=== PATIENT | female | born 1975 | race Caucasian/White ===

== ENCOUNTER 2017-01-08 14:53 | Emergency (ER) | payer MEDICARE, OTHER ==
[2017-01-08 16:21] LABS: Basophils % (Auto) 0.4 % (0.0-1.8); Hematocrit 39.6 % (30.3-42.9); Hemoglobin 13.4 gm/dl (10.1-14.3); Mean Corpuscular HGB Conc 34 % (30-34); Mean Corpuscular Hemoglobin 31 pg (28-32); Mean Corpuscular Volume 91 fl (79-97); Platelet Count 219 K/mm3 (140-440); Red Blood Count 4.36 M/mm3 (3.65-5.03); Red Cell Distribution Width 13.2 % (13.2-15.2); White Blood Count 8.6 K/mm3 (4.5-11.0)
[2017-01-08 16:25] LABS: Anion Gap 16 mmol/L; BUN/Creatinine Ratio 19; Blood Urea Nitrogen 13 mg/dL (7-17); Calcium 9.6 mg/dL (8.4-10.2); Carbon Dioxide 26 mmol/L (22-30); Chloride 99.7 mmol/L (98-107); Glucose 86 mg/dL (65-100); Potassium 4.1 mmol/L (3.6-5.0); Sodium 138 mmol/L (137-145)
[2017-01-08 16:57] LABS: Bilirubin,Urine NEG (Negative); Blood,Urine NEG (Negative); Ketones,Urine NEG (Negative); Leukocyte Esterase,Urine NEG (Negative); Mucus,Urine 1+ /HPF; Nitrite,Urine NEG (Negative); Protein,Urine <15 mg/dL mg/dL (Negative); Urobilinogen,Urine < 2.0 mg/dL (<2.0)
--- NOTE | 2017-01-08 22:02 | Emergency Department Report ---
HPI - General Chief Complaint: Nausea/Vomiting/Diarrhea Time Seen by Provider: 01/08/17 21:37 - HPI HPI: Room 6 The patient is a 41-year-old female presenting with a chief complaint of diarrhea. The patient states the past 3 days she's had diarrhea subjective fever or chills and periumbilical abdominal pain. The patient states the abdominal pain is periumbilical and constant. The patient gets her pain score 10/10. The patient has a history of gastroparesis and when asked if her presentation feels similar to gastroparesis she states it "feels like it but feels like something else." Location: Abdomen Duration: [See above] Quality: Pain Severity: 01/01 Modifying factors: [see above] Context: [see above] Mode of transportation: [not driving] ED Past Medical Hx - Past Medical History Previous Medical History?: Yes Hx Diabetes: Yes (type II) Additional medical history: Gastroparesis - Surgical History Past Surgical History?: Yes Additional Surgical History: PICC line right arm,. Ramirez catheter in the chest. Feeding tube, Hysterectomy. Breast augmentation - Family History Family history: no significant - Social History Smoking Status: Current Every Day Smoker (1 cigarette daily) Substance Use Type: None (denies illicit drug use) - Medications Home Medications: Home Medications Medication Instructions Recorded Confirmed Last Taken Type HYDROcodone/APAP 5-325 [[place] 1 - 2 each PO Q6HR PRN #10 tablet 01/08/17 Unknown Rx 5/325] ED Review of Systems ROS: Stated complaint: NVD Other details as noted in HPI Comment: All other systems reviewed and negative Constitutional: no symptoms reported, chills Eyes: denies: eye pain, eye discharge, vision change ENT: denies: ear pain, throat pain Respiratory: denies: cough, shortness of breath, wheezing Cardiovascular: denies: chest pain, palpitations Endocrine: no symptoms reported Gastrointestinal: abdominal pain, diarrhea Genitourinary: denies: urgency, dysuria, discharge Musculoskeletal: denies: back pain, joint swelling, arthralgia Skin: denies: rash, lesions Neurological: denies: headache, weakness, paresthesias Psychiatric: denies: anxiety, depression Hematological/Lymphatic: denies: easy bleeding, easy bruising Physical Exam - Physical Exam Vital Signs: Vital Signs 01/08/17 15:10 Temperature 97.7 F Pulse Rate 75 Respiratory 18 Rate Blood Pressure 102/77 O2 Sat by Pulse 99 Oximetry Physical Exam: GENERAL: The patient is well-developed well-nourished female lying on stretcher not appearing to be in acute distress. [] HEENT: Normocephalic. Atraumatic. Extraocular motions are intact. NECK: Supple. Trachea midline CHEST/LUNGS: Clear to auscultation. There is no respiratory distress noted. HEART/CARDIOVASCULAR: Regular. There is no tachycardia. There is no gallop rub or murmur. ABDOMEN: Abdomen is soft, with diffuse discomfort to palpation. There is no guarding. Patient has normal bowel sounds. There is no abdominal distention. SKIN: There is no rash. There is no edema. There is no diaphoresis. NEURO: The patient is awake, alert, and oriented. The patient is cooperative. The patient has normal speech MUSCULOSKELETAL: There is no evidence of acute injury. ED Course Vital Signs 01/08/17 15:10 Temperature 97.7 F Pulse Rate 75 Respiratory 18 Rate Blood Pressure 102/77 O2 Sat by Pulse 99 Oximetry ED Medical Decision Making - Lab Data Result diagrams: 01/08/17 15:51 01/08/17 15:51 Laboratory Tests 01/08/17 01/08/17 01/08/17 15:51 15:51 16:16 WBC 8.6 RBC 4.36 Hgb 13.4 Hct 39.6 MCV 91 MCH 31 MCHC 34 RDW 13.2 Plt Count 219 Lymph % (Auto) 34.4 [place] % (Auto) 4.8 Eos % (Auto) 0.0 Baso % (Auto) 0.4 Lymph # 3.0 [place] # 0.4 Eos # 0.0 Baso # 0.0 Seg Neutrophils % 60.4 Seg Neutrophils # 5.2 Sodium 138 Potassium 4.1 Chloride 99.7 Carbon Dioxide 26 Anion Gap 16 BUN 13 Creatinine 0.7 Estimated GFR > 60 BUN/Creatinine Ratio 19 Glucose 86 Calcium 9.6 Urine Color Yellow Urine Turbidity Clear Urine pH 5.0 Ur Specific [place] 1.026 Urine Protein <15 mg/dl Urine Glucose (UA) Neg Urine Ketones Neg Urine Blood Neg Urine Nitrite Neg Urine Bilirubin Neg Urine Urobilinogen < 2.0 Ur Leukocyte Esterase Neg Urine WBC (Auto) 2.0 Urine RBC (Auto) 1.0 U Epithel Cells (Auto) 4.0 Urine Mucus 1+ - Radiology Data Radiology results: report reviewed (CT abdomen and pelvis), image reviewed (CT abdomen pelvis) CT abdomen and pelvis (read by radiologist)-no evidence of acute disease in the abdomen - Differential Diagnosis gastroparesis, enteritis Critical care attestation.: If time is entered above; I have spent that time in minutes in the direct care of this critically ill patient, excluding procedure time. ED Disposition Clinical Impression: Diarrhea, Abdominal pain, Gastroparesis Disposition: TO HOME OR SELFCARE Is pt being admited?: No Does the pt Need Aspirin: No Condition: Stable Instructions: Acute Diarrhea (ED) Additional Instructions: Return to the emergency department immediately should you develop worsening symptoms, fever, inability to tolerate food or liquid or any other concerns. Prescriptions: HYDROcodone/APAP 5-325 [[place] 5/325] 1 - 2 each PO Q6HR PRN #10 tablet PRN Reason: Pain Referrals: PRIMARY CARE, [Primary Care Provider] - [facility]EL[facility] Dr. Garcia, gastroenterology [Other] - [facility] Time of Disposition: 23:41
[2017-01-08] MEDS ORDERED: MORPHINE ONE ×2 (22:12→23:09)
[2017-01-08] MEDS ORDERED: NACL 0.9% 1000 ML 1,000 ML ONE (22:13)
[2017-01-08] MEDS: MORPHINE IV ONE ×2 (22:20→23:09)
[2017-01-08] MEDS: ZOFRAN IV ONE (22:21)
--- NOTE | 2017-01-08 23:37 | Cat Scan Report ---
FINAL REPORT PROCEDURE: CT abdomen with contrast. TECHNIQUE: Computerized axial tomography of the abdomen was performed following the IV injection of iodinated nonionic contrast. HISTORY: Diffuse abdominal pain, nausea and vomiting. COMPARISON: No prior studies are available for comparison. FINDINGS: The lung bases are clear. There are no pleural effusions. The heart size is normal. There are bilateral breast prostheses. There is an external catheter that appears to enter the subcutaneous tissues of the left breast. This happens medially. This catheter is of uncertain significance. The liver, spleen and pancreas appear normal. The gallbladder is present. There is a small mass in the medial limb of the right adrenal gland. This has fairly low attenuation and measures 13.6 millimeters x 9.7 millimeters in cross-section. This is consistent with a small adenoma. Both kidneys appear normal in size and configuration. The abdominal aorta has a normal caliber. There is no retroperitoneal adenopathy. There is a gastrostomy tube that terminates in the 1st portion of the duodenum. The unopacified gastrointestinal tract is unremarkable as far as visualized. A normal appendix is visible. The regional skeleton appears intact. The pelvis was not scanned. IMPRESSION: Small catheter of uncertain significance entering the subcutaneous tissues of the left breast. Gastrostomy tube terminating in duodenal bulb. Bilateral breast prostheses. Small right adrenal adenoma. No evidence of acute disease in the abdomen.
[2017-01-09] MEDS: NORCO PO ONE (00:20)
[2017-01-09 00:41] VITALS: BP 107/75
== END 2017-01-09 00:40 | disposition home or self-care (01) ==
LOC: ED 14:53
DX: K31.84 Gastroparesis (principal); R10.33 Periumbilical pain; R19.7 Diarrhea, unspecified; E11.9 Type 2 diabetes mellitus without complications; F17.200 Nicotine dependence, unspecified, uncomplicated
CPT/HCPCS: 36415; 74160; 80048; 81001; 82962; 85025; 96374; 96375; 96376; 99284; J2270; J2405; J7030; Q9967

== ENCOUNTER 2017-02-16 21:44 | Emergency (ER) | payer OTHER ==
[2017-02-17 01:51] LABS: Basophils % (Auto) 0.8 % (0.0-1.8); Eosinophils % (Auto) 0.1 % (0.0-4.3); Hematocrit 35.8 % (30.3-42.9); Hemoglobin 12.3 gm/dl (10.1-14.3); Mean Corpuscular HGB Conc 34 % (30-34); Mean Corpuscular Hemoglobin 31 pg (28-32); Mean Corpuscular Volume 92 fl (79-97); Platelet Count 203 K/mm3 (140-440); Red Blood Count 3.92 M/mm3 (3.65-5.03); White Blood Count 7.7 K/mm3 (4.5-11.0)
[2017-02-17 01:53] LABS: Alanine Aminotransferase 60 units/L (7-56); Albumin 4.4 g/dL (3.9-5); Albumin/Globulin Ratio 1.5 %; Alkaline Phosphatase 102 units/L (35-129); Anion Gap 16 mmol/L; BUN/Creatinine Ratio 16; Bilirubin,Total < 0.20 mg/dL (0.1-1.2); Blood Urea Nitrogen 11 mg/dL (7-17); Calcium 9.3 mg/dL (8.4-10.2); Carbon Dioxide 27 mmol/L (22-30); Chloride 101.7 mmol/L (98-107); Glucose 89 mg/dL (65-100); Lipase 14 units/L (13-60); Potassium 4.2 mmol/L (3.6-5.0); Sodium 140 mmol/L (137-145); Total Protein 7.3 g/dL (6.3-8.2)
[2017-02-17 03:26] LABS: Bacteria,Urine 1+ /HPF (Negative); Bilirubin,Urine NEG (Negative); Blood,Urine NEG (Negative); Ketones,Urine NEG (Negative); Leukocyte Esterase,Urine SM (Negative); Mucus,Urine 1+ /HPF; Nitrite,Urine NEG (Negative); Protein,Urine <15 mg/dL mg/dL (Negative); Urobilinogen,Urine < 2.0 mg/dL (<2.0)
[2017-02-17] MEDS ORDERED: NORCO 5/325 PO ONE (08:50)
[2017-02-17] MEDS ORDERED: ZOFRAN IV ONE (10:22)
[2017-02-17] MEDS ORDERED: NACL 0.9% 1000 ML 1,000 ML IV ONE (10:22)
[2017-02-17] MEDS ORDERED: MORPHINE IV ONE (10:22)
--- NOTE | 2017-02-17 10:29 | Emergency Department Report ---
HPI - General Chief Complaint: Abdominal Pain Time Seen by Provider: 02/17/17 10:07 - HPI HPI: This is a 41-year-old female who presents to the emergency department with complaint of a 2 day history of nausea, vomiting, diarrhea and abdominal pain/ cramping. She has a history of diabetic gastroparesis and has a severe course of this causes her to get TPN 18 hours a day, IV fluid 2 hours a day, and has a feeding tube in her abdomen. She also has some home health care and the nurse came today and tried to access her chest port but it would not flush or pull back any blood. Without access from the chest port she has been unable to take anything for her symptoms. She spoke to her donor relations associate and was advised to come to the emergency department. Her donor relations associate is Dr. Mckinney through [facility]. She has an oncologist for the fascia paresis who also placed to the chest port. She has a surgical history of hysterectomy. No recent travel or sick contacts at home. She denies any fever, chest pain, shortness of breath. ED Past Medical Hx - Past Medical History Previous Medical History?: Yes Hx Diabetes: Yes (type II) Additional medical history: Gastroparesis, Unable to eat or drink on TPN 18 hours a day and IVF 2 hours a day, REBEL Button - Surgical History Past Surgical History?: Yes Additional Surgical History: PICC line right arm,. Ramirez catheter in the chest. Feeding tube, Hysterectomy. Breast augmentation - Social History Smoking Status: Never Smoker - Medications Home Medications: Home Medications Medication Instructions Recorded Confirmed Last Taken Type HYDROcodone/APAP 7.5-325 [[place]] 15 ml PO Q4-6H PRN #150 ml 01/08/17 Unknown Rx Acetaminophen with Codeine 15 ml PO Q6H PRN #180 ml 02/17/17 Unknown Rx [Acetaminop-Codeine 120-12 mg/5] Ondansetron [Zofran Odt] 4 mg PO Q8HR PRN #10 tab.rapdis 02/17/17 Unknown Rx ED Review of Systems ROS: Stated complaint: ABD PAIN/VOMITING/DIARRHEA/HEADACHE Other details as noted in HPI Comment: All other systems reviewed and negative Constitutional: denies: chills, fever Eyes: denies: eye pain, eye discharge, vision change ENT: denies: ear pain, throat pain Respiratory: denies: cough, shortness of breath, wheezing Cardiovascular: denies: chest pain, palpitations Gastrointestinal: abdominal pain, nausea, vomiting, diarrhea Genitourinary: denies: urgency, dysuria, discharge Musculoskeletal: denies: back pain, joint swelling, arthralgia Skin: denies: rash, lesions Neurological: denies: headache, weakness, paresthesias Physical Exam - Physical Exam Vital Signs: Vital Signs 02/17/17 02/17/17 00:19 05:42 Temperature 98.2 F 97.9 F Pulse Rate 83 75 Respiratory 18 18 Rate Blood Pressure 110/80 115/73 O2 Sat by Pulse 99 98 Oximetry Physical Exam: GENERAL: The patient is well-developed well-nourished. HENT: Normocephalic. Atraumatic. Patient has moist mucous membranes. EYES: Extraocular motions are intact. Pupils equal reactive to light bilaterally. NECK: Supple. Trachea is midline. CHEST/LUNGS: Clear to auscultation. There is no respiratory distress noted. HEART/CARDIOVASCULAR: Regular. There is no tachycardia. There is no gallop rub or murmur. ABDOMEN: Abdomen is soft. There is some mild generalized tenderness to palpation of the abdomen. No guarding rebound tenderness. There is a feeding tube in place. Patient has normal bowel sounds. There is no abdominal distention. SKIN: Skin is warm and dry. NEURO: The patient is awake, alert, and oriented. The patient is cooperative. The patient has no focal neurologic deficits. The patient has normal speech. MUSCULOSKELETAL: There is no tenderness or deformity. There is no limitation range of motion. There is no evidence of acute injury. ED Course Vital Signs 02/17/17 02/17/17 00:19 05:42 Temperature 98.2 F 97.9 F Pulse Rate 83 75 Respiratory 18 18 Rate Blood Pressure 110/80 115/73 O2 Sat by Pulse 99 98 Oximetry ED Medical Decision Making - Lab Data Result diagrams: 02/17/17 01:01 02/17/17 01:01 - Radiology Data Radiology results: image reviewed interpreted by me: Abdominal x-ray shows a large amount of stool throughout the intestines but otherwise no signs of obstruction or any other acute processes. - Medical Decision Making 41-year-old female with history of gastroparesis presents with some nausea and vomiting and abdominal discomfort. Labs and unremarkable. Abdominal x-ray shows stool throughout the intestines but no signs of obstruction and this was confirmed by radiology. She was given some IV fluid, pain medication, nausea medication and upon reevaluation she is feeling improved. We were able to show that her catheter in the chest is working. She has good follow-up with both primary care and gastroenterology. She appears safe for discharge home at this time. Vital signs stable throughout her ED course. She will be discharged home with a 3 day course of pain medication and sling for nausea and encouraged follow-up with her donor relations associate in the next 24 hours. She will return to the ER with any worsening of her symptoms or any acute distress. - Differential Diagnosis food poisoning, viral syndrome, diabetic gastroparesis, colitis Critical Care Time: No Critical care attestation.: If time is entered above; I have spent that time in minutes in the direct care of this critically ill patient, excluding procedure time. ED Disposition Clinical Impression: Gastroparesis due to DM Abdominal pain Qualifiers: Abdominal location: generalized Qualified Code(s): R10.84 - Generalized abdominal pain Nausea & vomiting Qualifiers: Vomiting type: unspecified Vomiting Intractability: non-intractable Qualified Code(s): R11.2 - Nausea with vomiting, unspecified Disposition: DC-01 TO HOME OR SELFCARE Is pt being admited?: No Condition: Stable Instructions: Acute Nausea and Vomiting (ED), Abdominal Pain (ED) Additional Instructions: These follow-up with your donor relations associate and primary care doctor in the next few days. Return to the emergency Department with any worsening of your symptoms or any acute distress. You have been prescribed a medication that is sedating and therefore should not be taken prior to driving, working, and responsible for children and in no way should be mixed with alcohol of any quantity. Prescriptions: Acetaminophen with Codeine [Acetaminop-Codeine 120-12 mg/5] 15 ml PO Q6H PRN # 180 ml PRN Reason: Pain Ondansetron [Zofran Odt] 4 mg PO Q8HR PRN #10 tab.rapdis PRN Reason: Nausea Referrals: PRIMARY CARE, [Primary Care Provider] - [facility] Time of Disposition: 14:07
[2017-02-17] MEDS ORDERED: DILAUDID IV ONE (10:59)
[2017-02-17 11:26] VITALS: BP 121/74
--- NOTE | 2017-02-17 12:23 | XRay Report ---
Abdomen 2 views: History: Abdominal pain. Findings: No free intraperitoneal air. No bowel distention or wall thickening due to stool in colon. No radiopaque calculus or abnormal calcification. Impression: Stool in colon. No bowel distention.
[2017-02-17] MEDS ORDERED: TYLENOL/CODEINE FEEDTUBE ONE (12:49)
== END 2017-02-17 14:50 | disposition home or self-care (01) ==
LOC: ED 21:44
DX: E11.43 Type 2 diabetes mellitus with diabetic autonomic (poly)neuropathy (principal); K31.84 Gastroparesis; R10.84 Generalized abdominal pain; R11.2 Nausea with vomiting, unspecified; Z88.8 Allergy status to other drugs, medicaments and biological substances; Z88.0 Allergy status to penicillin
CPT/HCPCS: 36415; 74020; 80053; 81001; 82962; 83690; 85025; 96361; 96374; 96375; 99284; J1170; J2270; J2405; J7030

== ENCOUNTER 2017-07-02 12:56 | Emergency (ER) | payer OTHER ==
[2017-07-02 13:10] VITALS: BP 91/66
--- NOTE | 2017-07-02 14:32 | Emergency Department Report ---
ED ENT HPI - General Chief complaint: Dental/Oral Stated complaint: EAR/HEAD/NECK PAIN Time Seen by Provider: 07/02/17 14:13 Source: patient Mode of arrival: Ambulatory Limitations: No Limitations - History of Present Illness Initial comments: Patient is a 41-year-old female who is presenting with right sided facial pain. Patient states that for the past 3 days she has had pain in the right lower jaw with radiation of pain to the right ear neck. Patient states she has a worn tooth in that area that she believes the culprit. Patient denies any nausea vomiting diarrhea fever at this time. Patient does have some mild dizziness but this is chronic patient has a history of gastroparesis as a feeding tube states her blood pressure normally runs around 95 systolic. - Related Data Previous Rx's Medication Instructions Recorded Last Taken Type Acetaminophen with Codeine 15 ml PO Q6H PRN #180 ml 02/17/17 Unknown Rx [Acetaminop-Codeine 120-12 mg/5] Ondansetron [Zofran Odt] 4 mg PO Q8HR PRN #10 tab.rapdis 02/17/17 Unknown Rx Clindamycin [Clindamycin CAP] 600 mg PO BID 7 Days capsule 07/02/17 Unknown Rx HYDROcodone/APAP 7.5-325 [[place] 15 ml PO Q4-6H PRN #150 ml 07/02/17 Unknown Rx 7.5-325 mg per 15 ML] Allergies Allergy/AdvReac Type Severity Reaction Status Date / Time ketorolac [From Toradol] Allergy Swelling Verified 01/08/17 15:10 Penicillins Allergy Swelling Verified 01/08/17 15:09 promethazine [From Phenergan] Allergy Swelling Verified 01/08/17 15:10 tramadol Allergy Swelling Verified 01/08/17 15:10 ED Dental HPI - General Chief complaint: Dental/Oral Stated complaint: EAR/HEAD/NECK PAIN Time Seen by Provider: 07/02/17 14:13 Source: patient Mode of arrival: Ambulatory Limitations: No Limitations - Related Data Previous Rx's Medication Instructions Recorded Last Taken Type Acetaminophen with Codeine 15 ml PO Q6H PRN #180 ml 02/17/17 Unknown Rx [Acetaminop-Codeine 120-12 mg/5] Ondansetron [Zofran Odt] 4 mg PO Q8HR PRN #10 tab.rapdis 02/17/17 Unknown Rx Clindamycin [Clindamycin CAP] 600 mg PO BID 7 Days capsule 07/02/17 Unknown Rx HYDROcodone/APAP 7.5-325 [[place] 15 ml PO Q4-6H PRN #150 ml 07/02/17 Unknown Rx 7.5-325 mg per 15 ML] Allergies Allergy/AdvReac Type Severity Reaction Status Date / Time ketorolac [From Toradol] Allergy Swelling Verified 01/08/17 15:10 Penicillins Allergy Swelling Verified 01/08/17 15:09 promethazine [From Phenergan] Allergy Swelling Verified 01/08/17 15:10 tramadol Allergy Swelling Verified 01/08/17 15:10 ED Review of Systems ROS: Stated complaint: EAR/HEAD/NECK PAIN Other details as noted in HPI Comment: All other systems reviewed and negative ED Past Medical Hx - Past Medical History Hx Diabetes: Yes (type II) Additional medical history: Gastroparesis, Unable to eat or drink on TPN 18 hours a day and IVF 2 hours a day, REBEL Button - Surgical History Additional Surgical History: Infusaport left chest wall. G-tube(2016) and J- tube(2017), Hysterectomy. Breast augmentation - Social History Smoking Status: Never Smoker Substance Use Type: None - Medications Home Medications: Home Medications Medication Instructions Recorded Confirmed Last Taken Type Acetaminophen with Codeine 15 ml PO Q6H PRN #180 ml 02/17/17 Unknown Rx [Acetaminop-Codeine 120-12 mg/5] Ondansetron [Zofran Odt] 4 mg PO Q8HR PRN #10 tab.rapdis 02/17/17 Unknown Rx Clindamycin [Clindamycin CAP] 600 mg PO BID 7 Days capsule 07/02/17 Unknown Rx HYDROcodone/APAP 7.5-325 [[place] 15 ml PO Q4-6H PRN #150 ml 07/02/17 Unknown Rx 7.5-325 mg per 15 ML] ED Physical Exam - General Limitations: No Limitations General appearance: alert, in no apparent distress - Head Head exam: Present: atraumatic, normocephalic - Eye Eye exam: Present: normal appearance - ENT ENT exam: Present: mucous membranes moist, other (patient has tenderness to the area of the first molar on the right bottom. This tooth is worn down to the level of the gum.) - Neck Neck exam: Present: normal inspection - Respiratory Respiratory exam: Present: normal lung sounds bilaterally. Absent: respiratory distress - Cardiovascular Cardiovascular Exam: Present: regular rate, normal rhythm. Absent: systolic murmur, diastolic murmur, rubs, gallop - GI/Abdominal GI/Abdominal exam: Present: soft, normal bowel sounds - Extremities Exam Extremities exam: Present: normal inspection - Back Exam Back exam: Present: normal inspection - Neurological Exam Neurological exam: Present: alert, oriented X3 - Psychiatric Psychiatric exam: Present: normal affect, normal mood - Skin Skin exam: Present: warm, dry, intact, normal color. Absent: rash ED Course Vital Signs 07/02/17 13:06 Temperature 98.6 F Pulse Rate 96 H Respiratory 16 Rate Blood Pressure 91/66 O2 Sat by Pulse 96 Oximetry ED Medical Decision Making - Medical Decision Making Patient will be given follow-up with sinus at medical clinic to the dental area. Patient also will be discharged home with antibiotics and pain meds. Critical care attestation.: If time is entered above; I have spent that time in minutes in the direct care of this critically ill patient, excluding procedure time. ED Disposition Clinical Impression: Dental abscess Disposition: DC-01 TO HOME OR SELFCARE Is pt being admited?: No Does the pt Need Aspirin: No Condition: Stable Instructions: Dental Abscess (ED) Prescriptions: Clindamycin [Clindamycin CAP] 600 mg PO BID 7 Days capsule HYDROcodone/APAP 7.5-325 [[place] 7.5-325 mg per 15 ML] 15 ml PO Q4-6H PRN #150 ml PRN Reason: Pain Referrals: [facility] [Outside] - 3-5 Days
== END 2017-07-02 14:36 | disposition home or self-care (01) ==
LOC: ED 12:56
DX: K04.7 Periapical abscess without sinus (principal); E11.9 Type 2 diabetes mellitus without complications; Z88.6 Allergy status to analgesic agent; Z88.1 Allergy status to other antibiotic agents; Z88.8 Allergy status to other drugs, medicaments and biological substances
CPT/HCPCS: 99282

== ENCOUNTER 2017-07-14 22:18 | Emergency (ER) | payer OTHER ==
[2017-07-14 23:33] LABS: Basophils % (Auto) 0.3 % (0.0-1.8); Hemoglobin 12.3 gm/dl (10.1-14.3); Lymphocytes # (Auto) 2.7 K/mm3 (1.2-5.4); Lymphocytes % (Auto) 30.7 % (13.4-35.0); Mean Corpuscular HGB Conc 33 % (30-34); Mean Corpuscular Hemoglobin 30 pg (28-32); Mean Corpuscular Volume 90 fl (79-97); Monocytes # (Auto) 0.5 K/mm3 (0.0-0.8); Monocytes % (Auto) 5.2 % (0.0-7.3); Platelet Count 259 K/mm3 (140-440); Red Blood Count 4.12 M/mm3 (3.65-5.03); Red Cell Distribution Width 12.8 % (13.2-15.2)
[2017-07-14 23:48] LABS: Alanine Aminotransferase 11 units/L (7-56); Albumin 3.9 g/dL (3.9-5); BUN/Creatinine Ratio 13; Blood Urea Nitrogen 9 mg/dL (7-17); Calcium 8.8 mg/dL (8.4-10.2); Hemolysis Index 7; Lipase 15 units/L (13-60)
[2017-07-15] MEDS ORDERED: MORPHINE IV ONE (07:12)
[2017-07-15] MEDS ORDERED: ZOFRAN IV ONE ×2 (07:52→10:41)
[2017-07-15] MEDS ORDERED: NACL 0.9% 1000 ML 1,000 ML IV ONE (08:18)
--- NOTE | 2017-07-15 08:18 | Emergency Department Report ---
ED N/V/D HPI - General Chief complaint: Abdominal Pain Stated complaint: FEVER,HEADACHE,DIARRHEA,STOMACH PAIN Time Seen by Provider: 07/15/17 06:14 Source: patient Mode of arrival: Ambulatory Limitations: No Limitations - History of Present Illness Initial comments: Pt is a 41 yo female with a history of diabetic gastroparesis who presents with vomiting, diarrhea, and abdominal pain. Pt states she had a j tube placed in [place] . Pt states she also has a port. Pt states she has had these symptoms for 5 days. Pt states she vomited about 10 times and had the same amount of episodes of diarrhea. pt states she also had fever, sore throat, and feeling ill. PT STATES THAT SHE HAS A J TUBE DUE TO HER GASTROPARESIS AND IS ON TPN. PT STATES HER GI IS DR WILSON AND DR ANAND IS HER SURGEON. PT STATES SHE TAKE TYLENOL #3 AT HOME FOR HER PAIN. MD complaint: nausea, vomiting, diarrhea Location: epigastric Quality: cramping Improves with: rest Context: history of abdominal surg - Related Data Previous Rx's Medication Instructions Recorded Last Taken Type Ondansetron [Zofran ODT TAB] 4 mg PO Q8HR PRN #10 tab.rapdis 07/15/17 Unknown Rx Allergies Allergy/AdvReac Type Severity Reaction Status Date / Time ketorolac [From Toradol] Allergy Swelling Verified 01/08/17 15:10 metoclopramide [From Reglan] Allergy Unknown Verified 07/14/17 22:49 Penicillins Allergy Swelling Verified 01/08/17 15:09 prochlorperazine Allergy Unknown Verified 07/14/17 22:49 [From Compazine] promethazine [From Phenergan] Allergy Swelling Verified 01/08/17 15:10 tramadol Allergy Swelling Verified 01/08/17 15:10 ED Review of Systems ROS: Stated complaint: FEVER,HEADACHE,DIARRHEA,STOMACH PAIN Other details as noted in HPI ED Past Medical Hx - Past Medical History Hx Diabetes: Yes (type II) Additional medical history: Gastroparesis, Unable to eat or drink on TPN 18 hours a day and IVF 2 hours a day, REBEL Button - Surgical History Additional Surgical History: Infusaport left chest wall. G-tube(2016) and J- tube(2017), Hysterectomy. Breast augmentation - Social History Smoking Status: Never Smoker Substance Use Type: None - Medications Home Medications: Home Medications Medication Instructions Recorded Confirmed Last Taken Type Ondansetron [Zofran ODT TAB] 4 mg PO Q8HR PRN #10 tab.rapdis 07/15/17 Unknown Rx ED Physical Exam - General Limitations: No Limitations General appearance: alert - Head Head exam: Present: atraumatic, normocephalic - Eye Eye exam: Present: normal appearance, PERRL, EOMI - ENT ENT exam: Present: normal exam - Neck Neck exam: Present: normal inspection - Respiratory Respiratory exam: Present: normal lung sounds bilaterally. Absent: respiratory distress, wheezes, rales, rhonchi, stridor - Cardiovascular Cardiovascular Exam: Present: normal rhythm, tachycardia, normal heart sounds - GI/Abdominal GI/Abdominal exam: Present: soft, tenderness (midepigastric), normal bowel sounds. Absent: distended, guarding, rebound - Extremities Exam Extremities exam: Present: normal inspection, full ROM - Back Exam Back exam: Present: normal inspection - Neurological Exam Neurological exam: Present: alert, oriented X3, CN II-XII intact, normal gait - Skin Skin exam: Present: other (multiple tattooes) ED Course Vital Signs 07/14/17 07/14/17 07/15/17 22:33 22:44 05:32 Temperature 98.2 F 98.2 F 98.0 F Pulse Rate 105 H 110 H 89 Respiratory 18 18 20 Rate Blood Pressure 121/68 121/68 Blood Pressure 119/73 [Left] O2 Sat by Pulse 97 98 Oximetry 07/15/17 07/15/17 09:47 12:10 Temperature 98.6 F Pulse Rate 85 Respiratory 16 18 Rate Blood Pressure Blood Pressure 97/59 109/73 [Left] O2 Sat by Pulse 99 Oximetry - Reevaluation(s) Reevaluation #1: 07/15/17 11:30 STABLE ED COURSE; PT AWARE THAT SHE WILL BE GOING HOME IF SHE CONTINUES TO REMAIN STABLE. WE HAVE REVIEWED HER LAB STUDIES AND G TUBE STUDY ED Medical Decision Making - Lab Data Result diagrams: 07/14/17 23:13 07/14/17 23:13 - Medical Decision Making PT STATES THAT SHE WAS FEELING NAUSEOUS SO I GAVE HER ZOFRAN; I DISCUSSED WITH THE PT HER FINDINGS; I OFFERED THE PT SOME BENTYL AND SHE REFUSED SAYING SHE HAS SOME AT HOME. PT STATES SHE WILL CALL HER SURGEON. I INFORMED THE PT TO FOLLOW UP WITH HER GI DOCTOR. I HAD REPOSITIONED THE J TUBE THE BALLOON WAS OUT OF THE TRACT. PT STATED THAT IT CAME OUT TODAY WHEN SHE WAS VOMITING. I HAD INFLATED THE BALLOON PRIOR THE G TUBE STUDY FOR PLACMENT VERIFICATION. - Differential Diagnosis DIABETIC GASTROPARESIS, VIRAL ILLNESS Critical care attestation.: If time is entered above; I have spent that time in minutes in the direct care of this critically ill patient, excluding procedure time. ED Disposition Clinical Impression: Diabetic gastroparesis, Jejunostomy tube present, Nausea & vomiting Disposition: - TO HOME OR SELFCARE Is pt being admited?: No Does the pt Need Aspirin: No Condition: Stable Instructions: Diabetes Mellitus Type 2 in Adults (ED), Acute Nausea and Vomiting (ED), Abdominal Pain (ED) Additional Instructions: BE SURE TO FOLLOW UP WITH YOUR GI DOCTOR-CALL TODAY FOR A FOLLW UP APPT; RETURN SOONER IF WORSE OR IF FURTHER CONCERNS TAKE ZOFRAN NEEDED FOR NAUSEA Prescriptions: Ondansetron [Zofran ODT TAB] 4 mg PO Q8HR PRN #10 tab.rapdis PRN Reason: Nausea Referrals: RADHA WYATT MD [Primary Care Provider] - 3-5 Days Time of Disposition: 12:19 Print Language: KOREAN
[2017-07-15] MEDS ORDERED: DILAUDID IV ONE (08:19)
--- NOTE | 2017-07-15 09:42 | XRay Report ---
G-TUBE STUDY History: Evaluate tube location. Findings: A PEG tube is identified terminating in the left upper quadrant. Following the injection of oral contrast, multiple normal caliber small bowel loops in the left upper quadrant are opacified. The gastric cavity is not clearly identified on this exam. Please correlate with the patient's history. No evidence for obstruction or extravasation. Impression: Injection of the PEG tube outlines multiple normal appearing small bowel loops in the left upper quadrant.
[2017-07-15 12:11] VITALS: BP 109/73
== END 2017-07-15 12:56 | disposition home or self-care (01) ==
LOC: ED 22:18
DX: E11.43 Type 2 diabetes mellitus with diabetic autonomic (poly)neuropathy (principal); K31.84 Gastroparesis; Z88.6 Allergy status to analgesic agent; Z88.0 Allergy status to penicillin; Z88.8 Allergy status to other drugs, medicaments and biological substances
CPT/HCPCS: 36415; 43760; 74018; 80053; 83690; 85025; 96361; 96374; 96375; 96376; 99283; J1170; J2270; J2405; J7030; Q9967

== ENCOUNTER 2017-10-03 15:25 | Emergency (ER) | payer SELFPAY ==
[2017-10-03 15:37] VITALS: BP 125/74
[2017-10-03 16:16] LABS: Bilirubin,Urine NEG (Negative); Blood,Urine LG (Negative); Mucus,Urine 3+ /HPF; Urobilinogen,Urine < 2.0 mg/dL (<2.0)
[2017-10-03 16:21] LABS: Color,Urine Red (Yellow); RBC,Urine > 182.0 /HPF (0.0-6.0)
[2017-10-03 16:22] LABS: Hematocrit 38.4 % (30.3-42.9); Hemoglobin 12.3 gm/dl (10.1-14.3); Mean Corpuscular HGB Conc 32 % (30-34); Mean Corpuscular Hemoglobin 29 pg (28-32); Mean Corpuscular Volume 92 fl (79-97); Red Blood Count 4.19 M/mm3 (3.65-5.03); Red Cell Distribution Width 15.9 % (13.2-15.2)
[2017-10-03 16:23] LABS: Basophils % (Auto) 0.4 % (0.0-1.8); Lymphocytes # (Auto) 2.4 K/mm3 (1.2-5.4); Lymphocytes % (Auto) 34.8 % (13.4-35.0); Monocytes # (Auto) 0.5 K/mm3 (0.0-0.8); Monocytes % (Auto) 7.5 % (0.0-7.3); Platelet Count 218 K/mm3 (140-440)
[2017-10-03 16:26] LABS: Alanine Aminotransferase 15 units/L (7-56); Albumin 4.4 g/dL (3.9-5); BUN/Creatinine Ratio 8; Blood Urea Nitrogen 6 mg/dL (7-17); Hemolysis Index 8; Lipase 12 units/L (13-60)
[2017-10-03] MEDS ORDERED: MORPHINE IV ONE (16:39)
[2017-10-03] MEDS ORDERED: ZOFRAN IV ONE (16:39)
[2017-10-03] MEDS ORDERED: NACL 0.9% 1000 ML 1,000 ML IV ONE (16:40)
--- NOTE | 2017-10-03 16:44 | Emergency Department Report ---
ED Abdominal Pain HPI - General Chief Complaint: Urogenital-Female Stated Complaint: BLOOD IN URINE Time Seen by Provider: 10/03/17 16:16 Source: patient Mode of arrival: Ambulatory Limitations: No Limitations - History of Present Illness Initial Comments: Patient is 41 years old female history of gastroparesis on TPN. Patient presented to the ER complaining of bilateral flank pain for the last 2 days associated with hematuria. Patient denied any fever or vomiting. No dysuria or urinary frequency. Patient was recently discharged from the hospital after she was admitted for sepsis secondary to port infection. MD Complaint: flank pain -: Last night Location: L flank, R flank Radiation: none Migration to: no migration Severity: moderate Severity scale (0 -10): 5 Quality: aching Consistency: constant Improves With: nothing Worsens With: nothing - Related Data Previous Rx's Medication Instructions Recorded Last Taken Type Acetaminophen/Codeine [Tylenol 1 tab PO Q6H PRN #12 tab 09/12/17 Unknown Rx /Codeine # 3 tab] Ondansetron [Zofran ODT TAB] 4 mg PO Q8HR PRN #10 tab.rapdis 09/12/17 Unknown Rx Allergies Allergy/AdvReac Type Severity Reaction Status Date / Time ketorolac [From Toradol] Allergy Swelling Verified 01/08/17 15:10 metoclopramide [From Reglan] Allergy Unknown Verified 07/14/17 22:49 Penicillins Allergy Swelling Verified 01/08/17 15:09 prochlorperazine Allergy Unknown Verified 07/14/17 22:49 [From Compazine] promethazine [From Phenergan] Allergy Swelling Verified 01/08/17 15:10 tramadol Allergy Swelling Verified 01/08/17 15:10 adhesive tape AdvReac Itching Verified 09/04/17 10:45 ED Review of Systems ROS: Stated complaint: BLOOD IN URINE Other details as noted in HPI Comment: All other systems reviewed and negative Constitutional: denies: chills, fever Cardiovascular: denies: chest pain Gastrointestinal: denies: abdominal pain, nausea, vomiting, diarrhea, constipation, hematemesis, hematochezia Genitourinary: hematuria. denies: urgency, dysuria Neurological: denies: headache, weakness, numbness, paresthesias, confusion, abnormal gait ED Past Medical Hx - Past Medical History Previous Medical History?: Yes Hx Diabetes: (hypoglycemia) Hx Deep Vein Thrombosis: No Additional medical history: Gastroparesis, Unable to eat or drink on TPN 18 hours a day and IVF 2 hours a day, REBEL Button - Surgical History Past Surgical History?: Yes Hx Pacemaker: No Hx Internal Defibrillator: No Additional Surgical History: Infusaport left chest wall. G-tube(2016) and J- tube(2017), Hysterectomy. Breast augmentation, PICC line - Social History Smoking Status: Never Smoker Substance Use Type: Prescribed - Medications Home Medications: Home Medications Medication Instructions Recorded Confirmed Last Taken Type Acetaminophen/Codeine [Tylenol 1 tab PO Q6H PRN #12 tab 09/12/17 Unknown Rx /Codeine # 3 tab] Ondansetron [Zofran ODT TAB] 4 mg PO Q8HR PRN #10 tab.rapdis 09/12/17 Unknown Rx ED Physical Exam - General Limitations: No Limitations General appearance: alert, in no apparent distress - Head Head exam: Present: atraumatic, normocephalic, normal inspection - Eye Eye exam: Present: normal appearance - ENT ENT exam: Present: normal exam, normal orophraynx, mucous membranes moist - Neck Neck exam: Present: normal inspection, full ROM. Absent: tenderness, meningismus - Respiratory Respiratory exam: Present: normal lung sounds bilaterally. Absent: respiratory distress, wheezes, rales, rhonchi, chest wall tenderness - Cardiovascular Cardiovascular Exam: Present: regular rate, normal rhythm, normal heart sounds - GI/Abdominal GI/Abdominal exam: Present: soft, normal bowel sounds. Absent: distended, tenderness, guarding, rebound, rigid, diminished bowel sounds, organomegaly, mass, bruit, pulsatile mass - Extremities Exam Extremities exam: Present: normal inspection, normal capillary refill. Absent: calf tenderness - Back Exam Back exam: Present: normal inspection, full ROM, CVA tenderness (R), CVA tenderness (L). Absent: muscle spasm, paraspinal tenderness, vertebral tenderness - Neurological Exam Neurological exam: Present: alert, oriented X3, CN II-XII intact, normal gait, reflexes normal - Skin Skin exam: Present: warm, intact, normal color ED Course Vital Signs 10/03/17 10/03/17 15:32 17:04 Temperature 98.4 F Pulse Rate 85 Respiratory 20 20 Rate Blood Pressure 125/74 O2 Sat by Pulse 97 Oximetry - Reevaluation(s) Reevaluation #1: 10/03/17 18:08 Patient stated that she is feeling much better. I informed about her CT abdomen and pelvis results and I strongly advised her to follow up with her primary care physician. I also advised her to retain to the ER if her symptoms are not improving. ED Medical Decision Making - Lab Data Result diagrams: 10/03/17 15:42 10/03/17 15:42 - Radiology Data Radiology results: report reviewed Referring Physician: AIDEE RODRIGEZ Patient Name: CHUY MIRELES Date of : 1975 Sex: Female Report Date: 2017-10-03 Report Status: [place] [address] Cat Scan Report Signed Patient: CHUY REAL MR#: [id number] : 1975 Acct:[id number] Age/Sex: 41 / F ADM Date: 10/03/17 Loc: ED Attending Dr: Ordering Physician: AIDEE RODRIGEZ Date of Service: 10/03/17 Procedure(s): CT abdomen pelvis wo con Accession Number(s): [id number] cc: AIDEE RODRIGEZ FINAL REPORT PROCEDURE: CT ABDOMEN PELVIS WO CON TECHNIQUE: Computerized axial tomography of the abdomen and pelvis was performed without intravenous contrast. This study is performed without intravascular contrast material and its sensitivity for abdominal and pelvic pathology, including neoplasms, inflammation, abscess, free fluid, thrombosis, arterial dissection and infarction, is reduced compared with a contrast enhanced study. HISTORY: ABDOMINAL PAIN/flank pain and hematuria COMPARISON: Prior CT scan abdomen and pelvis 09/03/2017 FINDINGS: Lower Lung valle: Portions of bilateral breast implants visualized. Lung bases are clear today. Upper Abdomen: The liver, gallbladder, unenhanced images of the pancreas and spleen are unremarkable. Kidneys, Ureters and Urinary bladder: There is a nonobstructing 3 millimeter calculus in the lower 3rd of the right kidney. The kidneys, the ureters and urinary bladder otherwise are unremarkable. Left adrenal gland is unremarkable. Oval low-density nodule right adrenal gland measuring 2.0 x 1.1 centimeter is unchanged. The appearance suggest a small adrenal adenoma. This has a density of approximately 3.4 Hounsfield units. Retroperitoneum: Abdominal aorta appears normal. Nonspecific subcentimeter lymph nodes are seen in the retroperitoneum. No pathologically enlarged lymph nodes are identified. Bowel: Peg tube in place as well as gastrostomy tube. These are unchanged compared to the prior study and appear to be in good position. Bowel loops otherwise unremarkable. No evidence of bowel obstruction ascites or free intraperitoneal gas. Normal-appearing appendix seen in the right lower quadrant. Reproductive organs: Uterus is surgically absent. No abnormal adnexal masses are seen. Other: No acute bony abnormalities are identified. IMPRESSION: Stable small nonobstructing calculus lower 3rd right kidney. Kidneys ureters and urinary bladder otherwise are unremarkable. Peg tube and percutaneous jejunal tube remain in place unchanged in appear to be good position.. Prior hysterectomy. Transcribed By: KISHORE Dictated By: ERNESTINE DANIELS MD Electronically Authenticated By: ERNESTINE DANIELS MD Signed Date/Time: 10/03/171740 DD/ 40 TD/TT: 10/03/171740 Critical care attestation.: If time is entered above; I have spent that time in minutes in the direct care of this critically ill patient, excluding procedure time. ED Disposition Clinical Impression: Flank pain, Hematuria, UTI (urinary tract infection) Disposition: - TO HOME OR SELFCARE Is pt being admited?: No Condition: Stable Instructions: Kidney Stones (ED), Urinary Tract Infection in Women (ED), Flank Pain (ED) Referrals: PRIMARY CAREMD [Primary Care Provider] - 3-5 Days
--- NOTE | 2017-10-03 17:46 | Cat Scan Report ---
FINAL REPORT PROCEDURE: CT ABDOMEN PELVIS WO CON TECHNIQUE: Computerized axial tomography of the abdomen and pelvis was performed without intravenous contrast. This study is performed without intravascular contrast material and its sensitivity for abdominal and pelvic pathology, including neoplasms, inflammation, abscess, free fluid, thrombosis, arterial dissection and infarction, is reduced compared with a contrast enhanced study. HISTORY: ABDOMINAL PAIN/flank pain and hematuria COMPARISON: Prior CT scan abdomen and pelvis 09/03/2017 FINDINGS: Lower Lung valle: Portions of bilateral breast implants visualized. Lung bases are clear today. Upper Abdomen: The liver, gallbladder, unenhanced images of the pancreas and spleen are unremarkable. Kidneys, Ureters and Urinary bladder: There is a nonobstructing 3 millimeter calculus in the lower 3rd of the right kidney. The kidneys, the ureters and urinary bladder otherwise are unremarkable. Left adrenal gland is unremarkable. Oval low-density nodule right adrenal gland measuring 2.0 x 1.1 centimeter is unchanged. The appearance suggest a small adrenal adenoma. This has a density of approximately 3.4 Hounsfield units. Retroperitoneum: Abdominal aorta appears normal. Nonspecific subcentimeter lymph nodes are seen in the retroperitoneum. No pathologically enlarged lymph nodes are identified. Bowel: Peg tube in place as well as gastrostomy tube. These are unchanged compared to the prior study and appear to be in good position. Bowel loops otherwise unremarkable. No evidence of bowel obstruction ascites or free intraperitoneal gas. Normal-appearing appendix seen in the right lower quadrant. Reproductive organs: Uterus is surgically absent. No abnormal adnexal masses are seen. Other: No acute bony abnormalities are identified. IMPRESSION: Stable small nonobstructing calculus lower 3rd right kidney. Kidneys ureters and urinary bladder otherwise are unremarkable. Peg tube and percutaneous jejunal tube remain in place unchanged in appear to be good position.. Prior hysterectomy.
[2017-10-03] MEDS ORDERED: SUBLIMAZE IV ONE (19:00)
== END 2017-10-03 18:37 | disposition home or self-care (01) ==
LOC: ED 15:25
DX: N39.0 Urinary tract infection, site not specified (principal); R31.9 Hematuria, unspecified; E11.649 Type 2 diabetes mellitus with hypoglycemia without coma; Z88.6 Allergy status to analgesic agent; Z88.0 Allergy status to penicillin; Z88.8 Allergy status to other drugs, medicaments and biological substances
CPT/HCPCS: 36415; 74176; 80053; 81001; 83690; 85025; 96374; 96375; 99284; J2270; J2405; J3010; J7030

== ENCOUNTER 2017-10-19 20:26 | Emergency (ER) | payer SELFPAY ==
[2017-10-19 20:42] VITALS: BP 124/78
[2017-10-19] MEDS ORDERED: NACL 0.9% 500 ML 500 ML IV ONE (20:42)
--- NOTE | 2017-10-19 21:16 | XRay Report ---
FINAL REPORT PROCEDURE: XR CHEST 1V AP TECHNIQUE: Chest radiograph anteroposterior view. CPT 42831 HISTORY: possible Sepsis COMPARISON: Prior chest x-ray 09/02/2017 FINDINGS: There is subtle increased density overlying the lower lung field which represents artifact from bilateral breast implants. There is a PICC line entering from the right. The tip of the catheter projects in the mid SVC. Lungs are clear. No infiltrates masses or effusions are identified. Heart size and pulmonary vasculature appear normal. No acute bony abnormalities are identified. IMPRESSION: PICC line in place. No acute abnormality is seen.
[2017-10-19 21:58] LABS: Basophils % (Auto) 0.2 % (0.0-1.8); Hematocrit 38.4 % (30.3-42.9); Hemoglobin 12.6 gm/dl (10.1-14.3); Lymphocytes # (Auto) 3.5 K/mm3 (1.2-5.4); Mean Corpuscular HGB Conc 33 % (30-34); Mean Corpuscular Hemoglobin 30 pg (28-32); Mean Corpuscular Volume 90 fl (79-97); Monocytes # (Auto) 0.6 K/mm3 (0.0-0.8); Monocytes % (Auto) 6.2 % (0.0-7.3); Platelet Count 311 K/mm3 (140-440); Red Blood Count 4.27 M/mm3 (3.65-5.03); Red Cell Distribution Width 15.2 % (13.2-15.2)
[2017-10-19 22:06] LABS: INR 1.23 (0.87-1.13)
[2017-10-19 22:12] LABS: Alanine Aminotransferase 16 units/L (7-56); Albumin 4.7 g/dL (3.9-5); BUN/Creatinine Ratio 13; Blood Urea Nitrogen 10 mg/dL (7-17); Calcium 9.7 mg/dL (8.4-10.2); Hemolysis Index 12
[2017-10-19 22:50] LABS: Bacteria,Urine 4+ /HPF (Negative); Bilirubin,Urine NEG (Negative); Blood,Urine LG (Negative); Calcium Oxalate Crystals,Urine 2+; Color,Urine Yellow (Yellow); Mucus,Urine 3+ /HPF; RBC,Urine > 182.0 /HPF (0.0-6.0)
[2017-10-19] MEDS ORDERED: LEVAQUIN 750MG/150ML 750 MG/150 ML BAG IV ONE (23:33)
[2017-10-19] MEDS ORDERED: MORPHINE IV ONE (23:37)
[2017-10-19] MEDS ORDERED: NACL 0.9% 500 ML 500 ML ONE (23:50)
--- NOTE | 2017-10-20 00:04 | Emergency Department Report ---
HPI - General Chief Complaint: Abdominal Pain Time Seen by Provider: 10/19/17 23:19 - HPI HPI: 41-year-old female presents to the emergency department with a few different complaints. For the past 2 days the patient has had purulent drainage from the left chest wall where she used to have an [id number]. She complains of some abdominal pain around the area where she has a J-tube also with some small amount of purulent discharge coming from around it. And lastly , the patient has been dealing with 2 days of increased urinary frequency and seeing blood in the urine. This is associated with some low back pain. She says that she's been having some intermittent subjective fevers over the past few days. The patient was here at [facility] last month with sepsis secondary to a chest port infection that later caused an abscess. She has a past medical history of gastroparesis and gets TPN. Her primary care physician is Dr. Farias and her GI doc is Dr Brown in [place]. ED Past Medical Hx - Past Medical History Hx Diabetes: (hypoglycemia) Hx Deep Vein Thrombosis: No Additional medical history: Gastroparesis, Unable to eat or drink on TPN 18 hours a day and IVF 2 hours a day, REBEL Button, SEPSIS - Surgical History Hx Pacemaker: No Hx Internal Defibrillator: No Additional Surgical History: Infusaport left chest wall. G-tube(2016) and J- tube(2017), Hysterectomy. Breast augmentation, PICC line - Social History Smoking Status: Never Smoker Substance Use Type: None - Medications Home Medications: Home Medications Medication Instructions Recorded Confirmed Last Taken Type Acetaminophen/Codeine [Tylenol 1 tab PO Q6H PRN #12 tab 09/12/17 Unknown Rx /Codeine # 3 tab] Ondansetron [Zofran ODT TAB] 4 mg PO Q8HR PRN #10 tab.rapdis 09/12/17 Unknown Rx Acetaminophen/Codeine [Tylenol 1 tab PO Q6H PRN #14 tab 10/03/17 Unknown Rx /Codeine # 3 tab] Ciprofloxacin HCl [Ciprofloxacin 500 mg PO Q12H #14 tab 10/03/17 Unknown Rx TAB] Ondansetron [Zofran Odt] 4 mg PO Q8HR PRN #14 tab.rapdis 10/03/17 Unknown Rx HYDROcodone/APAP 5-325 [Anderson 1 each PO Q6HR PRN #12 tablet 10/20/17 Unknown Rx 5/325] Levofloxacin [Levaquin] 750 mg PO QDAY #7 tablet 10/20/17 Unknown Rx ED Review of Systems ROS: Stated complaint: POSS SEPSIS/BLOOD IN URINE/ABD PAIN Other details as noted in HPI Comment: All other systems reviewed and negative Constitutional: chills, fever Eyes: denies: eye pain, eye discharge, vision change ENT: denies: ear pain, throat pain Respiratory: denies: cough, shortness of breath Cardiovascular: denies: palpitations, edema Gastrointestinal: abdominal pain. denies: vomiting Genitourinary: urgency, hematuria Musculoskeletal: back pain. denies: joint swelling Skin: change in color. denies: pruritus Neurological: denies: headache, weakness, paresthesias Physical Exam - Physical Exam Vital Signs: Vital Signs 10/19/17 20:35 Temperature 98.1 F Pulse Rate 94 H Respiratory 18 Rate Blood Pressure 124/78 O2 Sat by Pulse 98 Oximetry Physical Exam: GENERAL: The patient is well-developed well-nourished. HENT: Normocephalic. Atraumatic. Patient has moist mucous membranes. EYES: Extraocular motions are intact. Pupils equal reactive to light bilaterally. NECK: Supple. Trachea is midline. CHEST/LUNGS: Clear to auscultation. There is no respiratory distress noted. There is some tenderness palpation to the left side of the chest with the patient had her previous port and has a small abscess. HEART/CARDIOVASCULAR: Regular. There is no tachycardia. There is no murmur. ABDOMEN: Abdomen is soft. There is some mild tenderness palpation around the J- tube. Patient has normal bowel sounds. SKIN: Skin is warm and dry. NEURO: The patient is awake, alert, and oriented. The patient is cooperative. The patient has no focal neurologic deficits. The patient has normal speech. MUSCULOSKELETAL: There is no tenderness or deformity. There is no limitation range of motion. There is no evidence of acute injury. ED Course Vital Signs 10/19/17 20:35 Temperature 98.1 F Pulse Rate 94 H Respiratory 18 Rate Blood Pressure 124/78 O2 Sat by Pulse 98 Oximetry - Consultations Consultation #1: 10/20/17 03:08 I spoke with the patient's infectious disease physician, Dr. Cole, who agrees that the patient appears safe for discharge home given that she is afebrile, without any leukocytosis, without any lactic acidosis or any other abnormal findings on the labs or imaging. She recommends the patient go back on Levaquin. ED Medical Decision Making - Lab Data Result diagrams: 10/19/17 21:25 10/19/17 21:25 - EKG Data -: EKG Interpreted by Me EKG shows normal: sinus rhythm, axis, intervals, QRS complexes, ST-T waves Rate: normal - EKG Data When compared to previous EKG there are: previous EKG unavailable Interpretation: normal EKG - Radiology Data Radiology results: report reviewed, image reviewed interpreted by me: Chest x-ray does not show any acute process. There are no pleural effusions, obvious pneumonia and there is no pneumothorax. EXAM: US Abdomen CLINICAL INDICATIONS: abd pain, concern for abscess near J-tube FINDINGS: Real-time ultrasound of the abdomen was performed. No evidence of abscess is seen around the jejunostomy tube. The visualized portion of pancreas appears mildly echogenic but is otherwise unremarkable. The liver appears normal in size and echotexture. The aorta proximally measures 1.5 cm which is normal. The inferior vena cava is patent. There is no evidence of gallstones or cholecystitis. The common duct measures 2.7 cm which is within normal limits. The spleen measures 9.6 cm which is normal. The right kidney measures 9.8 x 3.9 x 4.4 cm and the left kidney 9.5 x 5.9 x 4.8 cm. There is no evidence of hydronephrosis. IMPRESSION: NO ABSCESS IS SEEN AT THE JEJUNOSTOMY SITE Transcribed By: JOSE Dictated By: KENNETH KENNY MD Electronically Authenticated By: KENNETH KENNY MD Signed Date/Time: 10/20/17 0128 EXAM: CT CHEST W CON HISTORY: Abscess / infection at previous port site R chest TECHNIQUE: High-resolution helical axial images were obtained of the chest during intravenous administration of iodinated contrast. Images are reconstructed in the sagittal and coronal planes. PRIORS: It 09/06/2017 FINDINGS: There are bilateral breast prostheses. There is no evidence of subcutaneous abscess. There is a small area subcutaneous fat nodular thickening in the left anterior upper chest overlying the medial pectoralis muscle in the area of a previous abscess.. The heart and thoracic aorta appear normal. The lungs are clear. Images through the upper abdomen are unremarkable. The bones are unremarkable. IMPRESSION: 1. Small area subcutaneous thickening in area of previous Port-A- Cath abscess. This is most consistent with scar tissue. 2. Otherwise no acute findings in the chest Transcribed By: RICK Dictated By: ORTEGA TONG MD Electronically Authenticated By: ORTEGA TONG MD Signed Date/Time: 10/20/17 0130 - Medical Decision Making The patient came in complaining of some abdominal pain, hematuria, questionable infection around the G-tube and an infection/abscess to the left chest wall. The abdomen is soft. The G-tube appears to be functioning appropriately. There is no purulent drainage or any surrounding erythema. An abdominal ultrasound was done that did not show any signs of any abscess around the G- tube and also got a good look at the kidneys that did not show any hydronephrosis, signs of nephrolithiasis or any pyelonephritis. The patient's labs did show some hematuria without any significant urinary tract infection. Breasts the patient's labs were also unremarkable. There was no leukocytosis. No lactic acidosis. Normal electrolytes. Her vital signs were stable throughout her ED course including being afebrile. When examining the chest, the patient does have an area where she previously had a Port-A-Cath and an abscess where she still appears to have some collection of pus and/or infection. When she presses on the area it does express a malodorous cheesy caseous purulent substance. This area is tender to palpation. A CT scan of the chest with IV contrast was done that does not show any significant fluid collection at this time. The patient says that it appears to expand in the morning and she expresses the infection throughout the day. Given that the patient has normal vitals, negative imaging, mostly normal labs, and is feeling better, I feel that the patient is safe for discharge home at this time. As per the consultation section, I spoke with the infectious disease doctor who agrees that the patient does not require admission and agrees that the patient should be placed on antibiotics. She was given a dose of Levaquin here as this was one of the antibiotics that both her previous bloodstream and chest wall infections were susceptible to. She has been given a prescription for oral Levaquin to be used to her J-tube. In the meantime, a voicemail with the left forearm case management on Saturday to try and facilitate a change to IV antibiotics to go through the home health care and to be used in the patient's PICC. She has an appointment coming up with her infectious disease doctor. She was given a referral for urology regarding the hematuria. She was given a very small amount of pain medication. I did look her up on the [place] prescription monitoring system and she does have about 1 scheduled prescription per month over the past few months. However I have only given her a three-day supply and I feel it is appropriate given her conditions. The patient has been instructed to return to the emergency Department with any worsening of her symptoms or any acute distress. She understands and agrees to the plans. - Differential Diagnosis abscess, gastroparesis, colitis, cellulitis Critical Care Time: No Critical care attestation.: If time is entered above; I have spent that time in minutes in the direct care of this critically ill patient, excluding procedure time. ED Disposition Clinical Impression: Abscess of chest wall Abdominal pain Qualifiers: Abdominal location: unspecified location Qualified Code(s): R10.9 - Unspecified abdominal pain Hematuria Qualifiers: Hematuria type: gross Qualified Code(s): R31.0 - Gross hematuria Disposition: - TO HOME OR SELFCARE Is pt being admited?: No Condition: Stable Instructions: Acute Hematuria (ED), Abscess (ED), Abdominal Pain (ED) Additional Instructions: Please follow-up with your primary care physician and your infectious disease physician as soon as possible. I have also given a referral for a local urologist, Dr. Sanford, to follow up regarding the blood seen in the urine. Take the antibiotics as prescribed. We are trying to arrange for case management to contact you to set up IV antibiotics but you have been prescribed oral antibiotics in the meantime. Return to the emergency Department with any worsening of your symptoms or any acute distress. You have been prescribed a medication that is sedating and therefore should not be taken prior to driving, working, and responsible for children and in no way should be mixed with alcohol of any quantity. Prescriptions: HYDROcodone/APAP 5-325 [Anderson 5/325] 1 each PO Q6HR PRN #12 tablet PRN Reason: Pain Levofloxacin [Levaquin] 750 mg PO QDAY #7 tablet Referrals: LORETTA OCONNOR [Other] - JEFFERSON GREGORIO MD [Staff Physician] - KELLEY FANTASMA SANFORD MD [Staff Physician] - KELLEY Time of Disposition: 02:40
[2017-10-20] MEDS ORDERED: ZOFRAN ONE (00:09)
[2017-10-20] MEDS ORDERED: ZOFRAN IV ONE (00:10)
[2017-10-20 00:19] LABS: HCG Qualitative,Urine Negative (Negative)
[2017-10-20] MEDS ORDERED: DILAUDID ONE (01:13)
[2017-10-20] MEDS ORDERED: DILAUDID IV ONE (01:14)
--- NOTE | 2017-10-20 01:35 | Ultrasound Report ---
FINAL REPORT EXAM: US Abdomen CLINICAL INDICATIONS: abd pain, concern for abscess near J-tube FINDINGS: Real-time ultrasound of the abdomen was performed. No evidence of abscess is seen around the jejunostomy tube. The visualized portion of pancreas appears mildly echogenic but is otherwise unremarkable. The liver appears normal in size and echotexture. The aorta proximally measures 1.5 cm which is normal. The inferior vena cava is patent. There is no evidence of gallstones or cholecystitis. The common duct measures 2.7 cm which is within normal limits. The spleen measures 9.6 cm which is normal. The right kidney measures 9.8 x 3.9 x 4.4 cm and the left kidney 9.5 x 5.9 x 4.8 cm. There is no evidence of hydronephrosis. IMPRESSION: NO ABSCESS IS SEEN AT THE JEJUNOSTOMY SITE
--- NOTE | 2017-10-20 01:36 | Cat Scan Report ---
FINAL REPORT EXAM: CT CHEST W CON HISTORY: Abscess / infection at previous port site R chest TECHNIQUE: High-resolution helical axial images were obtained of the chest during intravenous administration of iodinated contrast. Images are reconstructed in the sagittal and coronal planes. PRIORS: It 09/06/2017 FINDINGS: There are bilateral breast prostheses. There is no evidence of subcutaneous abscess. There is a small area subcutaneous fat nodular thickening in the left anterior upper chest overlying the medial pectoralis muscle in the area of a previous abscess.. The heart and thoracic aorta appear normal. The lungs are clear. Images through the upper abdomen are unremarkable. The bones are unremarkable. IMPRESSION: 1. Small area subcutaneous thickening in area of previous Port-A-Cath abscess. This is most consistent with scar tissue. 2. Otherwise no acute findings in the chest
== END 2017-10-20 03:00 | disposition home or self-care (01) ==
LOC: ED 20:26
DX: R10.9 Unspecified abdominal pain (principal); L02.213 Cutaneous abscess of chest wall; R35.0 Frequency of micturition; R31.0 Gross hematuria; M54.5 Low back pain; E16.2 Hypoglycemia, unspecified; Z88.6 Allergy status to analgesic agent; Z88.8 Allergy status to other drugs, medicaments and biological substances; Z88.0 Allergy status to penicillin
CPT/HCPCS: 36415; 71045; 71260; 76700; 80053; 81001; 81025; 82140; 82805; 85025; 85610; 87040; 87076; 87086; 87116; 87186; 93005; 93010; 96365; 96366; 96375; 99285; J1170; J1956; J2270; J2405; J7040; Q9967

== ENCOUNTER 2017-12-28 13:41 | Emergency (ER) | payer SELFPAY ==
[2017-12-28] MEDS ORDERED: NACL 0.9% 1000 ML 1,000 ML IV ONE ×2 (14:30→17:46)
[2017-12-28 15:01] LABS: Basophils % (Auto) 0.2 % (0.0-1.8); Hemoglobin 12.3 gm/dl (10.1-14.3); Lymphocytes # (Auto) 2.5 K/mm3 (1.2-5.4); Lymphocytes % (Auto) 36.9 % (13.4-35.0); Mean Corpuscular HGB Conc 34 % (30-34); Mean Corpuscular Hemoglobin 31 pg (28-32); Mean Corpuscular Volume 90 fl (79-97); Monocytes # (Auto) 0.4 K/mm3 (0.0-0.8); Monocytes % (Auto) 5.7 % (0.0-7.3); Platelet Count 199 K/mm3 (140-440); Red Blood Count 3.98 M/mm3 (3.65-5.03)
[2017-12-28 15:33] LABS: Alanine Aminotransferase 8 units/L (7-56); Albumin 4.5 g/dL (3.9-5); BUN/Creatinine Ratio 14; Blood Urea Nitrogen 13 mg/dL (7-17); Calcium 9.5 mg/dL (8.4-10.2); Hemolysis Index 3
[2017-12-28] MEDS ORDERED: MORPHINE IV ONE ×2 (17:46→20:26)
[2017-12-28] MEDS ORDERED: ZOFRAN IV ONE (17:46)
--- NOTE | 2017-12-28 17:50 | Emergency Department Report ---
ED Abdominal Pain HPI - General Chief Complaint: Abdominal Pain Stated Complaint: VOMITING/STOMACH PAIN/PICC LINE Time Seen by Provider: 12/28/17 17:38 Source: patient Mode of arrival: Ambulatory Limitations: No Limitations - History of Present Illness Initial Comments: Patient is 42 years old female with history of chronic abdominal pain secondary to gastroparesis. Patient is on TPN 18 hours per day and 2 hours of IV fluids. Patient presented to the ER complaining of abdominal pain, crampy in nature associated with nausea vomiting and diarrhea. Patient stated that this is typical for her flare up. Patient denied any fever or urinary symptoms. MD Complaint: abdominal pain Location: diffuse Radiation: none Migration to: no migration Severity scale (0 -10): 6 Quality: cramping Consistency: intermittent - Related Data Previous Rx's Medication Instructions Recorded Last Taken Type Acetaminophen/Codeine [Tylenol 1 tab PO Q6H PRN #12 tab 09/12/17 Unknown Rx /Codeine # 3 tab] Ondansetron [Zofran ODT TAB] 4 mg PO Q8HR PRN #10 tab.rapdis 09/12/17 Unknown Rx Acetaminophen/Codeine [Tylenol 1 tab PO Q6H PRN #14 tab 10/03/17 Unknown Rx /Codeine # 3 tab] Ciprofloxacin HCl [Ciprofloxacin 500 mg PO Q12H #14 tab 10/03/17 Unknown Rx TAB] Ondansetron [Zofran Odt] 4 mg PO Q8HR PRN #14 tab.rapdis 10/03/17 Unknown Rx HYDROcodone/APAP 5-325 [Sanford 1 each PO Q6HR PRN #12 tablet 10/20/17 Unknown Rx 5/325] levoFLOXacin [Levaquin] 750 mg PO QDAY #7 tablet 10/20/17 Unknown Rx Acetaminophen/Codeine [Tylenol 1 tab PO Q6H PRN #14 tab 12/28/17 Unknown Rx /Codeine # 3 tab] Ondansetron [Zofran Odt] 4 mg PO Q8HR PRN #14 tab.rapdis 12/28/17 Unknown Rx Allergies Allergy/AdvReac Type Severity Reaction Status Date / Time ketorolac [From Toradol] Allergy Swelling Verified 01/08/17 15:10 metoclopramide [From Reglan] Allergy Unknown Verified 07/14/17 22:49 Penicillins Allergy Swelling Verified 01/08/17 15:09 prochlorperazine Allergy Unknown Verified 07/14/17 22:49 [From Compazine] promethazine [From Phenergan] Allergy Swelling Verified 01/08/17 15:10 tramadol Allergy Swelling Verified 01/08/17 15:10 adhesive tape AdvReac Itching Verified 09/04/17 10:45 ED Review of Systems ROS: Stated complaint: VOMITING/STOMACH PAIN/PICC LINE Other details as noted in HPI Comment: All other systems reviewed and negative Constitutional: denies: chills, fever Respiratory: denies: cough, orthopnea, shortness of breath, SOB with exertion Cardiovascular: denies: chest pain, palpitations, dyspnea on exertion Gastrointestinal: abdominal pain, nausea, vomiting, diarrhea. denies: constipation, hematemesis, melena, hematochezia Neurological: denies: headache, weakness, numbness, paresthesias, confusion, abnormal gait ED Past Medical Hx - Past Medical History Hx Diabetes: (hypoglycemia) Hx Deep Vein Thrombosis: No Additional medical history: Gastroparesis, Unable to eat or drink on TPN 18 hours a day and IVF 2 hours a day, REBEL Button, SEPSIS - Surgical History Past Surgical History?: Yes Hx Pacemaker: No Hx Internal Defibrillator: No Additional Surgical History: Infusaport left chest wall. G-tube(2016) and J- tube(2017), Hysterectomy. Breast augmentation, PICC line - Social History Smoking Status: Never Smoker Substance Use Type: None - Medications Home Medications: Home Medications Medication Instructions Recorded Confirmed Last Taken Type Acetaminophen/Codeine [Tylenol 1 tab PO Q6H PRN #12 tab 09/12/17 Unknown Rx /Codeine # 3 tab] Ondansetron [Zofran ODT TAB] 4 mg PO Q8HR PRN #10 tab.rapdis 09/12/17 Unknown Rx Acetaminophen/Codeine [Tylenol 1 tab PO Q6H PRN #14 tab 10/03/17 Unknown Rx /Codeine # 3 tab] Ciprofloxacin HCl [Ciprofloxacin 500 mg PO Q12H #14 tab 10/03/17 Unknown Rx TAB] Ondansetron [Zofran Odt] 4 mg PO Q8HR PRN #14 tab.rapdis 10/03/17 Unknown Rx HYDROcodone/APAP 5-325 [Sanford 1 each PO Q6HR PRN #12 tablet 10/20/17 Unknown Rx 5/325] levoFLOXacin [Levaquin] 750 mg PO QDAY #7 tablet 10/20/17 Unknown Rx Acetaminophen/Codeine [Tylenol 1 tab PO Q6H PRN #14 tab 12/28/17 Unknown Rx /Codeine # 3 tab] Ondansetron [Zofran Odt] 4 mg PO Q8HR PRN #14 tab.rapdis 12/28/17 Unknown Rx ED Physical Exam - General Limitations: No Limitations General appearance: alert, in no apparent distress - Head Head exam: Present: atraumatic, normocephalic - Eye Eye exam: Present: normal appearance, PERRL - ENT ENT exam: Present: normal exam, normal orophraynx, mucous membranes moist - Neck Neck exam: Present: normal inspection, full ROM. Absent: tenderness, meningismus, lymphadenopathy, thyromegaly - Respiratory Respiratory exam: Present: normal lung sounds bilaterally. Absent: respiratory distress, wheezes, rales, rhonchi, chest wall tenderness, accessory muscle use, decreased breath sounds, prolonged expiratory - Cardiovascular Cardiovascular Exam: Present: regular rate, normal rhythm, normal heart sounds - GI/Abdominal GI/Abdominal exam: Present: soft, normal bowel sounds, other (PEG tube in place) . Absent: distended, tenderness, rigid, organomegaly, mass, bruit, pulsatile mass - Extremities Exam Extremities exam: Present: normal inspection, full ROM, normal capillary refill. Absent: pedal edema, calf tenderness - Back Exam Back exam: Present: normal inspection, full ROM. Absent: tenderness, CVA tenderness (R), CVA tenderness (L), muscle spasm, paraspinal tenderness, vertebral tenderness, rash noted - Neurological Exam Neurological exam: Present: alert, oriented X3, CN II-XII intact, normal gait, reflexes normal - Skin Skin exam: Present: warm, intact, normal color ED Course Vital Signs 12/28/17 14:24 Temperature 98.6 F Pulse Rate 94 H Respiratory 16 Rate Blood Pressure 110/71 O2 Sat by Pulse 99 Oximetry ED Medical Decision Making - Lab Data Result diagrams: 12/28/17 14:52 12/28/17 14:52 - Radiology Data Radiology results: report reviewed Acute abdomen series is negative for acute finding. - Medical Decision Making Patient is 42 years old female with history of chronic abdominal pain secondary to gastroparesis. Patient is on TPN 18 hours per day and 2 hours of IV fluids. Patient presented to the ER complaining of abdominal pain, crampy in nature associated with nausea vomiting and diarrhea. Patient stated that this is typical for her flare up. Patient denied any fever or urinary symptoms. Patient stated that she is feeling much better. I advised the patient to follow -up with her primary care physician in the next 2-3 days and to return to the ER if her symptoms are not improving. Critical care attestation.: If time is entered above; I have spent that time in minutes in the direct care of this critically ill patient, excluding procedure time. ED Disposition Clinical Impression: Gastroparesis, Abdominal pain Disposition: TO HOME OR SELFCARE Is pt being admited?: No Condition: Stable Instructions: Abdominal Pain (ED) Prescriptions: Acetaminophen/Codeine [Tylenol /Codeine # 3 tab] 1 tab PO Q6H PRN #14 tab PRN Reason: Pain Ondansetron [Zofran Odt] 4 mg PO Q8HR PRN #14 tab.rapdis PRN Reason: Nausea And Vomiting Referrals: PRIMARY CARE,MD [Primary Care Provider] - 3-5 Days
[2017-12-28] MEDS ORDERED: FLUSH HEPARIN IV ONE (17:59)
--- NOTE | 2017-12-28 18:40 | XRay Report ---
FINAL REPORT EXAM: XR ABD SERIES W CXR 1V HISTORY: abdominal pain TECHNIQUE: Frontal view of the chest and frontal views of the abdomen and pelvis Comparison: X-ray chest dated October 19, [address] abdomen and pelvis dated October 03, 2017 FINDINGS: Chest x-ray: There is no evidence of infiltrate, pneumothorax or pleural fluid collection. The cardiomediastinal silhouette is normal in appearance. The bony structures are unremarkable. A right-sided PICC line is demonstrated with the tip projected in the region of the superior vena cava.. X-ray abdomen and pelvis: The bowel gas pattern is nonobstructive with air in nondistended loops of small bowel and colon. There is no definite evidence of pneumoperitoneum. An enterostomy tube is projected over the left abdomen. Surgical clips are demonstrated in the upper abdomen. The bony structures are unremarkable. IMPRESSION: 1. No evidence of an acute pulmonary process. 2. Right-sided PICC line. 3. Nonobstructive bowel gas pattern. 4. Enterostomy tube projected over the left abdomen.
[2017-12-28] MEDS ORDERED: SUBLIMAZE IV ONE ×2 (19:35→21:00)
[2017-12-28] MEDS ORDERED: MORPHINE ONE (20:20)
[2017-12-28 20:29] VITALS: BP 108/65
== END 2017-12-28 21:00 | disposition home or self-care (01) ==
LOC: ED 13:41
DX: E11.43 Type 2 diabetes mellitus with diabetic autonomic (poly)neuropathy (principal); K31.84 Gastroparesis; Z90.710 Acquired absence of both cervix and uterus
CPT/HCPCS: 36415; 74022; 80053; 85025; 96361; 96374; 96375; 96376; 99284; J1642; J2270; J2405; J7030; J3010

== ENCOUNTER 2018-04-03 15:36 | Emergency (ER) | payer MEDICAID, OTHER ==
[2018-04-03] MEDS ORDERED: CATHFLO IV ONE (19:39)
[2018-04-03] MEDS ORDERED: NORCO 10/325 PO ONE ×2 (20:38→22:00)
[2018-04-03] MEDS ORDERED: MORPHINE IM ONE (20:42)
--- NOTE | 2018-04-03 21:39 | Emergency Department Report ---
ED General Adult HPI - General Chief complaint: Medical Clearance Stated complaint: RAMIREZ LINE/NO BLOOD RETURN Time Seen by Provider: 04/03/18 19:29 Source: patient Mode of arrival: Ambulatory Limitations: No Limitations - History of Present Illness Initial comments: This is a 42-year-old female nontoxic, well nourished in appearance, no acute signs of distress presents to the ED with c/o of Hitman catheter clogged. Patient stated a Ramirez catheter has been placed by Dr. Fallon to the right chest and has not been properly working 1 day. Patient today she has good flush but does not have any back return. Patient also stated has some irritation to the site. Patient denies any trauma. She does have a nurse that comes and helps her with a Ramirez catheter. Patient currently takes TPN daily. He stated that she didn't take her TPN today. Patient denies any other symptoms. Denies any chest pain, shortness of breath, fever, chills, nausea, vomiting, headache or stiff neck. -: This morning Severity scale (0 -10): 0 Improves with: none Worsens with: none Associated Symptoms: denies other symptoms. denies: confusion, chest pain, cough, diaphoresis, fever/chills, headaches, loss of appetite, malaise, nausea/ vomiting, rash, seizure, shortness of breath, syncope, weakness Treatments Prior to Arrival: none - Related Data Home Medications Medication Instructions Recorded Confirmed Last Taken Acetaminophen/Codeine [Tylenol 12 mg PO Q6H PRN 03/04/18 Unknown /Codeine # 3 tab] Morphine Sulfate/0.9% NaCl/Pf 2 mg IV Q4H PRN 03/04/18 03/04/18 Unknown [Morphine 2 mg/ml-0.9% NaCl Syr] Ondansetron [Zofran ODT TAB] 4 mg PO Q4HR PRN 03/04/18 03/04/18 Unknown Previous Rx's Medication Instructions Recorded Last Taken Type Apixaban [Eliquis] 5 mg PO BID #70 tablet 02/11/18 03/04/18 23:50 Rx Acetaminophen/Codeine [Tylenol 1 tab PO Q6H PRN #12 tab 04/03/18 Unknown Rx /Codeine # 3 tab] Clindamycin [Clindamycin CAP] 300 mg PO Q8H #21 cap 04/03/18 Unknown Rx Allergies Allergy/AdvReac Type Severity Reaction Status Date / Time ketorolac [From Toradol] Allergy Swelling Verified 02/11/18 20:10 metoclopramide [From Reglan] Allergy Unknown Verified 02/11/18 20:10 Penicillins Allergy Swelling Verified 02/11/18 20:10 prochlorperazine Allergy Unknown Verified 02/11/18 20:10 [From Compazine] promethazine [From Phenergan] Allergy Swelling Verified 02/11/18 20:10 tramadol Allergy Swelling Verified 02/11/18 20:10 adhesive tape AdvReac Itching Verified 02/11/18 20:10 ED Review of Systems ROS: Stated complaint: RAMIREZ LINE/NO BLOOD RETURN Other details as noted in HPI Constitutional: denies: chills, fever Eyes: denies: eye pain, eye discharge, vision change ENT: denies: ear pain, throat pain Respiratory: denies: cough, shortness of breath, wheezing Cardiovascular: denies: chest pain, palpitations Endocrine: no symptoms reported Gastrointestinal: denies: abdominal pain, nausea, diarrhea Genitourinary: denies: urgency, dysuria, discharge Musculoskeletal: denies: back pain, joint swelling, arthralgia Skin: denies: rash, lesions Neurological: denies: headache, weakness, paresthesias Psychiatric: denies: anxiety, depression Hematological/Lymphatic: denies: easy bleeding, easy bruising ED Past Medical Hx - Past Medical History Hx Diabetes: Yes (type II) Hx Deep Vein Thrombosis: Yes (R AXILLARY VEIN) Hx GERD: Yes Additional medical history: Gastroparesis, Unable to eat or drink on TPN 18 hours a day and IVF 2 hours a day, REBEL Button, SEPSIS. hypoglycemia - Surgical History Past Surgical History?: Yes Hx Pacemaker: No Hx Internal Defibrillator: No Hx Breast Surgery: (yes, augmentation) Additional Surgical History: Infusaport left chest wall. G-tube(2015) and J- tube(2017), Hysterectomy. Breast augmentation, PICC line - Social History Smoking Status: Never Smoker Substance Use Type: None - Medications Home Medications: Home Medications Medication Instructions Recorded Confirmed Last Taken Type Apixaban [Eliquis] 5 mg PO BID #70 tablet 02/11/18 03/04/18 03/04/18 23:50 Rx Acetaminophen/Codeine [Tylenol 12 mg PO Q6H PRN 03/04/18 Unknown History /Codeine # 3 tab] Morphine Sulfate/0.9% NaCl/Pf 2 mg IV Q4H PRN 03/04/18 03/04/18 Unknown History [Morphine 2 mg/ml-0.9% NaCl Syr] Ondansetron [Zofran ODT TAB] 4 mg PO Q4HR PRN 03/04/18 03/04/18 Unknown History Acetaminophen/Codeine [Tylenol 1 tab PO Q6H PRN #12 tab 04/03/18 Unknown Rx /Codeine # 3 tab] Clindamycin [Clindamycin CAP] 300 mg PO Q8H #21 cap 04/03/18 Unknown Rx ED Physical Exam - General Limitations: No Limitations General appearance: alert, in no apparent distress - Head Head exam: Present: atraumatic, normocephalic - Eye Eye exam: Present: normal appearance - Neck Neck exam: Present: normal inspection, full ROM - Cardiovascular Cardiovascular Exam: Present: regular rate, normal rhythm, normal heart sounds. Absent: systolic murmur, diastolic murmur, rubs, gallop - Extremities Exam Extremities exam: Present: normal inspection, full ROM - Back Exam Back exam: Present: normal inspection, full ROM - Neurological Exam Neurological exam: Present: alert, oriented X3 - Psychiatric Psychiatric exam: Present: normal affect, normal mood - Skin Skin exam: Present: warm, dry, intact, normal color. Absent: rash - Other Other exam information: Hitman catheter with a dressing to right chest. There is some redness in that area. No signs of abscess or swelling. ED Course Vital Signs 04/03/18 15:42 Temperature 97.8 F Pulse Rate 95 H Respiratory 18 Rate Blood Pressure 130/79 O2 Sat by Pulse 99 Oximetry - Reevaluation(s) Reevaluation #1: 04/03/18 21:40 Patient is speaking in full sentences with no signs of distress noted. - Consultations Consultation #1: 04/03/18 21:40 Patient has been consulted with Dr. Israel (vascular surgery) paperhanger contractor for Dr. Fallon about patient history, physical exam, and stated patient can be discharged with NPO at midnight and to come in tomorrow morning at 9 AM to outpatient preop surgery for a possible procedure tomorrow. ED Medical Decision Making - Medical Decision Making This is a 42-year-old female that presents with cellulitis and Hitman line clogged. Patient is stable and was examined by me. 2 mL of Flow has been place d and after 30 minutes the catheter can be flushed but there was still no back return. I initially wanted the patient to stay and be admitted for a possible procedure tomorrow for a new catheter to be placed the patient stated that she has to leave due to her child not feeling well. I instructed and educated patient my concerns but she still stated she has to leave. I still consulted vascular surgeon on-call for Dr. Fallon which was Dr. Israel and he stated that patient can be discharged and to come tomorrow morning at 9 AM for a procedure and to be nothing by mouth after midnight. Wound dressing has been done by RN. I will discharge patient with some clindamycin and Tylenol with codeine for pain that placed through the feeding tube. Patient was referred to Follow-up with a primary care doctor in 3-5 days or if symptoms worsen and continue return to emergency room as soon as possible. At time of discharge, the patient does not seem toxic or ill in appearance. No acute signs of distress noted. Patient agrees to discharge treatment plan of care. No further questions noted by the patient. Critical care attestation.: If time is entered above; I have spent that time in minutes in the direct care of this critically ill patient, excluding procedure time. ED Disposition Clinical Impression: Ramirez catheter dysfunction Qualifiers: Encounter type: initial encounter Qualified Code(s): T82.514A - Breakdown (mechanical) of infusion catheter, initial encounter Cellulitis Qualifiers: Site of cellulitis: other site Qualified Code(s): L03.818 - Cellulitis of other sites Disposition: DC-01 TO HOME OR SELFCARE Is pt being admited?: No Does the pt Need Aspirin: No Condition: Stable Instructions: Acetaminophen/Codeine (By mouth), Cellulitis (ED) Additional Instructions: Follow-up with a primary care doctor in 3-5 days or if symptoms worsen and continue return to emergency room as soon as possible. Do not operate any machinery while taking Tylenol with codeine as this may cause drowsiness. As discussed with you, do not eat or drink after midnight 12 AM. Return to outpatient procedure Center at 9 AM tomorrow morning. Prescriptions: Acetaminophen/Codeine [Tylenol /Codeine # 3 tab] 1 tab PO Q6H PRN #12 tab PRN Reason: Pain , Severe (7-10) Clindamycin [Clindamycin CAP] 300 mg PO Q8H #21 cap Referrals: PRIMARY CARE, [Primary Care Provider] - 3-5 Days AUSTIN LEY MD [Staff Physician] - 3-5 Days [facility] [Outside] - 3-5 Days [facility] [Outside] - 3-5 Days
[2018-04-03 22:07] VITALS: BP 136/72
== END 2018-04-03 22:04 | disposition home or self-care (01) ==
LOC: ED 15:36
DX: T82.514A Breakdown (mechanical) of infusion catheter, initial encounter (principal); L03.818 Cellulitis of other sites; E11.9 Type 2 diabetes mellitus without complications; K21.9 Gastro-esophageal reflux disease without esophagitis; Z90.710 Acquired absence of both cervix and uterus; Z86.718 Personal history of other venous thrombosis and embolism; Z88.6 Allergy status to analgesic agent; Z88.0 Allergy status to penicillin; Z88.8 Allergy status to other drugs, medicaments and biological substances; Z91.048 Other nonmedicinal substance allergy status; Y92.89 Other specified places as the place of occurrence of the external cause; Y84.6 Urinary catheterization as the cause of abnormal reaction of the patient, or of later complication, without mention of misadventure at the time of the procedure
CPT/HCPCS: 96372; 96374; 99282; J2270; J2997

== ENCOUNTER 2018-04-04 09:09 | Day surgery (SDC) | payer MEDICAID ==
[2018-04-04 09:44] LABS: Basophils % (Auto) 0.3 % (0.0-1.8); Hematocrit 36.4 % (30.3-42.9); Hemoglobin 12.1 gm/dl (10.1-14.3); Lymphocytes # (Auto) 1.6 K/mm3 (1.2-5.4); Lymphocytes % (Auto) 28.1 % (13.4-35.0); Mean Corpuscular HGB Conc 33 % (30-34); Mean Corpuscular Volume 91 fl (79-97); Monocytes # (Auto) 0.5 K/mm3 (0.0-0.8); Platelet Count 229 K/mm3 (140-440); Red Blood Count 3.99 M/mm3 (3.65-5.03); Red Cell Distribution Width 14.1 % (13.2-15.2)
[2018-04-04 09:53] LABS: INR 0.87 (0.87-1.13)
[2018-04-04 09:54] LABS: Partial Thromboplastin Time 26.7 Sec. (24.2-36.6)
[2018-04-04] MEDS ORDERED: NACL 0.9% 1000 ML 1,000 ML IV SCH (10:00)
[2018-04-04 11:12] LABS: BUN/Creatinine Ratio 15; Blood Urea Nitrogen 12 mg/dL (7-17); Calcium 8.9 mg/dL (8.4-10.2); Hemolysis Index 39
[2018-04-04] MEDS ORDERED: D50W (25GM) Syringe IV ONE (11:51)
[2018-04-04] MEDS ORDERED: DIPRIVAN 10 MG/ML IV ONE ×2 (12:30)
[2018-04-04] MEDS ORDERED: SUBLIMAZE ONE (12:42)
[2018-04-04] MEDS ORDERED: ZOFRAN ONE (13:23)
--- NOTE | 2018-04-04 13:24 | Vascular Lab Report ---
FINAL REPORT EXAM: VL GUIDE VASCULAR ACCESS HISTORY: Assess neck and chest veins TECHNIQUE: Sonography of PRIORS: None. FINDINGS: Internal jugular vein is patent and measures 8 mm AP diameter at the level of the thyroid. Catheter s een at the subclavian/IJ junction. There is no venous thrombus identified. Ramirez port identified guajardo bcutaneously. No abnormal hyperemia Doppler. No abnormal fluid collections seen. IMPRESSION: Visualized patent the vein. The visualize catheter port is unremarkable.
--- NOTE | 2018-04-04 13:26 | Anesthesia Day of Surgery ---
Anesthesia Day of Surgery - Day of Surgery Patient Examined: Yes Patient H&P Reviewed: Yes Patient is NPO: Yes
--- NOTE | 2018-04-04 13:26 | Anesthesia Consultation ---
Anesthesia Consult and Med Hx Date of service: 04/04/18 - Airway Anesthetic Teeth Evaluation: Good ROM Head & Neck: Adequate Mental/Hyoid Distance: Adequate Mallampati Class: Class II Intubation Access Assessment: Probably Good - Pre-Operative Health Status ASA Pre-Surgery Classification: ASA2 Proposed Anesthetic Plan: MAC - Pulmonary Hx Smoking: No Hx Pneumonia: No - Cardiovascular System Hx Pacemaker: No Hx Internal Defibrillator: No Hx Peripheral Vascular Disease: Yes (right upper arm vein thrombosis s/p PICC line) - Central Nervous System Hx Psychiatric Problems: Yes (anxiety) - Gastrointestinal Hx Gastroesophageal Reflux Disease: No (G-tube and J-tube in-situ for gastroparesis) - Endocrine Hx Non-Insulin Dependent Diabetes: Yes - Other Systems Hx Cancer: No
[2018-04-04] MEDS ORDERED: XYLOCAINE 2% INFILTRATI ONE (13:34)
[2018-04-04] MEDS ORDERED: HEPARIN/NS 5000 UNIT/500ML(CATH LAB) 500 ML IR ONE (13:46)
[2018-04-04] MEDS ORDERED: HEPARIN 10,000 UNITS/10 ML ONE (13:46)
[2018-04-04] MEDS: XYLOCAINE 2% INFILTRATI ONE ×3 (13:58→14:29)
[2018-04-04] MEDS ORDERED: VANCOMYCIN/NS 1 GM/250 ML 1 GM/250 ML BAG IV NR (14:00)
[2018-04-04] MEDS ORDERED: XYLOCAINE 1%/ EPI 1:100,000 INFILTRATI ONE (14:33)
--- NOTE | 2018-04-04 14:57 | Short Stay Summary ---
Short Stay Documentation Date of service: 04/04/18 Narrative H&P: 42 year old female with multiple TPN catheters who presents with TPN catheter malfunction requiring TPN catheter placement and old catheter removal - History Principal diagnosis: TPN catheter malfunction, diabetic gastroparesis Past Medical History: other (gastroparesis) - Allergies and Medications Current Medications: Allergies ketorolac [From Toradol] Allergy (Verified 02/11/18 20:10) Swelling metoclopramide [From Reglan] Allergy (Verified 02/11/18 20:10) Unknown Penicillins Allergy (Verified 02/11/18 20:10) Swelling prochlorperazine [From Compazine] Allergy (Verified 02/11/18 20:10) Unknown promethazine [From Phenergan] Allergy (Verified 02/11/18 20:10) Swelling tramadol Allergy (Verified 02/11/18 20:10) Swelling adhesive tape Adverse Reaction (Verified 02/11/18 20:10) Itching Home Medications Medication Instructions Recorded Confirmed Last Taken Type Ondansetron [Zofran ODT TAB] 4 mg PO Q4HR PRN 03/04/18 04/04/18 04/03/18 History 4mg Clindamycin [Clindamycin CAP] 300 mg PO Q8H #21 cap 04/03/18 04/04/18 04/03/18 Rx 300mg Active Medications Sodium Chloride (Nacl 0.9% 1000 Ml) 1,000 mls @ 42 mls/hr IV DIRECT HERI Last Admin: 04/04/18 10:14 Dose: 42 mls/hr Documented by: Vancomycin HCl (Vancomycin/Ns 1 Gm/250 Ml) 1 gm in 250 mls @ 167.007 mls/hr IV PREOP NR; Protocol Stop: 04/04/18 23:59 - Physical exam General appearance: no acute distress Lungs: Normal air movement Gastrointestinal: other (J tubes with leakage, injected 1.5 mL more saline in each tube balloon to help prevent leakage) Extremities: normal temperature, normal color - Brief post op/procedure progress note Date of procedure: 04/04/18 Pre-op diagnosis: TPN catheter malfunction Post-op diagnosis: other (TPN catheter malfunction, SVC stenosis) Procedure: Hodeg catheter placement SVC venography and angioplasty Old hodge catheter removal Anesthesia: local (w/ conscious sedation) Surgeon: MAURICIO SOTO Estimated blood loss: minimal Condition: stable - Hospital course Hospital course: Having hyperalgesia at the neck catheter insertion site, which is expected for this patient after discussing the situation with her prior interventionalist. No issues otherwise. - Disposition Condition at discharge: Stable Disposition: DC-01 TO HOME OR SELFCARE Short Stay Discharge Plan Activity: advance as tolerated Weight Bearing Status: Weight Bear as Tolerated Diet: advance as tolerated Wound: keep clean and dry, other (do not get catheter site wet) Follow up with: PRIMARY CARE, [Primary Care Provider] - 7 Days
[2018-04-04] MEDS ORDERED: DILAUDID ONE ×2 (14:59→15:30)
--- NOTE | 2018-04-04 15:07 | Operative Report ---
Operative Report Operative Report: EXAM: 1. Ultrasound guided access of the right internal jugular vein. 2. SVC venography. 3. Angioplasty of the SVC with a 12 mm angioplasty balloon. 4. Fluoroscopic guided removal of the old single lumen Hodge catheter. 5. Fluoroscopic-guided placement of a new single-lumen Hodge catheter DATE: 04/04/18 JAVA PROGRAMMER: MAURICIO SOTO MD INDICATION: 42-year-old female with chronic gastro-paresis requiring TPN. The patient's TPN catheter is malfunctioning and she requires TPN catheter removal and a new Hodge catheter. MEDICATIONS: Please see nursing report for full details. DEVICES: Single-lumen Hodge catheter, new site placement Single-lumen Hodge catheter, removed CONTRAST: Please see ballistics laboratory gunsmith report for full details PROCEDURE: Anesthesia was present for the procedure to the patient's difficulty to sedate. She also has chronic pain issues. The right neck and chest were prepped and draped in a sterile fashion. Ultrasound was used for evaluation of the internal jugular vein which was patent. Under direct ultrasound guidance, the right internal jugular vein was accessed above the existing Hodge catheter with a 21-gauge micropuncture needle. 0.018 inch wire was passed into the SVC. After manipulation, the wire was ultimately passed into the IVC. Needle was exchanged for transitional dilator. Wire was exchanged for 0.035 inch wire passed into the SVC. The wire did not pass into the IVC and there was a stenosis in the mid SVC. Transitional dilator was exchanged for a 5 Chinese sheath and digital subtraction angiography was performed demonstrating severe 90% narrowing of the mid SVC. Sheath was then upsized to an 8 Chinese sheath. Glidewire and catheter were used to negotiate past the narrowing into the IVC. Wire was exchanged for a stiff wire. In order to resolve her underlying issue of hodge catheter malfunction, a new catheter would need to be placed and the SVC narrowing would need to be addressed to prevent future hodge malfunction and to allow placement of a new catheter. 12 mm angioplasty balloon was then used to perform angioplasty of the mid SVC at burst pressure. The old Hodge catheter was dissected free and retracted above the narrowing during angioplasty. Digital subtraction angiography was performed demonstrating 40% residual narrowing. The old Hodge catheter was then completely removed. A suitable exit site was identified on the patient's chest inferior and lateral to the venotomy. The site was anesthetized with local anesthetic and the track was anesthetized. Dermatotomy was made. The 9.6 Chinese single lumen Hodge catheter was tunneled between the dermatotomy to the venotomy with the assistance of the tunneler. Over 0.035 inch wire, the transitional dilator was exchanged for a 10 Chinese peel-away sheath. The catheter was cut to appropriate size. Wire and introducer were removed. The catheter was advanced through the peel-away sheath under suspended respirations and positioned centrally under fluoroscopic guidance. The peel-away sheath was removed. Excellent flow was obtained through the single lumen tunneled catheter. The catheter tip is in the right atrium. 4-0 Vicryl suture was used to close the venotomy and Dermabond was then applied. 3-0 Ethilon suture was used to secure the catheter at the dermatotomy. The catheter was charged with heparin 200 units/mL space. Sterile dressing applied. The patient was transferred from the angiography suite back to the floor in sta ble condition. FINDINGS: Please see procedure note above. IMPRESSION: 1. Successful ultrasound and fluoroscopically guided placement of a right internal jugular tunneled cuffed single-lumen Hodge catheter. 2. Successful fluoroscopic guided removal of the right internal jugular Hodge catheter. 3. Successful angiography of the SVC with angioplasty of the SVC.
[2018-04-04] MEDS ORDERED: NORCO 5/325 PO PRN (15:18)
[2018-04-04] MEDS ORDERED: DILAUDID IV ONE (15:30)
[2018-04-04 16:16] VITALS: BP 126/78
== END 2018-04-04 16:32 | disposition home or self-care (01) ==
LOC: CATHLABREC 09:09
PROVIDERS: ATTEND Radiology Diagnostic Radiology
DX: I87.1 Compression of vein (principal); T82.514A Breakdown (mechanical) of infusion catheter, initial encounter; K21.9 Gastro-esophageal reflux disease without esophagitis; F41.9 Anxiety disorder, unspecified; E11.9 Type 2 diabetes mellitus without complications; Z79.899 Other long term (current) drug therapy; Z79.01 Long term (current) use of anticoagulants; Z88.5 Allergy status to narcotic agent; Z88.0 Allergy status to penicillin; Z88.8 Allergy status to other drugs, medicaments and biological substances; Z91.09 Other allergy status, other than to drugs and biological substances; Z90.710 Acquired absence of both cervix and uterus; Z86.718 Personal history of other venous thrombosis and embolism; Z98.890 Other specified postprocedural states; Y83.1 Surgical operation with implant of artificial internal device as the cause of abnormal reaction of the patient, or of later complication, without mention of misadventure at the time of the procedure; Z80.9 Family history of malignant neoplasm, unspecified; Z83.3 Family history of diabetes mellitus
CPT/HCPCS: 36415; 36558; 36589; 37248; 75827; 76937; 77001; 80048; 82962; 85025; 85610; 85730; 96374; 96375; C1725; C1751; C1752; C1769; C1894; J1170; J1644; J2405; J2704; J3010; J3370; J7030; Q9967

== ENCOUNTER 2018-04-13 14:56 | Inpatient (IN) | payer MEDICAID, OTHER ==
[2018-04-13] MEDS ORDERED: DILAUDID IV ONE (15:30)
[2018-04-13] MEDS ORDERED: MORPHINE IV ONE (16:20)
[2018-04-13] MEDS ORDERED: MORPHINE ONE (16:51)
[2018-04-13] MEDS ORDERED: ZOFRAN IV ONE (17:16)
[2018-04-13 18:00] LABS: Basophils # (Auto) 0.2 K/mm3 (0.0-0.1); Eosinophils % (Auto) 0.1 % (0.0-4.3); Hematocrit 37.7 % (30.3-42.9); Hemoglobin 12.3 gm/dl (10.1-14.3); Lymphocytes # (Auto) 1.5 K/mm3 (1.2-5.4); Lymphocytes % (Auto) 24.9 % (13.4-35.0); Mean Corpuscular HGB Conc 33 % (30-34); Mean Corpuscular Volume 92 fl (79-97); Monocytes # (Auto) 0.3 K/mm3 (0.0-0.8); Monocytes % (Auto) 5.2 % (0.0-7.3); Platelet Count 235 K/mm3 (140-440); Red Cell Distribution Width 13.9 % (13.2-15.2)
--- NOTE | 2018-04-13 18:10 | Emergency Department Report ---
ED General Adult HPI - General Chief complaint: Pain General Stated complaint: UNABLE TO REINSERT FEEDING TUB Time Seen by Provider: 04/13/18 15:18 Source: patient Mode of arrival: Ambulatory Limitations: No Limitations - History of Present Illness Initial comments: This is a 42-year-old female nontoxic, well nourished in appearance, no acute signs of distress presents to the ED with c/o of unable to place g-tube. Patient stated she has G-tube for about 3 years now and changes it every 6 months. Patient stated that 1 hour prior to coming to the ED her was changing her g-tube and was not able to instruct it back. Patient denies any trauma. Patient denies swelling, pus, drainage, fever, chills, nausea, vomiting, chest pain, shortness of breathe. PMH includes gastroparesis. -: This afternoon Severity scale (0 -10): 8 Quality: aching Consistency: constant Improves with: none Worsens with: none Associated Symptoms: denies: confusion, chest pain, cough, diaphoresis, fever/chills, headaches, loss of appetite, malaise, nausea/vomiting, rash, seizure, shortness of breath, syncope, weakness Treatments Prior to Arrival: none - Related Data Home Medications Medication Instructions Recorded Confirmed Last Taken Ondansetron [Zofran ODT TAB] 4 mg PO Q4HR PRN 03/04/18 04/04/18 04/03/18 4mg Previous Rx's Medication Instructions Recorded Last Taken Type Clindamycin [Clindamycin CAP] 300 mg PO Q8H #21 cap 04/03/18 04/03/18 Rx 300mg HYDROcodone/APAP 5-325 [[place] 1 each PO Q6HR PRN #20 tablet 04/04/18 Unknown Rx 5/325] Allergies Allergy/AdvReac Type Severity Reaction Status Date / Time ketorolac [From Toradol] Allergy Swelling Verified 02/11/18 20:10 metoclopramide [From Reglan] Allergy Unknown Verified 02/11/18 20:10 Penicillins Allergy Swelling Verified 02/11/18 20:10 prochlorperazine Allergy Unknown Verified 02/11/18 20:10 [From Compazine] promethazine [From Phenergan] Allergy Swelling Verified 02/11/18 20:10 tramadol Allergy Swelling Verified 02/11/18 20:10 adhesive tape AdvReac Itching Verified 02/11/18 20:10 ED Review of Systems ROS: Stated complaint: UNABLE TO REINSERT FEEDING TUB Other details as noted in HPI Constitutional: denies: chills, fever Eyes: denies: eye pain, eye discharge, vision change ENT: denies: ear pain, throat pain Respiratory: denies: cough, shortness of breath, wheezing Cardiovascular: denies: chest pain, palpitations Endocrine: no symptoms reported Gastrointestinal: denies: abdominal pain, nausea, diarrhea Genitourinary: denies: urgency, dysuria, discharge Musculoskeletal: denies: back pain, joint swelling, arthralgia Skin: denies: rash, lesions Neurological: denies: headache, weakness, paresthesias Psychiatric: denies: anxiety, depression Hematological/Lymphatic: denies: easy bleeding, easy bruising ED Past Medical Hx - Past Medical History Hx Diabetes: Yes (type II) Hx Deep Vein Thrombosis: Yes (R AXILLARY VEIN) Hx GERD: Yes Additional medical history: Gastroparesis, Unable to eat or drink on TPN 18 hours a day and IVF 2 hours a day, REBEL Button, SEPSIS. hypoglycemia////G-tube and J-tube - Surgical History Hx Pacemaker: No Hx Internal Defibrillator: No Hx Breast Surgery: (yes, augmentation) Additional Surgical History: Infusaport left chest wall. G-tube(2016) and J- tube(2017), Hysterectomy. Breast augmentation, PICC line - Social History Smoking Status: Never Smoker Substance Use Type: None - Medications Home Medications: Home Medications Medication Instructions Recorded Confirmed Last Taken Type Ondansetron [Zofran ODT TAB] 4 mg PO Q4HR PRN 03/04/18 04/04/18 04/03/18 History 4mg Clindamycin [Clindamycin CAP] 300 mg PO Q8H #21 cap 04/03/18 04/04/18 04/03/18 Rx 300mg HYDROcodone/APAP 5-325 [[place] 1 each PO Q6HR PRN #20 tablet 04/04/18 Unknown Rx 5/325] ED Physical Exam - General Limitations: No Limitations General appearance: alert, in no apparent distress - Head Head exam: Present: atraumatic, normocephalic - Eye Eye exam: Present: normal appearance - Neck Neck exam: Present: normal inspection, full ROM - GI/Abdominal GI/Abdominal exam: Present: soft, tenderness, normal bowel sounds, other (G-tube incision site with no induration or fluctuance or swelling or cellulitis present). Absent: distended, guarding, rebound, rigid, diminished bowel sounds - Extremities Exam Extremities exam: Present: normal inspection, full ROM - Back Exam Back exam: Present: normal inspection, full ROM - Neurological Exam Neurological exam: Present: alert, oriented X3 - Psychiatric Psychiatric exam: Present: normal affect, normal mood - Skin Skin exam: Present: warm, dry, intact, normal color. Absent: rash ED Course Vital Signs 04/13/18 04/13/18 15:09 16:25 Temperature 98.3 F Pulse Rate 100 H Respiratory 18 18 Rate Blood Pressure 121/79 O2 Sat by Pulse 100 82 L Oximetry - Reevaluation(s) Reevaluation #1: 04/13/18 18:12 Patient is speaking in full sentences with no signs of distress noted. ED Medical Decision Making - Lab Data Result diagrams: 04/13/18 Unknown - Medical Decision Making This is a 42-year-old female that presents with G-tube malfunction. Patient is stable and was examined by me. I attempted to reinsert G-tube with Lucille Braun several time with no success. Patient was consulted with Sergio Tejada ([facility]) and recommended patient to be admitted with hospitalist for a possible procedure tomorrow morning. Patient put out nothing by mouth after midnight. Labs obtained. Patient has been consulted with Dr. Kaleigh V (hospitalist) about patient and accepts patient to services for admission. At time of admission, the patient does not seem toxic or ill in appearance. No acute signs of distress noted. Patient agrees to admission treatment plan of care. No further questions noted by the patient. Critical care attestation.: If time is entered above; I have spent that time in minutes in the direct care of this critically ill patient, excluding procedure time. ED Disposition Clinical Impression: Dislodged gastrostomy tube, Malfunction of gastrostomy tube Disposition: OP ADMIT IP TO THIS HOSP Is pt being admited?: Yes
[2018-04-13 18:34] LABS: Alanine Aminotransferase 46 units/L (7-56); Albumin 4.5 g/dL (3.9-5); BUN/Creatinine Ratio 11; Blood Urea Nitrogen 9 mg/dL (7-17); Calcium 9.1 mg/dL (8.4-10.2); Hemolysis Index 1
[2018-04-13] MEDS ORDERED: REGLAN IV PRN (21:43)
[2018-04-13] MEDS ORDERED: TYLENOL PO PRN (21:43)
[2018-04-13] MEDS ORDERED: SODIUM CHLORIDE FLUSH SYRINGE 10 ML IV PRN (21:43)
[2018-04-13] MEDS ORDERED: ZOFRAN IV PRN (21:43)
--- NOTE | 2018-04-13 21:43 | Event Note ---
Date: 04/13/18 Seer H/p in reports Gtube malfundction Gastroparesis
[2018-04-13] MEDS ORDERED: NACL 0.9% 1000 ML 1,000 ML IV SCH (22:00)
[2018-04-13] MEDS: MORPHINE IV PRN (23:04)
[2018-04-13] MEDS: SODIUM CHLORIDE FLUSH SYRINGE 10 ML IV SCH (23:05)
[2018-04-13] MEDS: D5NS 1,000 ML IV SCH (23:07)
[2018-04-14] MEDS: MORPHINE IV PRN ×2 (06:14→20:16)
--- NOTE | 2018-04-14 07:09 | History and Physical Report ---
CHIEF COMPLAINT: Unable to replace the G-tube. HISTORY OF PRESENT ILLNESS: A 42-year-old female with severe gastroparesis, on G-tube and J-tube for feeding and also Ramirez catheter for TPN, comes in for inability to replace the G-tube. The patient has been changing her G-tube every 6 months by herself. In the ER, physician and the nurse practitioner tried changing her change and was unable to do it back. The patient is being admitted for reinsertion of G-tube. The patient does not have vomiting at this point. No fever or chills. The patient was on antibiotics in the past for infection. No fever or chills. PAST MEDICAL HISTORY: Significant for diabetes, deep vein thrombosis, right axillary vein, severe gastroparesis, GERD. PAST SURGICAL HISTORY: G-tube and J-tube placement in 2016 and 2017 respectively. Hysterectomy. Breast augmentation. PICC line. SOCIAL HISTORY: Does not smoke. FAMILY HISTORY: Noncontributory. REVIEW OF SYSTEMS: Significant for G-tube placement. No nausea, no vomiting, no diarrhea. No fever or chills. Otherwise, 14-point review of systems negative. PHYSICAL EXAMINATION: GENERAL: A young female, cooperative during examination. VITAL SIGNS: Blood pressure is 121/79, temperature is 98.3, pulse is 100, respirations are 18. HEENT: Unremarkable. Pupils equal and reactive. NECK: Supple, no lymphadenopathy, no thyromegaly. LUNGS: Clear to auscultation and percussion. Good air entry. CARDIOVASCULAR: S1, S2 heard. No gallop, no murmur, no rub. Apical impulse in left fifth intercostal space and midclavicular line. ABDOMEN: Soft and benign. No hepatosplenomegaly. No guarding, no rigidity. Hernial orifices are normal. Reexamination of the abdomen, G-tube site, no G-tube, J-tube is functioning. EXTREMITIES: Good pedal pulses. No pedal edema. LABORATORY DATA: Labs are normal. ASSESSMENT AND PLAN: 1. G-tube malfunction. The patient unable to replace the G-tube. G-tube to be replaced. 2. Gastroparesis. At this point, the patient is not vomiting. The patient to get TPN. Dietitian consult requested for TPN. The patient admitted for 24 hours for replacement of the G-tube. 3. Deep venous thrombosis prophylaxis, Lovenox 40 mg subcutaneous daily. JOB# [id number] LINDAM/ELOISA MTDD
[2018-04-14 07:50] LABS: Basophils % (Auto) 0.3 % (0.0-1.8); Hematocrit 34.7 % (30.3-42.9); Hemoglobin 11.4 gm/dl (10.1-14.3); Lymphocytes # (Auto) 2.2 K/mm3 (1.2-5.4); Lymphocytes % (Auto) 45.9 % (13.4-35.0); Mean Corpuscular HGB Conc 33 % (30-34); Mean Corpuscular Volume 92 fl (79-97); Monocytes # (Auto) 0.4 K/mm3 (0.0-0.8); Monocytes % (Auto) 8.7 % (0.0-7.3); Platelet Count 199 K/mm3 (140-440); Red Blood Count 3.77 M/mm3 (3.65-5.03); Red Cell Distribution Width 13.7 % (13.2-15.2)
[2018-04-14 07:57] LABS: Alanine Aminotransferase 36 units/L (7-56); BUN/Creatinine Ratio 10; Blood Urea Nitrogen 9 mg/dL (7-17); Calcium 8.9 mg/dL (8.4-10.2); Hemolysis Index 5
[2018-04-14] MEDS ORDERED: GENTAMICIN 120 MG in NACL 0.9% 100 ML IV SCH (09:00)
[2018-04-14] MEDS ORDERED: NACL 0.9% 1000 ML 1,000 ML IV SCH (09:00)
[2018-04-14] MEDS ORDERED: ANCEF/STERILE WATER 2 GM/20 ML 2 GM/20 ML SYRINGE IV NR (09:00)
--- NOTE | 2018-04-14 09:41 | Gastroenterology Consultation ---
<MORELIA RAMIREZ - Last Filed: 04/14/18 10:11> History of Present Illness - Reason for Consult Consult date: 04/14/18 G-tube malfunction Requesting physician: TINA MUSE - History of Present Illness Patient is a 42 y/o female who presented to ED with c/o malfunctioning PEG to which GI has been consulted. This morning patient was resting in bed w/o acute distress. By patient report, she has a hx of gastroparesis with a G-tube and J-tube in place. She states that she uses the J-tube for feedings and medications and the G-tube more for decompression and occasionally medications to which she changes out herself every 3 month herself. Yesterday after she removed the G-tube (DANG-CARDOZA) at 4 pm for an exchange she was unable to replacement tube due to resistance, along with bleeding at the site and come to the hospital for evaluation. G-tube was attempted to be reinserted by ER provider with no success upon admission. Weight has been stable. Admits to some abd distention but denies fever, CP, SOB, abd pain, N/V, or signs of bleeding. Currently on TPN 18 hrs a day as well. Upon exam, old G-tube site w/o redness, swelling, drainage, odor, or bleeding. Past History Past Medical History: diabetes, DVT, GERD, other (Gastroparesis, on TPN) Past Surgical History: hysterectomy, Other (breast augmentation, Infusaport left chest wall, G-tube(2016) and J-tube(2017), PICC line) Social history: denies: smoking, alcohol abuse Medications and Allergies Allergies Allergy/AdvReac Type Severity Reaction Status Date / Time ketorolac [From Toradol] Allergy Swelling Verified 02/11/18 20:10 metoclopramide [From Reglan] Allergy Unknown Verified 02/11/18 20:10 Penicillins Allergy Swelling Verified 02/11/18 20:10 prochlorperazine Allergy Unknown Verified 02/11/18 20:10 [From Compazine] promethazine [From Phenergan] Allergy Swelling Verified 02/11/18 20:10 tramadol Allergy Swelling Verified 02/11/18 20:10 adhesive tape AdvReac Itching Verified 02/11/18 20:10 Home Medications Medication Instructions Recorded Confirmed Last Taken Type RX: Ondansetron [Zofran ODT TAB] 4 mg PO Q4HR PRN 03/04/18 04/04/18 04/03/18 History 4mg Clindamycin [Clindamycin CAP] 300 mg PO Q8H #21 cap 04/03/18 04/04/18 04/03/18 Rx 300mg HYDROcodone/APAP 5-325 [[place] 1 each PO Q6HR PRN #20 tablet 04/04/18 Unknown Rx 5/325] Active Meds: Active Medications Acetaminophen (Tylenol) 650 mg PO Q4H PRN PRN Reason: Pain MILD(1-3)/Fever >100.5/GONZALEZ Hydromorphone HCl (Dilaudid) 0.5 mg IV Q3H PRN PRN Reason: Pain , Severe (7-10) Dextrose/Sodium Chloride (D5ns) 1,000 mls @ 75 mls/hr IV DIRECT HERI Last Admin: 04/13/18 23:07 Dose: 75 mls/hr Documented by: Sodium Chloride (Nacl 0.9% 1000 Ml) 1,000 mls @ 42 mls/hr IV DIRECT HERI Sodium Chloride (Nacl 0.9% 1000 Ml) 1,000 mls @ 50 mls/hr IV DIRECT HERI Stop: 04/15/18 08:59 Clindamycin HCl (Cleocin 600 Mg/50 Ml) 600 mg in 50 mls @ 100 mls/hr IV PREOP NR; Protocol Stop: 04/14/18 13:00 Gentamicin Sulfate/Sodium Chloride (Garamycin/Ns 120mg/100ml) 120 mg in 100 mls @ 200 mls/hr IV PREOP NR Stop: 04/14/18 13:00 Metoclopramide HCl (Reglan) 10 mg IV Q6H PRN PRN Reason: Nausea And Vomiting Morphine Sulfate (Morphine) 2 mg IV Q4H PRN PRN Reason: Pain, Moderate (4-6) Last Admin: 04/14/18 06:14 Dose: 2 mg Documented by: Ondansetron HCl (Zofran) 4 mg IV Q8H PRN PRN Reason: Nausea And Vomiting Sodium Chloride (Sodium Chloride Flush Syringe 10 Ml) 10 ml IV BID HERI Last Admin: 04/13/18 23:05 Dose: 10 ml Documented by: Sodium Chloride (Sodium Chloride Flush Syringe 10 Ml) 10 ml IV PRN PRN PRN Reason: LINE FLUSH medications reviewed/updated as required Review of Systems - Review of Systems All systems: negative Gastrointestinal: other (dislodged G-tube, mild abd distention), no abdominal pain, no nausea, no vomiting Exam - Constitutional Vital Signs: Temp Pulse Resp BP Pulse Ox 97.8 F 80 16 94/56 98 04/14/18 06:07 04/14/18 06:07 04/14/18 06:07 04/14/18 06:07 04/14/18 06:07 General appearance: no acute distress, well-nourished - Respiratory Respiratory: bilateral: CTA - Cardiovascular Rhythm: regular Heart Sounds: Present: S1 & S2 - Gastrointestinal General gastrointestinal: Present: soft, non-distended, normal bowel sounds, other (+old PEG site w/o s/s of infection, +J tube) - Neurologic Neurological: alert and oriented x3 - Labs CBC & Chem 7: 04/14/18 06:40 04/14/18 06:40 Lab Results: Laboratory Results - last 24 hr 04/13/18 04/13/18 04/13/18 Unknown Unknown Unknown WBC 6.2 RBC 4.10 Hgb 12.3 Hct 37.7 MCV 92 MCH 30 MCHC 33 RDW 13.9 Plt Count 235 Lymph % (Auto) 24.9 Collin % (Auto) 5.2 Eos % (Auto) 0.1 Baso % (Auto) 3.0 H Lymph # 1.5 Collin # 0.3 Eos # 0.0 Baso # 0.2 H Seg Neutrophils % 66.8 Seg Neutrophils # 4.2 Sodium 139 Potassium 4.0 Chloride 101.3 Carbon Dioxide 27 Anion Gap 15 BUN 9 Creatinine 0.8 Estimated GFR > 60 BUN/Creatinine Ratio 11 Glucose 83 Hemoglobin A1c Calcium 9.1 Total Bilirubin < 0.20 AST 34 ALT 46 Alkaline Phosphatase 96 Total Protein 7.9 Albumin 4.5 Albumin/Globulin Ratio 1.3 HCG, Qual Negative 04/13/18 04/14/18 04/14/18 Unknown 06:40 06:40 WBC 4.8 RBC 3.77 Hgb 11.4 Hct 34.7 MCV 92 MCH 30 MCHC 33 RDW 13.7 Plt Count 199 Lymph % (Auto) 45.9 H Collin % (Auto) 8.7 H Eos % (Auto) 0.0 Baso % (Auto) 0.3 Lymph # 2.2 Collin # 0.4 Eos # 0.0 Baso # 0.0 Seg Neutrophils % 45.1 Seg Neutrophils # 2.2 Sodium 141 Potassium 3.9 Chloride 103.1 Carbon Dioxide 27 Anion Gap 15 BUN 9 Creatinine 0.9 Estimated GFR > 60 BUN/Creatinine Ratio 10 Glucose 89 Hemoglobin A1c 6.0 Calcium 8.9 Total Bilirubin 0.20 AST 22 ALT 36 Alkaline Phosphatase 87 Total Protein 7.0 Albumin 4.0 Albumin/Globulin Ratio 1.3 HCG, Qual Assessment and Plan 1.malfunctioning G-tube -patient with a hx of gastroparesis with G-tube and J-tube for feedings/decompression to which she removed G-tube yesterday to exchange tube but was unable to replace due to resistance and bleeding at site. Upon admission, reinsertion attempted by ED provider was also unsuccessful. -old G-tube site w/o s/s infection -J-tube intact and functioning -will schedule for EGD today with replacement of G-tube -Keep NPO -continue current medications and TPN -continue supportive care -will follow <JORDON DOMINGUEZ - Last Filed: 04/14/18 19:26> Medications and Allergies Active Meds: Active Medications Acetaminophen (Tylenol) 650 mg PO Q4H PRN PRN Reason: Pain MILD(1-3)/Fever >100.5/GONZALEZ Lipase/Protease/Amylase (Pancreaze Dr 10,500 Unit) 1 each FEEDTUBE PRN PRN PRN Reason: For Clogged Feeding Tube Diphenhydramine HCl (Banophen) 25 mg FEEDTUBE Q6H PRN PRN Reason: Itching Last Admin: 04/14/18 18:40 Dose: 25 mg Documented by: Hydromorphone HCl (Dilaudid) 0.5 mg IV Q3H PRN PRN Reason: Pain , Severe (7-10) Last Admin: 04/14/18 16:29 Dose: 0.5 mg Documented by: Dextrose/Sodium Chloride (D5ns) 1,000 mls @ 75 mls/hr IV DIRECT HERI Last Admin: 04/14/18 16:30 Dose: 75 mls/hr Documented by: Sodium Chloride (Nacl 0.9% 1000 Ml) 1,000 mls @ 50 mls/hr IV DIRECT HERI Stop: 04/15/18 08:59 Last Admin: 04/14/18 10:35 Dose: 50 mls/hr Documented by: Morphine Sulfate (Morphine) 2 mg IV Q4H PRN PRN Reason: Pain, Moderate (4-6) Ondansetron HCl (Zofran) 4 mg IV Q8H PRN PRN Reason: Nausea And Vomiting Last Admin: 04/14/18 18:59 Dose: 4 mg Documented by: Simple Syrup (Simple Syrup) 15 ml FEEDTUBE PRN PRN PRN Reason: Hypoglycemia Simple Syrup (Simple Syrup) 30 ml FEEDTUBE PRN PRN PRN Reason: Hypoglycemia Sodium Bicarbonate (Sodium Bicarbonate) 325 mg FEEDTUBE PRN PRN PRN Reason: For Clogged Feeding Tube Sodium Chloride (Sodium Chloride Flush Syringe 10 Ml) 10 ml IV BID [facility] Last Admin: 04/13/18 23:05 Dose: 10 ml Documented by: Sodium Chloride (Sodium Chloride Flush Syringe 10 Ml) 10 ml IV PRN PRN PRN Reason: LINE FLUSH Exam - Constitutional Vital Signs: Temp Pulse Resp BP Pulse Ox 97.7 F 81 12 95/56 97 04/14/18 11:38 04/14/18 12:15 04/14/18 12:15 04/14/18 12:15 04/14/18 12:15 - Labs CBC & Chem 7: 04/14/18 06:40 04/14/18 06:40 Lab Results: Laboratory Results - last 24 hr 04/13/18 04/14/18 04/14/18 Unknown 06:40 06:40 WBC 4.8 RBC 3.77 Hgb 11.4 Hct 34.7 MCV 92 MCH 30 MCHC 33 RDW 13.7 Plt Count 199 Lymph % (Auto) 45.9 H Collin % (Auto) 8.7 H Eos % (Auto) 0.0 Baso % (Auto) 0.3 Lymph # 2.2 Collin # 0.4 Eos # 0.0 Baso # 0.0 Seg Neutrophils % 45.1 Seg Neutrophils # 2.2 Sodium 141 Potassium 3.9 Chloride 103.1 Carbon Dioxide 27 Anion Gap 15 BUN 9 Creatinine 0.9 Estimated GFR > 60 BUN/Creatinine Ratio 10 Glucose 89 Hemoglobin A1c 6.0 Calcium 8.9 Phosphorus Magnesium Total Bilirubin 0.20 AST 22 ALT 36 Alkaline Phosphatase 87 Total Protein 7.0 Albumin 4.0 Albumin/Globulin Ratio 1.3 04/14/18 06:40 WBC RBC Hgb Hct MCV MCH MCHC RDW Plt Count Lymph % (Auto) Collin % (Auto) Eos % (Auto) Baso % (Auto) Lymph # Collin # Eos # Baso # Seg Neutrophils % Seg Neutrophils # Sodium Potassium Chloride Carbon Dioxide Anion Gap BUN Creatinine Estimated GFR BUN/Creatinine Ratio Glucose Hemoglobin A1c Calcium Phosphorus 4.30 Magnesium 2.10 Total Bilirubin AST ALT Alkaline Phosphatase Total Protein Albumin Albumin/Globulin Ratio Assessment and Plan Pt seen and examined. Agree with note above.
[2018-04-14] MEDS ORDERED: CLEOCIN 600 MG/50 mL 600 MG/50 ML BAG IV NR (10:00)
[2018-04-14] MEDS ORDERED: GENTAMICIN/NS 120MG/100ML 120 MG/100 ML BAG IV NR (10:00)
--- NOTE | 2018-04-14 10:32 | Anesthesia Consultation ---
Anesthesia Consult and Med Hx Date of service: 04/14/18 - Airway Anesthetic Teeth Evaluation: Good ROM Head & Neck: Adequate Mental/Hyoid Distance: Adequate Mallampati Class: Class II Intubation Access Assessment: Probably Good - Pulmonary Exam CTA: Yes - Cardiac Exam Cardiac Exam: RRR - Pre-Operative Health Status ASA Pre-Surgery Classification: ASA4 Proposed Anesthetic Plan: MAC - Pulmonary Hx Smoking: No Hx Pneumonia: No - Cardiovascular System Hx Pacemaker: No Hx Internal Defibrillator: No Hx Peripheral Vascular Disease: Yes (right upper arm vein thrombosis s/p PICC line) - Central Nervous System Hx Psychiatric Problems: No - Gastrointestinal Hx Gastroesophageal Reflux Disease: No (G-tube and J-tube in-situ for gastroparesis) - Endocrine Hx End Stage Renal Disease: No Hx Non-Insulin Dependent Diabetes: Yes - Hematic Hx Sickle Cell Disease: No - Other Systems Hx Cancer: No - Additional Comments Anesthesia Medical History Comments: No GAC, No FHAC
[2018-04-14] MEDS ORDERED: DIPRIVAN 10 MG/ML IV ONE (11:07)
[2018-04-14] MEDS ORDERED: VERSED ONE (11:07)
--- NOTE | 2018-04-14 11:32 | Operative Report ---
Operative Report Operative Report: Esophagogastroduodenoscopy with PEG tube placement Date of procedure: 04/14/2018 Endoscopist: Sergio Medeiros Pre-op diagnosis/indication: Gastroparesis, venting PEG tube Post-op diagnosis: Successful PEG tube placement MEDICATIONS: MAC, ancef 2 gm COMPLICATIONS: No immediate complications ESTIMATED BLOOD LOSS: minimal DESCRIPTION OF PROCEDURE: After consent was obtained, the patient was placed in the left lateral decubitis position. The upper olympus endoscope was passed with direct vision through the mouth and advanced to the 2nd portion of the duodenum. The mucosal views were good. The patient tolerated the procedure fairly well. The stomach was transilluminated and an optimal position for the PEG tube was identified using finger indentation and transillumination. The site was sterilized in standard fashion. The skin was infiltrated with local (lidocaine), and incision was made, followed insertion of needle and sheath through the abdomen and into the stomach. The needle was removed and a guidewire was inserted through the sheath. The guidewire was grasped with a snare and removed completely. 20 Fr PEG tube was attached to guidewire, then pulled through the mouth and esophagus and snug to the abdominal wall (confirmed by direct endoscopic visualization). FINDINGS: Successful PEG tube placement as detailed above. IMPRESSION: 1. Successful PEG tube placement as above RECOMMENDATIONS: -post PEG care daily -venting via PEG tube per patient's needs -cont tube feeds through J tube
[2018-04-14] MEDS ORDERED: DILAUDID ONE (11:51)
--- NOTE | 2018-04-14 12:04 | Anesthesia Day of Surgery ---
Anesthesia Day of Surgery - Day of Surgery Patient Examined: Yes Patient H&P Reviewed: Yes Patient is NPO: Yes
--- NOTE | 2018-04-14 12:05 | Post Anesthesia Evaluation ---
- Post Anesthesia Evaluation Patient Participated: Yes Airway Patent: Yes Stable Respiratory Function: Yes Temp > 96.8F: Yes Pain Manageable: Yes Adequeate Hydration: Yes Anesthesia Complications: No
[2018-04-14] MEDS ORDERED: DILAUDID IV ONE ×2 (12:30→12:41)
[2018-04-14] MEDS: DILAUDID IV PRN ×2 (16:29→23:27)
[2018-04-14] MEDS: D5NS 1,000 ML IV SCH (16:30)
[2018-04-14] MEDS ORDERED: SODIUM BICARBONATE FEEDTUBE PRN (17:13)
[2018-04-14] MEDS ORDERED: SIMPLE SYRUP FEEDTUBE PRN ×2 (17:13)
[2018-04-14] MEDS ORDERED: PANCREAZE DR 10,500 UNIT FEEDTUBE PRN (17:13)
--- NOTE | 2018-04-14 17:40 | Progress Note ---
Assessment and Plan Assessment and plan: --Malfunctioning of PEG tube; GI evaluated the patient Scheduling replacement of PEG, supportive care is ----History of gastroparesis; patient has G-tube for venting, and J-tube for feeding GI following, continue current management, TPN as needed --J-tube is functional and intact; continue tube feeding per protocol --DVT prophylaxis; Lovenox Closely monitor the patient and adjust management as needed Plan of care reviewed for the patient and her nurse History Interval history: Patient seen and evaluated medical records reviewed was admitted with malfunctioning PEG tube GI evaluated the patient and scheduled for replacement of PEG Patient complaints of pain and requests more pain medication Alert awake oriented 3 Vital signs reviewed Hospitalist Physical - Constitutional Vitals: Temp Pulse Resp BP Pulse Ox 97.7 F 81 12 95/56 97 04/14/18 11:38 04/14/18 12:15 04/14/18 12:15 04/14/18 12:15 04/14/18 12:15 General appearance: Present: no acute distress, well-nourished - EENT Eyes: Present: PERRL, EOM intact - Neck Neck: Present: supple, normal ROM - Respiratory Respiratory effort: normal Respiratory: bilateral: diminished, negative: rales, rhonchi, wheezing - Cardiovascular Rhythm: regular Heart Sounds: Present: S1 & S2 - Extremities Extremities: no ischemia, No edema - Abdominal General gastrointestinal: soft, non-tender, non-distended, normal bowel sounds, other (J-tube intact) - Integumentary Integumentary: Present: clear, warm - Psychiatric Psychiatric: appropriate mood/affect, cooperative - Neurologic Neurologic: CNII-XII intact, moves all extremities Results - Labs CBC & Chem 7: 04/14/18 06:40 04/14/18 06:40 Labs: Laboratory Last Values WBC 4.8 K/mm3 (4.5-11.0) 04/14/18 06:40 RBC 3.77 M/mm3 (3.65-5.03) 04/14/18 06:40 Hgb 11.4 gm/dl (10.1-14.3) 04/14/18 06:40 Hct 34.7 % (30.3-42.9) 04/14/18 06:40 MCV 92 fl (79-97) 04/14/18 06:40 MCH 30 pg (28-32) 04/14/18 06:40 MCHC 33 % (30-34) 04/14/18 06:40 RDW 13.7 % (13.2-15.2) 04/14/18 06:40 Plt Count 199 K/mm3 (140-440) 04/14/18 06:40 Lymph % (Auto) 45.9 % (13.4-35.0) H 04/14/18 06:40 Mora % (Auto) 8.7 % (0.0-7.3) H 04/14/18 06:40 Eos % (Auto) 0.0 % (0.0-4.3) 04/14/18 06:40 Baso % (Auto) 0.3 % (0.0-1.8) 04/14/18 06:40 Lymph # 2.2 K/mm3 (1.2-5.4) 04/14/18 06:40 Mora # 0.4 K/mm3 (0.0-0.8) 04/14/18 06:40 Eos # 0.0 K/mm3 (0.0-0.4) 04/14/18 06:40 Baso # 0.0 K/mm3 (0.0-0.1) 04/14/18 06:40 Seg Neutrophils % 45.1 % (40.0-70.0) 04/14/18 06:40 Seg Neutrophils # 2.2 K/mm3 (1.8-7.7) 04/14/18 06:40 Sodium 141 mmol/L (137-145) 04/14/18 06:40 Potassium 3.9 mmol/L (3.6-5.0) 04/14/18 06:40 Chloride 103.1 mmol/L (98-107) 04/14/18 06:40 Carbon Dioxide 27 mmol/L (22-30) 04/14/18 06:40 Anion Gap 15 mmol/L 04/14/18 06:40 BUN 9 mg/dL (7-17) 04/14/18 06:40 Creatinine 0.9 mg/dL (0.7-1.2) 04/14/18 06:40 Estimated GFR > 60 ml/min 04/14/18 06:40 BUN/Creatinine Ratio 10 % 04/14/18 06:40 Glucose 89 mg/dL (65-100) 04/14/18 06:40 Hemoglobin A1c 6.0 % (4-6) 04/13/18 Unknown Calcium 8.9 mg/dL (8.4-10.2) 04/14/18 06:40 Phosphorus 4.30 mg/dL (2.5-4.5) 04/14/18 06:40 Magnesium 2.10 mg/dL (1.7-2.3) 04/14/18 06:40 Total Bilirubin 0.20 mg/dL (0.1-1.2) 04/14/18 06:40 AST 22 units/L (5-40) 04/14/18 06:40 ALT 36 units/L (7-56) 04/14/18 06:40 Alkaline Phosphatase 87 units/L (35-129) 04/14/18 06:40 Total Protein 7.0 g/dL (6.3-8.2) 04/14/18 06:40 Albumin 4.0 g/dL (3.9-5) 04/14/18 06:40 Albumin/Globulin Ratio 1.3 % 04/14/18 06:40 HCG, Qual Negative (Negative) 04/13/18 Unknown Nutrition/Malnutrition Assess - Dietary Evaluation Nutrition/Malnutrition Findings: Nutrition Notes Start: 04/14/18 17:06 Freq: Status: Active Protocol: Document 04/14/18 17:06 OL (Rec: 04/14/18 17:13 OL [id number]) Nutrition Notes Need for Assessment generated from: MD Order Initial or Follow up Assessment Current Diagnosis Diabetes Other Pertinent Diagnosis gastroparesis Current Diet NPO Labs/Tests Reviewed Pertinent Medications Reviewed Height 5 ft 8 in Weight 79.5 kg [place] Body Weight (lbs) 140.0 BMI 26.6 Subjective/Other Information RD consult for TPN and TF. cancelled TPN consult later today and only desires to run TF. Pt. with G/J tube. Pt. well known to RD through frequent admissions; pt. using TPN and TF to meet nutrient needs. Pt. currently receiving TPN services through [facility]. Pt. admitted for G tube malfunction. G tube replaced. Pt. utilizing Glucerna 1.2 at home at 20mL/ hr (this is the most she is able to tolerate). Pt. to d/c home tomorrow. Burn Absent Trauma Absent #1 Nutrition Diagnosis Inadequate oral intake Etiology gastroparesis As Evidenced by Signs and Symptoms pt. meeting nutrient needs via TF and TPN Is patient on ventilator? No Is Patient Ambulatory and/or Out of Bed Yes REE-([facility]-ambulatory/OOB) [ 1948.050 [id number]] Calculation Used for Recommendations [facility] Additional Notes protein (0.8-1g/kg): 64-79g fluid: 1mL/kcal or per MD Nutrition Intervention Change Diet Order: TF Nutrition Support: Glucerna 1.2 at 20mL/hr. 50mL flush q4h Kcal 576 Protein (gm) 29 Fluid (mL) 386 Goal #1 TF tolerance Anticipated Discharge Needs: TF + TPN Follow-Up By: 04/15/18 Additional Comments f/u: TF tolerance/ need to start TPN?
[2018-04-14] MEDS: BANOPHEN FEEDTUBE PRN (18:40)
[2018-04-14] MEDS ORDERED: TPN ADULT 1,999.92 ML IV SCH (20:00)
[2018-04-14] MEDS: SODIUM CHLORIDE FLUSH SYRINGE 10 ML IV SCH ×2 (20:22→21:57)
[2018-04-15] MEDS: DILAUDID IV PRN (04:12)
[2018-04-15] MEDS: MORPHINE IV PRN ×2 (05:20→09:52)
[2018-04-15] MEDS: D5NS 1,000 ML IV SCH (05:21)
[2018-04-15 06:14] LABS: Basophils % (Auto) 0.2 % (0.0-1.8); Hematocrit 30.7 % (30.3-42.9); Hemoglobin 10.1 gm/dl (10.1-14.3); Lymphocytes # (Auto) 1.8 K/mm3 (1.2-5.4); Lymphocytes % (Auto) 39.6 % (13.4-35.0); Mean Corpuscular HGB Conc 33 % (30-34); Mean Corpuscular Volume 93 fl (79-97); Monocytes # (Auto) 0.4 K/mm3 (0.0-0.8); Platelet Count 175 K/mm3 (140-440); Red Blood Count 3.31 M/mm3 (3.65-5.03); Red Cell Distribution Width 13.7 % (13.2-15.2)
[2018-04-15] MEDS: BANOPHEN FEEDTUBE PRN (06:32)
[2018-04-15 06:39] LABS: BUN/Creatinine Ratio 10; Blood Urea Nitrogen 8 mg/dL (7-17); Calcium 8.3 mg/dL (8.4-10.2); Hemolysis Index 13
--- NOTE | 2018-04-15 11:53 | Gastroenterology Progress Note ---
Assessment and Plan 1.malfunctioning G-tube -patient with a hx of gastroparesis with G-tube and J-tube for feedings/decompression. she removed G-tube (DANG-CARDOZA) to exchange tube but was unable to replace due to resistance and bleeding at site. Upon admission, r einsertion attempted by ED provider was also unsuccessful. -s/p EGD with PEG replacement yesterday -PEG site this am w/o s/s of infection or bleeding -post PEG care daily; split gauze dressing PRN -clinically, patient denies abd pain or N/V. -Tolerating TFs via J-tube -continue supportive care -patient is okay to be d/c per GI standpoint with follow up with primary GI in ~3-4 weeks (can assess possibility of changing out PEG to DANG-CARDOZA at that time per pt request) -will sign off, please call if needed Subjective Date of service: 04/15/18 Principal diagnosis: dislodged PEG Interval history: PEG site w/o redness, swelling, odor, bleeding, or drainage. Patient admits to some mild local soreness at site but no abd pain or N/V. Tolerating TFs via J- tube. Objective - Constitutional Vitals: Temp Pulse Resp BP Pulse Ox 98.9 F 83 20 86/49 96 04/15/18 06:07 04/15/18 06:07 04/15/18 06:07 04/15/18 06:07 04/15/18 06:07 General appearance: no acute distress - Respiratory Respiratory: bilateral: CTA - Cardiovascular Rhythm: regular Heart Sounds: Present: S1 & S2 - Gastrointestinal General gastrointestinal: Present: soft, tender (slight TTP around PEG site), non-distended, normal bowel sounds, other (+J-tube, +PEG ) - Neurologic Neurological: alert and oriented x3 - Labs CBC & Chem 7: 04/15/18 05:45 04/15/18 05:45 Labs: Laboratory Results - last 24 hr 04/14/18 04/15/18 04/15/18 21:38 05:45 05:45 WBC 4.6 RBC 3.31 L Hgb 10.1 Hct 30.7 MCV 93 MCH 31 MCHC 33 RDW 13.7 Plt Count 175 Lymph % (Auto) 39.6 H Woodson % (Auto) 9.0 H Eos % (Auto) 0.0 Baso % (Auto) 0.2 Lymph # 1.8 Woodson # 0.4 Eos # 0.0 Baso # 0.0 Seg Neutrophils % 51.2 Seg Neutrophils # 2.4 Sodium 136 L Potassium 4.0 Chloride 102.7 Carbon Dioxide 24 Anion Gap 13 BUN 8 Creatinine 0.8 Estimated GFR > 60 BUN/Creatinine Ratio 10 Glucose 100 POC Glucose 101 Calcium 8.3 L Phosphorus 4.10 Magnesium 2.00
--- NOTE | 2018-04-15 11:59 | Discharge Summary ---
Providers - Providers Date of Admission: 04/13/18 16:21 Date of discharge: 04/15/18 Attending physician: TORITO KELLY 04/13/18 16:23 Consult to Physician [CONS] Urgent Comment: Consulting Provider: JORDON DOMINGUEZ Physician Instructions: Reason For Exam: g-tube malfunction 04/13/18 21:44 Consult to Dietitian/Nutrition [CONS] Routine Physician Instructions: Reason For Exam: TPN orders Reason for Consult: Pt needs oral supplement 04/14/18 14:25 Consult to Dietitian/Nutrition [CONS] Routine Physician Instructions: Reason For Exam: Reason for Consult: tube feeding Primary care physician: SHERMAN OLSON Hospitalization Reason for admission: PEG malfunction Condition: Stable Procedures: PEG replacement Hospital course: 42 yr old female patient with h/o severe gastroparesis with PEG tube on PEG feeds was admitted with malfunctioning of PEG tube.GI evaluated the patient and replaced the PEG tube abd pt tolerated PEG feeds. Today patient is comfortable,no new complaints,vital signs stable,Physical exam unremarkable. Patient is stable at discharge. Discharge Diagnosis: --Malfunctioning of PEG tube; GI evaluated the patient replacement of PEG, supportive care is ----History of gastroparesis; patient has G-tube for venting, and J-tube for feeding PEG feeds and TPN as needed --J-tube is functional and intact; continue tube feeding per protocol Stable at discharge Disposition: [facility] TO HOME OR SELFCARE Time spent for discharge: 32 min Core Measure Documentation - Palliative Care Palliative Care/ Comfort Measures: Not Applicable - Core Measures Any of the following diagnoses?: none Exam - Constitutional Vitals: Temp Pulse Resp BP Pulse Ox 98.9 F 83 20 86/49 96 04/15/18 06:07 04/15/18 06:07 04/15/18 06:07 04/15/18 06:07 04/15/18 06:07 General appearance: Present: no acute distress, well-nourished - EENT Eyes: Present: PERRL, EOM intact - Neck Neck: Present: supple, normal ROM - Respiratory Respiratory effort: normal Respiratory: negative: rales, rhonchi, wheezing - Cardiovascular Rhythm: regular Heart Sounds: Present: S1 & S2 - Extremities Extremities: no ischemia, No edema - Abdominal General gastrointestinal: Present: soft, non-tender, non-distended, normal bowel sounds - Integumentary Integumentary: Present: clear, warm - Musculoskeletal Musculoskeletal: strength equal bilaterally - Psychiatric Psychiatric: appropriate mood/affect, cooperative - Neurologic Neurologic: CNII-XII intact, moves all extremities Plan Activity: no restrictions Diet: other (Tube feeds per protocol) Additional Instructions: f/u PMD. f/u Private GI as needed Follow up with: SHERMAN OLSON [Primary Care Provider] - 7 Days Prescriptions: HYDROcodone/APAP 5-325 [[place] 5-325 mg TAB] 1 each PO BID PRN #10 tablet PRN Reason: Pain
[2018-04-15] MEDS ORDERED: FLUSH HEPARIN IV ONE (12:31)
[2018-04-15 16:01] VITALS: BP 103/57
== END 2018-04-15 14:30 | disposition home or self-care (01) | DRG 395 ==
LOC: ED 14:56 → 3A 16:21
PROVIDERS: ADMIT Internal Medicine; ATTEND Internal Medicine
PROC: 0DH63UZ Insertion of Feeding Device into Stomach, Percutaneous Approach (ICD-10-PCS; principal; 2018-04-14)
DX: K94.23 Gastrostomy malfunction (principal); E11.51 Type 2 diabetes mellitus with diabetic peripheral angiopathy without gangrene; E11.43 Type 2 diabetes mellitus with diabetic autonomic (poly)neuropathy; K31.84 Gastroparesis; K21.9 Gastro-esophageal reflux disease without esophagitis; Z86.718 Personal history of other venous thrombosis and embolism; Z90.710 Acquired absence of both cervix and uterus; Z88.0 Allergy status to penicillin; Z79.899 Other long term (current) drug therapy
CPT/HCPCS: 36415; 80048; 80053; 82962; 83036; 83735; 84100; 84703; 85025; 87116; 96374; 96375; G0378; J1170; J1580; J1642; J2250; J2270; J2405; J2704; J7042; Q0163

== ENCOUNTER 2018-05-13 18:57 | Emergency (ER) | payer MEDICAID, OTHER ==
[2018-05-13 20:04] VITALS: BP 135/82
--- NOTE | 2018-05-13 21:11 | Emergency Department Report ---
Blank Doc - Documentation Documentation: 42 y/o female with Hodeg catheter and Jtube presets to ed c/o redness around her jtube and foul odor and swelling to hodge site. no fever or chills.
[2018-05-13 21:33] LABS: Basophils % (Auto) 0.3 % (0.0-1.8); Hematocrit 35.6 % (30.3-42.9); Hemoglobin 11.7 gm/dl (10.1-14.3); Lymphocytes # (Auto) 2.4 K/mm3 (1.2-5.4); Lymphocytes % (Auto) 37.1 % (13.4-35.0); Mean Corpuscular HGB Conc 33 % (30-34); Mean Corpuscular Volume 91 fl (79-97); Monocytes # (Auto) 0.5 K/mm3 (0.0-0.8); Monocytes % (Auto) 7.1 % (0.0-7.3); Platelet Count 247 K/mm3 (140-440); Red Cell Distribution Width 13.8 % (13.2-15.2)
[2018-05-13 21:52] LABS: Alanine Aminotransferase 27 units/L (7-56); Albumin 4.2 g/dL (3.9-5); BUN/Creatinine Ratio 8; Blood Urea Nitrogen 9 mg/dL (7-17); Calcium 9.3 mg/dL (8.4-10.2); Hemolysis Index 12
--- NOTE | 2018-05-13 23:22 | XRay Report ---
FINAL REPORT EXAM: XR CHEST ROUTINE 2V HISTORY: wheeze TECHNIQUE: PA and lateral views of the chest were obtained. PRIORS: Several priors, most recent 12/28/2017. FINDINGS: Right-sided vascular access catheter is present with the tip overlying the distal superior vena cava. The more proximal aspect of the tubing there are no focal consolidations to suggest pneumonia. No la rge pleural effusion. No pneumothorax. Cardiac silhouette and mediastinal structures are unremarkable . No acute osseous abnormality identified. Probable gastric tube overlies the anterior left upper yahir drant. IMPRESSION: No radiographic evidence of acute cardiopulmonary disease. Right-sided vascular access catheter and left upper quadrant G tube are unremarkable.
--- NOTE | 2018-05-13 23:25 | XRay Report ---
FINAL REPORT EXAM: XR ABDOMEN 1V AP HISTORY: Abdominal pain TECHNIQUE: Supine and upright views of the abdomen were obtained. PRIORS: CT abdomen and pelvis dated 01/28/2018. FINDINGS: G-tube overlies the left upper quadrant. Nonobstructive bowel gas pattern. Moderate volume formed sto ol is present in the ascending colon. No free intraperitoneal air appreciated. No acute osseous abno rmality identified. IMPRESSION: Nonobstructive bowel gas pattern.
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
== END 2018-05-14 04:00 | disposition home or self-care (01) ==
LOC: ED 18:57
DX: K94.19 Other complications of enterostomy (principal); E11.9 Type 2 diabetes mellitus without complications; K21.9 Gastro-esophageal reflux disease without esophagitis; Z86.718 Personal history of other venous thrombosis and embolism; Z88.8 Allergy status to other drugs, medicaments and biological substances; Z88.0 Allergy status to penicillin; Z88.5 Allergy status to narcotic agent
CPT/HCPCS: 36415; 71046; 74018; 80053; 83690; 85025

== ENCOUNTER 2018-06-07 16:01 | Inpatient (IN) | payer MEDICAID, OTHER ==
[2018-06-07] MEDS ORDERED: NACL 0.9% 1000 ML IV ONE (16:12)
[2018-06-07] MEDS ORDERED: BENADRYL IV ONE (16:18)
[2018-06-07] MEDS ORDERED: ZOFRAN IV ONE (16:18)
[2018-06-07] MEDS ORDERED: SUBLIMAZE IV ONE (16:18)
[2018-06-07] MEDS ORDERED: MORPHINE IV ONE (16:27)
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
[2018-06-07 16:58] LABS: Basophils % (Auto) 0.2 % (0.0-1.8); Hematocrit 38.4 % (30.3-42.9); Hemoglobin 12.9 gm/dl (10.1-14.3); Lymphocytes # (Auto) 0.4 K/mm3 (1.2-5.4); Mean Corpuscular HGB Conc 34 % (30-34); Mean Corpuscular Volume 90 fl (79-97); Monocytes # (Auto) 0.6 K/mm3 (0.0-0.8); Monocytes % (Auto) 7.2 % (0.0-7.3); Platelet Count 213 K/mm3 (140-440); Red Blood Count 4.28 M/mm3 (3.65-5.03); Red Cell Distribution Width 14.1 % (13.2-15.2)
--- NOTE | 2018-06-07 17:05 | XRay Report ---
PROCEDURE: XR CHEST 1V AP TECHNIQUE: Single view chest HISTORY: fever, tachycardia COMPARISONS: Chest x-ray May 13, 2018 FINDINGS: Trachea midline. Heart size normal. No pneumothorax. No sizable effusion. No acute airspace disease. Right central line with tip cavoatrial junction. No acute bony abnormality. IMPRESSION: No acute pulmonary disease.. This document is electronically signed by Jere Messer MD., June 07 2018 05:03:06 PM ET
[2018-06-07 17:10] LABS: Albumin 4.6 g/dL (3.9-5); Calcium 9.8 mg/dL (8.4-10.2)
[2018-06-07] MEDS ORDERED: DILAUDID IV ONE (17:30)
[2018-06-07 17:36] LABS: Bilirubin,Urine NEG (Negative); Blood,Urine NEG (Negative); Color,Urine Yellow (Yellow); Protein,Urine <15 mg/dL mg/dL (Negative); RBC,Urine < 1.0 /HPF (0.0-6.0); Urobilinogen,Urine < 2.0 mg/dL (<2.0); WBC,Urine < 1.0 /HPF (0.0-6.0)
[2018-06-07] MEDS ORDERED: TYLENOL PO ONE (17:58)
[2018-06-07] MEDS ORDERED: LEVAQUIN 750MG/150ML 750 MG/150 ML BAG IV ONE (18:00)
--- NOTE | 2018-06-07 19:21 | Cat Scan Report ---
PROCEDURE: CT ANGIO CHEST TECHNIQUE: Following administration of IV contrast axial helical imaging was performed through the c hest with sagittal and coronal reformatted images and maximum intensity projection images obtained. HISTORY: shortness of breath, tachycardia COMPARISONS: X-ray chest also performed today and CT chest dated October 19, [address] abdomen and pel vis dated January 28, 2018. FINDINGS: There is no evidence of infiltrate, pneumothorax or pleural fluid collection. There is a pleural-based focal area of pulmonary consolidation that is not significantly changed sinc e the previous study of October 20, 2017 and measures approximately 1.6 cm in the maximal axial dimensio n. The heart is normal size. The thoracic aorta is normal caliber. There is no evidence of intrathoracic adenopathy. No filling defects are demonstrated within the pulmonary arteries to suggest the presence of pulmonar y artery emboli. The visualized portion of the upper abdomen is notable for a percutaneous gastrostomy tube with the t ip in the stomach. There are mildly prominent lymph nodes in the region of the celiac axis and peripancreatic region juan t are also demonstrated on the CT abdomen and pelvis dated January 28, 2018. The bony structures are unremarkable. There are bilateral breast prostheses are unremarkable in appearance. IMPRESSION: 1. No evidence of an acute intrathoracic process. 2. No evidence of pulmonary artery emboli. 3. No significant change in pleural-based nodular consolidation anterior aspect left upper lobe. 4. Percutaneous gastrostomy tube with tip in the stomach. This document is electronically signed by Laure Diop MD., June 07 2018 07:19:03 PM ET
--- NOTE | 2018-06-07 21:19 | History and Physical Report ---
History of Present Illness Date of examination: 06/07/18 Chief complaint: Fever or chills body aches nausea and vomiting since last night History of present illness: The patient is a 42-year-old female presented with history of gastroparesis and diabetes not on medication and nothing by mouth for 3 years presents to the ED chief complaint of fever and body aches. The patient says yesterday she developed nausea and vomiting. Last night she states she developed a fever 104F as well as shaking chills and body aches Patient states she's had dysuria for 1 day. Patient denies hematuria but states her urine has been orange in color. Patient denies diarrhea. Patient admits to diffuse body aches. She also stated that recently about 2 weeks ago she was diagnosed with DVT in the right arm and was started on Lovenox subcutaneous every 12 hours. Details not known. She was found to have elevated lactic acid and quite tachycardic and she is being admitted with suspected sepsis Past History Past Medical History: diabetes, DVT, GERD, other (gastroparesis) Past Surgical History: hysterectomy, Other (G-tube, J-tube, [id number] placement in the left chest and Ramirez catheter in the right chest) Social history: no significant social history Family history: no significant family history Medications and Allergies Allergies Allergy/AdvReac Type Severity Reaction Status Date / Time ketorolac [From Toradol] Allergy Swelling Verified 06/07/18 16:06 metoclopramide [From Reglan] Allergy Unknown Verified 06/07/18 16:06 Penicillins Allergy Swelling Verified 06/07/18 16:06 prochlorperazine Allergy Unknown Verified 06/07/18 16:06 [From Compazine] promethazine [From Phenergan] Allergy Swelling Verified 06/07/18 16:06 tramadol Allergy Swelling Verified 06/07/18 16:06 adhesive tape AdvReac Itching Verified 06/07/18 16:06 Home Medications Medication Instructions Recorded Confirmed Last Taken Type Ondansetron [Zofran ODT TAB] 4 mg PO Q4HR PRN 03/04/18 06/07/18 04/03/18 History 4mg Clindamycin [Clindamycin CAP] 300 mg PO Q8H #21 cap 04/03/18 06/07/18 04/03/18 Rx 300mg HYDROcodone/APAP 5-325 [[place] 1 each PO BID PRN #10 tablet 04/15/18 06/07/18 Unknown Rx 5-325 mg TAB] Active Meds: Active Medications Acetaminophen (Tylenol) 650 mg PO Q4H PRN PRN Reason: Pain MILD(1-3)/Fever >100.5/GONZALEZ Dextrose (D50w (25gm) Syringe) 50 ml IV PRN PRN PRN Reason: Hypoglycemia Enoxaparin Sodium (Lovenox) 70 mg 1 mg/kg (70 mg) SUB-Q Q12HR HERI Levofloxacin/Dextrose (Levaquin 750mg/150ml) 750 mg in 150 mls @ 100 mls/hr IV Q24HR HERI; Protocol Sodium Chloride (Nacl 0.9% 1000 Ml) 1,000 mls @ 125 mls/hr IV DIRECT HERI Vancomycin HCl (Vancomycin/Ns 1 Gm/250 Ml) 1 gm in 250 mls @ 167.007 mls/hr IV Q12H HERI; Protocol Morphine Sulfate (Morphine) 2 mg IV Q4H PRN PRN Reason: Pain, Moderate (4-6) Ondansetron HCl (Zofran) 4 mg IV Q8H PRN PRN Reason: Nausea And Vomiting Sodium Chloride (Sodium Chloride Flush Syringe 10 Ml) 10 ml IV BID HERI Sodium Chloride (Sodium Chloride Flush Syringe 10 Ml) 10 ml IV PRN PRN PRN Reason: LINE FLUSH Review of Systems Constitutional: fever, chills, sweats, weakness, no weight loss Ears, nose, mouth and throat: no ear pain, no nasal congestion, no sore throat Cardiovascular: no chest pain, no dyspnea on exertion Respiratory: no cough, no shortness of breath Gastrointestinal: nausea, vomiting, no abdominal pain, no diarrhea, no coffee ground emesis, no melena Genitourinary Female: no dysuria, no urinary frequency Rectal: no pain Musculoskeletal: no neck pain Integumentary: no rash Neurological: no head injury, no vertigo, no convulsions Exam - Constitutional Vitals: Temp Pulse Resp BP Pulse Ox 99.4 F 101 H 19 94/58 98 06/07/18 19:44 06/07/18 20:35 06/07/18 20:35 06/07/18 20:35 06/07/18 20:35 General appearance: Present: mild distress, well-nourished, other - EENT Eyes: Present: PERRL, EOM intact ENT: hearing intact, clear oral mucosa - Neck Neck: Present: supple, normal ROM. Absent: masses or JVD - Respiratory Respiratory effort: normal Respiratory: bilateral: CTA, diminished - Cardiovascular Rhythm: other (tachycardiac) Heart Sounds: Present: S1 & S2 - Extremities Extremities: No edema - Abdominal General gastrointestinal: Present: soft, non-tender. Absent: hepatomegaly, splenomegaly Female genitourinary: Present: deferred - Rectal Rectal Exam: deferred - Integumentary Integumentary: Present: clear - Musculoskeletal Musculoskeletal: strength equal bilaterally - Psychiatric Psychiatric: appropriate mood/affect - Neurologic Neurologic: no focal deficits Results - Labs CBC & Chem 7: 06/07/18 16:26 06/07/18 16:26 Labs: Abnormal lab results 06/07/18 06/07/18 06/07/18 Range/Units 16:26 16:26 16:26 Lymph % (Auto) 5.0 L (13.4-35.0) % Lymph # 0.4 L (1.2-5.4) K/mm3 Seg Neutrophils % 87.6 H (40.0-70.0) % Carbon Dioxide 19 L (22-30) mmol/L Glucose 109 H (65-100) mg/dL Lactic Acid 4.60 H* (0.7-2.0) mmol/L AST 48 H (5-40) units/L ALT 78 H (7-56) units/L Alkaline Phosphatase 161 H (35-129) units/L Total Protein 8.4 H (6.3-8.2) g/dL 06/07/18 Range/Units 17:40 Lymph % (Auto) (13.4-35.0) % Lymph # (1.2-5.4) K/mm3 Seg Neutrophils % (40.0-70.0) % Carbon Dioxide (22-30) mmol/L Glucose (65-100) mg/dL Lactic Acid 4.00 H* (0.7-2.0) mmol/L AST (5-40) units/L ALT (7-56) units/L Alkaline Phosphatase (35-129) units/L Total Protein (6.3-8.2) g/dL Assessment and Plan - Patient Problems (1) Sepsis Current Visit: Yes Status: Acute Qualifiers: Sepsis type: sepsis due to unspecified organism Qualified Code(s): A41.9 - Sepsis, unspecified organism Plan to address problem: Sepsis pathway initiated Blood and urine cultures obtained Serial lactic acid levels IV fluids Start the patient on empiric therapy with vancomycin and Levaquin Rule out line sepsis secondary to Ramirez catheter ID consult (2) History of diabetic gastroparesis Current Visit: Yes Status: Chronic Plan to address problem: Patient states that she has been nothing by mouth for the past 3 years and on TPN for the past 2 years she also gets TPN alternating with tube feedings Daily. We will request nutrition consult History of diagnosis is confusing at this time She denies ever taking insulin or oral hypoglycemic agents and apparently she gonzalez s mostly low blood sugars and checks her blood sugars several times a day (3) DVT (deep venous thrombosis) Current Visit: Yes Status: Acute Qualifiers: DVT location: upper extremity Chronicity: acute Laterality: right Plan to address problem: Patient states that she was diagnosed with DVT in the right arm close to her shoulder Details are not known but she is taking Lovenox every 12 hour sq (4) GERD (gastroesophageal reflux disease) Current Visit: Yes Status: Chronic Plan to address problem: We will start on Pepcid IV twice a day (5) Metabolic acidosis Current Visit: Yes Status: Acute Plan to address problem: Mild and most likely secondary to sepsis We'll monitor
[2018-06-07] MEDS ORDERED: TYLENOL ONE (22:02)
[2018-06-07] MEDS: TYLENOL PO PRN (22:15)
[2018-06-07] MEDS: HumaLOG SUB-Q SCH (23:49)
[2018-06-08] MEDS: NACL 0.9% 1000 ML 1,000 ML IV SCH ×2 (01:02→12:22)
[2018-06-08] MEDS: VANCOMYCIN/NS 1 GM/250 ML 1 GM/250 ML BAG IV SCH ×3 (01:07→23:13)
[2018-06-08] MEDS: PEPCID IV SCH ×3 (01:11→23:17)
[2018-06-08] MEDS: LOVENOX SUB-Q SCH ×3 (01:11→23:17)
[2018-06-08] MEDS: SODIUM CHLORIDE FLUSH SYRINGE 10 ML IV SCH ×3 (01:12→22:00)
[2018-06-08] MEDS: MORPHINE IV PRN ×5 (01:27→21:22)
[2018-06-08] MEDS: HumaLOG SUB-Q SCH ×6 (03:34→22:00)
[2018-06-08 06:09] LABS: Basophils % (Auto) 0.4 % (0.0-1.8); Eosinophils % (Auto) 0.1 % (0.0-4.3); Hematocrit 32.9 % (30.3-42.9); Lymphocytes # (Auto) 0.9 K/mm3 (1.2-5.4); Lymphocytes % (Auto) 17.8 % (13.4-35.0); Mean Corpuscular HGB Conc 33 % (30-34); Mean Corpuscular Volume 91 fl (79-97); Monocytes # (Auto) 0.4 K/mm3 (0.0-0.8); Monocytes % (Auto) 7.6 % (0.0-7.3); Platelet Count 150 K/mm3 (140-440); Red Blood Count 3.63 M/mm3 (3.65-5.03); Red Cell Distribution Width 14.1 % (13.2-15.2)
[2018-06-08 06:24] LABS: BUN/Creatinine Ratio 5; Blood Urea Nitrogen 4 mg/dL (7-17); Calcium 8.4 mg/dL (8.4-10.2); Hemolysis Index 2
[2018-06-08] MEDS: TYLENOL PO PRN (07:51)
[2018-06-08] MEDS: LEVAQUIN 750MG/150ML 750 MG/150 ML BAG IV SCH (10:15)
--- NOTE | 2018-06-08 10:25 | Progress Note ---
Assessment and Plan /Possible Sepsis/SIRS so far no clear etiology Sepsis pathway initiated Blood and urine cultures obtained - pending result Serial lactic acid levels, IV fluids Started the patient on empiric therapy with vancomycin and Levaquin need to Rule out line sepsis secondary to Hodge catheter, ID consulted /History of diabetic gastroparesis Patient states that she has been nothing by mouth for the past 3 years and on TPN for the past 2 years she also gets TPN alternating with tube feedings Daily. Nutrition consult requested She denies ever taking insulin or oral hypoglycemic agents cont to monitor BG with SSI / DVT (deep venous thrombosis) Patient states that she was diagnosed with DVT in the right arm close to her shoulder Details are not known but she is taking Lovenox every 12 hour sq - will cont / GERD (gastroesophageal reflux disease) Cont on Pepcid IV twice a day / Metabolic acidosis Mild and most likely secondary to sepsis, We'll monitor, cont Iv fluid Brief History: The patient is a 42-year-old female presented with history of gastroparesis and diabetes not on medication and nothing by mouth for 3 years presents to the ED chief complaint of fever and body aches. CTA chest: 1. No evidence of an acute intrathoracic process. 2. No evidence of pulmonary artery emboli. 3. No significant change in pleural-based nodular consolidation anterior aspect left upper lobe. 4. Percutaneous gastrostomy tube with tip in the stomach. CXR: No acute pulmonary disease.. Subjective Date of service: 06/08/18 Interval history: Patient seen and examined c/o pain at the hodge catheter site, afebrile, pending Cx Objective - Constitutional Vitals: Vital Signs - 12hr 06/07/18 06/08/18 06/08/18 22:30 01:15 03:19 Temperature Pulse Rate 90 Respiratory 20 Rate Blood Pressure 108/68 Blood Pressure 118/67 [Left] O2 Sat by Pulse 98 Oximetry 06/08/18 05:02 Temperature 98.0 F Pulse Rate 95 H Respiratory 20 Rate Blood Pressure 89/44 Blood Pressure [Left] O2 Sat by Pulse 98 Oximetry General appearance: Present: no acute distress, well-nourished - EENT Eyes: PERRL, EOM intact ENT: hearing intact, clear oral mucosa Ears: bilateral: normal - Neck Neck: supple, normal ROM - Respiratory Respiratory effort: normal Respiratory: bilateral: CTA - Cardiovascular Rhythm: regular Heart Sounds: Present: S1 & S2. Absent: gallop, rub Details: tender on the right side of the chest on the catheter area Extremities: pulses intact, No edema, normal color, Full ROM - Gastrointestinal General gastrointestinal: Present: soft, non-tender, non-distended, normal bowel sounds - Integumentary Integumentary: clear, warm, dry - Musculoskeletal Musculoskeletal: 1, strength equal bilaterally - Neurologic Neurologic: moves all extremities - Psychiatric Psychiatric: memory intact, appropriate mood/affect, intact judgment & insight - Labs CBC & Chem 7: 06/08/18 05:45 06/09/18 06:05 Labs: Abnormal lab results 06/07/18 06/07/18 06/07/18 Range/Units 16:26 16:26 16:26 RBC (3.65-5.03) M/mm3 Lymph % (Auto) 5.0 L (13.4-35.0) % [place] % (Auto) (0.0-7.3) % Lymph # 0.4 L (1.2-5.4) K/mm3 Seg Neutrophils % 87.6 H (40.0-70.0) % Carbon Dioxide 19 L (22-30) mmol/L BUN (7-17) mg/dL Glucose 109 H (65-100) mg/dL Lactic Acid 4.60 H* (0.7-2.0) mmol/L AST 48 H (5-40) units/L ALT 78 H (7-56) units/L Alkaline Phosphatase 161 H (35-129) units/L Total Protein 8.4 H (6.3-8.2) g/dL 06/07/18 06/08/18 06/08/18 Range/Units 17:40 00:28 05:45 RBC 3.63 L (3.65-5.03) M/mm3 Lymph % (Auto) (13.4-35.0) % [place] % (Auto) 7.6 H (0.0-7.3) % Lymph # 0.9 L (1.2-5.4) K/mm3 Seg Neutrophils % 74.1 H (40.0-70.0) % Carbon Dioxide (22-30) mmol/L BUN (7-17) mg/dL Glucose (65-100) mg/dL Lactic Acid 4.00 H* 0.60 L (0.7-2.0) mmol/L AST (5-40) units/L ALT (7-56) units/L Alkaline Phosphatase (35-129) units/L Total Protein (6.3-8.2) g/dL 03// Range/Units 05:45 RBC (3.65-5.03) M/mm3 Lymph % (Auto) (13.4-35.0) % [place] % (Auto) (0.0-7.3) % Lymph # (1.2-5.4) K/mm3 Seg Neutrophils % (40.0-70.0) % Carbon Dioxide (22-30) mmol/L BUN 4 L (7-17) mg/dL Glucose (65-100) mg/dL Lactic Acid (0.7-2.0) mmol/L AST (5-40) units/L ALT (7-56) units/L Alkaline Phosphatase (35-129) units/L Total Protein (6.3-8.2) g/dL - Imaging and cardiology Chest x-ray: report reviewed CT scan - chest: report reviewed
[2018-06-08] MEDS: ZOFRAN IV PRN (15:42)
[2018-06-08] MEDS: D50W (25GM) Syringe IV PRN ×2 (15:43→18:14)
[2018-06-08] MEDS: TYLENOL #3 PO PRN (18:25)
[2018-06-08] MEDS ORDERED: TPN ADULT 2,400 ML IV SCH (20:00)
[2018-06-09] MEDS: HumaLOG SUB-Q SCH ×6 (02:00→22:19)
[2018-06-09] MEDS: MORPHINE IV PRN ×4 (02:28→21:04)
[2018-06-09] MEDS: ZOFRAN IV PRN ×3 (02:28→15:43)
[2018-06-09 06:42] LABS: BUN/Creatinine Ratio 8; Blood Urea Nitrogen 6 mg/dL (7-17); Calcium 8.4 mg/dL (8.4-10.2); Hemolysis Index 2
[2018-06-09] MEDS: VANCOMYCIN/NS 1 GM/250 ML 1 GM/250 ML BAG IV SCH (10:06)
[2018-06-09] MEDS: LEVAQUIN 750MG/150ML 750 MG/150 ML BAG IV SCH (10:06)
[2018-06-09] MEDS: LOVENOX SUB-Q SCH ×2 (10:07→22:19)
[2018-06-09] MEDS: PEPCID IV SCH ×2 (10:07→22:24)
[2018-06-09] MEDS: SODIUM CHLORIDE FLUSH SYRINGE 10 ML IV SCH ×2 (10:09→22:20)
[2018-06-09] MEDS: TYLENOL #3 PO PRN (11:27)
--- NOTE | 2018-06-09 11:27 | Consultation ---
History of Present Illness - Reason for Consult Consult date: 06/09/18 Pain at catheter - History of Present Illness 42-year-old female presented with history of gastroparesis and diabetes not on medication and nothing by mouth for 3 years presents to the ED chief complaint of fever and body aches. The patient says saturday she developed nausea and vomiting, fever, shaking chills and body aches. Reports dysuria. Patient denies diarrhea. Patient admits to diffuse body aches. She also stated that recently about 3 weeks ago she was diagnosed with DVT in the right arm and was initially started on Eliquis and then transitioned to Lovenox subcutaneous every 12 hours due to DVT progression to the chest veins. She has swelling of her right arm, and head and neck. She also had syncopal ted nts when she bends over and gets a headache when she bends over. No headache or syncope when not bending over. Patient has palpable pulses in her radial ulnar arteries. Her right tunneled catheter was evaluated and she has an exit site infection. Wound cultured. BCx NGTD. Past History Past Medical History: diabetes, DVT, GERD, other (gastroparesis) Past Surgical History: hysterectomy, Other (G-tube, J-tube, [id number] placem ent in the left chest and Ramirez catheter in the right chest) Social history: no significant social history Family history: no significant family history Medications and Allergies Allergies Allergy/AdvReac Type Severity Reaction Status Date / Time ketorolac [From Toradol] Allergy Swelling Verified 06/07/18 16:06 metoclopramide [From Reglan] Allergy Unknown Verified 06/07/18 16:06 Penicillins Allergy Swelling Verified 06/07/18 16:06 prochlorperazine Allergy Unknown Verified 06/07/18 16:06 [From Compazine] promethazine [From Phenergan] Allergy Swelling Verified 06/07/18 16:06 tramadol Allergy Swelling Verified 06/07/18 16:06 adhesive tape AdvReac Itching Verified 06/07/18 16:06 Home Medications Medication Instructions Recorded Confirmed Last Taken Type Ondansetron [Zofran ODT TAB] 4 mg PO Q4HR PRN 03/04/18 06/07/18 04/03/18 History 4mg Clindamycin [Clindamycin CAP] 300 mg PO Q8H #21 cap 04/03/18 06/07/18 04/03/18 Rx 300mg HYDROcodone/APAP 5-325 [[place] 1 each PO BID PRN #10 tablet 04/15/18 06/07/18 Unknown Rx 5-325 mg TAB] Active Meds: Active Medications Acetaminophen/Codeine Phosphate (Tylenol #3) 1 tab PO Q4H PRN PRN Reason: Pain, Moderate (4-6) Last Admin: 06/08/18 18:25 Dose: 1 tab Documented by: Dextrose (D50w (25gm) Syringe) 50 ml IV PRN PRN PRN Reason: Hypoglycemia Last Admin: 06/08/18 18:14 Dose: 50 ml Documented by: Enoxaparin Sodium (Lovenox) 70 mg SUB-Q Q12HR HERI Last Admin: 06/09/18 10:07 Dose: 70 mg Documented by: Famotidine (Pepcid) 20 mg IV Q12H HERI Last Admin: 06/09/18 10:07 Dose: 20 mg Documented by: Levofloxacin/Dextrose (Levaquin 750mg/150ml) 750 mg in 150 mls @ 100 mls/hr IV Q24HR HERI; Protocol Last Admin: 06/09/18 10:06 Dose: 100 mls/hr Documented by: Vancomycin HCl (Vancomycin/Ns 1 Gm/250 Ml) 1 gm in 250 mls @ 167.007 mls/hr IV Q12H HERI; Protocol Last Admin: 06/09/18 10:06 Dose: 167.007 mls/hr Documented by: Amino Acids/Electrolytes/Dextrose (Tpn Adult) 2,400 mls @ 100 mls/hr IV DAILY@1999 HERI; Protocol Stop: 06/09/18 19:59 Last Admin: 06/08/18 20:34 Dose: 100 mls/hr Documented by: Insulin Human Lispro (Humalog) 0 unit SUB-Q Q4HR HERI; Protocol Last Admin: 06/09/18 10:08 Dose: Not Given Documented by: Morphine Sulfate (Morphine) 2 mg IV Q4H PRN PRN Reason: Pain, Moderate (4-6) Last Admin: 06/09/18 08:12 Dose: 2 mg Documented by: Ondansetron HCl (Zofran) 4 mg IV Q8H PRN PRN Reason: Nausea And Vomiting Last Admin: 06/09/18 08:12 Dose: 4 mg Documented by: Sodium Chloride (Sodium Chloride Flush Syringe 10 Ml) 10 ml IV BID HERI Last Admin: 06/09/18 10:09 Dose: 10 ml Documented by: Sodium Chloride (Sodium Chloride Flush Syringe 10 Ml) 10 ml IV PRN PRN PRN Reason: LINE FLUSH Review of Systems All systems: negative (see HPI) Exam - Constitutional Vitals: Temp Pulse Resp BP Pulse Ox 99.4 F 94 H 20 92/46 95 06/09/18 04:45 06/09/18 04:45 06/09/18 04:45 06/09/18 04:45 06/09/18 04:45 General appearance: Present: mild distress (right chest discomfort, right arm discomfort) - EENT Eyes: Present: EOM intact ENT: hearing intact - Neck Neck: Present: other (purulent material at exit site, erythema at exit site, no pain along tract, some discomfort at the venotomy site) - Respiratory Respiratory effort: normal - Psychiatric Psychiatric: appropriate mood/affect, cooperative Results - Labs CBC & Chem 7: 06/08/18 05:45 06/09/18 06:05 Labs: Abnormal lab results 06/08/18 06/08/18 06/08/18 Range/Units 16:35 18:14 18:57 BUN (7-17) mg/dL Glucose (65-100) mg/dL POC Glucose 110 H 48 L 123 H (70-105) Triglycerides (2-149) mg/dL 06/09/18 Range/Units 06:05 BUN 6 L (7-17) mg/dL Glucose 107 H (65-100) mg/dL POC Glucose (70-105) Triglycerides 190 H (2-149) mg/dL Assessment and Plan 42-year-old female who presents with right chest exit site infection with history of fever and chills with catheter usage. Suspect she has intermittent bacteremia from tunneled catheter and hasn't exit site infection. CT scans demonstrates occlusion of the right subclavian, and innominate vein. Possible involvement of the left innominate vein and part of the SVC. Has a history of SVC stenosis. Patient also has DVT with significant central symptoms with SVC syndrome. Sent off wound culture of drainage at exit site. Plan for right groin access venography of the chest pains to assess thrombus, thrombectomy of the involved veins, and then either PermCath cut down and re- tunneling of the right chest catheter or left IJ catheter placement if central veins allow this to be performed.
[2018-06-09] MEDS: MAXIPIME/NS 2 GM/100 ML 2 GM/100 ML BAG IV SCH ×2 (15:43→22:28)
--- NOTE | 2018-06-09 15:43 | Progress Note ---
Assessment and Plan /Possible Sepsis/SIRS Possible from bacteremia associated with Hodge catheter ID and vascular surgeon consulted Sepsis pathway initiated Blood and urine cultures obtained - pending result Serial lactic acid levels, IV fluids Started the patient on empiric therapy with vancomycin and Levaquin - will change to cefepime /History of diabetic gastroparesis Patient states that she has been nothing by mouth for the past 3 years and on TPN for the past 2 years she also gets TPN alternating with tube feedings Daily. Nutrition consult requested She denies ever taking insulin or oral hypoglycemic agents cont to monitor BG with SSI / DVT (deep venous thrombosis) Patient states that she was diagnosed with DVT in the right arm close to her shoulder Details are not known but she is taking Lovenox every 12 hour sq - will cont / GERD (gastroesophageal reflux disease) Cont on Pepcid IV twice a day / Metabolic acidosis Mild and most likely secondary to sepsis, We'll monitor, cont Iv fluid Brief History: The patient is a 42-year-old female presented with history of gastroparesis and diabetes not on medication and nothing by mouth for 3 years presents to the ED chief complaint of fever and body aches. CTA chest: 1. No evidence of an acute intrathoracic process. 2. No evidence of pulmonary artery emboli. 3. No significant change in pleural-based nodular consolidation anterior aspect left upper lobe. 4. Percutaneous gastrostomy tube with tip in the stomach. CXR: No acute pulmonary disease.. Physical exam: General appearance: Present: no acute distress, well-nourished - EENT Eyes: PERRL, EOM intact ENT: hearing intact, clear oral mucosa Ears: bilateral: normal - Neck Neck: supple, normal ROM - Respiratory Respiratory effort: normal Respiratory: bilateral: CTA - Cardiovascular Rhythm: regular Heart Sounds: Present: S1 & S2. Absent: gallop, rub Details: tender on the right side of the chest on the catheter area Extremities: pulses intact, No edema, normal color, Full ROM - Gastrointestinal General gastrointestinal: Present: soft, non-tender, non-distended, normal bowel sounds - Integumentary Integumentary: clear, warm, dry - Musculoskeletal Musculoskeletal: 1, strength equal bilaterally - Neurologic Neurologic: moves all extremities - Psychiatric Psychiatric: memory intact, appropriate mood/affect, intact judgment & insight Subjective Date of service: 06/09/18 Interval history: Patient seen and examined c/o pain at the hodge catheter site, afebrile, pending final blood Cx Vascular surgeon consulted Objective - Constitutional Vitals: Vital Signs - 12hr 06/09/18 06/09/18 04:45 12:39 Temperature 99.4 F 98.4 F Pulse Rate 94 H 83 Respiratory 20 16 Rate Blood Pressure 92/46 107/60 O2 Sat by Pulse 95 97 Oximetry - Labs CBC & Chem 7: 06/08/18 05:45 06/10/18 04:45 Labs: Abnormal lab results 06/08/18 06/08/18 06/08/18 Range/Units 16:35 18:14 18:57 BUN (7-17) mg/dL Glucose (65-100) mg/dL POC Glucose 110 H 48 L 123 H (70-105) Triglycerides (2-149) mg/dL 06/09/18 06/09/18 Range/Units 06:05 14:54 BUN 6 L (7-17) mg/dL Glucose 107 H (65-100) mg/dL POC Glucose 114 H (70-105) Triglycerides 190 H (2-149) mg/dL
--- NOTE | 2018-06-09 16:20 | Consultation ---
History of Present Illness - Reason for Consult Consult date: 06/09/18 Sepsis Requesting physician: HEMAL HAMILTON - History of Present Illness This patient is a 42 year old female known to ID with a past medial history of diabetes type 2, severe gastropparesis, s/p Port a cath placement for TPN, J- tube and G-tube placement. Previous infected port a cath for TPN associated with sepsis with septic shock due to Klebsiella bacteremia. Klebsiella oxytoca bacteremia was 6 of 6 bottles positive on 09/02, blood cx 09/03 neg. Port-A-cath s/p removal on 09/04/17. She then developed a chest wall collection. CT chest showed a collection 2.6x2.5x1.6 cm with a small bubble of air s/p bediside I +D. Port cx + Stenotrophomona maltophilia. She was treated with Levaquin 750 mg IV qday for 2 weeks until 09/22/17 via a new PICC line to her right arm.On 01/27/18 Emma claire was readmitted and blood cultures grew MSSA bateremia, likely from PICC site infection/thrombus. PICC line was removed and a right Ramirez cath was placed. .She was discharged on vancomycin 1 gm IV every 12 hours until 02/23/18. The patient now presents to the ED on 06/07/18 with nausea, vomiting, fevers and redness around her J tube and foul odor and swelling to her Ramirez site. Patient states that she has had dysuria for 1 day. Upon further evaluation, she states that she was diagnosed with a DVT in the right arm 3 weeks ago and was started on lovenox subcutaneous every 12 hours. On admission WBC 4.9, Creatinine 0.8, lactic Acid 4.6, Temperature 100.4, HR 127, BP 115/63, U/A was not consistent with a UTI, Influenza rapid was negative. Blood cultures were drawn and show GNR, 1 out of 4 bottles. Review of Systems: General: + fever, chills on admission Cutaneous: no rash, pruritus Head: no headaches or injury Eyes: no changes in vision, eye pain, double vision Ears: no ear pain, ear discharge, ringing or hearing loss Nose: no nose bleeding, stuffiness Mouth & throat: no bleeding gums, no horseness, no dental problems, or swollen glands Neck: no pain, node enlargement/lumps, +tenderness RIght Ramirez Cath Respiratory: no cough, wheezing, sputum, hemoptysis, pleuritic chest pain Cardiovascular: no chest pain, leg edema, cyanosis, EAST, orthopnea Musculoskeletal: no decreased joint motion, bone or joint pain, joint swelling, muscle aches Gastrointestinal: + nausea,, no vomiting, hematemesis, diarrhea, constipation, melena, bright red blood in stools, fecal incontinence, jaundice Genitourinary/Reproductive: no frequent urination, no dysuria, hematuria, incontinence Neurogical: no seizures, no headaches, no weakness, no paresthesias, Psychiatric: stable mood; no excessive anxiety, sadness or moodiness Past History Past Medical History: diabetes, DVT, GERD, other (gastroparesis) Past Surgical History: hysterectomy, Other (G-tube, J-tube, Virsft-m-Medd placement in the left chest and Ramirez catheter in the right chest) Social history: no significant social history Family history: no significant family history Medications and Allergies Allergies Allergy/AdvReac Type Severity Reaction Status Date / Time ketorolac [From Toradol] Allergy Swelling Verified 06/07/18 16:06 metoclopramide [From Reglan] Allergy Unknown Verified 06/07/18 16:06 Penicillins Allergy Swelling Verified 06/07/18 16:06 prochlorperazine Allergy Unknown Verified 06/07/18 16:06 [From Compazine] promethazine [From Phenergan] Allergy Swelling Verified 06/07/18 16:06 tramadol Allergy Swelling Verified 06/07/18 16:06 adhesive tape AdvReac Itching Verified 06/07/18 16:06 Apple Allergy Swelling Uncoded 06/09/18 15:36 Sour cream Allergy Swelling Uncoded 06/09/18 15:36 Whip cream Allergy Swelling Uncoded 06/09/18 15:36 Home Medications Medication Instructions Recorded Confirmed Last Taken Type Ondansetron [Zofran ODT TAB] 4 mg PO Q4HR PRN 03/04/18 06/07/18 04/03/18 History 4mg Clindamycin [Clindamycin CAP] 300 mg PO Q8H #21 cap 04/03/18 06/07/18 04/03/18 Rx 300mg HYDROcodone/APAP 5-325 [[place] 1 each PO BID PRN #10 tablet 04/15/18 06/07/18 Unknown Rx 5-325 mg TAB] Active Meds: Active Medications Acetaminophen/Codeine Phosphate (Tylenol #3) 1 tab PO Q4H PRN PRN Reason: Pain, Moderate (4-6) Last Admin: 06/09/18 11:27 Dose: 1 tab Documented by: Dextrose (D50w (25gm) Syringe) 50 ml IV PRN PRN PRN Reason: Hypoglycemia Last Admin: 06/08/18 18:14 Dose: 50 ml Documented by: Enoxaparin Sodium (Lovenox) 70 mg SUB-Q Q12HR HERI Last Admin: 06/09/18 10:07 Dose: 70 mg Documented by: Famotidine (Pepcid) 20 mg IV Q12H HERI Last Admin: 06/09/18 10:07 Dose: 20 mg Documented by: Amino Acids/Electrolytes/Dextrose (Tpn Adult) 2,400 mls @ 100 mls/hr IV DAILY@2000 HERI; Protocol Stop: 06/09/18 19:59 Last Admin: 06/08/18 20:34 Dose: 100 mls/hr Documented by: Amino Acids/Electrolytes/Dextrose (Tpn Adult) 2,400 mls @ 100 mls/hr IV DAILY@2000 HERI; Protocol Stop: 06/10/18 19:59 Cefepime HCl (Maxipime/Ns 2 Gm/100 Ml) 2 gm in 100 mls @ 200 mls/hr IV Q12HR HERI; Protocol Last Admin: 06/09/18 15:43 Dose: 200 mls/hr Documented by: Dextrose/Sodium Chloride (D5ns) 1,000 mls @ 42 mls/hr IV DIRECT HERI Insulin Human Lispro (Humalog) 0 unit SUB-Q Q4HR HERI; Protocol Last Admin: 06/09/18 15:15 Dose: Not Given Documented by: Morphine Sulfate (Morphine) 2 mg IV Q4H PRN PRN Reason: Pain, Moderate (4-6) Last Admin: 06/09/18 15:43 Dose: 2 mg Documented by: Ondansetron HCl (Zofran) 4 mg IV Q8H PRN PRN Reason: Nausea And Vomiting Last Admin: 06/09/18 15:43 Dose: 4 mg Documented by: Sodium Chloride (Sodium Chloride Flush Syringe 10 Ml) 10 ml IV BID HERI Last Admin: 06/09/18 10:09 Dose: 10 ml Documented by: Sodium Chloride (Sodium Chloride Flush Syringe 10 Ml) 10 ml IV PRN PRN PRN Reason: LINE FLUSH Physical Examination - Physical Exam Narrative exam: Constitutional: Alert, cooperative. No acute distress Head, Ears, Nose: Normocephalic, atraumatic. External ears, nose normal Eyes: Conjunctivae/corneas clear. No icterus. No ptosis. Neck: Supple, no meningeal signs, + right Ramirez Catheter, + tenderness Oral: dentition good, no thrush Cardiovascular: S1, S2 normal. Respiratory: Good air entry, clear to auscultation bilaterally GI: Soft, non-tender; bowel sounds normal. No peritoneal signs, + J tube Musculoskeletal: No pedal edema, no cyanosis. Skin: No rash or abscess. Dry skin Hem/Lymphatic: No palpable cervical or supraclavicular nodes. No lymphangitis Psych: Mood ok. Affect normal Neurological: Awake, alert, oriented. - Constitutional Vitals: Vital Signs Temp Pulse Resp BP Pulse Ox 98.4 F 83 16 107/60 97 06/09/18 12:39 06/09/18 12:39 06/09/18 12:39 06/09/18 12:39 06/09/18 12:39 Temperature -Last 24 Hours Temperature 98.4 F Temperature 99.4 F Temperature 99.6 F Temperature 32.1 F Temperature 97.7 F Results - Labs CBC & Chem 7: 06/08/18 05:45 06/09/18 06:05 Labs: Abnormal lab results 06/08/18 06/08/18 06/08/18 Range/Units 16:35 18:14 18:57 BUN (7-17) mg/dL Glucose (65-100) mg/dL POC Glucose 110 H 48 L 123 H (70-105) Triglycerides (2-149) mg/dL 06/09/18 06/09/18 Range/Units 06:05 14:54 BUN 6 L (7-17) mg/dL Glucose 107 H (65-100) mg/dL POC Glucose 114 H (70-105) Triglycerides 190 H (2-149) mg/dL Assessment and Plan Cultures: 06/07/18 Blood: GNR: 1 out of 4 bottles 06/07/18 Urine culture: 10-100K mixed culture of >2 organisms 06/09/18 Right Ramirez Cath: In progress A/P: 42-year-old patient known to ID with a past medcial history of diabetes type 2, severe gastropparesis, s/p Port a cath palacement for TPN, J-tube and G-tube placement. Previous infected port a cath for TPN associated with sepsis with septic shock due to Klebsiella bacteremia. Klebsiella oxytoca bacteremia was 6 of 6 bottles positive on 09/02, blood cx 09/03 neg. Port-A-cath s/p removal on 09/04/17. She then developed a chest wall collection. CT chest showed a collection 2.6x2.5x1.6 cm with a small bubble of air s/p bediside I +D. Port cx + Stenotrophomona maltophilia. She was treated with Levaquin 750 mg IV qday for 2 weeks until 09/22/17 via a new PICC line to her right arm. On 01/27/18 She was readmitted and blood cultures grew MSSA bateremia, likely from PICC site infection/thrombus. PICC line was removed and a right Ramirez catheter was pl aced. She was discharged home on Vancomycin 1 gm IV every 12 hours until 02/23/18. Now admitted with: 1.Sepsis on Admission; evidenced by fever, tachycardia, and elevated lactic acid. Etiology most likely DVT, Patient states that about 3 weeks ago she was diagnosed with a DVT in the right arm and was initially started on Eliquis and then transitioned to lovenox. Blood cultures were drawn and show GNR, 1 out of 4 bottles. U/A is negative for a UTI, Urine culture shows mixed culture of greater than 2 organisms. CXR shows no acute pulmonary disease. Chest CT show No si gnificant change in pleural-based nodular consolidation anterior aspect left upper lobe. 2. Gram Negative Romeo Bacteremia: 1 out of 4 bottles. Source unclear, Cultures obtained from Ramirez catheter are in progress. Currently being treated with Cefepime. 3. DVT Right Arm: CT scans demonstrates occlusion of the right subclavian, and innominate vein. Possible involvement of the left innominate vein and part of the SVC. Has a history of SVC stenosis. Patient also has DVT with significant central symptoms with SVC syndrome. Vascular following 4. Diabetic Gastroparesis: has had nothing by mouth for the past 3 years, on TPN for the past 2 years. Gets TPN alternating with tube feedings. Plan: -f/u Blood Cultures -f/u Ramirez Cath Cultures -Continue Cefepime 2gm IV every 12 hours -Repeat Blood Cultures D/W Dr. Curt Vidal, E [employer] [facility] M: [phone] O:[phone]
[2018-06-09] MEDS: D5NS 1,000 ML IV SCH (16:50)
[2018-06-09] MEDS ORDERED: TPN ADULT 2,400 ML IV SCH (20:00)
[2018-06-10] MEDS: ZOFRAN IV PRN ×2 (01:20→09:31)
[2018-06-10] MEDS: MORPHINE IV PRN ×4 (01:20→20:04)
[2018-06-10] MEDS: HumaLOG SUB-Q SCH ×6 (02:41→21:55)
[2018-06-10 07:01] LABS: INR 0.95 (0.87-1.13)
[2018-06-10 07:21] LABS: BUN/Creatinine Ratio 11; Blood Urea Nitrogen 9 mg/dL (7-17); Calcium 8.5 mg/dL (8.4-10.2); Hemolysis Index 6
[2018-06-10] MEDS: MAXIPIME/NS 2 GM/100 ML 2 GM/100 ML BAG IV SCH ×2 (09:26→21:55)
[2018-06-10] MEDS: LOVENOX SUB-Q SCH ×2 (09:28→21:55)
[2018-06-10] MEDS: SODIUM CHLORIDE FLUSH SYRINGE 10 ML IV SCH ×2 (09:29→21:55)
[2018-06-10] MEDS: PEPCID IV SCH ×2 (09:31→21:55)
--- NOTE | 2018-06-10 09:31 | Progress Note ---
Assessment and Plan Cultures: 06/07/18 Blood: GNR: 2 out of 4 bottles 06/07/18 Urine culture: 10-100K mixed culture of >2 organisms 06/09/18 Right Ramirez Cath: In progress 06/09/18 Blood: in progress A/P: 42-year-old patient known to ID with a past medcial history of diabetes type 2, severe gastropparesis, s/p Port a cath palacement for TPN, J-tube and G-tube placement. Previous infected port a cath for TPN associated with sepsis with septic shock due to Klebsiella bacteremia. Klebsiella oxytoca bacteremia was 6 of 6 bottles positive on 09/02, blood cx 09/03 neg. Port-A-cath s/p removal on 09/04/17. She then developed a chest wall collection. CT chest showed a collection 2.6x2.5x1.6 cm with a small bubble of air s/p bediside I +D. Port cx + Stenotrophomona maltophilia. She was treated with Levaquin 750 mg IV qday for 2 weeks until 09/22/17 via a new PICC line to her right arm. On 01/27/18 She was readmitted and blood cultures grew MSSA bateremia, likely from PICC site infection/thrombus. PICC line was removed and a right Ramirez catheter was placed. She was discharged home on Vancomycin 1 gm IV every 12 hours until 02/23/18. Now admitted with: 1.Sepsis on Admission; Resolved. Etiology most likely DVT, Patient states that about 3 weeks ago she was diagnosed with a DVT in the right arm and was initially started on Eliquis and then transitioned to lovenox. Blood cultures were drawn and show GNR, 1 out of 4 bottles. U/A is negative for a UTI, Urine culture shows mixed culture of greater than 2 organisms. CXR shows no acute pulmonary disease. Chest CT show No significant change in pleural-based nodular consolidation anterior aspect left upper lobe. 2. Gram Negative Bacteremia: 2 out of 4 bottles. Source unclear, Cultures obtained from Ramirez catheter are in progress. Currently being treated with Cefepime. New blood cultures ordered to ensure clearance, pending. 3. DVT Right Arm: CT scans demonstrates occlusion of the right subclavian, and innominate vein. Possible involvement of the left innominate vein and part of the SVC. Has a history of SVC stenosis. Patient also has DVT with significant central symptoms with SVC syndrome. Prefer to ensure bacteremia clearance prior to new line. Also, patient with extensive thrombus, if bacteremia persists, it could be suggestive of thrombus seeding and patient may need prolonged abx therapy. 4. Diabetic Gastroparesis: has had nothing by mouth for the past 3 years, on TPN for the past 2 years. Gets TPN alternating with tube feedings. Plan: -f/u Blood Cultures ID and DANG's -f/u Ramirez Cath Cultures -Continue Cefepime 2gm IV every 12 hours -f/u repeat blood cultures -CBC ordered for tomorrow [facility] M: [phone] O:[phone] Subjective Date of service: 06/10/18 Interval history: Patient seen and examined. Reports generalized weakness, continued right shoulder pain and weakness. No fevers. Objective - Exam Narrative Exam: Constitutional: Alert, cooperative. No acute distress Head, Ears, Nose: Normocephalic, atraumatic. External ears, nose normal Eyes: Conjunctivae/corneas clear. No icterus. No ptosis. Neck: Supple, no meningeal signs, + right Ramirez Catheter, + tenderness Oral: dentition good, no thrush Cardiovascular: S1, S2 normal. Respiratory: Good air entry, clear to auscultation bilaterally GI: Soft, non-tender; bowel sounds normal. No peritoneal signs, + J tube Musculoskeletal: No pedal edema, no cyanosis., +right arm tenderness Skin: No rash or abscess. Hem/Lymphatic: No palpable cervical or supraclavicular nodes. No lymphangitis Psych: Mood ok. Affect normal Neurological: Awake, alert, oriented. - Constitutional Vitals: Vital Signs Temp Pulse Resp BP Pulse Ox 98.4 F 80 18 123/71 97 06/10/18 06:31 06/10/18 06:31 06/10/18 06:31 06/10/18 06:31 06/10/18 06:31 Temperature -Last 24 Hours Temperature 98.4 F Temperature 97.6 F Temperature 98.4 F Temperature 98.4 F - Labs CBC & Chem 7: 06/08/18 05:45 06/10/18 04:45 Labs: Abnormal lab results 06/09/18 06/09/18 Range/Units 14:54 22:00 POC Glucose 114 H 123 H (70-105)
[2018-06-10] MEDS: TYLENOL #3 PO PRN ×2 (12:45→20:04)
--- NOTE | 2018-06-10 16:38 | Progress Note ---
Assessment and Plan /Sepsis with bacteremia, POA Possible from bacteremia associated with Hodge catheter ID and vascular surgeon consulted Sepsis pathway initiated Blood and urine cultures obtained - growing gm negative rods Serial lactic acid levels, IV fluids Started the patient on empiric therapy with vancomycin and Levaquin - now on cefepime /History of diabetic gastroparesis Patient states that she has been nothing by mouth for the past 3 years and on TPN for the past 2 years she also gets TPN alternating with tube feedings Daily. Nutrition consult requested She denies ever taking insulin or oral hypoglycemic agents cont to monitor BG / DVT (deep venous thrombosis) Diagnosed on last admission On Lovenox every 12 hour sq - will cont / Metabolic acidosis Mild and most likely secondary to sepsis, We'll monitor, cont Iv fluid /hypoglycemic event, D50 as needed, added d5/NS / GERD (gastroesophageal reflux disease) Cont on Pepcid IV twice a day Brief History: The patient is a 42-year-old female presented with history of gastroparesis and diabetes not on medication and nothing by mouth for 3 years presents to the ED chief complaint of fever and body aches. CTA chest: 1. No evidence of an acute intrathoracic process. 2. No evidence of pulmonary artery emboli. 3. No significant change in pleural-based nodular consolidation anterior aspect left upper lobe. 4. Percutaneous gastrostomy tube with tip in the stomach. CXR: No acute pulmonary disease.. Physical exam: General appearance: Present: no acute distress, well-nourished - EENT Eyes: PERRL, EOM intact ENT: hearing intact, clear oral mucosa Ears: bilateral: normal - Neck Neck: supple, normal ROM - Respiratory Respiratory effort: normal Respiratory: bilateral: CTA - Cardiovascular Rhythm: regular Heart Sounds: Present: S1 & S2. Absent: gallop, rub Details: tender on the right side of the chest on the catheter area Extremities: pulses intact, No edema, normal color, Full ROM - Gastrointestinal General gastrointestinal: Present: soft, non-tender, non-distended, normal bowel sounds - Integumentary Integumentary: clear, warm, dry - Musculoskeletal Musculoskeletal: 1, strength equal bilaterally - Neurologic Neurologic: moves all extremities - Psychiatric Psychiatric: memory intact, appropriate mood/affect, intact judgment & insight Subjective Date of service: 06/10/18 Interval history: Patient seen and examined c/o pain at the hodge catheter site, afebrile, pending final blood Cx Had hypoglycemic event responded to D50 Objective - Constitutional Vitals: Vital Signs - 12hr 06/10/18 06/10/18 06:31 12:13 Temperature 98.4 F 98.4 F Pulse Rate 80 83 Respiratory 18 16 Rate Blood Pressure 123/71 104/63 O2 Sat by Pulse 97 94 Oximetry - Labs CBC & Chem 7: 06/11/18 00:37 06/11/18 03:46 Labs: Abnormal lab results 06/09/18 Range/Units 22:00 POC Glucose 123 H (70-105)
[2018-06-10] MEDS: D50W (25GM) Syringe IV PRN (18:39)
[2018-06-10] MEDS ORDERED: TPN ADULT 2,400 ML IV SCH (20:00)
[2018-06-10] MEDS ORDERED: TYLENOL PO PRN (20:19)
[2018-06-11] MEDS ORDERED: TYLENOL PR PRN (00:02)
[2018-06-11] MEDS: MORPHINE IV PRN ×5 (00:09→20:17)
[2018-06-11] MEDS: ZOFRAN IV PRN ×2 (00:09→08:03)
[2018-06-11 01:21] LABS: Basophils % (Auto) 0.3 % (0.0-1.8); Hematocrit 29.7 % (30.3-42.9); Hemoglobin 9.9 gm/dl (10.1-14.3); Lymphocytes # (Auto) 1.1 K/mm3 (1.2-5.4); Lymphocytes % (Auto) 12.3 % (13.4-35.0); Mean Corpuscular HGB Conc 34 % (30-34); Mean Corpuscular Volume 89 fl (79-97); Monocytes % (Auto) 11.5 % (0.0-7.3); Platelet Count 174 K/mm3 (140-440); Red Blood Count 3.33 M/mm3 (3.65-5.03); Red Cell Distribution Width 13.9 % (13.2-15.2)
[2018-06-11] MEDS: HumaLOG SUB-Q SCH ×6 (03:00→22:18)
[2018-06-11 04:22] LABS: BUN/Creatinine Ratio 18; Blood Urea Nitrogen 14 mg/dL (7-17); Calcium 8.8 mg/dL (8.4-10.2); Hemolysis Index 1
[2018-06-11] MEDS: MAXIPIME/NS 2 GM/100 ML 2 GM/100 ML BAG IV SCH (09:18)
[2018-06-11] MEDS: PEPCID IV SCH ×2 (09:18→22:30)
[2018-06-11] MEDS: LOVENOX SUB-Q SCH ×2 (09:18→22:31)
[2018-06-11] MEDS: SODIUM CHLORIDE FLUSH SYRINGE 10 ML IV SCH ×2 (09:19→22:31)
--- NOTE | 2018-06-11 09:38 | Progress Note ---
Assessment and Plan Cultures: 06/07/18 Blood: A. baumannii/haemolyticus, 2 out of 4 bottles, 06/07/18 Urine culture: 10-100K mixed culture of >2 organisms 06/09/18 Right Ramirez Cath: no growth to date 06/09/18 Blood: no growth in 24 hours A/P: 42-year-old patient known to ID with a past medcial history of diabetes type 2, severe gastropparesis, s/p Port a cath palacement for TPN, J-tube and G-tube placement. Previous infected port a cath for TPN associated with sepsis with septic shock due to Klebsiella bacteremia. Klebsiella oxytoca bacteremia was 6 of 6 bottles positive on 09/02, blood cx 09/03 neg. Port-A-cath s/p removal on 09/04/17. She then developed a chest wall collection. CT chest showed a collection 2.6x2.5x1.6 cm with a small bubble of air s/p bediside I +D. Port cx + Stenotrophomona maltophilia. She was treated with Levaquin 750 mg IV qday for 2 weeks until 09/22/17 via a new PICC line to her right arm. On 01/27/18 She was readmitted and blood cultures grew MSSA bateremia, likely from PICC site infection/thrombus. PICC line was removed and a right Ramirez catheter was placed. She was discharged home on Vancomycin 1 gm IV every 12 hours until 02/23/18. Now admitted with: 1.Sepsis on Admission; Improved, Fever spike 102.2, Etiology uunclear, +/- DVT, Patient states that about 3 weeks ago she was diagnosed with a DVT in the right arm and was initially started on Eliquis and then transitioned to lovenox. Bacteremia, Blood cultures were drawn and show GNR 2 out of 4 bottles. U/A is negative for a UTI, Urine culture shows mixed culture of greater than 2 organisms. CXR shows no acute pulmonary disease. Chest CT show No significant change in pleural-based nodular consolidation anterior aspect left upper lobe, TTE shows no valvular vegetation. 2. A.baumannii/Haemolyticus Bacteremia: 2 out of 4 bottles, indeterminate to cefepime, will switch to Meropenem. Source unclear, Cultures obtained from Ramirez catheter show no growth to date. 3. DVT Right Arm: CT scans demonstrates occlusion of the right subclavian, and innominate vein. Possible involvement of the left innominate vein and part of the SVC. Has a history of SVC stenosis. Patient also has DVT with significant central symptoms with SVC syndrome. Prefer to ensure bacteremia clearance prior to new line. Also, patient with extensive thrombus, if bacteremia persists, it could be suggestive of thrombus seeding and patient may need prolonged abx therapy. 4. Diabetic Gastroparesis: has had nothing by mouth for the past 3 years, on TPN for the past 2 years. Gets TPN alternating with tube feedings. Plan: -f/u Ramirez Cath Cultures -discontinue Cefepime 2gm IV every 12 hours -start Meropenem 1 gm every 8 hours -f/u repeat blood cultures [facility] M: [phone] O:[phone] Subjective Date of service: 06/11/18 Interval history: Patient seen and examined. Reports right should tenderness and generalized weakness. Fever spike last night 102.2. Nurses notes, labs and reports reviewed, discussed with patient. Objective - Exam Narrative Exam: Constitutional: Alert, cooperative. No acute distress Head, Ears, Nose: Normocephalic, atraumatic. External ears, nose normal Eyes: Conjunctivae/corneas clear. No icterus. No ptosis. Neck: Supple, no meningeal signs, + right Ramirez Catheter, + tenderness Oral: dentition good, no thrush Cardiovascular: S1, S2 normal. Respiratory: Good air entry, clear to auscultation bilaterally GI: Soft, non-tender; bowel sounds normal. No peritoneal signs, + J tube Musculoskeletal: No pedal edema, no cyanosis., +right arm tenderness Skin: No rash or abscess. Hem/Lymphatic: No palpable cervical or supraclavicular nodes. No lymphangitis Psych: Mood ok. Affect normal Neurological: Awake, alert, oriented. - Constitutional Vitals: Vital Signs Temp Pulse Resp BP Pulse Ox 98 F 73 20 104/64 97 06/11/18 08:08 06/11/18 08:08 06/11/18 08:08 06/11/18 08:08 06/11/18 02:48 Temperature -Last 24 Hours Temperature 98 F Temperature 98.0 F Temperature 98.6 F Temperature 102.2 F Temperature 99.3 F Temperature 98.4 F - Labs CBC & Chem 7: 06/11/18 00:37 06/11/18 03:46 Labs: Abnormal lab results 06/10/18 06/10/18 06/11/18 Range/Units 18:39 18:53 00:37 RBC 3.33 L (3.65-5.03) M/mm3 Hgb 9.9 L (10.1-14.3) gm/dl Hct 29.7 L (30.3-42.9) % Lymph % (Auto) 12.3 L (13.4-35.0) % [place] % (Auto) 11.5 H (0.0-7.3) % Lymph # 1.1 L (1.2-5.4) K/mm3 [place] # 1.0 H (0.0-0.8) K/mm3 Seg Neutrophils % 75.9 H (40.0-70.0) % Potassium (3.6-5.0) mmol/L POC Glucose 58 L 143 H (70-105) 06/11/18 Range/Units 03:46 RBC (3.65-5.03) M/mm3 Hgb (10.1-14.3) gm/dl Hct (30.3-42.9) % Lymph % (Auto) (13.4-35.0) % [place] % (Auto) (0.0-7.3) % Lymph # (1.2-5.4) K/mm3 [place] # (0.0-0.8) K/mm3 Seg Neutrophils % (40.0-70.0) % Potassium 3.5 L (3.6-5.0) mmol/L POC Glucose (70-105)
[2018-06-11] MEDS ORDERED: MERREM 1,000 MG in NACL 0.9% 100 ML IV SCH (10:30)
--- NOTE | 2018-06-11 14:32 | Progress Note ---
Assessment and Plan /Sepsis with bacteremia, POA Possible from bacteremia associated with Hodge catheter Blood cx growing Acintobacter Bacteremia: 2 out of 4 bottles, - continue Meropenem 1 gm every 8 hours -f/u repeat blood cultures ID and vascular surgeon consulted Sepsis pathway initiated /History of diabetic gastroparesis Patient states that she has been nothing by mouth for the past 3 years and on TPN for the past 2 years she also gets TPN alternating with tube feedings Daily. 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 Possible involvement of the left innominate vein and part of the SVC. Has a history of SVC stenosis. Plan for thrombectomy of the involved veins, and then either PermCath cut down and re-tunneling of the right chest catheter or left IJ catheter placement if central veins allow this to be performed - per vascular. / Metabolic acidosis Mild and most likely secondary to sepsis, We'll monitor, cont Iv fluid /hypoglycemic event, D50 as needed, added d5/NS - place on dexamethasone, order cortisol level / GERD (gastroesophageal reflux disease) Cont on Pepcid IV twice a day Brief History: The patient is a 42-year-old female presented with history of gastroparesis and diabetes not on medication and nothing by mouth for 3 years presents to the ED chief complaint of fever and body aches. CTA chest: 1. No evidence of an acute intrathoracic process. 2. No evidence of pulmonary artery emboli. 3. No significant change in pleural-based nodular consolidation anterior aspect left upper lobe. 4. Percutaneous gastrostomy tube with tip in the stomach. CXR: No acute pulmonary disease.. Physical exam: General appearance: Present: no acute distress, well-nourished - EENT Eyes: PERRL, EOM intact ENT: hearing intact, clear oral mucosa Ears: bilateral: normal - Neck Neck: supple, normal ROM - Respiratory Respiratory effort: normal Respiratory: bilateral: CTA - Cardiovascular Rhythm: regular Heart Sounds: Present: S1 & S2. Absent: gallop, rub Details: tender on the right side of the chest on the catheter area Extremities: pulses intact, No edema, normal color, Full ROM - Gastrointestinal General gastrointestinal: Present: soft, non-tender, non-distended, normal bowel sounds - Integumentary Integumentary: clear, warm, dry - Musculoskeletal Musculoskeletal: 1, strength equal bilaterally - Neurologic Neurologic: moves all extremities - Psychiatric Psychiatric: memory intact, appropriate mood/affect, intact judgment & insight Subjective Date of service: 06/11/18 Interval history: Patient seen and examined c/o pain at the hodge catheter site, afebrile, pending final blood Cx cont to have hypoglycemic event Objective - Constitutional Vitals: Vital Signs - 12hr 06/11/18 06/11/18 06/11/18 02:48 08:08 11:36 Temperature 98.0 F 98 F 99.0 F Pulse Rate 93 H 73 82 Respiratory 18 20 18 Rate Blood Pressure 94/58 103/57 Blood Pressure 104/64 [Left] O2 Sat by Pulse 97 97 Oximetry - Labs CBC & Chem 7: 06/12/18 04:42 06/12/18 04:42 Labs: Abnormal lab results 06/10/18 06/10/18 06/11/18 Range/Units 18:39 18:53 00:37 RBC 3.33 L (3.65-5.03) M/mm3 Hgb 9.9 L (10.1-14.3) gm/dl Hct 29.7 L (30.3-42.9) % Lymph % (Auto) 12.3 L (13.4-35.0) % [place] % (Auto) 11.5 H (0.0-7.3) % Lymph # 1.1 L (1.2-5.4) K/mm3 [place] # 1.0 H (0.0-0.8) K/mm3 Seg Neutrophils % 75.9 H (40.0-70.0) % Potassium (3.6-5.0) mmol/L POC Glucose 58 L 143 H (70-105) 06/11/18 Range/Units 03:46 RBC (3.65-5.03) M/mm3 Hgb (10.1-14.3) gm/dl Hct (30.3-42.9) % Lymph % (Auto) (13.4-35.0) % [place] % (Auto) (0.0-7.3) % Lymph # (1.2-5.4) K/mm3 [place] # (0.0-0.8) K/mm3 Seg Neutrophils % (40.0-70.0) % Potassium 3.5 L (3.6-5.0) mmol/L POC Glucose (70-105)
[2018-06-11] MEDS: DECADRON IV SCH ×2 (15:01→17:12)
--- NOTE | 2018-06-11 16:15 | Progress Note ---
Assessment and Plan 42-year-old female who presents with right chest exit site infection, and bacteremia with history of fever and chills with catheter usage. CT scans demonstrates occlusion of the right subclavian, and innominate vein. Possible involvement of the left innominate vein and part of the SVC. Has a history of SVC stenosis. Patient also has DVT with significant central symptoms with SVC syndrome. Plan for right groin access for venography of the chest veins to assess thrombus, possible thrombectomy of the involved veins, and then either PermCath cut down and re-tunneling of the right chest catheter or left IJ catheter placement if central veins allow this to be performed. R/B/A discussed. BCx NGTD x 24 hrs at this point. Subjective Date of service: 06/11/18 Interval history: Had fever. Plan for attempted thrombectomy of SVC thrombus, and new line placement/line exchange. BCx NGTD x 24 hrs. Objective - Constitutional Vitals: Vital Signs - 12hr 06/11/18 06/11/18 08:08 11:36 Temperature 98 F 99.0 F Pulse Rate 73 82 Respiratory 20 18 Rate Blood Pressure 103/57 Blood Pressure 104/64 [Left] O2 Sat by Pulse 97 Oximetry General appearance: Present: no acute distress - EENT Eyes: EOM intact ENT: hearing intact - Neck Neck: other (Mild swelling head and neck, and arms) - Respiratory Respiratory effort: normal - Labs CBC & Chem 7: 06/11/18 00:37 06/11/18 03:46 Labs: Abnormal lab results 06/10/18 06/10/18 06/11/18 Range/Units 18:39 18:53 00:37 RBC 3.33 L (3.65-5.03) M/mm3 Hgb 9.9 L (10.1-14.3) gm/dl Hct 29.7 L (30.3-42.9) % Lymph % (Auto) 12.3 L (13.4-35.0) % [place] % (Auto) 11.5 H (0.0-7.3) % Lymph # 1.1 L (1.2-5.4) K/mm3 [place] # 1.0 H (0.0-0.8) K/mm3 Seg Neutrophils % 75.9 H (40.0-70.0) % Potassium (3.6-5.0) mmol/L POC Glucose 58 L 143 H (70-105) 06/11/18 Range/Units 03:46 RBC (3.65-5.03) M/mm3 Hgb (10.1-14.3) gm/dl Hct (30.3-42.9) % Lymph % (Auto) (13.4-35.0) % [place] % (Auto) (0.0-7.3) % Lymph # (1.2-5.4) K/mm3 [place] # (0.0-0.8) K/mm3 Seg Neutrophils % (40.0-70.0) % Potassium 3.5 L (3.6-5.0) mmol/L POC Glucose (70-105) Medications & Allergies - Medications Allergies/Adverse Reactions: Allergies ketorolac [From Toradol] Allergy (Verified 06/07/18 16:06) Swelling metoclopramide [From Reglan] Allergy (Verified 06/07/18 16:06) Unknown Penicillins Allergy (Verified 06/07/18 16:06) Swelling prochlorperazine [From Compazine] Allergy (Verified 06/07/18 16:06) Unknown promethazine [From Phenergan] Allergy (Verified 06/07/18 16:06) Swelling tramadol Allergy (Verified 06/07/18 16:06) Swelling adhesive tape Adverse Reaction (Verified 06/07/18 16:06) Itching Apple Allergy (Uncoded 06/09/18 15:36) Swelling Sour cream Allergy (Uncoded 06/09/18 15:36) Swelling Whip cream Allergy (Uncoded 06/09/18 15:36) Swelling Home Medications: Home Medications Medication Instructions Recorded Confirmed Last Taken Type Ondansetron [Zofran ODT TAB] 4 mg PO Q4HR PRN 03/04/18 06/07/18 04/03/18 History 4mg Clindamycin [Clindamycin CAP] 300 mg PO Q8H #21 cap 04/03/18 06/07/18 04/03/18 Rx 300mg HYDROcodone/APAP 5-325 [[place] 1 each PO BID PRN #10 tablet 04/15/18 06/07/18 Unknown Rx 5-325 mg TAB] Active Medications: Generic Name Dose Route Start Last Admin Trade Name Freq PRN Reason Stop Dose Admin Acetaminophen 325 mg 06/11/18 00:02 06/11/18 00:25 Tylenol [place] 325 mg Q6H PRN Administration Fever >101 Acetaminophen/Codeine Phosphate 1 tab 06/08/18 12:52 06/10/18 20:04 Tylenol #3 PO 1 tab Q4H PRN Administration Pain, Moderate (4-6) Dexamethasone 4 mg 06/11/18 15:00 06/11/18 15:01 Decadron IV Not Given Q6HR [facility] Dextrose 50 ml 06/07/18 20:56 06/10/18 18:39 D50w (25gm) Syringe IV 50 ml PRN PRN Administration Hypoglycemia Enoxaparin Sodium 70 mg 06/07/18 22:00 06/11/18 09:18 Lovenox SUB-Q Not Given Q12HR [facility] Famotidine 20 mg 06/07/18 22:00 06/11/18 09:18 Pepcid IV 20 mg Q12H [facility] Administration Dextrose/Sodium Chloride 1,000 mls @ 42 mls/hr 06/09/18 16:00 06/09/18 16:50 D5ns IV 42 mls/hr [facility] Administration Amino Acids/Electrolytes/Dextrose 2,400 mls @ 100 mls/hr 06/10/18 20:00 06/10/18 19:59 Tpn Adult IV 06/11/18 19:59 100 mls/hr [email or web address] Administration Protocol Fat Emulsion Intravenous 250 mls @ 21 mls/hr 06/11/18 20:00 Intralipid 20% IV 06/12/18 08:00 DAILY@[email or web address] Amino Acids/Electrolytes/Dextrose 2,400 mls @ 100 mls/hr 06/11/18 20:00 Tpn Adult IV 06/12/18 19:59 DAILY@[email or web address] Protocol Meropenem 1,000 mg/ Sodium 100 mls @ 100 mls/hr 06/11/18 20:00 Chloride IV Q8H [facility] Insulin Human Lispro 0 unit 06/07/18 22:00 06/11/18 14:00 Humalog SUB-Q Not Given Q4HR [facility] Protocol Morphine Sulfate 2 mg 06/07/18 20:56 06/11/18 12:31 Morphine IV 2 mg Q4H PRN Administration Pain, Moderate (4-6) Ondansetron HCl 4 mg 06/07/18 20:56 06/11/18 08:03 Zofran IV 4 mg Q8H PRN Administration Nausea And Vomiting Sodium Chloride 10 ml 06/07/18 22:00 06/11/18 09:19 Sodium Chloride Flush Syringe 10 Ml IV 10 ml BID HERI Administration Sodium Chloride 10 ml 06/07/18 20:56 Sodium Chloride Flush Syringe 10 Ml IV PRN PRN LINE FLUSH
[2018-06-11] MEDS: D5NS 1,000 ML IV SCH (16:21)
[2018-06-11] MEDS ORDERED: TPN ADULT 2,400 ML IV SCH (20:00)
[2018-06-11] MEDS: INTRALIPID 20% 250 ML IV SCH ×2 (20:10→22:31)
[2018-06-11] MEDS: MERREM 1,000 MG in NACL 0.9% 100 ML IV SCH (20:13)
[2018-06-12] MEDS: MORPHINE IV PRN ×5 (00:18→20:57)
[2018-06-12] MEDS: DECADRON IV SCH ×4 (00:24→18:13)
[2018-06-12] MEDS: HumaLOG SUB-Q SCH ×5 (02:21→18:00)
[2018-06-12 05:13] LABS: Basophils % (Auto) 0.2 % (0.0-1.8); Hematocrit 29.5 % (30.3-42.9); Lymphocytes # (Auto) 1.5 K/mm3 (1.2-5.4); Mean Corpuscular HGB Conc 34 % (30-34); Mean Corpuscular Volume 89 fl (79-97); Monocytes % (Auto) 14.7 % (0.0-7.3); Platelet Count 206 K/mm3 (140-440); Red Blood Count 3.31 M/mm3 (3.65-5.03); Red Cell Distribution Width 13.9 % (13.2-15.2)
[2018-06-12] MEDS: MERREM 1,000 MG in NACL 0.9% 100 ML IV SCH ×2 (05:23→12:00)
[2018-06-12 05:32] LABS: BUN/Creatinine Ratio 22; Blood Urea Nitrogen 13 mg/dL (7-17); Calcium 8.9 mg/dL (8.4-10.2); Hemolysis Index 0
[2018-06-12] MEDS: ZOFRAN IV PRN ×2 (05:36→14:02)
[2018-06-12] MEDS ORDERED: NACL 0.9% 500 ML 500 ML ONE (09:26)
[2018-06-12] MEDS ORDERED: DIPRIVAN 10 MG/ML 0 MG/0 ML BOTTLE IV ONE (09:37)
[2018-06-12] MEDS ORDERED: XYLOCAINE MPF 2% ONE (09:42)
[2018-06-12] MEDS ORDERED: VERSED ONE (09:42)
[2018-06-12] MEDS ORDERED: DECADRON ONE (09:42)
[2018-06-12] MEDS ORDERED: SUBLIMAZE ONE (09:42)
[2018-06-12] MEDS ORDERED: ZOFRAN ONE ×2 (09:42→14:00)
[2018-06-12] MEDS ORDERED: DIPRIVAN 10 MG/ML IV ONE (09:42)
[2018-06-12] MEDS ORDERED: KETALAR ONE (09:42)
[2018-06-12] MEDS ORDERED: XYLOCAINE 1%/ EPI 1:100,000 INFILTRATI ONE (09:50)
[2018-06-12] MEDS ORDERED: HEPARIN/NS 5000 UNIT/500ML(CATH LAB) 500 ML IR ONE (09:50)
--- NOTE | 2018-06-12 09:56 | Progress Note ---
Assessment and Plan Cultures: 06/07/18 Blood: Acintobacter 2 out of 4 bottles, 06/07/18 Urine culture: 10-100K mixed culture of >2 organisms 06/09/18 Right Ramirez Cath: no growth to date 06/09/18 Blood: no growth in 48 hours A/P: 42-year-old patient known to ID with a past medcial history of diabetes type 2, severe gastropparesis, s/p Port a cath palacement for TPN, J-tube and G-tube placement. Previous infected port a cath for TPN associated with sepsis with septic shock due to Klebsiella bacteremia. Klebsiella oxytoca bacteremia was 6 of 6 bottles positive on 09/02, blood cx 09/03 neg. Port-A-cath s/p removal on 09/04/17. She then developed a chest wall collection. CT chest showed a collecti on 2.6x2.5x1.6 cm with a small bubble of air s/p bediside I +D. Port cx + Stenotrophomona maltophilia. She was treated with Levaquin 750 mg IV qday for 2 weeks until 09/22/17 via a new PICC line to her right arm. On 01/27/18 She was readmitted and blood cultures grew MSSA bateremia, likely from PICC site infection/thrombus. PICC line was removed and a right Ramirez catheter was placed. She was discharged home on Vancomycin 1 gm IV every 12 hours until 02/23/18. Now admitted with: 1.Sepsis on Admission; Improved, no fevers in > 24 hours. Etiology uunclear, +/- DVT, Patient states that about 3 weeks ago she was diagnosed with a DVT in the right arm and was initially started on Eliquis and then transitioned to lovenox. Bacteremia, Blood cultures were drawn and show GNR 2 out of 4 bottles. U/A is negative for a UTI, Urine culture shows mixed culture of greater than 2 organisms. CXR shows no acute pulmonary disease. Chest CT show No significant change in pleural-based nodular consolidation anterior aspect left upper lobe, TTE shows no valvular vegetation. 2. Acintobacter Bacteremia: 2 out of 4 bottles, 1 bottle indeterminate to cefepime, switched to Meropenem. Source unclear, Cultures obtained from Ramirez catheter show no growth to date. 3. DVT Right Arm: CT scans demonstrates occlusion of the right subclavian, and innominate vein. Possible involvement of the left innominate vein and part of the SVC. Has a history of SVC stenosis. Patient also has DVT with significant central symptoms with SVC syndrome. Prefer to ensure bacteremia clearance prior to new line. Also, patient with extensive thrombus, if bacteremia persists, it could be suggestive of thrombus seeding and patient may need prolonged abx therapy. Blood cultures show no growth in 48 hours, proceed with plan for attempted thrombectomy of SVC thrombus, and new line placement/line exchange 4. Diabetic Gastroparesis: has had nothing by mouth for the past 3 years, on TPN for the past 2 years. Gets TPN alternating with tube feedings. Plan: -f/u Ramirez Cath Cultures -discontinue Meropenem 1 gm every 8 hours -f/u repeat blood cultures -Anticipate discharge on Levofloxacin 750mg via J tube every 24 hours for 7 days -Start Levofloxacin 750 mg IV every 24 hours -Order HIV rapid at patient request [facility] M: [phone] O:[phone] Subjective Date of service: 06/12/18 Interval history: Patient seen and examined. s/p surgery. Awake, alert, no acute distress observed. Nurses notes, labs and reports reviewed, discussed with patient. Objective - Exam Narrative Exam: Constitutional: Alert, cooperative. No acute distress Head, Ears, Nose: Normocephalic, atraumatic. External ears, nose normal Eyes: Conjunctivae/corneas clear. No icterus. No ptosis. Neck: Supple, no meningeal signs, + right Ramirez Catheter, + tenderness Oral: dentition good, no thrush Cardiovascular: S1, S2 normal. Respiratory: Good air entry, clear to auscultation bilaterally GI: Soft, non-tender; bowel sounds normal. No peritoneal signs, + J tube Musculoskeletal: No pedal edema, no cyanosis., +right arm tenderness Skin: No rash or abscess. Hem/Lymphatic: No palpable cervical or supraclavicular nodes. No lymphangitis Psych: Mood ok. Affect normal Neurological: Awake, alert, oriented. - Constitutional Vitals: Vital Signs Temp Pulse Resp BP Pulse Ox 98.2 F 76 18 98/59 97 06/12/18 06:19 06/12/18 06:19 06/12/18 06:19 06/12/18 06:19 06/12/18 06:19 Temperature -Last 24 Hours Temperature 98.2 F Temperature 98.3 F Temperature 98.8 F Temperature 99.0 F - Labs CBC & Chem 7: 06/12/18 04:42 06/12/18 04:42 Labs: Abnormal lab results 06/12/18 06/12/18 06/12/18 Range/Units 02:11 04:42 04:42 RBC 3.31 L (3.65-5.03) M/mm3 Hgb 10.0 L (10.1-14.3) gm/dl Hct 29.5 L (30.3-42.9) % [place] % (Auto) 14.7 H (0.0-7.3) % [place] # 1.0 H (0.0-0.8) K/mm3 Creatinine 0.6 L (0.7-1.2) mg/dL Glucose 106 H (65-100) mg/dL POC Glucose 165 H (70-105) 06/12/18 Range/Units 05:46 RBC (3.65-5.03) M/mm3 Hgb (10.1-14.3) gm/dl Hct (30.3-42.9) % [place] % (Auto) (0.0-7.3) % [place] # (0.0-0.8) K/mm3 Creatinine (0.7-1.2) mg/dL Glucose (65-100) mg/dL POC Glucose 106 H (70-105)
--- NOTE | 2018-06-12 09:58 | Anesthesia Consultation ---
Anesthesia Consult and Med Hx Date of service: 06/12/18 - Airway Anesthetic Teeth Evaluation: Good ROM Head & Neck: Adequate Mental/Hyoid Distance: Adequate Mallampati Class: Class I Intubation Access Assessment: Good - Pulmonary Exam CTA: Yes - Cardiac Exam Cardiac Exam: RRR - Pre-Operative Health Status ASA Pre-Surgery Classification: ASA3 Proposed Anesthetic Plan: MAC - Pulmonary Hx Smoking: Yes Hx Asthma: No Hx Respiratory Symptoms: No - Cardiovascular System Hx Hypertension: No Hx Heart Attack/AMI: No Hx Percutaneous Transluminal Coronary Angioplasty (PTCA): No Hx Cardia Arrhythmia: No Hx Pacemaker: No Hx Internal Defibrillator: No - Central Nervous System Hx Seizures: No CVA: No - Gastrointestinal Hx Gastroesophageal Reflux Disease: No (G-tube in-situ for gastroparesis) - Endocrine Hx Renal Disease: No Hx Liver Disease: No Hx Non-Insulin Dependent Diabetes: Yes (hypoglycemic episodes this admission. No hyperglycemia.) Hx Thyroid Disease: No - Hematic Hx Anemia: Yes - Other Systems Hx Obesity: No - Additional Comments Anesthesia Medical History Comments: PMH severe gastroparesis s/p PEG tube (NPO for many years) on TPN, RUE DVT with SVC syndrome symptoms, DM, smoking presenting initially with sepsis 2/2 bacteremia and line infection. Sepsis resolved, blood cultures NG >48hrs now scheduled for thrombectomy and percath exchange. No hx anesthetic complications.
--- NOTE | 2018-06-12 09:58 | Anesthesia Day of Surgery ---
Anesthesia Day of Surgery - Day of Surgery Patient Examined: Yes Patient H&P Reviewed: Yes Patient is NPO: Yes
[2018-06-12] MEDS ORDERED: NACL 0.9% 500 ML 500 ML IV SCH (10:00)
[2018-06-12] MEDS: LOVENOX SUB-Q SCH (10:00)
[2018-06-12] MEDS: PEPCID IV SCH (10:00)
[2018-06-12] MEDS ORDERED: LEVAQUIN 500MG/100ML 500 MG/100 ML BAG IV ONE (10:02)
[2018-06-12] MEDS ORDERED: XYLOCAINE 2% INFILTRATI ONE (10:22)
[2018-06-12] MEDS ORDERED: CATHFLO ONE (10:49)
[2018-06-12] MEDS ORDERED: WATER FOR INJ (PF) ONE (10:49)
[2018-06-12] MEDS: HEPARIN 10,000 UNITS/10 ML ONE ×3 (10:53→12:29)
[2018-06-12] MEDS ORDERED: NACL 0.9% 50 ML ONE (10:56)
[2018-06-12] MEDS ORDERED: HEPARIN/NS 5000 UNIT/500ML(CATH LAB) 1,000 ML IR ONE (10:58)
[2018-06-12] MEDS: XYLOCAINE 1%/ EPI 1:100,000 INFILTRATI ONE ×2 (11:40→12:19)
[2018-06-12] MEDS ORDERED: HEPARIN 10,000 UNITS/10 ML ONE (12:47)
--- NOTE | 2018-06-12 12:51 | Post Operative Note ---
Date of procedure: 06/12/18 Pre-op diagnosis: SVC syndrome, bacteremia with right tunneled catheter Post-op diagnosis: same Procedure: 1. Ultrasound guided access of the right common femoral vein 2. Selection of the SVC with venography 3. Selection of the right subclavian vein with venography 4. Selection of the left innominate vein, subclavian vein, and axillary vein with venography 5. Pulse spray 6 mg tPA in the superior portion of the SVC and 8 Fr angiojet thrombectomy of the superior SVC 6. Angioplasty of the left subclavian vein, innominate vein, and SVC with an 8 mm x 80 mm angioplasty balloon 7. Selection of the right internal jugular vein with angiography 8. Angioplasty of the right innominate vein and SVC with a 9 mm x 60 mm angioplasty balloon 9. Angioplasty of the left innominate vein and SVC with a 9 mm x 60 mm angioplasty balloon 10. Angioplasty of the SVC with a 12 mm x 60 mm angioplasty balloon 11. Ultrasound guided access of the right internal jugular vein above the prior catheter 12. Fluoroscopic guided removal of the right tunneled cuffed single lumen Ramirez catheter 13. Fluoroscopic guided placement of a new right internal jugular single lumen Ramirez catheter Anesthesia: local (w/ conscious sedation) Surgeon: MAURICIO SOTO Estimated blood loss: minimal Condition: stable Disposition: floor
[2018-06-12] MEDS ORDERED: HEPARIN/ 0.45% NACL-25,000 UNIT/500 ML 25,000 UNIT/500 ML BAG IV SCH ×2 (13:00→15:00)
--- NOTE | 2018-06-12 13:01 | Event Note ---
Date: 06/12/18 Successful central vein thrombectomy, tunneled catheter removal and placement of a new tunneled catheter. Started heparin drip. Tomorrow restart lovenox and can discontinue heparin drip at time of lovenox administration.
--- NOTE | 2018-06-12 13:01 | Operative Report ---
Operative Report Operative Report: EXAM: 1. Ultrasound guided access of the right common femoral vein 2. Selection of the SVC with venography 3. Selection of the right subclavian vein with venography 4. Selection of the left innominate vein, subclavian vein, and axillary vein with venography 5. Pulse spray 6 mg tPA in the superior portion of the SVC and 8 Fr angiojet thrombectomy of the superior SVC 6. Angioplasty of the left subclavian vein, innominate vein, and SVC with an 8 mm x 80 mm angioplasty balloon 7. Selection of the right internal jugular vein with angiography 8. Angioplasty of the right innominate vein and SVC with a 9 mm x 60 mm angioplasty balloon 9. Angioplasty of the left innominate vein and SVC with a 9 mm x 60 mm stu oplasty balloon 10. Angioplasty of the SVC with a 12 mm x 60 mm angioplasty balloon 11. Ultrasound guided access of the right internal jugular vein above the prior catheter 12. Fluoroscopic guided removal of the right tunneled cuffed single lumen Ramirez catheter 13. Fluoroscopic guided placement of a new right internal jugular single lumen Ramirez catheter DATE: 06/12/18 INSTRUCTIONAL SERVICES SPECIALIST: MAURICIO SOTO MD INDICATION: Symptomatic with SVC syndrome and syncopal events with her face turning blue and upper extremity and head swelling with tunneled catheter bacteremia. Blood cultures negative 48 hours. MEDICATIONS: Please see nursing report for full details. ANESTHESIA: GENERAL WITH LMA. SEE ANESTHESIA REPORT. DEVICES: 8 mm x 80 mm angioplasty balloon 9 mm x 60 mm angioplasty balloon 12 mm x 60 mm angioplasty balloon 8 [place] AngioJet 9.6 [place] single lumen Ramirez catheter CONTRAST: Please see trestle mainternance laborer report for full details PROCEDURE: The risks, benefits, and alternatives were discussed with the patient; written informed consent was obtained. The groins were prepped and draped in a sterile fashion. Ultrasound is used to evaluate the right common femoral vein which was patent. Under direct ultrasound guidance, the right common femoral vein was accessed with a 21-gauge micropuncture needle. 0.018 inch wire was passed into the IVC. Needle was exchanged for transitional dilator. Wire was exchanged for 0.035 inch wire. Transitional dilator was exchanged for a 5 [place] sheath. This was then upsized to an 8 [place]an 65 cm [place] destination positioned in the SVC. The SVC was selected. Digital subtraction angiography was performed demonstrating 60% narrowing of the infra-azygos SVC with patency of the azygos vein. The SVC at the innominate vein junction was occluded. 6 [place] catheter and Glidewire advantage were then used to select the right central subclavian vein. The wire would not cross into the peripheral subclavian vein. Digital subtraction angiography was performed demonstrating severe narrowing/near occlusion of the peripheral portion of the innominate vein and some thrombus within the central portion of the subclavian vein. Multiple attempts were used to cross into the peripheral portion of the subclavian vein but this was unsuccessful compatible with a more chronic occlusion of the peripheral subclavian vein. I decided to abandon attempts at reconstructing the right subclavian vein. The left innominate vein was then selected, the left subclavian vein was selected, and the left axillary vein was selected. Digital subtraction angiography was performed demonstrating patency of the left axillary vein with 50% narrowing of the left subclavian vein and 90% narrowing of the central left innominate vein. The SVC at the junction of the innominate vein was occluded and the flow was into collaterals supplying the azygos vein. 6 mg of tPA was pulse sprayed into the SVC at the junction of the innominate veins using an 8 [place] AngioJet. 15 minute dwell time was performed at which time the right neck was prepped and draped in a sterile fashion. 8 [place] AngioJet was then used to perform mechanical thrombectomy of the upper portion of the SVC. There was resolution of some thrombus but still severe narrowing at this region. 8 mm x 80 mm angioplasty balloon was then used to perform angioplasty of the left subclavian and left innominate vein and upper portion of the SVC. Digital subtraction angiography was performed demonstrating improved flow with flow now into the SVC which previously drained into the azygos vein. There was 40% residual narrowing of the left innominate vein and less than 10% residual narrowing of the left subclavian vein. The right internal jugular vein was then selected through a sandra wire and digital subtraction angiography was performed imaging patency of the right internal jugular vein with severe narrowing of the central portion of the innominate vein with the internal jugular vein predomi nantly draining into the azygos. 9 mm x 60 mm angioplasty balloon was used to perform angioplasty of the right innominate vein and the upper portion of the superior vena cava. This was then performed of the left innominate vein and upper portion of the superior vena cava. Digital subtraction angiography demonstrated significantly improved flow with drainage through the superior vena cava although there was still residual narrowing in the infra-azygos superior vena cava as described previously and at the SVC junction with the innominate veins. The central right innominate vein and the left innominate vein now had less than 10% residual narrowing. 12 mm x 60 mm angioplasty balloon was then used to perform angioplasty along the SVC. Digital subtraction angiography was performed demonstrating excellent drainage through the central right innominate vein and left innominate vein into the SVC with good flow into the SVC and 30% residual narrowing of the infra- azygos SVC. There was 20% residual narrowing in the SVC at the innominate vein drainage sites. At this point, the wires were removed and the sheath was retracted into the IVC. Ultrasound was used to evaluate the right internal jugular vein which was patent. Under direct ultrasound guidance, the right internal jugular vein above the existing catheter was accessed with a 21-gauge micropuncture needle. 0.018 inch wire was passed into the IVC. Needle was exchanged for transitional dilator. At this point, under fluoroscopic guidance, the existing tunneled Ramirez catheter cuff was removed and the catheter was then removed his pressure was held at the venotomy. Pressure was held until hemostasis was achieved. At this point, the 0.018 inch wire in the right internal jugular vein access site was then used to jeff an appropriate distance. Wire and in her dilator was removed and 0.035 inch Amplatz wire was passed into the IVC. Transitional dilator was exchanged for the peel-away sheath. The skin was anesthetized in a lateral course around the prior tunneled catheter tract to prevent cross contamination. Dermatology was made and Ramirez was attached to a tunneling device which was tunneled from the dermatology to the venotomy. Catheter was cut and then passed through the peel-away sheath. Venotomy was closed with 4-0 Vicryl and Dermabond. Dermatology was secured with 3-0 Ethilon. The Ramirez catheter is able to aspirate and flushed without issue. The tip was in the proximal right atrium. The catheter was infused with 200 units of heparin per mL of space. One-way valve was attached. Bio patch and sterile dressing applied. At this point, the right common femoral vein sheath was removed and pressure was held until hemostasis was achieved. Sterile dressing applied. Pressure dressing applied. Patient tolerated the procedure well. No immediate postprocedure complication. FINDINGS: Please see procedure note above. IMPRESSION: 1. Successful ultrasound-guided access of the right common femoral vein. 2. Successful selection of the right subclavian vein and left axillary vein with angiography of the upper extremities and the SVC. 3. Successful thrombectomy of the upper portion of the SVC. 4. Successful angioplasty of the right innominate vein, left subclavian and innominate vein, and SVC. 5. Successful ultrasound-guided access of the right internal jugular vein. 6. Successful fluoroscopically guided removal of the right internal jugular tunneled cuffed catheter. 7. Successful fluoroscopically guided placement of a de juancho right internal jugular tunneled cuffed catheter.
[2018-06-12] MEDS ORDERED: MORPHINE ONE (14:00)
[2018-06-12] MEDS ORDERED: NACL 0.9% 1000 ML 1,000 ML IV SCH (14:00)
--- NOTE | 2018-06-12 15:13 | Post Anesthesia Evaluation ---
- Post Anesthesia Evaluation Patient Participated: Yes Airway Patent: Yes Stable Respiratory Function: Yes Nausea/Vomiting: No Temp > 96.8F: Yes Pain Manageable: Yes Adequeate Hydration: Yes Anesthesia Complications: No
--- NOTE | 2018-06-12 15:27 | Progress Note ---
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 Possible involvement of the left innominate vein and part of the SVC. Has a history of SVC stenosis. Successful central vein thrombectomy, tunneled catheter removal and placement of a new tunneled catheter by vascular cont heparin drip for now, will change to lovenox tomorrow /Sepsis with bacteremia, POA Possible from bacteremia associated with Ramirez catheter Blood cx growing Acintobacter Bacteremia: 2 out of 4 bottles, - continue Meropenem 1 gm every 8 hours -f/u repeat blood cultures ID and vascular surgeon consulted Sepsis pathway initiated /History of diabetic gastroparesis Patient states that she has been nothing by mouth for the past 3 years and on TPN for the past 2 years she also gets TPN alternating with tube feedings Daily. Nutrition consult requested She denies ever taking insulin or oral hypoglycemic agents cont to monitor BG / Metabolic acidosis Mild and most likely secondary to sepsis, We'll monitor, cont Iv fluid /hypoglycemic event, D50 as needed, added d5/NS - placed on dexamethasone, ordered cortisol level - pending / GERD (gastroesophageal reflux disease) Cont on Pepcid IV twice a day Brief History: The patient is a 42-year-old female presented with history of gastroparesis and diabetes not on medication and nothing by mouth for 3 years presents to the ED chief complaint of fever and body aches. CTA chest: 1. No evidence of an acute intrathoracic process. 2. No evidence of pulmonary artery emboli. 3. No significant change in pleural-based nodular consolidation anterior aspect left upper lobe. 4. Percutaneous gastrostomy tube with tip in the stomach. CXR: No acute pulmonary disease.. Physical exam: General appearance: Present: no acute distress, well-nourished - EENT Eyes: PERRL, EOM intact ENT: hearing intact, clear oral mucosa Ears: bilateral: normal - Neck Neck: supple, normal ROM - Respiratory Respiratory effort: normal Respiratory: bilateral: CTA - Cardiovascular Rhythm: regular Heart Sounds: Present: S1 & S2. Absent: gallop, rub Details: tender on the right side of the chest on the catheter area Extremities: pulses intact, No edema, normal color, Full ROM - Gastrointestinal General gastrointestinal: Present: soft, non-tender, non-distended, normal bowel sounds - Integumentary Integumentary: clear, warm, dry - Musculoskeletal Musculoskeletal: 1, strength equal bilaterally - Neurologic Neurologic: moves all extremities - Psychiatric Psychiatric: memory intact, appropriate mood/affect, intact judgment & insight Subjective Date of service: 06/12/18 Interval history: Patient seen and examined s/p vascular procedure today, but still c/o pain Objective - Constitutional Vitals: Vital Signs - 12hr 06/12/18 06/12/18 06/12/18 06:19 13:15 13:30 Temperature 98.2 F Pulse Rate 76 60 59 L Respiratory 18 12 13 Rate Blood Pressure 98/59 151/65 145/76 O2 Sat by Pulse 97 100 100 Oximetry 06/12/18 06/12/18 06/12/18 13:45 14:00 14:15 Temperature Pulse Rate 60 57 L 53 L Respiratory 14 15 12 Rate Blood Pressure 150/59 143/66 132/74 O2 Sat by Pulse 100 100 100 Oximetry 06/12/18 14:31 Temperature Pulse Rate 54 L Respiratory 12 Rate Blood Pressure 141/78 O2 Sat by Pulse 100 Oximetry - Labs CBC & Chem 7: 06/13/18 00:34 06/13/18 04:00 Labs: Abnormal lab results 06/12/18 06/12/18 06/12/18 Range/Units 02:11 04:42 04:42 RBC 3.31 L (3.65-5.03) M/mm3 Hgb 10.0 L (10.1-14.3) gm/dl Hct 29.5 L (30.3-42.9) % [place] % (Auto) 14.7 H (0.0-7.3) % [place] # 1.0 H (0.0-0.8) K/mm3 Creatinine 0.6 L (0.7-1.2) mg/dL Glucose 106 H (65-100) mg/dL POC Glucose 165 H (70-105) 06/12/18 06/12/18 06/12/18 Range/Units 05:46 09:47 13:33 RBC (3.65-5.03) M/mm3 Hgb (10.1-14.3) gm/dl Hct (30.3-42.9) % [place] % (Auto) (0.0-7.3) % [place] # (0.0-0.8) K/mm3 Creatinine (0.7-1.2) mg/dL Glucose (65-100) mg/dL POC Glucose 106 H 135 H 177 H (70-105)
[2018-06-12 16:16] LABS: Hematocrit 29.8 % (30.3-42.9); Hemoglobin 9.9 gm/dl (10.1-14.3)
[2018-06-12 16:26] LABS: INR 0.87 (0.87-1.13)
[2018-06-12 16:27] LABS: Partial Thromboplastin Time 52.3 Sec. (24.2-36.6)
[2018-06-12] MEDS: LEVAQUIN 750MG/150ML 750 MG/150 ML BAG IV SCH (17:14)
[2018-06-12] MEDS: SODIUM CHLORIDE FLUSH SYRINGE 10 ML IV SCH (19:00)
[2018-06-12] MEDS ORDERED: TPN ADULT 2,400 ML IV SCH (20:00)
[2018-06-12] MEDS: TYLENOL #3 PO PRN (20:15)
[2018-06-13] MEDS: PEPCID IV SCH ×3 (00:32→22:08)
[2018-06-13] MEDS: HumaLOG SUB-Q SCH ×7 (00:34→22:51)
[2018-06-13] MEDS: SODIUM CHLORIDE FLUSH SYRINGE 10 ML IV SCH ×3 (00:34→22:13)
[2018-06-13] MEDS: DECADRON IV SCH ×4 (00:36→22:49)
[2018-06-13 01:00] LABS: Basophils % (Auto) 0.1 % (0.0-1.8); Hematocrit 29.2 % (30.3-42.9); Hemoglobin 9.6 gm/dl (10.1-14.3); Lymphocytes # (Auto) 2.3 K/mm3 (1.2-5.4); Lymphocytes % (Auto) 18.9 % (13.4-35.0); Mean Corpuscular HGB Conc 33 % (30-34); Mean Corpuscular Volume 90 fl (79-97); Monocytes # (Auto) 1.5 K/mm3 (0.0-0.8); Monocytes % (Auto) 12.1 % (0.0-7.3); Platelet Count 197 K/mm3 (140-440); Red Blood Count 3.26 M/mm3 (3.65-5.03); Red Cell Distribution Width 13.7 % (13.2-15.2)
[2018-06-13] MEDS: MORPHINE IV PRN ×5 (01:48→22:04)
[2018-06-13 04:28] LABS: BUN/Creatinine Ratio 22; Blood Urea Nitrogen 13 mg/dL (7-17); Calcium 8.5 mg/dL (8.4-10.2); Hemolysis Index 3
[2018-06-13] MEDS: TYLENOL #3 PO PRN ×2 (09:35→19:12)
[2018-06-13] MEDS: LEVAQUIN 750MG/150ML 750 MG/150 ML BAG IV SCH (09:35)
--- NOTE | 2018-06-13 09:43 | Progress Note ---
Assessment and Plan Cultures: 06/07/18 Blood: Acintobacter 2 out of 4 bottles, 06/07/18 Urine culture: 10-100K mixed culture of >2 organisms 06/09/18 Right Ramirez Cath: no growth to date 06/09/18 Blood: no growth thus far A/P: 42-year-old patient known to ID with a past medcial history of diabetes type 2, severe gastropparesis, s/p Port a cath palacement for TPN, J-tube and G-tube placement. Previous infected port a cath for TPN associated with sepsis with septic shock due to Klebsiella bacteremia. Klebsiella oxytoca bacteremia was 6 of 6 bottles positive on 09/02, blood cx 09/03 neg. Port-A-cath s/p removal on 09/04/17. She then developed a chest wall collection. CT chest showed a collection 2.6x2.5x1.6 cm with a small bubble of air s/p bediside I +D. Port cx + Stenotrophomona maltophilia. She was treated with Levaquin 750 mg IV qday for 2 weeks until 09/22/17 via a new PICC line to her right arm. On 01/27/18 She was readmitted and blood cultures grew MSSA bateremia, likely from PICC site i nfection/thrombus. PICC line was removed and a right Ramirez catheter was placed. She was discharged home on Vancomycin 1 gm IV every 12 hours until 02/23/18. Now admitted with: 1.Sepsis on Admission; Improved, no fevers in > 24 hours. Etiology uunclear, +/- DVT, Patient states that about 3 weeks ago she was diagnosed with a DVT in the right arm and was initially started on Eliquis and then transitioned to lovenox. Bacteremia, Blood cultures were drawn and show GNR 2 out of 4 bottles. U/A is negative for a UTI, Urine culture shows mixed culture of greater than 2 organisms. CXR shows no acute pulmonary disease. Chest CT show No significant change in pleural-based nodular consolidation anterior aspect left upper lobe, TTE shows no valvular vegetation. HIV negative 2. Acintobacter Bacteremia: 2 out of 4 bottles, 1 bottle indeterminate to cefepime, switched to Levofloxacin. Source unclear, most likely Ramirez catheter.However, cultures obtained from Ramirez catheter show no growth to da te. 3. DVT Right Arm: CT scans demonstrates occlusion of the right subclavian, and innominate vein. Possible involvement of the left innominate vein and part of the SVC. Has a history of SVC stenosis. Patient also has DVT with significant central symptoms with SVC syndrome. s/p angioplasty of the right innominate vein, left subclavian and innominate vein, and SVC and fluoroscopically guided placement of a de juancho right internal jugular tunneled cuffed catheter 06/12/18. Anticipate being discharged home on levofloxacin 750mg IV every 24 hours for total 7 days. 4. Diabetic Gastroparesis: has had nothing by mouth for the past 3 years, on TPN for the past 2 years. Gets TPN alternating with tube feedings. Plan: -f/u repeat blood cultures -continue Levofloxacin 750 mg IV every 24 hours -switch to Levofloxacin 750mg IV every 24 hours for total 7 days ending 06/19/18 at discharge (per discussion with Pharmacist) Order sent to [facility] for approval Dr. Elias will be commissioner public works this weekend, , please call for questions. [facility] [employer] [facility] M: [id number] O:[phone] Subjective Date of service: 06/13/18 Interval history: Patient seen and examined. Generalized pain and tenderness at right Ramirez site. No SOB, or fevers. Objective - Exam Narrative Exam: Constitutional: Alert, cooperative, generalized weakness, mild acute distress Head, Ears, Nose: Normocephalic, atraumatic. External ears, nose normal Eyes: Conjunctivae/corneas clear. No icterus. No ptosis. Neck: Supple, no meningeal signs, + right Ramirez Catheter, + tenderness, redness Oral: dentition good, no thrush Cardiovascular: S1, S2 normal. Respiratory: Good air entry, clear to auscultation bilaterally GI: Soft, non-tender; bowel sounds normal. No peritoneal signs, + J tube Musculoskeletal: No pedal edema, no cyanosis., +right arm tenderness Skin: No rash or abscess. Hem/Lymphatic: No palpable cervical or supraclavicular nodes. No lymphangitis Psych: Mood ok. Affect normal Neurological: Awake, alert, oriented. - Constitutional Vitals: Vital Signs Temp Pulse Resp BP Pulse Ox 98.2 F 75 18 86/44 95 06/13/18 05:02 06/13/18 05:02 06/13/18 05:02 06/13/18 05:02 06/13/18 05:02 Temperature -Last 24 Hours Temperature 98.2 F Temperature 98.3 F Temperature 98.4 F - Labs CBC & Chem 7: 06/13/18 00:34 06/13/18 04:00 Labs: Abnormal lab results 06/12/18 06/12/18 06/12/18 Range/Units 09:47 13:33 15:54 WBC (4.5-11.0) K/mm3 RBC (3.65-5.03) M/mm3 Hgb 9.9 L (10.1-14.3) gm/dl Hct 29.8 L (30.3-42.9) % [place] % (Auto) (0.0-7.3) % [place] # (0.0-0.8) K/mm3 Seg Neutrophils # (1.8-7.7) K/mm3 APTT (24.2-36.6) Sec. Heparin Anti-Xa Level (0.3-0.7) U.I./ml Carbon Dioxide (22-30) mmol/L Creatinine (0.7-1.2) mg/dL Glucose (65-100) mg/dL POC Glucose 135 H 177 H (70-105) Phosphorus (2.5-4.5) mg/dL 06/12/18 06/12/18 06/12/18 Range/Units 15:54 17:45 21:06 WBC (4.5-11.0) K/mm3 RBC (3.65-5.03) M/mm3 Hgb (10.1-14.3) gm/dl Hct (30.3-42.9) % [place] % (Auto) (0.0-7.3) % [place] # (0.0-0.8) K/mm3 Seg Neutrophils # (1.8-7.7) K/mm3 APTT 52.3 H (24.2-36.6) Sec. Heparin Anti-Xa Level 0.28 L (0.3-0.7) U.I./ml Carbon Dioxide (22-30) mmol/L Creatinine (0.7-1.2) mg/dL Glucose (65-100) mg/dL POC Glucose 130 H (70-105) Phosphorus (2.5-4.5) mg/dL 06/13/18 06/13/18 Range/Units 00:34 04:00 WBC 12.1 H (4.5-11.0) K/mm3 RBC 3.26 L (3.65-5.03) M/mm3 Hgb 9.6 L (10.1-14.3) gm/dl Hct 29.2 L (30.3-42.9) % [place] % (Auto) 12.1 H (0.0-7.3) % [place] # 1.5 H (0.0-0.8) K/mm3 Seg Neutrophils # 8.3 H (1.8-7.7) K/mm3 APTT (24.2-36.6) Sec. Heparin Anti-Xa Level (0.3-0.7) U.I./ml Carbon Dioxide 21 L (22-30) mmol/L Creatinine 0.6 L (0.7-1.2) mg/dL Glucose 138 H (65-100) mg/dL POC Glucose (70-105) Phosphorus 2.20 L D (2.5-4.5) mg/dL
[2018-06-13] MEDS: LOVENOX SUB-Q SCH ×2 (10:32→22:02)
[2018-06-13] MEDS: BENADRYL IV PRN (12:14)
--- NOTE | 2018-06-13 16:39 | Progress Note ---
Assessment and Plan 42-year-old female who presents with right chest exit site infection, and bacteremia with history of fever and chills with catheter usage. 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 Status post intervention with improvement of outflow and no further episodes of syncope and facial cyanosis. Infected catheter removed. New catheter placed with a new access site above the existing catheter. Recommend anticoagulation for as long as patient needs central catheter (for TPN), which may be for life. Discussed with patient. Subjective Date of service: 06/13/18 Interval history: Has some right chest pain at the site of tunneled catheter placement and removal. Some headache which occurs after procedure. No further head swelling or left arm swelling. Still has some right arm swelling. Feeling better. Objective - Constitutional Vitals: Vital Signs - 12hr 06/13/18 06/13/18 05:02 11:42 Temperature 98.2 F 98.2 F Pulse Rate 75 89 Respiratory 18 18 Rate Blood Pressure 86/44 126/87 O2 Sat by Pulse 95 98 Oximetry General appearance: Present: mild distress (right chest discomfort with palpation) - EENT Eyes: EOM intact - Neck Neck: other (right arm swelling) - Respiratory Respiratory effort: normal Extremities: normal temperature, normal color - Gastrointestinal General gastrointestinal: Present: soft - Psychiatric Psychiatric: appropriate mood/affect, cooperative - Labs CBC & Chem 7: 06/13/18 00:34 06/13/18 04:00 Labs: Abnormal lab results 06/12/18 06/12/18 06/13/18 Range/Units 17:45 21:06 00:34 WBC 12.1 H (4.5-11.0) K/mm3 RBC 3.26 L (3.65-5.03) M/mm3 Hgb 9.6 L (10.1-14.3) gm/dl Hct 29.2 L (30.3-42.9) % Armstrong % (Auto) 12.1 H (0.0-7.3) % Armstrong # 1.5 H (0.0-0.8) K/mm3 Seg Neutrophils # 8.3 H (1.8-7.7) K/mm3 Heparin Anti-Xa Level 0.28 L (0.3-0.7) U.I./ml Carbon Dioxide (22-30) mmol/L Creatinine (0.7-1.2) mg/dL Glucose (65-100) mg/dL POC Glucose 130 H (70-105) Phosphorus (2.5-4.5) mg/dL 06/13/18 06/13/18 Range/Units 04:00 10:31 WBC (4.5-11.0) K/mm3 RBC (3.65-5.03) M/mm3 Hgb (10.1-14.3) gm/dl Hct (30.3-42.9) % Armstrong % (Auto) (0.0-7.3) % Armstrong # (0.0-0.8) K/mm3 Seg Neutrophils # (1.8-7.7) K/mm3 Heparin Anti-Xa Level (0.3-0.7) U.I./ml Carbon Dioxide 21 L (22-30) mmol/L Creatinine 0.6 L (0.7-1.2) mg/dL Glucose 138 H (65-100) mg/dL POC Glucose 114 H (70-105) Phosphorus 2.20 L D (2.5-4.5) mg/dL Medications & Allergies - Medications Allergies/Adverse Reactions: Allergies ketorolac [From Toradol] Allergy (Verified 06/07/18 16:06) Swelling metoclopramide [From Reglan] Allergy (Verified 06/07/18 16:06) Unknown Penicillins Allergy (Verified 06/07/18 16:06) Swelling prochlorperazine [From Compazine] Allergy (Verified 06/07/18 16:06) Unknown promethazine [From Phenergan] Allergy (Verified 06/07/18 16:06) Swelling tramadol Allergy (Verified 06/07/18 16:06) Swelling adhesive tape Adverse Reaction (Verified 06/07/18 16:06) Itching Apple Allergy (Uncoded 06/09/18 15:36) Swelling Sour cream Allergy (Uncoded 06/09/18 15:36) Swelling Whip cream Allergy (Uncoded 06/09/18 15:36) Swelling Home Medications: Home Medications Medication Instructions Recorded Confirmed Last Taken Type Ondansetron [Zofran ODT TAB] 4 mg PO Q4HR PRN 03/04/18 06/07/18 04/03/18 History 4mg Clindamycin [Clindamycin CAP] 300 mg PO Q8H #21 cap 04/03/18 06/07/18 04/03/18 Rx 300mg HYDROcodone/APAP 5-325 [[place] 1 each PO BID PRN #10 tablet 04/15/18 06/07/18 Unknown Rx 5-325 mg TAB] Active Medications: Generic Name Dose Route Start Last Admin Trade Name Aguilarq PRN Reason Stop Dose Admin Acetaminophen 325 mg 06/11/18 00:02 06/11/18 00:25 Tylenol [place] 325 mg Q6H PRN Administration Fever >101 Acetaminophen/Codeine Phosphate 1 tab 06/08/18 12:52 06/13/18 09:35 Tylenol #3 PO 1 tab Q4H PRN Administration Pain, Moderate (4-6) Dexamethasone 4 mg 06/13/18 10:00 06/13/18 09:49 Decadron IV Not Given Q12HR HERI Dextrose 50 ml 06/07/18 20:56 06/10/18 18:39 D50w (25gm) Syringe IV 50 ml PRN PRN Administration Hypoglycemia Diphenhydramine HCl 25 mg 06/13/18 10:27 06/13/18 12:14 Benadryl IV 25 mg Q6H PRN Administration Itching Enoxaparin Sodium 80 mg 06/13/18 10:00 06/13/18 10:32 Lovenox 1 mg/kg (80 mg) 80 mg SUB-Q Administration Q12HR HERI Famotidine 20 mg 06/07/18 22:00 06/13/18 12:07 Pepcid IV 20 mg Q12H HERI Administration Dextrose/Sodium Chloride 1,000 mls @ 42 mls/hr 06/09/18 16:00 06/11/18 16:21 D5ns IV 42 mls/hr DIRECT HERI Administration Sodium Chloride 500 mls @ 50 mls/hr 06/12/18 10:00 06/12/18 10:44 Nacl 0.9% 500 Ml IV 100 mls DIRECT HERI Administration Amino Acids/Electrolytes/Dextrose 2,400 mls @ 100 mls/hr 06/12/18 20:00 06/13/18 00:19 Tpn Adult IV 06/13/18 19:59 100 mls/hr DAILY@2000 HERI Administration Protocol Heparin Sodium/Sodium Chloride 25,000 unit in 500 mls @ 23 mls/hr 06/12/18 15:00 06/13/18 00:08 Heparin/ 0.45% Nacl-25,000 Unit/500 Ml IV 1,250 units/hr TITR HERI 25 mls/hr Titration Protocol 1,150 UNITS/HR Levofloxacin/Dextrose 750 mg in 150 mls @ 100 mls/hr 06/12/18 16:00 06/13/18 09:35 Levaquin 750mg/150ml IV 06/19/18 15:59 100 mls/hr Q24HR HERI Administration Protocol Fat Emulsion Intravenous 250 mls @ 21 mls/hr 06/13/18 20:00 Intralipid 20% IV 06/14/18 08:00 DAILY@[email or web address] [facility] Amino Acids/Electrolytes/Dextrose 2,400 mls @ 100 mls/hr 06/13/18 20:00 Tpn Adult IV 06/14/18 19:59 DAILY@[email or web address] [facility] Protocol Insulin Human Lispro 0 unit 06/07/18 22:00 06/13/18 16:26 Humalog SUB-Q Not Given Q4HR [facility] Protocol Morphine Sulfate 2 mg 06/07/18 20:56 06/13/18 12:06 Morphine IV 2 mg Q4H PRN Administration Pain, Moderate (4-6) Ondansetron HCl 4 mg 06/07/18 20:56 06/12/18 14:02 Zofran IV 4 mg Q8H PRN Administration Nausea And Vomiting Sodium Chloride 10 ml 06/07/18 22:00 06/13/18 10:36 Sodium Chloride Flush Syringe 10 Ml IV 10 ml BID HERI Administration Sodium Chloride 10 ml 06/07/18 20:56 Sodium Chloride Flush Syringe 10 Ml IV PRN PRN LINE FLUSH
--- NOTE | 2018-06-13 17:02 | Progress Note ---
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 Possible involvement of the left innominate vein and part of the SVC. Has a history of SVC stenosis. Successful central vein thrombectomy, tunneled catheter removal and placement of a new tunneled catheter by vascular s/p heparin drip following the procedure, changed to lovenox today /Sepsis with bacteremia, POA Possible from bacteremia associated with Ramirez catheter Blood cx growing Acintobacter Bacteremia: 2 out of 4 bottles, - continue Meropenem 1 gm every 8 hours -f/u repeat blood cultures ID and vascular surgeon consulted Sepsis pathway initiated /History of diabetic gastroparesis Patient states that she has been nothing by mouth for the past 3 years and on TPN for the past 2 years she also gets TPN alternating with tube feedings Daily. Nutrition consult requested She denies ever taking insulin or oral hypoglycemic agents cont to monitor BG / Metabolic acidosis Mild and most likely secondary to sepsis, We'll monitor, cont Iv fluid /hypoglycemic event, D50 as needed, added d5/NS - placed on dexamethasone, ordered cortisol level - pending / GERD (gastroesophageal reflux disease) Cont on Pepcid IV twice a day Brief History: The patient is a 42-year-old female presented with history of gastroparesis and diabetes not on medication and nothing by mouth for 3 years presents to the ED chief complaint of fever and body aches. CTA chest: 1. No evidence of an acute intrathoracic process. 2. No evidence of pulmonary artery emboli. 3. No significant change in pleural-based nodular consolidation anterior aspect left upper lobe. 4. Percutaneous gastrostomy tube with tip in the stomach. CXR: No acute pulmonary disease.. Physical exam: General appearance: Present: no acute distress, well-nourished - EENT Eyes: PERRL, EOM intact ENT: hearing intact, clear oral mucosa Ears: bilateral: normal - Neck Neck: supple, normal ROM - Respiratory Respiratory effort: normal Respiratory: bilateral: CTA - Cardiovascular Rhythm: regular Heart Sounds: Present: S1 & S2. Absent: gallop, rub Details: tender on the right side of the chest on the catheter area Extremities: pulses intact, No edema, normal color, Full ROM - Gastrointestinal General gastrointestinal: Present: soft, non-tender, non-distended, normal bowel sounds - Integumentary Integumentary: clear, warm, dry - Musculoskeletal Musculoskeletal: 1, strength equal bilaterally - Neurologic Neurologic: moves all extremities - Psychiatric Psychiatric: memory intact, appropriate mood/affect, intact judgment & insight Subjective Date of service: 06/13/18 Objective - Constitutional Vitals: Vital Signs - 12hr 06/13/18 06/13/18 06/13/18 05:02 11:42 16:48 Temperature 98.2 F 98.2 F 97.7 F Pulse Rate 75 89 77 Respiratory 18 18 16 Rate Blood Pressure 86/44 126/87 118/69 O2 Sat by Pulse 95 98 98 Oximetry - Labs CBC & Chem 7: 06/13/18 00:34 06/13/18 04:00 Labs: Abnormal lab results 06/12/18 06/12/18 06/13/18 Range/Units 17:45 21:06 00:34 WBC 12.1 H (4.5-11.0) K/mm3 RBC 3.26 L (3.65-5.03) M/mm3 Hgb 9.6 L (10.1-14.3) gm/dl Hct 29.2 L (30.3-42.9) % Dare % (Auto) 12.1 H (0.0-7.3) % Dare # 1.5 H (0.0-0.8) K/mm3 Seg Neutrophils # 8.3 H (1.8-7.7) K/mm3 Heparin Anti-Xa Level 0.28 L (0.3-0.7) U.I./ml Carbon Dioxide (22-30) mmol/L Creatinine (0.7-1.2) mg/dL Glucose (65-100) mg/dL POC Glucose 130 H (70-105) Phosphorus (2.5-4.5) mg/dL 06/13/18 06/13/18 Range/Units 04:00 10:31 WBC (4.5-11.0) K/mm3 RBC (3.65-5.03) M/mm3 Hgb (10.1-14.3) gm/dl Hct (30.3-42.9) % Dare % (Auto) (0.0-7.3) % Dare # (0.0-0.8) K/mm3 Seg Neutrophils # (1.8-7.7) K/mm3 Heparin Anti-Xa Level (0.3-0.7) U.I./ml Carbon Dioxide 21 L (22-30) mmol/L Creatinine 0.6 L (0.7-1.2) mg/dL Glucose 138 H (65-100) mg/dL POC Glucose 114 H (70-105) Phosphorus 2.20 L D (2.5-4.5) mg/dL
[2018-06-13] MEDS ORDERED: INTRALIPID 20% 250 ML IV SCH (20:00)
[2018-06-13] MEDS ORDERED: TPN ADULT 2,400 ML IV SCH (20:00)
[2018-06-13] MEDS: ZOFRAN IV PRN (22:08)
[2018-06-14] MEDS: MORPHINE IV PRN ×6 (02:32→20:50)
[2018-06-14] MEDS: HumaLOG SUB-Q SCH ×6 (05:54→21:57)
[2018-06-14 06:27] LABS: Hematocrit 28.5 % (30.3-42.9)
[2018-06-14 06:48] LABS: BUN/Creatinine Ratio 23; Blood Urea Nitrogen 14 mg/dL (7-17); Calcium 8.7 mg/dL (8.4-10.2); Hemolysis Index 11
[2018-06-14] MEDS: ZOFRAN IV PRN (06:59)
[2018-06-14] MEDS: DECADRON IV SCH ×2 (09:28→21:52)
[2018-06-14] MEDS: LEVAQUIN 750MG/150ML 750 MG/150 ML BAG IV SCH (09:28)
[2018-06-14] MEDS: BENADRYL IV PRN ×2 (09:29→16:47)
[2018-06-14] MEDS: LOVENOX SUB-Q SCH ×2 (09:30→21:51)
[2018-06-14] MEDS: SODIUM CHLORIDE FLUSH SYRINGE 10 ML IV SCH ×2 (09:30→22:26)
[2018-06-14] MEDS: PEPCID IV SCH ×2 (09:34→21:51)
--- NOTE | 2018-06-14 11:22 | Discharge Summary ---
Providers - Providers Date of Admission: 06/07/18 20:57 Date of discharge: 06/16/18 Attending physician: MARVIN RODRIGEZ 06/07/18 20:56 Consult to Physician [CONS] Routine Comment: Consulting Provider: MISAEL BURGOS Physician Instructions: Reason For Exam: sepsis 06/07/18 21:03 Consult to Dietitian/Nutrition [CONS] Routine Physician Instructions: Reason For Exam: Reason for Consult: Write/Manage TPN/PPN 06/08/18 10:26 Consult to Dietitian/Nutrition [CONS] Routine Physician Instructions: Reason For Exam: Reason for Consult: Write/Manage TPN/PPN 06/09/18 08:43 Consult to Physician [CONS] Routine Comment: Consulting Provider: MAURICIO SOTO Physician Instructions: Reason For Exam: pain at the [facility] Primary care physician: MAURICIO WILSON Hospitalization Reason for admission: 06/14/18 Condition: Fair Pertinent studies: CTA chest: 1. No evidence of an acute intrathoracic process. 2. No evidence of pulmonary artery emboli. 3. No significant change in pleural-based nodular consolidation anterior aspect left upper lobe. 4. Percutaneous gastrostomy tube with tip in the stomach. CXR: No acute pulmonary disease.. Microbiology 06/07/18 16:26 Peripheral/Venous Blood Culture - Final A.baumannii/Haemolyticus 06/07/18 16:26 Peripheral/Venous Blood Culture - Final A.baumannii/Haemolyticus 06/09/18 19:47 Peripheral/Venous Blood Culture - Preliminary NO GROWTH AFTER 4 DAYS 06/09/18 19:30 Peripheral/Venous Blood Culture - Preliminary NO GROWTH AFTER 4 DAYS 06/09/18 11:00 Other (Please Specify:) - Drainage Surgical Culture - Final 06/07/18 16:54 Urine,Clean Catch Urine Culture - Final Hospital course: Brief History: The patient is a 42-year-old female presented with history of gastroparesis and diabetes not on medication and nothing by mouth for 3 years presents to the ED chief complaint of fever and body aches. 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 Possible involvement of the left innominate vein and part of the SVC. Has a history of SVC stenosis. Successful central vein thrombectomy, tunneled catheter removal and placement of a new tunneled catheter by vascular s/p heparin drip following the procedure, then changed to lovenox from next day- will need to cont AC probably life long /Sepsis with bacteremia, POA Possible from bacteremia associated with Ramirez catheter Blood cx growing Acintobacter Bacteremia: 2 out of 4 bottles, - Placed on Meropenem 1 gm every 8 hours now switched to Levofloxacin 750 mg IV every 24 hours -Repeat blood cultures negative ID and vascular surgeon consulted -Will need Levofloxacin 750mg IV every 24 hours for total 7 days ending 06/19/18 at discharge (per discussion with Pharmacist) , Order sent to [facility] for approval /History of diabetic gastroparesis Patient states that she has been nothing by mouth for the past 3 years and on TPN for the past 2 years she also gets TPN alternating with tube feedings Daily. 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 Absent: gallop, rub Details: tender on the right side of the chest on the catheter area Extremities: pulses intact, No edema, normal color, Full ROM - Gastrointestinal General gastrointestinal: Present: soft, non-tender, non-distended, normal bowel sounds - Integumentary Integumentary: clear, warm, dry - Musculoskeletal Musculoskeletal: 1, strength equal bilaterally - Neurologic Neurologic: moves all extremities - Psychiatric Psychiatric: memory intact, appropriate mood/affect, intact judgment & insight Disposition: [id number]/[place]-[id number] [facility] Time spent for discharge: 34 minutes Core Measure Documentation - Palliative Care Palliative Care/ Comfort Measures: Not Applicable - Core Measures Any of the following diagnoses?: none Exam - Constitutional Vitals: Temp Pulse Resp BP Pulse Ox 97.8 F 84 18 94/55 94 06/14/18 06:39 06/14/18 06:39 06/14/18 06:39 06/14/18 06:39 06/14/18 06:39 Plan Activity: advance as tolerated Weight Bearing Status: Weight Bear as Tolerated Diet: other (TPN) Wound: per your surgeon's advice Follow up with: PRIMARY CARE, [Referring] - 3-5 Days Prescriptions: levoFLOXacin 250MG/50ML [Levaquin IV PREMIX] 750 mg IV Q24H #7 piggyback Enoxaparin [Lovenox] 80 mg SUB-Q Q12HR #30 syringe
[2018-06-14] MEDS: TYLENOL #3 PO PRN (13:39)
--- NOTE | 2018-06-14 16:34 | Progress Note ---
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 Possible involvement of the left innominate vein and part of the SVC. Has a history of SVC stenosis. Successful central vein thrombectomy, tunneled catheter removal and placement of a new tunneled catheter by vascular s/p heparin drip following the procedure, changed to lovenox after o/n drip /Sepsis with bacteremia, POA Possible from bacteremia associated with Ramirez catheter Blood cx growing Acintobacter Bacteremia: 2 out of 4 bottles, - Placed on Meropenem 1 gm every 8 hours now switched to Levofloxacin 750 mg IV every 24 hours -Repeat blood cultures negative ID and vascular surgeon consulted -Will continue Levofloxacin 750mg IV every 24 hours for total 7 days ending 06/19/18 at discharge (per ID) /History of diabetic gastroparesis Patient states that she has been nothing by mouth for the past 3 years and on TPN for the past 2 years she also gets TPN alternating with tube feedings Daily. Nutrition consult requested She denies ever taking insulin or oral hypoglycemic agents cont to monitor BG / Metabolic acidosis Mild and most likely secondary to sepsis, We'll monitor, cont Iv fluid /hypoglycemic event, D50 as needed, added d5/NS - placed on dexamethasone, ordered cortisol level - pending / GERD (gastroesophageal reflux disease) Cont on Pepcid IV twice a day Brief History: The patient is a 42-year-old female presented with history of gastroparesis and diabetes not on medication and nothing by mouth for 3 years presents to the ED chief complaint of fever and body aches. CTA chest: 1. No evidence of an acute intrathoracic process. 2. No evidence of pulmonary artery emboli. 3. No significant change in pleural-based nodular consolidation anterior aspect left upper lobe. 4. Percutaneous gastrostomy tube with tip in the stomach. CXR: No acute pulmonary disease.. Physical exam: General appearance: Present: no acute distress, well-nourished - EENT Eyes: PERRL, EOM intact ENT: hearing intact, clear oral mucosa Ears: bilateral: normal - Neck Neck: supple, normal ROM - Respiratory Respiratory effort: normal Respiratory: bilateral: CTA - Cardiovascular Rhythm: regular Heart Sounds: Present: S1 & S2. Absent: gallop, rub Details: tender on the right side of the chest on the catheter area Extremities: pulses intact, No edema, normal color, Full ROM - Gastrointestinal General gastrointestinal: Present: soft, non-tender, non-distended, normal bowel sounds - Integumentary Integumentary: clear, warm, dry - Musculoskeletal Musculoskeletal: 1, strength equal bilaterally - Neurologic Neurologic: moves all extremities - Psychiatric Psychiatric: memory intact, appropriate mood/affect, intact judgment & insight Subjective Date of service: 06/14/18 Interval history: Patient seen and examined feels better, wants to go home discharge pending on iv abx approval Objective - Constitutional Vitals: Vital Signs - 12hr 06/14/18 06/14/18 06:39 13:46 Temperature 97.8 F 97.5 F L Pulse Rate 84 89 Respiratory 18 16 Rate Blood Pressure 94/55 99/61 O2 Sat by Pulse 94 98 Oximetry - Labs CBC & Chem 7: 06/14/18 05:41 06/14/18 05:41 Labs: Abnormal lab results 06/14/18 06/14/18 Range/Units 05:41 05:41 Hgb 10.0 L (10.1-14.3) gm/dl Hct 28.5 L (30.3-42.9) % Creatinine 0.6 L (0.7-1.2) mg/dL Glucose 103 H (65-100) mg/dL
[2018-06-14] MEDS ORDERED: TPN ADULT 2,400 ML IV SCH (20:00)
[2018-06-15] MEDS: HumaLOG SUB-Q SCH ×6 (01:35→22:59)
[2018-06-15] MEDS: MORPHINE IV PRN ×4 (04:58→22:44)
[2018-06-15 08:00] LABS: BUN/Creatinine Ratio 17; Blood Urea Nitrogen 15 mg/dL (7-17); Calcium 8.8 mg/dL (8.4-10.2); Hemolysis Index 7
[2018-06-15] MEDS: DECADRON IV SCH ×2 (09:18→22:45)
[2018-06-15] MEDS: LOVENOX SUB-Q SCH ×2 (09:33→22:45)
[2018-06-15] MEDS: PEPCID IV SCH ×2 (09:34→22:45)
[2018-06-15] MEDS: LEVAQUIN 750MG/150ML 750 MG/150 ML BAG IV SCH (09:59)
--- NOTE | 2018-06-15 12:59 | Progress Note ---
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 Possible involvement of the left innominate vein and part of the SVC. Has a history of SVC stenosis. Successful central vein thrombectomy, tunneled catheter removal and placement of a new tunneled catheter by vascular s/p heparin drip following the procedure, changed to lovenox bid after o/n drip /Sepsis with bacteremia, POA Possible from bacteremia associated with Ramirez catheter Blood cx growing Acintobacter Bacteremia: 2 out of 4 bottles, - Placed on Meropenem 1 gm every 8 hours now switched to Levofloxacin 750 mg IV every 24 hours -Repeat blood cultures negative ID and vascular surgeon consulted -Will need Levofloxacin 750mg IV every 24 hours for total 7 days ending 06/19/18 at discharge (per ID) /History of diabetic gastroparesis Patient states that she has been nothing by mouth for the past 3 years and on TPN for the past 2 years she also gets TPN alternating with tube feedings Daily. Nutrition consult requested She denies ever taking insulin or oral hypoglycemic agents cont to monitor BG / Metabolic acidosis Mild and most likely secondary to sepsis, We'll monitor, cont Iv fluid /hypoglycemic event, D50 as needed, added d5/NS - placed on dexamethasone, ordered cortisol level - pending / GERD (gastroesophageal reflux disease) Cont on Pepcid IV twice a day Brief History: The patient is a 42-year-old female presented with history of gastroparesis and diabetes not on medication and nothing by mouth for 3 years presents to the ED chief complaint of fever and body aches. CTA chest: 1. No evidence of an acute intrathoracic process. 2. No evidence of pulmonary artery emboli. 3. No significant change in pleural-based nodular consolidation anterior aspect left upper lobe. 4. Percutaneous gastrostomy tube with tip in the stomach. CXR: No acute pulmonary disease.. Physical exam: General appearance: Present: no acute distress, well-nourished - EENT Eyes: PERRL, EOM intact ENT: hearing intact, clear oral mucosa Ears: bilateral: normal - Neck Neck: supple, normal ROM - Respiratory Respiratory effort: normal Respiratory: bilateral: CTA - Cardiovascular Rhythm: regular Heart Sounds: Present: S1 & S2. Absent: gallop, rub Details: tender on the right side of the chest on the catheter area Extremities: pulses intact, No edema, normal color, Full ROM - Gastrointestinal General gastrointestinal: Present: soft, non-tender, non-distended, normal bowel sounds - Integumentary Integumentary: clear, warm, dry - Musculoskeletal Musculoskeletal: 1, strength equal bilaterally - Neurologic Neurologic: moves all extremities - Psychiatric Psychiatric: memory intact, appropriate mood/affect, intact judgment & insight Subjective Date of service: 06/15/18 Interval history: Patient seen and examined feels better, wants to go home discharge pending on iv abx approval Objective - Constitutional Vitals: Vital Signs - 12hr 06/15/18 05:52 Temperature 98.2 F Pulse Rate 86 Respiratory 22 Rate Blood Pressure 91/48 O2 Sat by Pulse 94 Oximetry - Labs CBC & Chem 7: 06/14/18 05:41 06/15/18 07:05 Labs: Abnormal lab results 06/15/18 Range/Units 07:05 Glucose 102 H (65-100) mg/dL Phosphorus 5.30 H D (2.5-4.5) mg/dL
[2018-06-15] MEDS: BENADRYL IV PRN (13:02)
[2018-06-15] MEDS: TYLENOL #3 PO PRN (16:19)
[2018-06-15] MEDS: ZOFRAN IV PRN (16:19)
[2018-06-15] MEDS: SODIUM CHLORIDE FLUSH SYRINGE 10 ML IV SCH ×2 (19:48→22:59)
[2018-06-15] MEDS ORDERED: TPN ADULT 2,400 ML IV SCH (20:00)
[2018-06-16 04:57] LABS: Hemoglobin 10.9 gm/dl (10.1-14.3)
[2018-06-16] MEDS: MORPHINE IV PRN ×4 (05:43→22:53)
[2018-06-16] MEDS: HumaLOG SUB-Q SCH ×4 (05:50→13:30)
--- NOTE | 2018-06-16 09:51 | Progress Note ---
Assessment and Plan Cultures: 06/07/18 Blood: Acintobacter 2 out of 4 bottles, 06/07/18 Urine culture: 10-100K mixed culture of >2 organisms 06/09/18 Right Ramirez Cath: no growth to date 06/09/18 Blood: no growth thus far A/P: 42-year-old patient known to ID with a past medcial history of diabetes type 2, severe gastropparesis, s/p Port a cath palacement for TPN, J-tube and G-tube placement. Previous infected port a cath for TPN associated with sepsis with septic shock due to Klebsiella bacteremia. Klebsiella oxytoca bacteremia was 6 of 6 bottles positive on 09/02, blood cx 09/03 neg. Port-A-cath s/p removal on 09/04/17. She then developed a chest wall collection. CT chest showed a collection 2.6x2.5x1.6 cm with a small bubble of air s/p bediside I +D. Port cx + Stenotrophomona maltophilia. She was treated with Levaquin 750 mg IV qday for 2 weeks until 09/22/17 via a new PICC line to her right arm. On 01/27/18 She was readmitted and blood cultures grew MSSA bateremia, likely from PICC site i nfection/thrombus. PICC line was removed and a right Ramirez catheter was placed. She was discharged home on Vancomycin 1 gm IV every 12 hours until 02/23/18. Now admitted with: 1.Sepsis on Admission;Resolved. Etiology unclear, +/- DVT, Acintobacter bacteremia. Patient states that about 3 weeks ago she was diagnosed with a DVT in the right arm and was initially started on Eliquis and then transitioned to lovenox. Bacteremia, Blood cultures were drawn and show GNR 2 out of 4 bottles. U/A is negative for a UTI, Urine culture shows mixed culture of greater than 2 organisms. CXR shows no acute pulmonary disease. Chest CT show No significant change in pleural-based nodular consolidation anterior aspect left upper lobe, TTE shows no valvular vegetation. HIV negative 2. Acintobacter Bacteremia: 2 out of 4 bottles, 1 bottle indeterminate to cefepime, switched to Levofloxacin. Source unclear, most likely Ramirez catheter.However, cultures obtained from Ramirez catheter show no growth to date. 3. DVT Right Arm: CT scans demonstrates occlusion of the right subclavian, and innominate vein. Possible involvement of the left innominate vein and part of the SVC. Has a history of SVC stenosis. Patient also has DVT with significant central symptoms with SVC syndrome. s/p angioplasty of the right innominate vein, left subclavian and innominate vein, and SVC and fluoroscopically guided placement of a de juancho right internal jugular tunneled cuffed catheter 06/12/18. Anticipate being discharged home on levofloxacin 750mg IV every 24 hours for total 7 days. 4. Diabetic Gastroparesis: has had nothing by mouth for the past 3 years, on TPN for the past 2 years. Gets TPN alternating with tube feedings. Plan: -f/u repeat blood cultures -continue Levofloxacin 750 mg IV every 24 hours -switch to Levofloxacin 750mg IV every 24 hours for total 7 days ending 06/19/18 at discharge (per discussion with Pharmacist) Order sent to case management f/u with ID clinic on 07-02-18 Dr Ghosh recommends ethanol lock therapy to Ramirez catheter, will consider order for home health [facility] M: [phone] O:[phone] Subjective Date of service: 06/16/18 Interval history: Patient seen and examined. Generalized weakness, but states that she is feeling better. Right Ramirez catheter site tender, no redness. Discussion about OPAT a nd follow up appointment with ID, verbalized understanding. Objective - Exam Narrative Exam: Constitutional: Alert, cooperative, generalized weakness, No acute distress Head, Ears, Nose: Normocephalic, atraumatic. External ears, nose normal Eyes: Conjunctivae/corneas clear. No icterus. No ptosis. Neck: Supple, no meningeal signs, + right Ramirez Catheter, + tenderness Oral: dentition good, no thrush Cardiovascular: S1, S2 normal. Respiratory: Good air entry, clear to auscultation bilaterally GI: Soft, non-tender; bowel sounds normal. No peritoneal signs, + J tube Musculoskeletal: No pedal edema, no cyanosis., +right arm tenderness Skin: No rash or abscess. Hem/Lymphatic: No palpable cervical or supraclavicular nodes. No lymphangitis Psych: Mood ok. Affect normal Neurological: Awake, alert, oriented. - Constitutional Vitals: Vital Signs Temp Pulse Resp BP Pulse Ox 98.3 F 91 H 24 95/60 98 06/16/18 05:35 06/15/18 21:32 06/16/18 05:35 06/16/18 05:35 06/15/18 21:32 Temperature -Last 24 Hours Temperature 98.3 F Temperature 98.6 F Temperature 98.6 F Temperature 97.5 F Temperature 97.3 F - Labs CBC & Chem 7: 06/16/18 11:14 06/16/18 09:40
[2018-06-16 10:11] LABS: BUN/Creatinine Ratio 27; Blood Urea Nitrogen 19 mg/dL (7-17); Calcium 9.3 mg/dL (8.4-10.2); Hemolysis Index 11
[2018-06-16] MEDS: ZOFRAN IV PRN ×2 (10:34→22:54)
[2018-06-16] MEDS: LEVAQUIN 750MG/150ML 750 MG/150 ML BAG IV SCH (10:41)
[2018-06-16] MEDS: PEPCID IV SCH ×2 (10:41→22:55)
[2018-06-16] MEDS: LOVENOX SUB-Q SCH ×2 (10:42→22:55)
[2018-06-16] MEDS: SODIUM CHLORIDE FLUSH SYRINGE 10 ML IV SCH ×2 (11:04→22:55)
[2018-06-16 11:30] LABS: Basophils # (Auto) 0.1 K/mm3 (0.0-0.1); Basophils % (Auto) 0.8 % (0.0-1.8); Hematocrit 32.7 % (30.3-42.9); Hemoglobin 10.9 gm/dl (10.1-14.3); Lymphocytes # (Auto) 2.5 K/mm3 (1.2-5.4); Lymphocytes % (Auto) 37.6 % (13.4-35.0); Mean Corpuscular HGB Conc 34 % (30-34); Mean Corpuscular Volume 90 fl (79-97); Monocytes # (Auto) 0.6 K/mm3 (0.0-0.8); Monocytes % (Auto) 9.7 % (0.0-7.3); Platelet Count 256 K/mm3 (140-440); Red Blood Count 3.65 M/mm3 (3.65-5.03)
[2018-06-16] MEDS: BENADRYL IV PRN (13:21)
[2018-06-16] MEDS: TYLENOL #3 PO PRN (13:25)
[2018-06-16] MEDS: DECADRON IV SCH (14:40)
--- NOTE | 2018-06-16 16:20 | Progress Note ---
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 Possible involvement of the left innominate vein and part of the SVC. Has a history of SVC stenosis. Successful central vein thrombectomy, tunneled catheter removal and placement of a new tunneled catheter by vascular s/p heparin drip following the procedure, then changed to lovenox from next day- will need to cont AC probably life long /Sepsis with bacteremia, POA Possible from bacteremia associated with Hodge catheter Blood cx growing Acintobacter Bacteremia: 2 out of 4 bottles, - Placed on Meropenem 1 gm every 8 hours now switched to Levofloxacin 750 mg IV every 24 hours -Repeat blood cultures negative ID and vascular surgeon consulted -Will need Levofloxacin 750mg IV every 24 hours for total 7 days ending 06/19/18 at discharge (per ID) , Order sent to [facility] for approval /History of diabetic gastroparesis Patient states that she has been nothing by mouth for the past 3 years and on TPN for the past 2 years she also gets TPN alternating with tube feedings Daily. 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 Blood cx grew Acintobacter Bacteremia: 2 out of 4 bottles, also c/p pain at her hodge catheter site. Placed on abx, vascular and ID was consulted. CT scans demonstrates occlusion of the right subclavian, and innominate vein. s/p Successful central vein thrombectomy, tunneled catheter removal and placement of a new tunneled catheter by vascular - will need to cont AC probably life long. Need iv levaquin for total 7 days, ending 06/19/18. CTA chest: 1. No evidence of an acute intrathoracic process. 2. No evidence of pulmonary artery emboli. 3. No significant change in pleural-based nodular consolidation anterior aspect left upper lobe. 4. Percutaneous gastrostomy tube with tip in the stomach. CXR: No acute pulmonary disease.. Physical exam: General appearance: Present: no acute distress, well-nourished - EENT Eyes: PERRL, EOM intact ENT: hearing intact, clear oral mucosa Ears: bilateral: normal - Neck Neck: supple, normal ROM - Respiratory Respiratory effort: normal Respiratory: bilateral: CTA - Cardiovascular Rhythm: regular Heart Sounds: Present: S1 & S2. Absent: gallop, rub Details: tender on the right side of the chest on the catheter area Extremities: pulses intact, No edema, normal color, Full ROM - Gastrointestinal General gastrointestinal: Present: soft, non-tender, non-distended, normal bowel sounds - Integumentary Integumentary: clear, warm, dry - Musculoskeletal Musculoskeletal: 1, strength equal bilaterally - Neurologic Neurologic: moves all extremities - Psychiatric Psychiatric: memory intact, appropriate mood/affect, intact judgment & insight Subjective Date of service: 06/16/18 Interval history: Patient seen and examined feels better, wants to go home discharge pending on iv abx approval and setup Objective - Constitutional Vitals: Vital Signs - 12hr 06/16/18 05:35 Temperature 98.3 F Respiratory 24 Rate Blood Pressure 95/60 - Labs CBC & Chem 7: 06/16/18 11:14 06/16/18 09:40 Labs: Abnormal lab results 06/16/18 06/16/18 06/16/18 Range/Units 09:40 11:14 13:31 Lymph % (Auto) 37.6 H (13.4-35.0) % Desha % (Auto) 9.7 H (0.0-7.3) % Sodium 134 L (137-145) mmol/L Chloride 97.2 L (98-107) mmol/L BUN 19 H (7-17) mg/dL POC Glucose 108 H (70-105)
[2018-06-16] MEDS ORDERED: TPN ADULT 2,400 ML IV SCH (20:00)
[2018-06-16] MEDS ORDERED: INTRALIPID 20% 250 ML IV SCH (20:00)
[2018-06-16] MEDS: DECADRON PO SCH (22:54)
[2018-06-17] MEDS: SODIUM CHLORIDE FLUSH SYRINGE 10 ML IV PRN ×2 (01:42→05:54)
[2018-06-17] MEDS: BENADRYL IV PRN ×3 (01:42→21:00)
[2018-06-17] MEDS: MORPHINE IV PRN ×4 (05:54→20:04)
[2018-06-17 07:14] LABS: BUN/Creatinine Ratio 25; Blood Urea Nitrogen 20 mg/dL (7-17); Calcium 9.4 mg/dL (8.4-10.2); Hemolysis Index 16
[2018-06-17] MEDS: LEVAQUIN 750MG/150ML 750 MG/150 ML BAG IV SCH (09:09)
[2018-06-17] MEDS: DECADRON PO SCH ×2 (09:22→21:03)
[2018-06-17] MEDS: LOVENOX SUB-Q SCH ×2 (09:22→21:01)
[2018-06-17] MEDS: PEPCID IV SCH ×2 (09:22→21:05)
[2018-06-17] MEDS: SODIUM CHLORIDE FLUSH SYRINGE 10 ML IV SCH ×2 (09:23→21:03)
--- NOTE | 2018-06-17 09:45 | Progress Note ---
Assessment and Plan Cultures: 06/07/18 Blood: Acintobacter 2 out of 4 bottles, 06/07/18 Urine culture: 10-100K mixed culture of >2 organisms 06/09/18 Right Ramirez Cath: no growth to date 06/09/18 Blood: no growth thus far A/P: 42-year-old patient known to ID with a past medcial history of diabetes type 2, severe gastropparesis, s/p Port a cath palacement for TPN, J-tube and G-tube placement. Previous infected port a cath for TPN associated with sepsis with septic shock due to Klebsiella bacteremia. Klebsiella oxytoca bacteremia was 6 of 6 bottles positive on 09/02, blood cx 09/03 neg. Port-A-cath s/p removal on 09/04/17. She then developed a chest wall collection. CT chest showed a collection 2.6x2.5x1.6 cm with a small bubble of air s/p bediside I +D. Port cx + Stenotrophomona maltophilia. She was treated with Levaquin 750 mg IV qday for 2 weeks until 09/22/17 via a new PICC line to her right arm. On 01/27/18 She was readmitted and blood cultures grew MSSA bateremia, likely from PICC site i nfection/thrombus. PICC line was removed and a right Ramirez catheter was placed. She was discharged home on Vancomycin 1 gm IV every 12 hours until 02/23/18. Now admitted with: 1.Sepsis on Admission;Resolved. Etiology unclear, DVT, Acintobacter bacteremia. Patient states that about 3 weeks ago she was diagnosed with a DVT in the right arm and was initially started on Eliquis and then transitioned to lovenox. Bacteremia, Blood cultures were drawn and show GNR 2 out of 4 bottles. U/A is negative for a UTI, Urine culture shows mixed culture of greater than 2 organisms. CXR shows no acute pulmonary disease. Chest CT show No significant change in pleural-based nodular consolidation anterior aspect left upper lobe, TTE shows no valvular vegetation. HIV negative 2. Acintobacter Bacteremia: 2 out of 4 bottles, 1 bottle indeterminate to cefepime, switched to Levofloxacin. Source unclear, most likely Ramirez catheter.However, cultures obtained from Ramirez catheter show no growth to date. 3. DVT Right Arm: CT scans demonstrates occlusion of the right subclavian, and innominate vein. Possible involvement of the left innominate vein and part of the SVC. Has a history of SVC stenosis. Patient also has DVT with significant central symptoms with SVC syndrome. s/p angioplasty of the right innominate vein, left subclavian and innominate vein, and SVC and fluoroscopically guided placement of a de juancho right internal jugular tunneled cuffed catheter 06/12/18. Anticipate being discharged home on levofloxacin 750mg IV every 24 hours for total 7 days. 4. Diabetic Gastroparesis: has had nothing by mouth for the past 3 years, on TPN for the past 2 years. Gets TPN alternating with tube feedings. Plan: -f/u repeat blood cultures -continue Levofloxacin 750 mg IV every 24 hours -Anticipate discharge on Levofloxacin 750mg IV every 24 hours for total 7 days ending 06/19/18 at discharge (per discussion with Pharmacist) -f/u with ID clinic on 07-02-18 -Dr Ghosh recommends ethanol lock therapy to Ramirez catheter, will consider order for home health -Awaiting outpatient antibiotic arrangements with home health [facility] M: [phone] O:[phone] Subjective Date of service: 06/17/18 Interval history: Patient seen and examined. Generalized weakness, but states that she is feeling better. Right Ramirez catheter site tender, no redness. Discussion about OPAT and follow up appointment with ID, verbalized understanding. Objective - Exam Narrative Exam: Constitutional: Alert, cooperative, generalized weakness, No acute distress Head, Ears, Nose: Normocephalic, atraumatic. External ears, nose normal Eyes: Conjunctivae/corneas clear. No icterus. No ptosis. Neck: Supple, no meningeal signs, + right Ramirez Catheter, + tenderness Oral: dentition good, no thrush Cardiovascular: S1, S2 normal. Respiratory: Good air entry, clear to auscultation bilaterally GI: Soft, non-tender; bowel sounds normal. No peritoneal signs, + J tube Musculoskeletal: No pedal edema, no cyanosis., +right arm tenderness Skin: No rash or abscess. Hem/Lymphatic: No palpable cervical or supraclavicular nodes. No lymphangitis Psych: Mood ok. Affect normal Neurological: Awake, alert, oriented. - Constitutional Vitals: Vital Signs Temp Pulse Resp BP Pulse Ox 98.3 F 85 24 105/58 99 06/17/18 05:15 06/16/18 22:08 06/17/18 05:15 06/17/18 05:15 06/16/18 22:08 Temperature -Last 24 Hours Temperature 98.3 F Temperature 98.3 F Temperature 97.9 F Temperature 98.3 F - Labs CBC & Chem 7: 06/16/18 11:14 06/17/18 06:05 Labs: Abnormal lab results 06/16/18 06/16/18 06/16/18 Range/Units 09:40 11:14 13:31 Lymph % (Auto) 37.6 H (13.4-35.0) % Vance % (Auto) 9.7 H (0.0-7.3) % Sodium 134 L (137-145) mmol/L Chloride 97.2 L (98-107) mmol/L BUN 19 H (7-17) mg/dL Glucose (65-100) mg/dL POC Glucose 108 H (70-105) 06/16/18 06/17/18 06/17/18 Range/Units 23:52 05:17 06:05 Lymph % (Auto) (13.4-35.0) % Vance % (Auto) (0.0-7.3) % Sodium 133 L (137-145) mmol/L Chloride 97.9 L (98-107) mmol/L BUN 20 H (7-17) mg/dL Glucose 108 H (65-100) mg/dL POC Glucose 122 H 117 H (70-105)
[2018-06-17] MEDS: TYLENOL #3 PO PRN (12:25)
--- NOTE | 2018-06-17 14:44 | Progress Note ---
Assessment and Plan Assessment and plan: The patient is a 42-year-old female presented with history of gastroparesis and diabetes not on medication and nothing by mouth for 3 years on TPN presents to the ED chief complaint of fever and body aches. Blood cx grew Acintobacter Bacteremia: 2 out of 4 bottles, also c/p pain at her ramirez catheter site. Placed on abx, vascular and ID was consulted. CT scans demonstrates occlusion of the right subclavian, and innominate vein. s/p Successful central vein thrombectomy, tunneled catheter removal and placement of a new tunneled catheter by vascular - will need to cont AC probably life long. Need iv levaquin for total 7 days, ending 06/19/18. / DVT (deep venous thrombosis) with SVC syndrome Diagnosed on last admission CT scans demonstrates occlusion of the right subclavian, and innominate vein. Possible involvement of the left innominate vein and part of the SVC. Has a history of SVC stenosis. Successful central vein thrombectomy, tunneled catheter removal and placement of a new tunneled catheter by vascular s/p heparin drip following the procedure, then changed to lovenox from next day- will need to cont AC probably life long /Sepsis with bacteremia, POA Possible from bacteremia associated with Ramirez catheter Blood cx growing Acintobacter Bacteremia: 2 out of 4 bottles, - Placed on Meropenem 1 gm every 8 hours now switched to Levofloxacin 750 mg IV every 24 hours -Repeat blood cultures negative ID and vascular surgeon consulted -Will need Levofloxacin 750mg IV every 24 hours for total 7 days ending 06/19/18 at discharge (per ID) , Order sent to [facility] for approval /History of diabetic gastroparesis Patient states that she has been nothing by mouth for the past 3 years and on TPN for the past 2 years she also gets TPN alternating with tube feedings Daily. 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 Likely dc home tomorrow after arrangements made. History Interval history: Headache No chest pain Hospitalist Physical - Physical exam Narrative exam: GEN: Not in acute distress, lying in bed, HEENT: Normocephalic, atraumatic, Neck: supple, No JVD heart: S1 and S2 reg, no murmurs, rubs or gallop Lungs: Clear to auscultation bilaterally, no wheeze Abd:soft, non tender, non distended, normal bowel sounds Ext: No edema,no clubbing, no cyanosis, Neuro:Awake,alert,oriented X 3, no focal signs, moves all ext Psych: normal mood Skin:Multiple tattoos - Constitutional Vitals: Temp Pulse Resp BP Pulse Ox 98.3 F 92 H 20 88/55 95 06/17/18 11:42 06/17/18 11:43 06/17/18 11:42 06/17/18 11:42 06/17/18 11:43 General appearance: Present: mild distress (right chest discomfort with palpation) Results - Labs CBC & Chem 7: 06/16/18 11:14 06/17/18 06:05 Labs: Laboratory Last Values WBC 6.7 K/mm3 (4.5-11.0) 06/16/18 11:14 RBC 3.65 M/mm3 (3.65-5.03) 06/16/18 11:14 Hgb 10.9 gm/dl (10.1-14.3) 06/16/18 11:14 Hct 32.7 % (30.3-42.9) 06/16/18 11:14 MCV 90 fl (79-97) 06/16/18 11:14 MCH 30 pg (28-32) 06/16/18 11:14 MCHC 34 % (30-34) 06/16/18 11:14 RDW 14.0 % (13.2-15.2) 06/16/18 11:14 Plt Count 256 K/mm3 (140-440) 06/16/18 11:14 Lymph % (Auto) 37.6 % (13.4-35.0) H 06/16/18 11:14 Cotton % (Auto) 9.7 % (0.0-7.3) H 06/16/18 11:14 Eos % (Auto) 0.0 % (0.0-4.3) 06/16/18 11:14 Baso % (Auto) 0.8 % (0.0-1.8) 06/16/18 11:14 Lymph # 2.5 K/mm3 (1.2-5.4) 06/16/18 11:14 Cotton # 0.6 K/mm3 (0.0-0.8) 06/16/18 11:14 Eos # 0.0 K/mm3 (0.0-0.4) 06/16/18 11:14 Baso # 0.1 K/mm3 (0.0-0.1) 06/16/18 11:14 Seg Neutrophils % 51.9 % (40.0-70.0) 06/16/18 11:14 Seg Neutrophils # 3.5 K/mm3 (1.8-7.7) 06/16/18 11:14 PT 12.3 Sec. (12.2-14.9) 06/12/18 15:54 INR 0.87 (0.87-1.13) 06/12/18 15:54 APTT 52.3 Sec. (24.2-36.6) H 06/12/18 15:54 Heparin Anti-Xa Level 0.35 U.I./ml (0.3-0.7) 06/13/18 06:31 Sodium 133 mmol/L (137-145) L 06/17/18 06:05 Potassium 4.0 mmol/L (3.6-5.0) 06/17/18 06:05 Chloride 97.9 mmol/L (98-107) L 06/17/18 06:05 Carbon Dioxide 26 mmol/L (22-30) 06/17/18 06:05 Anion Gap 13 mmol/L 06/17/18 06:05 BUN 20 mg/dL (7-17) H 06/17/18 06:05 Creatinine 0.8 mg/dL (0.7-1.2) 06/17/18 06:05 Estimated GFR > 60 ml/min 06/17/18 06:05 BUN/Creatinine Ratio 25 % 06/17/18 06:05 Glucose 108 mg/dL (65-100) H 06/17/18 06:05 POC Glucose 98 (70-105) 06/17/18 11:46 Lactic Acid 0.60 mmol/L (0.7-2.0) L 06/08/18 00:28 Calcium 9.4 mg/dL (8.4-10.2) 06/17/18 06:05 Phosphorus 3.80 mg/dL (2.5-4.5) 06/17/18 06:05 Magnesium 2.10 mg/dL (1.7-2.3) 06/17/18 06:05 Total Bilirubin 0.30 mg/dL (0.1-1.2) 06/07/18 16:26 AST 48 units/L (5-40) H 06/07/18 16:26 ALT 78 units/L (7-56) H 06/07/18 16:26 Alkaline Phosphatase 161 units/L (35-129) H 06/07/18 16:26 Total Protein 8.4 g/dL (6.3-8.2) H 06/07/18 16:26 Albumin 4.6 g/dL (3.9-5) 06/07/18 16:26 Albumin/Globulin Ratio 1.2 % 06/07/18 16:26 Triglycerides 190 mg/dL (2-149) H 06/09/18 06:05 Total Cortisol 6.0 mcg/dL () 06/11/18 15:38 Urine Color Yellow (Yellow) 06/07/18 16:54 Urine Turbidity Clear (Clear) 06/07/18 16:54 Urine pH 6.0 (5.0-7.0) 06/07/18 16:54 Ur Specific [place] 1.023 (1.003-1.030) 06/07/18 16:54 Urine Protein <15 mg/dl mg/dL (Negative) 06/07/18 16:54 Urine Glucose (UA) Neg mg/dL (Negative) 06/07/18 16:54 Urine Ketones Neg mg/dL (Negative) 06/07/18 16:54 Urine Blood Neg (Negative) 06/07/18 16:54 Urine Nitrite Neg (Negative) 06/07/18 16:54 Urine Bilirubin Neg (Negative) 06/07/18 16:54 Urine Urobilinogen < 2.0 mg/dL (<2.0) 06/07/18 16:54 Ur Leukocyte Esterase Neg (Negative) 06/07/18 16:54 Urine WBC (Auto) < 1.0 /HPF (0.0-6.0) 06/07/18 16:54 Urine RBC (Auto) < 1.0 /HPF (0.0-6.0) 06/07/18 16:54 U Epithel Cells (Auto) 4.0 /HPF (0-13.0) 06/07/18 16:54 HIV 1&2 Antibody Rapid Non react (Non React) 06/13/18 00:34 HIV P24 Antigen Non react (Non React) 06/13/18 00:34 Influenza A (Rapid) Negative (Negative) 06/07/18 20:05 Influenza B (Rapid) Negative (Negative) 06/07/18 20:05 Blood Type O POSITIVE 06/12/18 04:42 Antibody Screen Negative 06/12/18 04:42 Active Medications - Current Medications Current Medications: Generic Name Dose Route Start Last Admin Trade Name Freq PRN Reason Stop Dose Admin Acetaminophen 325 mg 06/11/18 00:02 06/11/18 00:25 Tylenol MA 325 mg Q6H PRN Administration Fever >101 Acetaminophen/Codeine Phosphate 1 tab 06/08/18 12:52 06/17/18 12:25 Tylenol #3 PO 1 tab Q4H PRN Administration Pain, Moderate (4-6) Dexamethasone 4 mg 06/16/18 22:00 06/17/18 09:22 Decadron PO Not Given Q12HR HERI Dextrose 50 ml 06/07/18 20:56 06/10/18 18:39 D50w (25gm) Syringe IV 50 ml PRN PRN Administration Hypoglycemia Diphenhydramine HCl 25 mg 06/13/18 10:27 06/17/18 09:04 Benadryl IV 25 mg Q6H PRN Administration Itching Enoxaparin Sodium 80 mg 06/14/18 10:00 06/17/18 09:22 Lovenox SUB-Q 80 mg Q12HR HERI Administration Famotidine 20 mg 06/07/18 22:00 06/17/18 09:22 Pepcid IV 20 mg Q12H HERI Administration Dextrose/Sodium Chloride 1,000 mls @ 42 mls/hr 06/09/18 16:00 06/11/18 16:21 D5ns IV 42 mls/hr DIRECT HERI Administration Sodium Chloride 500 mls @ 50 mls/hr 06/12/18 10:00 06/12/18 10:44 Nacl 0.9% 500 Ml IV 100 mls DIRECT HERI Administration Levofloxacin/Dextrose 750 mg in 150 mls @ 100 mls/hr 06/12/18 16:00 06/17/18 09:09 Levaquin 750mg/150ml IV 06/19/18 15:59 100 mls/hr Q24HR HERI Administration Protocol Amino Acids/Electrolytes/Dextrose 2,400 mls @ 100 mls/hr 06/16/18 20:00 06/16/18 22:54 Tpn Adult IV 06/17/18 19:59 100 mls/hr DAILY@1999 HERI Administration Protocol Amino Acids/Electrolytes/Dextrose 1,999.9 mls @ 83.3 mls/hr 06/17/18 20:00 Tpn Adult IV 06/18/18 19:59 DAILY@1999 HERI Protocol Morphine Sulfate 2 mg 06/07/18 20:56 06/17/18 10:05 Morphine IV 2 mg Q4H PRN Administration Pain, Moderate (4-6) Ondansetron HCl 4 mg 06/07/18 20:56 06/16/18 22:54 Zofran IV 4 mg Q8H PRN Administration Nausea And Vomiting Sodium Chloride 10 ml 06/07/18 22:00 06/17/18 09:23 Sodium Chloride Flush Syringe 10 Ml IV 10 ml BID HERI Administration Sodium Chloride 10 ml 06/07/18 20:56 06/17/18 05:54 Sodium Chloride Flush Syringe 10 Ml IV 10 ml PRN PRN Administration LINE FLUSH Nutrition/Malnutrition Assess - Dietary Evaluation Nutrition/Malnutrition Findings: Nutrition Notes Start: 06/08/18 10:37 Freq: Status: Active Protocol: Document 06/17/18 13:43 CT (Rec: 06/17/18 13:53 CT [id number]) Co-Sign 06/17/18 13:43 NHALL Nutrition Notes Initial or Follow up Reassessment Current Diagnosis Diabetes,Sepsis Other Pertinent Diagnosis Gastroparesis, GERD, Catheter infection Current Diet PPN at 100 ml/hr Labs/Tests Na 133 Pertinent Medications Reviewed Height 5 ft 8 in Weight 79.6 kg [place] Body Weight (kg) 63.63 BMI 26.6 Subjective/Other Information Day 10 PPN. Percent of energy/protein needs met: 51%/100% Burn Absent Trauma Absent #1 Nutrition Diagnosis Inadequate oral intake Diagnosis Progress(for reassessment Continues documentation) Is patient on ventilator? No Is Patient Ambulatory and/or Out of Bed Yes REE-([facility]-ambulatory/OOB) [ 1949.350 [id number]] Calculation Used for Recommendations [facility] Additional Notes Pro needs 0.8-1g/k-78g/ day Fluid needs 1ml/kcal Nutrition Intervention Change Diet Order: CPN Nutrition Support: CPN decreased to 83.33mL/hr. Dextrose 10%. 175 mEq Na. Kcal 1,000 Protein (gm) 80 Carbohydrates (gm) 200 Fat (gm) 0 Fluid (mL) 2,000 Fiber (gm) 0 Goal #1 PN to meet nutritional needs as best possible Anticipated Discharge Needs: Home TPN Follow-Up By: 06/18/18 Additional Comments Labs in am: BMP, Mg, Phos
[2018-06-17] MEDS ORDERED: TPN ADULT 1,999.9 ML IV SCH (20:00)
[2018-06-18] MEDS: MORPHINE IV PRN ×3 (00:38→09:18)
[2018-06-18 05:55] LABS: BUN/Creatinine Ratio 23; Blood Urea Nitrogen 16 mg/dL (7-17); Hemolysis Index 2
[2018-06-18 05:56] LABS: Hematocrit 31.2 % (30.3-42.9); Hemoglobin 10.5 gm/dl (10.1-14.3)
[2018-06-18] MEDS: LOVENOX SUB-Q SCH (09:21)
[2018-06-18] MEDS: LEVAQUIN 750MG/150ML 750 MG/150 ML BAG IV SCH (09:22)
[2018-06-18] MEDS: DECADRON PO SCH (09:30)
[2018-06-18] MEDS: SODIUM CHLORIDE FLUSH SYRINGE 10 ML IV SCH (09:30)
[2018-06-18] MEDS: BENADRYL IV PRN (09:34)
[2018-06-18] MEDS: PEPCID IV SCH (09:35)
--- NOTE | 2018-06-18 09:58 | Progress Note ---
Assessment and Plan Cultures: 06/07/18 Blood: Acintobacter 2 out of 4 bottles, 06/07/18 Urine culture: 10-100K mixed culture of >2 organisms 06/09/18 Right Ramirez Cath: no growth 06/09/18 Blood: no growth A/P: 42-year-old patient known to ID with a past medcial history of diabetes type 2, severe gastropparesis, s/p Port a cath palacement for TPN, J-tube and G-tube placement. Previous infected port a cath for TPN associated with sepsis with septic shock due to Klebsiella bacteremia. Klebsiella oxytoca bacteremia was 6 of 6 bottles positive on 09/02, blood cx 09/03 neg. Port-A-cath s/p removal on 09/04/17. She then developed a chest wall collection. CT chest showed a collection 2.6x2.5x1.6 cm with a small bubble of air s/p bediside I +D. Port cx + Stenotrophomona maltophilia. She was treated with Levaquin 750 mg IV qday for 2 weeks until 09/22/17 via a new PICC line to her right arm. On 01/27/18 She was readmitted and blood cultures grew MSSA bateremia, likely from PICC site infection/thrombus. PICC line was removed and a right Ramirez catheter was placed. She was discharged home on Vancomycin 1 gm IV every 12 hours until 02/23/18. Now admitted with: 1.Sepsis on Admission;Resolved. Etiology unclear, DVT, Acintobacter bacteremia. Patient states that about 3 weeks ago she was diagnosed with a DVT in the right arm and was initially started on Eliquis and then transitioned to lovenox. Bacteremia, Blood cultures were drawn and show GNR 2 out of 4 bottles. U/A is negative for a UTI, Urine culture shows mixed culture of greater than 2 organisms. CXR shows no acute pulmonary disease. Chest CT show No significant change in pleural-based nodular consolidation anterior aspect left upper lobe, TTE shows no valvular vegetation. HIV negative 2. Acintobacter Bacteremia: 2 out of 4 bottles, 1 bottle indeterminate to cefepime, switched to Levofloxacin. Source unclear, most likely Ramirez catheter.However, cultures obtained from Ramirez catheter show no growth. 3. DVT Right Arm: CT scans demonstrates occlusion of the right subclavian, and innominate vein. Possible involvement of the left innominate vein and part of the SVC. Has a history of SVC stenosis. Patient also has DVT with significant central symptoms with SVC syndrome. s/p angioplasty of the right innominate vein, left subclavian and innominate vein, and SVC and fluoroscopically guided placement of a de juancho right internal jugular tunneled cuffed catheter 06/12/18. Anticipate being discharged home on levofloxacin 750mg IV every 24 hours for total 7 days. 4. Diabetic Gastroparesis: has had nothing by mouth for the past 3 years, on TPN for the past 2 years. Gets TPN alternating with tube feedings. Plan: -f/u repeat blood cultures -continue Levofloxacin 750 mg IV every 24 hours -Anticipate discharge on Levofloxacin 750mg IV every 24 hours for total 7 days ending 06/19/18 at discharge (per discussion with Pharmacist) -f/u with ID clinic on 07-02-18 - Ethanol lock therapy per Dr. Augie Vidal, CIND[facility] M: [id number] O:[phone] Subjective Date of service: 06/18/18 Interval history: Patient seen and examined. No acute distress, no fevers. OPAT and importance of following up in the office discussed. Questions answered. Objective - Exam Narrative Exam: Constitutional: Alert, cooperative, No acute distress Head, Ears, Nose: Normocephalic, atraumatic. External ears, nose normal Eyes: Conjunctivae/corneas clear. No icterus. No ptosis. Neck: Supple, no meningeal signs, + right Ramirez Catheter, + tenderness Oral: dentition good, no thrush Cardiovascular: S1, S2 normal. Respiratory: Good air entry, clear to auscultation bilaterally GI: Soft, non-tender; bowel sounds normal. No peritoneal signs, + J tube Musculoskeletal: No pedal edema, no cyanosis., +right arm tenderness Skin: No rash or abscess. Hem/Lymphatic: No palpable cervical or supraclavicular nodes. No lymphangitis Psych: Mood ok. Affect normal Neurological: Awake, alert, oriented. - Constitutional Vitals: Vital Signs Temp Pulse Resp BP Pulse Ox 98.3 F 89 16 89/46 96 06/18/18 04:42 06/18/18 04:42 06/18/18 04:42 06/18/18 04:42 06/18/18 04:42 Temperature -Last 24 Hours Temperature 98.3 F Temperature 98.2 F Temperature 98.6 F Temperature 98.3 F - Labs CBC & Chem 7: 06/18/18 04:50 06/18/18 04:50 Labs: Abnormal lab results 06/18/18 Range/Units 04:50 Sodium 135 L (137-145) mmol/L Glucose 111 H (65-100) mg/dL
--- NOTE | 2018-06-18 10:47 | Discharge Summary ---
Providers - Providers Date of Admission: 06/07/18 20:57 Date of discharge: 06/18/18 Attending physician: RADHA OSMAN 06/07/18 20:56 Consult to Physician [CONS] Routine Comment: Consulting Provider: MISAEL BURGOS Physician Instructions: Reason For Exam: sepsis 06/07/18 21:03 Consult to Dietitian/Nutrition [CONS] Routine Physician Instructions: Reason For Exam: Reason for Consult: Write/Manage TPN/PPN 06/08/18 10:26 Consult to Dietitian/Nutrition [CONS] Routine Physician Instructions: Reason For Exam: Reason for Consult: Write/Manage TPN/PPN 06/09/18 08:43 Consult to Physician [CONS] Routine Comment: Consulting Provider: MAURICIO SOTO Physician Instructions: Reason For Exam: pain at the permcath site 06/16/18 12:42 Consult to Case Management [CONS] Urgent Services Needed at Discharge: Home Health Services Notified:: yes Additional Physician Instructions: [facility] M [phone] O [phone] F [phone] OUTPATIENT PARENTERAL ANTIBIOTIC THERAPY ORDERS Diagnoses: Acintobacter Bacteremia Antimicrobial administration: Levofloxacin 750mg IV every 24 hours for total 7 days ending 06/19/18 Lines: Hodge Catheter Lab monitoring: CBC, BUN, Creatinine, ALT, AST, once a week preferly on Saturday morning. Please fax results to [phone] and call [phone] for critical lab results. Gloria Vidal NP/Eliza Cole MD Date: 06/16/18 Primary care physician: MAURICIO WILSON Hospitalization Condition: Fair Hospital course: The patient is a 42-year-old female presented with history of gastroparesis and diabetes not on medication and nothing by mouth for 3 years. She is on TPN. She presented to the ED with chief complaint of fever and body aches. Blood cx grew Acintobacter Bacteremia: 2 out of 4 bottles, also c/p pain at her hodge catheter site. Placed on abx, vascular and ID was consulted. CT scans demonstrates occlusion of the right subclavian, and innominate vein. s/p Successful central vein thrombectomy, tunneled catheter removal and placement of a new tunneled catheter by vascular . Lifelong anticoagulation was recommended. ID Physician recommended levaquin for total 7 days, ending 06/19/18. She was subsequently discharged home on 06/18/18. Total time spent on discharge, 32 mins Disposition: DC/TX-06 HOME UNDER HOME HLTH - Discharge Diagnoses (1) DVT (deep venous thrombosis) Status: Acute Qualifiers: DVT location: upper extremity Chronicity: acute Laterality: right (2) Dislodged gastrostomy tube Status: Acute (3) Sepsis Status: Acute Qualifiers: Sepsis type: sepsis due to unspecified organism Qualified Code(s): A41.9 - Sepsis, unspecified organism (4) Gastroparesis Status: Chronic (5) IDDM (insulin dependent diabetes mellitus) Status: Chronic Core Measure Documentation - Palliative Care Palliative Care/ Comfort Measures: Not Applicable - Core Measures Any of the following diagnoses?: none Exam - Constitutional Vitals: Temp Pulse Resp BP Pulse Ox 98.3 F 89 16 89/46 96 06/18/18 04:42 06/18/18 04:42 06/18/18 04:42 06/18/18 04:42 06/18/18 04:42 Plan Activity: advance as tolerated Diet: low fat, low cholesterol, low salt, diabetic Special Instructions: home health RN Additional Instructions: 1.Follow up with PCP in 3-5 days. 2.iv Levaquin daily to complete 06/19/18. 3.TPN managed by home health. 4.Ethanol lock to [facility]. 5.Follow up with Dr. Soto, Vasc Surg in 1 week. 6.Follow up with Neurological Physiotherapist in 3-5 days to evaluate for possible Cortisol deficiency. 7.Follow up with Dr. Cole, ID Physician on 07/02/18 Follow up with: PRIMARY CARE, [Referring] - 3-5 Days Prescriptions: Dexamethasone [Decadron] 4 mg PO Q12HR #30 tablet levoFLOXacin 250MG/50ML [Levaquin IV PREMIX] 750 mg IV Q24H #7 piggyback Enoxaparin [Lovenox] 80 mg SUB-Q Q12HR #30 syringe Acetaminophen/Codeine [Tylenol /Codeine # 3 tab] 1 tab PO Q6H PRN #12 tab PRN Reason: Pain , Severe (7-10)
[2018-06-18] MEDS: TYLENOL #3 PO PRN (11:26)
[2018-06-18 12:02] VITALS: BP 97/63
--- NOTE | 2018-06-18 13:32 | Event Note ---
Date: 06/18/18 Case management investigated home health's ability to use ethanol locks with TPN, which is relatively standard these days to prevent catheter infections. Unfortunately, this home health company does not have an ethanol lock protocol. I do not feel comfortable signing any forms related to ethanol locks if the home health company does not have a protocol. Case management will contact home health and inform them of the need to create a protocol, or the patient will have to ultimately seek her home health services from a company which has a better understanding of TPN. Patient has an outpatient PCP whom deals with her home health/TPN issues. Recommend that she follows up with her PCP who can subsequently convert her from heparin locks to ethanol locks once the company creates a protocol or assist the patient with transferring her home health care to another company with an ethanol lock/TPN protocol.
[2018-06-18] MEDS ORDERED: INTRALIPID 20% 250 ML IV SCH (20:00)
[2018-06-18] MEDS ORDERED: TPN ADULT 1,999.92 ML IV SCH (20:00)
== END 2018-06-18 13:31 | disposition home health service (06) | DRG 277 ==
LOC: ED 16:01 → 3A 20:57
PROVIDERS: ADMIT Internal Medicine; ATTEND Internal Medicine
PROC: 3E0436Z Introduction of Nutritional Substance into Central Vein, Percutaneous Approach (ICD-10-PCS; principal; 2018-06-09)
PROC: 02CV3ZZ Extirpation of Matter from Superior Vena Cava, Percutaneous Approach (ICD-10-PCS; 2018-06-12)
PROC: 027V3ZZ Dilation of Superior Vena Cava, Percutaneous Approach (ICD-10-PCS; 2018-06-12)
PROC: 057Y3ZZ Dilation of Upper Vein, Percutaneous Approach (ICD-10-PCS; 2018-06-12)
PROC: 05743ZZ Dilation of Left Innominate Vein, Percutaneous Approach (ICD-10-PCS; 2018-06-12)
PROC: 05733ZZ Dilation of Right Innominate Vein, Percutaneous Approach (ICD-10-PCS; 2018-06-12)
PROC: 05763ZZ Dilation of Left Subclavian Vein, Percutaneous Approach (ICD-10-PCS; 2018-06-12)
PROC: 027V3ZZ Dilation of Superior Vena Cava, Percutaneous Approach (ICD-10-PCS; 2018-06-12)
PROC: 027V3ZZ Dilation of Superior Vena Cava, Percutaneous Approach (ICD-10-PCS; 2018-06-12)
PROC: B5181ZZ Fluoroscopy of Superior Vena Cava using Low Osmolar Contrast (ICD-10-PCS; 2018-06-12)
PROC: B5171ZZ Fluoroscopy of Left Subclavian Vein using Low Osmolar Contrast (ICD-10-PCS; 2018-06-12)
PROC: B51N1ZZ Fluoroscopy of Left Upper Extremity Veins using Low Osmolar Contrast (ICD-10-PCS; 2018-06-12)
PROC: B5161ZZ Fluoroscopy of Right Subclavian Vein using Low Osmolar Contrast (ICD-10-PCS; 2018-06-12)
PROC: B51N1ZZ Fluoroscopy of Left Upper Extremity Veins using Low Osmolar Contrast (ICD-10-PCS; 2018-06-12)
PROC: 3E08317 Introduction of Other Thrombolytic into Heart, Percutaneous Approach (ICD-10-PCS; 2018-06-12)
PROC: B5131ZZ Fluoroscopy of Right Jugular Veins using Low Osmolar Contrast (ICD-10-PCS; 2018-06-12)
PROC: 05PY33Z Removal of Infusion Device from Upper Vein, Percutaneous Approach (ICD-10-PCS; 2018-06-12)
PROC: 0JPT3XZ Removal of Tunneled Vascular Access Device from Trunk Subcutaneous Tissue and Fascia, Percutaneous Approach (ICD-10-PCS; 2018-06-12)
PROC: 0JH63XZ Insertion of Tunneled Vascular Access Device into Chest Subcutaneous Tissue and Fascia, Percutaneous Approach (ICD-10-PCS; 2018-06-12)
PROC: 02H633Z Insertion of Infusion Device into Right Atrium, Percutaneous Approach (ICD-10-PCS; 2018-06-12)
PROC: B2141ZZ Fluoroscopy of Right Heart using Low Osmolar Contrast (ICD-10-PCS; 2018-06-12)
DX: T80.211A Bloodstream infection due to central venous catheter, initial encounter (principal); A41.59 Other Gram-negative sepsis; Y83.8 Other surgical procedures as the cause of abnormal reaction of the patient, or of later complication, without mention of misadventure at the time of the procedure; Y92.89 Other specified places as the place of occurrence of the external cause; K21.9 Gastro-esophageal reflux disease without esophagitis; E11.43 Type 2 diabetes mellitus with diabetic autonomic (poly)neuropathy; K31.84 Gastroparesis; E11.649 Type 2 diabetes mellitus with hypoglycemia without coma; F17.210 Nicotine dependence, cigarettes, uncomplicated; I82.621 Acute embolism and thrombosis of deep veins of right upper extremity; I82.210 Acute embolism and thrombosis of superior vena cava; I82.290 Acute embolism and thrombosis of other thoracic veins; I82.890 Acute embolism and thrombosis of other specified veins; Z93.1 Gastrostomy status; Z79.01 Long term (current) use of anticoagulants; Z86.718 Personal history of other venous thrombosis and embolism; Z93.4 Other artificial openings of gastrointestinal tract status; Z90.710 Acquired absence of both cervix and uterus; Z88.0 Allergy status to penicillin; Z88.8 Allergy status to other drugs, medicaments and biological substances; Z91.048 Other nonmedicinal substance allergy status
CPT/HCPCS: 36011; 36415; 36558; 36589; 37187; 37248; 37249; 71045; 71275; 75822; 75827; 76937; 77001; 80048; 80053; 81001; 82140; 82533; 82962; 83735; 84100; 84478; 85014; 85018; 85025; 85049; 85520; 85610; 85730; 86850; 86900; 86901; 87040; 87076; 87086; 87116; 87186; 87400; 87806; 93005; 93010; 93306; 96374; 96375; G0378; C1725; C1752; C1757; C1769; C1887; J0692; J1100; J1170; J1200; J1644; J1650; J1815; J1956; J2185; J2250; J2270; J2405; J2704; J2997; J3010; J3370; J7030; J7040; J7042; J8540; Q9967

== ENCOUNTER 2018-07-14 18:00 | Inpatient (IN) | payer OTHER ==
--- NOTE | 2018-07-14 19:52 | Emergency Department Report ---
Chief Complaint: Fever Stated Complaint: SEPSIS Time Seen by Provider: 07/14/18 19:47 - HPI History of Present Illness: Pt evaluated ED with c/o fever two weeks fatigue, chills seen at [facility] yesterday had (+) blood cultures states that she says that grew "gram positive cocci" right sided chest port, had for two months has the port for TPN has a G-tube/J-tube PMHx SVC syndrome, Type II DM, and gastroparesis MSE screening note: Focused history performed Due to findings the following was ordered: CXR, labs, UA ED Disposition for MSE Condition: Stable
[2018-07-14] MEDS ORDERED: NACL 0.9% 1000 ML IV ONE (19:53)
[2018-07-14 20:30] LABS: Partial Thromboplastin Time 32.6 Sec. (24.2-36.6)
[2018-07-14 20:44] LABS: Alanine Aminotransferase 29 units/L (7-56); Albumin 3.4 g/dL (3.9-5); BUN/Creatinine Ratio 11; Blood Urea Nitrogen 8 mg/dL (7-17); Calcium 8.6 mg/dL (8.4-10.2); Hemolysis Index 16
[2018-07-14 20:55] LABS: Basophils % (Auto) 0.4 % (0.0-1.8); Hematocrit 24.9 % (30.3-42.9); Hemoglobin 8.1 gm/dl (10.1-14.3); Lymphocytes # (Auto) 1.7 K/mm3 (1.2-5.4); Lymphocytes % (Auto) 28.7 % (13.4-35.0); Mean Corpuscular HGB Conc 33 % (30-34); Mean Corpuscular Volume 88 fl (79-97); Monocytes # (Auto) 0.5 K/mm3 (0.0-0.8); Platelet Count 185 K/mm3 (140-440); Red Blood Count 2.83 M/mm3 (3.65-5.03); Red Cell Distribution Width 16.3 % (13.2-15.2)
[2018-07-14 20:58] LABS: Monocytes % (Auto) 8.9 % (0.0-7.3)
[2018-07-14] MEDS ORDERED: ZOFRAN IV ONE ×2 (21:08→22:22)
[2018-07-14] MEDS ORDERED: MORPHINE IV ONE ×2 (21:08→22:21)
--- NOTE | 2018-07-14 21:14 | Emergency Department Report ---
ED General Adult HPI - General Chief complaint: Fever Stated complaint: SEPSIS Time Seen by Provider: 07/14/18 19:47 Source: patient Mode of arrival: Ambulatory Limitations: No Limitations - History of Present Illness Initial comments: Patient is 42 years old female with LONG history of gastroparesis on TPN. Patient presented to the ER stating that she received a call from [facility] stating that her blood glucose and it is positive and need to go to the emergency room. Patient called her vascular doctor is Dr. Ghosh, who advised patient to come to the emergency room today. Patient stated that she's been experiencing fever, nausea and vomiting and generalized body pain. Patient stated that Dr Ghosh wanted to be admitted for removal of our Ramirez catheter tomorrow. Severity scale (0 -10): 0 - Related Data Home Medications Medication Instructions Recorded Confirmed Last Taken Ondansetron [Zofran ODT TAB] 4 mg PO Q4HR PRN 03/04/18 06/07/18 04/03/18 4mg Previous Rx's Medication Instructions Recorded Last Taken Type HYDROcodone/APAP 5-325 [Melrose 1 each PO BID PRN #10 tablet 04/15/18 Unknown Rx 5-325 mg TAB] Enoxaparin [Lovenox] 80 mg SUB-Q Q12HR #30 syringe 06/14/18 Unknown Rx levoFLOXacin 250MG/50ML [Levaquin 750 mg IV Q24H #7 piggyback 06/14/18 Unknown Rx IV PREMIX] Acetaminophen/Codeine [Tylenol 1 tab PO Q6H PRN #12 tab 06/18/18 Unknown Rx /Codeine # 3 tab] Dexamethasone [Decadron] 4 mg PO Q12HR #30 tablet 06/18/18 Unknown Rx Azithromycin 250 mg PO DAILY #4 tablet 07/12/18 Unknown Rx Allergies Allergy/AdvReac Type Severity Reaction Status Date / Time ketorolac [From Toradol] Allergy Swelling Verified 06/07/18 16:06 metoclopramide [From Reglan] Allergy Unknown Verified 06/07/18 16:06 Penicillins Allergy Swelling Verified 06/07/18 16:06 prochlorperazine Allergy Unknown Verified 06/07/18 16:06 [From Compazine] promethazine [From Phenergan] Allergy Swelling Verified 06/07/18 16:06 tramadol Allergy Swelling Verified 06/07/18 16:06 adhesive tape AdvReac Itching Verified 06/07/18 16:06 Apple Allergy Swelling Uncoded 06/09/18 15:36 Sour cream Allergy Swelling Uncoded 06/09/18 15:36 Whip cream Allergy Swelling Uncoded 06/09/18 15:36 ED Review of Systems ROS: Stated complaint: SEPSIS Other details as noted in HPI Comment: All other systems reviewed and negative Constitutional: chills, fever Respiratory: shortness of breath. denies: cough, orthopnea, SOB with exertion, SOB at rest, wheezing Cardiovascular: denies: chest pain, palpitations Gastrointestinal: nausea, vomiting. denies: abdominal pain, diarrhea, constipation, hematemesis, melena, hematochezia Musculoskeletal: denies: back pain Neurological: denies: headache, weakness, numbness, paresthesias ED Past Medical Hx - Past Medical History Hx Hypertension: No Hx Heart Attack/AMI: No Hx Diabetes: Yes Hx Deep Vein Thrombosis: Yes (R AXILLARY VEIN) Hx GERD: Yes Hx Liver Disease: No Hx Renal Disease: No Hx Sickle Cell Disease: No Hx Seizures: No Hx Asthma: No Hx HIV: No Additional medical history: Gastroparesis, Unable to eat or drink on TPN 18 hours a day and IVF 2 hours a day, REBEL Button, SEPSIS. hypoglycemia////G-tube and J-tube - Surgical History Hx Pacemaker: No Hx Internal Defibrillator: No Hx Breast Surgery: (yes, augmentation) Additional Surgical History: Infusaport left chest wall. G-tube(2016) and J- tube(2017), Hysterectomy. Breast augmentation, PICC line - Social History Smoking Status: Never Smoker Substance Use Type: None - Medications Home Medications: Home Medications Medication Instructions Recorded Confirmed Last Taken Type Ondansetron [Zofran ODT TAB] 4 mg PO Q4HR PRN 03/04/18 06/07/18 04/03/18 History 4mg HYDROcodone/APAP 5-325 [[place] 1 each PO BID PRN #10 tablet 04/15/18 06/07/18 Unknown Rx 5-325 mg TAB] Enoxaparin [Lovenox] 80 mg SUB-Q Q12HR #30 syringe 06/14/18 Unknown Rx levoFLOXacin 250MG/50ML [Levaquin 750 mg IV Q24H #7 piggyback 06/14/18 Unknown Rx IV PREMIX] Acetaminophen/Codeine [Tylenol 1 tab PO Q6H PRN #12 tab 06/18/18 Unknown Rx /Codeine # 3 tab] Dexamethasone [Decadron] 4 mg PO Q12HR #30 tablet 06/18/18 Unknown Rx Azithromycin 250 mg PO DAILY #4 tablet 07/12/18 Unknown Rx ED Physical Exam - General Limitations: No Limitations General appearance: alert, in no apparent distress - Head Head exam: Present: atraumatic, normocephalic - ENT ENT exam: Present: mucous membranes dry - Neck Neck exam: Present: normal inspection, full ROM. Absent: tenderness, meningismus, lymphadenopathy, thyromegaly - Respiratory Respiratory exam: Present: normal lung sounds bilaterally - Cardiovascular Cardiovascular Exam: Present: tachycardia - GI/Abdominal GI/Abdominal exam: Present: soft, normal bowel sounds. Absent: distended, tenderness, guarding, rebound, rigid, mass, bruit, pulsatile mass - Extremities Exam Extremities exam: Present: normal inspection, full ROM, normal capillary refill - Back Exam Back exam: Present: normal inspection, full ROM. Absent: CVA tenderness (R), CVA tenderness (L) - Neurological Exam Neurological exam: Present: alert, oriented X3, CN II-XII intact, normal gait, reflexes normal - Skin Skin exam: Present: warm, dry, intact ED Course Vital Signs 07/14/18 07/14/18 07/14/18 19:47 21:10 21:35 Temperature 99.5 F 99.0 F Pulse Rate 112 H 97 H Respiratory 20 20 20 Rate Blood Pressure 119/63 Blood Pressure 93/56 [Left] O2 Sat by Pulse 97 99 Oximetry 07/14/18 21:36 Temperature Pulse Rate Respiratory 20 Rate Blood Pressure Blood Pressure [Left] O2 Sat by Pulse 99 Oximetry - Consultations Consultation #1: 07/14/18 21:48 I discussed the patient is Dr. Ghosh from vascular surgery. Dr. Ghosh advised to admit the patient to the hospital for IV antibiotic and removal of Ramirez catheter tomorrow. He advised patient needs to be nothing by mouth after midnight. ED Medical Decision Making - Lab Data Result diagrams: 07/14/18 20:03 07/14/18 20:03 - Medical Decision Making Patient is 42 years old female with LONG history of gastroparesis on TPN. Patient presented to the ER stating that she received a call from [facility] stating that her blood glucose and it is positive and need to go to the emergency room. Patient called her vascular doctor is Dr. Ghosh, who advised patient to come to the emergency room today. Patient stated that she's been experiencing fever, nausea and vomiting and generalized body pain. Patient stated that Dr Ghosh wanted to be admitted for removal of our Ramirez catheter tomorrow. I discussed the patient is Dr. Ghosh from vascular surgery. Dr. Ghosh advised to admit the patient to the hospital for IV antibiotic and removal of Ramirez catheter tomorrow. He advised patient needs to be nothing by mouth after midnight. I discussed the patient is Dr. Lexii Sands, she agreed to admit patient to medical service. Critical Care Time: Yes Critical care time in (mins) excluding proc time.: 30 Critical care attestation.: If time is entered above; I have spent that time in minutes in the direct care of this critically ill patient, excluding procedure time. ED Disposition Clinical Impression: Sepsis Disposition: -09 OP ADMIT IP TO THIS HOSP Is pt being admited?: Yes Condition: Stable Referrals: CARON PEACOCK MD [Primary Care Provider] - 3-5 Days
--- NOTE | 2018-07-14 21:23 | XRay Report ---
PROCEDURE: XR CHEST 1V AP TECHNIQUE: Chest radiograph single view. HISTORY: fever COMPARISONS: 07/11/2018 . FINDINGS: Heart: Normal. Mediastinum/Vessels: Normal. Lungs/Pleural space: Subsegmental atelectatic changes are noted involving the right lung base. Left lung and bilateral pleural spaces are clear.. Bony thorax: No acute osseous abnormality. Life support devices: A right-sided catheter is terminating at the level right atrium. IMPRESSION: Atelectatic changes right lung base. Any underlying infiltrates cannot be excluded. A tw o-view chest study is recommended whenever the patient's condition permits. This document is electronically signed by Kobi Cabrera MD., July 14 2018 09:21:21 PM ET
[2018-07-14] MEDS ORDERED: NACL 0.9% 1000 ML 1,000 ML ONE (22:03)
[2018-07-14] MEDS ORDERED: TYLENOL PO ONE (22:21)
[2018-07-14] MEDS ORDERED: VANCOMYCIN/NS 1 GM/250 ML 1 GM/250 ML BAG IV ONE (23:00)
--- NOTE | 2018-07-14 23:31 | History and Physical Report ---
History of Present Illness Date of examination: 07/14/18 History of present illness: 42-year-old woman with a history of DVT, diabetes completed by gastroparesis, on TPN nutrition was sent to the emergency room by Dr Ghosh for evaluation of bacteremia. Patient stated that last Saturday she had nausea and vomiting and diarrhea. Her diarrhea resolved but the fever was persistent, she was seen in the emergency room on Saturday, the wait was so long she took a Tylenol and by the time she was seen she had no fever, she was discharged to home. Her symptoms persisted, she went to [facility], she took a Tylenol before she was seen, however blood cultures were done yesterday, they called her to say that her blood cultures have been positive. She complains of cough, nonproductive, shortness of breath Review of systems Constitutional: no weight loss Ears, eyes, nose, mouth and throat: no nasal congestion, no nasal discharge, no sinus pressure, no vision change, no red eye. Neck: No neck pain or rigidity. Cardiovascular: no chest pain, palpitations Respiratory: + cough, shortness of breath Gastrointestinal: no abdominal pain hematochezia Genitourinary : no frequency , no hematuria Musculoskeletal: no joint swelling or muscle ache Integumentary: no rash, no pruritis Neurological: no parathesias, no numbness, no focal weakness Endocrine: no cold or heat intolerance, no polyuria or polydipsia Hematologic/Lymphatic: no easy bruising, no easy bleeding, no gland swelling Allergic/Immunologic: no urticaria, no angioedema. PAST MEDICAL HISTORY: diabetes completed by gastroparesis, dvt PAST SURGICAL HISTORY: G-tube, J-tube, port placement hysterectomy, breast augmentation SOCIAL HISTORY: No alcohol, no drugs, tobacco FAMILY HISTORY: Diabetes Medications and Allergies Allergies Allergy/AdvReac Type Severity Reaction Status Date / Time ketorolac [From Toradol] Allergy Swelling Verified 06/07/18 16:06 metoclopramide [From Reglan] Allergy Unknown Verified 06/07/18 16:06 Penicillins Allergy Swelling Verified 06/07/18 16:06 prochlorperazine Allergy Unknown Verified 06/07/18 16:06 [From Compazine] promethazine [From Phenergan] Allergy Swelling Verified 06/07/18 16:06 tramadol Allergy Swelling Verified 06/07/18 16:06 adhesive tape AdvReac Itching Verified 06/07/18 16:06 Apple Allergy Swelling Uncoded 06/09/18 15:36 Sour cream Allergy Swelling Uncoded 06/09/18 15:36 Whip cream Allergy Swelling Uncoded 06/09/18 15:36 Home Medications Medication Instructions Recorded Confirmed Last Taken Type Ondansetron [Zofran ODT TAB] 4 mg PO Q4HR PRN 03/04/18 07/14/18 04/03/18 History 4mg HYDROcodone/APAP 5-325 [Ivel 1 each PO BID PRN #10 tablet 04/15/18 07/14/18 Unknown Rx 5-325 mg TAB] Enoxaparin [Lovenox] 80 mg SUB-Q Q12HR #30 syringe 06/14/18 07/14/18 Unknown Rx Acetaminophen/Codeine [Tylenol 1 tab PO Q6H PRN #12 tab 06/18/18 07/14/18 Unknown Rx /Codeine # 3 tab] Morphine Sulfate/0.9% NaCl/Pf 2 mg IV Q4H 07/14/18 07/14/18 Unknown History [Morphine 2 mg/ml-0.9% NaCl Syr] Active Meds: Active Medications Vancomycin HCl (Vancomycin/Ns 1 Gm/250 Ml) 1 gm in 250 mls @ 167.007 mls/hr IV ONCE ONE; Protocol Stop: 07/15/18 00:29 Last Admin: 07/14/18 23:22 Dose: 167.007 mls/hr Documented by: Exam - Physical Exam Narrative exam: Gen. appearance: Patient lying in bed, no apparent distress HEENT: Normocephalic, atraumatic, pupils equally round and reactive to light, extraocular movement intact, and no sclericterus,. No JVD or thyromegaly or nodule,neck supple, no carotid bruit ,mucous membranes moist, no exudate or erythema Heart: S1, S2, regular rate and rhythm Lungs: Crackles bilaterally, breathing comfortable Abdomen: Positive bowel sounds, non-tender, nondistended, no organomegaly Extremity: no edema cyanosis, clubbing Skin: no rash, dry, warm Neuro: Oriented 3, cranial nerves II-12 intact, speech is fluent, motor and sensory intact - Constitutional Vitals: Temp Pulse Resp BP Pulse Ox 100.0 F H 107 H 20 110/54 99 07/14/18 22:06 07/14/18 22:06 07/14/18 22:35 07/14/18 22:06 07/14/18 22:06 Results - Labs CBC & Chem 7: 07/14/18 20:03 07/14/18 20:03 Labs: Abnormal lab results 07/14/18 07/14/18 07/14/18 Range/Units 20:03 20:03 20:03 RBC 2.83 L (3.65-5.03) M/mm3 Hgb 8.1 L (10.1-14.3) gm/dl Hct 24.9 L (30.3-42.9) % RDW 16.3 H (13.2-15.2) % Summers % (Auto) 8.9 H (0.0-7.3) % D-Dimer 719.58 H (0-234) ng/mlDDU Carbon Dioxide 21 L (22-30) mmol/L Alkaline Phosphatase 138 H (35-129) units/L Albumin 3.4 L (3.9-5) g/dL - Imaging and Cardiology CT scan - chest: report reviewed Assessment and Plan Assessment Community-acquired pneumonia Bacteremia Diabetes complicated by gastroparesis DVT Plan Admit to medicine Side IV fluid, continue IV Levaquin, vancomycin Follow cultures, will need the IV access removed Check fingersticks, consult dietary for TPN Patient on full dose Lovenox for DVT, IV morphine Vascular consulted to see the patient DVT prophylaxis
--- NOTE | 2018-07-15 00:34 | Cat Scan Report ---
PROCEDURE: CT ANGIO CHEST TECHNIQUE: A CT angiogram was performed following the intravenous injection of iodinated contrast. M IP sagittal, coronal and rotational reconstructions were reviewed. HISTORY: SOB, ELEVATED D-DIMER COMPARISONS: 06/07/2018 FINDINGS: The heart size appears normal. There is no evidence of pericardial effusion. The thoracic aorta is no rmal in configuration. There is no evidence of adenopathy. There is no evidence of pulmonary embolus at this time. The lungs are not congested. The lungs otherwise reveal patchy nodular infiltrates in b oth lower lobes, lingula and right middle lobe with findings most prominent in the right lower lobe. Pleural fluid is not seen. In the upper abdomen there is a stable 1.9 cm right adrenal nodule. The ga strostomy tube is in proper position the stomach. The skeletal structures do not show any acute jaramillo es. At the thoracic inlet the thyroid gland appears normal. There are bilateral breast implants which appear intact. IMPRESSION: No evidence of pulmonary embolus, aortic dissection, or vascular congestion. Patchy nodular infiltrates in both lower lobes, lingula and right middle lobe. No evidence of pleural effusion. Stable right adrenal nodule.. This document is electronically signed by Matthias Leavitt MD., July 15 2018 12:32:47 AM ET
[2018-07-15] MEDS ORDERED: NACL 0.9% 1000 ML 1,000 ML ONE (00:41)
[2018-07-15] MEDS ORDERED: TYLENOL PO PRN (00:43)
[2018-07-15] MEDS ORDERED: D50W (25GM) Syringe IV PRN (00:44)
[2018-07-15] MEDS: D5/0.45NS 1,000 ML IV SCH ×2 (00:57→11:36)
[2018-07-15] MEDS ORDERED: VANCOMYCIN PHARMACY TO DOSE IV SCH (01:00)
[2018-07-15 01:20] LABS: Bilirubin,Urine NEG (Negative); Blood,Urine MOD (Negative); Color,Urine Yellow (Yellow); Mucus,Urine FEW /HPF; Protein,Urine <15 mg/dL mg/dL (Negative); Urobilinogen,Urine < 2.0 mg/dL (<2.0)
[2018-07-15] MEDS: LEVAQUIN 750MG/150ML 750 MG/150 ML BAG IV SCH ×3 (01:38→21:11)
[2018-07-15] MEDS: ZOFRAN IV PRN ×3 (01:57→21:10)
[2018-07-15] MEDS: MORPHINE IV PRN ×5 (01:57→20:53)
--- NOTE | 2018-07-15 08:42 | Event Note ---
Date: 07/15/18 Patient will be scheduled for tunnel catheter removal tomorrow with anesthesia.
[2018-07-15 10:35] LABS: BUN/Creatinine Ratio 8; Blood Urea Nitrogen 5 mg/dL (7-17); Calcium 7.7 mg/dL (8.4-10.2); Hemolysis Index 1
[2018-07-15] MEDS ORDERED: VANCOMYCIN/NS 1 GM/250 ML 1 GM/250 ML BAG IV SCH (11:00)
[2018-07-15] MEDS: VANCOMYCIN 1,250 MG in NACL 0.9% 250ML 250 ML IV SCH ×2 (11:35→23:39)
[2018-07-15] MEDS: SODIUM CHLORIDE FLUSH SYRINGE 10 ML IV SCH ×2 (11:38→21:10)
--- NOTE | 2018-07-15 13:48 | Progress Note ---
Assessment and Plan Community-acquired pneumonia Bacteremia Diabetes complicated by gastroparesis h/o DVT on AC Plan cont IV fluid, continue IV Levaquin, vancomycin Follow cultures, will need the IV access removed cont to Check fingersticks, consult dietary for TPN Patient on full dose Lovenox for DVT, IV morphine Vascular consulted to see the patient - Plan for removal of catheter with temporary peripheral parenteral nutrition. After blood cultures and fevers have both cleared, plan for new catheter placement in the right internal jugular vein. 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 brief history: 42-year-old woman with a history of diabetes completed by gastroparesis, on TPN nutrition, catheter related DVT and recent catheter removal and placement with SVC angioplasty and thrombectomy , was sent to the emergency room by Dr Ghosh for evaluation of bacteremia. Patient stated that last Saturday she had nausea and vomiting and diarrhea. Her diarrhea resolved but the fever was persistent, she was seen in the emergency room at [facility] [place], blood cultures were done yesterday, they called her to say that her blood cultures have been positive. Subjective Date of service: 07/15/18 Interval history: patient seen and examined denies chest pain, afebrile Objective - Constitutional Vitals: Vital Signs - 12hr 07/15/18 07/15/18 04:56 11:56 Temperature 98.9 F 99.0 F Pulse Rate 99 H 95 H Respiratory 18 18 Rate Blood Pressure 96/51 92/48 O2 Sat by Pulse 95 98 Oximetry General appearance: Present: no acute distress, well-nourished - EENT Eyes: PERRL, EOM intact ENT: hearing intact, clear oral mucosa Ears: bilateral: normal - Neck Neck: supple, normal ROM - Respiratory Respiratory effort: normal Respiratory: bilateral: CTA - Cardiovascular Rhythm: regular Heart Sounds: Present: S1 & S2. Absent: gallop, rub Extremities: pulses intact, No edema, normal color, Full ROM - Gastrointestinal General gastrointestinal: Present: soft, non-tender, non-distended, normal bowel sounds - Integumentary Integumentary: clear, warm, dry - Musculoskeletal Musculoskeletal: 1, strength equal bilaterally - Neurologic Neurologic: moves all extremities - Psychiatric Psychiatric: memory intact, appropriate mood/affect, intact judgment & insight - Labs CBC & Chem 7: 07/16/18 09:16 07/16/18 09:16 Labs: Abnormal lab results 07/14/18 07/14/18 07/14/18 Range/Units 20:03 20:03 20:03 RBC 2.83 L (3.65-5.03) M/mm3 Hgb 8.1 L (10.1-14.3) gm/dl Hct 24.9 L (30.3-42.9) % RDW 16.3 H (13.2-15.2) % [place] % (Auto) 8.9 H (0.0-7.3) % D-Dimer 719.58 H (0-234) ng/mlDDU Chloride (98-107) mmol/L Carbon Dioxide 21 L (22-30) mmol/L BUN (7-17) mg/dL Creatinine (0.7-1.2) mg/dL Calcium (8.4-10.2) mg/dL Alkaline Phosphatase 138 H (35-129) units/L Albumin 3.4 L (3.9-5) g/dL Ur Specific [place] (1.003-1.030) 07/14/18 07/15/18 Range/Units Unknown 09:43 RBC (3.65-5.03) M/mm3 Hgb (10.1-14.3) gm/dl Hct (30.3-42.9) % RDW (13.2-15.2) % [place] % (Auto) (0.0-7.3) % D-Dimer (0-234) ng/mlDDU Chloride 110.1 H (98-107) mmol/L Carbon Dioxide 20 L (22-30) mmol/L BUN 5 L (7-17) mg/dL Creatinine 0.6 L (0.7-1.2) mg/dL Calcium 7.7 L (8.4-10.2) mg/dL Alkaline Phosphatase (35-129) units/L Albumin (3.9-5) g/dL Ur Specific [place] > 1.059 H (1.003-1.030)
[2018-07-15] MEDS: BENADRYL IV PRN (14:04)
[2018-07-15] MEDS: LOVENOX SUB-Q SCH ×2 (14:09→21:10)
[2018-07-15] MEDS ORDERED: TPN ADULT 2,400 ML IV SCH (20:00)
[2018-07-16] MEDS: MORPHINE IV PRN ×6 (00:55→21:19)
[2018-07-16] MEDS: BENADRYL IV PRN ×3 (07:58→23:28)
--- NOTE | 2018-07-16 10:20 | Consultation ---
History of Present Illness - Reason for Consult Consult date: 07/16/18 Bacteremia - History of Present Illness 42-year-old woman with a history of DVT, diabetes completed by gastroparesis, on TPN nutrition was sent to the emergency room by Dr Ghosh for evaluation of bacteremia. Patient stated that last Saturday she had nausea and vomiting and diarrhea. Her diarrhea resolved but the fever was persistent, she was seen in the emergency room on Saturday, the wait was so long she took a Tylenol and by the time she was seen she had no fever, she was discharged to home. Her symptoms persisted, she went to [facility], she took a Tylenol before she was seen, however blood cultures were done yesterday, they called her to say that her blood cultures have been positive. She complains of cough, nonproductive, shortness of breath Patient has been seen by vascular in the past for catheter infections related to Hodge catheter placed at outside facility. Most recently, patient had catheter removal and placement with SVC angioplasty and thrombectomy. Over one month later, patient has fevers and has had positive bacteremia obtained at [facility]. Past History Past Medical History: diabetes, DVT, other (gastroparesis, TPN) Past Surgical History: Other (G tube, J tube, TPN catheter) Social history: no significant social history Family history: no significant family history Medications and Allergies Allergies Allergy/AdvReac Type Severity Reaction Status Date / Time ketorolac [From Toradol] Allergy Swelling Verified 06/07/18 16:06 metoclopramide [From Reglan] Allergy Unknown Verified 06/07/18 16:06 Penicillins Allergy Swelling Verified 06/07/18 16:06 prochlorperazine Allergy Unknown Verified 06/07/18 16:06 [From Compazine] promethazine [From Phenergan] Allergy Swelling Verified 06/07/18 16:06 tramadol Allergy Swelling Verified 06/07/18 16:06 adhesive tape AdvReac Itching Verified 06/07/18 16:06 Apple Allergy Swelling Uncoded 06/09/18 15:36 Sour cream Allergy Swelling Uncoded 06/09/18 15:36 Whip cream Allergy Swelling Uncoded 06/09/18 15:36 Home Medications Medication Instructions Recorded Confirmed Last Taken Type Ondansetron [Zofran ODT TAB] 4 mg PO Q4HR PRN 03/04/18 07/14/18 04/03/18 History 4mg HYDROcodone/APAP 5-325 [[place] 1 each PO BID PRN #10 tablet 04/15/18 07/14/18 Unknown Rx 5-325 mg TAB] Enoxaparin [Lovenox] 80 mg SUB-Q Q12HR #30 syringe 06/14/18 07/14/18 Unknown Rx Acetaminophen/Codeine [Tylenol 1 tab PO Q6H PRN #12 tab 06/18/18 07/14/18 Unknown Rx /Codeine # 3 tab] Morphine Sulfate/0.9% NaCl/Pf 2 mg IV Q4H 07/14/18 07/14/18 Unknown History [Morphine 2 mg/ml-0.9% NaCl Syr] Active Meds: Active Medications Acetaminophen (Tylenol) 650 mg PO Q4H PRN PRN Reason: Pain MILD(1-3)/Fever >100.5/GONZALEZ Dextrose (D50w (25gm) Syringe) 50 ml IV PRN PRN PRN Reason: Hypoglycemia Diphenhydramine HCl (Benadryl) 25 mg IV Q6H PRN PRN Reason: Itching Last Admin: 07/16/18 07:58 Dose: 25 mg Documented by: Enoxaparin Sodium (Lovenox) 80 mg SUB-Q Q12HR [facility] Last Admin: 07/15/18 21:10 Dose: Not Given Documented by: Vancomycin HCl 1,250 mg/ (Sodium Chloride) 275 mls @ 166.667 mls/hr IV Q12H [facility] Last Admin: 07/15/18 23:39 Dose: 166.667 mls/hr Documented by: Amino Acids/Electrolytes/Dextrose (Tpn Adult) 2,400 mls @ 100 mls/hr IV DAILY@1999 [facility]; Protocol Stop: 07/16/18 19:59 Last Admin: 07/15/18 20:54 Dose: 100 mls/hr Documented by: Levofloxacin/Dextrose (Levaquin 750mg/150ml) 750 mg in 150 mls @ 100 mls/hr IV QHS [facility]; Protocol Last Admin: 07/15/18 21:11 Dose: 100 mls/hr Documented by: Morphine Sulfate (Morphine) 2 mg IV Q4H PRN PRN Reason: Pain, Moderate (4-6) Last Admin: 07/16/18 09:29 Dose: 2 mg Documented by: Ondansetron HCl (Zofran) 4 mg IV Q4H PRN PRN Reason: Nausea And Vomiting Last Admin: 07/15/18 21:10 Dose: 4 mg Documented by: Sodium Chloride (Sodium Chloride Flush Syringe 10 Ml) 10 ml IV BID [facility] Last Admin: 07/15/18 21:10 Dose: 10 ml Documented by: Sodium Chloride (Sodium Chloride Flush Syringe 10 Ml) 10 ml IV PRN PRN PRN Reason: LINE FLUSH Review of Systems All systems: negative (see HPI) Exam - Constitutional Vitals: Temp Pulse Resp BP Pulse Ox 98.6 F 93 H 18 104/66 94 07/16/18 04:36 07/16/18 04:36 07/16/18 05:17 07/16/18 04:36 07/16/18 04:36 General appearance: Present: no acute distress - EENT Eyes: Present: EOM intact ENT: hearing intact - Neck Neck: Present: supple (no pain at the right neck) - Respiratory Respiratory effort: normal - Extremities Extremities: normal temperature, normal color Extremity abnormal: edema (minimal swelling of RUE) - Abdominal General gastrointestinal: Present: soft - Psychiatric Psychiatric: appropriate mood/affect, cooperative Results - Labs CBC & Chem 7: 07/16/18 09:16 07/16/18 09:16 Labs: Abnormal lab results 07/15/18 07/16/18 Range/Units 09:43 00:16 Chloride 110.1 H (98-107) mmol/L Carbon Dioxide 20 L (22-30) mmol/L BUN 5 L (7-17) mg/dL Creatinine 0.6 L (0.7-1.2) mg/dL POC Glucose 118 H (70-105) Calcium 7.7 L (8.4-10.2) mg/dL Assessment and Plan 42 year old female with gastroparesis chronically with G-tube, J-tube, and Hodge catheter. Patient had DVT associated with Hodge catheter requiring thrombectomy with Hodge cath removal and new Hodge catheter placement. Hodge catheter also became infected. Patient has positive blood cultures from [facility]. She is also been having fever for a week. Will need ID to evaluate patient. Plan for removal of catheter with temporary peripheral parenteral nutrition. After blood cultures and fevers have both cleared, plan for new catheter placement in the right internal jugular vein. 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 She needs to be on anticoagulation for DVT. Anticoagulation will need to be held prior to new Hodge placement. If Lovenox will be used, than hold dose evening before new Hodge placement and a.m. of new Hodge procedure. Plan for hodge removal today.
[2018-07-16 10:36] LABS: Basophils % (Auto) 0.3 % (0.0-1.8); Hematocrit 20.4 % (30.3-42.9); Hemoglobin 6.7 gm/dl (10.1-14.3); Lymphocytes # (Auto) 1.4 K/mm3 (1.2-5.4); Mean Corpuscular HGB Conc 33 % (30-34); Mean Corpuscular Volume 88 fl (79-97); Monocytes # (Auto) 0.5 K/mm3 (0.0-0.8); Monocytes % (Auto) 12.1 % (0.0-7.3); Platelet Count 163 K/mm3 (140-440); Red Blood Count 2.31 M/mm3 (3.65-5.03); Red Cell Distribution Width 15.8 % (13.2-15.2)
[2018-07-16 10:50] LABS: BUN/Creatinine Ratio 13; Blood Urea Nitrogen 8 mg/dL (7-17); Hemolysis Index 1
[2018-07-16] MEDS: LOVENOX SUB-Q SCH ×2 (11:25→22:20)
--- NOTE | 2018-07-16 12:45 | Progress Note ---
Assessment and Plan Community-acquired pneumonia Bacteremia? w/o sepsis - blood cx growing yeast now Diabetes complicated by gastroparesis h/o DVT on AC Plan cont IV fluid, continue IV Levaquin, vancomycin, started on fluconazole Follow blood cultures, cont to Check fingersticks, consulted dietary for TPN Patient on full dose Lovenox for DVT, as needed percocet Vascular consulted to see the patient - Plan for removal of catheter with temporary peripheral parenteral nutrition. After blood cultures and fevers have both cleared, plan for new catheter placement in the right internal jugular vein. 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 Requested medical record from [facility] [place] brief history: 42-year-old woman with a history of diabetes completed by gastroparesis, on TPN nutrition, catheter related DVT and recent catheter removal and placement with SVC angioplasty and thrombectomy , was sent to the emergency room by Dr Ghosh for evaluation of bacteremia. Patient stated that last Saturday she had nausea and vomiting and diarrhea. Her diarrhea resolved but the fever was persistent, she was seen in the emergency room at [facility], blood cultures were done yesterday, they called her to say that her blood cultures have been positive. Subjective Date of service: 07/16/18 Interval history: patient seen and examined denies chest pain, afebrile Plan for vascular procedure today Objective - Exam Narrative Exam: General appearance: Present: no acute distress, well-nourished - EENT Eyes: PERRL, EOM intact ENT: hearing intact, clear oral mucosa Ears: bilateral: normal - Neck Neck: supple, normal ROM - Respiratory Respiratory effort: normal Respiratory: bilateral: CTA - Cardiovascular Rhythm: regular Heart Sounds: Present: S1 & S2. Absent: gallop, rub Extremities: pulses intact, No edema, normal color, Full ROM - Gastrointestinal General gastrointestinal: Present: soft, non-tender, non-distended, normal bowel sounds - Integumentary Integumentary: clear, warm, dry - Musculoskeletal Musculoskeletal: 1, strength equal bilaterally - Neurologic Neurologic: moves all extremities - Psychiatric Psychiatric: memory intact, appropriate mood/affect, intact judgment & insight - Constitutional Vitals: Vital Signs - 12hr 07/16/18 07/16/18 07/16/18 00:55 01:25 04:36 Temperature 98.6 F Pulse Rate 93 H Respiratory 18 17 24 Rate Blood Pressure 104/66 O2 Sat by Pulse 94 Oximetry 07/16/18 07/16/18 07/16/18 04:47 05:17 10:51 Temperature Pulse Rate Respiratory 18 18 Rate Blood Pressure O2 Sat by Pulse 96 Oximetry - Labs CBC & Chem 7: 07/16/18 09:16 07/16/18 09:16 Labs: Abnormal lab results 07/16/18 07/16/18 07/16/18 Range/Units 00:16 09:16 09:16 WBC 3.9 L (4.5-11.0) K/mm3 RBC 2.31 L (3.65-5.03) M/mm3 Hgb 6.7 L (10.1-14.3) gm/dl Hct 20.4 L (30.3-42.9) % RDW 15.8 H (13.2-15.2) % Lymph % (Auto) 36.0 H (13.4-35.0) % [place] % (Auto) 12.1 H (0.0-7.3) % Creatinine 0.6 L (0.7-1.2) mg/dL POC Glucose 118 H (70-105) Calcium 8.0 L (8.4-10.2) mg/dL
[2018-07-16] MEDS ORDERED: HEPARIN 10,000 UNITS/10 ML ONE (13:02)
[2018-07-16] MEDS ORDERED: HEPARIN/NS 5000 UNIT/500ML(CATH LAB) 500 ML IR ONE (13:02)
[2018-07-16] MEDS ORDERED: NACL 0.9% 500 ML 0 ML ONE (13:03)
[2018-07-16] MEDS ORDERED: XYLOCAINE 2% INFILTRATI ONE (13:03)
[2018-07-16] MEDS ORDERED: XYLOCAINE CARDIAC IV ONE (14:18)
[2018-07-16] MEDS ORDERED: DECADRON ONE (14:18)
[2018-07-16] MEDS ORDERED: NEO SYNEPHRINE/NS Syringe(OR USE) IV ONE (14:18)
[2018-07-16] MEDS ORDERED: ZOFRAN ONE (14:18)
[2018-07-16] MEDS ORDERED: DILAUDID ONE (14:18)
[2018-07-16] MEDS ORDERED: VERSED ONE (14:20)
--- NOTE | 2018-07-16 14:23 | Anesthesia Day of Surgery ---
Anesthesia Day of Surgery - Day of Surgery Patient Examined: Yes Patient H&P Reviewed: Yes Patient is NPO: Yes Beta Blockers: No
--- NOTE | 2018-07-16 14:24 | Anesthesia Consultation ---
Anesthesia Consult and Med Hx Date of service: 07/16/18 - Airway Anesthetic Teeth Evaluation: Good ROM Head & Neck: Adequate Mental/Hyoid Distance: Adequate Mallampati Class: Class II Intubation Access Assessment: Probably Good - Pulmonary Exam CTA: Yes - Cardiac Exam Cardiac Exam: No Murmur - Pre-Operative Health Status ASA Pre-Surgery Classification: ASA3 Proposed Anesthetic Plan: MAC - Pulmonary Hx Smoking: Yes Hx Asthma: No Hx Respiratory Symptoms: No - Cardiovascular System Hx Hypertension: No Hx Heart Attack/AMI: No Hx Percutaneous Transluminal Coronary Angioplasty (PTCA): No Hx Cardia Arrhythmia: No Hx Pacemaker: No Hx Internal Defibrillator: No - Central Nervous System Hx Seizures: No CVA: No Hx Psychiatric Problems: No - Gastrointestinal Hx Gastroesophageal Reflux Disease: No (G-tube in-situ for gastroparesis) - Endocrine Hx Renal Disease: No Hx Liver Disease: No Hx Non-Insulin Dependent Diabetes: Yes (hypoglycemic episodes this admission. No hyperglycemia.) Hx Thyroid Disease: No - Hematic Hx Anemia: Yes Hx Sickle Cell Disease: No - Other Systems Hx Cancer: No Hx Obesity: No
[2018-07-16] MEDS ORDERED: NACL 0.9% 100 ML ONE (14:59)
--- NOTE | 2018-07-16 15:07 | Operative Report ---
Operative Report Operative Report: Johnny: Exam: Ultrasound and fluoroscopic guided placement of triple-lumen catheter, removal of tunneled Ramirez catheter Clinical indication: Patient with a history of bacteremia requiring Ramirez removal. Patient with TPN needs requiring triple-lumen catheter placement Date: 07/16/2018 Procedure: Following an explanation of the risks, benefits and alternatives; written informed consent was obtained. The patient was brought to the angiographic suite and placed in supine position on the examination table. Initial ultrasound evaluation of her groin demonstrated a patent right common femoral vein. The patient's right groin and right chest wall were prepped and draped in the usual sterile fashion. 1% lidocaine was used for anesthesia. Triple-lumen catheter placement: Under ultrasound guidance, the right common femoral and was cannulated with a 7 cm 18-gauge needle. A 0.035 guidewire was advanced centrally under fluoroscopy. The needle was removed and following serial dilation, a 16 cm 6 [place] triple- lumen catheter was advanced over the guidewire. The guidewire was removed. All 3 ports flushed and aspirated easily and rhythm locked with sterile saline. Fluoroscopic imaging was obtained to document appropriate positioning. The catheter was securely fastened of the skin surface using 2-0 Ethilon suture and a sterile dressing applied. Tunneled Ramirez catheter removal: Lidocaine was applied to the catheter exit site and along the tunnel tract. The catheter cuff was then dissected free. The catheter was then removed intact. Hemostasis was achieved using manual compression. A sterile dressing was then applied. The patient tolerated both procedures well. There were no immediate post procedure complications. Sedation was provided by anesthesia services. Continuous cardiopulmonary monitoring was utilized. Impression: 1) Ultrasound and fluoroscopic guided placement of triple lumen catheter by at the right common femoral vein. 2) Removal of right chest wall tunneled Ramirez catheter
[2018-07-16] MEDS ORDERED: NACL 0.9% 500 ML 500 ML IV NR (15:30)
[2018-07-16] MEDS ORDERED: BENADRYL ONE (15:42)
--- NOTE | 2018-07-16 15:44 | Event Note ---
Date: 07/16/18 Received consultation. Patient is out of her room getting a procedure. Blood culture here growing yeast 2 of 4 bottles. I added fluconazole. I alerted Dr Fallon and Dr Thomas. Her Ramirez was removed and a femoral TLC was placed. She is on vancomycin and levaquin. Need to f/u outside hospital final blood culture and obtain a TTE.
[2018-07-16] MEDS ORDERED: MORPHINE ONE (16:41)
[2018-07-16] MEDS: VANCOMYCIN 1,250 MG in NACL 0.9% 250ML 250 ML IV SCH ×2 (17:11→19:37)
[2018-07-16] MEDS: DIFLUCAN 200 ML IV SCH (17:24)
[2018-07-16] MEDS: PERCOCET 5/325 PO PRN (18:37)
[2018-07-16] MEDS ORDERED: TPN ADULT 2,400 ML IV SCH (20:00)
[2018-07-16] MEDS: SODIUM CHLORIDE FLUSH SYRINGE 10 ML IV SCH ×2 (20:30→22:00)
[2018-07-16] MEDS: ZOFRAN IV PRN (21:19)
[2018-07-17] MEDS: LEVAQUIN 750MG/150ML 750 MG/150 ML BAG IV SCH ×2 (00:03→21:46)
[2018-07-17] MEDS: MORPHINE IV PRN ×4 (03:42→17:51)
[2018-07-17] MEDS: VANCOMYCIN 1,250 MG in NACL 0.9% 250ML 250 ML IV SCH ×2 (05:33→17:45)
[2018-07-17] MEDS: PERCOCET 5/325 PO PRN ×2 (05:40→21:02)
[2018-07-17] MEDS: BENADRYL IV PRN ×2 (05:41→15:22)
[2018-07-17 06:05] LABS: Basophils % (Auto) 0.7 % (0.0-1.8); Hematocrit 23.9 % (30.3-42.9); Hemoglobin 7.8 gm/dl (10.1-14.3); Lymphocytes # (Auto) 1.5 K/mm3 (1.2-5.4); Lymphocytes % (Auto) 33.7 % (13.4-35.0); Mean Corpuscular HGB Conc 33 % (30-34); Mean Corpuscular Volume 90 fl (79-97); Monocytes # (Auto) 0.5 K/mm3 (0.0-0.8); Monocytes % (Auto) 10.8 % (0.0-7.3); Platelet Count 212 K/mm3 (140-440); Red Blood Count 2.66 M/mm3 (3.65-5.03); Red Cell Distribution Width 15.9 % (13.2-15.2)
[2018-07-17 06:33] LABS: BUN/Creatinine Ratio 11; Blood Urea Nitrogen 8 mg/dL (7-17); Calcium 7.9 mg/dL (8.4-10.2); Hemolysis Index 17
--- NOTE | 2018-07-17 07:44 | Consultation ---
History of Present Illness - Reason for Consult Consult date: 07/17/18 bacteremia Requesting physician: MARVIN RODRIGEZ Past History Past Medical History: diabetes, DVT, other (gastroparesis, TPN) Past Surgical History: Other (G tube, J tube, TPN catheter) Social history: no significant social history Family history: no significant family history Medications and Allergies Allergies Allergy/AdvReac Type Severity Reaction Status Date / Time ketorolac [From Toradol] Allergy Swelling Verified 06/07/18 16:06 metoclopramide [From Reglan] Allergy Unknown Verified 06/07/18 16:06 Penicillins Allergy Swelling Verified 06/07/18 16:06 prochlorperazine Allergy Unknown Verified 06/07/18 16:06 [From Compazine] promethazine [From Phenergan] Allergy Swelling Verified 06/07/18 16:06 tramadol Allergy Swelling Verified 06/07/18 16:06 adhesive tape AdvReac Itching Verified 06/07/18 16:06 Apple Allergy Swelling Uncoded 06/09/18 15:36 Sour cream Allergy Swelling Uncoded 06/09/18 15:36 Whip cream Allergy Swelling Uncoded 06/09/18 15:36 Home Medications Medication Instructions Recorded Confirmed Last Taken Type Ondansetron [Zofran ODT TAB] 4 mg PO Q4HR PRN 03/04/18 07/14/18 04/03/18 History 4mg HYDROcodone/APAP 5-325 [[place] 1 each PO BID PRN #10 tablet 04/15/18 07/14/18 Unknown Rx 5-325 mg TAB] Enoxaparin [Lovenox] 80 mg SUB-Q Q12HR #30 syringe 06/14/18 07/14/18 Unknown Rx Acetaminophen/Codeine [Tylenol 1 tab PO Q6H PRN #12 tab 06/18/18 07/14/18 Unknown Rx /Codeine # 3 tab] Morphine Sulfate/0.9% NaCl/Pf 2 mg IV Q4H 07/14/18 07/14/18 Unknown History [Morphine 2 mg/ml-0.9% NaCl Syr] Active Meds: Active Medications Acetaminophen (Tylenol) 650 mg PO Q4H PRN PRN Reason: Pain MILD(1-3)/Fever >100.5/GONZALEZ Dextrose (D50w (25gm) Syringe) 50 ml IV PRN PRN PRN Reason: Hypoglycemia Diphenhydramine HCl (Benadryl) 25 mg IV Q6H PRN PRN Reason: Itching Last Admin: 07/17/18 05:41 Dose: 25 mg Documented by: Enoxaparin Sodium (Lovenox) 80 mg SUB-Q Q12HR [facility] Last Admin: 07/16/18 22:20 Dose: 80 mg Documented by: Levofloxacin/Dextrose (Levaquin 750mg/150ml) 750 mg in 150 mls @ 100 mls/hr IV QHS [facility]; Protocol Last Admin: 07/17/18 00:03 Dose: 100 mls/hr Documented by: Amino Acids/Electrolytes/Dextrose (Tpn Adult) 2,400 mls @ 100 mls/hr IV DAILY@2000 [facility]; Protocol Stop: 07/17/18 19:59 Last Admin: 07/17/18 00:14 Dose: 100 mls/hr Documented by: Fluconazole (Diflucan) 200 mls @ 100 mls/hr IV Q24HR [facility]; Protocol Last Admin: 07/16/18 17:24 Dose: 100 mls/hr Documented by: Vancomycin HCl 1,250 mg/ (Sodium Chloride) 275 mls @ 166.667 mls/hr IV Q12H [facility] Last Admin: 07/17/18 05:33 Dose: 166.667 mls/hr Documented by: Morphine Sulfate (Morphine) 2 mg IV Q4H PRN PRN Reason: Pain , Severe (7-10) Last Admin: 07/17/18 03:42 Dose: 2 mg Documented by: Ondansetron HCl (Zofran) 4 mg IV Q4H PRN PRN Reason: Nausea And Vomiting Last Admin: 07/16/18 21:19 Dose: 4 mg Documented by: Oxycodone/Acetaminophen (Percocet 5/325) 1 tab PO Q6H PRN PRN Reason: Pain, Moderate (4-6) Last Admin: 07/17/18 05:40 Dose: 1 tab Documented by: Sodium Chloride (Sodium Chloride Flush Syringe 10 Ml) 10 ml IV BID [facility] Last Admin: 07/16/18 22:00 Dose: 10 ml Documented by: Sodium Chloride (Sodium Chloride Flush Syringe 10 Ml) 10 ml IV PRN PRN PRN Reason: LINE FLUSH Physical Examination - Constitutional Vitals: Vital Signs Temp Pulse Resp BP Pulse Ox 99.6 F 85 16 111/67 96 07/17/18 05:35 07/17/18 05:35 07/17/18 05:35 07/17/18 05:35 07/17/18 05:35 Temperature -Last 24 Hours Temperature 99.6 F Temperature 98.5 F Temperature 98.2 F Temperature 98.2 F Temperature 98.7 F Temperature 98.8 F Temperature 98.5 F Temperature 98.4 F Temperature 98.3 F Temperature 98.5 F Results - Labs CBC & Chem 7: 07/17/18 05:37 07/17/18 05:37 Labs: Abnormal lab results 07/16/18 07/16/18 07/16/18 Range/Units 09:16 09:16 16:29 WBC 3.9 L (4.5-11.0) K/mm3 RBC 2.31 L (3.65-5.03) M/mm3 Hgb 6.7 L (10.1-14.3) gm/dl Hct 20.4 L (30.3-42.9) % RDW 15.8 H (13.2-15.2) % Lymph % (Auto) 36.0 H (13.4-35.0) % [place] % (Auto) 12.1 H (0.0-7.3) % Creatinine 0.6 L (0.7-1.2) mg/dL Calcium 8.0 L (8.4-10.2) mg/dL Crossmatch See Detail 07/17/18 07/17/18 Range/Units 05:37 05:37 WBC (4.5-11.0) K/mm3 RBC 2.66 L (3.65-5.03) M/mm3 Hgb 7.8 L (10.1-14.3) gm/dl Hct 23.9 L (30.3-42.9) % RDW 15.9 H (13.2-15.2) % Lymph % (Auto) (13.4-35.0) % [place] % (Auto) 10.8 H (0.0-7.3) % Creatinine (0.7-1.2) mg/dL Calcium 7.9 L (8.4-10.2) mg/dL Crossmatch
--- NOTE | 2018-07-17 07:49 | Consultation ---
History of Present Illness - Reason for Consult Consult date: 07/17/18 GPC bacteremia Requesting physician: MARVIN RODRIGEZ - History of Present Illness 42 y/o female with history of diabetes mellitus type 2, severe gastroparesis of unclear etiology, initially had a port-A-cath for TPN s/p multiple IV accesses infection/bacteremia, J-tube and G-tube, well known to our ID service; admitted on 07/14/2018 due to a- week history of malaise, weakness and intermittent fever. She came to the ED on 07/11/2018 due to flu-like symptoms (sore throat, runny nose), she was sent home. Then, she went to see Dr Ghosh found sick and was sent to the ED for blood cultures which were not collected on 07/12/2018 found with sinusitis sent home on zpak.. She then attended a baby shower when she experienced a high fever and [place] [facility] [place] There, blood cultures were drawn and she was sent home. She was called next morning to report her blood cultures were growing GPC in clusters. She came back to the ED. She has noted her G-tube with a funny odor and minimal discharge. Also reports a dry cough for a week. Of note, she has had multiple admissions due to CLABSI. August 2017 for septic shock from port-A-cath infection due to Klebsiella bacteremia. Port-A-cath s/p removal on 09/04/17. She then developed a chest wall collection. S/p bedside I+D. Port site culture grew + Stenotrophomona maltophilia. Treated with Levaquin 750 mg IV qday for 2 weeks until 09/22/17 via a new PICC line to her right arm. Re- admitted on 01/23/18 due to 2 day history of right arm PICC site swelling and redness associated with pain, no fever, blood cultures grew MSSA bacteremia, likely from PICC site infection/thrombus. PICC line was removed and a right Ramirez cath was placed. Treated with vancomycin 1 gm IV every 12 hours until 02/23/18. Readmitted on 06/07/18 with nausea, vomiting, fevers and redness around her J tube and foul odor and swelling to her Ramirez site. Blood cultures 06/07/2018 grew Acinetobacter baumannii treated with Levofloxacin 750mg IV every 24 hours for total 7 days ending 06/19/18. In the ED, temp 100, HR 112, R 20, O2 sat 98%, BP 119/63. WBC 5.9, Hg 8.1, Plat 185. Creat 0.7. UA neg. Blood culture 07/14/2018 yeast 2 of 4 bottles. CXR s howed no acute cardiopulmonary process. CTA chest No evidence of pulmonary embolus, aortic dissection, or vascular congestion. Patchy nodular infiltrates in both lower lobes, lingula and right middle lobe. No evidence of pleural effusion. Review of Systems: General: + fever, chills, nightsweats, unintentional weight change, or change in appetite Cutaneous: +Gtube discharge and odor Head: no headaches or injury Eyes: no changes in vision, eye pain, double vision Ears: no ear pain, ear discharge, ringing or hearing loss Nose: no nose bleeding, stuffiness Mouth & throat: no bleeding gums, no horseness, no dental problems, or swollen glands Neck: no pain, node enlargement/lumps, tyroid enlargement or tenderness Respiratory: + dry cough, wheezing, hemoptysis, pleuritic chest pain Cardiovascular: no chest pain, leg edema, cyanosis, EAST, orthopnea Musculoskeletal: no decreased joint motion, bone or joint pain, joint swelling, muscle aches Gastrointestinal: no nausea, vomiting, hematemesis, diarrhea, constipation, melena, bright red blood in stools, fecal incontinence, jaundice Genitourinary/Reproductive: no frequent urination, dysuria, hematuria, incontinence Neurogical: no seizures, no headaches, no weakness, no paresthesias, no loss of speech or vision; no memory loss, no vertigo, no tremors, no numbness Psychiatric: stable mood; no excessive anxiety, sadness or moodiness Past History Past Medical History: diabetes, DVT, other (gastroparesis, TPN) Past Surgical History: Other (G tube, J tube, TPN catheter) Social history: no significant social history Family history: no significant family history Medications and Allergies Allergies Allergy/AdvReac Type Severity Reaction Status Date / Time ketorolac [From Toradol] Allergy Swelling Verified 06/07/18 16:06 metoclopramide [From Reglan] Allergy Unknown Verified 06/07/18 16:06 Penicillins Allergy Swelling Verified 06/07/18 16:06 prochlorperazine Allergy Unknown Verified 06/07/18 16:06 [From Compazine] promethazine [From Phenergan] Allergy Swelling Verified 06/07/18 16:06 tramadol Allergy Swelling Verified 06/07/18 16:06 adhesive tape AdvReac Itching Verified 06/07/18 16:06 Apple Allergy Swelling Uncoded 06/09/18 15:36 Sour cream Allergy Swelling Uncoded 06/09/18 15:36 Whip cream Allergy Swelling Uncoded 06/09/18 15:36 Home Medications Medication Instructions Recorded Confirmed Last Taken Type Ondansetron [Zofran ODT TAB] 4 mg PO Q4HR PRN 03/04/18 07/14/18 04/03/18 History 4mg HYDROcodone/APAP 5-325 [[place] 1 each PO BID PRN #10 tablet 04/15/18 07/14/18 Unknown Rx 5-325 mg TAB] Enoxaparin [Lovenox] 80 mg SUB-Q Q12HR #30 syringe 06/14/18 07/14/18 Unknown Rx Acetaminophen/Codeine [Tylenol 1 tab PO Q6H PRN #12 tab 06/18/18 07/14/18 Unknown Rx /Codeine # 3 tab] Morphine Sulfate/0.9% NaCl/Pf 2 mg IV Q4H 07/14/18 07/14/18 Unknown History [Morphine 2 mg/ml-0.9% NaCl Syr] Active Meds: Active Medications Acetaminophen (Tylenol) 650 mg PO Q4H PRN PRN Reason: Pain MILD(1-3)/Fever >100.5/GONZALEZ Dextrose (D50w (25gm) Syringe) 50 ml IV PRN PRN PRN Reason: Hypoglycemia Diphenhydramine HCl (Benadryl) 25 mg IV Q6H PRN PRN Reason: Itching Last Admin: 07/17/18 05:41 Dose: 25 mg Documented by: Enoxaparin Sodium (Lovenox) 80 mg SUB-Q Q12HR [facility] Last Admin: 07/16/18 22:20 Dose: 80 mg Documented by: Levofloxacin/Dextrose (Levaquin 750mg/150ml) 750 mg in 150 mls @ 100 mls/hr IV QHS HERI; Protocol Last Admin: 07/17/18 00:03 Dose: 100 mls/hr Documented by: Amino Acids/Electrolytes/Dextrose (Tpn Adult) 2,400 mls @ 100 mls/hr IV DAILY@1999 [facility]; Protocol Stop: 07/17/18 19:59 Last Admin: 07/17/18 00:14 Dose: 100 mls/hr Documented by: Fluconazole (Diflucan) 200 mls @ 100 mls/hr IV Q24HR [facility]; Protocol Last Admin: 07/16/18 17:24 Dose: 100 mls/hr Documented by: Vancomycin HCl 1,250 mg/ (Sodium Chloride) 275 mls @ 166.667 mls/hr IV Q12H [facility] Last Admin: 07/17/18 05:33 Dose: 166.667 mls/hr Documented by: Morphine Sulfate (Morphine) 2 mg IV Q4H PRN PRN Reason: Pain , Severe (7-10) Last Admin: 07/17/18 03:42 Dose: 2 mg Documented by: Ondansetron HCl (Zofran) 4 mg IV Q4H PRN PRN Reason: Nausea And Vomiting Last Admin: 07/16/18 21:19 Dose: 4 mg Documented by: Oxycodone/Acetaminophen (Percocet 5/325) 1 tab PO Q6H PRN PRN Reason: Pain, Moderate (4-6) Last Admin: 07/17/18 05:40 Dose: 1 tab Documented by: Sodium Chloride (Sodium Chloride Flush Syringe 10 Ml) 10 ml IV BID [facility] Last Admin: 07/16/18 22:00 Dose: 10 ml Documented by: Sodium Chloride (Sodium Chloride Flush Syringe 10 Ml) 10 ml IV PRN PRN PRN Reason: LINE FLUSH Physical Examination - Physical Exam Narrative exam: General appearance: Alert in NAD, conversant Eyes: anicteric sclerae, moist conjunctivae; no lid-lag; PERRLA HENT: Atraumatic; oropharynx clear with moist mucous membranes and no mucosal ulcerations/no oral thrush; normal hard and soft palate. Normal external ears. Neck: Trachea midline; supple, no thyromegaly or lymphadenopathy Lungs: CTA CV: RRR, no murmurs Abdomen: Soft, non-tender; +G-tube with mild erythema and minimal serum d ischarge, J-tube Extremities: No peripheral edema or extremity lymphadenopathy Skin: multiple tattoes and piercing Psych: Appropriate affect, alert and oriented to person, place and time. Neuro: alert and oriented x 3. Moving all extermities - Constitutional Vitals: Vital Signs Temp Pulse Resp BP Pulse Ox 99.6 F 85 16 111/67 96 07/17/18 05:35 07/17/18 05:35 07/17/18 05:35 07/17/18 05:35 07/17/18 05:35 Temperature -Last 24 Hours Temperature 99.6 F Temperature 98.5 F Temperature 98.2 F Temperature 98.2 F Temperature 98.7 F Temperature 98.8 F Temperature 98.5 F Temperature 98.4 F Temperature 98.3 F Temperature 98.5 F Results - Labs CBC & Chem 7: 07/17/18 05:37 07/17/18 05:37 Labs: Abnormal lab results 07/16/18 07/16/18 07/16/18 Range/Units 09:16 09:16 16:29 WBC 3.9 L (4.5-11.0) K/mm3 RBC 2.31 L (3.65-5.03) M/mm3 Hgb 6.7 L (10.1-14.3) gm/dl Hct 20.4 L (30.3-42.9) % RDW 15.8 H (13.2-15.2) % Lymph % (Auto) 36.0 H (13.4-35.0) % [place] % (Auto) 12.1 H (0.0-7.3) % Creatinine 0.6 L (0.7-1.2) mg/dL Calcium 8.0 L (8.4-10.2) mg/dL Crossmatch See Detail 07/17/18 07/17/18 Range/Units 05:37 05:37 WBC (4.5-11.0) K/mm3 RBC 2.66 L (3.65-5.03) M/mm3 Hgb 7.8 L (10.1-14.3) gm/dl Hct 23.9 L (30.3-42.9) % RDW 15.9 H (13.2-15.2) % Lymph % (Auto) (13.4-35.0) % [place] % (Auto) 10.8 H (0.0-7.3) % Creatinine (0.7-1.2) mg/dL Calcium 7.9 L (8.4-10.2) mg/dL Crossmatch Assessment and Plan Cultures: Blood culture [place] [facility] Blood culture 07/14/2018 yeast 2 of 4 bottles. Assessment: 42 y/o female with history of diabetes mellitus type 2, severe gastroparesis of unclear etiology, initially had a port-A-cath for TPN s/p multiple IV accesses infection/bacteremia, J-tube (for t-feeds and meds) and G-tube (for stomach decompression?), well known to our ID service; admitted on 07/14/2018 due to a- week history of malaise, weakness, cough and intermittent fever: 1) Sepsis: Present on admission, manifested by fever, tachycardia. Etiology most likely due to fungemia and bacteremia +/- pneumonia. 2) Fungemia and bacteremia: well known for multiple IV accesses infections. Blood culture 07/13/2018? at [facility] in clusters. Blood culture 07/14/2018 yeast 2 of 4 bottles. S/p Ramirez removal and placement of a right femoral TLC on 07/16/2018. Should r/o endocarditis. 3) Pneumonia: likely CAP. CXR showed no acute cardiopulmonary process. CTA chest No evidence of pulmonary embolus, aortic dissection, or vascular congestion. Patchy nodular infiltrates in both lower lobes, lingula and right middle lobe. No evidence of pleural effusion. 4) G-tube site infection ? cellulitis v/s localized fungal 5) Severe gastroparesis of unclear etiology: seen by GI at [place]. 6) History of multiple admissions due to CLABSI. -August 2017 for septic shock from port-A-cath infection due to Klebsiella bacteremia. Port-A-cath s/p removal on 09/04/17. She then developed a chest wall collection. S/p bedside I+D. Port site culture grew + Stenotrophomona maltophilia. Treated with Levaquin 750 mg IV qday for 2 weeks until 09/22/17 via a new PICC line to her right arm. -Re-admitted on 01/23/18 due to 2 day history of right arm PICC site swelling and redness associated with pain, no fever, blood cultures grew MSSA bacteremia, likely from PICC site infection/thrombus. PICC line was removed and a right Ramirez cath was placed. Treated with vancomycin 1 gm IV every 12 hours until 02/23/18. -Readmitted on 06/07/18 with nausea, vomiting, fevers and redness around her J tube and foul odor and swelling to her Ramirez site. Blood cultures 06/07/2018 grew Acinetobacter baumannii treated with Levofloxacin 750mg IV every 24 hours for total 7 days ending 06/19/18. Recommendations: - remove femoral TLC as blood cx positive for yeast, discussed with Dr Fallon - follow-up blood cultures - repeat blood culture today - obtain TTE - request final blood cultures from [facility] - continue vancomycin and levaquin D3 - continue fluconazole D2 - GI med consult - educated about risk of /serious bacteremia complications as endocarditis Will follow. Eliza Rushing MD Infectious Diseases [employer] [facility] M [phone] O [phone]
--- NOTE | 2018-07-17 08:33 | Event Note ---
Date: 07/17/18 Discussed situation with nursing. Requested that nursing obtain LUE IV access due to RUE subclavian vein stenosis. Once LUE IV access obtained, switch TPN to PPN. Then nursing can remove femoral TLC per ID request. Nursing understands. If unable to obtain IV access, may need to keep TLC catheter.
[2018-07-17] MEDS: DIFLUCAN 200 ML IV SCH (09:07)
--- NOTE | 2018-07-17 09:21 | Progress Note ---
Assessment and Plan Cultures: Blood culture at [facility] [place] [facility] Blood culture 07/14/2018 Maria Teresa albicans 2 of 4 bottles. Assessment: 42 y/o female with history of diabetes mellitus type 2, severe gastroparesis of unclear etiology, initially had a port-A-cath for TPN s/p multiple IV accesses infection/bacteremia, J-tube (for t-feeds and meds) and G-tube (for stomach decompression?), well known to our ID service; admitted on 07/14/2018 due to a- week history of malaise, weakness, cough and intermittent fever: 1) Sepsis: Resolved. Present on admission, manifested by fever, tachycardia. Etiology most likely due to fungemia and bacteremia +/- pneumonia. 2) Maria Teresa Albicans Fungemia and GPC bacteremia: well known for multiple IV accesses infections. Blood culture 07/13/2018? at [facility] [place] [facility]PC in clusters. Blood culture 07/14/2018 Maria Teresa albicans 2 of 4 bottles. S/p Ramirez removal and placement of a right femoral TLC on 07/16/2018. Should r/o endocarditis. 3) Pneumonia: likely CAP. CXR showed no acute cardiopulmonary process. CTA chest No evidence of pulmonary embolus, aortic dissection, or vascular congestion. Patchy nodular infiltrates in both lower lobes, lingula and right middle lobe. No evidence of pleural effusion. 4) G-tube site infection ? cellulitis v/s localized fungal 5) Severe gastroparesis of unclear etiology: seen by GI at [place]. 6) History of multiple admissions due to CLABSI. -August 2017 for septic shock from port-A-cath infection due to Klebsiella bacteremia. Port-A-cath s/p removal on 09/04/17. She then developed a chest wall collection. S/p bedside I+D. Port site culture grew + Stenotrophomona maltophilia. Treated with Levaquin 750 mg IV qday for 2 weeks until 09/22/17 via a new PICC line to her right arm. -Re-admitted on 01/23/18 due to 2 day history of right arm PICC site swelling and redness associated with pain, no fever, blood cultures grew MSSA bacteremia, likely from PICC site infection/thrombus. PICC line was removed and a right Ramirez cath was placed. Treated with vancomycin 1 gm IV every 12 hours until 02/23/18. -Readmitted on 06/07/18 with nausea, vomiting, fevers and redness around her J tube and foul odor and swelling to her Ramirez site. Blood cultures 06/07/2018 grew Acinetobacter baumannii treated with Levofloxacin 750mg IV every 24 hours for total 7 days ending 06/19/18. Recommendations: - remove femoral TLC as blood cx positive for yeast- IV access obtained LUE - f/u repeat blood culture today - f/u TTE - f/u final blood cultures from [facility] [place] - discussion with case management - continue vancomycin and levaquin D4 - continue fluconazole D3 - f/u GI med consult [facility] M: [phone] O:[phone] Subjective Date of service: 07/17/18 Interval history: Patient seen and examined. Generalized weakness reported, no pain. no fevers. Nurses notes, labs and imaging reviewed, discussed with patient. Objective - Exam Narrative Exam: General appearance: Alert in NAD, conversant Eyes: anicteric sclerae, moist conjunctivae; no lid-lag; PERRLA HENT: Atraumatic; oropharynx clear with moist mucous membranes and no mucosal ulcerations/no oral thrush; normal hard and soft palate. Normal external ears. Neck: Trachea midline; supple, no thyromegaly or lymphadenopathy Lungs: CTA CV: RRR, no murmurs Abdomen: Soft, non-tender; +G-tube with mild erythema and minimal serum discharge, +right femoral TLC Extremities: No peripheral edema or extremity lymphadenopathy Skin: multiple tattoes and piercing Psych: Appropriate affect, alert and oriented to person, place and time. Neuro: alert and oriented x 3. Moving all extermities - Constitutional Vitals: Vital Signs Temp Pulse Resp BP Pulse Ox 99.6 F 85 16 111/67 96 07/17/18 05:35 07/17/18 05:35 07/17/18 05:35 07/17/18 05:35 07/17/18 05:35 Temperature -Last 24 Hours Temperature 99.6 F Temperature 98.5 F Temperature 98.2 F Temperature 98.2 F Temperature 98.7 F Temperature 98.8 F Temperature 98.5 F Temperature 98.4 F Temperature 98.3 F Temperature 98.5 F - Labs CBC & Chem 7: 07/17/18 05:37 07/17/18 05:37 Labs: Abnormal lab results 07/16/18 07/16/18 07/16/18 Range/Units 09:16 09:16 16:29 WBC 3.9 L (4.5-11.0) K/mm3 RBC 2.31 L (3.65-5.03) M/mm3 Hgb 6.7 L (10.1-14.3) gm/dl Hct 20.4 L (30.3-42.9) % RDW 15.8 H (13.2-15.2) % Lymph % (Auto) 36.0 H (13.4-35.0) % [place] % (Auto) 12.1 H (0.0-7.3) % Creatinine 0.6 L (0.7-1.2) mg/dL Calcium 8.0 L (8.4-10.2) mg/dL Crossmatch See Detail 07/17/18 07/17/18 Range/Units 05:37 05:37 WBC (4.5-11.0) K/mm3 RBC 2.66 L (3.65-5.03) M/mm3 Hgb 7.8 L (10.1-14.3) gm/dl Hct 23.9 L (30.3-42.9) % RDW 15.9 H (13.2-15.2) % Lymph % (Auto) (13.4-35.0) % [place] % (Auto) 10.8 H (0.0-7.3) % Creatinine (0.7-1.2) mg/dL Calcium 7.9 L (8.4-10.2) mg/dL Crossmatch
[2018-07-17] MEDS: LOVENOX SUB-Q SCH ×2 (10:00→22:00)
[2018-07-17] MEDS ORDERED: TRIPLE ANTIBIOTIC TP ONE (13:00)
[2018-07-17] MEDS: SODIUM CHLORIDE FLUSH SYRINGE 10 ML IV SCH ×2 (13:11→23:23)
[2018-07-17] MEDS ORDERED: SIMPLE SYRUP FEEDTUBE PRN ×2 (13:49)
[2018-07-17] MEDS ORDERED: PANCREAZE DR 10,500 UNIT FEEDTUBE PRN (13:49)
[2018-07-17] MEDS ORDERED: SODIUM BICARBONATE FEEDTUBE PRN (13:49)
--- NOTE | 2018-07-17 13:51 | Progress Note ---
Assessment and Plan Community-acquired pneumonia Bacteremia? w/o sepsis - blood cx growing yeast now Diabetes complicated by gastroparesis h/o DVT on AC Plan cont IV fluid, continue IV Levaquin, vancomycin, fluconazole Follow blood cultures, 2d echo cont to Check fingersticks, consulted dietary for TF, will hold TPN for now Patient on full dose Lovenox for DVT, as needed percocet Vascular consulted to see the patient - s/p removal of catheter with temporary peripheral parenteral nutrition and right frmoral TLC placement. BUt need to remove TLC as blood Cx growing Yeast Requested medical record from [facility] brief history: 42-year-old woman with a history of diabetes completed by gastroparesis, on TPN nutrition, catheter related DVT and recent catheter removal and placement with SVC angioplasty and thrombectomy , was sent to the emergency room by Dr Ghosh for evaluation of bacteremia. Patient stated that last Saturday she had nausea and vomiting and diarrhea. Her diarrhea resolved but the fever was persistent, she was seen in the emergency room at [facility], blood cultures were done yesterday, they called her to say that her blood cultures have been positive. Subjective Date of service: 07/17/18 Interval history: patient seen and examined denies chest pain, afebrile Plan To start TF today Objective - Exam Narrative Exam: General appearance: Present: no acute distress, well-nourished - EENT Eyes: PERRL, EOM intact ENT: hearing intact, clear oral mucosa Ears: bilateral: normal - Neck Neck: supple, normal ROM - Respiratory Respiratory effort: normal Respiratory: bilateral: CTA - Cardiovascular Rhythm: regular Heart Sounds: Present: S1 & S2. Absent: gallop, rub Extremities: pulses intact, No edema, normal color, Full ROM - Gastrointestinal General gastrointestinal: Present: soft, non-tender, non-distended, normal bowel sounds - Integumentary Integumentary: clear, warm, dry - Musculoskeletal Musculoskeletal: 1, strength equal bilaterally - Neurologic Neurologic: moves all extremities - Psychiatric Psychiatric: memory intact, appropriate mood/affect, intact judgment & insight - Constitutional Vitals: Vital Signs - 12hr 07/17/18 07/17/18 07/17/18 05:35 09:06 12:00 Temperature 99.6 F 98.6 F Pulse Rate 85 81 Respiratory 16 18 20 Rate Blood Pressure 111/67 138/72 O2 Sat by Pulse 96 96 Oximetry 07/17/18 13:10 Temperature Pulse Rate Respiratory 20 Rate Blood Pressure O2 Sat by Pulse Oximetry - Labs CBC & Chem 7: 07/17/18 05:37 07/17/18 05:37 Labs: Abnormal lab results 07/16/18 07/17/18 07/17/18 Range/Units 16:29 05:37 05:37 RBC 2.66 L (3.65-5.03) M/mm3 Hgb 7.8 L (10.1-14.3) gm/dl Hct 23.9 L (30.3-42.9) % RDW 15.9 H (13.2-15.2) % [place] % (Auto) 10.8 H (0.0-7.3) % POC Glucose (70-105) Calcium 7.9 L (8.4-10.2) mg/dL Crossmatch See Detail 07/17/18 Range/Units 12:03 RBC (3.65-5.03) M/mm3 Hgb (10.1-14.3) gm/dl Hct (30.3-42.9) % RDW (13.2-15.2) % [place] % (Auto) (0.0-7.3) % POC Glucose 113 H (70-105) Calcium (8.4-10.2) mg/dL Crossmatch
[2018-07-17] MEDS ORDERED: TPN ADULT 2,400 ML IV SCH (20:00)
[2018-07-18] MEDS: MORPHINE IV PRN ×5 (03:04→22:06)
[2018-07-18 06:32] LABS: BUN/Creatinine Ratio 14; Blood Urea Nitrogen 10 mg/dL (7-17); Calcium 8.4 mg/dL (8.4-10.2); Hemolysis Index 1
[2018-07-18] MEDS ORDERED: PANCREAZE DR 10,500 UNIT FEEDTUBE PRN ×2 (10:20→10:44)
[2018-07-18] MEDS ORDERED: SODIUM BICARBONATE FEEDTUBE PRN ×2 (10:20→10:44)
[2018-07-18] MEDS ORDERED: SIMPLE SYRUP FEEDTUBE PRN ×4 (10:20→10:44)
[2018-07-18] MEDS: LOVENOX SUB-Q SCH ×2 (10:24→22:10)
[2018-07-18] MEDS: PERCOCET 5/325 PO PRN ×2 (10:24→18:55)
[2018-07-18] MEDS: BENADRYL IV PRN (10:24)
[2018-07-18] MEDS: VANCOMYCIN 1,250 MG in NACL 0.9% 250ML 250 ML IV SCH (10:25)
[2018-07-18] MEDS: SODIUM CHLORIDE FLUSH SYRINGE 10 ML IV SCH ×2 (12:39→22:12)
--- NOTE | 2018-07-18 13:20 | Progress Note ---
Assessment and Plan Community-acquired pneumonia Bacteremia? with sepsis - blood cx growing yeast now, report from [facility] still not available Diabetes complicated by gastroparesis h/o DVT on AC Plan cont IV fluid, continue IV Levaquin, vancomycin, fluconazole Follow blood cultures, 2d echo cont to Check fingersticks, consulted dietary for TF, will hold TPN for now Patient on full dose Lovenox for DVT, as needed percocet Vascular consulted to see the patient - s/p removal of catheter with temporary peripheral parenteral nutrition and right frmoral TLC placement. BUt again removed TLC as blood Cx growing Yeast Requested medical record from [facility] brief history: 42-year-old woman with a history of diabetes completed by gastroparesis, on TPN nutrition, catheter related DVT and recent catheter removal and placement with SVC angioplasty and thrombectomy , was sent to the emergency room by Dr Ghosh for evaluation of bacteremia. Patient stated that last Saturday she had nausea and vomiting and diarrhea. Her diarrhea resolved but the fever was persistent, she was seen in the emergency room at [facility], blood cultures were done, they called her to say that her blood cultures have been positive. Blood cx at [facility] growing yeast. Plan to hold TPN for now and restart TF. Subjective Date of service: 07/18/18 Interval history: patient seen and examined denies chest pain, afebrile Plan To start TF today Objective - Exam Narrative Exam: General appearance: Present: no acute distress, well-nourished - EENT Eyes: PERRL, EOM intact ENT: hearing intact, clear oral mucosa Ears: bilateral: normal - Neck Neck: supple, normal ROM - Respiratory Respiratory effort: normal Respiratory: bilateral: CTA - Cardiovascular Rhythm: regular Heart Sounds: Present: S1 & S2. Absent: gallop, rub Extremities: pulses intact, No edema, normal color, Full ROM - Gastrointestinal General gastrointestinal: Present: soft, non-tender, non-distended, normal bowel sounds - Integumentary Integumentary: clear, warm, dry - Musculoskeletal Musculoskeletal: 1, strength equal bilaterally - Neurologic Neurologic: moves all extremities - Psychiatric Psychiatric: memory intact, appropriate mood/affect, intact judgment & insight - Constitutional Vitals: Vital Signs - 12hr 07/18/18 07/18/18 05:54 11:37 Temperature 98.1 F 97.8 F Pulse Rate 83 74 Respiratory 18 18 Rate Blood Pressure 129/63 148/78 O2 Sat by Pulse 94 95 Oximetry - Labs CBC & Chem 7: 07/17/18 05:37 07/18/18 05:48
[2018-07-18] MEDS: DIFLUCAN 200 ML IV SCH (13:55)
--- NOTE | 2018-07-18 14:21 | Progress Note ---
Assessment and Plan Cultures: Blood culture at [facility] Blood culture 07/14/2018 Maria Teresa albicans 2 of 4 bottles. Blood culture 07/16/2018 no growth Assessment: 42 y/o female with history of diabetes mellitus type 2, severe gastroparesis of unclear etiology, initially had a port-A-cath for TPN s/p multiple IV accesses infection/bacteremia, J-tube (for t-feeds and meds) and G-tube (for stomach decompression?), well known to our ID service; admitted on 07/14/2018 due to a- week history of malaise, weakness, cough and intermittent fever: 1) Sepsis: Present on admission, manifested by fever, tachycardia. Etiology most likely due to fungemia and bacteremia +/- pneumonia. 2) Fungemia and GPC bacteremia: well known for multiple IV accesses infections. Blood culture 07/13/2018? at [facility] in clusters. Blood culture 07/14/2018 Maria Teresa albicans 2 of 4 bottles. S/p Ramirez removal and placement of a right femoral TLC on 07/16/2018. Should r/o endocarditis. TTE no vegetations 3) Pneumonia: likely CAP. CXR showed no acute cardiopulmonary process. CTA chest No evidence of pulmonary embolus, aortic dissection, or vascular c ongestion. Patchy nodular infiltrates in both lower lobes, lingula and right middle lobe. No evidence of pleural effusion. 4) G-tube site infection ? cellulitis v/s localized fungal 5) Severe gastroparesis of unclear etiology: seen by GI at [place]. 6) History of multiple admissions due to CLABSI. -August 2017 for septic shock from port-A-cath infection due to Klebsiella bacteremia. Port-A-cath s/p removal on 09/04/17. She then developed a chest wall collection. S/p bedside I+D. Port site culture grew + Stenotrophomona maltophilia. Treated with Levaquin 750 mg IV qday for 2 weeks until 09/22/17 via a new PICC line to her right arm. -Re-admitted on 01/23/18 due to 2 day history of right arm PICC site swelling and redness associated with pain, no fever, blood cultures grew MSSA bacteremia, likely from PICC site infection/thrombus. PICC line was removed and a right Ramirez cath was placed. Treated with vancomycin 1 gm IV every 12 hours until 02/23/18. -Readmitted on 06/07/18 with nausea, vomiting, fevers and redness around her J tube and foul odor and swelling to her Ramirez site. Blood cultures 06/07/2018 grew Acinetobacter baumannii treated with Levofloxacin 750mg IV every 24 hours for total 7 days ending 06/19/18. Recommendations: - follow-up repeat blood culture today - request final blood cultures from [facility] - pending - continue vancomycin D4 until MRSA is r/o - stop levaquin D4 - continue fluconazole IV for now D3 - awaiting for GI med eval. If absorption is in doubt will continue fluconazole IV. - GI med consult - pending Will follow on Saturday Eliza Rushing MD Infectious Diseases [employer] Up Technician [facility] M [phone] O [phone] Subjective Date of service: 07/18/18 Principal diagnosis: bacteremia Interval history: Feels better, debilitated, no fever Objective - Exam Narrative Exam: General appearance: Alert in NAD, conversant Eyes: anicteric sclerae, moist conjunctivae; no lid-lag; PERRLA HENT: Atraumatic; oropharynx clear with moist mucous membranes and no mucosal ulcerations/no oral thrush; normal hard and soft palate. Normal external ears. Neck: Trachea midline; supple, no thyromegaly or lymphadenopathy Lungs: CTA CV: RRR, no murmurs Abdomen: Soft, non-tender; +G-tube with mild erythema and minimal serum discharge, J-tube Extremities: No peripheral edema or extremity lymphadenopathy Skin: multiple tattoes and piercing Psych: Appropriate affect, alert and oriented to person, place and time. Neuro: alert and oriented x 3. Moving all extermities - Constitutional Vitals: Vital Signs Temp Pulse Resp BP Pulse Ox 97.8 F 74 18 148/78 95 07/18/18 11:37 07/18/18 11:37 07/18/18 11:37 07/18/18 11:37 07/18/18 11:37 Temperature -Last 24 Hours Temperature 97.8 F Temperature 98.1 F Temperature 97.8 F Temperature 98.2 F - Labs CBC & Chem 7: 07/17/18 05:37 07/18/18 05:48
[2018-07-18] MEDS: VANCOMYCIN/NS 1 GM/250 ML 1 GM/250 ML BAG IV SCH ×2 (18:34→22:22)
[2018-07-18] MEDS: ZOFRAN IV PRN (18:55)
[2018-07-18] MEDS: LEVAQUIN 750MG/150ML 750 MG/150 ML BAG IV SCH (22:06)
[2018-07-18] MEDS ORDERED: NACL 0.9% 500 ML 500 ML ONE (22:44)
[2018-07-19] MEDS: PERCOCET 5/325 PO PRN ×4 (01:17→22:02)
[2018-07-19] MEDS: BENADRYL IV PRN ×2 (01:17→11:52)
[2018-07-19] MEDS: SODIUM CHLORIDE FLUSH SYRINGE 10 ML IV PRN ×2 (01:18→03:22)
[2018-07-19] MEDS: VANCOMYCIN/NS 1 GM/250 ML 1 GM/250 ML BAG IV SCH ×2 (03:13→19:21)
[2018-07-19] MEDS: MORPHINE IV PRN ×4 (03:22→23:18)
[2018-07-19 06:01] LABS: Basophils % (Auto) 0.2 % (0.0-1.8); Hematocrit 25.7 % (30.3-42.9); Hemoglobin 8.5 gm/dl (10.1-14.3); Lymphocytes # (Auto) 1.7 K/mm3 (1.2-5.4); Lymphocytes % (Auto) 48.3 % (13.4-35.0); Mean Corpuscular HGB Conc 33 % (30-34); Mean Corpuscular Volume 90 fl (79-97); Monocytes # (Auto) 0.4 K/mm3 (0.0-0.8); Monocytes % (Auto) 12.8 % (0.0-7.3); Platelet Count 248 K/mm3 (140-440); Red Blood Count 2.87 M/mm3 (3.65-5.03); Red Cell Distribution Width 15.6 % (13.2-15.2)
[2018-07-19 06:37] LABS: BUN/Creatinine Ratio 10; Blood Urea Nitrogen 7 mg/dL (7-17); Calcium 8.4 mg/dL (8.4-10.2); Hemolysis Index 4
[2018-07-19] MEDS: LOVENOX SUB-Q SCH ×2 (11:52→21:22)
[2018-07-19] MEDS: ZOFRAN IV PRN ×3 (11:53→23:18)
--- NOTE | 2018-07-19 12:21 | Progress Note ---
Assessment and Plan Assessment and plan: 42-year-old woman with a history of diabetes completed by gastroparesis, on TPN nutrition, catheter related DVT and recent catheter removal and placement with SVC angioplasty and thrombectomy , was sent to the emergency room by Dr Ghosh for evaluation of bacteremia. Patient stated that last Saturday she had nausea and vomiting and diarrhea. Her diarrhea resolved but the fever was persistent, she was seen in the emergency room at [facility], blood cultures were done, they called her to say that her blood cultures have been positive. Blood cx at [facility] growing yeast. Plan to hold TPN for now and restart TF. Community-acquired pneumonia Bacteremia? with sepsis - blood cx growing yeast now, report from [facility] still not available; ID is following Diabetes complicated by gastroparesis h/o DVT on AC Plan cont IV fluid, continue IV Levaquin, vancomycin, fluconazole Repeat blood culture is negative so far, 2d echo limited study but didn't show any vegetation cont to Check fingersticks, continue tube feeding Patient on full dose Lovenox for DVT, as needed percocet Vascular consulted to see the patient - s/p removal of catheter with temporary peripheral parenteral nutrition and right frmoral TLC placement. BUt again removed TLC as blood Cx growing Yeast Requested medical record from [facility] History Interval history: Patient was seen and evaluated this morning, patient is complaining of right upper extremity swelling and tenderness. Hospitalist Physical - Physical exam Narrative exam: Not in cardiopulmonary distress. The patient appeared well nourished and normally developed. Vital signs as documented. Head exam is unremarkable. No scleral icterus . Neck is without jugular venous distension, thyromegaly, or carotid bruits. Lungs are clear to auscultation. Cardiac exam reveals regular rate and Rhythm. First and second heart sounds normal. No murmurs, rubs or gallops. Abdominal exam reveals G-tube in place. Extremities are nonedematous and both femoral and pedal pulses are normal. AGRICULTURAL SYSTEMS SPECIALIST: Alert and oriented 3. No focal weakness. - Constitutional Vitals: Temp Pulse Resp BP Pulse Ox 97.9 F 80 17 107/71 95 07/19/18 05:49 07/19/18 05:49 07/19/18 05:49 07/19/18 05:49 07/19/18 05:49 General appearance: Present: no acute distress, well-nourished Results - Labs CBC & Chem 7: 07/19/18 05:43 07/19/18 05:43 Labs: Laboratory Last Values WBC 3.5 K/mm3 (4.5-11.0) L 07/19/18 05:43 RBC 2.87 M/mm3 (3.65-5.03) L 07/19/18 05:43 Hgb 8.5 gm/dl (10.1-14.3) L 07/19/18 05:43 Hct 25.7 % (30.3-42.9) L 07/19/18 05:43 MCV 90 fl (79-97) 07/19/18 05:43 MCH 30 pg (28-32) 07/19/18 05:43 MCHC 33 % (30-34) 07/19/18 05:43 RDW 15.6 % (13.2-15.2) H 07/19/18 05:43 Plt Count 248 K/mm3 (140-440) 07/19/18 05:43 Lymph % (Auto) 48.3 % (13.4-35.0) H 07/19/18 05:43 Christian % (Auto) 12.8 % (0.0-7.3) H 07/19/18 05:43 Eos % (Auto) 0.0 % (0.0-4.3) 07/19/18 05:43 Baso % (Auto) 0.2 % (0.0-1.8) 07/19/18 05:43 Lymph # 1.7 K/mm3 (1.2-5.4) 07/19/18 05:43 Christian # 0.4 K/mm3 (0.0-0.8) 07/19/18 05:43 Eos # 0.0 K/mm3 (0.0-0.4) 07/19/18 05:43 Baso # 0.0 K/mm3 (0.0-0.1) 07/19/18 05:43 Seg Neutrophils % 38.7 % (40.0-70.0) L 07/19/18 05:43 Seg Neutrophils # 1.3 K/mm3 (1.8-7.7) L 07/19/18 05:43 APTT 32.6 Sec. (24.2-36.6) 07/14/18 20:03 D-Dimer 719.58 ng/mlDDU (0-234) H 07/14/18 20:03 Sodium 139 mmol/L (137-145) 07/19/18 05:43 Potassium 3.9 mmol/L (3.6-5.0) 07/19/18 05:43 Chloride 103.9 mmol/L (98-107) 07/19/18 05:43 Carbon Dioxide 25 mmol/L (22-30) 07/19/18 05:43 Anion Gap 14 mmol/L 07/19/18 05:43 BUN 7 mg/dL (7-17) 07/19/18 05:43 Creatinine 0.7 mg/dL (0.7-1.2) 07/19/18 05:43 Estimated GFR > 60 ml/min 07/19/18 05:43 BUN/Creatinine Ratio 10 % 07/19/18 05:43 Glucose 86 mg/dL (65-100) 07/19/18 05:43 POC Glucose 80 (70-105) 07/19/18 11:36 Lactic Acid 1.80 mmol/L (0.7-2.0) 07/14/18 23:33 Calcium 8.4 mg/dL (8.4-10.2) 07/19/18 05:43 Phosphorus 3.30 mg/dL (2.5-4.5) 07/18/18 05:48 Magnesium 2.10 mg/dL (1.7-2.3) 07/18/18 05:48 Total Bilirubin 0.30 mg/dL (0.1-1.2) 07/14/18 20:03 AST 18 units/L (5-40) 07/14/18 20:03 ALT 29 units/L (7-56) 07/14/18 20:03 Alkaline Phosphatase 138 units/L (35-129) H 07/14/18 20:03 Total Protein 7.1 g/dL (6.3-8.2) 07/14/18 20:03 Albumin 3.4 g/dL (3.9-5) L 07/14/18 20:03 Albumin/Globulin Ratio 0.9 % 07/14/18 20:03 Urine Color Yellow (Yellow) 07/14/18 Unknown Urine Turbidity Clear (Clear) 07/14/18 Unknown Urine pH 5.0 (5.0-7.0) 07/14/18 Unknown Ur Specific [place] > 1.059 (1.003-1.030) H 07/14/18 Unknown Urine Protein <15 mg/dl mg/dL (Negative) 07/14/18 Unknown Urine Glucose (UA) Neg mg/dL (Negative) 07/14/18 Unknown Urine Ketones Neg mg/dL (Negative) 07/14/18 Unknown Urine Blood Mod (Negative) 07/14/18 Unknown Urine Nitrite Neg (Negative) 07/14/18 Unknown Urine Bilirubin Neg (Negative) 07/14/18 Unknown Urine Urobilinogen < 2.0 mg/dL (<2.0) 07/14/18 Unknown Ur Leukocyte Esterase Neg (Negative) 07/14/18 Unknown Urine WBC (Auto) 2.0 /HPF (0.0-6.0) 07/14/18 Unknown Urine RBC (Auto) 5.0 /HPF (0.0-6.0) 07/14/18 Unknown U Epithel Cells (Auto) 4.0 /HPF (0-13.0) 07/14/18 Unknown Urine Mucus Few /HPF 07/14/18 Unknown Vancomycin Trough 9.5 ug/mL (5.0-20.0) 07/18/18 05:48 Blood Type O POSITIVE 07/16/18 16:29 Antibody Screen Negative 07/16/18 16:29 Crossmatch See Detail 07/16/18 16:29 Active Medications - Current Medications Current Medications: Generic Name Dose Route Start Last Admin Trade Name Freq PRN Reason Stop Dose Admin Acetaminophen 650 mg 07/15/18 00:43 Tylenol PO Q4H PRN Pain MILD(1-3)/Fever >100.5/GONZALEZ Lipase/Protease/Amylase 1 each 07/17/18 13:49 Ruddy Zazueta 10,500 Unit FEEDTUBE PRN PRN For Clogged Feeding Tube Lipase/Protease/Amylase 1 each 07/18/18 10:44 Ruddy Zazueta 10,500 Unit FEEDTUBE PRN PRN For Clogged Feeding Tube Dextrose 50 ml 07/15/18 00:44 D50w (25gm) Syringe IV PRN PRN Hypoglycemia Diphenhydramine HCl 25 mg 07/15/18 12:30 07/19/18 11:52 Benadryl IV 25 mg Q6H PRN Administration Itching Enoxaparin Sodium 80 mg 07/15/18 10:00 07/19/18 11:52 Lovenox SUB-Q 80 mg Q12HR HERI Administration Levofloxacin/Dextrose 750 mg in 150 mls @ 100 mls/hr 07/15/18 22:00 07/18/18 22:06 Levaquin 750mg/150ml IV 100 mls/hr QHS HERI Administration Protocol Fluconazole 200 mls @ 100 mls/hr 07/16/18 16:00 07/18/18 13:55 Diflucan IV 100 mls/hr Q24HR HERI Administration Protocol Vancomycin HCl 1 gm in 250 mls @ 166.667 mls/hr 07/18/18 18:00 07/19/18 03:13 Vancomycin/Ns 1 Gm/250 Ml IV 166.667 mls/hr Q8H HERI Administration Dextrose/Sodium Chloride 1,000 mls @ 75 mls/hr 07/18/18 22:00 D5ns IV DIRECT HERI Morphine Sulfate 2 mg 07/15/18 00:43 07/19/18 11:52 Morphine IV 2 mg Q4H PRN Administration Pain , Severe (7-10) Ondansetron HCl 4 mg 07/15/18 00:43 07/19/18 11:53 Zofran IV 4 mg Q4H PRN Administration Nausea And Vomiting Oxycodone/Acetaminophen 1 tab 07/16/18 18:02 07/19/18 06:51 Percocet 5/325 PO 1 tab Q6H PRN Administration Pain, Moderate (4-6) Simple Syrup 15 ml 07/17/18 13:49 Simple Syrup FEEDTUBE PRN PRN Hypoglycemia Simple Syrup 30 ml 07/17/18 13:49 Simple Syrup FEEDTUBE PRN PRN Hypoglycemia Simple Syrup 15 ml 07/18/18 10:44 Simple Syrup FEEDTUBE PRN PRN Hypoglycemia Simple Syrup 30 ml 07/18/18 10:44 Simple Syrup FEEDTUBE PRN PRN Hypoglycemia Sodium Bicarbonate 325 mg 07/17/18 13:49 Sodium Bicarbonate FEEDTUBE PRN PRN For Clogged Feeding Tube Sodium Bicarbonate 325 mg 07/18/18 10:44 Sodium Bicarbonate FEEDTUBE PRN PRN For Clogged Feeding Tube Sodium Chloride 10 ml 07/15/18 10:00 07/18/18 22:12 Sodium Chloride Flush Syringe 10 Ml IV 10 ml BID HERI Administration Sodium Chloride 10 ml 07/15/18 00:43 07/19/18 03:22 Sodium Chloride Flush Syringe 10 Ml IV 10 ml PRN PRN Administration LINE FLUSH Nutrition/Malnutrition Assess - Dietary Evaluation Nutrition/Malnutrition Findings: Nutrition Notes Start: 07/15/18 09:51 Freq: Status: Active Protocol: Document 07/19/18 10:54 LP (Rec: 07/19/18 10:58 LP [id number]) Nutrition Notes Initial or Follow up Brief Note Current Diet Glucerna 1.2 at 20ml/hr Height 5 ft 8 in Weight 78.5 kg [place] Body Weight (kg) 63.63 BMI 26.3 Subjective/Other Information Pt tolerating TF at 20ml/hr. Made pt aware that we would be increasing rate slowly. Percent of energy/protein needs met: 30%/48% Burn Absent Trauma Absent #1 Nutrition Diagnosis Inadequate oral intake Diagnosis Progress(for reassessment Continues documentation) Is patient on ventilator? No Is Patient Ambulatory and/or Out of Bed Yes REE-([place]-ambulatory/OOB) [ 1935.050 [id number]] Calculation Used for Recommendations [facility] Additional Notes Protein Needs: 63-79g (0.8-1g/ kg) Fluid Needs: 1 ml/kcal Nutrition Intervention Change Diet Order: TF Nutrition Support: Increase Glucerna 1.2 to 25ml/ hr Flush 50ml q8h Kcal 720 Protein (gm) 36 Fluid (mL) 483 Follow-Up By: 07/20/18 Additional Comments Follow for TF tolerance/ increase TF
--- NOTE | 2018-07-19 12:49 | Progress Note ---
Assessment and Plan 42 year old female with gastroparesis chronically with G-tube, J-tube, and Ramirez catheter. Ramirez catheter has been removed. Hopefully can avoid placing new Ramirez catheter if patient does not need TPN. Recommend discontinuation of TPN if at all possible. Positive blood cultures from [facility] ([facility] and Maria Teresa at [facility]. Antibiotics per ID. May need tunneled femoral line for antibiotics if needed per ID. ID will let me know on saturday. Recent SVC syndrome and DVT. Need lovenox for at least 6 months and subsequently, if no additonal catheter required, can consider discontinuation. M SVT RUE, warm compress. Already on lovenox for DVT which will help SVT. Subjective Date of service: 07/19/18 Principal diagnosis: bacteremia Interval history: Has right cephalic vein SVT. No further venipuncture/IV/injection to RUE. No recurrent SVT. Some discomfort with expected erythema associated with cephalic vein SVT. Does not want to be back on TPN which I agree with. Objective - Constitutional Vitals: Vital Signs - 12hr 07/19/18 07/19/18 07/19/18 01:17 03:22 05:49 Temperature 97.9 F Pulse Rate 80 Respiratory 18 18 17 Rate Blood Pressure 107/71 O2 Sat by Pulse 97 95 Oximetry General appearance: Present: no acute distress - EENT Eyes: EOM intact ENT: hearing intact - Respiratory Respiratory effort: normal Extremities: abnormal (erythema along cephalic vein of RUE with some swelling) - Gastrointestinal General gastrointestinal: Present: soft - Psychiatric Psychiatric: appropriate mood/affect, cooperative - Labs CBC & Chem 7: 07/19/18 05:43 07/19/18 05:43 Labs: Abnormal lab results 07/18/18 07/19/18 Range/Units 21:51 05:43 WBC 3.5 L (4.5-11.0) K/mm3 RBC 2.87 L (3.65-5.03) M/mm3 Hgb 8.5 L (10.1-14.3) gm/dl Hct 25.7 L (30.3-42.9) % RDW 15.6 H (13.2-15.2) % Lymph % (Auto) 48.3 H (13.4-35.0) % [place] % (Auto) 12.8 H (0.0-7.3) % Seg Neutrophils % 38.7 L (40.0-70.0) % Seg Neutrophils # 1.3 L (1.8-7.7) K/mm3 POC Glucose 116 H (70-105) Medications & Allergies - Medications Allergies/Adverse Reactions: Allergies ketorolac [From Toradol] Allergy (Verified 06/07/18 16:06) Swelling metoclopramide [From Reglan] Allergy (Verified 06/07/18 16:06) Unknown Penicillins Allergy (Verified 06/07/18 16:06) Swelling prochlorperazine [From Compazine] Allergy (Verified 06/07/18 16:06) Unknown promethazine [From Phenergan] Allergy (Verified 06/07/18 16:06) Swelling tramadol Allergy (Verified 06/07/18 16:06) Swelling adhesive tape Adverse Reaction (Verified 06/07/18 16:06) Itching Apple Allergy (Uncoded 06/09/18 15:36) Swelling Sour cream Allergy (Uncoded 06/09/18 15:36) Swelling Whip cream Allergy (Uncoded 06/09/18 15:36) Swelling Home Medications: Home Medications Medication Instructions Recorded Confirmed Last Taken Type Ondansetron [Zofran ODT TAB] 4 mg PO Q4HR PRN 03/04/18 07/14/18 04/03/18 History 4mg HYDROcodone/APAP 5-325 [Schaller 1 each PO BID PRN #10 tablet 04/15/18 07/14/18 Unknown Rx 5-325 mg TAB] Enoxaparin [Lovenox] 80 mg SUB-Q Q12HR #30 syringe 06/14/18 07/14/18 Unknown Rx Acetaminophen/Codeine [Tylenol 1 tab PO Q6H PRN #12 tab 06/18/18 07/14/18 Unknown Rx /Codeine # 3 tab] Morphine Sulfate/0.9% NaCl/Pf 2 mg IV Q4H 07/14/18 07/14/18 Unknown History [Morphine 2 mg/ml-0.9% NaCl Syr] Active Medications: Generic Name Dose Route Start Last Admin Trade Name Freq PRN Reason Stop Dose Admin Acetaminophen 650 mg 07/15/18 00:43 Tylenol PO Q4H PRN Pain MILD(1-3)/Fever >100.5/GONZALEZ Lipase/Protease/Amylase 1 each 07/17/18 13:49 Ruddy Zazueta 10,500 Unit FEEDTUBE PRN PRN For Clogged Feeding Tube Lipase/Protease/Amylase 1 each 07/18/18 10:44 Ruddy Zazueta 10,500 Unit FEEDTUBE PRN PRN For Clogged Feeding Tube Dextrose 50 ml 07/15/18 00:44 D50w (25gm) Syringe IV PRN PRN Hypoglycemia Diphenhydramine HCl 25 mg 07/15/18 12:30 07/19/18 11:52 Benadryl IV 25 mg Q6H PRN Administration Itching Enoxaparin Sodium 80 mg 07/15/18 10:00 07/19/18 11:52 Lovenox SUB-Q 80 mg Q12HR HERI Administration Levofloxacin/Dextrose 750 mg in 150 mls @ 100 mls/hr 07/15/18 22:00 07/18/18 22:06 Levaquin 750mg/150ml IV 100 mls/hr QHS HERI Administration Protocol Fluconazole 200 mls @ 100 mls/hr 07/16/18 16:00 07/18/18 13:55 Diflucan IV 100 mls/hr Q24HR HERI Administration Protocol Vancomycin HCl 1 gm in 250 mls @ 166.667 mls/hr 07/18/18 18:00 07/19/18 03:13 Vancomycin/Ns 1 Gm/250 Ml IV 166.667 mls/hr Q8H HERI Administration Dextrose/Sodium Chloride 1,000 mls @ 75 mls/hr 07/18/18 22:00 D5ns IV DIRECT HERI Morphine Sulfate 2 mg 07/15/18 00:43 07/19/18 11:52 Morphine IV 2 mg Q4H PRN Administration Pain , Severe (7-10) Ondansetron HCl 4 mg 07/15/18 00:43 07/19/18 11:53 Zofran IV 4 mg Q4H PRN Administration Nausea And Vomiting Oxycodone/Acetaminophen 1 tab 07/16/18 18:02 07/19/18 06:51 Percocet 5/325 PO 1 tab Q6H PRN Administration Pain, Moderate (4-6) Simple Syrup 15 ml 07/17/18 13:49 Simple Syrup FEEDTUBE PRN PRN Hypoglycemia Simple Syrup 30 ml 07/17/18 13:49 Simple Syrup FEEDTUBE PRN PRN Hypoglycemia Simple Syrup 15 ml 07/18/18 10:44 Simple Syrup FEEDTUBE PRN PRN Hypoglycemia Simple Syrup 30 ml 07/18/18 10:44 Simple Syrup FEEDTUBE PRN PRN Hypoglycemia Sodium Bicarbonate 325 mg 07/17/18 13:49 Sodium Bicarbonate FEEDTUBE PRN PRN For Clogged Feeding Tube Sodium Bicarbonate 325 mg 07/18/18 10:44 Sodium Bicarbonate FEEDTUBE PRN PRN For Clogged Feeding Tube Sodium Chloride 10 ml 07/15/18 10:00 07/18/18 22:12 Sodium Chloride Flush Syringe 10 Ml IV 10 ml BID HERI Administration Sodium Chloride 10 ml 07/15/18 00:43 07/19/18 03:22 Sodium Chloride Flush Syringe 10 Ml IV 10 ml PRN PRN Administration LINE FLUSH
--- NOTE | 2018-07-19 14:46 | Vascular Lab Report ---
PROCEDURE: VL VENOUS DUPLEX UE RT TECHNIQUE: Duplex Doppler ultrasound of the right arm venous system HISTORY: RUE swelling and tenderness COMPARISONS: 01/23/2018 FINDINGS: Normal compressibility, vascular patency, and augmentation are present diffusely throughout the visua lized portion of the deep veins. No abnormal intraluminal echoes are visualized to suggest deep vein thrombus. Nonspecific abnormal intraluminal echoes are present in the superficial venous system, in the left ce phalic vein. This extends from the forearm level, into the antecubital fossa region, and to the level of the mid biceps. This may reflect superficial venous thrombosis and/or thrombophlebitis. Nonspecif ic ill-defined hypoechoic heterogeneous soft tissue in the mid forearm region. IMPRESSION: No sonographic evidence of right arm DVT Abnormal intraluminal echoes may reflect superficial venous thrombosis and/or thrombophlebitis from t he forearm to the mid biceps level This document is electronically signed by Suresh Nair MD., July 19 2018 02:44:22 PM ET
[2018-07-19] MEDS ORDERED: VANCOMYCIN/NS 1 GM/250 ML 1 GM/250 ML BAG IV SCH (19:30)
[2018-07-19] MEDS: LEVAQUIN 750MG/150ML 750 MG/150 ML BAG IV SCH (21:22)
[2018-07-19] MEDS: SODIUM CHLORIDE FLUSH SYRINGE 10 ML IV SCH (21:23)
[2018-07-19] MEDS: DIFLUCAN 200 ML IV SCH ×2 (21:25→23:01)
[2018-07-20] MEDS: VANCOMYCIN/NS 1 GM/250 ML 1 GM/250 ML BAG IV SCH ×3 (04:12→20:51)
[2018-07-20] MEDS: MORPHINE IV PRN ×4 (04:27→20:51)
[2018-07-20] MEDS: BENADRYL IV PRN ×3 (04:28→22:28)
[2018-07-20] MEDS: ZOFRAN IV PRN (08:48)
[2018-07-20] MEDS: DIFLUCAN 200 ML IV SCH (09:00)
[2018-07-20] MEDS: LOVENOX SUB-Q SCH ×2 (09:16→22:29)
[2018-07-20] MEDS: SODIUM CHLORIDE FLUSH SYRINGE 10 ML IV SCH ×2 (10:57→22:29)
--- NOTE | 2018-07-20 12:23 | Progress Note ---
Assessment and Plan - Patient Problems (1) Sepsis Current Visit: Yes Status: Acute Qualifiers: Plan to address problem: Patient blood cultures positive for Maria Teresa and gram-positive organism. Presently covered with IV antibiotics. Patient has received IV access to receive antibiotic coverage at this particular time. Currently on Levaquin and vancomycin. Patient's fever curve has come down. Leukocytosis has resolved. (2) Abdominal pain Current Visit: No Status: Acute Qualifiers: Abdominal location: upper abdomen, unspecified Qualified Code(s): R10.10 - Upper abdominal pain, unspecified Plan to address problem: Secondary to gastroparesis patient has some nausea no. Pain chronic treated with morphine. We'll continue this at this time. We'll see him Percocet appears to be enough at this time. Exam on patient physically area from afar and her pain appears to be relatively fairly well controlled. (3) DVT (deep venous thrombosis) Current Visit: No Status: Acute Qualifiers: DVT location: upper extremity Chronicity: acute Laterality: right Plan to address problem: Patient on Lovenox and will require Lovenox for 6 months. Patient with right cephalic vein SVT (4) History of diabetic gastroparesis Current Visit: No Status: Chronic Plan to address problem: History of gastroparesis chronically in by mouth. Ramirez's catheter has been discontinued. Plan is to discontinue TPN A continue treatment with J-tube feedings. (5) IDDM (insulin dependent diabetes mellitus) Current Visit: No Status: Chronic (6) Pneumonia Current Visit: Yes Status: Acute Plan to address problem: Patient currently being treated with vancomycin and Levaquin and fluconazole. Symptoms have resolved. The following were changed to by mouth when clinically indicated. History Interval history: Patient is extremely calm does not appear to be any severe pain. Some nausea but no vomiting. Patient states is tolerable. Would like to change morphine to Dilaudid. Pages that appear to be in pain at this particular time. Patient had IV restarted today Ramirez's catheter has been discontinued. Hospitalist Physical - Constitutional Vitals: Temp Pulse Resp BP Pulse Ox 98.5 F 71 18 136/75 96 07/20/18 06:09 07/20/18 06:09 07/20/18 06:09 07/20/18 06:09 07/20/18 06:09 General appearance: Present: no acute distress, well-nourished - EENT Eyes: Present: PERRL, EOM intact ENT: hearing intact, clear oral mucosa, dentition normal, no oropharyngeal erythema, no poor dentition, no thrush, no ulcerations - Neck Neck: Present: supple, normal ROM - Respiratory Respiratory effort: normal Respiratory: bilateral: CTA - Cardiovascular Rhythm: regular Heart Sounds: Present: S1 & S2 - Extremities Extremities: no ischemia, pulses intact, pulses symmetrical, No edema, normal temperature, normal color, Full ROM Extremity abnormal: edema Peripheral Pulses: within normal limits - Abdominal General gastrointestinal: soft, non-tender, other - Integumentary Integumentary: Present: clear (JH intact.), warm, dry - Psychiatric Psychiatric: appropriate mood/affect, intact judgment & insight, memory intact Results - Labs CBC & Chem 7: 07/19/18 05:43 07/19/18 05:43 Labs: Laboratory Last Values WBC 3.5 K/mm3 (4.5-11.0) L 07/19/18 05:43 RBC 2.87 M/mm3 (3.65-5.03) L 07/19/18 05:43 Hgb 8.5 gm/dl (10.1-14.3) L 07/19/18 05:43 Hct 25.7 % (30.3-42.9) L 07/19/18 05:43 MCV 90 fl (79-97) 07/19/18 05:43 MCH 30 pg (28-32) 07/19/18 05:43 MCHC 33 % (30-34) 07/19/18 05:43 RDW 15.6 % (13.2-15.2) H 07/19/18 05:43 Plt Count 248 K/mm3 (140-440) 07/19/18 05:43 Lymph % (Auto) 48.3 % (13.4-35.0) H 07/19/18 05:43 [place] % (Auto) 12.8 % (0.0-7.3) H 07/19/18 05:43 Eos % (Auto) 0.0 % (0.0-4.3) 07/19/18 05:43 Baso % (Auto) 0.2 % (0.0-1.8) 07/19/18 05:43 Lymph # 1.7 K/mm3 (1.2-5.4) 07/19/18 05:43 [place] # 0.4 K/mm3 (0.0-0.8) 07/19/18 05:43 Eos # 0.0 K/mm3 (0.0-0.4) 07/19/18 05:43 Baso # 0.0 K/mm3 (0.0-0.1) 07/19/18 05:43 Seg Neutrophils % 38.7 % (40.0-70.0) L 07/19/18 05:43 Seg Neutrophils # 1.3 K/mm3 (1.8-7.7) L 07/19/18 05:43 APTT 32.6 Sec. (24.2-36.6) 07/14/18 20:03 D-Dimer 719.58 ng/mlDDU (0-234) H 07/14/18 20:03 Sodium 139 mmol/L (137-145) 07/19/18 05:43 Potassium 3.9 mmol/L (3.6-5.0) 07/19/18 05:43 Chloride 103.9 mmol/L (98-107) 07/19/18 05:43 Carbon Dioxide 25 mmol/L (22-30) 07/19/18 05:43 Anion Gap 14 mmol/L 07/19/18 05:43 BUN 7 mg/dL (7-17) 07/19/18 05:43 Creatinine 0.7 mg/dL (0.7-1.2) 07/19/18 05:43 Estimated GFR > 60 ml/min 07/19/18 05:43 BUN/Creatinine Ratio 10 % 07/19/18 05:43 Glucose 86 mg/dL (65-100) 07/19/18 05:43 POC Glucose 89 (70-105) 07/20/18 06:13 Lactic Acid 1.80 mmol/L (0.7-2.0) 07/14/18 23:33 Calcium 8.4 mg/dL (8.4-10.2) 07/19/18 05:43 Phosphorus 3.30 mg/dL (2.5-4.5) 07/18/18 05:48 Magnesium 2.10 mg/dL (1.7-2.3) 07/18/18 05:48 Total Bilirubin 0.30 mg/dL (0.1-1.2) 07/14/18 20:03 AST 18 units/L (5-40) 07/14/18 20:03 ALT 29 units/L (7-56) 07/14/18 20:03 Alkaline Phosphatase 138 units/L (35-129) H 07/14/18 20:03 Total Protein 7.1 g/dL (6.3-8.2) 07/14/18 20:03 Albumin 3.4 g/dL (3.9-5) L 07/14/18 20:03 Albumin/Globulin Ratio 0.9 % 07/14/18 20:03 Urine Color Yellow (Yellow) 07/14/18 Unknown Urine Turbidity Clear (Clear) 07/14/18 Unknown Urine pH 5.0 (5.0-7.0) 07/14/18 Unknown Ur Specific [place] > 1.059 (1.003-1.030) H 07/14/18 Unknown Urine Protein <15 mg/dl mg/dL (Negative) 07/14/18 Unknown Urine Glucose (UA) Neg mg/dL (Negative) 07/14/18 Unknown Urine Ketones Neg mg/dL (Negative) 07/14/18 Unknown Urine Blood Mod (Negative) 07/14/18 Unknown Urine Nitrite Neg (Negative) 07/14/18 Unknown Urine Bilirubin Neg (Negative) 07/14/18 Unknown Urine Urobilinogen < 2.0 mg/dL (<2.0) 07/14/18 Unknown Ur Leukocyte Esterase Neg (Negative) 07/14/18 Unknown Urine WBC (Auto) 2.0 /HPF (0.0-6.0) 07/14/18 Unknown Urine RBC (Auto) 5.0 /HPF (0.0-6.0) 07/14/18 Unknown U Epithel Cells (Auto) 4.0 /HPF (0-13.0) 07/14/18 Unknown Urine Mucus Few /HPF 07/14/18 Unknown Vancomycin Trough 9.5 ug/mL (5.0-20.0) 07/18/18 05:48 Blood Type O POSITIVE 07/16/18 16:29 Antibody Screen Negative 07/16/18 16:29 Crossmatch See Detail 07/16/18 16:29 Active Medications - Current Medications Current Medications: Generic Name Dose Route Start Last Admin Trade Name Freq PRN Reason Stop Dose Admin Acetaminophen 650 mg 07/15/18 00:43 Tylenol PO Q4H PRN Pain MILD(1-3)/Fever >100.5/GONZALEZ Lipase/Protease/Amylase 1 each 07/17/18 13:49 Ruddy Zazutea 10,500 Unit FEEDTUBE PRN PRN For Clogged Feeding Tube Lipase/Protease/Amylase 1 each 07/18/18 10:44 Ruddy Zazueta 10,500 Unit FEEDTUBE PRN PRN For Clogged Feeding Tube Dextrose 50 ml 07/15/18 00:44 D50w (25gm) Syringe IV PRN PRN Hypoglycemia Diphenhydramine HCl 25 mg 07/15/18 12:30 07/20/18 10:56 Benadryl IV 25 mg Q6H PRN Administration Itching Enoxaparin Sodium 80 mg 07/15/18 10:00 07/20/18 09:16 Lovenox SUB-Q 80 mg Q12HR HERI Administration Levofloxacin/Dextrose 750 mg in 150 mls @ 100 mls/hr 07/15/18 22:00 07/19/18 21:22 Levaquin 750mg/150ml IV 100 mls/hr QHS HERI Administration Protocol Dextrose/Sodium Chloride 1,000 mls @ 75 mls/hr 07/18/18 22:00 D5ns IV DIRECT HERI Fluconazole 200 mls @ 100 mls/hr 07/19/18 21:00 07/20/18 09:00 Diflucan IV 100 mls/hr Q24HR HERI Administration Protocol Vancomycin HCl 1 gm in 250 mls @ 166.667 mls/hr 07/20/18 04:00 07/20/18 04:12 Vancomycin/Ns 1 Gm/250 Ml IV 166.667 mls/hr Q8H HERI Administration Morphine Sulfate 2 mg 07/15/18 00:43 07/20/18 08:47 Morphine IV 2 mg Q4H PRN Administration Pain , Severe (7-10) Ondansetron HCl 4 mg 07/15/18 00:43 07/20/18 08:48 Zofran IV 4 mg Q4H PRN Administration Nausea And Vomiting Oxycodone/Acetaminophen 1 tab 07/16/18 18:02 07/19/18 22:02 Percocet 5/325 PO 1 tab Q6H PRN Administration Pain, Moderate (4-6) Simple Syrup 15 ml 07/17/18 13:49 Simple Syrup FEEDTUBE PRN PRN Hypoglycemia Simple Syrup 30 ml 07/17/18 13:49 Simple Syrup FEEDTUBE PRN PRN Hypoglycemia Sodium Bicarbonate 325 mg 07/18/18 10:44 Sodium Bicarbonate FEEDTUBE PRN PRN For Clogged Feeding Tube Sodium Chloride 10 ml 07/15/18 10:00 07/20/18 10:57 Sodium Chloride Flush Syringe 10 Ml IV 10 ml BID HERI Administration Sodium Chloride 10 ml 07/15/18 00:43 07/19/18 03:22 Sodium Chloride Flush Syringe 10 Ml IV 10 ml PRN PRN Administration LINE FLUSH Nutrition/Malnutrition Assess - Dietary Evaluation Nutrition/Malnutrition Findings: Nutrition Notes Start: 07/15/18 09:51 Freq: Status: Active Protocol: Document 07/19/18 10:54 LP (Rec: 07/19/18 10:58 LP [id number]) Nutrition Notes Initial or Follow up Brief Note Current Diet Glucerna 1.2 at 20ml/hr Height 5 ft 8 in Weight 78.5 kg Bessie Body Weight (kg) 63.63 BMI 26.3 Subjective/Other Information Pt tolerating TF at 20ml/hr. Made pt aware that we would be increasing rate slowly. Percent of energy/protein needs met: 30%/48% Burn Absent Trauma Absent #1 Nutrition Diagnosis Inadequate oral intake Diagnosis Progress(for reassessment Continues documentation) Is patient on ventilator? No Is Patient Ambulatory and/or Out of Bed Yes REE-([facility]-ambulatory/OOB) [ 1935.050 [id number]] Calculation Used for Recommendations [facility] Additional Notes Protein Needs: 63-79g (0.8-1g/ kg) Fluid Needs: 1 ml/kcal Nutrition Intervention Change Diet Order: TF Nutrition Support: Increase Glucerna 1.2 to 25ml/ hr Flush 50ml q8h Kcal 720 Protein (gm) 36 Fluid (mL) 483 Follow-Up By: 07/20/18 Additional Comments Follow for TF tolerance/ increase TF
[2018-07-20] MEDS: PERCOCET 5/325 PO PRN (12:46)
[2018-07-20] MEDS: D5NS 1,000 ML IV SCH (12:46)
--- NOTE | 2018-07-20 12:48 | Progress Note ---
Assessment and Plan Cultures: Blood culture at [facility] Blood culture 07/14/2018 Maria Teresa albicans 2 of 4 bottles. Blood cuture 07/17/2018: no growth Assessment: 42 y/o female with history of diabetes mellitus type 2, severe gastroparesis of unclear etiology, initially had a port-A-cath for TPN s/p multiple IV accesses infection/bacteremia, J-tube (for t-feeds and meds) and G-tube (for stomach decompression?), well known to our ID service; admitted on 07/14/2018 due to a- week history of malaise, weakness, cough and intermittent fever: 1) Sepsis: Resolved. Present on admission, manifested by fever, tachycardia. Etiology most likely due to fungemia and bacteremia +/- pneumonia. 2) Maria Teresa Albicans Fungemia and GPC bacteremia: well known for multiple IV accesses infections. Blood culture 07/13/2018? at [facility] in clusters. Blood culture 07/14/2018 Maria Teresa albicans 2 of 4 bottles. Repeat blood culture shows no growth. S/p Ramirez removal and placement of a right femoral TLC on 07/16/2018. TTE shows no valvular vegetation. Awaiting Blood culture report from [facility] May need tunneled femoral line for antibiotics 3) Pneumonia: likely CAP. CXR showed no acute cardiopulmonary process. CTA chest No evidence of pulmonary embolus, aortic dissection, or vascular congestion. Patchy nodular infiltrates in both lower lobes, lingula and right middle lobe. No evidence of pleural effusion. 4) G-tube site infection ? cellulitis v/s localized fungal 5) Severe gastroparesis of unclear etiology: seen by GI at [place]. 6) History of multiple admissions due to CLABSI. -August 2017 for septic shock from port-A-cath infection due to Klebsiella bacteremia. Port-A-cath s/p removal on 09/04/17. She then developed a chest wall collection. S/p bedside I+D. Port site culture grew + Stenotrophomona maltophilia. Treated with Levaquin 750 mg IV qday for 2 weeks until 09/22/17 via a new PICC line to her right arm. -Re-admitted on 01/23/18 due to 2 day history of right arm PICC site swelling and redness associated with pain, no fever, blood cultures grew MSSA bacteremia, likely from PICC site infection/thrombus. PICC line was removed and a right Ramirez cath was placed. Treated with vancomycin 1 gm IV every 12 hours until 02/23/18. -Readmitted on 06/07/18 with nausea, vomiting, fevers and redness around her J tube and foul odor and swelling to her Ramirez site. Blood cultures 06/07/2018 grew Acinetobacter baumannii treated with Levofloxacin 750mg IV every 24 hours for total 7 days ending 06/19/18. Recommendations: - HOLD OFF on placing antoher central line until GI med agrees that is safe to continue t-feds alone and ok to stop TPN, also until [facility] blood cultures are back. Discussed with Dr Cole. - f/u final blood cultures from [facility] - may need tunneled femoral line for antibiotics - continue vancomycin and levaquin D6 - continue fluconazole D3 - f/u GI med consult [facility] M: [phone] O:[phone] Subjective Date of service: 07/20/18 Principal diagnosis: bacteremia Interval history: Patient seen and examined. Generalized weakness reported, no pain. no fevers. Nurses notes, labs and imaging reviewed, discussed with patient. Objective - Exam Narrative Exam: General appearance: Alert in NAD, conversant Eyes: anicteric sclerae, moist conjunctivae; no lid-lag; PERRLA HENT: Atraumatic; oropharynx clear with moist mucous membranes and no mucosal ulcerations/no oral thrush; normal hard and soft palate. Normal external ears. Neck: Trachea midline; supple, no thyromegaly or lymphadenopathy Lungs: CTA CV: RRR, no murmurs Abdomen: Soft, non-tender; +G-tube Extremities: No peripheral edema or extremity lymphadenopathy Skin: multiple tattoes and piercing Psych: Appropriate affect, alert and oriented to person, place and time. Neuro: alert and oriented x 3. Moving all extermities - Constitutional Vitals: Vital Signs Temp Pulse Resp BP Pulse Ox 98.5 F 71 18 136/75 96 07/20/18 06:09 07/20/18 06:09 07/20/18 06:09 07/20/18 06:09 07/20/18 06:09 Temperature -Last 24 Hours Temperature 98.5 F Temperature 98.5 F Temperature 98.5 F Temperature 99.5 F - Labs CBC & Chem 7: 07/19/18 05:43 07/19/18 05:43
--- NOTE | 2018-07-20 13:41 | Progress Note ---
Assessment and Plan 42 year old female with gastroparesis chronically with G-tube, J-tube, and Ramirez catheter. Ramirez catheter has been removed. Hopefully can avoid placing new Ramirez catheter if patient does not need TPN. Recommend discontinuation of TPN if at all possible. Positive blood cultures from [facility] ([facility] and [facility] Teresa at [facility]. Antibiotics per ID. May need tunneled femoral line for antibiotics if needed per ID. ID will let me know on saturday. Still awaiting BCx from [facility]. Will make patient NPO after MN except meds incase line still needed. Recent SVC syndrome and DVT. Need lovenox for at least 6 months and subsequently, if no additonal catheter required, can consider discontinuation. SVT RUE, warm compress. Already on lovenox for DVT which will help SVT. Subjective Date of service: 07/20/18 Principal diagnosis: bacteremia Interval history: Has right cephalic vein SVT. No further venipuncture/IV/injection to RUE. No recurrent SVT. Some discomfort with expected erythema associated with cephalic vein SVT. Improving. Still uncertain about BCx from [facility]. Discussed with Gloria Vidal. Objective - Constitutional Vitals: Vital Signs - 12hr 07/20/18 07/20/18 04:27 06:09 Temperature 98.5 F Pulse Rate 71 Respiratory 17 18 Rate Blood Pressure 136/75 O2 Sat by Pulse 96 Oximetry General appearance: Present: no acute distress - EENT Eyes: EOM intact ENT: hearing intact - Neck Neck: supple - Respiratory Respiratory effort: normal Extremities: abnormal (some erythema and edema RUE, cellulitis ; LUE has midline) - Psychiatric Psychiatric: appropriate mood/affect, cooperative - Labs CBC & Chem 7: 07/19/18 05:43 07/19/18 05:43 Medications & Allergies - Medications Allergies/Adverse Reactions: Allergies ketorolac [From Toradol] Allergy (Verified 06/07/18 16:06) Swelling metoclopramide [From Reglan] Allergy (Verified 06/07/18 16:06) Unknown Penicillins Allergy (Verified 06/07/18 16:06) Swelling prochlorperazine [From Compazine] Allergy (Verified 06/07/18 16:06) Unknown promethazine [From Phenergan] Allergy (Verified 06/07/18 16:06) Swelling tramadol Allergy (Verified 06/07/18 16:06) Swelling adhesive tape Adverse Reaction (Verified 06/07/18 16:06) Itching Apple Allergy (Uncoded 06/09/18 15:36) Swelling Sour cream Allergy (Uncoded 06/09/18 15:36) Swelling Whip cream Allergy (Uncoded 06/09/18 15:36) Swelling Home Medications: Home Medications Medication Instructions Recorded Confirmed Last Taken Type Ondansetron [Zofran ODT TAB] 4 mg PO Q4HR PRN 03/04/18 07/14/18 04/03/18 History 4mg HYDROcodone/APAP 5-325 [Tyler 1 each PO BID PRN #10 tablet 04/15/18 07/14/18 Unknown Rx 5-325 mg TAB] Enoxaparin [Lovenox] 80 mg SUB-Q Q12HR #30 syringe 06/14/18 07/14/18 Unknown Rx Acetaminophen/Codeine [Tylenol 1 tab PO Q6H PRN #12 tab 06/18/18 07/14/18 Unknown Rx /Codeine # 3 tab] Morphine Sulfate/0.9% NaCl/Pf 2 mg IV Q4H 07/14/18 07/14/18 Unknown History [Morphine 2 mg/ml-0.9% NaCl Syr] Active Medications: Generic Name Dose Route Start Last Admin Trade Name Freq PRN Reason Stop Dose Admin Acetaminophen 650 mg 07/15/18 00:43 Tylenol PO Q4H PRN Pain MILD(1-3)/Fever >100.5/GONZALEZ Lipase/Protease/Amylase 1 each 07/17/18 13:49 Ruddy Zazueta 10,500 Unit FEEDTUBE PRN PRN For Clogged Feeding Tube Lipase/Protease/Amylase 1 each 07/18/18 10:44 Ruddy Zazueta 10,500 Unit FEEDTUBE PRN PRN For Clogged Feeding Tube Dextrose 50 ml 07/15/18 00:44 D50w (25gm) Syringe IV PRN PRN Hypoglycemia Diphenhydramine HCl 25 mg 07/15/18 12:30 07/20/18 10:56 Benadryl IV 25 mg Q6H PRN Administration Itching Enoxaparin Sodium 80 mg 07/15/18 10:00 07/20/18 09:16 Lovenox SUB-Q 80 mg Q12HR HERI Administration Levofloxacin/Dextrose 750 mg in 150 mls @ 100 mls/hr 07/15/18 22:00 07/19/18 21:22 Levaquin 750mg/150ml IV 100 mls/hr QHS HERI Administration Protocol Dextrose/Sodium Chloride 1,000 mls @ 75 mls/hr 07/18/18 22:00 07/20/18 12:46 D5ns IV 75 mls/hr DIRECT HERI Administration Fluconazole 200 mls @ 100 mls/hr 07/19/18 21:00 07/20/18 09:00 Diflucan IV 100 mls/hr Q24HR HERI Administration Protocol Vancomycin HCl 1 gm in 250 mls @ 166.667 mls/hr 07/20/18 04:00 07/20/18 04:12 Vancomycin/Ns 1 Gm/250 Ml IV 166.667 mls/hr Q8H HERI Administration Morphine Sulfate 2 mg 07/15/18 00:43 07/20/18 08:47 Morphine IV 2 mg Q4H PRN Administration Pain , Severe (7-10) Ondansetron HCl 4 mg 07/15/18 00:43 07/20/18 08:48 Zofran IV 4 mg Q4H PRN Administration Nausea And Vomiting Oxycodone/Acetaminophen 1 tab 07/16/18 18:02 07/20/18 12:46 Percocet 5/325 PO 1 tab Q6H PRN Administration Pain, Moderate (4-6) Simple Syrup 15 ml 07/17/18 13:49 Simple Syrup FEEDTUBE PRN PRN Hypoglycemia Simple Syrup 30 ml 07/17/18 13:49 Simple Syrup FEEDTUBE PRN PRN Hypoglycemia Sodium Bicarbonate 325 mg 07/18/18 10:44 Sodium Bicarbonate FEEDTUBE PRN PRN For Clogged Feeding Tube Sodium Chloride 10 ml 07/15/18 10:00 07/20/18 10:57 Sodium Chloride Flush Syringe 10 Ml IV 10 ml BID HERI Administration Sodium Chloride 10 ml 07/15/18 00:43 07/19/18 03:22 Sodium Chloride Flush Syringe 10 Ml IV 10 ml PRN PRN Administration LINE FLUSH
[2018-07-20] MEDS: LEVAQUIN 750MG/150ML 750 MG/150 ML BAG IV SCH (22:48)
[2018-07-21] MEDS: VANCOMYCIN/NS 1 GM/250 ML 1 GM/250 ML BAG IV SCH ×2 (03:29→14:31)
[2018-07-21] MEDS: MORPHINE IV PRN ×2 (03:29→10:41)
[2018-07-21] MEDS: D5NS 1,000 ML IV SCH ×2 (03:34→10:40)
[2018-07-21] MEDS: BENADRYL IV PRN ×3 (06:35→21:27)
--- NOTE | 2018-07-21 09:57 | Progress Note ---
Assessment and Plan Cultures: Blood culture at [facility] grew Staph hominas, 2 bottles, Staph epidermis 1 bottle and [facility] parapsilosis 1 bottle Blood culture 07/14/2018 [facility] albicans 2 of 4 bottles. Blood cuture 07/17/2018: no growth Assessment: 42 y/o female with history of diabetes mellitus type 2, severe gastroparesis of unclear etiology, initially had a port-A-cath for TPN s/p multiple IV accesses infection/bacteremia, J-tube (for t-feeds and meds) and G-tube (for stomach decompression?), well known to our ID service; admitted on 07/14/2018 due to a- week history of malaise, weakness, cough and intermittent fever: 1) Sepsis: Resolved. Present on admission, manifested by fever, tachycardia. Etiology most likely due to fungemia and bacteremia +/- pneumonia. 2) [facility] Teresa Albicans Fungemia and GPC bacteremia: well known for multiple IV accesses infections. Blood culture 07/13/2018? at [facility] in clusters. Blood culture 07/14/2018 [facility] albicans 2 of 4 bottles. Repeat blood culture shows no growth. S/p Ramirez removal and placement of a right femoral TLC on 07/16/2018. TTE shows no valvular vegetation. Blood culture report from [facility] grew Staph hominas 2 bottles, Staph epidermis 1 bottle and [facility] parapsilosis 1 bottle . Will treat with fluconazole 400 mg PO q day for total 14 days ending 07/31/18. 3) Pneumonia: likely CAP. CXR showed no acute cardiopulmonary process. CTA chest No evidence of pulmonary embolus, aortic dissection, or vascular congestion. Patchy nodular infiltrates in both lower lobes, lingula and right middle lobe. No evidence of pleural effusion. 4) G-tube site infection ? cellulitis v/s localized fungal 5) Severe gastroparesis of unclear etiology: seen by GI at [place].. GI consult at [facility] today, Will d/c home with tube feedings, no TPN needed. 6) History of multiple admissions due to CLABSI. -August 2017 for septic shock from port-A-cath infection due to Klebsiella bacteremia. Port-A-cath s/p removal on 09/04/17. She then developed a chest wall collection. S/p bedside I+D. Port site culture grew + Stenotrophomona maltophi miquel. Treated with Levaquin 750 mg IV qday for 2 weeks until 09/22/17 via a new PICC line to her right arm. -Re-admitted on 01/23/18 due to 2 day history of right arm PICC site swelling and redness associated with pain, no fever, blood cultures grew MSSA bacteremia, likely from PICC site infection/thrombus. PICC line was removed and a right Ramirez cath was placed. Treated with vancomycin 1 gm IV every 12 hours until 02/23/18. -Readmitted on 06/07/18 with nausea, vomiting, fevers and redness around her J tube and foul odor and swelling to her Ramirez site. Blood cultures 06/07/2018 grew Acinetobacter baumannii treated with Levofloxacin 750mg IV every 24 hours for total 7 days ending 06/19/18. Recommendations: - Final blood cultures from [facility] reviewed no need for tunneled femoral line, will send home on oral antibiotics. -Anticipate discharge on Fluconazole 400mg PO every 24 hours for total 14 days ending 07/31/18 - continue vancomycin and levaquin D7 - continue fluconazole D4 -Follow up ID clinic in 4 weeks to repeat blood cultures. Gloria Vidal NP [facility] M: [phone] O:[phone] Subjective Date of service: 07/21/18 Principal diagnosis: bacteremia Interval history: Patient seen and examined. Generalized weakness reported, no pain. no fevers. Stated that she wanted to leave the hospital AMA. Discussed the need for GI consult to assess discontinuance of TPN. Verbalized understanding. Objective - Exam Narrative Exam: General appearance: Alert in NAD, conversant Eyes: anicteric sclerae, moist conjunctivae; no lid-lag; PERRLA HENT: Atraumatic; oropharynx clear with moist mucous membranes and no mucosal ulcerations/no oral thrush; normal hard and soft palate. Normal external ears. Neck: Trachea midline; supple, no thyromegaly or lymphadenopathy Lungs: CTA CV: RRR, no murmurs Abdomen: Soft, non-tender; +G-tube Extremities: No peripheral edema or extremity lymphadenopathy Skin: multiple tattoes and piercing Psych: Appropriate affect, alert and oriented to person, place and time. Neuro: alert and oriented x 3. Moving all extermities - Constitutional Vitals: Vital Signs Temp Pulse Resp BP Pulse Ox 98.3 F 67 20 149/76 97 07/21/18 06:42 07/21/18 06:42 07/21/18 06:42 07/21/18 06:42 07/21/18 06:42 Temperature -Last 24 Hours Temperature 98.3 F Temperature 98.1 F Temperature 97.7 F Temperature 99.7 F - Labs CBC & Chem 7: 07/19/18 05:43 07/19/18 05:43 Labs: Abnormal lab results 07/20/18 Range/Units 17:40 POC Glucose 146 H (70-105)
[2018-07-21] MEDS: LOVENOX SUB-Q SCH ×3 (10:40→21:20)
[2018-07-21] MEDS: ZOFRAN IV PRN (10:41)
--- NOTE | 2018-07-21 12:44 | Progress Note ---
Assessment and Plan Community-acquired pneumonia Bacteremia with sepsis - Positive blood cultures from [facility] (G+ cocci) and [facility] at [facility] Diabetes complicated by gastroparesis h/o DVT on AC Plan cont IV fluid, continue IV Levaquin, vancomycin, fluconazole Follow blood cultures, 2d echo cont to Check fingersticks, consulted dietary for TF, will hold TPN for now Patient on full dose Lovenox for DVT, as needed percocet Vascular consulted to see the patient - s/p removal of catheter with temporary peripheral parenteral nutrition and right frmoral TLC placement. BUt again removed TLC as blood Cx growing Yeast Noted medical records from [facility] brief history: 42-year-old woman with a history of diabetes mellitus type 2, severe gastroparesis of unclear etiology, initially had a port-A-cath for TPN s/p mult iple IV accesses infection/bacteremia, J-tube (for t-feeds and meds) and G-tube (for stomach decompression?), catheter related DVT and recent catheter removal and placement with SVC angioplasty and thrombectomy , was sent to the emergency room by Dr Ghosh for evaluation of bacteremia. Patient stated that last Saturday she had nausea and vomiting and diarrhea. Her diarrhea resolved but the fever was persistent, she was seen in the emergency room at [facility], blood cultures were done, they called her to say that her blood cultures have been positive. Blood cx at [facility] growing yeast. Plan to stop TPN for now and cont TF. Subjective Date of service: 07/21/18 Principal diagnosis: bacteremia Interval history: patient seen and examined denies chest pain, afebrile tolerating TF @25ml/h Objective - Exam Narrative Exam: General appearance: Present: no acute distress, well-nourished - EENT Eyes: PERRL, EOM intact ENT: hearing intact, clear oral mucosa Ears: bilateral: normal - Neck Neck: supple, normal ROM - Respiratory Respiratory effort: normal Respiratory: bilateral: CTA - Cardiovascular Rhythm: regular Heart Sounds: Present: S1 & S2. Absent: gallop, rub Extremities: pulses intact, No edema, normal color, Full ROM - Gastrointestinal General gastrointestinal: Present: soft, non-tender, non-distended, normal bowel sounds - Integumentary Integumentary: clear, warm, dry - Musculoskeletal Musculoskeletal: 1, strength equal bilaterally - Neurologic Neurologic: moves all extremities - Psychiatric Psychiatric: memory intact, appropriate mood/affect, intact judgment & insight - Constitutional Vitals: Vital Signs - 12hr 07/21/18 07/21/18 07/21/18 03:29 03:59 06:42 Temperature 98.3 F Pulse Rate 67 Respiratory 17 17 20 Rate Blood Pressure 149/76 O2 Sat by Pulse 97 Oximetry - Labs CBC & Chem 7: 07/19/18 05:43 07/19/18 05:43 Labs: Abnormal lab results 07/20/18 07/21/18 Range/Units 17:40 11:04 POC Glucose 146 H (70-105) Vancomycin Trough 23.4 H (5.0-20.0) ug/mL
[2018-07-21] MEDS ORDERED: DIFLUCAN 200 ML IV SCH (14:00)
--- NOTE | 2018-07-21 14:06 | Gastroenterology Consultation ---
<MORELIA RAMIREZ - Last Filed: 07/21/18 17:23> History of Present Illness - Reason for Consult Consult date: 07/21/18 gastroparesis, evaluation of need for TPN Requesting physician: ERENDIRA HUTSON - History of Present Illness Patient is a 42 y/o female with PMH of DM and severe gastroparesis who was admitted with sepsis 2/2 bacteremia/fungemia likely for IV access (s/p removal of Ramirez catheter; on antibiotics). ID following. Patient is s/p multiple IV accesses infections (see ID note). GI has been consulted for evaluation of necessity for TPN (okay to d/c? per ID). Patient is previously known to our service and followed by Dr. Mckinney. She was dx with gastroparesis after a pill cam showed delayed stomach emptying with associated symptoms of abd pain and N/V unimproved with medical management, and ultimately underwent G-tube and J-tube placement for feedings and was placed on TPN for wt loss. She was last seen by our group on 04/14/18 for a G-tube replacement (s/p EGD with PEG replacement by Dr. Medeiros). Since that time she had the PEG replaced by IR with [facility] in [place] per pt report. This afternoon patient was resting in bed w/o acute distress. Requesting to go home. Currently w/o GI complaints such as abd pain or N/V. Weight has been stable per pt report. Currently tolerating TFs via J-tube. G-tube mainly used for stomach decompression per pt. Upon exam, abdomen is benign with G-tube and J-tube site w/o s/s of infection or bleeding. Past History Past Medical History: diabetes, DVT, other (gastroparesis, TPN) Past Surgical History: Other (G tube, J tube, TPN catheter) Social history: no significant social history Family history: no significant family history Medications and Allergies Allergies Allergy/AdvReac Type Severity Reaction Status Date / Time ketorolac [From Toradol] Allergy Swelling Verified 06/07/18 16:06 metoclopramide [From Reglan] Allergy Unknown Verified 06/07/18 16:06 Penicillins Allergy Swelling Verified 06/07/18 16:06 prochlorperazine Allergy Unknown Verified 06/07/18 16:06 [From Compazine] promethazine [From Phenergan] Allergy Swelling Verified 06/07/18 16:06 tramadol Allergy Swelling Verified 06/07/18 16:06 adhesive tape AdvReac Itching Verified 06/07/18 16:06 Apple Allergy Swelling Uncoded 06/09/18 15:36 Sour cream Allergy Swelling Uncoded 06/09/18 15:36 Whip cream Allergy Swelling Uncoded 06/09/18 15:36 Home Medications Medication Instructions Recorded Confirmed Last Taken Type Ondansetron [Zofran ODT TAB] 4 mg PO Q4HR PRN 03/04/18 07/14/18 04/03/18 History 4mg HYDROcodone/APAP 5-325 [[place] 1 each PO BID PRN #10 tablet 04/15/18 07/14/18 Unknown Rx 5-325 mg TAB] Enoxaparin [Lovenox] 80 mg SUB-Q Q12HR #30 syringe 06/14/18 07/14/18 Unknown Rx Fluconazole [Diflucan TAB] 100 mg PO QDAY #14 tablet 07/22/18 Unknown Rx Active Meds: Active Medications Acetaminophen (Tylenol) 650 mg PO Q4H PRN PRN Reason: Pain MILD(1-3)/Fever >100.5/GONZALEZ Lipase/Protease/Amylase (Pancreazalethea Zazueta 10,500 Unit) 1 each FEEDTUBE PRN PRN PRN Reason: For Clogged Feeding Tube Lipase/Protease/Amylase (Pancrecristobal Zazueta 10,500 Unit) 1 each FEEDTUBE PRN PRN PRN Reason: For Clogged Feeding Tube Dextrose (D50w (25gm) Syringe) 50 ml IV PRN PRN PRN Reason: Hypoglycemia Diphenhydramine HCl (Benadryl) 25 mg IV Q6H PRN PRN Reason: Itching Last Admin: 07/21/18 06:35 Dose: 25 mg Documented by: Enoxaparin Sodium (Lovenox) 80 mg SUB-Q Q12HR HERI Last Admin: 07/21/18 10:40 Dose: Not Given Documented by: Levofloxacin/Dextrose (Levaquin 750mg/150ml) 750 mg in 150 mls @ 100 mls/hr IV QHS HERI; Protocol Last Admin: 07/20/18 22:48 Dose: 100 mls/hr Documented by: Dextrose/Sodium Chloride (D5ns) 1,000 mls @ 75 mls/hr IV DIRECT [facility] Last Admin: 07/21/18 10:40 Dose: 75 mls/hr Documented by: Fluconazole (Diflucan) 200 mls @ 100 mls/hr IV QDAY [facility] Ondansetron HCl (Zofran) 4 mg IV Q4H PRN PRN Reason: Nausea And Vomiting Last Admin: 07/21/18 10:41 Dose: 4 mg Documented by: Oxycodone/Acetaminophen (Percocet 5/325) 1 tab PO Q6H PRN PRN Reason: Pain, Moderate (4-6) Last Admin: 07/20/18 12:46 Dose: 1 tab Documented by: Simple Syrup (Simple Syrup) 15 ml FEEDTUBE PRN PRN PRN Reason: Hypoglycemia Simple Syrup (Simple Syrup) 30 ml FEEDTUBE PRN PRN PRN Reason: Hypoglycemia Sodium Bicarbonate (Sodium Bicarbonate) 325 mg FEEDTUBE PRN PRN PRN Reason: For Clogged Feeding Tube Sodium Chloride (Sodium Chloride Flush Syringe 10 Ml) 10 ml IV BID [facility] Last Admin: 07/20/18 22:29 Dose: 10 ml Documented by: Sodium Chloride (Sodium Chloride Flush Syringe 10 Ml) 10 ml IV PRN PRN PRN Reason: LINE FLUSH Last Admin: 07/19/18 03:22 Dose: 10 ml Documented by: medications reviewed/updated as required Review of Systems - Review of Systems All systems: negative Gastrointestinal: no abdominal pain, no nausea, no vomiting Exam - Constitutional Vital Signs: Temp Pulse Resp BP Pulse Ox 98.4 F 68 16 149/80 97 07/21/18 11:43 07/21/18 11:43 07/21/18 11:43 07/21/18 11:43 07/21/18 11:43 General appearance: no acute distress - Respiratory Respiratory: bilateral: diminished - Cardiovascular Rhythm: regular - Gastrointestinal General gastrointestinal: Present: soft, non-distended, normal bowel sounds, other (+G-tube, +J-tube) - Neurologic Neurological: alert and oriented x3 - Labs CBC & Chem 7: 07/19/18 05:43 07/19/18 05:43 Lab Results: Laboratory Results - last 24 hr 07/20/18 07/21/18 07/21/18 17:40 00:18 07:04 POC Glucose 146 H 89 83 Vancomycin Trough 07/21/18 07/21/18 07/21/18 07:32 11:04 11:47 POC Glucose 78 97 Vancomycin Trough 23.4 H Assessment and Plan 1.evaluation for necessity of TPN (okay to d/c?) 2.H/o severe gastroparesis 3.sepsis 2/2 fungemia and bacteremia +/- pneumonia (s/p multiple IV accesses infections; see ID notes)- ID following -patient is a 42 y/o female with PMH of DM and severe gastroparesis (followed by Dr. Mckinney; dx after pill cam showed delayed stomach emptying) with associated symptoms uncontrolled with medical management in the past requiring s/p G-tube placement (mainly used for stomach decompression), J-tube placement for feedings, and TPN for wt loss. -clinically, patient is currently w/o GI complaints such as abd pain or N/V. W eight stable per pt report. Currently tolerating TFs via J-tube w/o difficulty. -agree with ID/IR for discontinuation of TPN with recommends for continued enteral feedings for this is the optimal method of nutrition with TPN being unnecessary as long as nutrition/volume can be met with J-tube feedings. -recommendations for TFs per nutrition -as to regard of gastroparesis, recommend further management as outpatient (may benefit from other interventions such as botox injection of pylori vs medical management with Marinol vs referral to gastroparesis specialist) -patient okay to be d/c per GI standpoint with f/u in clinic upon discharge -will sign off, please call if needed <DANI PANDEY R - Last Filed: 07/22/18 14:32> Medications and Allergies Active Meds: Active Medications Acetaminophen (Tylenol) 650 mg PO Q4H PRN PRN Reason: Pain MILD(1-3)/Fever >100.5/GONZALEZ Lipase/Protease/Amylase (Ruddy Zazueta 10,500 Unit) 1 each FEEDTUBE PRN PRN PRN Reason: For Clogged Feeding Tube Dextrose (D50w (25gm) Syringe) 50 ml IV PRN PRN PRN Reason: Hypoglycemia Diphenhydramine HCl (Benadryl) 25 mg IV Q6H PRN PRN Reason: Itching Last Admin: 07/22/18 10:12 Dose: 25 mg Documented by: Enoxaparin Sodium (Lovenox) 80 mg SUB-Q Q12HR [facility] Last Admin: 07/22/18 10:12 Dose: 80 mg Documented by: Fluconazole (Diflucan) 400 mg PO QDAY [facility] Stop: 07/31/18 10:01 Last Admin: 07/22/18 10:12 Dose: 400 mg Documented by: Dextrose/Sodium Chloride (D5ns) 1,000 mls @ 75 mls/hr IV DIRECT [facility] Last Admin: 07/22/18 00:31 Dose: 75 mls/hr Documented by: Ondansetron HCl (Zofran) 4 mg IV Q4H PRN PRN Reason: Nausea And Vomiting Last Admin: 07/21/18 10:41 Dose: 4 mg Documented by: Oxycodone/Acetaminophen (Percocet 5/325) 1 tab PO Q6H PRN PRN Reason: Pain, Moderate (4-6) Last Admin: 07/22/18 10:13 Dose: 1 tab Documented by: Simple Syrup (Simple Syrup) 15 ml FEEDTUBE PRN PRN PRN Reason: Hypoglycemia Simple Syrup (Simple Syrup) 30 ml FEEDTUBE PRN PRN PRN Reason: Hypoglycemia Sodium Bicarbonate (Sodium Bicarbonate) 325 mg FEEDTUBE PRN PRN PRN Reason: For Clogged Feeding Tube Sodium Chloride (Sodium Chloride Flush Syringe 10 Ml) 10 ml IV BID [facility] Last Admin: 07/22/18 10:13 Dose: 10 ml Documented by: Sodium Chloride (Sodium Chloride Flush Syringe 10 Ml) 10 ml IV PRN PRN PRN Reason: LINE FLUSH Last Admin: 07/19/18 03:22 Dose: 10 ml Documented by: Exam - Constitutional Vital Signs: Temp Pulse Resp BP Pulse Ox 98.4 F 63 20 155/75 98 07/22/18 05:45 07/22/18 05:45 07/22/18 05:45 07/22/18 05:45 07/22/18 05:45 - Labs CBC & Chem 7: 07/19/18 05:43 07/19/18 05:43 Lab Results: Laboratory Results - last 24 hr 07/21/18 07/21/18 07/22/18 17:03 23:40 05:52 POC Glucose 85 108 H 91 Assessment and Plan Pt seen and evaluated. Lengthy discussion. Since can tolerate jejunal tube feeds, there is no need for TPN. As regards gastroparesis symptoms, further management as outlined above. Will sign off. Thanks.
[2018-07-21] MEDS: PERCOCET 5/325 PO PRN ×2 (14:29→21:20)
[2018-07-21] MEDS: SODIUM CHLORIDE FLUSH SYRINGE 10 ML IV SCH ×2 (14:37→21:21)
--- NOTE | 2018-07-21 17:02 | Progress Note ---
Assessment and Plan 42 year old female with gastroparesis chronically with G-tube, J-tube, and Ramirez catheter. No need for further TPN. Do not recommend additional catheters. Fungemia and G+ contaminant. No need for additional lines per ID. Recent SVC syndrome and DVT. Need lovenox for at least 6 months with followup in 2 weeks. SVT RUE, warm compress. Already on lovenox for DVT which will help SVT. 3 IR/vascular signing off. Subjective Date of service: 07/21/18 Principal diagnosis: bacteremia Interval history: Has right cephalic vein SVT. No further venipuncture/IV/injection to RUE. No recurrent SVT. Some discomfort with expected erythema associated with cephalic vein SVT. Improving. Objective - Constitutional Vitals: Vital Signs - 12hr 07/21/18 07/21/18 06:42 11:43 Temperature 98.3 F 98.4 F Pulse Rate 67 68 Respiratory 20 16 Rate Blood Pressure 149/76 149/80 O2 Sat by Pulse 97 97 Oximetry General appearance: Present: no acute distress - EENT Eyes: EOM intact ENT: hearing intact - Neck Neck: other (no swelling) - Respiratory Respiratory effort: normal - Labs CBC & Chem 7: 07/19/18 05:43 07/19/18 05:43 Labs: Abnormal lab results 07/20/18 07/21/18 Range/Units 17:40 11:04 POC Glucose 146 H (70-105) Vancomycin Trough 23.4 H (5.0-20.0) ug/mL Medications & Allergies - Medications Allergies/Adverse Reactions: Allergies ketorolac [From Toradol] Allergy (Verified 06/07/18 16:06) Swelling metoclopramide [From Reglan] Allergy (Verified 06/07/18 16:06) Unknown Penicillins Allergy (Verified 06/07/18 16:06) Swelling prochlorperazine [From Compazine] Allergy (Verified 06/07/18 16:06) Unknown promethazine [From Phenergan] Allergy (Verified 06/07/18 16:06) Swelling tramadol Allergy (Verified 06/07/18 16:06) Swelling adhesive tape Adverse Reaction (Verified 06/07/18 16:06) Itching Apple Allergy (Uncoded 06/09/18 15:36) Swelling Sour cream Allergy (Uncoded 06/09/18 15:36) Swelling Whip cream Allergy (Uncoded 06/09/18 15:36) Swelling Home Medications: Home Medications Medication Instructions Recorded Confirmed Last Taken Type Ondansetron [Zofran ODT TAB] 4 mg PO Q4HR PRN 03/04/18 07/14/18 04/03/18 History 4mg HYDROcodone/APAP 5-325 [[place] 1 each PO BID PRN #10 tablet 04/15/18 07/14/18 Unknown Rx 5-325 mg TAB] Enoxaparin [Lovenox] 80 mg SUB-Q Q12HR #30 syringe 06/14/18 07/14/18 Unknown Rx Acetaminophen/Codeine [Tylenol 1 tab PO Q6H PRN #12 tab 06/18/18 07/14/18 Unknown Rx /Codeine # 3 tab] Morphine Sulfate/0.9% NaCl/Pf 2 mg IV Q4H 07/14/18 07/14/18 Unknown History [Morphine 2 mg/ml-0.9% NaCl Syr] Active Medications: Generic Name Dose Route Start Last Admin Trade Name Freq PRN Reason Stop Dose Admin Acetaminophen 650 mg 07/15/18 00:43 Tylenol PO Q4H PRN Pain MILD(1-3)/Fever >100.5/GONZALEZ Lipase/Protease/Amylase 1 each 07/17/18 13:49 Ruddy Zazueta 10,500 Unit FEEDTUBE PRN PRN For Clogged Feeding Tube Lipase/Protease/Amylase 1 each 07/18/18 10:44 Ruddy Zazueta 10,500 Unit FEEDTUBE PRN PRN For Clogged Feeding Tube Dextrose 50 ml 07/15/18 00:44 D50w (25gm) Syringe IV PRN PRN Hypoglycemia Diphenhydramine HCl 25 mg 07/15/18 12:30 07/21/18 14:29 Benadryl IV 25 mg Q6H PRN Administration Itching Enoxaparin Sodium 80 mg 07/15/18 10:00 07/21/18 14:30 Lovenox SUB-Q 80 mg Q12HR HERI Administration Levofloxacin/Dextrose 750 mg in 150 mls @ 100 mls/hr 07/15/18 22:00 07/20/18 22:48 Levaquin 750mg/150ml IV 100 mls/hr QHS HERI Administration Protocol Dextrose/Sodium Chloride 1,000 mls @ 75 mls/hr 07/18/18 22:00 07/21/18 10:40 D5ns IV 75 mls/hr DIRECT HERI Administration Fluconazole 200 mls @ 100 mls/hr 07/21/18 14:00 Diflucan IV QDAY HERI Vancomycin HCl 1 gm in 250 mls @ 167.007 mls/hr 07/21/18 18:00 Vancomycin/Ns 1 Gm/250 Ml IV Q12H HERI Ondansetron HCl 4 mg 07/15/18 00:43 07/21/18 10:41 Zofran IV 4 mg Q4H PRN Administration Nausea And Vomiting Oxycodone/Acetaminophen 1 tab 07/16/18 18:02 07/21/18 14:29 Percocet 5/325 PO 1 tab Q6H PRN Administration Pain, Moderate (4-6) Simple Syrup 15 ml 07/17/18 13:49 Simple Syrup FEEDTUBE PRN PRN Hypoglycemia Simple Syrup 30 ml 07/17/18 13:49 Simple Syrup FEEDTUBE PRN PRN Hypoglycemia Sodium Bicarbonate 325 mg 07/18/18 10:44 Sodium Bicarbonate FEEDTUBE PRN PRN For Clogged Feeding Tube Sodium Chloride 10 ml 07/15/18 10:00 07/21/18 14:37 Sodium Chloride Flush Syringe 10 Ml IV 10 ml BID HERI Administration Sodium Chloride 10 ml 07/15/18 00:43 07/19/18 03:22 Sodium Chloride Flush Syringe 10 Ml IV 10 ml PRN PRN Administration LINE FLUSH
[2018-07-21] MEDS ORDERED: VANCOMYCIN/NS 1 GM/250 ML 1 GM/250 ML BAG IV SCH (18:00)
[2018-07-22] MEDS: D5NS 1,000 ML IV SCH (00:31)
[2018-07-22 07:03] VITALS: BP 155/75
[2018-07-22] MEDS ORDERED: DIFLUCAN PO SCH (10:00)
[2018-07-22] MEDS: BENADRYL IV PRN ×2 (10:12→16:11)
[2018-07-22] MEDS: LOVENOX SUB-Q SCH (10:12)
[2018-07-22] MEDS: PERCOCET 5/325 PO PRN ×2 (10:13→16:12)
[2018-07-22] MEDS: SODIUM CHLORIDE FLUSH SYRINGE 10 ML IV SCH (10:13)
--- NOTE | 2018-07-22 11:53 | Discharge Summary ---
Providers - Providers Date of Admission: 07/14/18 23:29 Date of discharge: 07/22/18 Attending physician: MARVIN RODRIGEZ 07/14/18 21:46 Consult to Physician [CONS] Stat Comment: Dr. Ramires spoke with Dr. Soto @ [phone] Consulting Provider: MAURICIO SOTO Physician Instructions: Reason For Exam: bacteremia with Ramirez catheter in place. 07/15/18 00:45 Consult to Dietitian/Nutrition [CONS] Routine Physician Instructions: Reason For Exam: Reason for Consult: Patient on ventilator Reason for Consult: Write/Manage TPN/PPN 07/15/18 04:09 Consult to Dietitian/Nutrition [CONS] Routine Physician Instructions: Reason For Exam: Reason for Consult: Write/Manage TPN/PPN 07/16/18 08:00 Consult to Physician [CONS] Routine Comment: Consulting Provider: JEFFERSON MCCOY Physician Instructions: Reason For Exam: bacteremia, pt known to us 07/16/18 12:29 Consult to Physician [CONS] Routine Comment: Consulting Provider: JEFFERSON MCCOY Physician Instructions: Reason For Exam: bacteremia 07/17/18 13:49 Consult to Dietitian/Nutrition [CONS] Routine Physician Instructions: Reason For Exam: Reason for Consult: Write/Manage Tube Feeding Consult to Dietitian/Nutrition [CONS] Routine Physician Instructions: Assess nutrtn needs, initiate, modify, manage TF Reason For Exam: Reason for Consult: Write/Manage Tube Feeding Reason for Consult: Write/Manage Tube Feeding 07/19/18 16:24 Midline [Consult to PICC Line RN] [CONS] Routine Reason For Exam: Unable to obtain peripheral line. Type Line:: Midline 07/21/18 10:03 Consult to Physician [CONS] Routine Comment: Consulting Provider: LUISITO PHELPS Physician Instructions: Reason For Exam: Severe gastroparesis, TPN/Tube feedings recommenda [facility] Condition: Stable Pertinent studies: Chest CTA UE venous Doppler 2d echo CXR Hospital course: 42-year-old woman with a history of diabetes mellitus type 2, severe gastroparesis of unclear etiology, initially had a port-A-cath for TPN s/p multiple IV accesses infection/bacteremia, J-tube (for t-feeds and meds) and G- tube (for stomach decompression?), catheter related DVT and recent catheter removal and placement with SVC angioplasty and thrombectomy , was sent to the emergency room by Dr Soto for evaluation of bacteremia. Patient stated that last week Saturday she had nausea and vomiting and diarrhea. Her diarrhea resolved but the fever was persistent, she was seen in the emergency room at [facility] [place], blood cultures were done, they called her to say that her blood cultures have been positive. She was placed on IV Levaquin, vancomycin, fluconazole. No vegetation on 2d echo. Vascular consulted to see the patient - s/p removal of catheter with temporary peripheral parenteral nutrition and right frmoral TLC placement. BUt again removed TLC as blood Cx here was growing Yeast. Reviewed [facility] [place] blood cultures grew Maria Teresa parapsillosis and Staph hominis 1 bottles, Staph epidermidis 2 bottles. Here blood culture showed Maria Teresa albicans. Staph epi and hominis likely represent contaminants. ID cleared to d/c home on fluconazole 400 mg po qday to complete 14 days. Will need repeat blood culture in 4 weeks at ID office. Planned to stop TPN for recurrent line associated infection for now and cont TF with advance as tolerated. Patient was discharge home in stable condition. Discharge diagnosis: Community-acquired pneumonia, treated Bacteremia with sepsis - Positive blood cultures from [facility] [place] (G+ cocci) and [facility] Teresa at [facility] Diabetes complicated by gastroparesis, tolerating TF, stop TPN h/o DVT on full dose AC with lovenox Disposition: DC/TX-06 HOME UNDER HOME HL Time spent for discharge: 34 minutes Core Measure Documentation - Palliative Care Palliative Care/ Comfort Measures: Not Applicable - Core Measures Any of the following diagnoses?: none Exam - Physical Exam Narrative exam: General appearance: Present: no acute distress, well-nourished - EENT Eyes: PERRL, EOM intact ENT: hearing intact, clear oral mucosa Ears: bilateral: normal - Neck Neck: supple, normal ROM - Respiratory Respiratory effort: normal Respiratory: bilateral: CTA - Cardiovascular Rhythm: regular Heart Sounds: Present: S1 & S2. Absent: gallop, rub Extremities: pulses intact, No edema, normal color, Full ROM - Gastrointestinal General gastrointestinal: Present: soft, non-tender, non-distended, normal bowel sounds, - Integumentary Integumentary: clear, warm, dry - Musculoskeletal Musculoskeletal: 1, strength equal bilaterally - Neurologic Neurologic: moves all extremities - Psychiatric Psychiatric: memory intact, appropriate mood/affect, intact judgment & insight - Constitutional Vitals: Temp Pulse Resp BP Pulse Ox 98.4 F 63 20 145/75 98 07/22/18 05:45 07/22/18 05:45 07/22/18 05:45 07/22/18 05:45 07/22/18 05:45 Plan Activity: advance as tolerated Weight Bearing Status: Weight Bear as Tolerated Diet: diabetic, other (TF 30ml/h and advance to 65ml/h as tolerated) Wound: keep clean and dry Additional Instructions: Repeat blood cx in 4 weeks. repeat BMP in one week Follow [facility] with[facility] LEIGHA [Primary Care Provider] - 3-5 Days DANI PANDEY MD [Staff Physician] - 7 Days Prescriptions: Fluconazole [Diflucan TAB] 100 mg PO QDAY #14 tablet
[2018-07-22] MEDS ORDERED: SODIUM BICARBONATE FEEDTUBE PRN ×2 (13:42→13:45)
[2018-07-22] MEDS ORDERED: SIMPLE SYRUP FEEDTUBE PRN ×4 (13:42→13:45)
[2018-07-22] MEDS ORDERED: PANCREAZE DR 10,500 UNIT FEEDTUBE PRN ×2 (13:42→13:45)
== END 2018-07-22 17:15 | disposition home health service (06) | DRG 228 ==
LOC: ED 18:00 → 3A 23:29
PROVIDERS: ADMIT Internal Medicine; ATTEND Internal Medicine
PROC: 06HY33Z Insertion of Infusion Device into Lower Vein, Percutaneous Approach (ICD-10-PCS; principal; 2018-07-16)
PROC: 02PA33Z Removal of Infusion Device from Heart, Percutaneous Approach (ICD-10-PCS; 2018-07-16)
PROC: B54BZZA Ultrasonography of Right Lower Extremity Veins, Guidance (ICD-10-PCS; 2018-07-16)
PROC: B51B1ZA Fluoroscopy of Right Lower Extremity Veins using Low Osmolar Contrast, Guidance (ICD-10-PCS; 2018-07-16)
PROC: 0JPT3XZ Removal of Tunneled Vascular Access Device from Trunk Subcutaneous Tissue and Fascia, Percutaneous Approach (ICD-10-PCS; 2018-07-16)
PROC: 30233N1 Transfusion of Nonautologous Red Blood Cells into Peripheral Vein, Percutaneous Approach (ICD-10-PCS; 2018-07-16)
PROC: 05HY33Z Insertion of Infusion Device into Upper Vein, Percutaneous Approach (ICD-10-PCS; 2018-07-19)
DX: T82.868A Thrombosis due to vascular prosthetic devices, implants and grafts, initial encounter (principal); A41.9 Sepsis, unspecified organism; J18.9 Pneumonia, unspecified organism; F17.200 Nicotine dependence, unspecified, uncomplicated; K31.84 Gastroparesis; E11.43 Type 2 diabetes mellitus with diabetic autonomic (poly)neuropathy; K21.9 Gastro-esophageal reflux disease without esophagitis; Y83.8 Other surgical procedures as the cause of abnormal reaction of the patient, or of later complication, without mention of misadventure at the time of the procedure; Z86.718 Personal history of other venous thrombosis and embolism; Z90.710 Acquired absence of both cervix and uterus; Z83.3 Family history of diabetes mellitus; Z88.0 Allergy status to penicillin; Z79.899 Other long term (current) drug therapy; Z79.4 Long term (current) use of insulin; Y92.89 Other specified places as the place of occurrence of the external cause
CPT/HCPCS: 36415; 36556; 36589; 71045; 71046; 71275; 80048; 80053; 80202; 81001; 82140; 82962; 83735; 84100; 85025; 85027; 85379; 85730; 86850; 86900; 86901; 86920; 87040; 93308; 93321; 93325; 96361; 96365; 96374; 96375; 96376; G0378; A6250; C1751; J0456; J1100; J1170; J1200; J1450; J1644; J1650; J1956; J2001; J2250; J2270; J2370; J2405; J3370; J7030; J7040; J7042; J7050; P9016; Q9967

== ENCOUNTER 2018-10-11 17:31 | Emergency (ER) | payer OTHER ==
--- NOTE | 2018-10-11 17:39 | Event Note ---
ED Screening Note Date of service: 10/11/18 Time: 17:36 ED Screening Note: 42 y/o female comes in for abd pain worst at her G-tub site and nausea and vomiting with diarrhea. Hx/ gastroparesis. Has Jtub and Gtub. This initial assessment/diagnostic orders/clinical plan/treatment(s) is/are subject to change based on patients health status, clinical progression and re- assessment by fellow clinical providers in the ED. Further treatment and workup at subsequent clinical providers discretion. Patient/guardian urged not to elope from the ED as their condition may be serious if not clinically assessed and managed. Initial orders include:
[2018-10-11 18:05] LABS: Basophils % (Auto) 0.4 % (0.0-1.8); Hematocrit 39.1 % (30.3-42.9); Hemoglobin 13.1 gm/dl (10.1-14.3); Lymphocytes # (Auto) 1.6 K/mm3 (1.2-5.4); Lymphocytes % (Auto) 27.3 % (13.4-35.0); Mean Corpuscular HGB Conc 34 % (30-34); Mean Corpuscular Volume 92 fl (79-97); Monocytes # (Auto) 0.3 K/mm3 (0.0-0.8); Monocytes % (Auto) 5.7 % (0.0-7.3); Platelet Count 258 K/mm3 (140-440); Red Blood Count 4.25 M/mm3 (3.65-5.03); Red Cell Distribution Width 15.5 % (13.2-15.2)
[2018-10-11] MEDS ORDERED: MORPHINE IV ONE ×2 (18:23→19:46)
[2018-10-11] MEDS ORDERED: NACL 0.9% 1000 ML 1,000 ML IV ONE (18:23)
[2018-10-11] MEDS ORDERED: ZOFRAN IV ONE (18:23)
[2018-10-11 18:31] LABS: Alanine Aminotransferase 24 units/L (7-56); Albumin 4.5 g/dL (3.9-5); BUN/Creatinine Ratio 11; Blood Urea Nitrogen 10 mg/dL (7-17); Calcium 9.6 mg/dL (8.4-10.2); Hemolysis Index 3
--- NOTE | 2018-10-11 18:38 | Emergency Department Report ---
ED General Adult HPI - General Chief complaint: Abdominal Pain Stated complaint: VOMIT/DIARRHEA/PAIN Time Seen by Provider: 10/11/18 17:35 Source: patient Mode of arrival: Ambulatory Limitations: No Limitations - History of Present Illness Initial comments: She presents to the emergency department she complains of left lower quadrant abdominal pain that started yesterday. Patient also complains of nausea vomiting. Patient has a history of gastroparesis and has a J-tube placed in the left low quadrant for supplementation nutrients. Patient states she takes nothing by mouth. -: Gradual Location: abdomen Radiation: non-radiation Severity scale (0 -10): 8 Quality: sharp Improves with: none Worsens with: none Associated Symptoms: denies other symptoms Treatments Prior to Arrival: none - Related Data Home Medications Medication Instructions Recorded Confirmed Last Taken Ondansetron [Zofran ODT TAB] 4 mg PO Q4HR PRN 03/04/18 07/14/18 04/03/18 4mg Previous Rx's Medication Instructions Recorded Last Taken Type HYDROcodone/APAP 5-325 [[place] 1 each PO BID PRN #10 tablet 04/15/18 Unknown Rx 5-325 mg TAB] Enoxaparin [Lovenox] 80 mg SUB-Q Q12HR #30 syringe 06/14/18 Unknown Rx Fluconazole [Diflucan TAB] 100 mg PO QDAY #14 tablet 07/22/18 Unknown Rx HYDROcodone/APAP 7.5-325 [[place] 1 each PO Q6HR PRN #15 tablet 10/11/18 Unknown Rx 7.5/325] Ondansetron [Zofran Odt] 4 mg PO Q4HR PRN #20 tab.rapdis 10/11/18 Unknown Rx Allergies Allergy/AdvReac Type Severity Reaction Status Date / Time ketorolac [From Toradol] Allergy Swelling Verified 10/11/18 17:37 metoclopramide [From Reglan] Allergy Unknown Verified 10/11/18 17:37 Penicillins Allergy Swelling Verified 10/11/18 17:37 prochlorperazine Allergy Unknown Verified 10/11/18 17:37 [From Compazine] promethazine [From Phenergan] Allergy Swelling Verified 10/11/18 17:37 tramadol Allergy Swelling Verified 10/11/18 17:37 adhesive tape AdvReac Itching Verified 10/11/18 17:37 Apple Allergy Swelling Uncoded 06/09/18 15:36 Sour cream Allergy Swelling Uncoded 06/09/18 15:36 Whip cream Allergy Swelling Uncoded 06/09/18 15:36 ED Review of Systems ROS: Stated complaint: VOMIT/DIARRHEA/PAIN Other details as noted in HPI Constitutional: denies: chills, fever Eyes: denies: eye pain, eye discharge, vision change ENT: denies: ear pain, throat pain Respiratory: denies: cough, shortness of breath, wheezing Cardiovascular: denies: chest pain, palpitations Endocrine: no symptoms reported Gastrointestinal: abdominal pain. denies: nausea, diarrhea Genitourinary: denies: urgency, dysuria, discharge Musculoskeletal: denies: back pain, joint swelling, arthralgia Skin: denies: rash, lesions Neurological: denies: headache, weakness, paresthesias Psychiatric: denies: anxiety, depression Hematological/Lymphatic: denies: easy bleeding, easy bruising ED Past Medical Hx - Past Medical History Hx Hypertension: No Hx Heart Attack/AMI: No Hx Diabetes: Yes Hx Deep Vein Thrombosis: Yes Hx GERD: Yes Hx Liver Disease: No Hx Renal Disease: No Hx Sickle Cell Disease: No Hx Seizures: No Hx Asthma: No Hx HIV: No Additional medical history: Gastroparesis, Unable to eat or drink on TPN 18 hours a day and IVF 2 hours a day, REBEL Button, SEPSIS. hypoglycemia////G-tube and J-tube - Surgical History Hx Pacemaker: No Hx Internal Defibrillator: No Hx Breast Surgery: (yes, augmentation) Additional Surgical History: Infusaport left chest wall. G-tube(2016) and J- tube(2017), Hysterectomy. Breast augmentation, PICC line - Social History Smoking Status: Never Smoker Substance Use Type: None - Medications Home Medications: Home Medications Medication Instructions Recorded Confirmed Last Taken Type Ondansetron [Zofran ODT TAB] 4 mg PO Q4HR PRN 03/04/18 07/14/18 04/03/18 History 4mg HYDROcodone/APAP 5-325 [[place] 1 each PO BID PRN #10 tablet 04/15/18 07/14/18 Unknown Rx 5-325 mg TAB] Enoxaparin [Lovenox] 80 mg SUB-Q Q12HR #30 syringe 06/14/18 07/14/18 Unknown Rx Fluconazole [Diflucan TAB] 100 mg PO QDAY #14 tablet 07/22/18 Unknown Rx HYDROcodone/APAP 7.5-325 [[place] 1 each PO Q6HR PRN #15 tablet 10/11/18 Unknown Rx 7.5/325] Ondansetron [Zofran Odt] 4 mg PO Q4HR PRN #20 tab.rapdis 10/11/18 Unknown Rx ED Physical Exam - General Limitations: No Limitations General appearance: alert, in no apparent distress - Head Head exam: Present: atraumatic, normocephalic - Eye Eye exam: Present: normal appearance, PERRL, EOMI - ENT ENT exam: Present: mucous membranes moist - Neck Neck exam: Present: normal inspection - Respiratory Respiratory exam: Present: normal lung sounds bilaterally. Absent: respiratory distress - Cardiovascular Cardiovascular Exam: Present: regular rate, normal rhythm. Absent: systolic murmur, diastolic murmur, rubs, gallop - GI/Abdominal GI/Abdominal exam: Present: soft, tenderness (tenderness to palpation left lower quadrant), normal bowel sounds. Absent: distended - Extremities Exam Extremities exam: Present: normal inspection - Back Exam Back exam: Present: normal inspection - Neurological Exam Neurological exam: Present: alert, oriented X3 - Psychiatric Psychiatric exam: Present: normal affect, normal mood - Skin Skin exam: Present: warm, dry, intact, normal color. Absent: rash ED Course Vital Signs 10/11/18 10/11/18 10/11/18 17:35 18:52 19:30 Temperature 97.6 F 98 F Pulse Rate 110 H 72 Respiratory 16 18 18 Rate Blood Pressure 119/67 Blood Pressure 122/78 [Left] O2 Sat by Pulse 98 100 Oximetry 10/11/18 10/11/18 10/11/18 19:45 19:47 20:17 Temperature Pulse Rate Respiratory 16 19 16 Rate Blood Pressure Blood Pressure [Left] O2 Sat by Pulse Oximetry 10/11/18 20:24 Temperature Pulse Rate Respiratory 16 Rate Blood Pressure Blood Pressure [Left] O2 Sat by Pulse Oximetry ED Medical Decision Making - Lab Data Result diagrams: 10/11/18 17:42 10/11/18 17:42 Lab Results 10/11/18 10/11/18 10/11/18 Range/Units 17:42 17:42 18:42 WBC 6.0 (4.5-11.0) K/mm3 RBC 4.25 (3.65-5.03) M/mm3 Hgb 13.1 (10.1-14.3) gm/dl Hct 39.1 (30.3-42.9) % MCV 92 (79-97) fl MCH 31 (28-32) pg MCHC 34 (30-34) % RDW 15.5 H (13.2-15.2) % Plt Count 258 (140-440) K/mm3 Lymph % (Auto) 27.3 (13.4-35.0) % Jackson % (Auto) 5.7 (0.0-7.3) % Eos % (Auto) 0.0 (0.0-4.3) % Baso % (Auto) 0.4 (0.0-1.8) % Lymph # 1.6 (1.2-5.4) K/mm3 Jackson # 0.3 (0.0-0.8) K/mm3 Eos # 0.0 (0.0-0.4) K/mm3 Baso # 0.0 (0.0-0.1) K/mm3 Seg Neutrophils % 66.6 (40.0-70.0) % Seg Neutrophils # 4.0 (1.8-7.7) K/mm3 Sodium 140 (137-145) mmol/L Potassium 3.9 (3.6-5.0) mmol/L Chloride 100.8 (98-107) mmol/L Carbon Dioxide 28 (22-30) mmol/L Anion Gap 15 mmol/L BUN 10 (7-17) mg/dL Creatinine 0.9 (0.7-1.2) mg/dL Estimated GFR > 60 ml/min BUN/Creatinine Ratio 11 % Glucose 113 H (65-100) mg/dL Calcium 9.6 (8.4-10.2) mg/dL Total Bilirubin < 0.20 (0.1-1.2) mg/dL AST 17 (5-40) units/L ALT 24 (7-56) units/L Alkaline Phosphatase 88 (35-129) units/L Total Protein 7.8 (6.3-8.2) g/dL Albumin 4.5 (3.9-5) g/dL Albumin/Globulin Ratio 1.4 % Lipase 13 (13-60) units/L - Radiology Data Radiology results: report reviewed - Medical Decision Making discussed results with patient Critical care attestation.: If time is entered above; I have spent that time in minutes in the direct care of this critically ill patient, excluding procedure time. ED Disposition Clinical Impression: Abdominal pain Disposition: DC- TO HOME OR SELFCARE Is pt being admited?: No Does the pt Need Aspirin: No Condition: Stable Instructions: Abdominal Pain (ED) Additional Instructions: return if worse Referrals: PRIMARY CARE,MD [Primary Care Provider] - 3-5 Days [facility] [Provider Group] - 3-5 Days [facility] [Provider Group] - 3-5 Days Time of Disposition: 20:45
--- NOTE | 2018-10-11 20:06 | Cat Scan Report ---
CT of the abdomen and pelvis with contrast INDICATION: Abdominal pain] jejunostomy tube. COMPARISON: 01/28/2018 FINDINGS: Breast implants are seen. The lung bases are clear. The liver, spleen, pancreas, left adren al gland and kidneys are unremarkable. Low-density right adrenal nodule is again seen likely a nonfun ctioning adenoma. No definite gallbladder or biliary tree abnormality. No fluid or adenopathy in the upper abdomen. Gastrostomy tube is in place appearing to be in good position within the body of the s tomach. A jejunostomy tube is also seen in the left midabdomen also appearing to be in good position. There is no fluid or abscess in either of the feeding tube sites. No adenopathy is seen in the upper abdomen. CT of the pelvis shows a normal appendix. Uterus has been removed. No pelvic or inguinal adenopathy. No diverticulosis or diverticulitis. No significant skeletal lesion. IMPRESSION: No significant abnormality. Automated exposure control was utilized to diminish radiation dose. Signer Name: Ernie Bourgeois MD Signed: 10/11/2018 8:01 PM Workstation Name: [id number]
[2018-10-11] MEDS ORDERED: DILAUDID IV ONE (20:18)
[2018-10-11] MEDS ORDERED: BENADRYL PO ONE (21:13)
[2018-10-11] MEDS ORDERED: BENADRYL IV ONE (21:14)
[2018-10-11 21:32] VITALS: BP 122/68
== END 2018-10-11 21:31 | disposition home or self-care (01) ==
LOC: ED 17:31
DX: R10.32 Left lower quadrant pain (principal); R11.2 Nausea with vomiting, unspecified; E11.9 Type 2 diabetes mellitus without complications; Z86.718 Personal history of other venous thrombosis and embolism; Z98.890 Other specified postprocedural states; Z79.899 Other long term (current) drug therapy; Z88.0 Allergy status to penicillin; Z88.8 Allergy status to other drugs, medicaments and biological substances
CPT/HCPCS: 36415; 74177; 80053; 83690; 85025; 96361; 96374; 96375; 96376; 99284; J1170; J2270; J2405; J7030; Q9967; J1200

== ENCOUNTER 2018-10-13 09:19 | Inpatient (IN) | payer OTHER ==
[~2018-10-13 09:19] MED LIST: D5W/0.45% NACL/KCL 20 MEQ 20 MEQ/1,000 ML BAG IV SCH
[2018-10-13] MEDS ORDERED: ZOFRAN ONE (10:00)
[2018-10-13] MEDS ORDERED: ROBINUL ONE (10:00)
[2018-10-13] MEDS ORDERED: BENADRYL ONE ×2 (10:00→15:40)
--- NOTE | 2018-10-13 11:15 | Anesthesia Consultation ---
Anesthesia Consult and Med Hx Date of service: 10/13/18 - Airway Anesthetic Teeth Evaluation: Good ROM Head & Neck: Adequate Mental/Hyoid Distance: Adequate Mallampati Class: Class I Intubation Access Assessment: Good - Pulmonary Exam CTA: Yes - Cardiac Exam Cardiac Exam: RRR - Pre-Operative Health Status ASA Pre-Surgery Classification: ASA3 Proposed Anesthetic Plan: MAC - Pulmonary Hx Smoking: Yes Hx Respiratory Symptoms: No - Cardiovascular System Hx Hypertension: No Hx Heart Attack/AMI: No Hx Percutaneous Transluminal Coronary Angioplasty (PTCA): No Hx Cardia Arrhythmia: No Hx Peripheral Vascular Disease: Yes (right upper arm vein thrombosis) - Central Nervous System Hx Seizures: No CVA: No Hx Psychiatric Problems: No - Gastrointestinal Hx Gastroesophageal Reflux Disease: No (G-tube in-situ for gastroparesis) - Endocrine Hx Renal Disease: No Hx Liver Disease: No Hx Non-Insulin Dependent Diabetes: Yes (occasional episodes hypoglycemia) Hx Thyroid Disease: No - Hematic Hx Anemia: Yes Hx Sickle Cell Disease: No - Other Systems Hx Cancer: No Hx Obesity: No - Additional Comments Anesthesia Medical History Comments: Hx PONV which responds well to zofran. No longer on TPN. Last intake via g-tube 10/12 1800.
--- NOTE | 2018-10-13 11:15 | Anesthesia Day of Surgery ---
Anesthesia Day of Surgery - Day of Surgery Patient Examined: Yes Patient H&P Reviewed: Yes Patient is NPO: Yes
[2018-10-13 11:21] LABS: BUN/Creatinine Ratio 9; Blood Urea Nitrogen 7 mg/dL (7-17); Calcium 9.2 mg/dL (8.4-10.2); Hemolysis Index 1
[2018-10-13 11:22] LABS: INR 0.86 (0.87-1.13); Partial Thromboplastin Time 26.4 Sec. (24.2-36.6)
[2018-10-13] MEDS ORDERED: ZOFRAN IV NR (12:00)
[2018-10-13] MEDS ORDERED: D5NS 1,000 ML IV SCH (12:00)
[2018-10-13] MEDS ORDERED: VERSED IV NR (12:00)
[2018-10-13] MEDS ORDERED: SUBLIMAZE ONE (12:49)
[2018-10-13] MEDS ORDERED: VERSED ONE ×3 (12:49→16:18)
[2018-10-13] MEDS ORDERED: DIPRIVAN 10 MG/ML IV ONE ×6 (12:49→12:50)
[2018-10-13] MEDS ORDERED: KETALAR ONE (12:50)
[2018-10-13] MEDS ORDERED: LEVAQUIN 500MG/100ML 500 MG/100 ML BAG IV NR (13:27)
[2018-10-13] MEDS ORDERED: LEVAQUIN 500MG/100ML 500 MG/100 ML BAG IV ONE (13:33)
[2018-10-13] MEDS ORDERED: HEPARIN/NS 5000 UNIT/500ML(CATH LAB) 1,000 ML IR ONE (13:53)
[2018-10-13] MEDS: XYLOCAINE 1%/ EPI 1:100,000 INFILTRATI ONE ×2 (13:59→14:12)
[2018-10-13] MEDS: HEPARIN 10,000 UNITS/10 ML ONE ×2 (14:00→14:22)
[2018-10-13] MEDS ORDERED: PEPCID IV ONE (15:39)
[2018-10-13] MEDS ORDERED: SOLU-Medrol ONE (15:40)
[2018-10-13] MEDS ORDERED: ZOFRAN IV PRN (15:41)
[2018-10-13] MEDS ORDERED: SODIUM CHLORIDE FLUSH SYRINGE 10 ML IV PRN (15:41)
[2018-10-13] MEDS ORDERED: TYLENOL PO PRN (15:41)
[2018-10-13] MEDS ORDERED: ZOFRAN ODT PO PRN (15:44)
--- NOTE | 2018-10-13 15:49 | Short Stay Summary ---
<ZO PÉREZ - Last Filed: 10/14/18 15:39> Short Stay Documentation - Allergies and Medications Current Medications: Allergies ketorolac [From Toradol] Allergy (Verified 10/11/18 17:37) Swelling metoclopramide [From Reglan] Allergy (Verified 10/11/18 17:37) Unknown Penicillins Allergy (Verified 10/11/18 17:37) Swelling prochlorperazine [From Compazine] Allergy (Verified 10/11/18 17:37) Unknown promethazine [From Phenergan] Allergy (Verified 10/11/18 17:37) Swelling tramadol Allergy (Verified 10/11/18 17:37) Swelling adhesive tape Adverse Reaction (Verified 10/11/18 17:37) Itching Apple Allergy (Uncoded 06/09/18 15:36) Swelling Sour cream Allergy (Uncoded 06/09/18 15:36) Swelling Whip cream Allergy (Uncoded 06/09/18 15:36) Swelling Home Medications Medication Instructions Recorded Confirmed Last Taken Type HYDROcodone/APAP 5-325 [[place] 1 each PO BID PRN #10 tablet 04/15/18 10/13/18 10/12/18 Rx 5-325 mg TAB] 1 tab Enoxaparin [Lovenox] 80 mg SUB-Q Q12HR #30 syringe 06/14/18 10/13/18 10/12/18 Rx 80mg Ondansetron [Zofran Odt] 4 mg PO Q4HR PRN #20 tab.rapdis 10/11/18 10/13/18 10/12/18 Rx 4mg Active Medications Acetaminophen (Tylenol) 650 mg PO Q4H PRN PRN Reason: Pain MILD(1-3)/Fever >100.5/GONZALEZ Acetaminophen/Hydrocodone Bitart ([place] 5/325) 2 each PO Q6H PRN PRN Reason: Pain, Moderate (4-6) Last Admin: 10/14/18 11:05 Dose: 2 each Documented by: Lipase/Protease/Amylase (Ruddy Zazueta 10,500 Unit) 1 each FEEDTUBE PRN PRN PRN Reason: For Clogged Feeding Tube Diphenhydramine HCl (Benadryl) 25 mg IV Q6H PRN PRN Reason: Itching Last Admin: 10/14/18 11:05 Dose: 25 mg Documented by: Enoxaparin Sodium (Lovenox) 60 mg SUB-Q BID HERI Last Admin: 10/14/18 09:38 Dose: 60 mg Documented by: Hydromorphone HCl (Dilaudid) 1 mg IV Q2H PRN PRN Reason: Pain , Severe (7-10) Last Admin: 10/14/18 01:58 Dose: 1 mg Documented by: Sodium Chloride (Nacl 0.9% 1000 Ml) 1,000 mls @ 75 mls/hr IV DIRECT HERI Last Admin: 10/14/18 06:56 Dose: 75 mls/hr Documented by: Insulin Human Lispro (Humalog) 0 unit SUB-Q ACHS HERI; Protocol Ondansetron HCl (Zofran Odt) 4 mg PO Q4HR PRN PRN Reason: Nausea Ondansetron HCl (Zofran) 4 mg IV Q3H PRN PRN Reason: Nausea And Vomiting Simple Syrup (Simple Syrup) 15 ml FEEDTUBE PRN PRN PRN Reason: Hypoglycemia Simple Syrup (Simple Syrup) 30 ml FEEDTUBE PRN PRN PRN Reason: Hypoglycemia Sodium Bicarbonate (Sodium Bicarbonate) 325 mg FEEDTUBE PRN PRN PRN Reason: For Clogged Feeding Tube Sodium Chloride (Sodium Chloride Flush Syringe 10 Ml) 10 ml IV BID [facility] Last Admin: 10/14/18 09:38 Dose: 10 ml Documented by: Sodium Chloride (Sodium Chloride Flush Syringe 10 Ml) 10 ml IV PRN PRN PRN Reason: LINE FLUSH Last Admin: 10/14/18 05:21 Dose: 10 ml Documented by: - Disposition Condition at discharge: Stable Disposition: DC-01 TO HOME OR SELFCARE Short Stay Discharge Plan Activity: no restrictions Wound: open to air, keep clean and dry Follow up with: [facility] [Provider Group] - 7 Days MAURICIO SOTO MD [Staff Physician] - 14 Days <MAURICIO SOTO - Last Filed: 10/16/18 12:28> Short Stay Documentation Date of service: 10/13/18 Narrative H&P: 42 year old female with worsening symptoms of SVC syndrome 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 - History Principal diagnosis: SVC occlusion/stenosis/thrombosis H&P: obtained from office - Allergies and Medications Current Medications: Allergies ketorolac [From Toradol] Allergy (Verified 10/11/18 17:37) Swelling metoclopramide [From Reglan] Allergy (Verified 10/11/18 17:37) Unknown Penicillins Allergy (Verified 10/11/18 17:37) Swelling prochlorperazine [From Compazine] Allergy (Verified 10/11/18 17:37) Unknown promethazine [From Phenergan] Allergy (Verified 10/11/18 17:37) Swelling tramadol Allergy (Verified 10/11/18 17:37) Swelling adhesive tape Adverse Reaction (Verified 10/11/18 17:37) Itching Apple Allergy (Uncoded 06/09/18 15:36) Swelling Sour cream Allergy (Uncoded 06/09/18 15:36) Swelling Whip cream Allergy (Uncoded 06/09/18 15:36) Swelling Home Medications Medication Instructions Recorded Confirmed Last Taken Type RX: HYDROcodone/APAP 5-325 [[place] 1 each PO BID PRN #10 tablet 04/15/18 10/13/18 10/12/18 Rx 5-325 mg TAB] 1 tab RX: Enoxaparin [Lovenox] 80 mg SUB-Q Q12HR #30 syringe 06/14/18 10/13/18 10/12/18 Rx 80mg Ondansetron [Zofran Odt] 4 mg PO Q4HR PRN #20 tab.rapdis 10/11/18 10/13/18 10/12/18 Rx 4mg Active Medications Acetaminophen (Tylenol) 650 mg PO Q4H PRN PRN Reason: Pain MILD(1-3)/Fever >100.5/GONZALEZ Acetaminophen/Hydrocodone Bitart ([place] 5/325) 2 each PO Q6H PRN PRN Reason: Pain, Moderate (4-6) Enoxaparin Sodium (Lovenox) 80 mg SUB-Q Q12HR HERI Hydromorphone HCl (Dilaudid) 1 mg IV Q2H PRN PRN Reason: Pain , Severe (7-10) Dextrose/Sodium Chloride (D5ns) 1,000 mls @ 50 mls/hr IV DIRECT HERI Last Admin: 10/13/18 11:41 Dose: 50 mls/hr Documented by: Levofloxacin/Dextrose (Levaquin 500mg/100ml) 500 mg in 100 mls @ 100 mls/hr IV ONCE NR Stop: 10/13/18 20:00 Last Admin: 10/13/18 13:57 Dose: 100 mls Documented by: Dextrose/Sodium Chloride (D5/0.45ns) 1,000 mls @ 75 mls/hr IV DIRECT HERI Midazolam HCl (Versed) 2 mg IV PREOP NR Stop: 10/13/18 23:59 Last Admin: 10/13/18 12:59 Dose: 2 mg Documented by: Ondansetron HCl (Zofran) 4 mg IV PREOP NR Stop: 10/13/18 20:00 Last Admin: 10/13/18 12:51 Dose: 4 mg Documented by: Ondansetron HCl (Zofran) 4 mg IV Q8H PRN PRN Reason: Nausea Ondansetron HCl (Zofran Odt) 4 mg PO Q4HR PRN PRN Reason: Nausea Sodium Chloride (Sodium Chloride Flush Syringe 10 Ml) 10 ml IV BID HERI Sodium Chloride (Sodium Chloride Flush Syringe 10 Ml) 10 ml IV PRN PRN PRN Reason: LINE FLUSH - Physical exam General appearance: mild distress (head and neck swelling with pain with laying flat) Lungs: Normal air movement Gastrointestinal: other (G tube and J tube with pain at the sites from swelling) Extremities: normal temperature, normal color, abnormal (edema of the upper extremity arm veins) - Brief post op/procedure progress note Date of procedure: 10/13/18 Pre-op diagnosis: SVC syndrome with acute on chronic exacerbation Post-op diagnosis: same Procedure: 1. Ultrasound guided access of the right common femoral vein 2. Selection of the SVC from the femoral approach with angiography 3. Selection of the right internal jugular vein from a femoral approach with angiography 4. Selection of the left innominate and subclavian vein from a femoral approach with angiography 5. Ultrasound guided access of the right internal jugular vein 6. Fluoroscopic guided placement of the 16/13 Clottriever sheath in the right internal jugular vein 7. Clottriever thrombectomy of the SVC with multiple passes 8. Angioplasty of the lower right internal jugular vein and SVC with a 12 mm x 6 cm angioplasty balloon 9. Angioplasty of the left subclavian vein with a 9 mm x 60 mm angioplasty balloon 10. Angioplasty of the left innominate vein with a 12 mm x 6 cm angioplasty balloon 11. Angioplasty of the SVC with a 14 mm x 4 cm angioplasty balloon Surgeon: MAURICIO SOTO Estimated blood loss: minimal Condition: stable - Hospital course Hospital course: Tolerated procedure without issue. Pressure dressing applied. Consulted medicine and have orders to allow patient to use venting G tube and feeding J tube as she does at home. Had pressure dressing, stitch removed, and dermabond applied in AM. 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
[2018-10-13] MEDS ORDERED: SODIUM CHLORIDE FLUSH SYRINGE 10 ML IV SCH (16:00)
[2018-10-13] MEDS ORDERED: D5/0.45NS 1,000 ML IV SCH (16:00)
[2018-10-13] MEDS ORDERED: VERSED IV ONE (16:33)
[2018-10-13] MEDS: DILAUDID IV PRN ×4 (16:35→22:17)
[2018-10-13] MEDS ORDERED: DILAUDID ONE (17:03)
--- NOTE | 2018-10-13 17:06 | Operative Report ---
Operative Report Operative Report: EXAM: 1. Ultrasound guided access of the right common femoral vein 2. Selection of the SVC from the femoral approach with angiography 3. Selection of the right internal jugular vein from a femoral approach with angiography 4. Selection of the left innominate and subclavian vein from a femoral approach with angiography 5. Ultrasound guided access of the right internal jugular vein 6. Fluoroscopic guided placement of the 16/13 Clottriever sheath in the right internal jugular vein 7. Clottriever thrombectomy of the SVC with multiple passes 8. Angioplasty of the lower right internal jugular vein and SVC with a 12 mm x 6 cm angioplasty balloon 9. Angioplasty of the left subclavian vein with a 9 mm x 60 mm angioplasty balloon 10. Angioplasty of the left innominate vein with a 12 mm x 6 cm angioplasty balloon 11. Angioplasty of the SVC with a 14 mm x 4 cm angioplasty balloon DATE: 10/13/18 STEEL PLATE PRINTER: MAURICIO SOTO MD INDICATION: 42-year-old female with multiple TPN catheters placed for gastroparesis with subsequent SVC chronic DVT and acute on chronic DVT 3 months ago with acute on chronic symptoms and exacerbation compatible with repeat thrombosis. Patient presents for thrombectomy and angioplasty of the SVC and upper extremity veins. MEDICATIONS: Please see nursing report for full details. DEVICES: Clottriever sheath and thrombectomy device 12 mm x 6 cm angioplasty balloon 14 mm x 4 cm angioplasty balloon 9 mm x 6 cm angioplasty balloon CONTRAST: Please see microbiology lab assistant report for full details. PROCEDURE: The risks, benefits, and alternatives were discussed the patient; written informed consent was obtained. The patient's groins and right neck were prepped and draped in sterile fashion. Ultrasound was used to evaluate the right common femoral vein which was patent. Under direct ultrasound guidance, the right common femoral vein was accessed with a 21-gauge micro-puncture needle. 0.018 inch wire was passed into the IVC. The wire was exchanged for 0.035 wire. Transitional dilator was exchanged for a 5 Georgian sheath, and then a 6 Georgian sheath. Pigtail catheter was then used to select the left innominate vein and digital subtraction angiography was performed demonstrating 50-60% narrowing of the central left innominate vein and 40% narrowing of the left subclavian vein. The SVC had a 90% narrowing at the lower portion of the vein. There were some thrombus associated with the SVC narrowing. Pigtail catheter was used to select the right internal jugular vein and digital subtraction angiography was performed of ensuring patency of the right internal jugular vein except for the lower portion of the vein which had a 50% narrowing. There is some dilatation of the upper portion of the SVC. The subclavian vein was not visualized due to prior chronic occlusion. The SVC was then selected and digital subtraction angiography was performed confirming the above-mentioned findings. The patient was heparinized. Ultrasound was used to evaluate the right internal jugular vein which was patent. Under direct ultrasound guidance, the right internal jugular vein was accessed with a 21-gauge micropuncture needle. 0.018 inch wire was passed into the IVC. Wire was exchanged for 0.035 inch wire passed into the left common femoral vein. Transitional dilator was exchanged for multiple dilators and ultimately a 13 Georgian/16 Georgian outer Clottriever sheath. This sheath was deployed with the mesh funnel in the lower portion of the right internal jugular vein. The thrombectomy with device was advanced over the wire and then deployed in the right atrium with retraction along the SVC narrowing and into the sheath multiple times. There was some removal of thrombus. After this was performed, I decided to perform angioplasty. 12 mm x 6 cm angioplasty balloon was advanced over the wire and use to perform angioplasty of the lower right internal jugular vein and the SVC. After this was performed, 14 mm x 4 cm angioplasty balloon was used to perform angioplasty of the SVC. Digital subtraction angiography was performed demonstrating 30-40% residual narrowing of the SVC and less than 10% residual narrowing of the lower internal jugular vein. From the femoral approach, the sheath was upsized to an 8 Georgian 45 cm [place] destination and a wire was used to select the left innominate vein. 12 mm x 6 cm angioplasty balloon was used to perform angioplasty of the central left innominate vein and a 9 mm x 6 cm angioplasty balloon was used to perform an gioplasty of the left subclavian vein. Digital subtraction angiography demonstrated less than 10% residual narrowing of both of these narrowings. The left subclavian vein was selected and digital subtraction angiography was performed confirming these findings. Multiple attempts were then made to select the right subclavian vein but this was ultimately not amenable to selection. At this point, all wires, catheters, and sheath removed. The internal jugular access site was closed with a 2-0 Ethilon suture and a pressure dressing after pressure was held. Patient tolerated the procedure well. No immediate postprocedure complication. FINDINGS: Please see procedure note above. IMPRESSION: 1. Successful partial thrombectomy of the SVC as described above. 2. Successful angioplasty of the SVC, lower right internal jugular vein, left innominate vein, and left subclavian vein. 3. Successful selection of the right internal jugular vein from a femoral approach, and left subclavian vein from a femoral approach with venography.
[2018-10-13] MEDS: BENADRYL IV PRN (22:18)
[2018-10-14] MEDS ORDERED: SIMPLE SYRUP FEEDTUBE PRN ×2 (01:17)
[2018-10-14] MEDS ORDERED: PANCREAZE DR 10,500 UNIT FEEDTUBE PRN (01:17)
[2018-10-14] MEDS ORDERED: SODIUM BICARBONATE FEEDTUBE PRN (01:17)
--- NOTE | 2018-10-14 01:22 | Consultation ---
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 Postprocedure patient doing well. Patient has history of peripheral vascular disease gastroparesis and diabetes and anemia.. Patient also has a G-tube and J-tube. Past History Past Medical History: diabetes, GERD, PVD, other (gastroparesis and anemia) Past Surgical History: Other (SVC thrombectomy G-tube and J-tube) Social history: no significant social history, AND/DNR-allow natural Family history: hypertension Medications and Allergies Allergies Allergy/AdvReac Type Severity Reaction Status Date / Time ketorolac [From Toradol] Allergy Swelling Verified 10/11/18 17:37 metoclopramide [From Reglan] Allergy Unknown Verified 10/11/18 17:37 Penicillins Allergy Swelling Verified 10/11/18 17:37 prochlorperazine Allergy Unknown Verified 10/11/18 17:37 [From Compazine] promethazine [From Phenergan] Allergy Swelling Verified 10/11/18 17:37 tramadol Allergy Swelling Verified 10/11/18 17:37 adhesive tape AdvReac Itching Verified 10/11/18 17:37 Apple Allergy Swelling Uncoded 06/09/18 15:36 Sour cream Allergy Swelling Uncoded 06/09/18 15:36 Whip cream Allergy Swelling Uncoded 06/09/18 15:36 Home Medications Medication Instructions Recorded Confirmed Last Taken Type HYDROcodone/APAP 5-325 [[place] 1 each PO BID PRN #10 tablet 04/15/18 10/13/18 10/12/18 Rx 5-325 mg TAB] 1 tab Enoxaparin [Lovenox] 80 mg SUB-Q Q12HR #30 syringe 06/14/18 10/13/18 10/12/18 Rx 80mg Ondansetron [Zofran Odt] 4 mg PO Q4HR PRN #20 tab.rapdis 10/11/18 10/13/18 10/12/18 Rx 4mg Active Meds: Active Medications Acetaminophen (Tylenol) 650 mg PO Q4H PRN PRN Reason: Pain MILD(1-3)/Fever >100.5/GONZALEZ Acetaminophen/Hydrocodone Bitart ([place] 5/325) 2 each PO Q6H PRN PRN Reason: Pain, Moderate (4-6) Diphenhydramine HCl (Benadryl) 25 mg IV Q6H PRN PRN Reason: Itching Last Admin: 10/13/18 22:18 Dose: 25 mg Documented by: Enoxaparin Sodium (Lovenox) 60 mg SUB-Q BID [facility] Hydromorphone HCl (Dilaudid) 1 mg IV Q2H PRN PRN Reason: Pain , Severe (7-10) Last Admin: 10/13/18 22:17 Dose: 1 mg Documented by: Dextrose/Sodium Chloride (D5/0.45ns) 1,000 mls @ 75 mls/hr IV DIRECT HERI Last Admin: 10/13/18 18:42 Dose: 75 mls/hr Documented by: Ondansetron HCl (Zofran) 4 mg IV Q8H PRN PRN Reason: Nausea Ondansetron HCl (Zofran Odt) 4 mg PO Q4HR PRN PRN Reason: Nausea Sodium Chloride (Sodium Chloride Flush Syringe 10 Ml) 10 ml IV BID [facility] Last Admin: 10/13/18 19:25 Dose: 10 ml Documented by: Sodium Chloride (Sodium Chloride Flush Syringe 10 Ml) 10 ml IV PRN PRN PRN Reason: LINE FLUSH Review of Systems All systems: negative Exam - Constitutional Vitals: Temp Pulse Resp BP Pulse Ox 98.3 F 69 19 124/71 98 10/13/18 22:53 10/13/18 22:53 10/13/18 22:53 10/13/18 22:53 10/13/18 22:53 General appearance: Present: no acute distress, well-nourished - EENT Eyes: Present: PERRL ENT: hearing intact, clear oral mucosa - Neck Neck: Present: supple, normal ROM - Respiratory Respiratory effort: normal Respiratory: bilateral: CTA - Cardiovascular Heart rate: 78 Rhythm: regular Heart Sounds: Present: S1 & S2. Absent: rub, click - Extremities Extremities: no ischemia, pulses intact, pulses symmetrical, No edema Peripheral Pulses: within normal limits - Abdominal General gastrointestinal: Present: soft, non-tender, non-distended, normal bowel sounds Female genitourinary: Present: normal - Integumentary Integumentary: Present: clear, warm, dry - Musculoskeletal Musculoskeletal: gait normal, strength equal bilaterally - Psychiatric Psychiatric: appropriate mood/affect, intact judgment & insight - Neurologic Neurologic: CNII-XII intact, moves all extremities Results - Labs CBC & Chem 7: 10/13/18 11:00 Labs: Abnormal lab results 10/13/18 10/13/18 Range/Units 11:00 22:58 PT 11.5 L (12.2-14.9) Sec. 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
[2018-10-14] MEDS ORDERED: ZOFRAN IV PRN (01:24)
[2018-10-14] MEDS ORDERED: TYLENOL PO PRN (01:24)
[2018-10-14] MEDS ORDERED: REGLAN IV PRN (01:24)
[2018-10-14] MEDS: DILAUDID IV PRN (01:58)
[2018-10-14] MEDS: SODIUM CHLORIDE FLUSH SYRINGE 10 ML IV PRN ×2 (01:59→05:21)
[2018-10-14] MEDS ORDERED: NACL 0.9% 1000 ML 1,000 ML IV SCH (02:00)
[2018-10-14] MEDS: BENADRYL IV PRN ×2 (05:14→11:05)
[2018-10-14] MEDS: NORCO 5/325 PO PRN ×2 (05:14→11:05)
[2018-10-14] MEDS ORDERED: LOVENOX SUB-Q SCH ×2 (10:00)
[2018-10-14] MEDS ORDERED: SODIUM CHLORIDE FLUSH SYRINGE 10 ML IV SCH (10:00)
[2018-10-14] MEDS: HumaLOG SUB-Q SCH ×2 (12:18→17:18)
[2018-10-14 13:16] VITALS: BP 102/64
--- NOTE | 2018-10-14 15:37 | Progress Note ---
Assessment and Plan Improved facial swelling and complaints after procedure d/c home today patient has follow up appt scheduled Subjective Date of service: 10/14/18 Principal diagnosis: SVC occlusion/stenosis/thrombosis Interval history: Patient states she has a headache however its improved from prior to the procedure. She has no other complaint. Objective - Constitutional Vitals: Vital Signs - 12hr 10/14/18 10/14/18 10/14/18 03:38 07:46 12:42 Temperature 97.9 F 97.7 F 98.3 F Pulse Rate 71 66 81 Respiratory 20 14 14 Rate Blood Pressure 101/62 110/64 102/64 O2 Sat by Pulse 99 96 98 Oximetry General appearance: Present: no acute distress, other (no noticeable facial edema) - Neck Neck: supple, other (suture in place removed and dermabond placed) - Respiratory Respiratory effort: normal - Cardiovascular Rhythm: regular Extremities: no ischemia - Labs CBC & Chem 7: 10/13/18 11:00 Labs: Abnormal lab results 10/13/18 10/14/18 10/14/18 Range/Units 22:58 05:25 08:08 POC Glucose 138 H 163 H 129 H (70-105) Medications & Allergies - Medications Allergies/Adverse Reactions: Allergies ketorolac [From Toradol] Allergy (Verified 10/11/18 17:37) Swelling metoclopramide [From Reglan] Allergy (Verified 10/11/18 17:37) Unknown Penicillins Allergy (Verified 10/11/18 17:37) Swelling prochlorperazine [From Compazine] Allergy (Verified 10/11/18 17:37) Unknown promethazine [From Phenergan] Allergy (Verified 10/11/18 17:37) Swelling tramadol Allergy (Verified 10/11/18 17:37) Swelling adhesive tape Adverse Reaction (Verified 10/11/18 17:37) Itching Apple Allergy (Uncoded 06/09/18 15:36) Swelling Sour cream Allergy (Uncoded 06/09/18 15:36) Swelling Whip cream Allergy (Uncoded 06/09/18 15:36) Swelling Home Medications: Home Medications Medication Instructions Recorded Confirmed Last Taken Type HYDROcodone/APAP 5-325 [[place] 1 each PO BID PRN #10 tablet 04/15/18 10/13/18 10/12/18 Rx 5-325 mg TAB] 1 tab Enoxaparin [Lovenox] 80 mg SUB-Q Q12HR #30 syringe 06/14/18 10/13/18 10/12/18 Rx 80mg Ondansetron [Zofran Odt] 4 mg PO Q4HR PRN #20 tab.rapdis 10/11/18 10/13/18 10/12/18 Rx 4mg Active Medications: Generic Name Dose Route Start Last Admin Trade Name Freq PRN Reason Stop Dose Admin Acetaminophen 650 mg 10/14/18 01:24 Tylenol PO Q4H PRN Pain MILD(1-3)/Fever >100.5/GONZALEZ Acetaminophen/Hydrocodone Bitart 2 each 10/13/18 15:41 10/14/18 11:05 [place] 5/325 PO 2 each Q6H PRN Administration Pain, Moderate (4-6) Lipase/Protease/Amylase 1 each 10/14/18 01:[address] 10,500 Unit FEEDTUBE PRN PRN For Clogged Feeding Tube Diphenhydramine HCl 25 mg 10/13/18 21:29 10/14/18 11:05 Benadryl IV 25 mg Q6H PRN Administration Itching Enoxaparin Sodium 60 mg 10/14/18 10:00 10/14/18 09:38 Lovenox SUB-Q 60 mg BID HERI Administration Hydromorphone HCl 1 mg 10/13/18 15:41 10/14/18 01:58 Dilaudid IV 1 mg Q2H PRN Administration Pain , Severe (7-10) Sodium Chloride 1,000 mls @ 75 mls/hr 10/14/18 02:00 10/14/18 06:56 Nacl 0.9% 1000 Ml IV 75 mls/hr DIRECT HERI Administration Insulin Human Lispro 0 unit 10/14/18 07:30 Humalog SUB-Q ACHS HERI Protocol Ondansetron HCl 4 mg 10/13/18 15:44 Zofran Odt PO Q4HR PRN Nausea Ondansetron HCl 4 mg 10/14/18 01:24 Zofran IV Q3H PRN Nausea And Vomiting Simple Syrup 15 ml 10/14/18 01:17 Simple Syrup FEEDTUBE PRN PRN Hypoglycemia Simple Syrup 30 ml 10/14/18 01:17 Simple Syrup FEEDTUBE PRN PRN Hypoglycemia Sodium Bicarbonate 325 mg 10/14/18 01:17 Sodium Bicarbonate FEEDTUBE PRN PRN For Clogged Feeding Tube Sodium Chloride 10 ml 10/14/18 10:00 10/14/18 09:38 Sodium Chloride Flush Syringe 10 Ml IV 10 ml BID HERI Administration Sodium Chloride 10 ml 10/14/18 01:24 10/14/18 05:21 Sodium Chloride Flush Syringe 10 Ml IV 10 ml PRN PRN Administration LINE FLUSH
--- NOTE | 2018-10-14 20:02 | Progress Note ---
Assessment and Plan - Patient Problems (1) Acute superior vena cava occlusion Status: Acute Plan to address problem: Patient improved after procedure. Plan is for discharge today. (2) Gastroparesis Status: Chronic Plan to address problem: Stable with Reglan J tube (3) IDDM (insulin dependent diabetes mellitus) Status: Chronic Plan to address problem: Patient has optimal control of diabetes. As for her home with continued medical management. History Interval history: Patient seen doing well status post procedure for S VC syndrome. Headache improved facial swelling improved plans for discharge today. Hospitalist Physical - Constitutional Vitals: Temp Pulse Resp BP Pulse Ox 98.3 F 81 14 102/64 98 10/14/18 12:42 10/14/18 12:42 10/14/18 12:42 10/14/18 12:42 10/14/18 12:42 General appearance: Present: no acute distress, other (no noticeable facial edema has resolved.) - EENT Eyes: Present: PERRL, EOM intact ENT: hearing intact, clear oral mucosa, dentition normal - Neck Neck: Present: supple, normal ROM - Respiratory Respiratory effort: normal Respiratory: bilateral: CTA - Cardiovascular Rhythm: regular - Extremities Extremities: no ischemia, pulses intact, pulses symmetrical, No edema, normal temperature, normal color Peripheral Pulses: within normal limits - Abdominal General gastrointestinal: soft, non-tender, non-distended, normal bowel sounds - Integumentary Integumentary: Present: clear, warm, dry - Psychiatric Psychiatric: appropriate mood/affect - Neurologic Neurologic: CNII-XII intact, moves all extremities Results - Labs CBC & Chem 7: 10/13/18 11:00 Labs: Laboratory Last Values PT 11.5 Sec. (12.2-14.9) L 10/13/18 11:00 INR 0.86 (0.87-1.13) L 10/13/18 11:00 APTT 26.4 Sec. (24.2-36.6) 10/13/18 11:00 Sodium 142 mmol/L (137-145) 10/13/18 11:00 Potassium 4.0 mmol/L (3.6-5.0) 10/13/18 11:00 Chloride 104.0 mmol/L (98-107) 10/13/18 11:00 Carbon Dioxide 28 mmol/L (22-30) 10/13/18 11:00 14 mmol/L 10/13/18 11:00 BUN 7 mg/dL (7-17) 10/13/18 11:00 0.8 mg/dL (0.7-1.2) 10/13/18 11:00 Estimated GFR > 60 ml/min 10/13/18 11:00 9 % 10/13/18 11:00 Glucose 84 mg/dL (65-100) 10/13/18 11:00 POC Glucose 98 (70-105) 10/14/18 11:31 Calcium 9.2 mg/dL (8.4-10.2) 10/13/18 11:00 Nutrition/Malnutrition Assess - Dietary Evaluation Nutrition/Malnutrition Findings: Nutrition Notes Start: 10/14/18 12:07 Freq: Status: Discharge Protocol: Document 10/14/18 12:08 RM (Rec: 10/14/18 12:11 RM [id number]) Nutrition Notes Need for Assessment generated from: MD Order Initial or Follow up Assessment Other Pertinent Diagnosis SVC syndrome, Acute superior vena cava occlusion, Gastroparesis, PEG Current Diet TF (blank) Labs/Tests Reviewed Pertinent Medications Nacl 0.9% at 75 ml/hr Height 5 ft 8 in Weight 79 kg Usual Body Weight 70.45 kg [place] Body Weight (kg) 63.63 BMI 26.4 Weight change and time frame Current wt obtained [facility] Subjective/Other Information Consulted for TF recommendation. Pt is known to me from previous admissions for line infections. Pt was using PPN and TF at that time. Pt stated that she is not using TPN currently d/t Hx line infections and that she infuses Glucerna 1.2 at 20 ml/ hr at home. Stated that above that rate causes her pain. Pt stated that her UBW is 150 to 160 lbs. Pt stated that she has edema from SVC snydrome. 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 No Is Patient Ambulatory and/or Out of Bed No [facility] [id number] Calculation Used for Recommendations Moody-St Jeor Additional Notes Protein Needs: 57-71g (0.8-1g/ kg 71kg adjBW) Fluid Needs: 1 ml/kcal Nutrition Intervention Nutrition Support: Glucerna 1.2 at 20 ml/hr. Water flush of 50 mls q 4 hrs. If tolerating next visit will consider advancing rate Kcal 576 Protein (gm) 30 Fluid (mL) 386 Goal #1 TF tolerance Anticipated Discharge Needs: Unable to determine at this time Follow-Up By: 10/16/18 Additional Comments Follow for TF tolerance
== END 2018-10-14 17:15 | disposition home or self-care (01) | DRG 278 ==
LOC: CATHLABREC 09:19 → 4A 15:41
PROVIDERS: ADMIT Radiology Diagnostic Radiology; ATTEND Radiology Diagnostic Radiology
PROC: 027V3ZZ Dilation of Superior Vena Cava, Percutaneous Approach (ICD-10-PCS; principal; 2018-10-13)
PROC: 02CV3ZZ Extirpation of Matter from Superior Vena Cava, Percutaneous Approach (ICD-10-PCS; 2018-10-13)
PROC: 05763ZZ Dilation of Left Subclavian Vein, Percutaneous Approach (ICD-10-PCS; 2018-10-13)
PROC: 057Y3ZZ Dilation of Upper Vein, Percutaneous Approach (ICD-10-PCS; 2018-10-13)
PROC: 05743ZZ Dilation of Left Innominate Vein, Percutaneous Approach (ICD-10-PCS; 2018-10-13)
PROC: B54BZZA Ultrasonography of Right Lower Extremity Veins, Guidance (ICD-10-PCS; 2018-10-13)
PROC: B5131ZZ Fluoroscopy of Right Jugular Veins using Low Osmolar Contrast (ICD-10-PCS; 2018-10-13)
PROC: B51V1ZZ Fluoroscopy of Other Veins using Low Osmolar Contrast (ICD-10-PCS; 2018-10-13)
PROC: B5181ZZ Fluoroscopy of Superior Vena Cava using Low Osmolar Contrast (ICD-10-PCS; 2018-10-13)
PROC: B5161ZZ Fluoroscopy of Right Subclavian Vein using Low Osmolar Contrast (ICD-10-PCS; 2018-10-13)
PROC: B543ZZA Ultrasonography of Right Jugular Veins, Guidance (ICD-10-PCS; 2018-10-13)
DX: I82.210 Acute embolism and thrombosis of superior vena cava (principal); E44.1 Mild protein-calorie malnutrition; I82.211 Chronic embolism and thrombosis of superior vena cava; F17.200 Nicotine dependence, unspecified, uncomplicated; I73.9 Peripheral vascular disease, unspecified; E11.9 Type 2 diabetes mellitus without complications; E11.43 Type 2 diabetes mellitus with diabetic autonomic (poly)neuropathy; K31.84 Gastroparesis; K21.9 Gastro-esophageal reflux disease without esophagitis; D64.9 Anemia, unspecified; Z82.49 Family history of ischemic heart disease and other diseases of the circulatory system; Z37.0 Single live birth; Z93.1 Gastrostomy status; Z88.0 Allergy status to penicillin; Z68.26 Body mass index [BMI] 26.0-26.9, adult
CPT/HCPCS: 36415; 37187; 37248; 37249; 75827; 80048; 82962; 85610; 85730; 96374; 96375; G0378; C1725; C1769; C1887; C1894; J1170; J1200; J1644; J1650; J1956; J2250; J2405; J2704; J2930; J3010; J7030; J7042; Q9967

== ENCOUNTER 2018-12-07 14:58 | Inpatient (IN) | payer OTHER ==
--- NOTE | 2018-12-07 15:21 | Event Note ---
ED Screening Note Date of service: 12/07/18 Time: 15:19 ED Screening Note: This is a 43 y.o. F. that presents to the ER with right sided facial numbness, hoarseness and sore throat x 2 weeks. History of of SVC syndrome. Surgery with Dr. Ghosh 10/13/2018 States symptoms are similar to SVC syndrome symptoms. PMH of gastroparesis, DM2, DVT, and anemia This initial assessment/diagnostic orders/clinical plan/treatment(s) is/are subject to change based on patients health status, clinical progression and re- assessment by fellow clinical providers in the ED. Further treatment and workup at subsequent clinical providers discretion. Patient/guardian urged not to elope from the ED as their condition may be serious if not clinically assessed and managed. Initial orders include: Labs
[2018-12-07 15:48] LABS: Basophils # (Auto) 0.1 K/mm3 (0.0-0.1); Basophils % (Auto) 1.5 % (0.0-1.8); Hematocrit 38.5 % (30.3-42.9); Hemoglobin 13.2 gm/dl (10.1-14.3); Lymphocytes # (Auto) 2.4 K/mm3 (1.2-5.4); Lymphocytes % (Auto) 33.9 % (13.4-35.0); Mean Corpuscular HGB Conc 34 % (30-34); Mean Corpuscular Volume 93 fl (79-97); Monocytes # (Auto) 0.4 K/mm3 (0.0-0.8); Monocytes % (Auto) 5.1 % (0.0-7.3); Platelet Count 279 K/mm3 (140-440); Red Blood Count 4.16 M/mm3 (3.65-5.03); Red Cell Distribution Width 13.5 % (13.2-15.2)
[2018-12-07 16:12] LABS: Alanine Aminotransferase 16 units/L (7-56); Albumin 4.7 g/dL (3.9-5); BUN/Creatinine Ratio 11; Blood Urea Nitrogen 10 mg/dL (7-17); Calcium 9.9 mg/dL (8.4-10.2); Hemolysis Index 8
--- NOTE | 2018-12-07 16:34 | Emergency Department Report ---
ED General Adult HPI - General Chief complaint: Sore Throat Stated complaint: SORE THROAT Time Seen by Provider: 12/07/18 15:19 Source: patient Mode of arrival: Ambulatory Limitations: No Limitations - History of Present Illness Initial comments: This is a 43-year-old female with a constellation of symptoms which she states is consistent with SVC syndrome as she has had it in the past. She is noticed a prominence of the veins in her right chest, hoarse voice, tingling in her face, sore throat, right neck swelling. Apparently her insurance has . He does appear she was scheduled to have a skilled laborer procedure on 11/25/2018. In September she had the following further procedure: Operative Report: EXAM: 1. Ultrasound guided access of the right common femoral vein 2. Selection of the SVC from the femoral approach with angiography 3. Selection of the right internal jugular vein from a femoral approach with angiography 4. Selection of the left innominate and subclavian vein from a femoral approach with angiography 5. Ultrasound guided access of the right internal jugular vein 6. Fluoroscopic guided placement of the 16/13 [place] sheath in the right internal jugular vein 7. [place] thrombectomy of the SVC with multiple passes 8. Angioplasty of the lower right internal jugular vein and SVC with a 12 mm x 6 cm angioplasty balloon 9. Angioplasty of the left subclavian vein with a 9 mm x 60 mm angioplasty balloon 10. Angioplasty of the left innominate vein with a 12 mm x 6 cm angioplasty balloon 11. Angioplasty of the SVC with a 14 mm x 4 cm angioplasty balloon -: Gradual, week(s) Location: head, face, neck Radiation: non-radiation Quality: other (tingling pins and needles) Consistency: intermittent Improves with: none Worsens with: none Associated Symptoms: other (as above) - Related Data Previous Rx's Medication Instructions Recorded Last Taken Type HYDROcodone/APAP 5-325 [[place] 1 each PO BID PRN #10 tablet 04/15/18 10/12/18 Rx 5-325 mg TAB] 1 tab Enoxaparin [Lovenox] 80 mg SUB-Q Q12HR #30 syringe 06/14/18 10/21/18 Rx Ondansetron [Zofran ODT TAB] 4 mg PO Q4HR PRN #20 tab.rapdis 10/11/18 10/12/18 Rx 4mg Diphenoxylate/Atropine [Lomotil] 2 tab PO QID PRN #20 tablet 10/21/18 Unknown Rx HYDROcodone/APAP 5-325 [[place] 1 - 2 each PO Q6HR PRN #10 tablet 10/21/18 Unknown Rx 5/325] Ondansetron [Zofran ODT TAB] 8 mg PO Q8HR #20 tab.rapdis 10/21/18 Unknown Rx Allergies Allergy/AdvReac Type Severity Reaction Status Date / Time dexamethasone [From Decadron] Allergy Angioedema Verified 10/21/18 20:14 diazepam [From Valium] Allergy Angioedema Verified 10/21/18 20:14 ketorolac [From Toradol] Allergy Swelling Verified 10/11/18 17:37 metoclopramide [From Reglan] Allergy Unknown Verified 10/11/18 17:37 Penicillins Allergy Swelling Verified 10/11/18 17:37 prochlorperazine Allergy Unknown Verified 10/11/18 17:37 [From Compazine] promethazine [From Phenergan] Allergy Swelling Verified 10/11/18 17:37 tramadol Allergy Swelling Verified 10/11/18 17:37 adhesive tape AdvReac Itching Verified 10/11/18 17:37 fentanyl AdvReac Dizziness Verified 10/21/18 20:13 Apple Allergy Swelling Uncoded 06/09/18 15:36 Sour cream Allergy Swelling Uncoded 06/09/18 15:36 Whip cream Allergy Swelling Uncoded 06/09/18 15:36 ED Review of Systems ROS: Stated complaint: SORE THROAT Other details as noted in HPI Constitutional: denies: chills, fever Eyes: denies: eye pain, eye discharge, vision change ENT: as per HPI. denies: ear pain, throat pain Respiratory: denies: cough, shortness of breath, wheezing Cardiovascular: denies: chest pain, palpitations Endocrine: no symptoms reported Gastrointestinal: denies: abdominal pain, nausea, diarrhea Genitourinary: denies: urgency, dysuria, discharge Musculoskeletal: denies: back pain, joint swelling, arthralgia Skin: denies: rash, lesions Neurological: denies: headache, weakness, paresthesias Psychiatric: denies: anxiety, depression Hematological/Lymphatic: denies: easy bleeding, easy bruising ED Past Medical Hx - Past Medical History Hx Hypertension: No Hx Heart Attack/AMI: No Hx Diabetes: Yes Hx Deep Vein Thrombosis: Yes Hx GERD: Yes Hx Liver Disease: No Hx Renal Disease: No Hx Sickle Cell Disease: No Hx Seizures: No Hx Asthma: No Hx HIV: No Additional medical history: Gastroparesis, Unable to eat or drink on TPN 18 hours a day and IVF 2 hours a day, REBEL Button, SEPSIS. hypoglycemia////G-tube and J-tube. SVC Syndrome - Surgical History Hx Pacemaker: No Hx Internal Defibrillator: No Hx Cholecystectomy: Yes Hx Breast Surgery: (yes, augmentation) Additional Surgical History: Infusaport left chest wall. G-tube(2016) and J- tube(2017), Hysterectomy. Breast augmentation, PICC line. Inferior Vena Cava Implant - Social History Smoking Status: Former Smoker Substance Use Type: None - Medications Home Medications: Home Medications Medication Instructions Recorded Confirmed Last Taken Type HYDROcodone/APAP 5-325 [[place] 1 each PO BID PRN #10 tablet 04/15/18 10/13/18 10/12/18 Rx 5-325 mg TAB] 1 tab Enoxaparin [Lovenox] 80 mg SUB-Q Q12HR #30 syringe 06/14/18 10/13/18 10/21/18 Rx Ondansetron [Zofran ODT TAB] 4 mg PO Q4HR PRN #20 tab.rapdis 10/11/18 10/13/18 10/12/18 Rx 4mg Diphenoxylate/Atropine [Lomotil] 2 tab PO QID PRN #20 tablet 10/21/18 Unknown Rx HYDROcodone/APAP 5-325 [[place] 1 - 2 each PO Q6HR PRN #10 tablet 10/21/18 Unknown Rx 5/325] Ondansetron [Zofran ODT TAB] 8 mg PO Q8HR #20 tab.rapdis 10/21/18 Unknown Rx ED Physical Exam - General Limitations: No Limitations General appearance: alert, in no apparent distress - Head Head exam: Present: normocephalic, other (alopecia/shaved) - Eye Eye exam: Present: normal appearance, other (mild facial and lip edema). Absent: scleral icterus - ENT ENT exam: Present: normal orophraynx, mucous membranes moist, other (slight dysphonia noted) - Neck Neck exam: Present: normal inspection, other (somewhat swollen neck right gr eater than left, cannot see jugular venous pulse). Absent: tenderness, meningismus - Respiratory Respiratory exam: Present: normal lung sounds bilaterally. Absent: respiratory distress - Cardiovascular Cardiovascular Exam: Present: regular rate, normal rhythm. Absent: systolic murmur, diastolic murmur, rubs, gallop - GI/Abdominal GI/Abdominal exam: Present: soft, normal bowel sounds. Absent: distended, tenderness, guarding, rebound - Extremities Exam Extremities exam: Present: normal inspection. Absent: calf tenderness - Back Exam Back exam: Present: normal inspection - Neurological Exam Neurological exam: Present: alert, oriented X3, CN II-XII intact. Absent: motor sensory deficit - Psychiatric Psychiatric exam: Present: normal affect, normal mood - Skin Skin exam: Present: warm, dry, intact, other (prominent chest wall veins noted on the right). Absent: rash ED Course Vital Signs 12/07/18 15:19 Temperature 98.1 F Pulse Rate 96 H Respiratory 18 Rate Blood Pressure 112/78 O2 Sat by Pulse 99 Oximetry - Reevaluation(s) Reevaluation #1: Discussed with Dr. Lizandro Messer. They've been consultative. Patient to be admitted by Dr. Farris further care and evaluation. She is compliant with her Lovenox. I presume this to be continued. She appears to be clinically stable at this time. 12/07/18 17:01 12/07/18 17:01 ED Medical Decision Making - Lab Data Result diagrams: 12/07/18 15:34 12/07/18 15:34 Laboratory Results - last 24 hr 12/07/18 12/07/18 15:34 15:34 WBC 7.2 RBC 4.16 Hgb 13.2 Hct 38.5 MCV 93 MCH 32 MCHC 34 RDW 13.5 Plt Count 279 Lymph % (Auto) 33.9 [place] % (Auto) 5.1 Eos % (Auto) 0.0 Baso % (Auto) 1.5 Lymph # 2.4 [place] # 0.4 Eos # 0.0 Baso # 0.1 Seg Neutrophils % 59.5 Seg Neutrophils # 4.3 Sodium 137 Potassium 4.4 Chloride 99.2 Carbon Dioxide 26 Anion Gap 16 BUN 10 Creatinine 0.9 Estimated GFR > 60 BUN/Creatinine Ratio 11 Glucose 82 Calcium 9.9 Total Bilirubin 0.20 AST 12 ALT 16 Alkaline Phosphatase 85 Total Protein 7.9 Albumin 4.7 Albumin/Globulin Ratio 1.5 Critical care attestation.: If time is entered above; I have spent that time in minutes in the direct care of this critically ill patient, excluding procedure time. ED Disposition Clinical Impression: Superior vena cava syndrome Disposition: OP ADMIT IP TO THIS HOSP Is pt being admited?: Yes Does the pt Need Aspirin: Yes Condition: Stable Time of Disposition: 17:02
[2018-12-07] MEDS ORDERED: NORCO 5/325 PO ONE (17:19)
[2018-12-07 17:27] LABS: INR 0.93 (0.87-1.13)
[2018-12-07] MEDS ORDERED: NORCO PO ONE (17:43)
--- NOTE | 2018-12-07 17:51 | XRay Report ---
CHEST 1 VIEW INDICATION: hypertension. COMPARISON: 07/14/2018 FINDINGS: Support devices: None. Heart: Within normal limits. Lungs/Pleura: No acute air space or interstitial disease. Additional findings: None. IMPRESSION: 1. No acute findings. 2. Two separate rounded radiopacities over the upper midline chest--please correlate. Signer Name: Bart Justice MD Signed: 12/07/2018 5:46 PM Workstation Name: [id number]
[2018-12-07] MEDS ORDERED: NORCO ONE (17:55)
[2018-12-07] MEDS ORDERED: SODIUM CHLORIDE FLUSH SYRINGE 10 ML IV PRN (21:09)
[2018-12-07] MEDS ORDERED: TYLENOL PO PRN (21:09)
[2018-12-07] MEDS ORDERED: ZOFRAN IV PRN (21:09)
--- NOTE | 2018-12-07 21:09 | History and Physical Report ---
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 Going on for 3 days .Also some shortness of breath. Also some chest pain on the right side. Patient was supposed to have cath Procedure on November 25 which could not be done. Patient has a G-tube and J-tube for nutrition. Operative Report: EXAM: 1. Ultrasound guided access of the right common femoral vein 2. Selection of the SVC from the femoral approach with angiography 3. Selection of the right internal jugular vein from a femoral approach with angiography 4. Selection of the left innominate and subclavian vein from a femoral approach with angiography 5. Ultrasound guided access of the right internal jugular vein 6. Fluoroscopic guided placement of the 16/13 Clottriever sheath in the right internal jugular vein 7. Clottriever thrombectomy of the SVC with multiple passes 8. Angioplasty of the lower right internal jugular vein and SVC with a 12 mm x 6 cm angioplasty balloon 9. Angioplasty of the left subclavian vein with a 9 mm x 60 mm angioplasty balloon 10. Angioplasty of the left innominate vein with a 12 mm x 6 cm angioplasty b alloon 11. Angioplasty of the SVC with a 14 mm x 4 cm angioplasty balloon Past Medical History Diabetes: Yes Deep Vein Thrombosis: Yes GERD: Yes Additional medical history: Gastroparesis, Unable to eat or drink on TPN 18 hours a day and IVF 2 hours a day, REBEL Button, SEPSIS. hypoglycemia////G-tube and J-tube. SVC Syndrome Surgical History Cholecystectomy: Yes Breast Surgery: (yes, augmentation) Additional Surgical History: Infusaport left chest wall. G-tube(2016) and J- tube(2017), Hysterectomy. Breast augmentation, PICC line. Inferior Vena Cava Implant Social History Smoking Status: Former Smoker Substance Use Type: None Family history Htn Medications Home Medications: Home Medications Medication Instructions Recorded Confirmed Last Taken Type HYDROcodone/APAP 5-325 [[place] 1 each PO BID PRN #10 tablet 04/15/18 10/13/18 10/12/18 Rx 5-325 mg TAB] 1 tab Enoxaparin [Lovenox] 80 mg SUB-Q Q12HR #30 syringe 06/14/18 10/13/18 10/21/18 Rx Ondansetron [Zofran ODT TAB] 4 mg PO Q4HR PRN #20 tab.rapdis 10/11/18 10/13/18 10/12/18 Rx 4mg Diphenoxylate/Atropine [Lomotil] 2 tab PO QID PRN #20 tablet 10/21/18 Unknown Rx HYDROcodone/APAP 5-325 [[place] 1 - 2 each PO Q6HR PRN #10 tablet 10/21/18 Unknown Rx 5/325] Ondansetron [Zofran ODT TAB] 8 mg PO Q8HR #20 tab.rapdis 10/21/18 Unknown Rx Review of Systems ROS: Stated complaint: SORE THROAT Other details as noted in HPI Constitutional: denies: chills, fever Eyes: denies: eye pain, eye discharge, vision change ENT: as per HPI. denies: ear pain, throat pain Respiratory: denies: cough, shortness of breath, wheezing Cardiovascular: denies: chest pain, palpitations Endocrine: no symptoms reported Gastrointestinal: denies: abdominal pain, nausea, diarrhea Genitourinary: denies: urgency, dysuria, discharge Musculoskeletal: denies: back pain, joint swelling, arthralgia Skin: denies: rash, lesions Neurological: denies: headache, weakness, paresthesias Psychiatric: denies: anxiety, depression Hematological/Lymphatic: denies: easy bleeding, easy bruising Medications and Allergies Allergies Allergy/AdvReac Type Severity Reaction Status Date / Time dexamethasone [From Decadron] Allergy Angioedema Verified 10/21/18 20:14 diazepam [From Valium] Allergy Angioedema Verified 10/21/18 20:14 ketorolac [From Toradol] Allergy Swelling Verified 10/11/18 17:37 metoclopramide [From Reglan] Allergy Unknown Verified 10/11/18 17:37 Penicillins Allergy Swelling Verified 10/11/18 17:37 prochlorperazine Allergy Unknown Verified 10/11/18 17:37 [From Compazine] promethazine [From Phenergan] Allergy Swelling Verified 10/11/18 17:37 tramadol Allergy Swelling Verified 10/11/18 17:37 adhesive tape AdvReac Itching Verified 10/11/18 17:37 fentanyl AdvReac Dizziness Verified 10/21/18 20:13 Apple Allergy Swelling Uncoded 06/09/18 15:36 Sour cream Allergy Swelling Uncoded 06/09/18 15:36 Whip cream Allergy Swelling Uncoded 06/09/18 15:36 Home Medications Medication Instructions Recorded Confirmed Last Taken Type HYDROcodone/APAP 5-325 [[place] 1 each PO BID PRN #10 tablet 04/15/18 10/13/18 10/12/18 Rx 5-325 mg TAB] 1 tab Enoxaparin [Lovenox] 80 mg SUB-Q Q12HR #30 syringe 06/14/18 12/07/18 12/07/18 09:00 Rx Ondansetron [Zofran ODT TAB] 4 mg PO Q4HR PRN #20 tab.rapdis 10/11/18 10/13/18 10/12/18 Rx 4mg Diphenoxylate/Atropine [Lomotil] 2 tab PO QID PRN #20 tablet 10/21/18 Unknown Rx HYDROcodone/APAP 5-325 [[place] 1 - 2 each PO Q6HR PRN #10 tablet 10/21/18 12/07/18 Unknown Rx 5/325] Ondansetron [Zofran ODT TAB] 8 mg PO Q8HR #20 tab.rapdis 10/21/18 Unknown Rx Exam - Constitutional Vitals: Temp Pulse Resp BP Pulse Ox 98.1 F 83 16 110/61 98 12/07/18 15:19 12/07/18 18:55 12/07/18 18:55 12/07/18 18:55 12/07/18 18:55 General appearance: Present: no acute distress, well-nourished - EENT Eyes: Present: PERRL ENT: hearing intact, clear oral mucosa - Neck Neck: Present: supple, normal ROM, other (right neck swelling) - Respiratory Respiratory effort: normal Respiratory: right: other (right chest superficial veins prominent), bilateral: CTA - Cardiovascular Heart rate: 78 Rhythm: regular Heart Sounds: Present: S1 & S2. Absent: rub, click - Extremities Extremities: no ischemia, pulses intact, pulses symmetrical, No edema Peripheral Pulses: within normal limits - Abdominal General gastrointestinal: Present: soft, non-tender, non-distended, normal bowel sounds, other (J-tube and G-tube in place) Female genitourinary: Present: normal - Integumentary Integumentary: Present: clear, warm, dry - Musculoskeletal Musculoskeletal: gait normal, strength equal bilaterally - Psychiatric Psychiatric: appropriate mood/affect, intact judgment & insight - Neurologic Neurologic: CNII-XII intact, moves all extremities - Allied Health Allied health notes reviewed: nursing, case management Results - Labs CBC & Chem 7: 12/07/18 15:34 12/07/18 15:34 Labs: Laboratory Last Values WBC 7.2 K/mm3 (4.5-11.0) 12/07/18 15:34 RBC 4.16 M/mm3 (3.65-5.03) 12/07/18 15:34 Hgb 13.2 gm/dl (10.1-14.3) 12/07/18 15:34 Hct 38.5 % (30.3-42.9) 12/07/18 15:34 MCV 93 fl (79-97) 12/07/18 15:34 MCH 32 pg (28-32) 12/07/18 15:34 MCHC 34 % (30-34) 12/07/18 15:34 RDW 13.5 % (13.2-15.2) 12/07/18 15:34 Plt Count 279 K/mm3 (140-440) 12/07/18 15:34 Lymph % (Auto) 33.9 % (13.4-35.0) 12/07/18 15:34 [place] % (Auto) 5.1 % (0.0-7.3) 12/07/18 15:34 Eos % (Auto) 0.0 % (0.0-4.3) 12/07/18 15:34 Baso % (Auto) 1.5 % (0.0-1.8) 12/07/18 15:34 Lymph # 2.4 K/mm3 (1.2-5.4) 12/07/18 15:34 [place] # 0.4 K/mm3 (0.0-0.8) 12/07/18 15:34 Eos # 0.0 K/mm3 (0.0-0.4) 12/07/18 15:34 Baso # 0.1 K/mm3 (0.0-0.1) 12/07/18 15:34 Seg Neutrophils % 59.5 % (40.0-70.0) 12/07/18 15:34 Seg Neutrophils # 4.3 K/mm3 (1.8-7.7) 12/07/18 15:34 PT 12.2 Sec. (12.2-14.9) 12/07/18 16:53 INR 0.93 (0.87-1.13) 12/07/18 16:53 APTT 34.0 Sec. (24.2-36.6) 12/07/18 16:53 < 135.0 ng/mlDDU (0-234) 12/07/18 16:53 Sodium 137 mmol/L (137-145) 12/07/18 15:34 Potassium 4.4 mmol/L (3.6-5.0) 12/07/18 15:34 Chloride 99.2 mmol/L (98-107) 12/07/18 15:34 Carbon Dioxide 26 mmol/L (22-30) 12/07/18 15:34 16 mmol/L 12/07/18 15:34 BUN 10 mg/dL (7-17) 12/07/18 15:34 0.9 mg/dL (0.7-1.2) 12/07/18 15:34 Estimated GFR > 60 ml/min 12/07/18 15:34 11 % 12/07/18 15:34 Glucose 82 mg/dL (65-100) 12/07/18 15:34 POC Glucose 100 (70-105) 12/07/18 19:02 Calcium 9.9 mg/dL (8.4-10.2) 12/07/18 15:34 0.20 mg/dL (0.1-1.2) 12/07/18 15:34 AST 12 units/L (5-40) 12/07/18 15:34 ALT 16 units/L (7-56) 12/07/18 15:34 85 units/L (35-129) 12/07/18 15:34 NT-Pro-B Natriuret Pep 11.09 pg/mL (0-450) 12/07/18 16:53 7.9 g/dL (6.3-8.2) 12/07/18 15:34 4.7 g/dL (3.9-5) 12/07/18 15:34 1.5 % 12/07/18 15:34 Short CBC 12/07/18 Range/Units 15:34 WBC 7.2 (4.5-11.0) K/mm3 Hgb 13.2 (10.1-14.3) gm/dl Hct 38.5 (30.3-42.9) % Plt Count 279 (140-440) K/mm3 BMP 12/07/18 15:34 Sodium 137 Potassium 4.4 Chloride 99.2 Carbon Dioxide 26 BUN 10 Creatinine 0.9 Glucose 82 Calcium 9.9 Liver Function 12/07/18 Range/Units 15:34 Total Bilirubin 0.20 (0.1-1.2) mg/dL AST 12 (5-40) units/L ALT 16 (7-56) units/L Alkaline Phosphatase 85 (35-129) units/L Albumin 4.7 (3.9-5) g/dL - Imaging and Cardiology Chest x-ray: report reviewed (no acute findings, 2 rounded opacities in the retrosternal area) Assessment and Plan Advance Directives: Yes (full code) VTE prophylaxis?: Chemical Plan of care discussed with patient/family: Yes - Patient Problems (1) Superior vena cava syndrome Current Visit: Yes Status: Chronic Plan to address problem: Vascular surgery consult requested Patient may need cath Procedure (2) Gastroparesis Current Visit: Yes Status: Chronic Plan to address problem: Patient on J-tube feeding Continue same (3) Anticoagulation goal of INR 1.5 to 2.5 Current Visit: Yes Status: Chronic Plan to address problem: continue Lovenox 80 mg subcutaneous every 12 (4) Type 2 diabetes mellitus Current Visit: Yes Status: Chronic Qualifiers: Diabetes mellitus mcc insulin 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
[2018-12-07] MEDS ORDERED: PERCOCET 5/325 PO PRN (21:10)
[2018-12-07] MEDS ORDERED: REGLAN IV PRN (21:10)
[2018-12-07] MEDS ORDERED: LOMOTIL PO PRN (21:12)
[2018-12-07] MEDS ORDERED: ZOFRAN ODT PO PRN (21:12)
[2018-12-07] MEDS: DILAUDID IV PRN (21:42)
[2018-12-07] MEDS: NACL 0.9% 1000 ML 1,000 ML IV SCH (21:49)
[2018-12-07] MEDS: LOVENOX SUB-Q SCH (22:23)
[2018-12-07] MEDS: SODIUM CHLORIDE FLUSH SYRINGE 10 ML IV SCH (22:24)
[2018-12-07] MEDS ORDERED: PEPCID IV ONE (22:30)
[2018-12-07] MEDS: PEPCID IV SCH (22:34)
[2018-12-08] MEDS ORDERED: D50W (25GM) Syringe IV PRN (00:52)
[2018-12-08] MEDS ORDERED: D50W (25GM) Syringe IV ONE (01:36)
[2018-12-08] MEDS: DILAUDID IV PRN ×7 (01:50→23:02)
[2018-12-08 05:27] LABS: Basophils # (Auto) 0.1 K/mm3 (0.0-0.1); Basophils % (Auto) 1.1 % (0.0-1.8); Hematocrit 38.2 % (30.3-42.9); Hemoglobin 13.1 gm/dl (10.1-14.3); Lymphocytes # (Auto) 2.4 K/mm3 (1.2-5.4); Lymphocytes % (Auto) 38.3 % (13.4-35.0); Mean Corpuscular HGB Conc 34 % (30-34); Mean Corpuscular Volume 91 fl (79-97); Monocytes # (Auto) 0.5 K/mm3 (0.0-0.8); Monocytes % (Auto) 7.6 % (0.0-7.3); Platelet Count 201 K/mm3 (140-440); Red Cell Distribution Width 13.4 % (13.2-15.2)
[2018-12-08 05:38] LABS: Alanine Aminotransferase 14 units/L (7-56); Albumin 4.1 g/dL (3.9-5); BUN/Creatinine Ratio 13; Blood Urea Nitrogen 9 mg/dL (7-17); Calcium 9.2 mg/dL (8.4-10.2); Hemolysis Index 31
[2018-12-08] MEDS: ZOFRAN IV PRN ×3 (06:55→23:03)
--- NOTE | 2018-12-08 10:05 | Consultation ---
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 Also has chronic hypoglycemia. 3 days .Also some shortness of breath. Also some chest pain on the right side. Patient was supposed to have cath Procedure on November 25 which could not be done. Patient has a G-tube and J-tube for nutrition. Vascular consulted. Patient has mild head and neck right sided swelling and right arm and breast swelling. Has chronic hypoglycemia. Past History Past Medical History: other (gastroparesis, hypoglycemia, dumping syndrome, multiple catheter induced svc syndrome) Past Surgical History: cholecystectomy, hysterectomy, bowel surgery, Other (G and J tube ; breast augmentation ; ) Social history: no significant social history Family history: no significant family history Medications and Allergies Allergies Allergy/AdvReac Type Severity Reaction Status Date / Time dexamethasone [From Decadron] Allergy Angioedema Verified 10/21/18 20:14 diazepam [From Valium] Allergy Angioedema Verified 10/21/18 20:14 ketorolac [From Toradol] Allergy Swelling Verified 10/11/18 17:37 metoclopramide [From Reglan] Allergy Unknown Verified 10/11/18 17:37 Penicillins Allergy Swelling Verified 10/11/18 17:37 prochlorperazine Allergy Unknown Verified 10/11/18 17:37 [From Compazine] promethazine [From Phenergan] Allergy Swelling Verified 10/11/18 17:37 tramadol Allergy Swelling Verified 10/11/18 17:37 adhesive tape AdvReac Itching Verified 10/11/18 17:37 fentanyl AdvReac Dizziness Verified 10/21/18 20:13 Apple Allergy Swelling Uncoded 06/09/18 15:36 Sour cream Allergy Swelling Uncoded 06/09/18 15:36 Whip cream Allergy Swelling Uncoded 06/09/18 15:36 Home Medications Medication Instructions Recorded Confirmed Last Taken Type HYDROcodone/APAP 5-325 [[place] 1 each PO BID PRN #10 tablet 04/15/18 12/07/18 10/12/18 Rx 5-325 mg TAB] 1 tab Enoxaparin [Lovenox] 80 mg SUB-Q Q12HR #30 syringe 06/14/18 12/07/18 12/07/18 09:00 Rx HYDROcodone/APAP 5-325 [[place] 1 - 2 each PO Q6HR PRN #10 tablet 10/21/18 12/07/18 Unknown Rx 5/325] Quetiapine Fumarate [SEROquel] 400 mg PO HS 12/07/18 12/07/18 Unknown History Active Meds: Active Medications Acetaminophen (Tylenol) 650 mg PO Q4H PRN PRN Reason: Pain MILD(1-3)/Fever >100.5/GONZALEZ Dextrose (D50w (25gm) Syringe) 50 ml IV PRN PRN PRN Reason: Hypoglycemia Diphenhydramine HCl (Benadryl) 25 mg IV Q6H PRN PRN Reason: Itching Diphenoxylate HCl/Atropine (Lomotil) 2 tab PO QID PRN PRN Reason: Diarrhea Enoxaparin Sodium (Lovenox) 80 mg SUB-Q Q12HR [facility] Last Admin: 12/07/18 22:23 Dose: 80 mg Documented by: Famotidine (Pepcid) 20 mg IV BID [facility] Last Admin: 12/07/18 22:34 Dose: 20 mg Documented by: Hydromorphone HCl (Dilaudid) 1 mg IV Q3H PRN PRN Reason: Pain , Severe (7-10) Last Admin: 12/08/18 06:55 Dose: 1 mg Documented by: Sodium Chloride (Nacl 0.9% 1000 Ml) 1,000 mls @ 75 mls/hr IV DIRECT [facility] Stop: 12/08/18 11:00 Last Admin: 12/07/18 21:49 Dose: 75 mls/hr Documented by: Ondansetron HCl (Zofran Odt) 4 mg PO Q4HR PRN PRN Reason: Nausea Ondansetron HCl (Zofran) 4 mg IV Q6H PRN PRN Reason: Nausea And Vomiting Last Admin: 12/08/18 06:55 Dose: 4 mg Documented by: Oxycodone/Acetaminophen (Percocet 5/325) 1 tab PO Q6H PRN PRN Reason: Pain, Moderate (4-6) Sodium Chloride (Sodium Chloride Flush Syringe 10 Ml) 10 ml IV BID HERI Last Admin: 12/07/18 22:24 Dose: 10 ml Documented by: Sodium Chloride (Sodium Chloride Flush Syringe 10 Ml) 10 ml IV PRN PRN PRN Reason: LINE FLUSH Review of Systems All systems: negative (see HPI) Exam - Constitutional Vitals: Temp Pulse Resp BP Pulse Ox 98.4 F 86 18 102/65 99 12/08/18 01:06 12/08/18 01:00 12/08/18 06:55 12/08/18 04:52 12/08/18 00:41 General appearance: Present: no acute distress - EENT Eyes: Present: EOM intact ENT: other (mild swelling face) - Neck Neck: Present: other (mild swelling neck) - Respiratory Respiratory effort: normal - Extremities Extremities: normal temperature, normal color Extremity abnormal: edema (RUE and breast) Peripheral Pulses: within normal limits - Abdominal General gastrointestinal: Present: other (G and J tube) - Psychiatric Psychiatric: appropriate mood/affect, cooperative Results - Labs CBC & Chem 7: 12/08/18 04:35 12/08/18 04:35 Labs: Abnormal lab results 12/08/18 Range/Units 04:35 Lymph % (Auto) 38.3 H (13.4-35.0) % [place] % (Auto) 7.6 H (0.0-7.3) % Assessment and Plan 43-year-old female with multiple medical issues including gastroparesis and multiple TPN lines with outpatient evaluation for dumping syndrome which has been refractory to multiple changes in J-tube 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 Patient is partially symptomatic of SVC syndrome, but I believe many of her symptoms are due to symptomatic hypoglycemia. Hypoglycemia has been refractory to changes in J-tube feeds. Patient understands risk of septicemia from line infections. Risks, benefits, and alternatives discussed. Plan will be for angioplasty of the SVC and possibly the right subclavian vein and innominate vein. Plan for Ramirez placement.
[2018-12-08] MEDS: LOVENOX SUB-Q SCH ×2 (10:08→23:02)
--- NOTE | 2018-12-08 10:11 | Progress Note ---
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 Going on for 3 days .Also some sh ortness of breath. Also some chest pain on the right side. Patient was supposed to have cath Procedure on November 25 which could not be done. Patient has a G-tube and J-tube for nutrition. Ultrasound study * Clottriever thrombectomy of the SVC with multiple passes * Angioplasty of the lower right internal jugular vein and SVC, left subclavian vein, left innominate vein, SVC with a 14 mm x 4 cm angioplasty balloon CXR * Concerning for two rounded opacities Superior Vena Cava Syndrome Gastroparesis Secondary Coagulopathy Type 2 DM Right Neck Pain Headache Chronic Pain syndrome Hx:Gastroparesis, Hx OF Recurrent SEPSIS. hX OF hypoglycemia/ Hx of G-tube and J-tube. Plan Continue supportive care Vascular consulted noted, plan for Ramirez catheter replacement Continue J-tube feeding Continue pain control Recommend outpatient Hematology and Rheumatology eval Continue Lovenox 80 mg subcutaneous every 12 Continue coverage with insulin Check hemoglobin A1c DVT/GI prophy Plan discussed with patient and Nursing staff. History Interval history: Patient seen and examined, Resting, reports 3/10 headache, not worse headache of life, no blurry vision. Hospitalist Physical - Physical exam Narrative exam: General appearance: Present: mild distress, well-nourished - EENT Eyes: Present: PERRL ENT: hearing intact, clear oral mucosa - Neck Neck: Present: supple, normal ROM, other (right neck swelling) - Respiratory Respiratory effort: normal Respiratory: right: other (right chest superficial veins prominent), bilateral: CTA - Cardiovascular Heart rate: 78 Rhythm: regular Heart Sounds: Present: S1 & S2. Absent: rub, click - Extremities Extremities: no ischemia, pulses intact, pulses symmetrical, No edema Peripheral Pulses: within normal limits - Abdominal General gastrointestinal: Present: soft, non-tender, non-distended, normal bowel sounds, other (J-tube and G-tube in place) Female genitourinary: Present: normal - Integumentary Integumentary: Present: clear, warm, dry - Musculoskeletal Musculoskeletal: gait normal, strength equal bilaterally - Psychiatric Psychiatric: appropriate mood/affect, intact judgment & insight - Neurologic Neurologic: CNII-XII intact, moves all extremities - Allied Health Allied health notes reviewed: nursing, case management - Constitutional Vitals: Temp Pulse Resp BP Pulse Ox 98.4 F 86 18 102/65 99 12/08/18 01:06 12/08/18 01:00 12/08/18 06:55 12/08/18 04:52 12/08/18 00:41 General appearance: Present: no acute distress, well-nourished Results - Labs CBC & Chem 7: 12/08/18 04:35 12/08/18 04:35 Labs: Laboratory Last Values WBC 6.2 K/mm3 (4.5-11.0) 12/08/18 04:35 RBC 4.20 M/mm3 (3.65-5.03) 12/08/18 04:35 Hgb 13.1 gm/dl (10.1-14.3) 12/08/18 04:35 Hct 38.2 % (30.3-42.9) 12/08/18 04:35 MCV 91 fl (79-97) 12/08/18 04:35 MCH 31 pg (28-32) 12/08/18 04:35 MCHC 34 % (30-34) 12/08/18 04:35 RDW 13.4 % (13.2-15.2) 12/08/18 04:35 Plt Count 201 K/mm3 (140-440) 12/08/18 04:35 Lymph % (Auto) 38.3 % (13.4-35.0) H 12/08/18 04:35 [place] % (Auto) 7.6 % (0.0-7.3) H 12/08/18 04:35 Eos % (Auto) 0.0 % (0.0-4.3) 12/08/18 04:35 Baso % (Auto) 1.1 % (0.0-1.8) 12/08/18 04:35 Lymph # 2.4 K/mm3 (1.2-5.4) 12/08/18 04:35 [place] # 0.5 K/mm3 (0.0-0.8) 12/08/18 04:35 Eos # 0.0 K/mm3 (0.0-0.4) 12/08/18 04:35 Baso # 0.1 K/mm3 (0.0-0.1) 12/08/18 04:35 Seg Neutrophils % 53.0 % (40.0-70.0) 12/08/18 04:35 Seg Neutrophils # 3.3 K/mm3 (1.8-7.7) 12/08/18 04:35 PT 12.2 Sec. (12.2-14.9) 12/07/18 16:53 INR 0.93 (0.87-1.13) 12/07/18 16:53 APTT 34.0 Sec. (24.2-36.6) 12/07/18 16:53 < 135.0 ng/mlDDU (0-234) 12/07/18 16:53 Sodium 140 mmol/L (137-145) 12/08/18 04:35 Potassium 3.9 mmol/L (3.6-5.0) 12/08/18 04:35 Chloride 104.5 mmol/L (98-107) 12/08/18 04:35 Carbon Dioxide 22 mmol/L (22-30) 12/08/18 04:35 17 mmol/L 12/08/18 04:35 BUN 9 mg/dL (7-17) 12/08/18 04:35 0.7 mg/dL (0.7-1.2) 12/08/18 04:35 Estimated GFR > 60 ml/min 12/08/18 04:35 13 % 12/08/18 04:35 Glucose 93 mg/dL (65-100) 12/08/18 04:35 POC Glucose 99 (70-105) 12/08/18 04:57 5.7 % (4-6) 12/07/18 15:34 Calcium 9.2 mg/dL (8.4-10.2) 12/08/18 04:35 < 0.20 mg/dL (0.1-1.2) 12/08/18 04:35 AST 13 units/L (5-40) 12/08/18 04:35 ALT 14 units/L (7-56) 12/08/18 04:35 77 units/L (35-129) 12/08/18 04:35 NT-Pro-B Natriuret Pep 11.09 pg/mL (0-450) 12/07/18 16:53 6.9 g/dL (6.3-8.2) 12/08/18 04:35 4.1 g/dL (3.9-5) 12/08/18 04:35 1.5 % 12/08/18 04:35 Active Medications - Current Medications Current Medications: Generic Name Dose Route Start Last Admin Trade Name Freq PRN Reason Stop Dose Admin Acetaminophen 650 mg 12/07/18 21:09 Tylenol PO Q4H PRN Pain MILD(1-3)/Fever >100.5/GONZALEZ Dextrose 50 ml 12/08/18 00:52 D50w (25gm) Syringe IV PRN PRN Hypoglycemia Diphenhydramine HCl 25 mg 12/08/18 01:32 Benadryl IV Q6H PRN Itching Diphenoxylate HCl/Atropine 2 tab 12/07/18 21:12 Lomotil PO QID PRN Diarrhea Enoxaparin Sodium 80 mg 12/07/18 22:00 12/08/18 10:08 Lovenox SUB-Q Not Given Q12HR HERI Famotidine 20 mg 12/07/18 22:00 12/07/18 22:34 Pepcid IV 20 mg BID HERI Administration Hydromorphone HCl 1 mg 12/07/18 21:10 12/08/18 06:55 Dilaudid IV 1 mg Q3H PRN Administration Pain , Severe (7-10) Sodium Chloride 1,000 mls @ 75 mls/hr 12/07/18 22:00 12/07/18 21:49 Nacl 0.9% 1000 Ml IV 12/08/18 11:00 75 mls/hr DIRECT HERI Administration Ondansetron HCl 4 mg 12/07/18 21:12 Zofran Odt PO Q4HR PRN Nausea Ondansetron HCl 4 mg 12/08/18 01:37 12/08/18 06:55 Zofran IV 4 mg Q6H PRN Administration Nausea And Vomiting Oxycodone/Acetaminophen 1 tab 12/07/18 21:10 Percocet 5/325 PO Q6H PRN Pain, Moderate (4-6) Sodium Chloride 10 ml 12/07/18 22:00 12/07/18 22:24 Sodium Chloride Flush Syringe 10 Ml IV 10 ml BID HERI Administration Sodium Chloride 10 ml 12/07/18 21:09 Sodium Chloride Flush Syringe 10 Ml IV PRN PRN LINE FLUSH
[2018-12-08] MEDS: PEPCID IV SCH ×2 (10:12→23:03)
[2018-12-08] MEDS: NACL 0.9% 1000 ML 1,000 ML IV SCH ×2 (10:13→13:28)
[2018-12-08] MEDS: SODIUM CHLORIDE FLUSH SYRINGE 10 ML IV SCH ×2 (10:13→23:04)
[2018-12-08] MEDS ORDERED: NORCO PO PRN (10:25)
[2018-12-08] MEDS ORDERED: NACL 0.9% 500 ML 500 ML ONE (12:50)
[2018-12-08] MEDS ORDERED: DIPRIVAN 10 MG/ML 1,000 MG/100 ML BOTTLE IV ONE (13:14)
[2018-12-08] MEDS ORDERED: HEPARIN/NS 5000 UNIT/500ML(CATH LAB) 1,000 ML IR ONE (13:27)
[2018-12-08] MEDS: XYLOCAINE 1%/ EPI 1:100,000 INFILTRATI ONE ×5 (13:28→14:53)
[2018-12-08] MEDS ORDERED: DOXYCYCLINE HYCLATE 200 MG in NACL 0.9% 250ML 250 ML IV ONE (14:00)
[2018-12-08] MEDS: HEPARIN 10,000 UNITS/10 ML ONE ×3 (14:01→15:06)
--- NOTE | 2018-12-08 15:23 | Operative Report ---
Operative Report Operative Report: EXAM: 1. Ultrasound guided access of the right common femoral vein 2. Ultrasound guided access of the right basilic vein 3. Venography of the right upper extremity 4. Selection of the right subclavian vein from the right arm approach with venography 5. Selection of the right upper lobe pulmonary artery from the femoral appraoch (PAPVR) with pulmonary angiography 6. Selection of the left subclavian and innominate vein and SVC with venography from a femoral approach 7. Angioplasty of the SVC with a 12 mm x 60 mm angioplasty balloon and 14 mm x 40 mm angioplasty balloon 8. Ultrasound guided access of the right internal jugular vein 9. Fluoroscopic guided placement of a tunneled cuffed single lumen Ramirez catheter DATE: 12/08/18 [employer] SUPERVISOR: MAURICIO SOTO MD INDICATION: SVC syndrome, gastroparesis, chronic hypoglycemia, dumping syndrome. Patient has previously had multiple TPN catheters which resulted in SVC syndrome. After her last TPN catheter which became infected, her TPN catheters were removed. Unfortunately, due to her severe gastroparesis she developed chronic hypoglycemia secondary to dumping syndrome and now requires a new TPN catheter to be placed. 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 She now presents for treatment of her SVC syndrome, attempted recannulization of her right upper extremity, and a new TPN catheter. MEDICATIONS: Please see nursing report for full details. DEVICES: 12 mm x 60 mm angioplasty balloon 40 mm x 40 mm angioplasty balloon Single lumen Ramirez catheter CONTRAST: Please see cardiac catheterization technologist report for full details. ANESTHESIA: MAC PROCEDURE: The risks, benefits, and alternatives were discussed with the patient; written informed consent was obtained. FINDINGS: [ ] IMPRESSION: [ ]
--- NOTE | 2018-12-08 15:23 | Post Operative Note ---
Date of procedure: 12/08/18 Pre-op diagnosis: SVC syndrome and gastroparesis Post-op diagnosis: same Findings: Please do not use ramirez catheter while patient is an inpatient and use peripheral IVs Procedure: 1. Ultrasound guided access of the right common femoral vein 2. Ultrasound guided access of the right basilic vein 3. Venography of the right upper extremity 4. Selection of the right subclavian vein from the right arm approach with venography 5. Selection of the right upper lobe pulmonary artery from the femoral appraoch (PAPVR) with pulmonary angiography 6. Selection of the left subclavian and innominate vein and SVC with venography from a femoral approach 7. Angioplasty of the SVC with a 12 mm x 60 mm angioplasty balloon and 14 mm x 40 mm angioplasty balloon 8. Ultrasound guided access of the right internal jugular vein 9. Fluoroscopic guided placement of a tunneled cuffed single lumen Ramirez catheter Anesthesia: MAC Surgeon: MAURICIO SOTO Estimated blood loss: minimal Condition: stable Disposition: floor
[2018-12-08] MEDS ORDERED: DILAUDID ONE (16:03)
[2018-12-08] MEDS ORDERED: ZOFRAN ONE (16:09)
[2018-12-08] MEDS ORDERED: BENADRYL IV ONE (16:32)
[2018-12-08] MEDS ORDERED: PEPCID IV ONE (16:33)
[2018-12-08] MEDS ORDERED: BENADRYL ONE (16:33)
--- NOTE | 2018-12-08 17:58 | Anesthesia Consultation ---
Anesthesia Consult and Med Hx Date of service: 12/08/18 - Airway Anesthetic Teeth Evaluation: Good ROM Head & Neck: Adequate Mental/Hyoid Distance: Adequate Mallampati Class: Class II Intubation Access Assessment: Good - Pulmonary Exam CTA: Yes - Cardiac Exam Cardiac Exam: RRR - Pre-Operative Health Status ASA Pre-Surgery Classification: ASA3 Proposed Anesthetic Plan: General, MAC - Pulmonary Hx Smoking: No Hx Asthma: No Hx Respiratory Symptoms: No COPD: No - Cardiovascular System Hx Hypertension: No Hx Heart Attack/AMI: No Hx Percutaneous Transluminal Coronary Angioplasty (PTCA): No Hx Cardia Arrhythmia: No Hx Pacemaker: No Hx Internal Defibrillator: No Hx Peripheral Vascular Disease: Yes (right upper arm vein thrombosis) - Central Nervous System Hx Seizures: No CVA: No Hx Psychiatric Problems: No - Gastrointestinal Hx Gastroesophageal Reflux Disease: No (G-tube in-situ for gastroparesis) - Endocrine Hx Renal Disease: No Hx End Stage Renal Disease: No Hx Liver Disease: No Hx Non-Insulin Dependent Diabetes: Yes (occasional episodes hypoglycemia) Hx Thyroid Disease: No - Hematic Hx Anemia: Yes Hx Sickle Cell Disease: No - Other Systems Hx Cancer: No Hx Obesity: No
--- NOTE | 2018-12-08 17:59 | Anesthesia Day of Surgery ---
Anesthesia Day of Surgery - Day of Surgery Patient Examined: Yes Patient H&P Reviewed: Yes Patient is NPO: Yes
[2018-12-08] MEDS ORDERED: D5NS 1,000 ML IV SCH (19:00)
[2018-12-08] MEDS: BENADRYL IV PRN (23:03)
[2018-12-09] MEDS: DILAUDID IV PRN ×3 (01:23→08:51)
[2018-12-09] MEDS: ZOFRAN IV PRN (06:35)
[2018-12-09] MEDS: BENADRYL IV PRN (08:51)
--- NOTE | 2018-12-09 09:28 | Cat Scan Report ---
CT CHEST WITHOUT CONTRAST INDICATION / CLINICAL INFORMATION: right sided opacitites on chest xray. TECHNIQUE: Axial CT images were obtained through the chest without contrast. Sagittal and coronal reformatted im ages. All CT scans at this location are performed using CT dose reduction for ALARA by means of autom ated exposure control. COMPARISON: Chest x-rays dated 07/14/2018 and 12/07/2018 FINDINGS: HEART: No significant abnormality. THORACIC AORTA: No significant abnormality. MEDIASTINUM and REGAN: No significant abnormality. LUNGS: There is focal peribronchial groundglass shadowing in the right apical region. This could repr esent an early infiltrate. Minor subpleural atelectatic changes are noted in the dependent lower lobe s. Otherwise, the lungs are well-aerated. No underlying parenchymal lung disease is identified. PLEURA: No significant pleural effusion. No pneumothorax. SKELETAL SYSTEM: No significant abnormality. UPPER ABDOMEN: No significant abnormality. ADDITIONAL FINDINGS: None. IMPRESSION: Subtle right upper lobe/right apical infiltration as described. Correlate for early pneumonia. Minor bibasilar atelectatic changes. Signer Name: Mahendra Jensen Jr, MD Signed: 12/09/2018 9:24 AM Workstation Name: [id number]
[2018-12-09] MEDS: LOVENOX SUB-Q SCH (09:37)
[2018-12-09] MEDS: PEPCID IV SCH (09:37)
--- NOTE | 2018-12-09 11:31 | Discharge Summary ---
Providers - Providers Date of Admission: 12/07/18 17:00 Attending physician: TENISHA MILIAN MD 12/07/18 Consult to Case Management [CONS] Routine Services Needed at Discharge: [employer] Systems Operator Notified:: copy left for cm 12/07/18 16:59 Consult to Physician [CONS] Urgent Comment: Consulting Provider: ZO PÉREZ Physician Instructions: Reason For Exam: superior vena cava syndrome 12/08/18 00:52 Consult to Dietitian/Nutrition [CONS] Routine Physician Instructions: Reason For Exam: Reason for Consult: Write/Manage Tube Feeding [facility] Reason for admission: SVC SYNDROM Condition: Stable Hospital course: 43-year-old -Greek female with history of diabetes, deep vein thrombosis 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 Going on for 3 days .Also some shortness of breath. Also some chest pain on the right side. Patient was supposed to have cath Procedure on November 25 which could not be done. Patient has a G-tube and J-tube for nutrition. of note the patient is unable to take PO or feeding via the G tube. will continue on TPN and follow with vascular and her primary GI. 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 Ultrasound guided access of the right common femoral vein 2. Ultrasound guided access of the right basilic vein 3. Venography of the right upper extremity 4. Selection of the right subclavian vein from the right arm approach with venography 5. Selection of the right upper lobe pulmonary artery from the femoral appraoch (PAPVR) with pulmonary angiography 6. Selection of the left subclavian and innominate vein and SVC with venography from a femoral approach 7. Angioplasty of the SVC with a 12 mm x 60 mm angioplasty balloon and 14 mm x 40 mm angioplasty balloon 8. Ultrasound guided access of the right internal jugular vein 9. Fluoroscopic guided placement of a tunneled cuffed single lumen Hodge catheter Superior Vena Cava Syndrome Gastroparesis Secondary Coagulopathy Type 2 DM Right Neck Pain Headache Chronic Pain syndrome Hx:Gastroparesis, Hx OF Recurrent SEPSIS. hX OF hypoglycemia/ Hx of G-tube and J-tube. Disposition: DC-01 TO HOME OR SELFCARE Time spent for discharge: 35 MINS Core Measure Documentation - Palliative Care Palliative Care/ Comfort Measures: Not Applicable - Core Measures Any of the following diagnoses?: none Exam - Physical Exam Narrative exam: General appearance: Present: mild distress, well-nourished - EENT Eyes: Present: PERRL ENT: hearing intact, clear oral mucosa - Neck Neck: Present: supple, normal ROM, - Respiratory Respiratory effort: normal Respiratory: right: other (right chest superficial veins prominent), bilateral: CTA - Cardiovascular Heart rate: 78 Rhythm: regular Heart Sounds: Present: S1 & S2. Absent: rub, click - Extremities Extremities: no ischemia, pulses intact, pulses symmetrical, No edema Peripheral Pulses: within normal limits - Abdominal General gastrointestinal: Present: soft, non-tender, non-distended, normal bowel sounds, other (J-tube and G-tube in place) Female genitourinary: Present: normal - Integumentary Integumentary: Present: clear, warm, dry, MULTIPLE TATTOO - Musculoskeletal Musculoskeletal: gait normal, strength equal bilaterally - Psychiatric Psychiatric: appropriate mood/affect, intact judgment & insight - Neurologic Neurologic: CNII-XII intact, moves all extremities - Allied Health Allied health notes reviewed: nursing, case management - Constitutional Vitals: Temp Pulse Resp BP Pulse Ox 97.9 F 79 16 87/46 97 12/09/18 05:31 12/09/18 05:31 12/09/18 05:31 12/09/18 05:31 12/09/18 05:31 Plan Activity: advance as tolerated, fall precautions Diet: per dietitian instruction (TPN) Follow up with: CARON PEACOCK MD [Primary Care Provider] - 7 Days MAURICIO SOTO MD [Staff Physician] - 7 Days SERGEY HOOD MD [Staff Physician] - 7 Days Prescriptions: Enoxaparin [Lovenox] 80 mg SUB-Q Q12HR #30 syringe HYDROcodone/APAP 7.5-325 [[place] 7.5-325 mg per 15 ML] 7.5 mg PO Q6H PRN #500 ml PRN Reason: Pain, Moderate (4-6)
[2018-12-09] MEDS ORDERED: SIMPLE SYRUP FEEDTUBE PRN ×2 (11:55)
[2018-12-09] MEDS ORDERED: PANCREAZE DR 10,500 UNIT FEEDTUBE PRN (11:55)
[2018-12-09] MEDS ORDERED: SODIUM BICARBONATE FEEDTUBE PRN (11:55)
[2018-12-09 15:52] VITALS: BP 105/56
--- NOTE | 2018-12-09 17:23 | Progress Note ---
Assessment and Plan 43-year-old female with multiple medical issues including gastroparesis and multiple TPN lines with outpatient evaluation for dumping syndrome which has been refractory to multiple changes in J-tube feeds by outpatient financial consultant. Status post angioplasty of SVC. Symptomatic improvement. Status post TPN catheter placement. 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 Lovenox for as long as patient has TPN catheter. Recommend alcohol locks to prevent recurrent sepsis. Subjective Date of service: 12/09/18 Interval history: Doing better. Removed right groin pressure dressing. Right neck is sore from Ramirez placement. Discussed procedure. Patient has TPN for home. Discussed need for alcohol lox given episodes of sepsis in the past. Patient's situation complicated due to lack of insurance with severe chronic medical problems. Objective - Constitutional Vitals: Vital Signs - 12hr 12/09/18 12/09/18 05:31 11:16 Temperature 97.9 F 98.5 F Pulse Rate 79 84 Respiratory 16 19 Rate Blood Pressure 87/46 105/56 O2 Sat by Pulse 97 98 Oximetry General appearance: Present: mild distress (feels achy after procedure) - EENT Eyes: EOM intact ENT: hearing intact - Neck Neck: other (right neck painful after TPN catheter placement) - Respiratory Respiratory effort: normal - Psychiatric Psychiatric: appropriate mood/affect, cooperative - Labs CBC & Chem 7: 12/08/18 04:35 12/08/18 04:35 Labs: Abnormal lab results 12/08/18 12/09/18 Range/Units 13:22 05:42 POC Glucose 109 H 107 H (70-105) Medications & Allergies - Medications Allergies/Adverse Reactions: Allergies dexamethasone [From Decadron] Allergy (Verified 10/21/18 20:14) Angioedema diazepam [From Valium] Allergy (Verified 10/21/18 20:14) Angioedema ketorolac [From Toradol] Allergy (Verified 10/11/18 17:37) Swelling metoclopramide [From Reglan] Allergy (Verified 10/11/18 17:37) Unknown Penicillins Allergy (Verified 10/11/18 17:37) Swelling prochlorperazine [From Compazine] Allergy (Verified 10/11/18 17:37) Unknown promethazine [From Phenergan] Allergy (Verified 10/11/18 17:37) Swelling tramadol Allergy (Verified 10/11/18 17:37) Swelling adhesive tape Adverse Reaction (Verified 10/11/18 17:37) Itching fentanyl Adverse Reaction (Verified 10/21/18 20:13) Dizziness Apple Allergy (Uncoded 06/09/18 15:36) Swelling Sour cream Allergy (Uncoded 06/09/18 15:36) Swelling Whip cream Allergy (Uncoded 06/09/18 15:36) Swelling Home Medications: Home Medications Medication Instructions Recorded Confirmed Last Taken Type Quetiapine Fumarate [SEROquel] 400 mg PO HS 12/07/18 12/07/18 Unknown History Enoxaparin [Lovenox] 80 mg SUB-Q Q12HR #30 syringe 12/09/18 Unknown Rx HYDROcodone/APAP 7.5-325 [[place] 7.5 mg PO Q6H PRN #500 ml 12/09/18 Unknown Rx 7.5-325 mg per 15 ML]
== END 2018-12-09 14:45 | disposition home or self-care (01) | DRG 253 ==
LOC: ED 14:58 → 3A 17:00
PROVIDERS: ADMIT Internal Medicine; ATTEND Internal Medicine
PROC: 027V3ZZ Dilation of Superior Vena Cava, Percutaneous Approach (ICD-10-PCS; principal; 2018-12-08)
PROC: B5171ZZ Fluoroscopy of Left Subclavian Vein using Low Osmolar Contrast (ICD-10-PCS; 2018-12-08)
PROC: B51M1ZZ Fluoroscopy of Right Upper Extremity Veins using Low Osmolar Contrast (ICD-10-PCS; 2018-12-08)
PROC: B5181ZZ Fluoroscopy of Superior Vena Cava using Low Osmolar Contrast (ICD-10-PCS; 2018-12-08)
PROC: B5161ZZ Fluoroscopy of Right Subclavian Vein using Low Osmolar Contrast (ICD-10-PCS; 2018-12-08)
PROC: B31S1ZZ Fluoroscopy of Right Pulmonary Artery using Low Osmolar Contrast (ICD-10-PCS; 2018-12-08)
PROC: 0JH63XZ Insertion of Tunneled Vascular Access Device into Chest Subcutaneous Tissue and Fascia, Percutaneous Approach (ICD-10-PCS; 2018-12-08)
PROC: 05HY33Z Insertion of Infusion Device into Upper Vein, Percutaneous Approach (ICD-10-PCS; 2018-12-08)
DX: T82.898A Other specified complication of vascular prosthetic devices, implants and grafts, initial encounter (principal); I87.1 Compression of vein; D68.8 Other specified coagulation defects; K21.9 Gastro-esophageal reflux disease without esophagitis; E11.43 Type 2 diabetes mellitus with diabetic autonomic (poly)neuropathy; K31.84 Gastroparesis; E11.649 Type 2 diabetes mellitus with hypoglycemia without coma; K91.1 Postgastric surgery syndromes; Y83.8 Other surgical procedures as the cause of abnormal reaction of the patient, or of later complication, without mention of misadventure at the time of the procedure; Z86.718 Personal history of other venous thrombosis and embolism; Z79.01 Long term (current) use of anticoagulants; Z82.49 Family history of ischemic heart disease and other diseases of the circulatory system; Z90.49 Acquired absence of other specified parts of digestive tract; Z90.710 Acquired absence of both cervix and uterus; Z87.891 Personal history of nicotine dependence; Z88.6 Allergy status to analgesic agent; Z88.0 Allergy status to penicillin; Z88.8 Allergy status to other drugs, medicaments and biological substances; Z91.018 Allergy to other foods; Z91.048 Other nonmedicinal substance allergy status; Z91.09 Other allergy status, other than to drugs and biological substances; Z93.1 Gastrostomy status; Z79.84 Long term (current) use of oral hypoglycemic drugs; Y92.098 Other place in other non-institutional residence as the place of occurrence of the external cause
CPT/HCPCS: 36415; 36558; 37248; 71045; 71250; 75820; 75827; 76937; 77001; 80053; 82962; 83036; 83880; 85025; 85379; 85610; 85730; 93005; 93010; 96372; 96374; 96375; G0378; C1725; C1752; C1769; C1887; C1894; J1170; J1200; J1644; J1650; J2405; J2704; J7030; J7040; J7042; J7050; Q9967

== ENCOUNTER 2018-12-25 16:24 | Emergency (ER) | payer SELFPAY ==
[2018-12-25] MEDS ORDERED: SODIUM CHLORIDE 0.9% 1000 ML 1,000 ML ONE (17:42)
--- NOTE | 2018-12-25 17:52 | Event Note ---
ED Screening Note ED Screening Note: This initial assessment/diagnostic orders/clinical plan/treatment(s) is/are subject to change based on patients health status, clinical progression and re- assessment by fellow clinical providers in the ED. Further treatment and workup at subsequent clinical providers discretion. Patient/guardian urged not to elope from the ED as their condition may be serious if not clinically assessed and managed. Initial orders include: 43yo Black female states that she has gastroperesis and abdominal pain x 2 days.
[2018-12-25] MEDS ORDERED: ONDANSETRON 4 MG/2 ML INJ ONE (18:05)
[2018-12-25] MEDS ORDERED: SODIUM CHLORIDE 0.9% 1000 ML 1,000 ML IV ONE ×2 (18:06→20:26)
[2018-12-25] MEDS ORDERED: ONDANSETRON 4 MG/2 ML INJ IV ONE (18:08)
[2018-12-25 18:14] LABS: Basophils % (Auto) 0.2 % (0.0-1.8); Hematocrit 36.1 % (30.3-42.9); Lymphocytes # (Auto) 2.6 K/mm3 (1.2-5.4); Mean Corpuscular HGB Conc 33 % (30-34); Mean Corpuscular Volume 96 fl (79-97); Monocytes # (Auto) 0.4 K/mm3 (0.0-0.8); Monocytes % (Auto) 7.3 % (0.0-7.3); Platelet Count 277 K/mm3 (140-440); Red Blood Count 3.78 M/mm3 (3.65-5.03); Red Cell Distribution Width 13.9 % (13.2-15.2)
[2018-12-25 18:33] LABS: Alanine Aminotransferase 14 units/L (7-56); Albumin 4.4 g/dL (3.9-5); BUN/Creatinine Ratio 14; Blood Urea Nitrogen 10 mg/dL (7-17); Calcium 9.4 mg/dL (8.4-10.2); Hemolysis Index 4
[2018-12-25] MEDS ORDERED: MORPHINE 4 MG/1 ML INJ IV ONE (18:57)
[2018-12-25] MEDS ORDERED: HYDROmorphone 1 MG/1 ML INJ IV ONE (20:12)
--- NOTE | 2018-12-25 21:26 | Emergency Department Report ---
ED Abdominal Pain HPI - General Chief Complaint: Abdominal Pain Stated Complaint: V/D ABD PAIN/CANT URINATE Time Seen by Provider: 12/25/18 18:12 Source: patient Mode of arrival: Ambulatory Limitations: No Limitations - History of Present Illness Initial Comments: This is a 43-year-old female nontoxic, well nourished in appearance, no acute signs of distress presents to the ED with c/o of acute on chronic nausea and vomiting and abdominal pain 1 day. Patient stated has a CT scan with contrast of abdomen last week and was within normal limits. Stated this is a normal gastroparesis flareup. Patient is known to be with history of gastroparesis. Patient states she has been out of her pain medication and nausea medication for a few days. Patient is also requesting Lasix prescription as she is out of it and takes a when necessary during swelling episodes. Patient currently denies any swelling. Patient describes vomiting as food content and yellow gastric acid. Patient describes abdominal pain as cramping and aching with level of 2/10 diffuse. Patient denies chest pain, short of breath, fever, chills, headache, stiff neck, numbness or tingling. Patient denies any diarrhea or constipation. Patient denies any recent travels. MD Complaint: abdominal pain -: days(s) Location: diffuse Radiation: none Migration to: no migration Severity: mild Severity scale (0 -10): 3 Quality: cramping, aching Consistency: intermittent Improves With: nothing Worsens With: nothing Associated Symptoms: nausea, vomiting. denies: diarrhea, fever, chills, constipation, dysuria, hematemesis, hematochezia, melena, hematuria, anorexia, syncope - Related Data Home Medications Medication Instructions Recorded Confirmed Last Taken Quetiapine Fumarate [SEROquel] 400 mg PO HS 12/07/18 12/07/18 Unknown Previous Rx's Medication Instructions Recorded Last Taken Type Enoxaparin [Lovenox] 80 mg SUB-Q Q12HR #30 syringe 12/09/18 Unknown Rx HYDROcodone/APAP 7.5-325 [[employer] 7.5 mg PO Q6H PRN #500 ml 12/09/18 Unknown Rx 7.5-325 mg per 15 ML] Acetamin/Codeine 120-12Mg/5 ml 5 ml PO TID PRN 5 Days oz 12/25/18 Unknown Rx [Tylenol/Codeine] Furosemide [Lasix] 20 mg PO QDAY PRN #5 tablet 12/25/18 Unknown Rx Ondansetron [Zofran Oral Liq] 4 mg PO ONCE PRN 5 Days oralsyr 12/25/18 Unknown Rx Allergies Allergy/AdvReac Type Severity Reaction Status Date / Time dexamethasone [From Decadron] Allergy Angioedema Verified 12/25/18 16:29 diazepam [From Valium] Allergy Angioedema Verified 12/25/18 16:29 ketorolac [From Toradol] Allergy Swelling Verified 12/25/18 16:29 metoclopramide [From Reglan] Allergy Unknown Verified 12/25/18 16:29 Penicillins Allergy Swelling Verified 12/25/18 16:29 prochlorperazine Allergy Unknown Verified 12/25/18 16:29 [From Compazine] promethazine [From Phenergan] Allergy Swelling Verified 12/25/18 16:29 tramadol Allergy Swelling Verified 12/25/18 16:29 adhesive tape AdvReac Itching Verified 12/25/18 16:29 fentanyl AdvReac Dizziness Verified 12/25/18 16:29 Apple Allergy Swelling Uncoded 06/09/18 15:36 Sour cream Allergy Swelling Uncoded 06/09/18 15:36 Whip cream Allergy Swelling Uncoded 06/09/18 15:36 ED Review of Systems ROS: Stated complaint: V/D ABD PAIN/CANT URINATE Other details as noted in HPI Constitutional: denies: chills, fever Eyes: denies: eye pain, eye discharge, vision change ENT: denies: ear pain, throat pain Respiratory: denies: cough, shortness of breath, wheezing Cardiovascular: denies: chest pain, palpitations Endocrine: no symptoms reported Gastrointestinal: abdominal pain, nausea, vomiting. denies: diarrhea Genitourinary: denies: urgency, dysuria, discharge Musculoskeletal: denies: back pain, joint swelling, arthralgia Skin: denies: rash, lesions Neurological: denies: headache, weakness, paresthesias Psychiatric: denies: anxiety, depression Hematological/Lymphatic: denies: easy bleeding, easy bruising ED Past Medical Hx - Past Medical History Previous Medical History?: Yes Hx Hypertension: No Hx Heart Attack/AMI: No Hx Diabetes: Yes Hx Deep Vein Thrombosis: Yes Hx GERD: Yes Hx Liver Disease: No Hx Renal Disease: No Hx Sickle Cell Disease: No Hx Seizures: No Hx Asthma: No Hx COPD: No Hx HIV: No Additional medical history: Gastroparesis, Unable to eat or drink on TPN 18 hours a day and IVF 2 hours a day, REBEL Button, SEPSIS. hypoglycemia////G-tube and J-tube. SVC Syndrome - Surgical History Past Surgical History?: Yes Hx Pacemaker: No Hx Internal Defibrillator: No Hx Cholecystectomy: Yes Hx Breast Surgery: (yes, augmentation) Additional Surgical History: Infusaport left chest wall. G-tube(2016) and J- tube(2017), Hysterectomy. Breast augmentation, PICC line. Inferior Vena Cava Implant - Social History Smoking Status: Never Smoker Substance Use Type: None - Medications Home Medications: Home Medications Medication Instructions Recorded Confirmed Last Taken Type Quetiapine Fumarate [SEROquel] 400 mg PO HS 12/07/18 12/07/18 Unknown History Enoxaparin [Lovenox] 80 mg SUB-Q Q12HR #30 syringe 12/09/18 Unknown Rx HYDROcodone/APAP 7.5-325 [[employer] 7.5 mg PO Q6H PRN #500 ml 12/09/18 Unknown Rx 7.5-325 mg per 15 ML] Acetamin/Codeine 120-12Mg/5 ml 5 ml PO TID PRN 5 Days oz 12/25/18 Unknown Rx [Tylenol/Codeine] Furosemide [Lasix] 20 mg PO QDAY PRN #5 tablet 12/25/18 Unknown Rx Ondansetron [Zofran Oral Liq] 4 mg PO ONCE PRN 5 Days oralsyr 12/25/18 Unknown Rx ED Physical Exam - General Limitations: No Limitations General appearance: alert, in no apparent distress - Head Head exam: Present: atraumatic, normocephalic - Neck Neck exam: Present: normal inspection, full ROM. Absent: tenderness, meningismus, lymphadenopathy - Respiratory Respiratory exam: Present: normal lung sounds bilaterally. Absent: respiratory distress, wheezes, rales, rhonchi, stridor, chest wall tenderness, accessory muscle use, decreased breath sounds, prolonged expiratory - Cardiovascular Cardiovascular Exam: Present: regular rate, normal rhythm, normal heart sounds. Absent: bradycardia, tachycardia, irregular rhythm, systolic murmur, diastolic murmur, rubs, gallop - GI/Abdominal GI/Abdominal exam: Present: soft, normal bowel sounds. Absent: distended, tenderness, guarding, rebound, rigid, diminished bowel sounds - Extremities Exam Extremities exam: Present: normal inspection, full ROM - Back Exam Back exam: Present: normal inspection, full ROM - Neurological Exam Neurological exam: Present: alert, oriented X3, normal gait - Psychiatric Psychiatric exam: Present: normal affect, normal mood - Skin Skin exam: Present: warm, dry, intact, normal color. Absent: rash ED Course Vital Signs 12/25/18 12/25/18 12/25/18 17:01 20:27 20:44 Temperature 97.7 F Pulse Rate 90 89 86 Respiratory 16 17 15 Rate Blood Pressure 116/83 Blood Pressure 132/80 126/93 [Right] O2 Sat by Pulse 98 99 97 Oximetry 12/25/18 22:15 Temperature Pulse Rate 84 Respiratory 17 Rate Blood Pressure Blood Pressure 148/83 [Right] O2 Sat by Pulse 98 Oximetry - Reevaluation(s) Reevaluation #1: 12/25/18 21:30 Patient is speaking in full sentences with no signs of distress noted. ED Medical Decision Making - Lab Data Result diagrams: 12/25/18 17:47 12/25/18 17:47 - Medical Decision Making This is a 43-year-old female that presents with nausea and vomiting. Patient is stable and was examined by me. There is no abdominal tenderness. Negative signs of symptoms of appendicitis. Labs obtained. UA obtained. Patient is notified of the report with no questions noted by the patient. Vital signs are stable prior to discharge. Patient received medical treatment in the ED which patient stated symptoms has resovled and subsided. Patient stated abdominal pain has resolved. Patient is Patient was also instructed to Follow-up with a primary care doctor in 3-5 days or if symptoms worsen and continue return to emergency room as soon as possible. At time of discharge, the patient does not seem toxic or ill in appearance. No acute signs of distress noted. Patient agrees to discharge treatment plan of care. No further questions noted by the patient. Patient stated is out of her lasix and is requesting for prescription. Critical care attestation.: If time is entered above; I have spent that time in minutes in the direct care of this critically ill patient, excluding procedure time. ED Disposition Clinical Impression: Gastroparesis Abdominal pain Qualifiers: Abdominal location: generalized Qualified Code(s): R10.84 - Generalized abdominal pain Nausea & vomiting Qualifiers: Vomiting type: unspecified Vomiting Intractability: non-intractable Qualified Code(s): R11.2 - Nausea with vomiting, unspecified Disposition: DC-01 TO HOME OR SELFCARE Is pt being admited?: No Does the pt Need Aspirin: No Condition: Stable Instructions: Acetaminophen/Codeine (By mouth), Acute Nausea and Vomiting (ED), Abdominal Pain (ED) Additional Instructions: Follow-up with a primary care and GI doctor in 3-5 days or if symptoms worsen and continue return to emergency room as soon as possible. Do not operate any machinery while taking Tylenol with codeine as this may cause drowsiness. Prescriptions: Furosemide [Lasix] 20 mg PO QDAY PRN #5 tablet PRN Reason: swelling Acetamin/Codeine 120-12Mg/5 ml [Tylenol/Codeine] 5 ml PO TID PRN 5 Days oz PRN Reason: Pain Ondansetron [Zofran Oral Liq] 4 mg PO ONCE PRN 5 Days oralsyr PRN Reason: Nausea Referrals: PRIMARY CAREMD [Primary Care Provider] - 3-5 Days AUSTIN LEY MD [Staff Physician] - 3-5 Days [facility] [Outside] - 3-5 Days [facility] [Outside] - 3-5 Days [facility] [Provider Group] - 3-5 Days
[2018-12-25 22:15] LABS: Bilirubin,Urine NEG (Negative); Color,Urine Yellow (Yellow)
[2018-12-25 22:16] VITALS: BP 148/83
[2018-12-25 22:16] LABS: Bacteria,Urine 2+ /HPF (Negative); Blood,Urine NEG (Negative); Mucus,Urine FEW /HPF; Protein,Urine <15 mg/dL mg/dL (Negative); Urobilinogen,Urine < 2.0 mg/dL (<2.0)
[2018-12-25 22:21] LABS: HCG Qualitative,Urine Negative (Negative)
== END 2018-12-25 23:24 | disposition home or self-care (01) ==
LOC: ED 16:24
DX: K31.84 Gastroparesis (principal); E11.9 Type 2 diabetes mellitus without complications; Z98.890 Other specified postprocedural states; Z90.49 Acquired absence of other specified parts of digestive tract; Z88.8 Allergy status to other drugs, medicaments and biological substances; Z88.6 Allergy status to analgesic agent
CPT/HCPCS: 36415; 80053; 81001; 81025; 83690; 84703; 85025; J1170; J1642; J2270; J2405; J7030; 96361; 96374; 96375

== ENCOUNTER 2019-01-16 22:15 | Emergency (ER) | payer SELFPAY ==
[2019-01-16 22:33] VITALS: BP 128/87
[2019-01-16 23:50] LABS: Basophils % (Auto) 0.4 % (0.0-1.8); Hematocrit 38.2 % (30.3-42.9); Hemoglobin 12.8 gm/dl (10.1-14.3); Lymphocytes # (Auto) 2.5 K/mm3 (1.2-5.4); Lymphocytes % (Auto) 34.9 % (13.4-35.0); Mean Corpuscular HGB Conc 34 % (30-34); Mean Corpuscular Volume 95 fl (79-97); Monocytes # (Auto) 0.5 K/mm3 (0.0-0.8); Monocytes % (Auto) 7.5 % (0.0-7.3); Platelet Count 253 K/mm3 (140-440); Red Blood Count 4.04 M/mm3 (3.65-5.03); Red Cell Distribution Width 13.5 % (13.2-15.2)
[2019-01-17 00:02] LABS: Alanine Aminotransferase 13 units/L (7-56); Albumin 4.8 g/dL (3.9-5); BUN/Creatinine Ratio 13; Blood Urea Nitrogen 10 mg/dL (7-17); Calcium 9.5 mg/dL (8.4-10.2); Hemolysis Index 5
== END 2019-01-16 23:00 | disposition left against medical advice (07) ==
LOC: ED 22:15
DX: R23.3 Spontaneous ecchymoses (principal); Z53.21 Procedure and treatment not carried out due to patient leaving prior to being seen by health care provider
CPT/HCPCS: 36415; 80053; 84703; 85025

== ENCOUNTER 2019-02-21 18:09 | Emergency (ER) | payer SELFPAY ==
[2019-02-21] MEDS ORDERED: MORPHINE 4 MG/1 ML INJ IV ONE (22:16)
[2019-02-21] MEDS ORDERED: MORPHINE 4 MG/1 ML INJ ONE (22:17)
--- NOTE | 2019-02-21 22:41 | Emergency Department Report ---
ED General Adult HPI - General Chief complaint: Fall Stated complaint: FALL/FEEDING TUBE ISSUES Time Seen by Provider: 02/21/19 21:25 Source: patient Mode of arrival: Ambulatory Limitations: No Limitations - History of Present Illness Initial comments: Patient is a 44-year-old female presents emergency room with complaints of accidentally dislodging her G-tube just prior to arrival. she states that she stumbled down the steps which accidentally caused her to pulled her G-tube out. She states that she also felt a tug on her J-tube and it has been causing her discomfort but is still intact. She denies hitting her head. She denies loss of consciousness. she denies any other injury. She does not report any chest pain, shortness of breath, nausea, vomiting, diarrhea, fever, chills, any other symptoms. she states the G-tube and J-tube have been in for 5 years. Severity scale (0 -10): 10 - Related Data Home Medications Medication Instructions Recorded Confirmed Last Taken Quetiapine Fumarate [SEROquel] 400 mg PO HS 12/07/18 12/07/18 Unknown Previous Rx's Medication Instructions Recorded Last Taken Type Enoxaparin 80 mg SUB-Q Q12HR #30 syringe 12/09/18 Unknown Rx HYDROcodone/APAP 7.5-325 [[place] 7.5 mg PO Q6H PRN #500 ml 12/09/18 Unknown Rx 7.5-325 mg per 15 ML] Acetamin/Codeine 120-12Mg/5 ml 5 ml PO TID PRN 5 Days oz 12/25/18 Unknown Rx [Tylenol/Codeine] Furosemide [Lasix] 20 mg PO QDAY PRN #5 tablet 12/25/18 Unknown Rx Ondansetron [Zofran Oral Liq] 4 mg PO ONCE PRN 5 Days oralsyr 12/25/18 Unknown Rx Allergies Allergy/AdvReac Type Severity Reaction Status Date / Time dexamethasone [From Decadron] Allergy Angioedema Verified 12/25/18 16:29 diazepam [From Valium] Allergy Angioedema Verified 12/25/18 16:29 ketorolac [From Toradol] Allergy Swelling Verified 12/25/18 16:29 metoclopramide [From Reglan] Allergy Unknown Verified 12/25/18 16:29 Penicillins Allergy Swelling Verified 12/25/18 16:29 prochlorperazine Allergy Unknown Verified 12/25/18 16:29 [From Compazine] promethazine [From Phenergan] Allergy Swelling Verified 12/25/18 16:29 tramadol Allergy Swelling Verified 12/25/18 16:29 adhesive tape AdvReac Itching Verified 12/25/18 16:29 fentanyl AdvReac Dizziness Verified 12/25/18 16:29 Apple Allergy Swelling Uncoded 06/09/18 15:36 Sour cream Allergy Swelling Uncoded 06/09/18 15:36 Whip cream Allergy Swelling Uncoded 06/09/18 15:36 ED Review of Systems ROS: Stated complaint: FALL/FEEDING TUBE ISSUES Other details as noted in HPI Comment: All other systems reviewed and negative ED Past Medical Hx - Past Medical History Previous Medical History?: Yes Hx Hypertension: No Hx Heart Attack/AMI: No Hx Diabetes: Yes Hx Deep Vein Thrombosis: Yes Hx GERD: Yes Hx Liver Disease: No Hx Renal Disease: No Hx Sickle Cell Disease: No Hx Seizures: No Hx Asthma: No Hx COPD: No Hx HIV: No Additional medical history: Gastroparesis, Unable to eat or drink on TPN 18 hours a day and IVF 2 hours a day, REBEL Button, SEPSIS. hypoglycemia////G-tube and J-tube. SVC Syndrome - Surgical History Past Surgical History?: Yes Hx Pacemaker: No Hx Internal Defibrillator: No Hx Cholecystectomy: Yes Hx Breast Surgery: (yes, augmentation) Additional Surgical History: Infusaport left chest wall. G-tube(2016) and J-tube(2017), Hysterectomy. Breast augmentation, PICC line. Inferior Vena Cava Implant - Social History Smoking Status: Never Smoker - Medications Home Medications: Home Medications Medication Instructions Recorded Confirmed Last Taken Type Quetiapine Fumarate [SEROquel] 400 mg PO HS 12/07/18 12/07/18 Unknown History Enoxaparin 80 mg SUB-Q Q12HR #30 syringe 12/09/18 Unknown Rx HYDROcodone/APAP 7.5-325 [[place] 7.5 mg PO Q6H PRN #500 ml 12/09/18 Unknown Rx 7.5-325 mg per 15 ML] Acetamin/Codeine 120-12Mg/5 ml 5 ml PO TID PRN 5 Days oz 12/25/18 Unknown Rx [Tylenol/Codeine] Furosemide [Lasix] 20 mg PO QDAY PRN #5 tablet 12/25/18 Unknown Rx Ondansetron [Zofran Oral Liq] 4 mg PO ONCE PRN 5 Days oralsyr 12/25/18 Unknown Rx ED Physical Exam - General Limitations: No Limitations General appearance: alert, in no apparent distress - Head Head exam: Present: atraumatic, normocephalic - Eye Eye exam: Present: normal appearance - ENT ENT exam: Present: mucous membranes moist - Respiratory Respiratory exam: Present: normal lung sounds bilaterally. Absent: respiratory distress, wheezes, rales, rhonchi, stridor, chest wall tenderness, accessory muscle use, decreased breath sounds, prolonged expiratory - Cardiovascular Cardiovascular Exam: Present: regular rate, normal rhythm, normal heart sounds. Absent: systolic murmur, diastolic murmur, rubs, gallop - GI/Abdominal GI/Abdominal exam: Present: soft, normal bowel sounds, other (G-tube site in the mid upper abdomen with opening present, appears clean, dry, intact, J-tube present to the left upper abdomen is in place with no complications, there is no ecchymosis, no signs of infection). Absent: distended, guarding, rebound, rigid ED Course Vital Signs 02/21/19 02/21/19 02/21/19 18:17 21:50 22:00 Temperature 97.8 F Pulse Rate 112 H Respiratory 20 Rate Blood Pressure 139/88 117/79 Blood Pressure [Left] O2 Sat by Pulse 97 98 97 Oximetry 02/21/19 02/21/19 02/22/19 23:29 23:31 00:00 Temperature Pulse Rate 88 Respiratory 16 20 Rate Blood Pressure 125/77 120/69 Blood Pressure 125/77 [Left] O2 Sat by Pulse 97 98 Oximetry 02/22/19 02/22/19 00:30 01:00 Temperature Pulse Rate Respiratory Rate Blood Pressure 119/71 123/71 Blood Pressure [Left] O2 Sat by Pulse 100 95 Oximetry ED Medical Decision Making - Lab Data Result diagrams: 02/21/19 22:34 02/21/19 22:34 - Radiology Data Radiology results: report reviewed Abdomen single view INDICATION: Abdominal pain. IMPRESSION: Injected contrast through the G-tube is noted primarily within the distal stomach and small bowel. Signer Name: Albert Thomas MD Signed: 02/22/2019 1:12 AM Workstation Name: [id number] Transcribed By: ANGELINA Dictated By: Albert Thomas MD Electronically Authenticated By: Albert Thomas MD Signed Date/Time: 02/22/19111 DD/ 0 TD/TT: ABDOMEN 1 VIEW(S) INDICATION / CLINICAL INFORMATION: assess J-tube patency. Abdominal pain COMPARISON: None available. FINDINGS: TUBES / LINES: None. BOWEL GAS PATTERN: Injected contrast is seen within the jejunum. No complications appreciated. Signer Name: Albert Thomas MD Signed: 02/21/2019 11:27 PM Workstation Name: [id number] Transcribed By: ANGELINA Dictated By: Albert Thomas MD Electronically Authenticated By: Albert Thomas MD Signed Date/Time: 02/21/192326 DD/ 26 TD/TT: - Medical Decision Making Patient is a 44-year-old female presents emergency room with complaints of accidentally dislodging her G-tube just prior to arrival. she states that she stumbled down the steps which accidentally caused her to pulled her G-tube out. She states that she also felt a tug on her J-tube and it has been causing her discomfort but is still intact. She denies hitting her head. She denies loss of consciousness. she denies any other injury. She does not report any chest pain, shortness of breath, nausea, vomiting, diarrhea, fever, chills, any other symptoms. she states the G-tube and J-tube have been in for 5 years. initial vitals with tachycardia which improved upon repeat. on exam: G-tube site in the mid upper abdomen with opening present, appears clean, dry, intact, J-tube present to the left upper abdomen is in place with no complications, there is no ecchymosis, no signs of infection. Labs are normal. Dr. Orion Jimenez was able to place a Oneil catheter inside the G-tube site patient tolerated well, no complications, Oneil balloon was inflated until pt is able to follow up with her doctor saturday morning (02/23/19) for replacement. Gastrografin was placed in J-tube and G-tube and x-rays were taken and show they are in the appropriate positions. Patient requested prescriptions for pain medication. the [facility] aware shows that patient received Tylenol with Codeine on 02/09/9019 and hydrocodone on 02/01/19. Will not be prescribing any further narcotics, advised pt that she can take her chronic pain medication that she uses at home. advised pt to Please follow-up with your doctor on Saturday (02/23/19) for replacement of your G-tube. Return to the emergency room for any new or worsening symptoms. Critical care attestation.: If time is entered above; I have spent that time in minutes in the direct care of this critically ill patient, excluding procedure time. ED Disposition Clinical Impression: Gastrojejunostomy tube dislodgement Disposition: - TO HOME OR SELFCARE Is pt being admited?: No Does the pt Need Aspirin: No Condition: Stable Additional Instructions: Please follow-up with your doctor on Saturday (02/23/19) for replacement of your G-tube. Return to the emergency room for any new or worsening symptoms. Referrals: LUZ BURGOS MD [Primary Care Provider] - 24 Hours Time of Disposition: 01:23 Print Language: ESTONIAN
[2019-02-21 22:57] LABS: Basophils % (Auto) 0.6 % (0.0-1.8); Hematocrit 37.5 % (30.3-42.9); Hemoglobin 12.4 gm/dl (10.1-14.3); Lymphocytes # (Auto) 2.1 K/mm3 (1.2-5.4); Lymphocytes % (Auto) 33.4 % (13.4-35.0); Mean Corpuscular HGB Conc 33 % (30-34); Mean Corpuscular Volume 94 fl (79-97); Monocytes # (Auto) 0.4 K/mm3 (0.0-0.8); Monocytes % (Auto) 6.8 % (0.0-7.3); Platelet Count 250 K/mm3 (140-440); Red Blood Count 3.99 M/mm3 (3.65-5.03); Red Cell Distribution Width 13.5 % (13.2-15.2)
[2019-02-21] MEDS ORDERED: HYDROmorphone 1 MG/1 ML INJ IV ONE (23:05)
[2019-02-21 23:12] LABS: Alanine Aminotransferase 16 units/L (7-56); Albumin 4.4 g/dL (3.9-5); BUN/Creatinine Ratio 11; Blood Urea Nitrogen 10 mg/dL (7-17); Calcium 9.4 mg/dL (8.4-10.2); Hemolysis Index 8
--- NOTE | 2019-02-21 23:32 | XRay Report ---
ABDOMEN 1 VIEW(S) INDICATION / CLINICAL INFORMATION: assess J-tube patency. Abdominal pain COMPARISON: None available. FINDINGS: TUBES / LINES: None. BOWEL GAS PATTERN: Injected contrast is seen within the jejunum. No complications appreciated. Signer Name: Albert Thomas MD Signed: 02/21/2019 11:27 PM Workstation Name: [id number]
[2019-02-21] MEDS ORDERED: ONDANSETRON 4 MG/2 ML INJ IV ONE (23:34)
[2019-02-21] MEDS ORDERED: ONDANSETRON 4 MG/2 ML INJ ONE (23:35)
--- NOTE | 2019-02-22 01:16 | XRay Report ---
Abdomen single view INDICATION: Abdominal pain. IMPRESSION: Injected contrast through the G-tube is noted primarily within the distal stomach and sma ll bowel. Signer Name: Albert Thomas MD Signed: 02/22/2019 1:12 AM Workstation Name: [id number]
[2019-02-22 01:51] VITALS: BP 123/71
== END 2019-02-22 01:52 | disposition home or self-care (01) ==
LOC: ED 18:09
DX: Z43.1 Encounter for attention to gastrostomy (principal); E11.9 Type 2 diabetes mellitus without complications; K21.9 Gastro-esophageal reflux disease without esophagitis; Z98.890 Other specified postprocedural states; Z90.49 Acquired absence of other specified parts of digestive tract; Z90.710 Acquired absence of both cervix and uterus; Z79.899 Other long term (current) drug therapy; Z88.6 Allergy status to analgesic agent; Z88.8 Allergy status to other drugs, medicaments and biological substances; Z91.048 Other nonmedicinal substance allergy status; Z88.0 Allergy status to penicillin; Z91.018 Allergy to other foods
CPT/HCPCS: 36415; 74018; 80053; 85025; 96374; 96376; 99284; J1170; J2270; J2405; Q9967

== ENCOUNTER 2019-06-02 07:50 | Day surgery (SDC) | payer MEDICARE, SELFPAY ==
--- NOTE | 2019-06-02 08:35 | Anesthesia Consultation ---
Anesthesia Consult and Med Hx Date of service: 06/02/19 - Airway Anesthetic Teeth Evaluation: Good ROM Head & Neck: Adequate Mental/Hyoid Distance: Adequate Mallampati Class: Class I Intubation Access Assessment: Good - Pre-Operative Health Status ASA Pre-Surgery Classification: ASA3 Proposed Anesthetic Plan: MAC - Pulmonary Hx Smoking: Yes Hx Asthma: No Hx Respiratory Symptoms: No COPD: No - Cardiovascular System Hx Hypertension: No Hx Heart Attack/AMI: No Hx Percutaneous Transluminal Coronary Angioplasty (PTCA): No Hx Cardia Arrhythmia: No Hx Pacemaker: No Hx Internal Defibrillator: No Hx Peripheral Vascular Disease: Yes (right upper arm vein thrombosis, SVC stenosis) - Central Nervous System Hx Seizures: No CVA: No Hx Psychiatric Problems: Yes - Gastrointestinal Hx Gastroesophageal Reflux Disease: No (G-tube in-situ for gastroparesis) - Endocrine Hx Renal Disease: No Hx End Stage Renal Disease: No Hx Liver Disease: No Hx Non-Insulin Dependent Diabetes: Yes (occasional episodes hypoglycemia) Hx Thyroid Disease: No - Hematic Hx Anemia: Yes Hx Sickle Cell Disease: No - Other Systems Hx Cancer: No Hx Obesity: No - Additional Comments Anesthesia Medical History Comments: TPN for many years for gastroparesis
--- NOTE | 2019-06-02 08:40 | Anesthesia Day of Surgery ---
Anesthesia Day of Surgery - Day of Surgery Patient Examined: Yes Patient H&P Reviewed: Yes Patient is NPO: Yes
[2019-06-02] MEDS ORDERED: SODIUM CHLORIDE 0.9% 500 ML 500 ML IV SCH (09:00)
[2019-06-02 09:21] LABS: Hematocrit 35.4 % (30.3-42.9); Hemoglobin 11.8 gm/dl (10.1-14.3); Mean Corpuscular HGB Conc 33 % (30-34); Mean Corpuscular Volume 91 fl (79-97); Platelet Count 263 K/mm3 (140-440); Red Cell Distribution Width 14.6 % (13.2-15.2)
[2019-06-02 09:34] LABS: INR 0.92 (0.87-1.13)
[2019-06-02 09:35] LABS: Partial Thromboplastin Time 39.7 Sec. (24.2-36.6)
[2019-06-02 09:39] LABS: BUN/Creatinine Ratio 13; Blood Urea Nitrogen 9 mg/dL (7-17); Hemolysis Index 15
[2019-06-02] MEDS ORDERED: HYDROmorphone 1 MG/1 ML INJ IV ONE (10:59)
[2019-06-02] MEDS ORDERED: ONDANSETRON 4 MG/2 ML INJ IV ONE (10:59)
[2019-06-02] MEDS ORDERED: HYDROmorphone 1 MG/1 ML INJ ONE ×2 (11:48→14:40)
[2019-06-02] MEDS ORDERED: MIDAZOLAM 2 MG/2 ML INJ ONE ×2 (11:49→14:40)
[2019-06-02] MEDS ORDERED: propofoL 200 MG/20 ML VIAL IV ONE ×4 (11:49)
[2019-06-02] MEDS ORDERED: HEPARIN/NS 5000 UNIT/500ML 1,000 ML IR ONE (11:50)
[2019-06-02] MEDS ORDERED: LIDOCAINE MPF (2%) 20 MG/1 ML VIAL 5 ML ONE (11:50)
[2019-06-02] MEDS: LIDOCAINE 1%/EPINEPHRINE 1:100,000 VIAL (20 ML) INFILTRATI ONE ×2 (12:34→13:45)
[2019-06-02] MEDS: HEPARIN 10,000 UNITS/10 ML VIAL ONE ×2 (12:58→14:02)
[2019-06-02] MEDS ORDERED: VANCOMYCIN/NS 1 GM/250 ML 1 GM/250 ML BAG IV NR (13:00)
[2019-06-02] MEDS ORDERED: LIDOCAINE 1%/EPINEPHRINE 1:100,000 VIAL (20 ML) INFILTRATI ONE (13:49)
--- NOTE | 2019-06-02 14:56 | Short Stay Summary ---
Short Stay Documentation Date of service: 06/02/19 Narrative H&P: 43-year-old female with recurrent SVC syndrome and Ramirez catheter malfunction due to underlying gastroparesis - History Principal diagnosis: SVC syndrome, hypoglycemia and gastroparesis H&P: obtained from office - Allergies and Medications Current Medications: Allergies dexamethasone [From Decadron] Allergy (Verified 12/25/18 16:29) Angioedema diazepam [From Valium] Allergy (Verified 12/25/18 16:29) Angioedema ketorolac [From Toradol] Allergy (Verified 12/25/18 16:29) Swelling metoclopramide [From Reglan] Allergy (Verified 12/25/18 16:29) Unknown Penicillins Allergy (Verified 12/25/18 16:29) Swelling prochlorperazine [From Compazine] Allergy (Verified 12/25/18 16:29) Unknown promethazine [From Phenergan] Allergy (Verified 12/25/18 16:29) Swelling tramadol Allergy (Verified 12/25/18 16:29) Swelling adhesive tape Adverse Reaction (Verified 12/25/18 16:29) Itching fentanyl Adverse Reaction (Verified 12/25/18 16:29) Dizziness Apple Allergy (Uncoded 06/09/18 15:36) Swelling Sour cream Allergy (Uncoded 06/09/18 15:36) Swelling Whip cream Allergy (Uncoded 06/09/18 15:36) Swelling Home Medications Medication Instructions Recorded Confirmed Last Taken Type Quetiapine Fumarate [SEROquel] 400 mg PO HS 12/07/18 06/02/19 06/01/19 History Enoxaparin 80 mg SUB-Q Q12HR #30 syringe 12/09/18 06/02/19 06/02/19 06:00 Rx HYDROcodone/APAP 7.5-325 [[place] 7.5 mg PO Q6H PRN #500 ml 12/09/18 06/02/19 Unknown Rx 7.5-325 mg per 15 ML] Furosemide [Lasix] 20 mg PO QDAY PRN #5 tablet 12/25/18 06/02/19 Unknown Rx Acetamin/Codeine 120-12Mg/5 ml 15 ml PO TID PRN 06/02/19 06/02/19 06/01/19 History [Tylenol/Codeine] Ondansetron [Zofran Oral Liq] 4 mg PO PRN PRN 06/02/19 06/02/19 06/01/19 History Active Medications Sodium Chloride (Nacl 0.9% 500 Ml) 500 mls @ 50 mls/hr IV DIRECT HERI Last Admin: 06/02/19 09:30 Dose: 50 mls/hr Documented by: Vancomycin HCl (Vancomycin/Ns 1 Gm/250 Ml) 1 gm in 250 mls @ 167.007 mls/hr IV PREOP NR; Protocol Stop: 06/02/19 23:59 Last Admin: 06/02/19 12:15 Dose: 250 mls Documented by: - Physical exam General appearance: no acute distress HEENT: Other (Swelling of head and neck) Lungs: Normal air movement - Brief post op/procedure progress note Date of procedure: 06/02/19 Pre-op diagnosis: Recurrent SVC syndrome, right Ramirez catheter malfunction, gastroparesis Post-op diagnosis: same Procedure: 1. Ultrasound-guided access of the right common femoral vein. 2. Selection of the SVC with venography. 3. Selection of the right internal jugular vein with venography. 4. Selection of the left innominate vein with venography. 5. Fluoroscopic guided removal of the right internal jugular tunneled, cuffed, Ramirez line. 6. Angioplasty of the left innominate vein with a 12 mm x 60 mm angioplasty balloon 7. Angioplasty of the right internal jugular vein with a 10 mm x 40 mm angioplasty balloon 8. Angioplasty of the SVC with a 12 mm x 60 mm angioplasty balloon and 14 mm x 40 mm angioplasty balloon 9. Ultrasound-guided access of the right internal jugular vein. 10. Fluoroscopic guided placement of a right internal jugular vein tunneled, cuffed, single-lumen Ramirez catheter. Anesthesia: MAC Surgeon: MAURICIO SOTO Estimated blood loss: minimal Condition: stable - Hospital course Hospital course: Patient tolerated procedure without issue. Patient has a headache which is improving and right neck pain which is expected after tunneled catheter removal and placement. - Disposition Condition at discharge: Stable Disposition: [id number] TO HOME OR SELFCARE - Discharge Diagnoses (1) Chronic superior vena cava occlusion Status: Acute (2) Occluded PICC line Status: Acute (3) Gastroparesis Status: Chronic (4) Superior vena cava syndrome Status: Chronic Short Stay Discharge Plan Activity: advance as tolerated Weight Bearing Status: Weight Bear as Tolerated Diet: per dietitian instruction Wound: keep clean and dry, other (do not get right neck area wet ; remove pressure dressing later tonight or tomorrow morning ; do not lift more than 10 lbs for 3-5 days) Follow up with: LUZ BURGOS MD [Primary Care Provider] - 7 Days Prescriptions: Morphine [Morphine ORAL SOLN 10 MG/5 ML] 10 mg PO Q4HR #100 ml
[2019-06-02] MEDS ORDERED: MIDAZOLAM 2 MG/2 ML INJ IV ONE (15:09)
--- NOTE | 2019-06-02 15:14 | Operative Report ---
Operative Report Operative Report: EXAM: 1. Ultrasound-guided access of the right common femoral vein. 2. Selection of the SVC with venography. 3. Selection of the right internal jugular vein with venography. 4. Selection of the left innominate vein with venography. 5. Fluoroscopic guided removal of the right internal jugular tunneled, cuffed, Hodge line. 6. Angioplasty of the left innominate vein with a 12 mm x 60 mm angioplasty balloon 7. Angioplasty of the right internal jugular vein with a 10 mm x 40 mm angioplasty balloon 8. Angioplasty of the SVC with a 12 mm x 60 mm angioplasty balloon and 14 mm x 40 mm angioplasty balloon 9. Ultrasound-guided access of the right internal jugular vein. 10. Fluoroscopic guided placement of a right internal jugular vein tunneled, cuffed, single-lumen Hodge catheter. DATE: 06/02/2019 SURGICAL SERVICES MANAGER: MAURICIO SOTO MD INDICATION: SVC syndrome, malfunctioning hodge catheter for glucose infusions, all secondary to gastroparesis with indwelling G and J tubes. MEDICATIONS: Please see nursing report for full details. DEVICES: Hodge catheter placement, right internal jugular vein, de juancho 10 mm x 40 mm angioplasty balloon 12 mm x 60 mm angioplasty balloon 14 mm x 40 mm angioplasty balloon ANESTHESIA: MAC CONTRAST: Please see laborer powerhouse report for full details. PROCEDURE: The risks, benefits, and alternatives were discussed with the patient. Written informed consent was obtained. The right neck and right groin were prepped and draped in a sterile fashion. The right common femoral vein was evaluated and was patent. Under direct ultrasound guidance, the right common femoral vein was accessed with a 21-gauge micropuncture needle. 0.018 inch wire was passed into the IVC. Needle was exchanged for transitional dilator. Wire was exchanged for 0.035 inch wire. Transitional dilator was ultimately exchanged for a 8 Latvian 65 cm sheath. The patient was partially heparinized. The right internal jugular vein was selected and digital subtraction angiography was performed demonstrating patency of the mid and upper portion of the right internal jugular vein, but 50% stenosis at the ostium. There was reflux of contrast into the subclavian vein which was 50 to 75% narrowed. At this point, under fluoroscopic guidance, the right internal jugular Hodge catheter was removed. This was performed in a stepwise fashion with infiltration of lidocaine, and then blunt removal of the cuff using a hemostat. Site was then closed using 4-0 Vicryl after it was cleaned with re-sterilized with ChloraPrep and was ultimately closed with Dermabond. The upper portion of the SVC was patent. The lower portion of the SVC was 80 to 90% narrowed. The Hodge catheter was immediately above the lower portion of the SVC. The left innominate vein was selected and digital subtraction angiography was performed demonstrating 20 to 30% of the central portion of the left innominate vein with patency of the rest of the left innominate vein and 50 to 75% narrowing of the left innominate vein as it passed into the SVC. The left innominate vein and the right innominate vein predominantly emptied through the azygos vein. The right subclavian vein was then selected and digital subtraction angiography was performed demonstrating irregularity and webs within the vein which was 50 to 75% narrowed. I attempted to cross this with multiple wires and catheters which were unsuccessful. 12 mm x 60 mm angioplasty balloon was then used to perform angioplasty of the left innominate vein. Digital subtraction angiography demonstrated that the flow of the left innominate vein was now into the SVC and there was no residual narrowing of the left innominate vein. The SVC was then angioplastied with a 12 mm x 60 mm angioplasty balloon and then a 14 mm x 40 mm angioplasty balloon. Digital subtraction angiography demonstrated 40% residual narrowing. The right internal jugular vein was selected. 10 mm x 40 mm angioplasty balloon was then used to perform angioplasty of the right internal jugular vein ostium into the right innominate vein. Digital subtraction angiography demonstrated a 20% residual narrowing. At this point, attention was turned towards the right neck. The right internal jugular vein was patent with ultrasound. Under direct ultrasound guidance, the right internal jugular vein was accessed with a 21-gauge micropuncture needle. 0.018 inch wire was passed into the internal jugular vein and into the IVC. Needle was exchanged for a transitional dilator. Wire was exchanged for 0.035 inch wire. Transitional dilator was exchanged for an 8 Latvian safe sheath. An appropriate dermatotomy site was identified and infiltrated with lidocaine. Stab incision was made with an 11 blade. Using a tunneler, the Hodge catheter was tunneled from the dermatotomy to the venotomy. Hodge catheter was then placed through the peel-away sheath under direct fluoroscopic guidance. Sheath was then removed. Hodge catheter was placed in the right atrium. The venotomy site was then closed with 4-0 Vicryl and Dermabond. Dermatotomy site was secured with 3-0 Ethilon. 200 units of heparin per mL of space was infused with a Hodge catheter and and attached to a one-way valve. Sterile dressing, and Biopatch were applied. Mild pressing dressing was applied. The right common femoral wires, sheaths, and catheters were all removed and pressure was held until hemostasis was achieved. Sterile dressing applied. Patient tolerated procedure well. No immediate postprocedural complication. FINDINGS: Please see procedure note above. IMPRESSION: 1. Successful removal of the right internal jugular Hodge catheter, tunneled. 2. Successful placement of a right internal jugular Hodge catheter, de juancho. 3. Successful selection of the left innominate vein with angioplasty. 4. Successful selection of the right internal jugular vein with angioplasty 5. Successful selection and angioplasty of the SVC. 6. Successful selection of the right subclavian vein but inability to cross the occlusion.
[2019-06-02] MEDS: HYDROmorphone 1 MG/1 ML INJ IV PRN ×2 (15:15→15:25)
[2019-06-02] MEDS ORDERED: SODIUM CHLORIDE 0.9% 1000 ML 1,000 ML ONE (15:18)
[2019-06-02] MEDS ORDERED: diphenhydrAMINE 50 MG/ML VIAL ONE (15:21)
[2019-06-02] MEDS ORDERED: diphenhydrAMINE 50 MG/ML VIAL IV ONE ×2 (15:30→15:35)
[2019-06-02] MEDS ORDERED: FAMOTIDINE 20 MG/2 ML INJ IV ONE (15:52)
[2019-06-02 16:43] VITALS: BP 117/71
--- NOTE | 2019-06-02 17:22 | Post Anesthesia Evaluation ---
- Post Anesthesia Evaluation Patient Participated: Yes Airway Patent: Yes Stable Respiratory Function: Yes Nausea/Vomiting: No Temp > 96.8F: Yes Pain Manageable: Yes Adequeate Hydration: Yes Anesthesia Complications: No Other Comments: On arrival to PACU, patient had episodes of irratic jerking movements lasting several minutes which did not appear seizure-like in nature. VS remained stable within acceptable range. Patient was awake, alert, without evidence of neurologic deficit at time of d/c from PACU.
== END 2019-06-02 17:11 | disposition home or self-care (01) ==
LOC: CATHLABREC 07:50
PROVIDERS: ATTEND Radiology Diagnostic Radiology
DX: I87.1 Compression of vein (principal); I82.210 Acute embolism and thrombosis of superior vena cava; J90 Pleural effusion, not elsewhere classified; D64.9 Anemia, unspecified; E11.649 Type 2 diabetes mellitus with hypoglycemia without coma; Z88.0 Allergy status to penicillin; Z79.01 Long term (current) use of anticoagulants; Z79.899 Other long term (current) drug therapy; Z86.718 Personal history of other venous thrombosis and embolism; Z86.39 Personal history of other endocrine, nutritional and metabolic disease; Z90.49 Acquired absence of other specified parts of digestive tract; Z90.710 Acquired absence of both cervix and uterus; Z91.81 History of falling; Z83.3 Family history of diabetes mellitus; Z80.8 Family history of malignant neoplasm of other organs or systems; Z98.890 Other specified postprocedural states; Z88.8 Allergy status to other drugs, medicaments and biological substances
CPT/HCPCS: 36011; 36415; 36558; 36589; 37248; 37249; 75827; 77001; 80048; 82962; 85027; 85610; 85730; 96374; 96375; C1725; C1752; C1769; C1887; J1170; J1200; J1644; J2250; J2405; J2704; J3370; J7030; J7040; 76937; Q9967

== ENCOUNTER 2020-02-15 07:43 | Day surgery (SDC) | payer MEDICARE ==
[2020-02-15 08:52] LABS: Basophils % (Auto) 0.3 % (0.0-1.8); Hematocrit 34.2 % (30.3-42.9); Hemoglobin 11.3 gm/dl (10.1-14.3); Lymphocytes # (Auto) 1.3 K/mm3 (1.2-5.4); Lymphocytes % (Auto) 18.4 % (13.4-35.0); Mean Corpuscular HGB Conc 33 % (30-34); Mean Corpuscular Volume 90 fl (79-97); Monocytes # (Auto) 0.6 K/mm3 (0.0-0.8); Monocytes % (Auto) 7.9 % (0.0-7.3); Platelet Count 219 K/mm3 (140-440); Red Cell Distribution Width 14.6 % (13.2-15.2)
[2020-02-15] MEDS ORDERED: SODIUM CHLORIDE 0.9% 500 ML 500 ML IV SCH (09:00)
[2020-02-15 09:01] LABS: INR 0.92 (0.87-1.13)
[2020-02-15 09:02] LABS: Partial Thromboplastin Time 29.2 Sec. (24.2-36.6)
[2020-02-15 09:04] LABS: Blood Urea Nitrogen 7 mg/dL (7-17); Calcium 9.3 mg/dL (8.4-10.2); Hemolysis Index 1
[2020-02-15 09:12] LABS: BUN/Creatinine Ratio 10
[2020-02-15] MEDS ORDERED: HYDROmorphone 2 MG/1 ML INJ IV PRN (10:02)
[2020-02-15] MEDS ORDERED: ONDANSETRON 4 MG/2 ML INJ IV NR (10:02)
--- NOTE | 2020-02-15 10:05 | Anesthesia Consultation ---
Anesthesia Consult and Med Hx Date of service: 02/15/20 - Airway Anesthetic Teeth Evaluation: Good ROM Head & Neck: Adequate Mental/Hyoid Distance: Adequate Mallampati Class: Class II Intubation Access Assessment: Probably Good - Pulmonary Exam CTA: Yes - Cardiac Exam Cardiac Exam: RRR - Pre-Operative Health Status ASA Pre-Surgery Classification: ASA3 Proposed Anesthetic Plan: MAC - Pulmonary Hx Smoking: Yes Hx Respiratory Symptoms: No - Cardiovascular System Hx Hypertension: No Hx Heart Attack/AMI: No Hx Percutaneous Transluminal Coronary Angioplasty (PTCA): No Hx Cardia Arrhythmia: No Hx Peripheral Vascular Disease: Yes (right upper arm vein thrombosis, SVC stenosis) - Central Nervous System Hx Seizures: No CVA: No Hx Psychiatric Problems: Yes - Gastrointestinal Hx Gastroesophageal Reflux Disease: No (G-tube in-situ for gastroparesis) - Endocrine Hx Renal Disease: No Hx Liver Disease: No Hx Non-Insulin Dependent Diabetes: Yes (occasional hypoglycemia) Hx Thyroid Disease: No - Other Systems Hx Obesity: No - Additional Comments Anesthesia Medical History Comments: Previous anesthesia record reviewed. Patient reports previous anesthetic worked well for her without complications.
[2020-02-15] MEDS ORDERED: HYDROmorphone 1 MG/1 ML INJ ONE ×3 (10:16→10:27)
[2020-02-15] MEDS ORDERED: LIDOCAINE MPF (2%) 20 MG/1 ML VIAL 5 ML ONE (10:26)
[2020-02-15] MEDS ORDERED: propofoL 200 MG/20 ML VIAL IV ONE ×5 (10:27→12:07)
[2020-02-15] MEDS ORDERED: HEPARIN/NS 5000 UNIT/500ML 1,000 ML IR ONE (10:47)
[2020-02-15] MEDS ORDERED: LIDOCAINE 1%/EPINEPHRINE 1:100,000 VIAL (20 ML) INFILTRATI ONE (10:49)
[2020-02-15] MEDS ORDERED: VANCOMYCIN 1,250 MG in SODIUM CHLORIDE 0.9% 250ML 250 ML IV SCH (11:00)
[2020-02-15] MEDS ORDERED: VANCOMYCIN 1,250 MG in SODIUM CHLORIDE 0.9% 500 ML 500 ML IV ONE (11:00)
[2020-02-15] MEDS: HEPARIN 10,000 UNITS/10 ML VIAL ONE ×3 (11:27→12:45)
[2020-02-15] MEDS ORDERED: HEPARIN/NS 5000 UNIT/500ML 500 ML IR ONE (11:48)
--- NOTE | 2020-02-15 12:58 | Short Stay Summary ---
Short Stay Documentation Date of service: 02/15/20 Narrative H&P: 43-year-old female with gastroparesis, venting G-tube, and feeding J-tube with chronic Ramirez due to chronic hypoglycemia who was having Ramirez catheter malfunction and recurrent SVC syndrome symptoms. - History Principal diagnosis: SVC syndrome and Ramirez catheter malfunction H&P: obtained from office - Allergies and Medications Current Medications: Allergies dexamethasone [From Decadron] Allergy (Verified 12/25/18 16:29) Angioedema diazepam [From Valium] Allergy (Verified 12/25/18 16:29) Angioedema ketorolac [From Toradol] Allergy (Verified 12/25/18 16:29) Swelling metoclopramide [From Reglan] Allergy (Verified 12/25/18 16:29) Unknown Penicillins Allergy (Verified 12/25/18 16:29) Swelling prochlorperazine [From Compazine] Allergy (Verified 12/25/18 16:29) Unknown promethazine [From Phenergan] Allergy (Verified 12/25/18 16:29) Swelling tramadol Allergy (Verified 12/25/18 16:29) Swelling adhesive tape Adverse Reaction (Verified 12/25/18 16:29) Itching fentanyl Adverse Reaction (Verified 12/25/18 16:29) Dizziness Apple Allergy (Uncoded 06/09/18 15:36) Swelling Sour cream Allergy (Uncoded 06/09/18 15:36) Swelling Whip cream Allergy (Uncoded 06/09/18 15:36) Swelling Home Medications Medication Instructions Recorded Confirmed Last Taken Type Quetiapine Fumarate [SEROquel] 400 mg PO HS 12/07/18 02/15/20 02/14/20 History 400 mg Enoxaparin 80 mg SUB-Q Q12HR #30 syringe 12/09/18 02/15/20 02/14/20 Rx 80 mg Ondansetron [Zofran Oral Liq] 4 mg PO PRN PRN 06/02/19 02/15/20 02/14/20 History 4 mg Saccharomyces Boulardii [Probiotic] 250 mg PO BID #60 capsule 09/01/19 02/15/20 02/14/20 Rx 250 mg Acetaminophen/Codeine [Tylenol 1 tab PO Q4HR PRN #40 tablet 10/27/19 02/15/20 02/14/20 Rx /Codeine # 3 tab] 1 HYDROcodone/APAP 5-325 [[place] 1 each PO Q6HR PRN #7 tablet 11/29/19 02/15/20 02/14/20 Rx 5/325] 1 Phenazopyridine [Pyridium] 200 mg PO TID #6 tab 11/29/19 02/15/20 02/13/20 Rx 200 mg Active Medications Hydromorphone HCl (Dilaudid) 0.5 mg IV PRN PRN PRN Reason: Pain , Severe (7-10) Stop: 02/15/20 16:00 Sodium Chloride (Nacl 0.9% 500 Ml) 500 mls @ 50 mls/hr IV DIRECT HERI Ondansetron HCl (Zofran) 4 mg IV ONCE NR Stop: 02/15/20 13:00 Last Admin: 02/15/20 10:20 Dose: 4 mg Documented by: - Physical exam General appearance: mild distress Lungs: Normal air movement Gastrointestinal: normal - Brief post op/procedure progress note Date of procedure: 02/15/20 Pre-op diagnosis: SVC syndrome Post-op diagnosis: same Procedure: 1. Ultrasound guided access of the right common femoral vein 2. Selection of SVC with venography 3. Selection of the right brachiocephalic vein with venography 4. Selection of the right internal jugular vein with venography 5. Angioplasty of the right internal jugular vein, right brachiocephalic vein, SVC with a 10 mm x 40 mm and 12 mm x 60 mm angioplasty balloon 6. Angioplasty of the upper and lower SVC and 12 mm x 40 mm iNPACT balloon 7. Selection of the right subclavian vein with venography and inability to cross the lesion 8. Fluoroscopic guided exchange of the right internal jugular 9.6 Bah[place]ian Ramirez catheter Anesthesia: MAC Surgeon: MAURICIO SOTO Estimated blood loss: minimal Condition: stable - Hospital course Hospital course: Patient tolerated the procedure well. No immediate postprocedural complications. - Disposition Condition at discharge: Stable Disposition: [id number] TO HOME OR SELFCARE - Discharge Diagnoses (1) Extrinsic compression of artery Status: Acute (2) Chronic superior vena cava occlusion Status: Acute (3) GERD (gastroesophageal reflux disease) Status: Chronic (4) Gastroparesis Status: Chronic (5) Superior vena cava syndrome Status: Chronic Short Stay Discharge Plan Activity: advance as tolerated Weight Bearing Status: Weight Bear as Tolerated Diet: advance as tolerated Wound: keep clean and dry Special Instructions: other (Take antibiotics for 21 days) Additional Instructions: follow up with Primary Medical Doctor in 1 week, return to Emergency Room(ER) for medical emergency. Follow up with: PRIMARY CARE, [Primary Care Provider] - 7 Days Prescriptions: Sulfamethoxazole/Trimethoprim [Bactrim DS TAB] 1 each PO BID 21 Days #42 tablet
--- NOTE | 2020-02-15 13:04 | Operative Report ---
Operative Report Operative Report: EXAM: 1. Ultrasound guided access of the right common femoral vein 2. Selection of SVC with venography 3. Selection of the right brachiocephalic vein with venography 4. Selection of the right internal jugular vein with venography 5. Angioplasty of the right internal jugular vein, right brachiocephalic vein, SVC with a 10 mm x 40 mm and 12 mm x 60 mm angioplasty balloon 6. Angioplasty of the upper and lower SVC and 12 mm x 40 mm iNPACT balloon 7. Selection of the right subclavian vein with venography and inability to cross the lesion 8. Fluoroscopic guided exchange of the right internal jugular 9.6 Turkmen Ramirez catheter DATE: 02/15/2020 CASINO ENFORCEMENT AGENT: MAURICIO SOTO MD INDICATION: Thrombotic occlusion of the SVC requiring thrombectomy with chronic residual deep venous thrombus and extrinsic compression from the central vessels in a patient who presents for recurrent SVC syndrome symptoms. This is all secondary to gastroparesis requiring indwelling Ramirez catheter line. Ramirez catheter malfunction as well. MEDICATIONS: Please see nursing report for full details. DEVICES: Ramirez catheter placement, right internal jugular vein, de juancho 10 mm x 40 mm angioplasty balloon 12 mm x 60 mm angioplasty balloon 12 mm x 40 mm iNPACT balloon ANESTHESIA: MAC CONTRAST: Please see seed laboratory technician report for full details. PROCEDURE: The risks, benefits, and alternatives were discussed with the patient. Written informed consent was obtained. The right neck and right groin were prepped and draped in a sterile fashion. The right common femoral vein was evaluated and was patent. Under direct ultrasound guidance, the right common femoral vein was accessed with a 21-gauge micropuncture needle. 0.018 inch wire was passed into the IVC. Needle was exchanged for transitional dilator. Wire was exchanged for 0.035 inch wire. Transitional dilator was ultimately exchanged for a 10 Turkmen 35 cm sheath which coaxially had a 7 Turkmen 65 cm sheath passed within it. The patient was partially heparinized. I then selected the SVC, right innominate vein, and right internal jugular vein. Digital subtraction angiography was performeds. The right internal jugular vein was selected and digital subtraction angiography was performed demonstrating patency of the mid and upper portion of the right internal jugular vein, but 50% stenosis at the ostium. Sheath was retracted over the wire and digital subtraction angiography was performed in the SVC demonstrating a 90% upper SVC stenosis, patency of the mid SVC, and a 40% lower SVC stenosis. The Ramirez catheter was then infiltrated with lidocaine and the cuff was then removed with a hemostat with blunt dissection. 0.035 inch stiff Glidewire was then passed through the Ramirez catheter and into the IVC and the Ramirez catheter was retracted into the right internal jugular vein. The right internal jugular vein was selected. 10 mm x 40 mm angioplasty balloon was then used to perform angioplasty of the right internal jugular vein ostium into the right innominate vein. This was then used to perform angioplasty of the SVC. Digital subtraction angiography demonstrated a 20% narrowing of the internal jugular vein ostium, and 50% narrowing of the upper portion of the SVC with 40% narrowing of the lower part of the SVC. 12 mm x 60 mm angioplasty balloon was used to perform angioplasty of the SVC. Afterwards, 12 mm x 40 mm iNPACT angioplasty balloon was used to perform angioplasty of the upper and lower SVC. Digital subtraction angiography was performed demonstrated 30% residual narrowing of the upper part of the SVC and 20% residual narrowing of the lower part of the SVC. At this point, attention was turned towards the right neck. At this point, the Ramirez catheter was then removed over the wire completely and the sites were cleaned with ChloraPrep and the wire was cleaned with ChloraPrep. A new Ramirez line was then advanced over the wire and passed into the proximal right atrium under fluoroscopic guidance. Wire was removed. Catheter was able to aspirate and flushed without issue. Line was locked with 200 units of heparin per mL of space. Catheter was secured with 3-0 Ethilon. Sterile dressing, and Biopatch were applied. At this point, attempts were made to cross the right subclavian vein narrowing. The right subclavian vein was selected and digital subtraction angiography was performed demonstrating severe narrowing within the right central portion of the subclavian vein with a short segment occlusion. Despite multiple attempts with multiple different wires, the subclavian vein could not be crossed. The right common femoral wires, sheaths, and catheters were all removed and pressure was held until hemostasis was achieved. Sterile dressing applied. Patient tolerated procedure well. No immediate postprocedural complication. FINDINGS: Please see procedure note above. IMPRESSION: 1. Successful exchange of the right internal jugular Ramirez catheter, tunneled. 2. Successful selection of the right subclavian vein with angiography 3. Successful selection of the right internal jugular vein with angiography and angioplasty 4. Successful selection and angioplasty of the SVC.
[2020-02-15] MEDS ORDERED: diphenhydrAMINE 50 MG/ML VIAL ONE (13:45)
[2020-02-15] MEDS ORDERED: diphenhydrAMINE 50 MG/ML VIAL IV SCH (14:00)
--- NOTE | 2020-02-15 14:46 | Anesthesia Day of Surgery ---
Anesthesia Day of Surgery - Day of Surgery Patient Examined: Yes Patient H&P Reviewed: Yes Patient is NPO: Yes
[2020-02-15] MEDS ORDERED: HYDROcodone/ACETAMINOPHEN 5-325 MG TAB PO ONE (16:14)
[2020-02-15 17:03] VITALS: BP 107/69
== END 2020-02-15 07:44 | disposition home or self-care (01) ==
LOC: CATHLABREC 07:43
PROVIDERS: ATTEND Radiology Diagnostic Radiology
DX: I87.1 Compression of vein (principal); K31.84 Gastroparesis; T80.218A Other infection due to central venous catheter, initial encounter; E11.9 Type 2 diabetes mellitus without complications; K21.9 Gastro-esophageal reflux disease without esophagitis; D64.9 Anemia, unspecified; Z98.890 Other specified postprocedural states; Z80.8 Family history of malignant neoplasm of other organs or systems; Z83.3 Family history of diabetes mellitus; Z88.8 Allergy status to other drugs, medicaments and biological substances; Z88.0 Allergy status to penicillin; Z79.899 Other long term (current) drug therapy; Z86.718 Personal history of other venous thrombosis and embolism; Z90.49 Acquired absence of other specified parts of digestive tract; Z90.710 Acquired absence of both cervix and uterus; Z98.82 Breast implant status; Z91.81 History of falling; Y82.8 Other medical devices associated with adverse incidents; Y92.89 Other specified places as the place of occurrence of the external cause
CPT/HCPCS: 36012; 36415; 36581; 37248; 37249; 75820; 75827; 76937; 77001; 80048; 82962; 85025; 85610; 85730; C1725; C1752; C1769; C1887; C1894; J1170; J1200; J1644; J2405; J2704; J3370; J7040; J7050; Q9967

== ENCOUNTER 2020-03-25 14:28 | Emergency (ER) | payer MEDICARE ==
[2020-03-25 15:47] LABS: Hematocrit 37.5 % (30.3-42.9); Hemoglobin 12.2 gm/dl (10.1-14.3); Mean Corpuscular HGB Conc 33 % (30-34); Mean Corpuscular Volume 91 fl (79-97); Platelet Count 226 K/mm3 (140-440); Red Blood Count 4.12 M/mm3 (3.65-5.03); Red Cell Distribution Width 15.9 % (13.2-15.2)
[2020-03-25 16:00] LABS: Alanine Aminotransferase 18 units/L (7-56); Albumin 4.2 g/dL (3.9-5); BUN/Creatinine Ratio 11; Blood Urea Nitrogen 9 mg/dL (7-17); Calcium 9.4 mg/dL (8.4-10.2); Hemolysis Index 66
[2020-03-25] MEDS ORDERED: ONDANSETRON 4 MG/2 ML INJ IV ONE ×2 (16:19→19:54)
[2020-03-25] MEDS ORDERED: MORPHINE 4 MG/1 ML INJ IV ONE ×2 (16:19→18:17)
[2020-03-25] MEDS ORDERED: SODIUM CHLORIDE 0.9% 1000 ML 1,000 ML IV ONE ×2 (16:19→19:02)
--- NOTE | 2020-03-25 16:35 | Emergency Department Report ---
ED Abdominal Pain HPI - General Chief Complaint: Abdominal Pain Stated Complaint: FEEDTUBE SMELL/ABD PAIN/DIARRHEA/VOMITING Time Seen by Provider: 03/25/20 15:50 Source: patient Mode of arrival: Ambulatory Limitations: No Limitations - History of Present Illness Initial Comments: Is a 44-year-old female with past medical history of gastric paresis who p resents to the emergency department with complaint of abdominal pain. Patient has had a G-tube as well as a J-tube placed she states she is been able to flush her feedings but she has had vomiting. She also has had puslike drainage from her G-tube. She is also had some vomiting and diarrhea. She denies any blood in the use. Patient states she has a history of gastroparesis and has a reason she has those symptoms. She denies any fevers chills. She follows with Dr. Arthur. Severity scale (0 -10): 10 - Related Data Home Medications Medication Instructions Recorded Confirmed Last Taken Quetiapine Fumarate [SEROquel] 400 mg PO HS 12/07/18 02/15/20 02/14/20 400 mg Ondansetron [Zofran Oral Liq] 4 mg PO PRN PRN 06/02/19 02/15/20 02/14/20 4 mg Previous Rx's Medication Instructions Recorded Last Taken Type Enoxaparin 80 mg SUB-Q Q12HR #30 syringe 12/09/18 02/14/20 Rx 80 mg Saccharomyces Boulardii [Probiotic] 250 mg PO BID #60 capsule 09/01/19 02/14/20 Rx 250 mg Acetaminophen/Codeine [Tylenol 1 tab PO Q4HR PRN #40 tablet 10/27/19 02/14/20 Rx /Codeine # 3 tab] 1 HYDROcodone/APAP 5-325 [[place] 1 each PO Q6HR PRN #7 tablet 11/29/19 02/14/20 Rx 5/325] 1 Phenazopyridine [Pyridium] 200 mg PO TID #6 tab 11/29/19 02/13/20 Rx 200 mg Sulfamethoxazole/Trimethoprim 1 each PO BID 21 Days #42 tablet 02/15/20 Unknown Rx [Bactrim DS TAB] Acetaminophen/Codeine [Tylenol 1 tab PO Q6H PRN 3 Days #12 tab 01/01/21 Unknown Rx /Codeine # 3 tab] Sulfamethoxazole/Trimethoprim 1 each PO BID 7 Days #14 tablet 03/25/20 Unknown Rx [Bactrim DS TAB] Allergies Allergy/AdvReac Type Severity Reaction Status Date / Time dexamethasone [From Decadron] Allergy Angioedema Verified 12/25/18 16:29 diazepam [From Valium] Allergy Angioedema Verified 12/25/18 16:29 ketorolac [From Toradol] Allergy Swelling Verified 12/25/18 16:29 metoclopramide [From Reglan] Allergy Unknown Verified 12/25/18 16:29 Penicillins Allergy Swelling Verified 12/25/18 16:29 prochlorperazine Allergy Unknown Verified 12/25/18 16:29 [From Compazine] promethazine [From Phenergan] Allergy Swelling Verified 12/25/18 16:29 tramadol Allergy Swelling Verified 12/25/18 16:29 adhesive tape AdvReac Itching Verified 12/25/18 16:29 fentanyl AdvReac Dizziness Verified 12/25/18 16:29 Apple Allergy Swelling Uncoded 06/09/18 15:36 Sour cream Allergy Swelling Uncoded 06/09/18 15:36 Whip cream Allergy Swelling Uncoded 06/09/18 15:36 ED Review of Systems ROS: Stated complaint: FEEDTUBE SMELL/ABD PAIN/DIARRHEA/VOMITING Other details as noted in HPI Constitutional: denies: chills, fever Eyes: denies: eye discharge ENT: denies: throat pain, dental pain Respiratory: denies: shortness of breath Cardiovascular: denies: dyspnea on exertion Endocrine: no symptoms reported Gastrointestinal: as per HPI Genitourinary: denies: dysuria Musculoskeletal: denies: back pain Skin: denies: rash Neurological: denies: headache Psychiatric: denies: anxiety Hematological/Lymphatic: denies: easy bleeding ED Past Medical Hx - Past Medical History Previous Medical History?: Yes Hx Hypertension: No Hx Heart Attack/AMI: No Hx Diabetes: Yes Hx Deep Vein Thrombosis: Yes Hx GERD: Yes Hx Liver Disease: No Hx Renal Disease: No Hx Sickle Cell Disease: No Hx Seizures: No Hx Asthma: No Hx COPD: No Hx HIV: No Additional medical history: Gastroparesis, Unable to eat or drink on TPN 18 hours a day and IVF 2 hours a day, REBEL Button, SEPSIS. hypoglycemia////G-tube and J-tube. SVC Syndrome - Surgical History Past Surgical History?: Yes Hx Pacemaker: No Hx Internal Defibrillator: No Hx Cholecystectomy: Yes Hx Breast Surgery: (yes, augmentation) Additional Surgical History: Infusaport left chest wall. G-tube(2016) and J- tube(2017), Hysterectomy. Breast augmentation, PICC line. Inferior Vena Cava I mplant - Social History Smoking Status: Never Smoker - Medications Home Medications: Home Medications Medication Instructions Recorded Confirmed Last Taken Type Quetiapine Fumarate [SEROquel] 400 mg PO HS 12/07/18 02/15/20 02/14/20 History 400 mg Enoxaparin 80 mg SUB-Q Q12HR #30 syringe 12/09/18 02/15/20 02/14/20 Rx 80 mg Ondansetron [Zofran Oral Liq] 4 mg PO PRN PRN 06/02/19 02/15/20 02/14/20 History 4 mg Saccharomyces Boulardii [Probiotic] 250 mg PO BID #60 capsule 09/01/19 02/15/20 02/14/20 Rx 250 mg Acetaminophen/Codeine [Tylenol 1 tab PO Q4HR PRN #40 tablet 10/27/19 02/15/20 02/14/20 Rx /Codeine # 3 tab] 1 HYDROcodone/APAP 5-325 [[place] 1 each PO Q6HR PRN #7 tablet 11/29/19 02/15/20 02/14/20 Rx 5/325] 1 Phenazopyridine [Pyridium] 200 mg PO TID #6 tab 11/29/19 02/15/20 02/13/20 Rx 200 mg Sulfamethoxazole/Trimethoprim 1 each PO BID 21 Days #42 tablet 02/15/20 Unknown Rx [Bactrim DS TAB] Acetaminophen/Codeine [Tylenol 1 tab PO Q6H PRN 3 Days #12 tab 03/25/20 Unknown Rx /Codeine # 3 tab] Sulfamethoxazole/Trimethoprim 1 each PO BID 7 Days #14 tablet 03/25/20 Unknown Rx [Bactrim DS TAB] ED Physical Exam - General Limitations: No Limitations General appearance: alert, in no apparent distress - Head Head exam: Present: atraumatic, normocephalic - Eye Eye exam: Present: normal appearance Pupils: Present: normal accommodation - ENT ENT exam: Present: normal exam - Neck Neck exam: Present: normal inspection - Respiratory Respiratory exam: Present: normal lung sounds bilaterally. Absent: respiratory distress, chest wall tenderness - Cardiovascular Cardiovascular Exam: Present: regular rate, normal rhythm, normal heart sounds - GI/Abdominal GI/Abdominal exam: Present: soft, tenderness, other (G and J-tube in place. The G-tube has areas of mild erythema and drainage surrounding it.). Absent: distended - Rectal Rectal exam: Present: deferred - Extremities Exam Extremities exam: Present: normal inspection - Back Exam Back exam: Present: normal inspection - Neurological Exam Neurological exam: Present: alert, oriented X3 - Psychiatric Psychiatric exam: Present: normal affect - Skin Skin exam: Present: warm, dry, intact ED Course Vital Signs 03/25/20 03/25/20 14:40 16:42 Temperature 97.9 F Pulse Rate 90 Respiratory 16 Rate Blood Pressure 120/78 Blood Pressure 125/80 [Right] O2 Sat by Pulse 97 Oximetry - Reevaluation(s) Reevaluation #1: 03/25/20 19:[address] result which did not show any acute abnormality of her giardiasis. There is no area of abscess. Patient states that this may be a flare which she gets periodically for which she takes Tylenol 3 as well as Bactrim for. I will fill those medications for her. She will take Zofran as tolerated. She will follow-up with her singing waiter or waitress. If her symptoms worsen she is instructed to the emergency department. ED Medical Decision Making - Lab Data Result diagrams: 03/25/20 15:27 03/25/20 15:27 - Medical Decision Making Patient is a 44-year-old female with history of diabetic gastroparesis here with complaints of abdominal pain and drainage from around her G-tube. Will ev aluate for obstruction, infection or other abnormality with a CT scan. We will give patient IV fluids, Zofran, morphine for her symptoms. Critical care attestation.: If time is entered above; I have spent that time in minutes in the direct care of this critically ill patient, excluding procedure time. ED Disposition Clinical Impression: Gastroparesis, Abdominal pain Disposition: - TO HOME OR SELFCARE Is pt being admited?: No Does the pt Need Aspirin: No Condition: Stable Instructions: Abdominal Pain (ED), Gastroparesis, Abdominal Pain, Adult Prescriptions: Sulfamethoxazole/Trimethoprim [Bactrim DS TAB] 1 each PO BID 7 Days #14 tablet Acetaminophen/Codeine [Tylenol /Codeine # 3 tab] 1 tab PO Q6H PRN 3 Days #12 tab PRN Reason: Pain, Moderate (4-6) Referrals: PRIMARY MD PERLA [Primary Care Provider] - 3-5 Days JOSELYN MIMS MD [Referring] - 3-5 Days
[2020-03-25 16:45] VITALS: BP 120/78
--- NOTE | 2020-03-25 17:44 | Cat Scan Report ---
CT abdomen pelvis w con INDICATION: n/v/d pus like drainage from her G tube. TECHNIQUE: All CT scans at this location are performed using CT dose reduction for ALARA by means of automated e xposure control. COMPARISON: 11/29/2019 FINDINGS: Lung bases are clear of acute disease. Liver, gallbladder, spleen, pancreas, kidneys and left adrenal are negative. Small right adrenal nodule is unchanged and low in attenuation, thought to represent b enign adenoma. Incidentally, both kidneys are supplied partially by retrocrural arteries. PEG tube po sition is unchanged. Jejunostomy tube position is also unchanged, and the bowel appears unremarkable. Pelvis Urinary bladder and distal ureters are negative. Uterus is absent. IMPRESSION: 1. PEG tube and jejunostomy tube positions are unchanged. No appreciable bowel abnormalities. Signer Name: Abelardo Guzman MD Signed: 03/25/2020 5:40 PM Workstation Name: [id number]
[2020-03-25 18:12] LABS: Anisocytosis 1+; Platelet Estimate Consistent w Auto; Total Cells Counted 100
[2020-03-25] MEDS ORDERED: HYDROmorphone 1 MG/1 ML INJ IV ONE (19:01)
[2020-03-25] MEDS ORDERED: ONDANSETRON 4 MG/2 ML INJ ONE (19:55)
== END 2020-03-25 20:40 | disposition home or self-care (01) ==
LOC: ED 14:28
DX: E11.43 Type 2 diabetes mellitus with diabetic autonomic (poly)neuropathy (principal); K31.84 Gastroparesis; R10.9 Unspecified abdominal pain; Z98.890 Other specified postprocedural states; Z79.899 Other long term (current) drug therapy; Z88.8 Allergy status to other drugs, medicaments and biological substances
CPT/HCPCS: 36415; 74177; 80053; 83690; 84703; 85007; 85025; 96361; 96374; 96375; 96376; 99284; J1170; J2270; J2405; J7030; Q9967

== ENCOUNTER 2020-04-26 09:46 | Day surgery (SDC) | payer MEDICARE ==
[2020-04-26] MEDS ORDERED: SODIUM CHLORIDE 0.9% 1000 ML 1,000 ML IV SCH (11:00)
[2020-04-26 11:23] LABS: Basophils % (Auto) 0.6 % (0.0-1.8); Hematocrit 35.2 % (30.3-42.9); Hemoglobin 11.8 gm/dl (10.1-14.3); Lymphocytes # (Auto) 1.6 K/mm3 (1.2-5.4); Lymphocytes % (Auto) 29.7 % (13.4-35.0); Mean Corpuscular HGB Conc 34 % (30-34); Mean Corpuscular Volume 90 fl (79-97); Monocytes # (Auto) 0.4 K/mm3 (0.0-0.8); Monocytes % (Auto) 7.5 % (0.0-7.3); Platelet Count 207 K/mm3 (140-440); Red Blood Count 3.92 M/mm3 (3.65-5.03); Red Cell Distribution Width 15.6 % (13.2-15.2)
[2020-04-26] MEDS ORDERED: ONDANSETRON 4 MG/2 ML INJ ONE ×2 (11:29→16:31)
[2020-04-26] MEDS ORDERED: ONDANSETRON 4 MG/2 ML INJ IV NR (11:30)
[2020-04-26 11:39] LABS: INR 0.9 (0.87-1.13)
[2020-04-26 11:40] LABS: Partial Thromboplastin Time 26.3 Sec. (24.2-36.6)
[2020-04-26] MEDS ORDERED: HYDROmorphone 1 MG/1 ML INJ IV PRN ×2 (11:45→11:46)
--- NOTE | 2020-04-26 11:45 | Anesthesia Consultation ---
Anesthesia Consult and Med Hx Date of service: 04/26/20 - Airway Anesthetic Teeth Evaluation: Good ROM Head & Neck: Adequate Mental/Hyoid Distance: Adequate Mallampati Class: Class I Intubation Access Assessment: Good - Pulmonary Exam CTA: Yes - Cardiac Exam Cardiac Exam: RRR - Pre-Operative Health Status ASA Pre-Surgery Classification: ASA3 Proposed Anesthetic Plan: MAC - Pulmonary Hx Smoking: Yes Hx Respiratory Symptoms: No - Cardiovascular System Hx Hypertension: No Hx Heart Attack/AMI: No Hx Percutaneous Transluminal Coronary Angioplasty (PTCA): No Hx Cardia Arrhythmia: No Hx Peripheral Vascular Disease: Yes (right upper arm vein thrombosis, SVC steno sis) - Central Nervous System CVA: No Hx Psychiatric Problems: Yes - Gastrointestinal Hx Gastroesophageal Reflux Disease: No (G-tube in-situ for gastroparesis) - Endocrine Hx Renal Disease: No Hx Liver Disease: No Hx Non-Insulin Dependent Diabetes: Yes (occasional hypoglycemia) Hx Thyroid Disease: No - Other Systems Hx Obesity: No - Additional Comments Anesthesia Medical History Comments: Has had similar procedure many times under MAC in recent months without complications. Previous anesthesia records reviewed.
--- NOTE | 2020-04-26 11:45 | Anesthesia Day of Surgery ---
Anesthesia Day of Surgery - Day of Surgery Patient Examined: Yes Patient H&P Reviewed: Yes Patient is NPO: Yes
[2020-04-26] MEDS ORDERED: diphenhydrAMINE 50 MG/ML VIAL IV PRN (11:46)
[2020-04-26 12:04] LABS: Blood Urea Nitrogen 9 mg/dL (7-17); Hemolysis Index 24
[2020-04-26] MEDS ORDERED: MIDAZOLAM 2 MG/2 ML INJ ONE ×2 (12:04→12:28)
[2020-04-26] MEDS ORDERED: HYDROmorphone 1 MG/1 ML INJ ONE (12:05)
[2020-04-26 12:12] LABS: BUN/Creatinine Ratio 13
[2020-04-26] MEDS ORDERED: HEPARIN/NS 5000 UNIT/500ML 500 ML IR ONE ×2 (12:39→12:40)
[2020-04-26] MEDS ORDERED: LIDOCAINE (2%) 20 MG/1 ML VIAL 20 ML MDV INFILTRATI ONE (12:39)
[2020-04-26] MEDS ORDERED: HEPARIN 10,000 UNITS/10 ML VIAL ONE (14:04)
[2020-04-26] MEDS: LIDOCAINE 2%/EPINEPHRINE 1:100,000 VIAL (20 ML) INFILTRATI ONE ×4 (14:18→15:00)
--- NOTE | 2020-04-26 15:26 | Short Stay Summary ---
Short Stay Documentation Date of service: 04/26/20 Narrative H&P: 43-year-old female with gastroparesis, venting G-tube, and feeding J-tube with chronic Hodge due to chronic hypoglycemia who was having Hodge catheter malfunction and recurrent SVC syndrome symptoms. - History Principal diagnosis: SVC syndrome and Hodge catheter malfunction H&P: obtained from office - Allergies and Medications Current Medications: Allergies dexamethasone [From Decadron] Allergy (Verified 12/25/18 16:29) Angioedema diazepam [From Valium] Allergy (Verified 12/25/18 16:29) Angioedema ketorolac [From Toradol] Allergy (Verified 12/25/18 16:29) Swelling metoclopramide [From Reglan] Allergy (Verified 12/25/18 16:29) Unknown Penicillins Allergy (Verified 12/25/18 16:29) Swelling prochlorperazine [From Compazine] Allergy (Verified 12/25/18 16:29) Unknown promethazine [From Phenergan] Allergy (Verified 12/25/18 16:29) Swelling tramadol Allergy (Verified 12/25/18 16:29) Swelling adhesive tape Adverse Reaction (Verified 12/25/18 16:29) Itching fentanyl Adverse Reaction (Verified 12/25/18 16:29) Dizziness Apple Allergy (Uncoded 06/09/18 15:36) Swelling Sour cream Allergy (Uncoded 06/09/18 15:36) Swelling Whip cream Allergy (Uncoded 06/09/18 15:36) Swelling Home Medications Medication Instructions Recorded Confirmed Last Taken Type Quetiapine Fumarate [SEROquel] 400 mg PO HS 12/07/18 04/26/20 04/25/20 History Enoxaparin 80 mg SUB-Q Q12HR #30 syringe 12/09/18 04/26/20 04/25/20 Rx Ondansetron [Zofran Oral Liq] 4 mg PO PRN PRN 06/02/19 04/26/20 04/25/20 History Saccharomyces Boulardii [Probiotic] 250 mg PO BID #60 capsule 09/01/19 04/26/20 04/25/20 Rx Acetaminophen/Codeine [Tylenol 1 tab PO Q4HR PRN #40 tablet 10/27/19 04/26/20 04/25/20 Rx /Codeine # 3 tab] HYDROcodone/APAP 5-325 [Fowler 1 each PO Q6HR PRN #7 tablet 11/29/19 04/26/20 04/25/20 Rx 5/325] Phenazopyridine [Pyridium] 200 mg PO TID #6 tab 11/29/19 04/26/20 04/25/20 Rx Acetaminophen/Codeine [Tylenol 1 tab PO Q6H PRN 3 Days #12 tab 03/25/20 04/26/20 04/25/20 Rx /Codeine # 3 tab] Sulfamethoxazole/Trimethoprim 1 each PO BID 7 Days #14 tablet 03/25/20 04/26/20 04/25/20 Rx [Bactrim DS TAB] Active Medications Diphenhydramine HCl (Diphenhydramine 50 Mg/Ml Vial) 25 mg IV ONCE PRN PRN Reason: Itching Stop: 04/26/20 20:00 Hydromorphone HCl (Hydromorphone 1 Mg/1 Ml Inj) 0.5 mg IV ONCE PRN PRN Reason: Pain , Severe (7-10) Stop: 04/26/20 23:00 Hydromorphone HCl (Hydromorphone 1 Mg/1 Ml Inj) 0.5 mg IV Q10MIN PRN PRN Reason: Pain , Severe (7-10) Stop: 04/26/20 23:00 Sodium Chloride (Nacl 0.9% 1000 Ml) 1,000 mls @ 42 mls/hr IV DIRECT HERI Clindamycin HCl (Cleocin 900 Mg/50 Ml) 900 mg in 50 mls @ 100 mls/hr IV PREOP NR; Protocol Stop: 04/26/20 23:59 - Physical exam General appearance: mild distress (head and neck swelling) Lungs: Normal air movement Gastrointestinal: normal - Brief post op/procedure progress note Date of procedure: 04/26/20 Pre-op diagnosis: SVC syndrome Post-op diagnosis: same Procedure: 1. Ultrasound guided access of the right common femoral vein 2. Selection of SVC with venography 3. Selection of the right brachiocephalic vein with venography 4. Selection of the right internal jugular vein with venography 5. Fluoroscopic guided removal of the right internal jugular hodge catheter 6. Angioplasty of the right internal jugular vein, right brachiocephalic vein, SVC with a 8 mm x 2 cm cutting balloon, and 10 mm x 40 mm angioplasty balloon (conquest) 7. Angioplasty of the right brachiocephalic vein and SVC with a 10 mm x 40 mm (conquest), 12 mm x 40 mm (conquest), and 14 mm x 40 mm (atlas) angioplasty balloon 8. Ultrasound guided access of the left internal jugular vein 9. Fluoroscopic guided placement of a small bore tunneled left internal jugular vein dual lumen catheter Anesthesia: MAC Surgeon: MAURICIO SOTO Estimated blood loss: minimal Condition: stable - Hospital course Hospital course: Tolerated procedure well. No immediate post procedural complications. - Disposition Condition at discharge: Stable Disposition: DC-01 TO HOME OR SELFCARE - Discharge Diagnoses (1) Chronic superior vena cava occlusion Status: Acute (2) DVT (deep venous thrombosis) Status: Acute Qualifiers: DVT location: upper extremity Chronicity: acute Laterality: right (3) Gastroparesis Status: Chronic (4) History of diabetic gastroparesis Status: Chronic (5) Superior vena cava syndrome Status: Chronic Short Stay Discharge Plan Activity: advance as tolerated Wound: keep clean and dry, other (keep left and right chest sites clean ; cannot get them wet ; do not lift more than 10 lbs for 1 week ; can restart anticoagulation on 04/27/20) Follow up with: LORETTA OCONNOR MD [Other] - 7 Days
--- NOTE | 2020-04-26 15:36 | Operative Report ---
Operative Report Operative Report: EXAM: 1. Ultrasound guided access of the right common femoral vein 2. Selection of SVC with venography 3. Selection of the right brachiocephalic vein with venography 4. Selection of the right internal jugular vein with venography 5. Fluoroscopic guided removal of the right internal jugular ramirez catheter 6. Angioplasty of the right internal jugular vein, right brachiocephalic vein, SVC with a 8 mm x 2 cm cutting balloon, and 10 mm x 40 mm angioplasty balloon (conquest) 7. Angioplasty of the right brachiocephalic vein and SVC with a 10 mm x 40 mm (conquest), 12 mm x 40 mm (conquest), and 14 mm x 40 mm (atlas) angioplasty balloon 8. Ultrasound guided access of the left internal jugular vein 9. Fluoroscopic guided placement of a small bore tunneled left internal jugular vein dual lumen catheter DATE: 04/26/2020 GALVANIZER ZINC: MAURICIO SOTO MD INDICATION: Thrombotic occlusion of the SVC requiring thrombectomy with chronic residual deep venous thrombus and extrinsic compression from the central vessels in a patient who presents for recurrent SVC syndrome symptoms. This is all secondary to gastroparesis requiring indwelling Ramirez catheter line. Ramirez catheter malfunction as well. MEDICATIONS: Please see nursing report for full details. DEVICES: Tunneled powerline 8 mm x 20 mm cutting balloon 10 mm x 40 mm angioplasty balloon, conquest 12 mm x 40 mm angioplasty balloon, conquest 14 mm x 40 mm angioplasty balloon, atlas ANESTHESIA: MAC CONTRAST: Please see labor expediter report for full details. PROCEDURE: The risks, benefits, and alternatives were discussed with the patient. Written informed consent was obtained. The right neck, left neck and right groin were prepped and draped in a sterile fashion. The right common femoral vein was evaluated and was patent. Under direct ultrasound guidance, the right common femoral vein was accessed with a 21-gauge micropuncture needle. 0.018 inch wire was passed into the IVC. Needle was exchanged for transitional dilator. Wire was exchanged for 0.035 inch wire. Transitional dilator was ultimately exchanged for a 8 Italian 65 cm sheath. The patient was partially heparinized. I then selected the SVC, right innominate vein, and right internal jugular vein. Digital subtraction angiography was performeds. The right internal jugular vein was selected and digital subtraction angiography was performed demonstrating patency of the mid and upper portion of the right internal jugular vein, but 50% stenosis at the ostium. Sheath was retracted over the wire and digital subtraction angiography was performed in the SVC demonstrating a 90% upper SVC stenosis, patency of the mid SVC, and a 60% lower SVC stenosis. The Ramirez catheter was then infiltrated with lidocaine and the cuff was then removed with a hemostat with blunt dissection. The catheter was removed under fluoroscopic guidance. The right internal jugular vein was selected. 8 mm x 20 mm cutting balloon was then used to perform angioplasty of the proximal right internal jugular vein, right brachiocephalic vein, and SVC. 10 mm x 40 mm angioplasty balloon was then used to perform angioplasty of the right internal jugular vein ostium into the right innominate vein. This was then used to perform angioplasty of the right brachiocephalic vein and SVC. 12 mm x 40 mm angioplasty balloon was used to perform angioplasty of the SVC at high pressure. Afterwards, 14 mm x 40 mm atlas angioplasty balloon was used to perform angioplasty of the upper and lower SVC at moderate pressure (6). Digital subtraction angiography demonstrated a 20% narrowing of the internal jugular vein ostium, and 30% narrowing of the upper portion of the SVC with 20-3 0% narrowing of the lower part of the SVC. At this point, attention was turned towards the left neck. Under direct ultrasound guidance, the left internal jugular vein was accessed with a 21-gauge micropuncture needle. 0.018 inch wire was passed into the SVC. Needle was exchanged for transitional dilator. Due to the wire initially passing into the left subclavian vein, I decided to perform a venogram to assess the SVC and internal jugular vein. Touey was applied to the transitional dilator and digital subtraction angiography was performed. Digital subtraction angiography demonstrated a 30% narrowing of the SVC at the junction between the innominate veins and the SVC, and a 20-30% narrowing of the lower portion of the SVC. After this was completed, the dilator was exchanged for a peel away sheeth. A suitable exit site was identified on the patient's chest inferior and lateral to the venotomy. The site was anesthetized with local anesthetic and the track was anesthetized. Dermatotomy was made. The dual lumen small bore Powerline was tunneled between the dermatotomy to the venotomy with the assistance of the tunneler. The catheter was cut to appropriate size. Wire and introducer were removed. The catheter was advanced through the peel-away sheath and positioned centrally under fluoroscopic guidance. The peel-away sheath was removed. Excellent flow was obtained through the single lumen tunneled catheter. The catheter tip is in the right atrium. 4-0 Vicryl suture was used to close the venotomy and Dermabond was then applied. 3-0 Ethilon suture was used to secure the catheter at the dermatotomy. The catheter was charged with heparinized saline. Sterile dressing applied. The right common femoral wires, sheaths, and catheters were all removed and pressure was held until hemostasis was achieved. Sterile dressing applied. Patient tolerated procedure well. No immediate postprocedural complication. FINDINGS: Please see procedure note above. IMPRESSION: 1. Successful fluoroscopic guided removal of the right internal jugular Ramirez catheter, tunneled. 2. Successful selection of the right internal jugular vein with angiography and angioplasty 3. Successful selection and angioplasty of the SVC. 4. Successful fluoroscopic and sonographic guided placement of a left internal jugular tunneled dual lumen small bore catheter
[2020-04-26] MEDS ORDERED: diphenhydrAMINE 50 MG/ML VIAL ONE (16:30)
[2020-04-26] MEDS ORDERED: diphenhydrAMINE 50 MG/ML VIAL IV ONE (16:30)
[2020-04-26] MEDS ORDERED: ONDANSETRON 4 MG/2 ML INJ IV ONE (16:30)
[2020-04-26 16:50] VITALS: BP 105/67
== END 2020-04-26 17:35 | disposition home or self-care (01) ==
LOC: CATHLABREC 09:46
PROVIDERS: ATTEND Radiology Diagnostic Radiology
DX: I87.1 Compression of vein (principal); T82.514A Breakdown (mechanical) of infusion catheter, initial encounter; K31.84 Gastroparesis; T80.218A Other infection due to central venous catheter, initial encounter; K21.9 Gastro-esophageal reflux disease without esophagitis; E11.9 Type 2 diabetes mellitus without complications; Z87.01 Personal history of pneumonia (recurrent); Z90.49 Acquired absence of other specified parts of digestive tract; Z90.710 Acquired absence of both cervix and uterus; Z98.890 Other specified postprocedural states; Z83.3 Family history of diabetes mellitus; Z88.0 Allergy status to penicillin; Z88.8 Allergy status to other drugs, medicaments and biological substances; Z79.899 Other long term (current) drug therapy; Z80.8 Family history of malignant neoplasm of other organs or systems; Y82.9 Unspecified medical devices associated with adverse incidents; Y92.89 Other specified places as the place of occurrence of the external cause
CPT/HCPCS: 36415; 36558; 36589; 37248; 37249; 76937; 77001; 80048; 82962; 85025; 85610; 85730; C1725; C1751; C1769; C1887; J1170; J1200; J1644; J2250; J2405; J2704; J7030; 96374; 96375; 96376; Q9967

== ENCOUNTER 2020-08-02 06:19 | Day surgery (SDC) | payer MEDICARE ==
[2020-08-02 08:00] LABS: Hematocrit 34.3 % (30.3-42.9); Hemoglobin 11.5 gm/dl (10.1-14.3); Mean Corpuscular HGB Conc 34 % (30-34); Mean Corpuscular Volume 91 fl (79-97); Platelet Count 237 K/mm3 (140-440); Red Cell Distribution Width 14.5 % (13.2-15.2)
[2020-08-02] MEDS ORDERED: DEXTROSE 50% IN WATER (25GM) 50 ML SYRINGE IV ONE ×2 (08:08→08:47)
--- NOTE | 2020-08-02 08:08 | Anesthesia Day of Surgery ---
Anesthesia Day of Surgery - Day of Surgery Patient Examined: Yes Patient H&P Reviewed: Yes Patient is NPO: Yes
--- NOTE | 2020-08-02 08:08 | Anesthesia Consultation ---
Anesthesia Consult and Med Hx Date of service: 08/02/20 - Airway Anesthetic Teeth Evaluation: Good ROM Head & Neck: Adequate Mental/Hyoid Distance: Adequate Mallampati Class: Class I Intubation Access Assessment: Good - Pre-Operative Health Status ASA Pre-Surgery Classification: ASA3 Proposed Anesthetic Plan: MAC - Pulmonary Hx Smoking: Yes Hx Respiratory Symptoms: No - Cardiovascular System Hx Hypertension: No Hx Heart Attack/AMI: No Hx Percutaneous Transluminal Coronary Angioplasty (PTCA): No Hx Peripheral Vascular Disease: Yes (right upper arm vein thrombosis, SVC stenosis) - Central Nervous System Hx Seizures: No CVA: No Hx Psychiatric Problems: Yes - Gastrointestinal Hx Gastroesophageal Reflux Disease: No (G-tube in-situ for gastroparesis) - Endocrine Hx Renal Disease: No Hx Liver Disease: No Hx Non-Insulin Dependent Diabetes: Yes (occasional hypoglycemia) Hx Thyroid Disease: No - Hematic Hx Anemia: Yes Hx Sickle Cell Disease: No - Other Systems Hx Obesity: No - Additional Comments Anesthesia Medical History Comments: Multiple prior similar procedures under MAC without complications. Previous anesthesia record reviewed.
[2020-08-02] MEDS ORDERED: diphenhydrAMINE 50 MG/ML VIAL IV PRN (08:09)
[2020-08-02 08:11] LABS: INR 0.91 (0.87-1.13)
[2020-08-02 08:12] LABS: Partial Thromboplastin Time 30.8 Sec. (24.2-36.6)
[2020-08-02 08:14] LABS: BUN/Creatinine Ratio 11; Blood Urea Nitrogen 9 mg/dL (7-17); Calcium 8.5 mg/dL (8.4-10.2); Hemolysis Index 1
[2020-08-02] MEDS ORDERED: MIDAZOLAM 2 MG/2 ML INJ ONE ×2 (08:30)
[2020-08-02] MEDS ORDERED: ONDANSETRON 4 MG/2 ML INJ ONE (08:31)
[2020-08-02] MEDS ORDERED: LIDOCAINE MPF (2%) 20 MG/1 ML VIAL 5 ML ONE (08:31)
[2020-08-02] MEDS ORDERED: propofoL 200 MG/20 ML VIAL IV ONE ×4 (08:31)
[2020-08-02] MEDS ORDERED: HEPARIN/NS 5000 UNIT/500ML 500 ML IR ONE (08:37)
[2020-08-02] MEDS ORDERED: LIDOCAINE 1%/EPINEPHRINE 1:100,000 VIAL (20 ML) INFILTRATI ONE (08:40)
[2020-08-02] MEDS: CLINDAMYCIN 600 MG/50 mL 600 MG/50 ML BAG IV NR ×2 (09:00→09:10)
[2020-08-02] MEDS: SODIUM CHLORIDE 0.9% 1000 ML 1,000 ML IV SCH ×2 (09:10→09:26)
[2020-08-02] MEDS: HEPARIN 10,000 UNITS/10 ML VIAL ONE ×2 (09:35→09:37)
[2020-08-02] MEDS ORDERED: diphenhydrAMINE 50 MG/ML VIAL ONE ×2 (10:32→11:04)
[2020-08-02] MEDS: HYDROmorphone 1 MG/1 ML INJ IV PRN ×2 (11:04→13:12)
[2020-08-02] MEDS ORDERED: diphenhydrAMINE 50 MG/ML VIAL IV ONE ×2 (11:13→12:16)
--- NOTE | 2020-08-02 11:15 | Operative Report ---
Operative Report Operative Report: EXAM: 1. Ultrasound guided access of the right common femoral vein 2. Selection of SVC with venography 3. Selection of the right brachiocephalic vein with venography 4. Selection of the right internal jugular vein with venography 6. Angioplasty of the right internal jugular vein, right brachiocephalic vein, SVC with a 8 mm x 2 cm cutting balloon, and 10 mm x 40 mm angioplasty balloon (conquest) 7. Angioplasty of the right brachiocephalic vein and SVC with a 10 mm x 40 mm (conquest), 12 mm x 40 mm (conquest), and 12 mm x 40 mm iNPACT balloon 8. Angioplasty of the SVC with a 14 mm x 40 mm (atlas) angioplasty balloon DATE: 08/02/2020 CLAIMS CONFIGURATION ANALYST: MAURICIO SOTO MD INDICATION: Thrombotic occlusion of the SVC requiring thrombectomy with chronic residual deep venous thrombus and extrinsic compression from the central vessels in a patient who presents for recurrent SVC syndrome symptoms. This is all secondary to gastroparesis requiring indwelling tunneled catheter line. MEDICATIONS: Please see nursing report for full details. DEVICES: 8 mm x 20 mm cutting balloon 10 mm x 40 mm angioplasty balloon, conquest 12 mm x 40 mm angioplasty balloon, conquest 12 mm x 40 mm iNPACT balloon 14 mm x 40 mm angioplasty balloon, atlas ANESTHESIA: MAC CONTRAST: Please see label rewinder report for full details. PROCEDURE: The risks, benefits, and alternatives were discussed with the patient. Written informed consent was obtained. The right neck, left neck and right groin were prepped and draped in a sterile fashion. The right common femoral vein was evaluated and was patent. Under direct ultrasound guidance, the right common femoral vein was accessed with a 2 1-gauge micropuncture needle. 0.018 inch wire was passed into the IVC. Needle was exchanged for transitional dilator. Wire was exchanged for 0.035 inch wire. Transitional dilator was ultimately exchanged for a 9 Latvian sheath with a coaxial 7 Fr 65 cm sheath. The patient was partially heparinized. I then selected the SVC, right innominate vein, and right internal jugular vein. Digital subtraction angiography was performeds. The right internal jugular vein was selected and digital subtraction angiography was performed demonstrating patency of the mid and upper portion of the right internal jugular vein, but 50% stenosis at the ostium. Sheath was retracted over the wire and digital subtraction angiography was performed in the SVC demonstrating a 90% upper SVC stenosis, patency of the mid SVC, and a 50% lower SVC stenosis. The left brachiocephalic vein is patent. The right brachiocephalic vein has 40% narrowing. The right internal jugular vein was selected. 8 mm x 20 mm cutting balloon was then used to perform angioplasty of the proximal right internal jugular vein, right brachiocephalic vein, and SVC. 10 mm x 40 mm angioplasty balloon was then used to perform angioplasty of the right internal jugular vein ostium into the right innominate vein. This was then used to perform angioplasty of the right brachiocephalic vein and SVC. 12 mm x 40 mm angioplasty balloon was used to perform angioplasty of the SVC at high pressure. 12 mm x 40 mm iNPACT balloon was then used to perform angioplasty of the right brachiocephalic vein and SVC. Afterwards, 14 mm x 40 mm atlas angioplasty balloon was used to perform angioplasty of the lower SVC at low pressure (3). Digital subtraction angiography demonstrated a 20% narrowing of the internal jugular vein ostium, and 10% narrowing of the upper portion of the SVC with 20% narrowing of the lower part of the SVC. The right brachiocephalic vein is now patent. The right common femoral wires, sheaths, and catheters were all removed and pressure was held until hemostasis was achieved. Sterile dressing applied. Patient tolerated procedure well. No immediate postprocedural complication. FINDINGS: Please see procedure note above. IMPRESSION: 1. Successful selection of the right internal jugular vein with angiography and angioplasty 2. Successful selection of the right brachiocephalic vein with angiography and angioplasty. 3. Successful selection of the SVC and angioplasty of the SVC.
--- NOTE | 2020-08-02 11:25 | Short Stay Summary ---
Short Stay Documentation Date of service: 08/02/20 Narrative H&P: 43-year-old female with gastroparesis, venting G-tube, and feeding J-tube with chronic tunneled power line due to chronic hypoglycemia who was having recurrent SVC syndrome symptoms. - History Principal diagnosis: SVC syndrome H&P: obtained from office - Allergies and Medications Current Medications: Allergies dexamethasone [From Decadron] Allergy (Verified 12/25/18 16:29) Angioedema diazepam [From Valium] Allergy (Verified 12/25/18 16:29) Angioedema ketorolac [From Toradol] Allergy (Verified 12/25/18 16:29) Swelling metoclopramide [From Reglan] Allergy (Verified 12/25/18 16:29) Unknown Penicillins Allergy (Verified 12/25/18 16:29) Swelling prochlorperazine [From Compazine] Allergy (Verified 12/25/18 16:29) Unknown promethazine [From Phenergan] Allergy (Verified 12/25/18 16:29) Swelling tramadol Allergy (Verified 12/25/18 16:29) Swelling adhesive tape Adverse Reaction (Verified 12/25/18 16:29) Itching fentanyl Adverse Reaction (Verified 12/25/18 16:29) Dizziness Apple Allergy (Uncoded 06/09/18 15:36) Swelling Sour cream Allergy (Uncoded 06/09/18 15:36) Swelling Whip cream Allergy (Uncoded 06/09/18 15:36) Swelling Home Medications Medication Instructions Recorded Confirmed Last Taken Type Quetiapine Fumarate [SEROquel] 400 mg PO HS 12/07/18 04/26/20 04/25/20 History Enoxaparin 80 mg SUB-Q Q12HR #30 syringe 12/09/18 04/26/20 04/25/20 Rx Ondansetron [Zofran Oral Liq] 4 mg PO PRN PRN 06/02/19 04/26/20 04/25/20 History Saccharomyces Boulardii [Probiotic] 250 mg PO BID #60 capsule 09/01/19 04/26/20 04/25/20 Rx Acetaminophen/Codeine [Tylenol 1 tab PO Q4HR PRN #40 tablet 10/27/19 04/26/20 04/25/20 Rx /Codeine # 3 tab] HYDROcodone/APAP 5-325 [Custer 1 each PO Q6HR PRN #7 tablet 11/29/19 04/26/20 04/25/20 Rx 5/325] Phenazopyridine [Pyridium] 200 mg PO TID #6 tab 11/29/19 04/26/20 04/25/20 Rx Acetaminophen/Codeine [Tylenol 1 tab PO Q6H PRN 3 Days #12 tab 03/25/20 04/26/20 04/25/20 Rx /Codeine # 3 tab] Sulfamethoxazole/Trimethoprim 1 each PO BID 7 Days #14 tablet 03/25/20 04/26/20 04/25/20 Rx [Bactrim DS TAB] Acetaminophen/Codeine [Tylenol 1 tab PO Q4HR PRN #30 tablet 04/26/20 Unknown Rx /Codeine # 3 tab] Active Medications Hydromorphone HCl (Hydromorphone 1 Mg/1 Ml Inj) 0.5 mg IV Q10MIN PRN PRN Reason: Pain , Severe (7-10) Stop: 08/02/20 20:00 Last Admin: 08/02/20 11:04 Dose: 0.5 mg Documented by: Sodium Chloride (Nacl 0.9% 1000 Ml) 1,000 mls @ 42 mls/hr IV DIRECT HERI Last Admin: 08/02/20 09:10 Dose: 200 mls Documented by: Clindamycin HCl (Cleocin 600 Mg/50 Ml) 600 mg in 50 mls @ 100 mls/hr IV PREOP NR; Protocol Stop: 08/03/20 08:59 Last Admin: 08/02/20 09:10 Dose: 50 mls Documented by: - Physical exam General appearance: mild distress (head and neck swelling) Lungs: Normal air movement Breasts: swelling Extremities: normal temperature, normal color - Brief post op/procedure progress note Date of procedure: 08/02/20 Pre-op diagnosis: SVC syndrome Post-op diagnosis: same Procedure: 1. Ultrasound guided access of the right common femoral vein 2. Selection of SVC with venography 3. Selection of the right brachiocephalic vein with venography 4. Selection of the right internal jugular vein with venography 6. Angioplasty of the right internal jugular vein, right brachiocephalic vein, SVC with a 8 mm x 2 cm cutting balloon, and 10 mm x 40 mm angioplasty balloon (Nebula) 7. Angioplasty of the right brachiocephalic vein and SVC with a 10 mm x 40 mm (conquest), 12 mm x 40 mm (conquest), and 12 mm x 40 mm iNPACT balloon 8. Angioplasty of the SVC with a 14 mm x 40 mm (atlas) angioplasty balloon Anesthesia: MAC Surgeon: MAURICIO SOTO Estimated blood loss: minimal Condition: stable - Hospital course Hospital course: Tolerated procedure well. No immediate post procedural complications. - Disposition Condition at discharge: Stable Disposition: DC-01 TO HOME OR SELFCARE - Discharge Diagnoses (1) Chronic superior vena cava occlusion Status: Acute (2) DVT (deep venous thrombosis) Status: Acute Qualifiers: DVT location: upper extremity Chronicity: acute Laterality: right (3) Hypoglycemia Status: Acute (4) Gastroparesis Status: Chronic (5) History of diabetic gastroparesis Status: Chronic (6) Superior vena cava syndrome Status: Chronic Short Stay Discharge Plan Activity: advance as tolerated Weight Bearing Status: Weight Bear as Tolerated Diet: advance as tolerated Wound: keep clean and dry, other (can restart anticoagulation today) Follow up with: PRIMARY CAREMD [Primary Care Provider] - 7 Days
[2020-08-02 16:30] VITALS: BP 100/78
== END 2020-08-02 06:20 | disposition home or self-care (01) ==
LOC: CATHLABREC 06:19
PROVIDERS: ATTEND Radiology Diagnostic Radiology
DX: I87.1 Compression of vein (principal); K31.84 Gastroparesis; F17.210 Nicotine dependence, cigarettes, uncomplicated; K21.9 Gastro-esophageal reflux disease without esophagitis; E11.51 Type 2 diabetes mellitus with diabetic peripheral angiopathy without gangrene; D64.9 Anemia, unspecified; Z83.3 Family history of diabetes mellitus; Z88.8 Allergy status to other drugs, medicaments and biological substances; Z88.0 Allergy status to penicillin; Z79.899 Other long term (current) drug therapy; Z90.49 Acquired absence of other specified parts of digestive tract; Z80.8 Family history of malignant neoplasm of other organs or systems; Z86.39 Personal history of other endocrine, nutritional and metabolic disease; Z87.01 Personal history of pneumonia (recurrent)
CPT/HCPCS: 36415; 37248; 37249; 75827; 76937; 80048; 82962; 85027; 85610; 85730; C1725; C1769; C1887; J1170; J1200; J1644; J2250; J2405; J2704; J7030; Q9967

== ENCOUNTER 2020-09-05 08:44 | Day surgery (SDC) | payer MEDICARE ==
[2020-09-05 09:41] LABS: Basophils % (Auto) 0.6 % (0.0-1.8); Hematocrit 36.9 % (30.3-42.9); Hemoglobin 12.4 gm/dl (10.1-14.3); Lymphocytes # (Auto) 1.5 K/mm3 (1.2-5.4); Lymphocytes % (Auto) 27.2 % (13.4-35.0); Mean Corpuscular HGB Conc 34 % (30-34); Mean Corpuscular Volume 91 fl (79-97); Monocytes # (Auto) 0.5 K/mm3 (0.0-0.8); Platelet Count 227 K/mm3 (140-440); Red Blood Count 4.07 M/mm3 (3.65-5.03); Red Cell Distribution Width 14.4 % (13.2-15.2)
[2020-09-05] MEDS ORDERED: MIDAZOLAM 2 MG/2 ML INJ ONE (09:50)
[2020-09-05] MEDS ORDERED: propofoL 200 MG/20 ML VIAL IV ONE ×4 (09:50→12:49)
[2020-09-05] MEDS ORDERED: HYDROmorphone 1 MG/1 ML INJ ONE ×3 (09:50→14:57)
[2020-09-05] MEDS ORDERED: SODIUM CHLORIDE 0.9% 500 ML 0 ML ONE (09:50)
[2020-09-05 09:51] LABS: INR 0.86 (0.87-1.13)
[2020-09-05] MEDS ORDERED: LIDOCAINE MPF (2%) 20 MG/1 ML VIAL 5 ML ONE (09:51)
[2020-09-05 09:52] LABS: Partial Thromboplastin Time 30.7 Sec. (24.2-36.6)
[2020-09-05] MEDS: SODIUM CHLORIDE 0.9% 1000 ML 1,000 ML IV SCH ×3 (09:54→10:56)
[2020-09-05 09:57] LABS: Blood Urea Nitrogen 12 mg/dL (7-17); Calcium 9.4 mg/dL (8.4-10.2); Hemolysis Index 22
[2020-09-05 09:58] LABS: BUN/Creatinine Ratio 17
[2020-09-05] MEDS ORDERED: HEPARIN 10,000 UNITS/10 ML VIAL ONE (10:28)
[2020-09-05] MEDS: CLINDAMYCIN 600 MG/50 mL 600 MG/50 ML BAG IV NR ×2 (10:40→10:57)
--- NOTE | 2020-09-05 10:46 | Anesthesia Consultation ---
Anesthesia Consult and Med Hx Date of service: 09/05/20 - Airway Anesthetic Teeth Evaluation: Good ROM Head & Neck: Adequate Mental/Hyoid Distance: Adequate Mallampati Class: Class II Intubation Access Assessment: Probably Good - Pre-Operative Health Status ASA Pre-Surgery Classification: ASA3 Proposed Anesthetic Plan: MAC - Pulmonary Hx Smoking: Yes Hx Respiratory Symptoms: No - Cardiovascular System Hx Hypertension: No Hx Heart Attack/AMI: No Hx Percutaneous Transluminal Coronary Angioplasty (PTCA): No Hx Peripheral Vascular Disease: Yes (right upper arm vein thrombosis, SVC stenosis) - Central Nervous System CVA: No Hx Psychiatric Problems: Yes (depression) - Gastrointestinal Hx Gastroesophageal Reflux Disease: No (gastroparesis) - Endocrine Hx Renal Disease: No Hx End Stage Renal Disease: No Hx Liver Disease: No Hx Non-Insulin Dependent Diabetes: Yes (occasional hypoglycemia) Hx Thyroid Disease: No - Other Systems Hx Obesity: No
--- NOTE | 2020-09-05 10:46 | Anesthesia Day of Surgery ---
Anesthesia Day of Surgery - Day of Surgery Patient Examined: Yes Patient H&P Reviewed: Yes Patient is NPO: Yes
[2020-09-05] MEDS: LIDOCAINE 1%/EPINEPHRINE 1:100,000 VIAL (20 ML) INFILTRATI ONE ×4 (10:51→12:46)
[2020-09-05] MEDS: HEPARIN/NS 5000 UNIT/500ML 1,000 ML IR ONE ×2 (10:57→11:24)
[2020-09-05] MEDS ORDERED: LIDOCAINE 1%/EPINEPHRINE 1:100,000 VIAL (20 ML) INFILTRATI ONE (10:58)
[2020-09-05] MEDS ORDERED: DEXTROSE 50% IN WATER (25GM) 50 ML SYRINGE IV ONE ×2 (11:21→16:00)
[2020-09-05] MEDS ORDERED: ONDANSETRON 4 MG/2 ML INJ ONE (13:30)
[2020-09-05] MEDS ORDERED: diphenhydrAMINE 50 MG/ML VIAL ONE (13:33)
[2020-09-05] MEDS ORDERED: HYDROmorphone 1 MG/1 ML INJ IV PRN (14:12)
[2020-09-05] MEDS ORDERED: diphenhydrAMINE 50 MG/ML VIAL IV ONE (14:12)
--- NOTE | 2020-09-05 14:51 | Short Stay Summary ---
Short Stay Documentation Date of service: 09/05/20 Narrative H&P: 43-year-old female with gastroparesis, venting G-tube, and feeding J-tube with chronic tunneled power line due to chronic hypoglycemia who was having recurrent SVC syndrome symptoms. - History Principal diagnosis: SVC syndrome H&P: obtained from office - History H&P: obtained from office - Allergies and Medications Current Medications: Allergies dexamethasone [From Decadron] Allergy (Verified 12/25/18 16:29) Angioedema diazepam [From Valium] Allergy (Verified 12/25/18 16:29) Angioedema ketorolac [From Toradol] Allergy (Verified 12/25/18 16:29) Swelling metoclopramide [From Reglan] Allergy (Verified 12/25/18 16:29) Unknown Penicillins Allergy (Verified 12/25/18 16:29) Swelling prochlorperazine [From Compazine] Allergy (Verified 12/25/18 16:29) Unknown promethazine [From Phenergan] Allergy (Verified 12/25/18 16:29) Swelling tramadol Allergy (Verified 12/25/18 16:29) Swelling adhesive tape Adverse Reaction (Verified 12/25/18 16:29) Itching fentanyl Adverse Reaction (Verified 12/25/18 16:29) Dizziness Apple Allergy (Uncoded 06/09/18 15:36) Swelling Sour cream Allergy (Uncoded 06/09/18 15:36) Swelling Whip cream Allergy (Uncoded 06/09/18 15:36) Swelling Home Medications Medication Instructions Recorded Confirmed Last Taken Type Quetiapine Fumarate [SEROquel] 400 mg PO HS 12/07/18 09/05/20 09/04/20 History 400 mg Enoxaparin 80 mg SUB-Q Q12HR #30 syringe 12/09/18 09/05/20 09/04/20 Rx 80 mg Ondansetron [Zofran Oral Liq] 4 mg PO PRN PRN 06/02/19 09/05/20 09/04/20 History 4 mg Buprenorphine [Butrans] 1 each TD QWEEK 09/05/20 09/05/20 08/31/20 History 10mcg/hr Active Medications Diphenhydramine HCl (Diphenhydramine 50 Mg/Ml Vial) 25 mg IV ONCE ONE Stop: 09/05/20 14:13 Hydromorphone HCl (Hydromorphone 1 Mg/1 Ml Inj) 0.5 mg IV Q10MIN PRN PRN Reason: Pain , Severe (7-10) Sodium Chloride (Nacl 0.9% 1000 Ml) 1,000 mls @ 42 mls/hr IV DIRECT HERI Last Admin: 09/05/20 10:40 Dose: 42 mls/hr Documented by: - Physical exam General appearance: mild distress (SVC syndrome) Integumentary: no abnormal pigmentation HEENT: Other (head and neck swelling) Lungs: Normal air movement Breasts: swelling Gastrointestinal: other (varicosities) Extremities: normal temperature, normal color - Brief post op/procedure progress note Date of procedure: 09/05/20 Pre-op diagnosis: SVC syndrome Post-op diagnosis: same Procedure: 1. Ultrasound guided access of the right common femoral vein 2. Selection of the SVC with venography 3. Flossing of the 0.018 wire from the left tunneled catheter with the right common femoral vein 4. Fluoroscopic guided removal of a left internal jugular dual lumen tunneled cuffed small bore catheter 5. Selection of the right innominate vein and internal jugular vein, and left innominate vein and left internal jugular vein with angiography 6. Angioplasty of the SVC with an 8 mm x 40 mm angioplasty balloon and 10 mm x 40 mm angioplasty balloon 7. Stenting of the SVC with a 14 mm x 40 mm with post dilatation with a 12 mm x 40 mm angioplasty balloon 8. Ultrasound guided access of the right internal jugular vein 9. Fluoroscopic guided placement of a right internal jugular dual lumen powerline tunneled cuffed small bore catheter Anesthesia: MAC Surgeon: MAURICIO SOTO Estimated blood loss: minimal Condition: stable - Hospital course Hospital course: Tolerated procedure without issue. Ready for discharge. - Disposition Condition at discharge: Stable Disposition: [id number] TO HOME OR SELFCARE - Discharge Diagnoses (1) Chronic superior vena cava occlusion Status: Acute (2) Occluded PICC line Status: Acute (3) Gastroparesis Status: Chronic (4) History of diabetic gastroparesis Status: Chronic (5) Superior vena cava syndrome Status: Chronic Short Stay Discharge Plan Activity: advance as tolerated Weight Bearing Status: Weight Bear as Tolerated Diet: advance as tolerated Wound: keep clean and dry Follow up with: MUSTAPHA BURGOS MD [Primary Care Provider] - 7 Days
[2020-09-05] MEDS ORDERED: ONDANSETRON 4 MG/2 ML INJ IV ONE (15:30)
[2020-09-05 16:03] VITALS: BP 117/75
--- NOTE | 2020-09-05 17:51 | Operative Report ---
Operative Report Operative Report: EXAM: 1. Ultrasound guided access of the right common femoral vein 2. Selection of the SVC with venography 3. Flossing of the 0.018 wire from the left tunneled catheter with the right common femoral vein 4. Fluoroscopic guided removal of a left internal jugular dual lumen tunneled cuffed small bore catheter 5. Selection of the right innominate vein and internal jugular vein, and left innominate vein and left internal jugular vein with angiography 6. Angioplasty of the SVC with an 8 mm x 40 mm angioplasty balloon and 10 mm x 40 mm angioplasty balloon 7. Stenting of the SVC with a 14 mm x 40 mm with post dilatation with a 12 mm x 20 mm and 12 mm x 40 mm angioplasty balloon 8. Ultrasound guided access of the right internal jugular vein 9. Fluoroscopic guided placement of a right internal jugular dual lumen powerline tunneled cuffed small bore catheter DATE: 09/05/2020 CONSTRUCTION IRONWORKER HELPER: MAURICIO SOTO MD INDICATION: Thrombotic occlusion of the SVC requiring thrombectomy with chronic residual deep venous thrombus and extrinsic compression from the central vessels in a patient who presents for recurrent SVC syndrome symptoms. This is all secondary to gastroparesis requiring indwelling Ramirez catheter line. Ramirez catheter malfunction as well. MEDICATIONS: Please see nursing report for full details. DEVICES: Tunneled powerline 10 mm x 40 mm angioplasty balloon, conquest 12 mm x 20 mm angioplasty balloon 12 mm x 40 mm angioplasty balloon, conquest 14 mm x 40 mm Everflex ANESTHESIA: MAC CONTRAST: Please see parking lot laborer report for full details. PROCEDURE: The risks, benefits, and alternatives were discussed with the patient. Written informed consent was obtained. The right neck, left neck and right groin were prepped and draped in a sterile fashion. The right common femoral vein was evaluated and was patent. Under direct ultrasound guidance, the right common femoral vein was accessed with a 21-gauge micropuncture needle. 0.018 inch wire was passed into the IVC. Needle was exchanged for transitional dilator. Wire was exchanged for 0.035 inch wire. Transitional dilator was ultimately exchanged for a 8 Tristanian 65 cm sheath. The patient was partially heparinized. I then selected the SVC, and attempted to cross the supra azygos portion of the SVC, but kept on selecting the azygos vein. Digital subtraction angiography was performed confirming position in the azygos vein. Digital subtraction angiography in the SVC demonstrated a 50-60% narrowing at the lower portion of the SVC, with a patent hypertrophic azygos vein, and no flow into the supra azygos SVC. After 10 minutes of attempting to cross the super azygous portion of the SVC, I then decided to floss the lesion. 0.018 inch V 18 wire was then passed through one of the lumens of the left internal jugular power line and into the IVC. This was passed into a snare and the IVC which was 18 to 30 mm in size. At this point, the wire was then flossed and removed through the right common femoral vein sheath. The sheath was then pushed over the power line and into the left innominate vein. The powerline and V 18 wire were then removed from the sheath and the wire was exchanged for a Gladius wire which was passed into the right internal jugular vein. This demonstrated the mid portion of the innominate vein bifurcation. Powerline was retracted to the left innominate vein. Sheath was then passed into the left internal jugular vein, and left innominate vein and digital subtraction angiography was performed at multiple stations. Digital subtraction angiography through the sheath demonstrating demonstrating an occluded supra azygos SVC stenosis, patency of the mid SVC, and a 60% lower SVC stenosis. The right innominate vein was patent. The left innominate vein was patent. The right internal jugular vein was patent. The left internal jugular vein was patent. The left subclavian vein was patent. The right subclavian vein was chronically occluded. There is an extensive collateral network arising from the right internal jugular vein passing into the azygos and hemiazygos system. Glidewire advantage was then passed into the left internal jugular vein. The supra azygous SVC was predilated with an 8 mm x 40 mm angioplasty balloon and 10 mm x 40 mm angioplasty balloon. Afterwards, a 14 mm x 40 mm stent was flowered into the left innominate vein, but then pulled back and anchored in the origin of the supra azygous SVC and deployed throughout the SVC. 12 mm x 20 mm angioplasty balloon was then used to post dilate the stent and this was followed with a 12 mm x 40 mm conquest angioplasty balloon. Digital subtraction angiography was performed demonstrating patency of the left innominate vein with excellent flow into the SVC. There is less than 10 to 20% residual narrowing of the SVC. The right internal jugular vein was then selected with the sheath and afterwards the right innominate vein was selected with the sheath and digital subtraction angiography was performed demonstrating an irregularity along the right lateral border of the ostium of the SVC stent. 12 mm x 40 mm angioplasty balloon was used to perform angioplasty from the right innominate vein into the SVC. Digital subtraction angiography was performed demonstrating patency of the right innominate vein passing into the SVC with no residual irregularity. At this point, I believe that the right internal jugular vein would provide a straighter inline flow for a power line which patient needed for chronic hypoglycemia. At this point, attention was turned towards the right neck. Under direct ultrasound guidance, the right internal jugular vein was accessed with a 21-gauge micropuncture needle. 0.018 inch wire was passed into the IVC. Needle was exchanged for transitional dilator. A suitable exit site was identified on the patient's chest inferior and lateral to the venotomy. The site was anesthetized with local anesthetic and the track was anesthetized. Dermatotomy was made. The dual lumen small bore Powerline was tunneled between the dermatotomy to the venotomy with the assistance of the tunneler. The catheter was cut to appropriate size. Wire and introducer were removed. The catheter was advanced through the peel-away sheath and positioned centrally under fluoroscopic guidance. The peel-away sheath was removed. Excellent flow was obtained through the single lumen tunneled catheter. The catheter tip is in the right atrium. 4-0 Vicryl suture was used to close the venotomy and Dermabond was then applied. 3-0 Ethilon suture was used to secure the catheter at the dermatotomy. The catheter was charged with heparinized saline. Sterile dressing applied. At this point, the left sided power line was then removed. Dermabond was applied to the left sided powerline site. The right common femoral wires, sheaths, and catheters were all removed and pres sure was held until hemostasis was achieved. Sterile dressing applied. Patient tolerated procedure well. No immediate postprocedural complication. FINDINGS: Please see procedure note above. IMPRESSION: 1. Successful fluoroscopic guided removal of the left internal jugular dual lumen smallbore catheter, tunneled. 2. Successful selection of the right innominate vein, and right internal ju gular vein with angiography 3. Successful selection of the left innominate vein, and left internal jugular vein with angiography 3. Successful selection, angioplasty and stenting of the SVC. 4. Successful fluoroscopic and sonographic guided placement of a right internal jugular tunneled dual lumen small bore catheter
== END 2020-09-05 16:40 | disposition home or self-care (01) ==
LOC: CATH 08:44 → CATHLABREC 08:44
PROVIDERS: ATTEND Radiology Diagnostic Radiology
DX: I87.1 Compression of vein (principal); K31.84 Gastroparesis; T82.51 Breakdown (mechanical) of other cardiac and vascular devices and implants; T80.21 Infection due to central venous catheter; D64.9 Anemia, unspecified; E11.51 Type 2 diabetes mellitus with diabetic peripheral angiopathy without gangrene; K21.9 Gastro-esophageal reflux disease without esophagitis; F32.9 Major depressive disorder, single episode, unspecified; Z98.890 Other specified postprocedural states; Z90.710 Acquired absence of both cervix and uterus; Z91.81 History of falling; Z88.8 Allergy status to other drugs, medicaments and biological substances; Z79.899 Other long term (current) drug therapy; Z88.0 Allergy status to penicillin; Z90.49 Acquired absence of other specified parts of digestive tract; Z98.82 Breast implant status; Z83.3 Family history of diabetes mellitus; Z80.8 Family history of malignant neoplasm of other organs or systems; X58.XXXS Exposure to other specified factors, sequela
CPT/HCPCS: 36415; 36558; 36589; 37238; 75827; 76937; 80048; 82962; 85025; 85610; 85730; C1725; C1751; C1769; C1773; C1876; C1887; J1170; J1200; J1644; J2250; J2405; J2704; J7030; 37248; 96374; 96375; J7040; Q9967

== ENCOUNTER 2020-10-11 06:22 | Day surgery (SDC) | payer MEDICARE ==
[2020-10-11] MEDS ORDERED: SODIUM CHLORIDE 0.9% 1000 ML 1,000 ML IV SCH (08:00)
[2020-10-11] MEDS ORDERED: LIDOCAINE MPF (2%) 20 MG/1 ML VIAL 5 ML ONE ×2 (08:29→09:49)
[2020-10-11] MEDS ORDERED: ONDANSETRON 4 MG/2 ML INJ ONE (08:29)
[2020-10-11] MEDS ORDERED: HYDROmorphone 1 MG/1 ML INJ ONE (08:30)
[2020-10-11] MEDS ORDERED: propofoL 200 MG/20 ML VIAL IV ONE ×6 (08:31→12:23)
[2020-10-11] MEDS ORDERED: MIDAZOLAM 2 MG/2 ML INJ ONE (08:31)
[2020-10-11 08:33] LABS: Hematocrit 35.7 % (30.3-42.9); Mean Corpuscular HGB Conc 34 % (30-34); Mean Corpuscular Volume 91 fl (79-97); Platelet Count 162 K/mm3 (140-440); Red Blood Count 3.91 M/mm3 (3.65-5.03); Red Cell Distribution Width 15.2 % (13.2-15.2)
[2020-10-11 08:43] LABS: INR 0.88 (0.87-1.13)
[2020-10-11 08:44] LABS: Partial Thromboplastin Time 26.6 Sec. (24.2-36.6)
[2020-10-11 08:46] LABS: Blood Urea Nitrogen 7 mg/dL (7-17); Calcium 9.2 mg/dL (8.4-10.2); Hemolysis Index 2
[2020-10-11 08:50] LABS: BUN/Creatinine Ratio 10
[2020-10-11] MEDS ORDERED: HEPARIN/NS 5000 UNIT/500ML 1,500 ML IR ONE (09:23)
[2020-10-11] MEDS ORDERED: SODIUM CHLORIDE 0.9% 500 ML 0 ML ONE (09:24)
--- NOTE | 2020-10-11 09:32 | Anesthesia Day of Surgery ---
Anesthesia Day of Surgery - Day of Surgery Patient Examined: Yes Patient H&P Reviewed: Yes Patient is NPO: Yes
--- NOTE | 2020-10-11 09:32 | Anesthesia Consultation ---
Anesthesia Consult and Med Hx Date of service: 10/11/20 - Airway Anesthetic Teeth Evaluation: Good ROM Head & Neck: Adequate Mental/Hyoid Distance: Adequate Mallampati Class: Class I Intubation Access Assessment: Good - Pre-Operative Health Status ASA Pre-Surgery Classification: ASA3 Proposed Anesthetic Plan: MAC - Pulmonary Hx Smoking: Yes Hx Respiratory Symptoms: No - Cardiovascular System Hx Hypertension: No Hx Heart Attack/AMI: No Hx Percutaneous Transluminal Coronary Angioplasty (PTCA): No Hx Peripheral Vascular Disease: Yes (right upper arm vein thrombosis, SVC stenosis) - Central Nervous System Hx Seizures: No CVA: No Hx Psychiatric Problems: Yes (depression) - Gastrointestinal Hx Gastroesophageal Reflux Disease: No (gastroparesis) - Endocrine Hx Renal Disease: No Hx Liver Disease: No Hx Non-Insulin Dependent Diabetes: Yes (occasional hypoglycemia) Hx Thyroid Disease: No - Other Systems Hx Obesity: No
[2020-10-11] MEDS ORDERED: ONDANSETRON 4 MG/2 ML INJ IV PRN (10:00)
[2020-10-11] MEDS ORDERED: NITROGLYCERIN SYRINGE 3 ML ONE (10:00)
[2020-10-11] MEDS ORDERED: VERAPAMIL 5 MG/2 ML INJ ONE (10:00)
[2020-10-11] MEDS: LIDOCAINE 1%/EPINEPHRINE 1:100,000 VIAL (20 ML) INFILTRATI ONE ×4 (10:10→12:25)
[2020-10-11] MEDS ORDERED: SODIUM CHLORIDE 0.9% 100 ML ONE (10:36)
[2020-10-11] MEDS: HEPARIN 10,000 UNITS/10 ML VIAL ONE ×3 (10:54→11:51)
[2020-10-11] MEDS: HYDROmorphone 1 MG/1 ML INJ IV PRN ×4 (13:45→14:23)
[2020-10-11] MEDS: diphenhydrAMINE 50 MG/ML VIAL IV PRN ×2 (13:48→14:13)
--- NOTE | 2020-10-11 14:04 | Short Stay Summary ---
Short Stay Documentation Date of service: 10/11/20 Narrative H&P: 44-year-old female with gastroparesis, venting G-tube, and feeding J-tube with chronic tunneled power line due to chronic hypoglycemia who was having recurrent SVC syndrome symptoms. Recently had discharge from line requiring removal of line and placement of a new line. - History Principal diagnosis: SVC syndrome H&P: obtained from office Past Medical History: other (Severe gastroparesis, G-tube and J-tube) Past Surgical History: bowel surgery, Other (G-tube and J-tube ; SVC stent) Social history: no significant social history - Allergies and Medications Current Medications: Allergies dexamethasone [From Decadron] Allergy (Verified 12/25/18 16:29) Angioedema diazepam [From Valium] Allergy (Verified 12/25/18 16:29) Angioedema ketorolac [From Toradol] Allergy (Verified 12/25/18 16:29) Swelling metoclopramide [From Reglan] Allergy (Verified 12/25/18 16:29) Unknown Penicillins Allergy (Verified 12/25/18 16:29) Swelling prochlorperazine [From Compazine] Allergy (Verified 12/25/18 16:29) Unknown promethazine [From Phenergan] Allergy (Verified 12/25/18 16:29) Swelling tramadol Allergy (Verified 12/25/18 16:29) Swelling adhesive tape Adverse Reaction (Verified 12/25/18 16:29) Itching fentanyl Adverse Reaction (Verified 12/25/18 16:29) Dizziness Apple Allergy (Uncoded 06/09/18 15:36) Swelling Sour cream Allergy (Uncoded 06/09/18 15:36) Swelling Whip cream Allergy (Uncoded 06/09/18 15:36) Swelling Home Medications Medication Instructions Recorded Confirmed Last Taken Type Quetiapine Fumarate [SEROquel] 400 mg PO HS 12/07/18 10/11/20 10/10/20 History 1 tab Enoxaparin 80 mg SUB-Q Q12HR #30 syringe 12/09/18 10/11/20 10/10/20 Rx 80 mg Ondansetron [Zofran Oral Liq] 4 mg PO PRN PRN 06/02/19 10/11/20 10/10/20 History Acetaminophen/Codeine [Tylenol 1 tab PO Q6H PRN #25 tab 09/05/20 10/11/20 10/10/20 Rx /Codeine # 3 tab] 1 tab Buprenorphine [Butrans] 1 each TD QWEEK 09/05/20 10/11/20 08/31/20 History 10mcg/hr Active Medications Diphenhydramine HCl (Diphenhydramine 50 Mg/Ml Vial) 25 mg IV ONCE PRN PRN Reason: Itching Stop: 10/11/20 20:00 Last Admin: 10/11/20 13:48 Dose: 25 mg Documented by: Hydromorphone HCl (Hydromorphone 1 Mg/1 Ml Inj) 0.5 mg IV Q10MIN PRN PRN Reason: Pain , Severe (7-10) Stop: 10/11/20 23:00 Last Admin: 10/11/20 13:58 Dose: 0.5 mg Documented by: Sodium Chloride (Nacl 0.9% 1000 Ml) 1,000 mls @ 42 mls/hr IV DIRECT HERI Last Admin: 10/11/20 10:00 Dose: 200 mls Documented by: Clindamycin HCl (Cleocin 900 Mg/50 Ml) 900 mg in 50 mls @ 100 mls/hr IV PREOP NR; Protocol Stop: 10/11/20 20:00 Last Admin: 10/11/20 10:00 Dose: 50 mls Documented by: - Physical exam General appearance: mild distress (Swelling of the upper extremities) HEENT: Other (Swelling of the arms and varicosities of the breast and abdomen) Lungs: Normal air movement Gastrointestinal: normal Extremities: abnormal (Bilateral upper extremity swelling, right worse than left) - Brief post op/procedure progress note Date of procedure: 10/11/20 Pre-op diagnosis: SVC syndrome, bilateral upper extremity swelling, post thrombotic syndrome Post-op diagnosis: same Procedure: 1. Ultrasound-guided access of the right basilic vein 2. Venography of the right upper extremity. 3. Selection of the right subclavian vein with venography from a right basilic vein approach 4. Ultrasound-guided access of the right common femoral vein. 5. Selection of the SVC with venography. 6. Selection of the right internal jugular vein with venography. 7. Selection of the right innominate vein with venography. 8. Selection of the left internal jugular vein with venography. 9. Selection of the left subclavian vein with venography. 10. Angioplasty of the right innominate vein with an 8 mm x 80 mm angioplasty balloon. 11. Angioplasty of the right internal jugular vein with a 10 mm x 40 mm angioplasty balloon 12. Attempted crossing of the right subclavian vein chronic total occlusion with multiple wires and catheters from a bidirectional approach 13. Fluoroscopic guided removal of the right internal jugular vein dual-lumen tunneled cuffed smallbore catheter 14. Ultrasound-guided access of the right internal jugular vein. 15. Fluoroscopic guided placement of a right internal jugular vein dual-lumen tunneled noncuffed smallbore catheter Anesthesia: local (w/ conscious sedation) Surgeon: MAURICIO SOTO Estimated blood loss: minimal Condition: stable - Hospital course Hospital course: Patient tolerated procedure well. No immediate postprocedural complications. - Disposition Condition at discharge: Stable Disposition: DC-01 TO HOME OR SELFCARE - Discharge Diagnoses (1) Malfunction of peripheral inserted central catheter Status: Acute (2) Chronic superior vena cava occlusion Status: Acute (3) Hypoglycemia Status: Acute (4) Gastroparesis Status: Chronic (5) Superior vena cava syndrome Status: Chronic Short Stay Discharge Plan Activity: advance as tolerated Weight Bearing Status: Weight Bear as Tolerated Wound: keep clean and dry Follow up with: MUSTAPHA BURGOS MD [Primary Care Provider] - 7 Days Prescriptions: Sodium Chloride 0.9 % (Flush) [[place] Sodium Chlor Flush] 10 ml IJ TID #90 syringe Doxycycline Hyclate [Doxycycline Hyclate TAB] 100 mg PO BID #28 tablet Acetaminophen/Codeine [Tylenol /Codeine # 3 tab] 1 tab PO Q4HR PRN #25 tablet PRN Reason: Pain
--- NOTE | 2020-10-11 14:49 | Operative Report ---
Operative Report Operative Report: EXAM: 1. Ultrasound-guided access of the right basilic vein 2. Venography of the right upper extremity. 3. Selection of the right subclavian vein with venography from a right basilic vein approach 4. Ultrasound-guided access of the right common femoral vein. 5. Selection of the SVC with venography. 6. Selection of the right internal jugular vein with venography. 7. Selection of the right innominate vein with venography. 8. Selection of the left internal jugular vein with venography. 9. Selection of the left subclavian vein with venography. 10. Angioplasty of the right innominate vein with an 8 mm x 80 mm angioplasty balloon. 11. Angioplasty of the right internal jugular vein with a 10 mm x 40 mm angioplasty balloon 12. Attempted crossing of the right subclavian vein chronic total occlusion with multiple wires and catheters from a bidirectional approach 13. Fluoroscopic guided removal of the right internal jugular vein dual-lumen tunneled cuffed smallbore catheter 14. Ultrasound-guided access of the right internal jugular vein. 15. Fluoroscopic guided placement of a right internal jugular vein dual-lumen tunneled noncuffed smallbore catheter DATE: 10/11/20 SUSTAINABILITY ENGINEER: MAURICIO SOTO MD INDICATION: SVC syndrome, gastroparesis, chronic hypoglycemia, dumping syndrome. Patient has previously had multiple TPN catheters which resulted in SVC syndrome. 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 She now presents for treatment of her SVC syndrome, attempted recannulization of her right upper extremity, and a new TPN catheter. MEDICATIONS: Please see nursing report for full details. DEVICES: 8 mm x 80 mm angioplasty balloon 10 mm x 40 mm angioplasty balloon Tunneled noncuffed dual lumen smallbore catheter CONTRAST: Please see general labor forklift operator report for full details. ANESTHESIA: MAC PROCEDURE: The risks, benefits, and alternatives were discussed with the patient; written informed consent was obtained. The right groin, right neck, and right arm were prepped and draped in sterile fashion. The patient was heparinized. Ultrasound was used to evaluate the right common femoral vein which was patent. Under direct ultrasound guidance, the right common femoral vein was accessed with a 21-gauge micropuncture needle. 0.018 inch wire was passed into the IVC. Needle was exchanged for transitional dilator. Wire was exchanged for 0.035 inch wire. Transitional dilator was exchanged for a 5 [place] sheath. Glidewire advantage wire was then passed into the SVC and the sheath was exchanged for a 8 [place] destination. Patient was partially heparinized. Ultrasound was used to evaluate the right basilic vein which was patent. Under direct ultrasound guidance, the right basilic vein was accessed with a 21-gauge micropuncture needle. 0.018 inch wire was passed into the basilic vein. Needle was exchanged for 6 glide sheath slender. There was some difficulty passing the 0.035 inch Marc wire centrally and therefore digital subtraction angiography was performed demonstrating occlusion of the distal basilic vein. The rest of the basilic vein was patent. The axillary vein was patent. The right subclavian vein was irregular compatible with post thrombotic syndrome. The right innominate vein was irregular compatible with post thrombotic syndrome there are numerous collaterals extending from the right axillary and subclavian veins which ultimately passed to the azygos system. 0.035 inch Glidewire advantage was then passed into the axillary vein and angled catheter and ultimately a Navicross catheter was advanced over the wire and used to select the right subclavian vein. From the basilic vein approach, numerous attempts were made to cross the right innominate vein. Multiple wires and catheters were used. From the right femoral approach, numerous attempts were made to cross the right subclavian vein. The multiple synechiae a in the dissected path of the subclavian and innominate vein would not allow crossing. Multiple wires and catheters were us ed. Wires included numerous weighted wires. I then selected the left subclavian vein and digital subtraction angiography was performed demonstrating patency of the left subclavian vein and innominate vein. The stented SVC was widely patent without restenosis. The left internal jugular vein was selected and digital subtraction angiography was performed demonstrating patency of the left internal jugular vein. From a femoral approach, the right innominate vein was selected and digital subtraction angiography was performed demonstrating 30 to 40% narrowing of the mid to lower portion of the right innominate vein. There were collaterals that entered the right innominate vein. 8 mm x 80 mm angioplasty balloon was used to perform angioplasty of the mid to lower portion of the right innominate vein. Digital subtraction angiography demonstrated less than 10% residual narrowing. From a femoral approach, the right internal jugular vein was selected and digital subtraction angiography was performed demonstrating patency of the upper and midportion of the internal jugular vein with 30 to 40% narrowing of the lower portion of the internal jugular vein. 10 mm x 40 mm angioplasty balloon was used to perform angioplasty of the internal jugular vein. Digital subtraction angiography demonstrated less than 10% residual narrowing. Ultimately, I could not cross the right innominate vein from either the right basilic or right femoral approach. The old dual-lumen tunneled catheter was then infiltrated with lidocaine and catheter was removed after cuff was extracted and suture was cut. The tip of the catheter was cut off and sent for culture. The area was cleaned again with ChloraPrep numerous times. Ultrasound was then used to evaluate the right neck and this demonstrated paten cy of the right internal jugular vein. Under direct ultrasound guidance, the right internal jugular vein was accessed with a 21-gauge micro puncture needle. 0.018 inch wire was passed into the IVC. Needle was exchanged for a transitional dilator. Wire was exchanged for 0.018 inch wire passed into the IVC. This was exchanged for a peel-away sheath. An appropriate area to tunnel a small bore tunneled catheter was then identified inferior and lateral to the venotomy. Dermatotomy was made. This was separate from the old site. The area was infiltrated with lidocaine. Small bore dual-lumen catheter was then tunneled from the dermatotomy to the venotomy. The venotomy wire was then serially dilated and a peel-away sheath was advanced over the wire. Small bore dual-lumen catheter was centrally positioned under fluoroscopic guidance and the peel-away sheath was removed. There were no kinks in the catheter. The venotomy was then closed with Dermabond. The smallbore dual-lumen catheter was secured with 3-0 Ethilon. The dual lumen smallbore catheter was then infused with heparinized saline with a claves. Biopatch and sterile dressing applied. At this point, all femoral and basilic vein accesses were removed and pressure was held until hemostasis was achieved. Sterile dressings were applied. FINDINGS: Please see procedure note above. IMPRESSION: 1. Successful right internal jugular vein and right innominate vein angioplasty as described above. 2. Successful selection from a femoral and basilic vein of multiple order vessels. 3. Successful fluoroscopic and ultrasound-guided placement of a right internal jugular vein dual lumen smallbore noncuffed catheter. 4. Successful fluoroscopic guided removal of the right internal jugular dual- lumen smallbore cuffed catheter.
[2020-10-11] MEDS ORDERED: PHENYLEPHRINE 10 MG/1 ML INJ SDV ONE (15:02)
[2020-10-11] MEDS ORDERED: PHENYLEPHRINE/NS 1,000 MCG/10 ML SYRINGE (OR USE) IV ONE (15:02)
[2020-10-11 16:02] VITALS: BP 102/59
== END 2020-10-11 16:56 | disposition home or self-care (01) ==
LOC: CATHLABREC 06:22
PROVIDERS: ATTEND Radiology Diagnostic Radiology
DX: I87.1 Compression of vein (principal); K21.9 Gastro-esophageal reflux disease without esophagitis; E11.51 Type 2 diabetes mellitus with diabetic peripheral angiopathy without gangrene; D64.9 Anemia, unspecified; Z80.8 Family history of malignant neoplasm of other organs or systems; Z88.0 Allergy status to penicillin; Z88.8 Allergy status to other drugs, medicaments and biological substances; Z79.899 Other long term (current) drug therapy; Z87.891 Personal history of nicotine dependence; Z87.01 Personal history of pneumonia (recurrent); Z86.711 Personal history of pulmonary embolism; Z90.49 Acquired absence of other specified parts of digestive tract; Z98.82 Breast implant status; Z98.890 Other specified postprocedural states; Z83.3 Family history of diabetes mellitus; Z91.81 History of falling; Z90.710 Acquired absence of both cervix and uterus
CPT/HCPCS: 36415; 36581; 37248; 37249; 76937; 77001; 80048; 82962; 85027; 85610; 85730; 87040; 87116; C1725; C1751; C1769; C1887; C1894; J1170; J1200; J1644; J2250; J2370; J2405; J2704; J7030; 36558; 36589; 87076; 87186; J7040; Q9967

== ENCOUNTER 2020-12-12 06:06 | Day surgery (SDC) | payer MEDICARE ==
[2020-12-12] MEDS ORDERED: SODIUM CHLORIDE 0.9% 1000 ML 1,000 ML IV SCH (07:30)
[2020-12-12 07:44] LABS: Basophils % (Auto) 0.4 % (0.0-1.8); Hematocrit 34.5 % (30.3-42.9); Hemoglobin 11.3 gm/dl (10.1-14.3); Lymphocytes # (Auto) 1.6 K/mm3 (1.2-5.4); Lymphocytes % (Auto) 25.9 % (13.4-35.0); Mean Corpuscular HGB Conc 33 % (30-34); Mean Corpuscular Volume 91 fl (79-97); Monocytes # (Auto) 0.4 K/mm3 (0.0-0.8); Monocytes % (Auto) 6.8 % (0.0-7.3); Platelet Count 270 K/mm3 (140-440); Red Blood Count 3.78 M/mm3 (3.65-5.03); Red Cell Distribution Width 14.3 % (13.2-15.2)
[2020-12-12] MEDS ORDERED: ONDANSETRON 4 MG/2 ML INJ ONE (07:48)
[2020-12-12 07:50] LABS: Blood Urea Nitrogen 7 mg/dL (7-17); Calcium 9.2 mg/dL (8.4-10.2); Hemolysis Index 3; INR 0.94 (0.87-1.13)
[2020-12-12 07:51] LABS: Partial Thromboplastin Time 27.7 Sec. (24.2-36.6)
[2020-12-12] MEDS ORDERED: ONDANSETRON 4 MG/2 ML INJ IV NR (08:00)
--- NOTE | 2020-12-12 08:04 | Anesthesia Consultation ---
Anesthesia Consult and Med Hx Date of service: 12/12/20 - Airway Anesthetic Teeth Evaluation: Good ROM Head & Neck: Adequate Mental/Hyoid Distance: Adequate Mallampati Class: Class II Intubation Access Assessment: Probably Good - Pre-Operative Health Status ASA Pre-Surgery Classification: ASA3 Proposed Anesthetic Plan: MAC - Pulmonary Hx Smoking: Yes (former) Hx Asthma: No Hx Respiratory Symptoms: No COPD: No - Cardiovascular System Hx Hypertension: No Hx Heart Attack/AMI: No Hx Percutaneous Transluminal Coronary Angioplasty (PTCA): No Hx Cardia Arrhythmia: No Hx Pacemaker: No Hx Internal Defibrillator: No Hx Peripheral Vascular Disease: Yes (right upper arm vein thrombosis, SVC stenosis) - Central Nervous System Hx Seizures: No CVA: No Hx Psychiatric Problems: Yes (depression) - Gastrointestinal Hx Gastroesophageal Reflux Disease: No (gastroparesis) - Endocrine Hx Renal Disease: No Hx End Stage Renal Disease: No Hx Liver Disease: No Hx Non-Insulin Dependent Diabetes: Yes (occasional hypoglycemia) Hx Thyroid Disease: No - Hematic Hx Anemia: Yes Hx Sickle Cell Disease: No - Other Systems Hx Cancer: No Hx Obesity: No
--- NOTE | 2020-12-12 08:05 | Anesthesia Day of Surgery ---
Anesthesia Day of Surgery - Day of Surgery Patient Examined: Yes Patient H&P Reviewed: Yes Patient is NPO: Yes
[2020-12-12] MEDS ORDERED: MIDAZOLAM 2 MG/2 ML INJ ONE ×2 (08:09→08:38)
[2020-12-12] MEDS ORDERED: fentaNYL 100 MCG/2 ML INJ ONE (08:09)
[2020-12-12] MEDS ORDERED: HEPARIN/NS 5000 UNIT/500ML 500 ML IR ONE ×2 (08:10→10:11)
[2020-12-12 08:24] LABS: BUN/Creatinine Ratio 10
[2020-12-12] MEDS ORDERED: LIDOCAINE 1%/EPINEPHRINE 1:100,000 VIAL (20 ML) INFILTRATI ONE (08:31)
[2020-12-12] MEDS ORDERED: propofoL 200 MG/20 ML VIAL IV ONE ×5 (08:39→11:17)
[2020-12-12] MEDS ORDERED: HYDROmorphone 1 MG/1 ML INJ ONE ×2 (08:39→11:53)
--- NOTE | 2020-12-12 09:16 | Short Stay Summary ---
Short Stay Documentation Date of service: 12/12/20 Narrative H&P: 45-year-old female with recurrent episodes of head and neck swelling compatible with SVC syndrome. Please see H&P on chart for further details. - History Principal diagnosis: SVC syndrome H&P: obtained from office - Allergies and Medications Current Medications: Allergies dexamethasone [From Decadron] Allergy (Verified 12/25/18 16:29) Angioedema diazepam [From Valium] Allergy (Verified 12/25/18 16:29) Angioedema ketorolac [From Toradol] Allergy (Verified 12/25/18 16:29) Swelling metoclopramide [From Reglan] Allergy (Verified 12/25/18 16:29) Unknown Penicillins Allergy (Verified 12/25/18 16:29) Swelling prochlorperazine [From Compazine] Allergy (Verified 12/25/18 16:29) Unknown promethazine [From Phenergan] Allergy (Verified 12/25/18 16:29) Swelling tramadol Allergy (Verified 12/25/18 16:29) Swelling adhesive tape Adverse Reaction (Verified 12/25/18 16:29) Itching fentanyl Adverse Reaction (Verified 12/25/18 16:29) Dizziness Apple Allergy (Uncoded 06/09/18 15:36) Swelling Sour cream Allergy (Uncoded 06/09/18 15:36) Swelling Whip cream Allergy (Uncoded 06/09/18 15:36) Swelling Home Medications Medication Instructions Recorded Confirmed Last Taken Type Quetiapine Fumarate [SEROquel] 400 mg PO HS 12/07/18 12/12/20 12/11/20 History 400 mg Enoxaparin 80 mg SUB-Q Q12HR #30 syringe 12/09/18 12/12/20 12/11/20 09:00 Rx 80 mg Ondansetron [Zofran Oral Liq] 4 mg PO PRN PRN 06/02/19 12/12/20 12/11/20 History 4 mg Sodium Chloride 0.9 % (Flush) 10 ml IJ TID #90 syringe 10/11/20 12/12/20 12/11/20 Rx [[place] Sodium Chlor Flush] 10 ml Active Medications Sodium Chloride (Nacl 0.9% 1000 Ml) 1,000 mls @ 42 mls/hr IV DIRECT HERI Last Admin: 12/12/20 07:59 Dose: 42 mls/hr Documented by: Clindamycin HCl (Cleocin 900 Mg/50 Ml) 900 mg in 50 mls @ 100 mls/hr IV PREOP NR; Protocol Stop: 12/12/20 09:30 Ondansetron HCl (Ondansetron 4 Mg/2 Ml Inj) 4 mg IV PREOP NR Stop: 12/12/20 13:00 Last Admin: 12/12/20 07:51 Dose: 4 mg Documented by: - Physical exam General appearance: no acute distress (headache) Lungs: Normal air movement Gastrointestinal: normal Extremities: normal temperature, normal color, abnormal (edema right arm and mild neck) - Brief post op/procedure progress note Date of procedure: 12/12/20 Pre-op diagnosis: TPN dependence, tunneled line malfunction, SVC syndrome Post-op diagnosis: same Procedure: 1. Ultrasound-guided access of the right common femoral vein. 2. Selection of the SVC with venography. 3. Selection of the right internal jugular vein with venography. 4. Selection of the right innominate vein with venography. 5. Selection of the left internal jugular vein with venography. 6. Selection of the left innominate vein with venography. 7. Angioplasty of the right internal jugular vein with a 10 mm x 40 mm angioplasty balloon 8. Angioplasty of the SVC stent with a 14 mm x 40 mm angioplasty balloon 9. Angioplasty of the left innominate vein with a 12 mm x 40 mm angioplasty balloon 10. Fluoroscopic guided removal of the right internal jugular vein dual-lumen tunneled smallbore catheter 11. Ultrasound-guided access of the left internal jugular vein. 15. Fluoroscopic guided placement of a left internal jugular vein dual-lumen tunneled cuffed smallbore catheter Anesthesia: MAC Surgeon: MAURICIO SOTO Estimated blood loss: minimal Condition: stable - Hospital course Hospital course: Tolerated procedure well. Ready for discharge. - Disposition Condition at discharge: Stable Disposition: 01 HOME / SELF CARE / HOMELESS - Discharge Diagnoses (1) Chronic superior vena cava occlusion Status: Acute (2) Malfunction of peripheral inserted central catheter Status: Acute (3) Gastroparesis Status: Chronic (4) Superior vena cava syndrome Status: Chronic Short Stay Discharge Plan Activity: advance as tolerated Weight Bearing Status: Weight Bear as Tolerated Diet: regular Wound: keep clean and dry, other (do not life more than 10 lbs for 1 week ; keep catheter clean and dry ; do not get catheters wet) Additional Instructions: Follow up with DR Soto for any problems. Notify DR Soto for any S/S of infection temp greater than 100.5, swelling redness foul drainage or bleeding. Call for follow up appt with DR Soto. Follow up with: MUSTAPHA BURGOS MD [Primary Care Provider] - 7 Days
[2020-12-12] MEDS: LIDOCAINE (2%) 20 MG/1 ML VIAL 20 ML MDV INFILTRATI ONE ×2 (09:30→10:03)
[2020-12-12] MEDS: HEPARIN 10,000 UNITS/10 ML VIAL ONE (10:10)
[2020-12-12] MEDS: LIDOCAINE 1%/EPINEPHRINE 1:100,000 VIAL (20 ML) INFILTRATI ONE (10:43)
[2020-12-12] MEDS ORDERED: diphenhydrAMINE 50 MG/ML VIAL IV PRN (11:48)
[2020-12-12] MEDS ORDERED: diphenhydrAMINE 50 MG/ML VIAL ONE ×2 (11:53→12:24)
--- NOTE | 2020-12-12 11:59 | Operative Report ---
Operative Report Operative Report: EXAM: 1. Ultrasound-guided access of the right common femoral vein. 2. Selection of the SVC with venography. 3. Selection of the right internal jugular vein with venography. 4. Selection of the right innominate vein with venography. 5. Selection of the left internal jugular vein with venography. 6. Selection of the left innominate vein with venography. 7. Angioplasty of the right internal jugular vein with a 10 mm x 40 mm angioplasty balloon 8. Angioplasty of the SVC stent with a 14 mm x 40 mm angioplasty balloon 9. Angioplasty of the left innominate vein with a 12 mm x 40 mm angioplasty balloon 10. Fluoroscopic guided removal of the right internal jugular vein dual-lumen tunneled smallbore catheter 11. Ultrasound-guided access of the left internal jugular vein. 15. Fluoroscopic guided placement of a left internal jugular vein dual-lumen tunneled cuffed smallbore catheter DATE: 12/12/20 OIL GAUGER: MAURICIO SOTO MD INDICATION: SVC syndrome, gastroparesis, chronic hypoglycemia, dumping syndrome. Patient has previously had multiple TPN catheters which resulted in SVC syndrome. 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 She now presents for treatment of her SVC syndrome, and a new TPN catheter. MEDICATIONS: Please see nursing report for full details. DEVICES: 14 mm x 40 mm angioplasty balloon 12 mm x 40 mm angioplasty balloon 10 mm x 40 mm angioplasty balloon Tunneled cuffed dual lumen smallbore catheter CONTRAST: Please see farm laborer report for full details. ANESTHESIA: MAC PROCEDURE: The risks, benefits, and alternatives were discussed with the patient; written informed consent was obtained. The right groin, right neck, and right arm were prepped and draped in sterile fashion. The patient was heparinized. Ultrasound was used to evaluate the right common femoral vein which was patent. Under direct ultrasound guidance, the right common femoral vein was accessed with a 21-gauge micropuncture needle. 0.018 inch wire was passed into the IVC. Needle was exchanged for transitional dilator. Wire was exchanged for 0.035 inch wire. Transitional dilator was exchanged for a 5 [place] sheath. Glidewire advantage wire was then passed into the SVC and the sheath was exchanged for a 8 [place] destination. Patient was partially heparinized. From a femoral approach, the right innominate vein was selected and digital subtraction angiography was performed. The right internal jugular vein was selected and digital subtraction angiography was performed. Digital subtraction angiography demonstrated 30% stenosis of the ostium of the right internal jugular vein and slight lack of expansion of the proximal SVC stent which was a 14 mm x 40 mm protg stent. 10 mm x 40 mm angioplasty balloon was used to perform angioplasty of the internal jugular vein ostium. 14 mm x 40 mm angioplasty balloon was used to attempt to reexpand the stent. Digital subtraction angiography demonstrated no residual narrowing of the right internal jugular vein ostium, patency of the right innominate vein, and patency of the SVC stent with slightly better expansion. The left innominate vein was selected and digital subtraction angiography was performed. The left internal jugular vein was selected and digital subtraction angiography was performed. The left internal jugular vein was patent. The left innominate vein was patent. There is a small amount of stent overhanging into the left innominate vein. In order to better seat the stent and to prevent overlap into the left innominate vein, I decided to perform angioplasty of the left innominate vein. 12 mm x 40 mm angioplasty balloon was used to perform angioplasty of the left innominate vein. Digital subtraction angiography demonstrated less overlap into the left innominate vein. At this point, I decided the patient was optimized from a central venous standpoint. The next part of the procedure was going to be to switch the tunneled smallbore catheters. The old dual-lumen tunneled catheter was then infiltrated with lidocaine and catheter was removed after cuff was extracted and suture was cut. The area was cleaned again with ChloraPrep numerous times. Sterile dressing was applied. Ultrasound was then used to evaluate the left neck and this demonstrated patency of the left internal jugular vein. Under direct ultrasound guidance, the left internal jugular vein was accessed with a 21-gauge micro puncture needle. 0.018 inch wire was passed into the SVC Needle was exchanged for a transitional dilator. Inner cannula and 0.018 wire were removed. Wire was exchanged for 0.035 inch wire passed into the IVC. An appropriate area to tunnel a small bore tunneled catheter was then identified inferior and lateral to the venotomy. Dermatotomy was made. The area was infiltrated with lidocaine. Small bore dual-lumen catheter was then tunneled from the dermatotomy to the venotomy. The venotomy wire was then serially dilated and a 6 Fr peel-away sheath was advanced over the wire. Unfortunately, the small bore catheter could not be advanced through the peel away sheath and it had to be exchanged for an 8 Fr peel away sheath. Small bore dual-lumen catheter was centrally positioned under fluoroscopic guidance and the peel-away sheath was removed. There were no kinks in the catheter. The venotomy was then closed with 4-0 Vicryl and Dermabond. The smallbore dual-lumen catheter was secured with 3-0 Ethilon. The dual lumen smallbore catheter was then infused with heparinized saline with a claves. Biopatch and sterile dressing applied. At this point, the femoral access was removed and pressure was held until hemostasis was achieved. Sterile dressings were applied. FINDINGS: Please see procedure note above. IMPRESSION: 1. Successful right internal jugular vein, SVC and left innominate vein angioplasty as described above. 2. Successful selection from a femoral vein of multiple order vessels. 3. Successful fluoroscopic and ultrasound-guided placement of a left internal jugular vein dual lumen smallbore cuffed catheter. 4. Successful fluoroscopic guided removal of the right internal jugular dual- lumen smallbore non-cuffed catheter.
[2020-12-12] MEDS ORDERED: ACETAMINOPEN W/CODEINE 120-12MG ORAL LIQD 5 ML FEEDTUBE ONE (12:53)
[2020-12-12 14:11] VITALS: BP 100/58
[2020-12-12] MEDS ORDERED: HYDROmorphone 1 MG/1 ML INJ IV PRN (17:45)
--- NOTE | 2020-12-12 18:48 | Post Anesthesia Evaluation ---
- Post Anesthesia Evaluation Patient Participated: Yes Airway Patent: Yes Stable Respiratory Function: Yes Nausea/Vomiting: No Temp > 96.8F: Yes Pain Manageable: Yes Adequeate Hydration: Yes Anesthesia Complications: No Block Receding Appropriately: Not Applicable Patient on Ventilator: No
== END 2020-12-12 14:55 | disposition home or self-care (01) ==
LOC: CATHLABREC 06:06
PROVIDERS: ATTEND Radiology Diagnostic Radiology
DX: K31.84 Gastroparesis (principal); I87.1 Compression of vein; I73.9 Peripheral vascular disease, unspecified; E11.9 Type 2 diabetes mellitus without complications; F32.9 Major depressive disorder, single episode, unspecified; K21.9 Gastro-esophageal reflux disease without esophagitis; E87.2 Acidosis; Z90.49 Acquired absence of other specified parts of digestive tract; Z90.710 Acquired absence of both cervix and uterus; Z98.890 Other specified postprocedural states; Z86.39 Personal history of other endocrine, nutritional and metabolic disease; Z87.891 Personal history of nicotine dependence; Z79.899 Other long term (current) drug therapy; Z88.8 Allergy status to other drugs, medicaments and biological substances; Z82.49 Family history of ischemic heart disease and other diseases of the circulatory system
CPT/HCPCS: 36415; 36558; 36589; 37248; 37249; 76937; 77001; 80048; 85025; 85610; 85730; 96374; C1725; C1751; C1769; C1887; C1892; J1170; J1200; J1644; J2250; J2405; J2704; J7030; J3010; Q9967

== ENCOUNTER 2021-02-14 09:35 | Day surgery (SDC) | payer MEDICARE ==
[2021-02-14] MEDS ORDERED: SODIUM CHLORIDE 0.9% 1000 ML 1,000 ML IV SCH (11:00)
[2021-02-14 11:43] LABS: Hematocrit 34.1 % (30.3-42.9); Hemoglobin 11.2 gm/dl (10.1-14.3); Mean Corpuscular HGB Conc 33 % (30-34); Mean Corpuscular Volume 88 fl (79-97); Platelet Count 277 K/mm3 (140-440); Red Blood Count 3.86 M/mm3 (3.65-5.03); Red Cell Distribution Width 15.2 % (13.2-15.2)
[2021-02-14 11:54] LABS: INR 0.82 (0.87-1.13)
[2021-02-14 11:55] LABS: Partial Thromboplastin Time 35.8 Sec. (24.2-36.6)
[2021-02-14 12:00] LABS: BUN/Creatinine Ratio 14; Blood Urea Nitrogen 10 mg/dL (7-17); Calcium 9.1 mg/dL (8.4-10.2); Hemolysis Index 173
--- NOTE | 2021-02-14 12:59 | Anesthesia Day of Surgery ---
Anesthesia Day of Surgery - Day of Surgery Patient Examined: Yes Patient H&P Reviewed: Yes Patient is NPO: Yes
--- NOTE | 2021-02-14 12:59 | Anesthesia Consultation ---
Anesthesia Consult and Med Hx Date of service: 02/14/21 - Airway Anesthetic Teeth Evaluation: Good ROM Head & Neck: Adequate Mental/Hyoid Distance: Adequate Mallampati Class: Class I Intubation Access Assessment: Good - Pre-Operative Health Status ASA Pre-Surgery Classification: ASA3 Proposed Anesthetic Plan: MAC - Pulmonary Hx Smoking: Yes (former) Hx Respiratory Symptoms: No - Cardiovascular System Hx Hypertension: No Hx Heart Attack/AMI: No Hx Percutaneous Transluminal Coronary Angioplasty (PTCA): No Hx Peripheral Vascular Disease: Yes (right upper arm vein thrombosis, SVC stenosis) - Central Nervous System CVA: No Hx Psychiatric Problems: Yes (depression) - Gastrointestinal Hx Gastroesophageal Reflux Disease: No (gastroparesis) - Endocrine Hx Renal Disease: No Hx Liver Disease: No Hx Non-Insulin Dependent Diabetes: Yes (occasional hypoglycemia) Hx Thyroid Disease: No - Hematic Hx Anemia: Yes - Other Systems Hx Obesity: No - Additional Comments Anesthesia Medical History Comments: Has had MAC anesthetic for similar procedure many times. No significant change in health since last anesthetic 11/2020. Previous anesthesia records reviewed.
[2021-02-14] MEDS ORDERED: HEPARIN 10,000 UNITS/10 ML VIAL ONE (13:35)
[2021-02-14] MEDS: HEPARIN/NS 5000 UNIT/500ML 1,000 ML IR ONE ×2 (13:47→13:50)
[2021-02-14] MEDS: LIDOCAINE 1%/EPINEPHRINE 1:100,000 VIAL (20 ML) INFILTRATI ONE ×2 (13:48→14:18)
[2021-02-14] MEDS ORDERED: KETAMINE/STERILE WATER 50 MG/ML SYRINGE ONE (14:05)
[2021-02-14] MEDS ORDERED: ONDANSETRON 4 MG/2 ML INJ ONE (14:05)
--- NOTE | 2021-02-14 14:42 | Short Stay Summary ---
Short Stay Documentation Date of service: 02/14/21 Narrative H&P: 45-year-old female with severe gastroparesis and prior SVC syndrome status post SVC stenting and left internal jugular vein tunneled line for TPN with line malfunction for TPN. Presents for exchange/replacement. - History Principal diagnosis: Gastroparesis, TPN line malfunction H&P: obtained from office - Allergies and Medications Current Medications: Allergies dexamethasone [From Decadron] Allergy (Verified 12/25/18 16:29) Angioedema diazepam [From Valium] Allergy (Verified 12/25/18 16:29) Angioedema ketorolac [From Toradol] Allergy (Verified 12/25/18 16:29) Swelling metoclopramide [From Reglan] Allergy (Verified 12/25/18 16:29) Unknown Penicillins Allergy (Verified 12/25/18 16:29) Swelling prochlorperazine [From Compazine] Allergy (Verified 12/25/18 16:29) Unknown promethazine [From Phenergan] Allergy (Verified 12/25/18 16:29) Swelling tramadol Allergy (Verified 12/25/18 16:29) Swelling adhesive tape Adverse Reaction (Verified 12/25/18 16:29) Itching fentanyl Adverse Reaction (Verified 12/25/18 16:29) Dizziness Apple Allergy (Uncoded 06/09/18 15:36) Swelling Sour cream Allergy (Uncoded 06/09/18 15:36) Swelling Whip cream Allergy (Uncoded 06/09/18 15:36) Swelling Home Medications Medication Instructions Recorded Confirmed Last Taken Type Quetiapine Fumarate [SEROquel] 400 mg PO HS 12/07/18 12/12/20 12/11/20 History 400 mg Enoxaparin 80 mg SUB-Q Q12HR #30 syringe 12/09/18 12/12/20 12/11/20 09:00 Rx 80 mg Ondansetron [Zofran Oral Liq] 4 mg PO PRN PRN 06/02/19 12/12/20 12/11/20 History 4 mg Sodium Chloride 0.9 % (Flush) 10 ml IJ TID #90 syringe 10/11/20 12/12/20 12/11/20 Rx [[place] Sodium Chlor Flush] 10 ml Active Medications Sodium Chloride (Nacl 0.9% 1000 Ml) 1,000 mls @ 25 mls/hr IV DIRECT HERI Clindamycin HCl (Cleocin 900 Mg/50 Ml) 900 mg in 50 mls @ 100 mls/hr IV PREOP NR; Protocol Stop: 02/14/21 20:00 Last Admin: 02/14/21 13:50 Dose: 50 mls Documented by: - Physical exam General appearance: no acute distress HEENT: EOMI Lungs: Normal air movement Extremities: pulses intact, normal temperature, normal color - Brief post op/procedure progress note Date of procedure: 02/14/21 Pre-op diagnosis: TPN malfunction, gastroparesis Post-op diagnosis: same Procedure: 1. Fluoroscopic guided exchange of the left internal jugular vein tunneled cuffed dual lumen small bore catheter Anesthesia: MAC Surgeon: MAURICIO SOTO Estimated blood loss: minimal Condition: stable - Hospital course Hospital course: Tolered procedure without issue. Ready for discharge. - Disposition Condition at discharge: Stable Disposition: 01 HOME / SELF CARE / HOMELESS - Discharge Diagnoses (1) Chronic superior vena cava occlusion Status: Acute (2) Gastroparesis Status: Chronic Short Stay Discharge Plan Activity: advance as tolerated Weight Bearing Status: Weight Bear as Tolerated Diet: advance as tolerated Wound: keep clean and dry Follow up with: MUSTAPHA BURGOS MD [Primary Care Provider] - 7 Days
--- NOTE | 2021-02-14 14:56 | Operative Report ---
Operative Report Operative Report: EXAM: 1. Fluoroscopic guided exchange of a tunneled cuffed dual-lumen left internal jugular smallbore catheter DATE: 02/14/2021 BILLING COLLECTIONS SPECIALIST: MAURICIO SOTO MD INDICATION: Gastroparesis, TPN dependence, TPN line malfunction requiring exchange MEDICATIONS: Please see nursing report for full details. DEVICES: 6 Syrian power line cut at 29 cm CONTRAST: None PROCEDURE: The risks, benefits, and alternatives were discussed with the patient; written informed consent was obtained. Patient was brought to the angiography suite and anesthesia sedated the patient. Left neck was prepped and draped in a sterile fashion. Line was visualized in the right atrium. SVC stent was noted. The dermatotomy of the left tunneled smallbore catheter was infiltrated with lidocaine. Claves were removed and heparinized saline was infused. Under fluoroscopic guidance, two 0.018 inch wire was were passed in each lumen of the tunneled smallbore catheter. The small bore catheter was removed over the wire and the wire was then cleaned with ChloraPrep Afterwards, a new tunneled smallbore catheter was cut to appropriate length and then advanced over the 0.018 inch wires and passed into the proximal right atrium. Wires were removed and each lumen was aspirated and flushed and blood was obtained prior to flushing with heparinized saline. Plates were applied and the area was flushed again. Biopatch and sterile dressing was applied. Patient tolerated the procedure well. No immediate postprocedural complications FINDINGS: Please see procedure note above IMPRESSION: Successful fluoroscopic guided exchange of a tunneled cuffed dual-lumen left internal jugular smallbore catheter.
[2021-02-14] MEDS ORDERED: PHENYLEPHRINE/NS 1,000 MCG/10 ML SYRINGE (OR USE) IV ONE (15:05)
[2021-02-14 16:07] VITALS: BP 95/58
[2021-02-14] MEDS ORDERED: ACETAMINOPEN W/CODEINE 120-12MG ORAL LIQD 5 ML FEEDTUBE PRN (16:32)
== END 2021-02-14 09:36 | disposition home or self-care (01) ==
LOC: CATHLABREC 09:35
PROVIDERS: ATTEND Radiology Diagnostic Radiology
DX: T82.41XA Breakdown (mechanical) of vascular dialysis catheter, initial encounter (principal); F32.9 Major depressive disorder, single episode, unspecified; K31.84 Gastroparesis; E11.51 Type 2 diabetes mellitus with diabetic peripheral angiopathy without gangrene; Z87.891 Personal history of nicotine dependence; Z79.899 Other long term (current) drug therapy; Z93.1 Gastrostomy status; Z98.890 Other specified postprocedural states; Y83.8 Other surgical procedures as the cause of abnormal reaction of the patient, or of later complication, without mention of misadventure at the time of the procedure
CPT/HCPCS: 36415; 36581; 77001; 80048; 85027; 85610; 85730; C1751; C1769; J1644; J2370; J2405; J3490; J7030; J7502; Q0162

== ENCOUNTER 2021-04-25 07:31 | Day surgery (SDC) | payer MEDICARE ==
[2021-04-25 10:32] LABS: Basophils % (Auto) 0.3 % (0.0-1.8); Eosinophils % (Auto) 0.1 % (0.0-4.3); Hematocrit 32.1 % (30.3-42.9); Hemoglobin 10.1 gm/dl (10.1-14.3); Lymphocytes # (Auto) 2.5 K/mm3 (1.2-5.4); Lymphocytes % (Auto) 46.1 % (13.4-35.0); Mean Corpuscular HGB Conc 32 % (30-34); Mean Corpuscular Volume 87 fl (79-97); Monocytes # (Auto) 0.5 K/mm3 (0.0-0.8); Monocytes % (Auto) 8.4 % (0.0-7.3); Platelet Count 230 K/mm3 (140-440); Red Cell Distribution Width 15.7 % (13.2-15.2)
[2021-04-25 10:46] LABS: BUN/Creatinine Ratio 8; Blood Urea Nitrogen 6 mg/dL (7-17); Calcium 8.9 mg/dL (8.4-10.2); Hemolysis Index 21
[2021-04-25] MEDS ORDERED: HYDROmorphone 1 MG/1 ML INJ ONE ×2 (10:59→12:35)
[2021-04-25] MEDS ORDERED: LIDOCAINE MPF (2%) 20 MG/1 ML VIAL 5 ML ONE (11:00)
[2021-04-25] MEDS ORDERED: propofoL 200 MG/20 ML VIAL IV ONE ×3 (11:00)
[2021-04-25] MEDS ORDERED: MIDAZOLAM 2 MG/2 ML INJ ONE (11:00)
[2021-04-25] MEDS ORDERED: SODIUM CHLORIDE 0.9% 1000 ML 1,000 ML IV SCH (11:00)
[2021-04-25] MEDS ORDERED: ONDANSETRON 4 MG/2 ML INJ ONE (11:00)
[2021-04-25] MEDS ORDERED: LIDOCAINE 1%/EPINEPHRINE 1:100,000 VIAL (20 ML) INFILTRATI ONE ×2 (11:10→12:11)
[2021-04-25] MEDS ORDERED: HEPARIN 10,000 UNITS/10 ML VIAL ONE (11:10)
[2021-04-25] MEDS ORDERED: HEPARIN/NS 5000 UNIT/500ML 500 ML IR ONE (11:10)
--- NOTE | 2021-04-25 11:10 | Short Stay Summary ---
Short Stay Documentation Date of service: 04/25/21 Narrative H&P: 45-year-old female with chronic TPN dependence with TPN catheter malfunction with need for removal and placement of new TPN catheter. - History Principal diagnosis: TPN catheter malfunction Past Medical History: other (SVC syndrome, gastroparesis, TPN catheter malfunction, anxiety/depression) Past Surgical History: bowel surgery, Other (SVC stenting, TPN dependence) - Allergies and Medications Current Medications: Allergies dexamethasone [From Decadron] Allergy (Verified 12/25/18 16:29) Angioedema diazepam [From Valium] Allergy (Verified 12/25/18 16:29) Angioedema ketorolac [From Toradol] Allergy (Verified 12/25/18 16:29) Swelling metoclopramide [From Reglan] Allergy (Verified 12/25/18 16:29) Unknown Penicillins Allergy (Verified 12/25/18 16:29) Swelling prochlorperazine [From Compazine] Allergy (Verified 12/25/18 16:29) Unknown promethazine [From Phenergan] Allergy (Verified 12/25/18 16:29) Swelling tramadol Allergy (Verified 12/25/18 16:29) Swelling adhesive tape Adverse Reaction (Verified 12/25/18 16:29) Itching fentanyl Adverse Reaction (Verified 12/25/18 16:29) Dizziness Apple Allergy (Uncoded 06/09/18 15:36) Swelling Sour cream Allergy (Uncoded 06/09/18 15:36) Swelling Whip cream Allergy (Uncoded 06/09/18 15:36) Swelling Home Medications Medication Instructions Recorded Confirmed Last Taken Type Quetiapine Fumarate [SEROquel] 400 mg PO HS 12/07/18 12/12/20 12/11/20 History 400 mg Enoxaparin 80 mg SUB-Q Q12HR #30 syringe 12/09/18 12/12/20 12/11/20 09:00 Rx 80 mg Ondansetron [Zofran Oral Liq] 4 mg PO PRN PRN 06/02/19 12/12/20 12/11/20 History 4 mg Sodium Chloride 0.9 % (Flush) 10 ml IJ TID #90 syringe 10/11/20 12/12/20 12/11/20 Rx [[place] Sodium Chlor Flush] 10 ml Active Medications Sodium Chloride (Nacl 0.9% 1000 Ml) 1,000 mls @ 42 mls/hr IV DIRECT HERI - Physical exam General appearance: no acute distress Lungs: Normal air movement Extremities: abnormal (TPN line with pain with no evidence of erythema or exudate) - Brief post op/procedure progress note Date of procedure: 04/25/21 Pre-op diagnosis: Catheter malfunction, gastroparesis, TPN dependence Post-op diagnosis: same Procedure: 1. Ultrasound-guided puncture of the right internal jugular vein 2. Venography of the SVC 3. Fluoroscopic-guided placement of a right internal jugular tunneled cuffed smallbore catheter. 4. Fluoroscopic guided removal of the left internal jugular tunneled cuffed smallbore catheter. Anesthesia: MAC Surgeon: MAURICIO SOTO Estimated blood loss: minimal Condition: stable - Hospital course Hospital course: Patient tolerated the procedure well. No immediate postprocedural complications. Discharge with ciprofloxacin and Tylenol 3 with codeine. - Disposition Condition at discharge: Stable Disposition: 01 HOME / SELF CARE / HOMELESS - Discharge Diagnoses (1) Chronic superior vena cava occlusion Status: Acute (2) Malfunction of gastrostomy tube Status: Acute (3) Malfunction of peripheral inserted central catheter Status: Acute Short Stay Discharge Plan Activity: advance as tolerated Weight Bearing Status: Weight Bear as Tolerated Diet: regular Wound: keep clean and dry Follow up with: SARAHY MORA [Other] - 7 Days Prescriptions: Ciprofloxacin HCl 500 mg PO BID 21 Days #42
--- NOTE | 2021-04-25 11:24 | Anesthesia Day of Surgery ---
Anesthesia Day of Surgery - Day of Surgery Patient Examined: Yes Patient H&P Reviewed: Yes Patient is NPO: Yes
--- NOTE | 2021-04-25 11:24 | Anesthesia Consultation ---
Anesthesia Consult and Med Hx Date of service: 04/25/21 - Airway Anesthetic Teeth Evaluation: Good ROM Head & Neck: Adequate Mental/Hyoid Distance: Adequate Mallampati Class: Class II Intubation Access Assessment: Probably Good - Pre-Operative Health Status ASA Pre-Surgery Classification: ASA3 Proposed Anesthetic Plan: MAC - Pulmonary Hx Smoking: Yes (former) Hx Respiratory Symptoms: No - Cardiovascular System Hx Hypertension: No Hx Heart Attack/AMI: No Hx Percutaneous Transluminal Coronary Angioplasty (PTCA): No Hx Cardia Arrhythmia: No Hx Pacemaker: No Hx Internal Defibrillator: No Hx Peripheral Vascular Disease: Yes (right upper arm vein thrombosis, SVC stenosis) - Central Nervous System CVA: No - Gastrointestinal Hx Gastroesophageal Reflux Disease: No (gastroparesis) - Endocrine Hx Renal Disease: No Hx End Stage Renal Disease: No Hx Liver Disease: No Hx Non-Insulin Dependent Diabetes: Yes (occasional hypoglycemia) Hx Thyroid Disease: No - Hematic Hx Anemia: Yes - Other Systems Hx Obesity: No - Additional Comments Anesthesia Medical History Comments: Has had similar procedure under MAC multiple times at this facility. Previous anesthesia record reviewed.
[2021-04-25] MEDS ORDERED: CLINDAMYCIN 600 MG/50 mL 600 MG/50 ML BAG IV NR (12:00)
[2021-04-25] MEDS: HYDROmorphone 1 MG/1 ML INJ IV PRN ×2 (12:30→12:40)
[2021-04-25] MEDS ORDERED: diphenhydrAMINE 50 MG/ML VIAL IV PRN (12:34)
[2021-04-25] MEDS ORDERED: diphenhydrAMINE 50 MG/ML VIAL ONE (12:36)
[2021-04-25 13:36] VITALS: BP 122/76
[2021-04-25 13:39] LABS: INR 0.92 (0.87-1.13)
[2021-04-25 13:40] LABS: Partial Thromboplastin Time 41.3 Sec. (24.2-36.6)
--- NOTE | 2021-04-25 13:54 | Operative Report ---
Operative Report Operative Report: EXAM: 1. Ultrasound-guided puncture of the right internal jugular vein 2. Venography of the SVC 3. Fluoroscopic-guided placement of a right internal jugular tunneled cuffed smallbore catheter. 4. Fluoroscopic guided removal of the left internal jugular tunneled cuffed smallbore catheter. DATE: 04/25/2021 INDICATION: Tunneled TPN catheter malfunction in patient with TPN dependence due to gastroparesis with known SVC syndrome treated with angioplasty. MEDICATIONS: Please see nursing report for full details. DEVICES: 5 Iraqi dual-lumen tunneled smallbore catheter HEALTH SAFETY MANAGER: MAURICIO SOTO MD CONTRAST: None ANESTHESIA: MAC PROCEDURE: The risks, benefits, and alternatives were discussed and informed consent was obtained. The patient was transported to the angiography suite in satisfactory/stable condition and was transported onto the angiography table. The patient's right internal jugular vein was assessed with ultrasound and determined to be patent prior to procedure. The patient was prepped and draped in a sterile fashion. The puncture site was anesthetized. Under sonographic guidance, the right internal jugular vein was punctured with a 21-gauge micropuncture needle and a 0.018 inch wire was advanced into the inferior vena cava. The micropuncture needle was exchanged for a transitional dilator and the wire was retracted into the right atrium to jeff intravascular distance. The wire and inner dilator were removed. Through the transitional dilator, digital subtraction angiography was performed demonstrating a widely patent SVC stent and wide patency of the bilateral innominate veins. A separate 0.018 inch wire was advanced through the transitional dilator into the inferior vena cava. A suitable exit site was identified on the patient's chest inferior and lateral to the venotomy. The site was anesthetized with local anesthetic and the track was anesthetized. Dermatotomy was made. The small bore was attached to the tunneling device and tunneled between the dermatotomy to the venotomy. Over the 0.018 inch wire, serial dilatation was performed with ultimate placement of a peel-away sheath. The catheter was advanced through the peel- away sheath after the wire was removed and positioned centrally under fluoroscopic guidance. The peel-away sheath was removed. 4-0 Vicryl suture was used to close the venotomy and Dermabond was then applied. 3-0 Ethilon suture was used to secure the catheter at the dermatotomy. The catheter was charged with heparinized saline. The catheter was able to flush and aspirate without issue. Sterile dressing applied and Biopatch applied. The neck was then turned towards the contralateral side and the left neck was prepped and draped in sterile fashion. The left tunneled catheter was prepped and draped in a sterile fashion. Lidocaine was infiltrated at the dermatotomy site. Heparin was withdrawn from both lumens. Using a hemostat, blunt dissection was performed and the cuff was extracted. The catheter was extracted under fluoroscopic and pressure was held at the venotomy and dermatotomy site un til hemostasis was achieved. Sterile bandage was then applied. The patient tolerated the procedure without issue. FINDINGS: Please see procedure note above IMPRESSION: 1. Successful ultrasound and fluoroscopically guided placement of a right internal jugular tunneled cuffed smallbore catheter. 2. Successful fluoroscopic guided removal of the left internal jugular tunneled cuffed smallbore catheter. 3. SVC venotomy
== END 2021-04-25 14:00 | disposition home or self-care (01) ==
LOC: CATHLABREC 07:31 → CATH 07:31 → CATHLABREC 14:00
PROVIDERS: ATTEND Radiology Diagnostic Radiology
DX: T82.898A Other specified complication of vascular prosthetic devices, implants and grafts, initial encounter (principal); T82.514A Breakdown (mechanical) of infusion catheter, initial encounter; I12.0 Hypertensive chronic kidney disease with stage 5 chronic kidney disease or end stage renal disease; N18.6 End stage renal disease; E11.22 Type 2 diabetes mellitus with diabetic chronic kidney disease; E11.51 Type 2 diabetes mellitus with diabetic peripheral angiopathy without gangrene; K31.84 Gastroparesis; K21.9 Gastro-esophageal reflux disease without esophagitis; Z90.710 Acquired absence of both cervix and uterus; Z20.822 Contact with and (suspected) exposure to COVID-19; Z87.01 Personal history of pneumonia (recurrent); Z88.8 Allergy status to other drugs, medicaments and biological substances; Z88.0 Allergy status to penicillin; Z79.899 Other long term (current) drug therapy; Z87.891 Personal history of nicotine dependence; Z90.49 Acquired absence of other specified parts of digestive tract; Z98.890 Other specified postprocedural states
CPT/HCPCS: 36415; 36558; 36589; 77001; 80048; 85025; 85610; 85730; 87116; C1751; C1769; J1170; J1200; J1644; J1956; J2250; J2405; J2704; J3490; J7030; J7502; U0003; J7120; Q0162; Q9967

== ENCOUNTER 2021-07-31 07:18 | Day surgery (SDC) | payer MEDICARE ==
[2021-07-31] MEDS ORDERED: SODIUM CHLORIDE 0.9% 1000 ML 1,000 ML IV SCH (08:45)
[2021-07-31 09:21] LABS: Hematocrit 32.5 % (30.3-42.9); Hemoglobin 10.5 gm/dl (10.1-14.3); Mean Corpuscular HGB Conc 32 % (30-34); Mean Corpuscular Volume 86 fl (79-97); Platelet Count 260 K/mm3 (140-440); Red Blood Count 3.78 M/mm3 (3.65-5.03); Red Cell Distribution Width 15.3 % (13.2-15.2)
[2021-07-31] MEDS ORDERED: HEPARIN/NS 5000 UNIT/500ML 500 ML IR ONE ×2 (09:40→10:56)
[2021-07-31 09:42] LABS: Blood Urea Nitrogen 8 mg/dL (7-17); Calcium 9.3 mg/dL (8.4-10.2); Hemolysis Index 2
[2021-07-31 09:43] LABS: BUN/Creatinine Ratio 11
[2021-07-31 09:49] LABS: INR 0.89 (0.87-1.13)
[2021-07-31 09:51] LABS: Partial Thromboplastin Time 27.4 Sec. (24.2-36.6)
[2021-07-31] MEDS ORDERED: ONDANSETRON 4 MG/2 ML INJ ONE (10:02)
[2021-07-31] MEDS ORDERED: fentaNYL 100 MCG/2 ML INJ ONE (10:02)
[2021-07-31] MEDS ORDERED: propofoL 200 MG/20 ML VIAL IV ONE ×4 (10:02→10:03)
[2021-07-31] MEDS ORDERED: ePHEDrine SULFATE 50 MG/1 ML INJ ONE (10:03)
[2021-07-31] MEDS ORDERED: KETAMINE/STERILE WATER 50 MG/ML SYRINGE ONE (10:03)
[2021-07-31] MEDS: LIDOCAINE 2%/EPINEPHRINE 1:200,000 VIAL (20 ML) INFILTRATI ONE ×2 (10:17→10:48)
--- NOTE | 2021-07-31 10:19 | Anesthesia Consultation ---
Anesthesia Consult and Med Hx Date of service: 07/31/21 - Airway Anesthetic Teeth Evaluation: Good ROM Head & Neck: Adequate Mental/Hyoid Distance: Adequate Mallampati Class: Class II Intubation Access Assessment: Probably Good - Pre-Operative Health Status ASA Pre-Surgery Classification: ASA3 Proposed Anesthetic Plan: MAC - Pulmonary Hx Smoking: Yes (former smoker quit several years ago) Hx Respiratory Symptoms: No - Cardiovascular System Hx Hypertension: No Hx Heart Attack/AMI: No Hx Percutaneous Transluminal Coronary Angioplasty (PTCA): No Hx Peripheral Vascular Disease: Yes (right upper arm vein thrombosis, SVC stenosis) - Central Nervous System CVA: No Hx Psychiatric Problems: Yes (depression) - Gastrointestinal Hx Gastroesophageal Reflux Disease: No (gastroparesis) - Endocrine Hx Renal Disease: No Hx End Stage Renal Disease: No Hx Liver Disease: No Hx Non-Insulin Dependent Diabetes: Yes (occasional hypoglycemia) Hx Thyroid Disease: No - Additional Comments Anesthesia Medical History Comments: No hx anesthetic complications. Has had similar procedure under MAC anesthetic several times at this facility. Previous anesthesia record reviewed.
[2021-07-31] MEDS ORDERED: ONDANSETRON 4 MG/2 ML INJ IV PRN (10:20)
[2021-07-31] MEDS ORDERED: HYDROmorphone 1 MG/1 ML INJ IV PRN (10:20)
[2021-07-31] MEDS ORDERED: diphenhydrAMINE 50 MG/ML VIAL IV PRN (10:20)
--- NOTE | 2021-07-31 10:20 | Anesthesia Day of Surgery ---
Anesthesia Day of Surgery - Day of Surgery Patient Examined: Yes Patient H&P Reviewed: Yes Patient is NPO: Yes
[2021-07-31] MEDS ORDERED: MIDAZOLAM 2 MG/2 ML INJ ONE (10:28)
[2021-07-31] MEDS ORDERED: CLINDAMYCIN 600 MG/50 mL 600 MG/50 ML BAG IV ONE (10:41)
[2021-07-31] MEDS ORDERED: diphenhydrAMINE 50 MG/ML VIAL ONE ×2 (10:49→15:12)
[2021-07-31] MEDS ORDERED: HEPARIN 10,000 UNITS/10 ML VIAL ONE (11:08)
--- NOTE | 2021-07-31 11:47 | Short Stay Summary ---
Short Stay Documentation Date of service: 07/31/21 Narrative H&P: 45-year-old female with chronic TPN dependence with TPN catheter malfunction with need for removal and placement of new TPN catheter. - History Principal diagnosis: TPN catheter malfunction Past Medical History: other (SVC syndrome, gastroparesis, TPN catheter malfunction, anxiety/depression) Past Surgical History: bowel surgery, Other (SVC stenting, TPN dependence) - History Principal diagnosis: SVC syndrome, TPN line malfunction H&P: obtained from office - Allergies and Medications Current Medications: Allergies dexamethasone [From Decadron] Allergy (Verified 12/25/18 16:29) Angioedema diazepam [From Valium] Allergy (Verified 12/25/18 16:29) Angioedema ketorolac [From Toradol] Allergy (Verified 12/25/18 16:29) Swelling metoclopramide [From Reglan] Allergy (Verified 12/25/18 16:29) Unknown Penicillins Allergy (Verified 12/25/18 16:29) Swelling prochlorperazine [From Compazine] Allergy (Verified 12/25/18 16:29) Unknown promethazine [From Phenergan] Allergy (Verified 12/25/18 16:29) Swelling tramadol Allergy (Verified 12/25/18 16:29) Swelling adhesive tape Adverse Reaction (Verified 12/25/18 16:29) Itching fentanyl Adverse Reaction (Verified 12/25/18 16:29) Dizziness Apple Allergy (Uncoded 06/09/18 15:36) Swelling Sour cream Allergy (Uncoded 06/09/18 15:36) Swelling Whip cream Allergy (Uncoded 06/09/18 15:36) Swelling Home Medications Medication Instructions Recorded Confirmed Last Taken Type Quetiapine Fumarate [SEROquel] 400 mg PO HS 12/07/18 07/31/21 07/30/21 History 400 mg Enoxaparin 80 mg SUB-Q Q12HR #30 syringe 12/09/18 07/31/21 07/30/21 Rx 80 mg Ondansetron [Zofran Oral Liq] 4 mg PO PRN PRN 06/02/19 07/31/21 07/30/21 History 4 mg Sodium Chloride 0.9 % (Flush) 10 ml IJ TID #90 syringe 10/11/20 07/31/21 07/30/21 Rx [[place] Sodium Chlor Flush] 10 ml Active Medications Hydromorphone HCl (Hydromorphone 1 Mg/1 Ml Inj) 0.5 mg IV Q10MIN PRN PRN Reason: Pain , Severe (7-10) Stop: 07/31/21 20:00 Sodium Chloride (Nacl 0.9% 1000 Ml) 1,000 mls @ 42 mls/hr IV DIRECT HERI Last Admin: 07/31/21 10:18 Dose: 100 mls - Physical exam General appearance: no acute distress HEENT: Other (Mild head and neck swelling) Lungs: Normal air movement Gastrointestinal: normal, normoactive bowel sounds Extremities: normal temperature, normal color - Brief post op/procedure progress note Date of procedure: 07/31/21 Pre-op diagnosis: SVC syndrome, TPN line malfunction Post-op diagnosis: same Procedure: 1. Ultrasound-guided access of the left internal jugular vein. 2. SVC angiography. 3. Fluoroscopic guided removal of the right internal jugular tunneled cuffed dual-lumen smallbore catheter 4. Angioplasty of the superior vena cava with a 12 mm x 40 mm angioplasty balloon 5. Fluoroscopic guided placement of a left internal jugular tunneled cuffed dual-lumen smallbore catheter Anesthesia: MAC Surgeon: MAURICIO SOTO Estimated blood loss: minimal Condition: stable - Hospital course Hospital course: Patient tolerated the procedure well. No immediate postprocedural complications. Ready for discharge. - Disposition Condition at discharge: Stable Disposition: 01 HOME / SELF CARE / HOMELESS - Discharge Diagnoses (1) Chronic superior vena cava occlusion Status: Acute (2) DVT (deep venous thrombosis) Status: Acute Qualifiers: DVT location: upper extremity Chronicity: acute Laterality: right (3) Malfunction of peripheral inserted central catheter Status: Acute (4) Superior vena cava syndrome Status: Chronic Short Stay Discharge Plan Activity: advance as tolerated Weight Bearing Status: Weight Bear as Tolerated Diet: advance as tolerated Wound: keep clean and dry Additional Instructions: follow up with Primary medical Doctor in 1 week, return to Emergency room for medical emergency. Follow up with: PRIMARY CARE, [Primary Care Provider] - 7 Days Prescriptions: Fluconazole [Diflucan TAB] 400 mg PO QDAY #14 tablet
--- NOTE | 2021-07-31 11:53 | Operative Report ---
Operative Report Operative Report: EXAM: 1. Ultrasound-guided access of the left internal jugular vein. 2. SVC angiography. 3. Fluoroscopic guided removal of the right internal jugular tunneled cuffed dual-lumen smallbore catheter 4. Angioplasty of the superior vena cava with a 12 mm x 40 mm angioplasty balloon 5. Fluoroscopic guided placement of a left internal jugular tunneled cuffed dual-lumen smallbore catheter DATE: 07/31/2021 INDICATION: Tunneled TPN catheter malfunction in patient with TPN dependence due to gastroparesis with known SVC syndrome with recurrent SVC syndrome symptoms. MEDICATIONS: Please see nursing report for full details. DEVICES: 5 Micronesian dual-lumen tunneled smallbore catheter DRILL HAND: MAURICIO SOTO MD CONTRAST: None ANESTHESIA: MAC PROCEDURE: The risks, benefits, and alternatives were discussed and informed consent was obtained. The patient was transported to the angiography suite in satisfactory/stable condition and was transported onto the angiography table. The patient's left internal jugular vein was assessed with ultrasound and determined to be patent prior to procedure. The patient's bilateral neck and left groin were prepped and draped in a sterile fashion. The puncture site was anesthetized. Under sonographic guidance, the left internal jugular vein was punctured with a 21-gauge micropuncture needle and a 0.018 inch wire was advanced into the left innominate vein, and then into the right innominate vein and right jugular vein. The micropuncture needle was exch anged for a transitional dilator. The wire and inner dilator were removed. Through the transitional dilator, digital subtraction angiography was performed demonstrating a narrowing of the superior portion of the SVC stent with patency of the bilateral innominate veins. 0.035 inch wire was then passed into the SVC stent into the IVC. Transitional dilator was exchanged for 5 Micronesian sheath and digital subtraction angiography was performed demonstrating 40% narrowing at the superior portion of the SVC stent with patency of the rest of the stent. The innominate veins were patent. Patient was partially heparinized and the sheath was then exchanged for a 7 Micronesian sheath. The neck was then transitory only turned towards the contralateral side and the right neck was evaluated. Lidocaine was infiltrated at the dermatotomy site. Heparin was withdrawn from both lumens. Using a hemostat, blunt dissection was performed and the cuff was extracted. The catheter was extracted under fluorosc opic and pressure was held at the venotomy and dermatotomy site until hemostasis was achieved. Catheter tip was cut off and sent for culture. Sterile bandage was applied. I then changed my gloves and gown. I returned to the left jugular access and using a 12 mm x 40 mm angioplasty balloon and performed angioplasty of the SVC stent for prolonged duration at burst pressure. Digital subtraction angiography demonstrated less than 10% residual narrowing of the superior portion of the SVC stent with patency of the rest of the stent. Sheath was then exchanged for a 8 Micronesian 23 cm peel-away sheath was then advanced over the wire and into the IVC. A suitable exit site was identified on the patient's chest inferior and lateral to the venotomy. The site was anesthetized with local anesthetic and the track was anesthetized. Dermatotomy was made. The small bore was attached to the tunneling device and tunneled between the dermatotomy to the venotomy. The catheter was advanced through the peel-away sheath after the wire was removed and positioned centrally under fluoroscopic guidance. The peel-away sheath was removed. 4-0 Vicryl suture was used to close the venotomy and Dermabond was then applied. 3-0 Ethilon suture was used to secure the catheter at the dermatotomy. The catheter was charged with heparinized saline. The catheter was able to flush and aspirate without issue. Sterile dressing applied and Biopatch applied. Sterile bandage was then applied. The patient tolerated the procedure without issue. FINDINGS: Please see procedure note above IMPRESSION: 1. Successful ultrasound and fluoroscopically guided placement of a left internal jugular tunneled cuffed smallbore catheter. 2. Successful fluoroscopic guided removal of the right internal jugular tunnel ed cuffed smallbore catheter. 3. SVC venography and SVC angioplasty
[2021-07-31] MEDS ORDERED: PHENYLEPHRINE/NS 1,000 MCG/10 ML SYRINGE (OR USE) IV ONE (12:33)
[2021-07-31] MEDS ORDERED: diphenhydrAMINE 50 MG/ML VIAL IV ONE (15:14)
[2021-07-31 15:33] VITALS: BP 100/68
== END 2021-07-31 07:19 | disposition home or self-care (01) ==
LOC: CATHLABREC 07:18
PROVIDERS: ATTEND Radiology Diagnostic Radiology
DX: T82.514A Breakdown (mechanical) of infusion catheter, initial encounter (principal); I87.1 Compression of vein; K31.84 Gastroparesis; T80.218A Other infection due to central venous catheter, initial encounter; E11.51 Type 2 diabetes mellitus with diabetic peripheral angiopathy without gangrene; F32.9 Major depressive disorder, single episode, unspecified; D64.9 Anemia, unspecified; Z88.8 Allergy status to other drugs, medicaments and biological substances; Z88.0 Allergy status to penicillin; Z79.899 Other long term (current) drug therapy; Z86.39 Personal history of other endocrine, nutritional and metabolic disease; Z86.718 Personal history of other venous thrombosis and embolism; Z90.49 Acquired absence of other specified parts of digestive tract; Z90.710 Acquired absence of both cervix and uterus; Z98.82 Breast implant status; Z87.891 Personal history of nicotine dependence; Z98.890 Other specified postprocedural states; Z83.3 Family history of diabetes mellitus; Z80.8 Family history of malignant neoplasm of other organs or systems; Z91.81 History of falling; Y82.8 Other medical devices associated with adverse incidents; Y92.89 Other specified places as the place of occurrence of the external cause
CPT/HCPCS: 36415; 36558; 36589; 37248; 77001; 80048; 82962; 85027; 85610; 85730; 87116; C1725; C1751; C1894; J1170; J1200; J1644; J2250; J2370; J2405; J2704; J3010; J3490; J7030; J7502; Q9967

== ENCOUNTER 2021-11-21 07:17 | Day surgery (SDC) | payer MEDICARE ==
[2021-11-21 08:44] LABS: Basophils # (Auto) 0.1 K/mm3 (0.0-0.1); Basophils % (Auto) 0.6 % (0.0-1.8); Hematocrit 33.2 % (30.3-42.9); Hemoglobin 10.7 gm/dl (10.1-14.3); Lymphocytes # (Auto) 2.4 K/mm3 (1.2-5.4); Lymphocytes % (Auto) 30.3 % (13.4-35.0); Mean Corpuscular HGB Conc 32 % (30-34); Mean Corpuscular Volume 83 fl (79-97); Monocytes # (Auto) 0.5 K/mm3 (0.0-0.8); Monocytes % (Auto) 6.8 % (0.0-7.3); Platelet Count 239 K/mm3 (140-440); Red Blood Count 3.98 M/mm3 (3.65-5.03); Red Cell Distribution Width 17.2 % (13.2-15.2)
[2021-11-21 08:52] LABS: INR 0.83 (0.87-1.13)
[2021-11-21 08:53] LABS: Partial Thromboplastin Time 27.5 Sec. (24.2-36.6)
[2021-11-21 08:56] LABS: BUN/Creatinine Ratio 11; Blood Urea Nitrogen 10 mg/dL (7-17); Calcium 9.5 mg/dL (8.4-10.2); Hemolysis Index 3
--- NOTE | 2021-11-21 09:14 | Anesthesia Consultation ---
Anesthesia Consult and Med Hx Date of service: 11/21/21 - Airway Anesthetic Teeth Evaluation: Good ROM Head & Neck: Adequate Mental/Hyoid Distance: Adequate Mallampati Class: Class II Intubation Access Assessment: Probably Good - Pulmonary Exam CTA: Yes - Cardiac Exam Cardiac Exam: RRR - Pre-Operative Health Status ASA Pre-Surgery Classification: ASA3 Proposed Anesthetic Plan: MAC - Pulmonary Hx Smoking: Yes (former smoker quit several years ago) Hx Asthma: No Hx Respiratory Symptoms: No COPD: No - Cardiovascular System Hx Hypertension: No Hx Heart Attack/AMI: No Hx Percutaneous Transluminal Coronary Angioplasty (PTCA): No Hx Cardia Arrhythmia: No Hx Pacemaker: No Hx Internal Defibrillator: No Hx Peripheral Vascular Disease: Yes (right upper arm vein thrombosis, SVC stenosis) - Central Nervous System Hx Seizures: No CVA: No Hx Psychiatric Problems: Yes (depression) - Gastrointestinal Hx Gastroesophageal Reflux Disease: No (gastroparesis) - Endocrine Hx Renal Disease: No Hx End Stage Renal Disease: No Hx Liver Disease: No Hx Non-Insulin Dependent Diabetes: Yes (occasional hypoglycemia) Hx Thyroid Disease: No - Hematic Hx Anemia: Yes Hx Sickle Cell Disease: No - Other Systems Hx Cancer: No Hx Obesity: No - Additional Comments Anesthesia Medical History Comments: No hx anesthetic complications. Has had similar procedure under MAC anesthetic several times at this facility. Previous anesthesia record reviewed.
--- NOTE | 2021-11-21 09:14 | Anesthesia Day of Surgery ---
Anesthesia Day of Surgery - Day of Surgery Patient Examined: Yes Patient H&P Reviewed: Yes Patient is NPO: Yes
[2021-11-21] MEDS: SODIUM CHLORIDE 0.9% 1000 ML 1,000 ML IV SCH ×2 (09:24→10:49)
[2021-11-21] MEDS ORDERED: MIDAZOLAM 2 MG/2 ML INJ ONE (09:56)
[2021-11-21] MEDS ORDERED: HYDROmorphone 1 MG/1 ML INJ ONE (09:56)
[2021-11-21] MEDS ORDERED: LIDOCAINE MPF (2%) 20 MG/1 ML VIAL 5 ML ONE (09:58)
[2021-11-21] MEDS ORDERED: ePHEDrine SULFATE 50 MG/1 ML INJ ONE (09:58)
[2021-11-21] MEDS ORDERED: HEPARIN/NS 5000 UNIT/500ML 1,000 ML IR ONE (10:34)
[2021-11-21] MEDS ORDERED: HEPARIN 10,000 UNITS/10 ML VIAL ONE (10:34)
[2021-11-21] MEDS: LIDOCAINE 2%/EPINEPHRINE 1:200,000 VIAL (20 ML) INFILTRATI ONE ×2 (10:48→11:18)
--- NOTE | 2021-11-21 12:50 | Short Stay Summary ---
Short Stay Documentation Date of service: 11/21/21 Narrative H&P: 45-year-old female with chronic TPN dependence with TPN catheter malfunction with head and neck swelling and lower extremity swelling concerning for SVC stent malfunction or lower extremity swelling with need for removal and placement of new TPN catheter. - History Principal diagnosis: TPN catheter malfunction Past Medical History: other (SVC syndrome, gastroparesis, TPN catheter malfunct ion, anxiety/depression) Past Surgical History: bowel surgery, Other (SVC stenting, TPN dependence) - History Principal diagnosis: TPN malfunction, SVC stent malfunction H&P: obtained from office - Allergies and Medications Current Medications: Allergies dexamethasone [From Decadron] Allergy (Verified 12/25/18 16:29) Angioedema diazepam [From Valium] Allergy (Verified 12/25/18 16:29) Angioedema ketorolac [From Toradol] Allergy (Verified 12/25/18 16:29) Swelling metoclopramide [From Reglan] Allergy (Verified 12/25/18 16:29) Unknown Penicillins Allergy (Verified 12/25/18 16:29) Swelling prochlorperazine [From Compazine] Allergy (Verified 12/25/18 16:29) Unknown promethazine [From Phenergan] Allergy (Verified 12/25/18 16:29) Swelling tramadol Allergy (Verified 12/25/18 16:29) Swelling adhesive tape Adverse Reaction (Verified 12/25/18 16:29) Itching fentanyl Adverse Reaction (Verified 12/25/18 16:29) Dizziness Apple Allergy (Uncoded 06/09/18 15:36) Swelling Sour cream Allergy (Uncoded 06/09/18 15:36) Swelling Whip cream Allergy (Uncoded 06/09/18 15:36) Swelling Home Medications Medication Instructions Recorded Confirmed Last Taken Type Quetiapine Fumarate [SEROquel] 400 mg PO HS 12/07/18 11/21/21 11/20/21 History Enoxaparin 80 mg SUB-Q Q12HR #30 syringe 12/09/18 11/21/21 11/20/21 Rx Ondansetron [Zofran Oral Liq] 4 mg PO PRN PRN 06/02/19 11/21/21 11/20/21 History Sodium Chloride 0.9 % (Flush) 10 ml IJ TID #90 syringe 10/11/20 11/21/21 11/20/21 Rx [[place] Sodium Chlor Flush] Active Medications Diphenhydramine HCl (Diphenhydramine 50 Mg/Ml Vial) 25 mg IV PRN PRN PRN Reason: Itching Stop: 11/21/21 18:00 Hydromorphone HCl (Hydromorphone 0.5 Mg/0.5 Ml Inj) 0.5 mg IV Q10MIN PRN PRN Reason: Pain , Severe (7-10) Stop: 11/21/21 18:00 Sodium Chloride (Nacl 0.9% 1000 Ml) 1,000 mls @ 42 mls/hr IV DIRECT HERI Stop: 11/21/21 20:00 Last Admin: 11/21/21 10:49 Dose: 42 mls/hr - Physical exam General appearance: no acute distress HEENT: Other (head and neck swelling, leg swelling) Lungs: Normal air movement Gastrointestinal: normal Extremities: normal temperature, normal color - Brief post op/procedure progress note Date of procedure: 11/21/21 Pre-op diagnosis: SVC syndrome, Line malfunction, swelling of the left arm and legs Post-op diagnosis: same Procedure: 1. Ultrasound-guided access of the right internal jugular vein. 2. SVC venography. 3. Selection of the IVC, right common iliac vein, right external iliac vein, right common femoral vein, and right superficial femoral monique with vengography. 4. Selection of the IVC, left common iliac vein, left external iliac vein, left common femoral vein, and left superficial femoral monique with vengography. 5. Fluoroscopic guided removal of the left internal jugular tunneled cuffed dual-lumen smallbore catheter 6. Angioplasty of the superior vena cava with a 12 mm x 40 mm angioplasty balloon Anesthesia: MAC Surgeon: MAURICIO SOTO Estimated blood loss: minimal Condition: stable - Hospital course Hospital course: Tolerated procedure well. No immediate post procedural complications. - Disposition Condition at discharge: Stable Disposition: 01 HOME / SELF CARE / HOMELESS - Discharge Diagnoses (1) Chronic superior vena cava occlusion Status: Acute (2) Extrinsic compression of artery Status: Acute (3) Malfunction of peripheral inserted central catheter Status: Acute (4) Gastroparesis Status: Chronic (5) Superior vena cava syndrome Status: Chronic Short Stay Discharge Plan Activity: advance as tolerated Weight Bearing Status: Weight Bear as Tolerated Diet: regular Wound: keep clean and dry (change left neck dressing daily until healed ; ) Follow up with: MAURICIO SOTO MD [Staff Physician] - 7 Days
[2021-11-21] MEDS: HYDROmorphone 0.5 MG/0.5 ML INJ IV PRN ×2 (13:00→13:45)
[2021-11-21] MEDS: diphenhydrAMINE 50 MG/ML VIAL IV PRN ×2 (13:02→13:45)
--- NOTE | 2021-11-21 13:18 | Operative Report ---
Operative Report Operative Report: EXAM: 1. Ultrasound-guided access of the right internal jugular vein. 2. SVC venography. 3. Selection of the IVC, right common iliac vein, right external iliac vein, right common femoral vein, and right superficial femoral monique with vengography. 4. Selection of the IVC, left common iliac vein, left external iliac vein, left common femoral vein, and left superficial femoral monique with vengography. 5. Fluoroscopic guided removal of the left internal jugular tunneled cuffed dual-lumen smallbore catheter 6. Angioplasty of the superior vena cava with a 12 mm x 40 mm angioplasty balloon 7. Fluoroscopic guided placement of a right internal jugular tunneled cuffed dual-lumen smallbore catheter DATE: 11/21/2021 INDICATION: Tunneled TPN catheter malfunction in patient with TPN dependence due to gastroparesis with known SVC syndrome with recurrent SVC syndrome symptoms. Patient also reports significant lower extremity swelling and some intermittent left upper extremity swelling. Concern for extrinsic compression. Concern for chronic deep venous thrombosis. MEDICATIONS: Please see nursing report for full details. DEVICES: 5 Salvadorean dual-lumen tunneled smallbore catheter PRICING STRATEGIST: MAURICIO SOTO MD CONTRAST: None ANESTHESIA: MAC PROCEDURE: The risks, benefits, and alternatives were discussed and informed consent was obtained. The patient was transported to the angiography suite in satisfactory/stable condition and was transported onto the angiography table. The patient's right internal jugular vein was assessed with ultrasound and determined to be patent prior to procedure. The patient's bilateral neck and left groin were prepped and draped in a sterile fashion. The puncture site was anesthetized. Under sonographic guidance, the right internal jugular vein was punctured with a 21-gauge micropuncture needle and a 0.018 inch wire was advanced into the right innominate vein, and then into the left innominate vein. The micropuncture needle was exchanged for a transitional dilator. The wire and inner dilator were removed. Through the transitional dilator, digital subtraction angiography was performed demonstrating a 50% stenosis of the superior portion of the SVC stent with patency of the bilateral innominate veins. 0.035 inch wire was then passed into the SVC stent into the left innominate vein. Angled catheter was advanced over the wire and used to select the left innominate vein. Then the left subclavian vein was selected. Then the left axillary vein was selected. Digital subtraction angiography demonstrated patency of the left axillary vein, subclavian vein, and left innominate vein. The right innominate vein was patent. The SVC had a 50% stenosis at the superior margin of the stent. The rest of the stent was widely patent. 0.035 inch wire was then passed through the SVC stent and into the IVC and then the right superficial femoral vein. Right superficial femoral vein was selected and digital subtraction angiography was performed demonstrating patency of the right superficial femoral vein, common femoral vein, external and common iliac veins, and IVC. The left superficial femoral vein was then selected and digital subtraction angiography was performed demonstrating patency of the left superficial femoral vein, common femoral vein, external and common iliac veins, and IVC. Patient was partially heparinized and the sheath was then exchanged for a 7 Salvadorean sheath. The neck was then transitory only turned towards the contralateral side and the left neck was evaluated. Lidocaine was infiltrated at the dermatotomy site. Heparin was withdrawn from both lumens. Using a hemostat, blunt dissection was performed and the cuff was extracted. The catheter was extracted under fluoroscopic and pressure was held at the venotomy and dermatotomy site until hemostasis was achieved. Catheter tip was cut off and sent for culture. Sterile bandage was applied. I then changed my gloves and gown. I returned to the right jugular access and using a 12 mm x 40 mm angioplasty balloon and performed angioplasty of the SVC stent for prolonged duration at burst pressure. Digital subtraction angiography demonstrated no residual narrowing of the superior portion of the SVC stent with patency of the rest of the stent. Sheath was then exchanged for a 5 Salv[place]orean peel-away sheath was then advanced over the wire and into the SVC. A suitable exit site was identified on the patient's chest inferior and lateral to the venotomy. The site was anesthetized with local anesthetic and the track was anesthetized. Dermatotomy was made. The small bore was attached to the tunneling device and tunneled between the dermatotomy to the venotomy. The catheter was advanced through the peel-away sheath after the wire was removed and positioned centrally under fluoroscopic guidance. The peel-away sheath was removed. 4-0 Vicryl suture was used to close the venotomy and Dermabond was then applied. 3-0 Ethilon suture was used to secure the catheter at the dermatotomy. The catheter was charged with heparinized saline. The catheter was able to flush and aspirate without issue. Sterile dressing applied and Biopatch applied. Sterile bandage was then applied. The patient tolerated the procedure without issue. FINDINGS: Please see procedure note above IMPRESSION: 1. Successful ultrasound and fluoroscopically guided placement of a right internal jugular tunneled cuffed smallbore catheter. 2. Successful fluoroscopic guided removal of the left internal jugular tunneled cuffed smallbore catheter. 3. SVC venography and SVC angioplasty 4. Multiple vessel selections and venography as described above.
[2021-11-21 14:03] VITALS: BP 126/60
== END 2021-11-21 14:40 | disposition home or self-care (01) ==
LOC: CATHLABREC 07:17
PROVIDERS: ATTEND Radiology Diagnostic Radiology
DX: Z45.2 Encounter for adjustment and management of vascular access device (principal); T82.898A Other specified complication of vascular prosthetic devices, implants and grafts, initial encounter; T82.598A Other mechanical complication of other cardiac and vascular devices and implants, initial encounter; K21.9 Gastro-esophageal reflux disease without esophagitis; I87.1 Compression of vein; D64.9 Anemia, unspecified; F32.9 Major depressive disorder, single episode, unspecified; E11.9 Type 2 diabetes mellitus without complications; Z88.8 Allergy status to other drugs, medicaments and biological substances; Z88.0 Allergy status to penicillin; Z79.899 Other long term (current) drug therapy; Z86.718 Personal history of other venous thrombosis and embolism; Z90.49 Acquired absence of other specified parts of digestive tract; Z98.82 Breast implant status; Z90.710 Acquired absence of both cervix and uterus; Z87.891 Personal history of nicotine dependence; Z91.81 History of falling; Z98.890 Other specified postprocedural states; Z83.3 Family history of diabetes mellitus; Y82.8 Other medical devices associated with adverse incidents; Y92.89 Other specified places as the place of occurrence of the external cause
CPT/HCPCS: 36415; 36558; 36589; 37248; 77001; 80048; 82962; 85025; 85610; 85730; 87076; 87116; 87186; C1725; C1751; C1769; C1894; J1170; J1200; J1644; J2250; J2704; J3490; J7030; 96374; 96375; Q9967